=== PATIENT | male | born 1955 | race Caucasian/White ===

== ENCOUNTER 2016-07-25 20:35 | Emergency (ER) | payer BC, OTHER ==
[2016-07-25 20:40] VITALS: BP 154/88; PULSE 106; RESP 22; TEMP 98.8; O2SAT 100
--- NOTE | 2016-07-25 22:09 | PD ---
HPI Chief Complaint: Suicide Ideation/Attempt Time Seen by Provider: 21:57 Travel History International Travel<30 days: No Contact w/Intl Traveler<30days: No Traveled to known affect area: No History of Present Illness HPI Patient is a 61-year-old male who presents to emergency room for a psychiatric evaluation. Patient reports that he is an alcoholic, reports that he has been feeling suicidal. Patient reports that he feels as if he has no purpose in life and reports that he has a loaded gun at home, which he plans to use for suicide. Patient reports that he has a and son at home - reports "i just have no use for this life anymore." Patient denies any recent drugs, reports that he does use alcohol daily, patient did drink today. PFSH Past Medical History Blood Disorders: No Anxiety: Yes Depression: Yes Heart Rhythm Problems: No Cardiovascular Problems: Yes (ANGINA ) High Cholesterol: No Chest Pain: No Congestive Heart Failure: No Diminished Hearing: No Endocrine: No Gastrointestinal Disorders: No Genitourinary: No Hepatitis: Yes (HEP C) Hypertension: No Immune Disorder: No Implanted Vascular Access Dvce: No Musculoskeletal: No Neurologic: No Psychiatric: Yes Reproductive: No Respiratory: No Immunizations Current: Yes Seizures: Yes (DUE TO ALCOHOL WITHDRAWL) Influenza Vaccination: Yes Past Surgical History Oral Surgery: Yes (TEETH EXTRACTIONS) Other Surgery: Yes (UNKNOWN BACK SURGERY) Social History Alcohol Use: Yes Tobacco Use: No (QUIT 7 MONTHS AGO) Substance Use: Yes (ALCOHOL) Allergies-Medications (Allergen,Severity, Reaction): Coded Allergies: Prozac (Unverified Allergy, Mild, Rash, 07/25/16) Penicillin (Verified Allergy, Unknown, 04/15/16) Reported Meds & Prescriptions Reported Meds & Active Scripts Active No Active Prescriptions or Reported Medications Review of Systems General / Constitutional: No: Fever Eyes: No: Visual changes HENT: No: Headaches Cardiovascular: No: Chest Pain or Discomfort Respiratory: No: Shortness of Breath Gastrointestinal: No: Abdominal Pain Genitourinary: No: Dysuria Musculoskeletal: No: Pain Skin: No Rash Neurologic: No: Weakness Psychiatric: Positive: Depression, Suicidal Ideations, Substance Abuse Endocrine: No: Polydipsia Hematologic/Lymphatic: No: Easy Bruising Physical Exam Narrative GENERAL: No acute distress, nontoxic SKIN: Warm and dry. HEAD: Atraumatic. Normocephalic. EYES: Pupils equal and round. No scleral icterus. No injection or drainage. ENT: No nasal bleeding or discharge. Mucous membranes pink and moist. NECK: Trachea midline. No JVD. CARDIOVASCULAR: Regular rate and rhythm. No murmur appreciated. RESPIRATORY: No accessory muscle use. Clear to auscultation. Breath sounds equal bilaterally. GASTROINTESTINAL: Abdomen soft, non-tender, nondistended. Hepatic and splenic margins not palpable. MUSCULOSKELETAL: No obvious deformities. No clubbing. No cyanosis. No edema. NEUROLOGICAL: Awake and alert. No obvious cranial nerve deficits. Motor grossly within normal limits. Normal speech. PSYCHIATRIC: Depressed mood, suicidal idealizations Data Data Last Documented VS Vital Signs Date Time Temp Pulse Resp B/P Pulse Ox O2 Delivery O2 Flow Rate FiO2 07/25/16 20:40 98.8 106 22 154/88 100 Room Air Orders Complete Blood Count With Diff (07/25/16 21:55) Comprehensive Metabolic Panel (07/25/16 21:55) Psych Screen (07/25/16 21:55) Drug Screen, Random Urine (07/25/16 21:55) Alcohol (Ethanol) (07/25/16 21:55) Salicylates (Aspirin) (07/25/16 21:55) Tylenol (Acetaminophen) (07/25/16 21:55) Labs Laboratory Tests Test 07/25/16 07/25/16 22:00 23:00 White Blood Count 7.0 TH/MM3 Red Blood Count 4.80 MIL/MM3 Hemoglobin 14.9 GM/DL Hematocrit 43.5 % Mean Corpuscular Volume 90.6 FL Mean Corpuscular Hemoglobin 31.1 PG Mean Corpuscular Hemoglobin 34.3 % Concent Red Cell Distribution Width 13.3 % Platelet Count 210 TH/MM3 Mean Platelet Volume 6.9 FL Neutrophils (%) (Auto) 46.4 % Lymphocytes (%) (Auto) 42.7 % Monocytes (%) (Auto) 9.3 % Eosinophils (%) (Auto) 1.0 % Basophils (%) (Auto) 0.6 % Neutrophils # (Auto) 3.2 TH/MM3 Lymphocytes # (Auto) 3.0 TH/MM3 Monocytes # (Auto) 0.6 TH/MM3 Eosinophils # (Auto) 0.1 TH/MM3 Basophils # (Auto) 0.0 TH/MM3 CBC Comment DIFF FINAL Differential Comment Salicylates Level LESS THAN 1.7 MG/DL Sodium Level 150 MEQ/L Potassium Level 3.9 MEQ/L Chloride Level 114 MEQ/L Carbon Dioxide Level 23.2 MEQ/L Anion Gap 13 MEQ/L Blood Urea Nitrogen 13 MG/DL Creatinine 0.83 MG/DL Estimat Glomerular Filtration 95 ML/MIN Rate Random Glucose 76 MG/DL Calcium Level 8.6 MG/DL Total Bilirubin 1.1 MG/DL Aspartate Amino Transf 47 U/L (AST/SGOT) Alanine Aminotransferase 62 U/L (ALT/SGPT) Alkaline Phosphatase 62 U/L Total Protein 7.8 GM/DL Albumin 4.3 GM/DL Acetaminophen Level LESS THAN 2.0 MCG/ML Ethyl Alcohol Level 288 MG/DL Urine Opiates Screen NEG Urine Barbiturates Screen NEG Urine Amphetamines Screen NEG Urine Benzodiazepines Screen NEG Urine Cocaine Screen NEG Urine Cannabinoids Screen NEG MDM Medical Decision Making Medical Screen Exam Complete: Yes Emergency Medical Condition: Yes Interpretation(s) Vital Signs Date Time Temp Pulse Resp B/P Pulse Ox O2 Delivery O2 Flow Rate FiO2 07/25/16 20:40 98.8 106 22 154/88 100 Room Air Differential Diagnosis Depression, suicidal evaluations, alcohol abuse Narrative Course Patient is a 61-year-old male who presents to emergency room for evaluation of suicidal evaluations. Patient reports that he is an alcoholic, reports that he feels as if he has no purpose in life. Patient reports that he feel suicidal, reports that he would like to the gun and shoot himself. Patient does have a loaded gun at home. Last drink was prior to coming to ER. Psychiatric screening labs ordered. Will have patient see psychiatric screeners once cleared Scripts No Active Prescriptions or Reported Meds Shaina Renee DO Jul 25, 2016 22:09
[2016-07-25 22:52] LABS: AUTOMATED NEUTROPHIL # 3.2 TH/MM3 (1.8-7.7); BASOPHIL % 0.6 % (0.0-2.0); EOSINOPHIL # 0.1 TH/MM3 (0-0.4); HEMATOCRIT 43.5 % (39.0-51.0); HEMO FLAGS DIFF FINAL; LYMPH % 42.7 % (9.0-44.0); MEAN CELL VOLUME 90.6 FL (80.0-100.0); MEAN CORPUSCULAR HEMOGLOBIN 31.1 PG (27.0-34.0); MEAN CORPUSCULAR HGB CONC 34.3 % (32.0-36.0); MONO % 9.3 % (0.0-8.0); NEUT % 46.4 % (16.0-70.0); PLATELET COUNT 210 TH/MM3 (150-450); RED CELL DISTRIBUTION WIDTH 13.3 % (11.6-17.2)
[2016-07-25 23:19] LABS: ANION GAP 13 MEQ/L (5-15); AST (GOT) 47 U/L (15-37); BICARBONATE 23.2 MEQ/L (21.0-32.0); BLOOD UREA NITROGEN 13 MG/DL (7-18); CHLORIDE 114 MEQ/L (98-107); GLOMERULAR FILTRATION RATE 95 ML/MIN (>89); POTASSIUM 3.9 MEQ/L (3.5-5.1); SODIUM (NA) 150 MEQ/L (136-145)
[2016-07-25 23:22] LABS: ALKALINE PHOSPHATASE 62 U/L (45-117); ALT (GPT) 62 U/L (12-78); TOTAL BILIRUBIN ADULT 1.1 MG/DL (0.2-1.0)
[2016-07-25 23:36] LABS: AMPHETAMINE, URINE NEG (NEG); BARBITURATES, URINE NEG (NEG); COCAINE, URINE NEG (NEG)
[2016-07-26 00:19] LABS: ACETAMINOPHEN LESS THAN 2.0 MCG/ML (10.0-30.0)
[2016-07-26 02:29] VITALS: BP 111/60; PULSE 65; RESP 16; O2SAT 100
[2016-07-26 04:52] VITALS: BP 133/63; PULSE 78; RESP 19; O2SAT 95
[2016-07-26 07:02] VITALS: BP 126/69; PULSE 77; RESP 18; O2SAT 94
[2016-07-26 07:48] VITALS: BP 134/77; PULSE 66; PULSE 67; RESP 18; O2SAT 95
[2016-07-26 09:39] VITALS: BP 163/87; PULSE 88
[2016-07-26] MEDS ORDERED: LORazepam 2 MG/ML VIAL IM ONE (09:45)
[2016-07-26 11:00] VITALS: BP 146/78; PULSE 72; RESP 18; O2SAT 98
[2016-07-26] MEDS ORDERED: chlordiazePOXIDE 25 MG CAP PO SCH (13:00)
--- NOTE | 2016-07-26 14:18 | PD ---
History of Present Illness Chief Complaint: Suicide Ideation/Attempt Time Seen by Provider: 14:00 Travel History International Travel<30 Days: No Contact w/Intl Traveler<30days: No Known affected area: No Legal Status Legal Status: Voluntary History of Present Illness: History of Present Illness HPI Patient is a 61-year-old male with history of alcohol dependence who presents to emergency room on a voluntary basis for a psychiatric evaluation. As per ED documentation he reported that he has been drinking and has been experiencing suicidal ideation with intent to use a gun. His BAL on arrival to ED was 288. His toxicology is negative otherwise. Patient was monitored in J pod . he is at this time clinically sober. Patient is wake, alert and oriented.He appears older than stated age and his hygiene and grooming is poor. He is calm and engaging. He states ' I don't know why I thought I could have a couple of drinks." His speech is clear and logical. His mood is somber. There is no psychosis and no dilip. He states that he has been living at [facility] and has been sober for the past 4 months. He has been working as well. This week he went to lunch with a friend and decided to have a wine cooler. Since then he has been drinking. On the day that he presented to ed he was intoxicated and felt suicidal. He no longer endorses suicidal ideation and is wanting to be discharged. he is having frequent contact with his and his 19 year old daughter and is attending [facility]. He is not currently receiving psychiatric treatment. PFSH Past Medical History Blood Disorders: No Anxiety: Yes Depression: Yes Heart Rhythm Problems: No Cardiovascular Problems: Yes (ANGINA ) High Cholesterol: No Chest Pain: No Congestive Heart Failure: No Diminished Hearing: No Endocrine: No Gastrointestinal Disorders: No Genitourinary: No Hepatitis: Yes (HEP C) Hypertension: No Immune Disorder: No Implanted Vascular Access Dvce: No Musculoskeletal: No Neurologic: No Psychiatric: Yes Reproductive: No Respiratory: No Immunizations Current: Yes Seizures: Yes (DUE TO ALCOHOL WITHDRAWL) Influenza Vaccination: Yes Past Surgical History Oral Surgery: Yes (TEETH EXTRACTIONS) Other Surgery: Yes (UNKNOWN BACK SURGERY) Psychiatric History Psychiatric History Hx Psychiatric Treatment: PATIENT WAS LAST ADMITTED TO [facility] FROM 11/25/15 TO 11/29/15 FOR DEPRESSION associated with alcohol abuse. History of Inpatient Treatment: Yes Guns or firearms in home: No Social History male.Has a daughter. Lives in sober living program. works at [employer]. Hx Alcohol Use: Yes Hx Tobacco Use: No (QUIT 7 MONTHS AGO) Hx Substance Use: Yes Substance Use Type: Alcohol Other Substances Used: States he abuses all substances Hx of Substance Use Treatment: Yes Family Psychiatric History None reported Allergies-Medications (Allergen,Severity, Reaction): Coded Allergies: Prozac (Unverified Allergy, Mild, Rash, 07/25/16) Penicillin (Verified Allergy, Unknown, 04/15/16) Reported Meds & Prescriptions Reported Meds & Active Scripts Active No Active Prescriptions or Reported Medications Review of Systems Except as stated in HPI: all other systems reviewed are Neg Psychiatric: DENIES: Anxiety, Confusion, Mood changes, Depression, Hallucinations, Agitation, Suicidal Ideation, Homicidal Ideation, Delusions Exam Alert: Yes Roby: Person (ox4) Mood: Calm Affect: Euthymic Speech: Clear, Logical Eye Contact: Normal Memory Intact: Comment (no impairmetn) Hallucinations: Other (negative) Delusions: No Suicidal: Ideation (denies any) Homicidal: Ideation (denies any) Insight/Judgement Fair. Not impaired. MDM Medical Decision Making Medical Record Reviewed: Yes Assessment/Plan 61 year old male with history of alcohol dependence who is living at a sober house. He has been sober x 4 months. Today while intoxicated he presented to ed with reports of suicidal ideation. He was allowed to sober up clinically in safe environment. At this time he is clinically sober and denies any suicidal or homicidal ideation, intent or plan. He is requesting discharge. He is future. I strongly suspect that he was unable to return to [facility] in an intoxicated manner and presented to ED instead. Discharge at this time. Orders Complete Blood Count With Diff (07/25/16 21:55) Comprehensive Metabolic Panel (07/25/16 21:55) Psych Screen (07/25/16 21:55) Drug Screen, Random Urine (07/25/16 21:55) Alcohol (Ethanol) (07/25/16 21:55) Salicylates (Aspirin) (07/25/16 21:55) Tylenol (Acetaminophen) (07/25/16 21:55) Diet Regular Basic (07/26/16 Breakfast) Diet Regular Basic (07/26/16 Lunch) Lorazepam Inj (Ativan Inj) (07/26/16 09:45) Chlordiazepoxide (Librium) (07/26/16 13:00) Diet Regular Basic (07/26/16 Dinner) Results Vital Signs Date Time Temp Pulse Resp B/P Pulse Ox O2 Delivery O2 Flow Rate FiO2 07/26/16 11:00 72 18 146/78 98 Room Air 07/26/16 09:39 88 163/87 07/26/16 07:48 66 18 134/77 95 Room Air 07/26/16 07:02 77 18 126/69 94 Room Air 07/26/16 04:52 78 19 133/63 95 Room Air 07/26/16 02:29 65 16 111/60 100 Room Air 07/25/16 20:40 98.8 106 22 154/88 100 Room Air Laboratory Tests Test 07/25/16 07/25/16 22:00 23:00 White Blood Count 7.0 Red Blood Count 4.80 Hemoglobin 14.9 Hematocrit 43.5 Mean Corpuscular Volume 90.6 Mean Corpuscular Hemoglobin 31.1 Mean Corpuscular Hemoglobin 34.3 Concent Red Cell Distribution Width 13.3 Platelet Count 210 Mean Platelet Volume 6.9 Neutrophils (%) (Auto) 46.4 Lymphocytes (%) (Auto) 42.7 Monocytes (%) (Auto) 9.3 Eosinophils (%) (Auto) 1.0 Basophils (%) (Auto) 0.6 Neutrophils # (Auto) 3.2 Lymphocytes # (Auto) 3.0 Monocytes # (Auto) 0.6 Eosinophils # (Auto) 0.1 Basophils # (Auto) 0.0 CBC Comment DIFF FINAL Differential Comment Salicylates Level LESS THAN 1.7 Sodium Level 150 Potassium Level 3.9 Chloride Level 114 Carbon Dioxide Level 23.2 Anion Gap 13 Blood Urea Nitrogen 13 Creatinine 0.83 Estimat Glomerular Filtration 95 Rate Random Glucose 76 Calcium Level 8.6 Total Bilirubin 1.1 Aspartate Amino Transf 47 (AST/SGOT) Alanine Aminotransferase 62 (ALT/SGPT) Alkaline Phosphatase 62 Total Protein 7.8 Albumin 4.3 Acetaminophen Level LESS THAN 2.0 Ethyl Alcohol Level 288 Urine Opiates Screen NEG Urine Barbiturates Screen NEG Urine Amphetamines Screen NEG Urine Benzodiazepines Screen NEG Urine Cocaine Screen NEG Urine Cannabinoids Screen NEG Diagnosis Primary Impression: Alcohol dependence with acute alcoholic intoxication Psychiatrically Cleared: Yes Med/ Other Pt Specific Info: No Meds Exist/No RX given Prescriptions No Active Prescriptions or Reported Meds Disposition: 01 DISCHARGE HOME Condition: Stable Problem Qualifiers Primary Impression: Alcohol dependence with acute alcoholic intoxication Qualified Code: F10.220 - Alcohol dependence with acute alcoholic intoxication , uncomplicated Kasey Taylor [facility] Jul 26, 2016 14:18
== END 2016-07-26 15:50 | disposition home or self-care (01) ==
LOC: NEPA 20:35 → NEPJ 07-26 15:50
DX: F10.229 Alcohol dependence with intoxication, unspecified (principal)
CPT/HCPCS: 80053; 80307; 85025; 96372; 99284; J2060

== ENCOUNTER 2016-09-13 17:47 | Emergency (ER) | payer SELFPAY ==
[~2016-09-13] VITALS: Ht 182.9 cm; Wt 72.5 kg
[2016-09-13 17:59] VITALS: BP 134/78; PULSE 87; RESP 18; TEMP 98.2; O2SAT 98
--- NOTE | 2016-09-13 18:22 | PD ---
HPI Chief Complaint: Alcohol/Drug Intoxication Time Seen by Provider: 18:22 Travel History International Travel<30 days: No Contact w/Intl Traveler<30days: No Traveled to known affect area: No History of Present Illness HPI 61-year-old male with long-standing history of alcoholism presents to emergency department for evaluation. Patient states that he is very depressed and he would like detox from alcohol. He states that he has been having suicidal thoughts with no active plan. States he has been drinking heavily today. Denies any fever or chills. Denies any other acute medical needs at this time. PFSH Past Medical History Blood Disorders: No Anxiety: Yes Depression: Yes Heart Rhythm Problems: No Cardiovascular Problems: Yes (ANGINA ) High Cholesterol: No Chest Pain: No Congestive Heart Failure: No Diminished Hearing: No Endocrine: No Gastrointestinal Disorders: No Genitourinary: No Hepatitis: Yes (HEP C) Hypertension: No Immune Disorder: No Implanted Vascular Access Dvce: No Musculoskeletal: No Neurologic: No Psychiatric: Yes Reproductive: No Respiratory: No Immunizations Current: Yes Seizures: Yes (DUE TO ALCOHOL WITHDRAWL) Past Surgical History Oral Surgery: Yes (TEETH EXTRACTIONS) Other Surgery: Yes (UNKNOWN BACK SURGERY) Social History Alcohol Use: Yes Tobacco Use: No (QUIT 7 MONTHS AGO) Substance Use: Yes Allergies-Medications (Allergen,Severity, Reaction): Coded Allergies: Prozac (Unverified Allergy, Mild, Rash, 09/13/16) Penicillin (Verified Allergy, Unknown, 09/13/16) Reported Meds & Prescriptions Reported Meds & Active Scripts Active No Active Prescriptions or Reported Medications Review of Systems Except as stated in HPI: all other systems reviewed are Neg Physical Exam Narrative GENERAL: Unkempt male patient, in no acute distress SKIN: Focused skin assessment warm/dry. HEAD: Atraumatic. Normocephalic. EYES: Pupils equal and round. No scleral icterus. No injection or drainage. ENT: No nasal bleeding or discharge. Mucous membranes pink and moist. NECK: Trachea midline. No JVD. CARDIOVASCULAR: Regular rate and rhythm. No murmur appreciated. RESPIRATORY: No accessory muscle use. Clear to auscultation. Breath sounds equal bilaterally. GASTROINTESTINAL: Abdomen soft, non-tender, nondistended. Hepatic and splenic margins not palpable. MUSCULOSKELETAL: No obvious deformities. No clubbing. No cyanosis. No edema. NEUROLOGICAL: Awake and alert. No obvious cranial nerve deficits. Motor grossly within normal limits. Normal speech. Data Data Last Documented VS Vital Signs Date Time Temp Pulse Resp B/P Pulse Ox O2 Delivery O2 Flow Rate FiO2 09/13/16 17:59 98.2 87 18 134/78 98 Orders Complete Blood Count With Diff (09/13/16 18:28) Basic Metabolic Panel (Bmp) (09/13/16 18:28) Psych Screen (09/13/16 18:28) Drug Screen, Random Urine (09/13/16 18:28) Alcohol (Ethanol) (09/13/16 18:28) Labs Laboratory Tests Test 09/13/16 18:57 White Blood Count 3.9 TH/MM3 Red Blood Count 4.45 MIL/MM3 Hemoglobin 14.2 GM/DL Hematocrit 41.8 % Mean Corpuscular Volume 93.8 FL Mean Corpuscular Hemoglobin 31.8 PG Mean Corpuscular Hemoglobin 33.9 % Concent Red Cell Distribution Width 15.7 % Platelet Count 65 TH/MM3 Mean Platelet Volume 7.0 FL Neutrophils (%) (Auto) 42.9 % Lymphocytes (%) (Auto) 35.5 % Monocytes (%) (Auto) 19.2 % Eosinophils (%) (Auto) 1.3 % Basophils (%) (Auto) 1.1 % Neutrophils # (Auto) 1.7 TH/MM3 Lymphocytes # (Auto) 1.4 TH/MM3 Monocytes # (Auto) 0.7 TH/MM3 Eosinophils # (Auto) 0.1 TH/MM3 Basophils # (Auto) 0.0 TH/MM3 CBC Comment AUTO DIFF Sodium Level 138 MEQ/L Potassium Level 3.1 MEQ/L Chloride Level 98 MEQ/L Carbon Dioxide Level 29.2 MEQ/L Anion Gap 11 MEQ/L Blood Urea Nitrogen 10 MG/DL Creatinine 0.98 MG/DL Estimat Glomerular Filtration 78 ML/MIN Rate Random Glucose 104 MG/DL Calcium Level 8.3 MG/DL Ethyl Alcohol Level 396 MG/DL [facility] Medical Decision Making Medical Screen Exam Complete: Yes Emergency Medical Condition: Yes Medical Record Reviewed: Yes Differential Diagnosis Intoxication versus substance abuse versus mood disorder versus personality disorder versus adjustment reaction disorder versus malingering Narrative Course 61-year-old male presents to emergency department for evaluation. Patient appears without distress. His vital signs are stable. He is not showing any signs of withdrawal at this time. Lab work is ordered for medical clearance. Pending no acute lab abnormality, patient will be medically cleared and undergo psychiatric screening for further evaluation and disposition. CBC is without acute concern. BMP is with hypokalemia 3.1. This is repleted in the emergency department. EtOH is 396. Patient will be monitored until he is clinically sober at which time he'll be medically cleared to undergo psychiatric screening for further evaluation and disposition. Diagnosis Primary Impression: Substance induced mood disorder Additional Impressions: Hypokalemia Alcohol abuse with intoxication Scripts No Active Prescriptions or Reported Meds Condition: Stable Nanda Downing Sep 13, 2016 18:22
[2016-09-13 19:15] LABS: AUTOMATED NEUTROPHIL # 1.7 TH/MM3 (1.8-7.7); BASOPHIL % 1.1 % (0.0-2.0); EOSINOPHIL # 0.1 TH/MM3 (0-0.4); EOSINOPHIL % 1.3 % (0.0-4.0); HEMATOCRIT 41.8 % (39.0-51.0); LYMPH % 35.5 % (9.0-44.0); LYMPHOCYTE # 1.4 TH/MM3 (1.0-4.8); MEAN CELL VOLUME 93.8 FL (80.0-100.0); MEAN CORPUSCULAR HEMOGLOBIN 31.8 PG (27.0-34.0); MEAN CORPUSCULAR HGB CONC 33.9 % (32.0-36.0); MONO % 19.2 % (0.0-8.0); NEUT % 42.9 % (16.0-70.0); PLATELET COUNT 65 TH/MM3 (150-450); RED BLOOD COUNT 4.45 MIL/MM3 (4.50-5.90); RED CELL DISTRIBUTION WIDTH 15.7 % (11.6-17.2); WHITE BLOOD COUNT 3.9 TH/MM3 (4.0-11.0)
[2016-09-13 19:20] LABS: HEMO FLAGS AUTO DIFF
[2016-09-13 19:33] LABS: BICARBONATE 29.2 MEQ/L (21.0-32.0); POTASSIUM 3.1 MEQ/L (3.5-5.1)
[2016-09-13 20:01] LABS: PLATELET ESTIMATE SMEAR LOW (NORMAL); PLATELET MORPHOLOGY NORMAL (NORMAL); SCAN/DIFF AUTO DIFF CONFIRMED
[2016-09-13 20:47] LABS: AMPHETAMINE, URINE NEG (NEG); BARBITURATES, URINE NEG (NEG); COCAINE, URINE NEG (NEG)
[2016-09-14] MEDS ORDERED: FLUMAZENIL 0.5 MG/5 ML VIAL IV PUSH PRN (00:15)
[2016-09-14] MEDS ORDERED: LORazepam 1 MG TAB PO PRN (00:15)
[2016-09-14] MEDS ORDERED: chlordiazePOXIDE 25 MG CAP PO ONE (00:15)
[2016-09-14] MEDS ORDERED: LORazepam 2 MG TAB PO PRN (00:15)
[2016-09-14] MEDS ORDERED: LORazepam 2 MG/ML VIAL IV PUSH PRN ×4 (00:15)
[2016-09-14 05:43] VITALS: BP 117/65; PULSE 81; RESP 17; TEMP 98.3; O2SAT 97
== END 2016-09-14 06:51 | disposition left against medical advice (07) ==
LOC: NEPD 17:47
DX: F39 Unspecified mood [affective] disorder (principal); E87.6 Hypokalemia; F10.129 Alcohol abuse with intoxication, unspecified; F41.8 Other specified anxiety disorders; F17.201 Nicotine dependence, unspecified, in remission; Y90.8 Blood alcohol level of 240 mg/100 ml or more
CPT/HCPCS: 80048; 80307; 85025; 99285

== ENCOUNTER 2016-09-22 00:21 | Inpatient (IN) | payer SELFPAY ==
[~2016-09-22] VITALS: Ht 182.9 cm; Wt 73.0 kg
[2016-09-22] VITALS (8 sets, daily range): BP systolic 116–161; BP diastolic 69–92; PULSE 52–72; RESP 15–22; TEMP 97.4–98.7; O2SAT 98–99
[2016-09-22] MEDS ORDERED: SODIUM CHLORID 0.9% 500 ML INJ 500 ML IV ONE (03:15)
[2016-09-22] MEDS ORDERED: SODIUM CHLOR 0.9% 1000 ML INJ 1,000 ML IV SCH (03:15)
[2016-09-22] MEDS ORDERED: LORazepam 2 MG/ML VIAL IV PUSH ONE (03:15)
[2016-09-22 04:13] LABS: AUTOMATED NEUTROPHIL # 2.1 TH/MM3 (1.8-7.7); BASOPHIL % 0.7 % (0.0-2.0); EOSINOPHIL % 0.8 % (0.0-4.0); HEMATOCRIT 45.1 % (39.0-51.0); LYMPH % 47.2 % (9.0-44.0); LYMPHOCYTE # 2.3 TH/MM3 (1.0-4.8); MEAN CELL VOLUME 97.4 FL (80.0-100.0); MEAN CORPUSCULAR HEMOGLOBIN 32.8 PG (27.0-34.0); MEAN CORPUSCULAR HGB CONC 33.7 % (32.0-36.0); MONO % 8.9 % (0.0-8.0); NEUT % 42.4 % (16.0-70.0); PLATELET COUNT 60 TH/MM3 (150-450); RED BLOOD COUNT 4.63 MIL/MM3 (4.50-5.90); RED CELL DISTRIBUTION WIDTH 16.3 % (11.6-17.2); WHITE BLOOD COUNT 4.9 TH/MM3 (4.0-11.0)
--- NOTE | 2016-09-22 04:20 | PD ---
HPI Chief Complaint: Alcohol/Drug Intoxication Time Seen by Provider: 03:05 Travel History International Travel<30 days: No Contact w/Intl Traveler<30days: No Traveled to known affect area: No History of Present Illness HPI 61-year-old male presents to the emergency department by private transportation for evaluation of possible alcohol withdrawal. Patient states she's had no alcohol to drink since morning. Patient states that he follow decided that he would just stop drinking alcohol because he has someone who cares for him and he is decided that it's time to stop. Patient is not tapered himself off of alcohol. Patient states he feels tremulous. Patient last drank alcohol reportedly again on morning and presents now for evaluation. Patient denies other concerns or complaints. No fall or injury. Patient does have prior history of hypertension, angina, alcohol withdrawal related seizure, anxiety depression, and hepatitis C. Patient presently taking no prescription medications. PFSH Past Medical History Blood Disorders: No Anxiety: Yes Depression: Yes Heart Rhythm Problems: No Cardiovascular Problems: Yes (ANGINA ) High Cholesterol: No Chest Pain: No Congestive Heart Failure: No Diminished Hearing: No Endocrine: No Gastrointestinal Disorders: No Genitourinary: No Hepatitis: Yes (HEP C) Hypertension: No Immune Disorder: No Implanted Vascular Access Dvce: No Musculoskeletal: No Neurologic: No Psychiatric: Yes Reproductive: No Respiratory: No Immunizations Current: Yes Seizures: Yes (DUE TO ALCOHOL WITHDRAWL) Past Surgical History Oral Surgery: Yes (TEETH EXTRACTIONS) Other Surgery: Yes (UNKNOWN BACK SURGERY) Social History Alcohol Use: Yes Tobacco Use: No (QUIT 7 MONTHS AGO) Substance Use: No Allergies-Medications (Allergen,Severity, Reaction): Coded Allergies: Prozac (Unverified Allergy, Mild, Rash, 09/22/16) Penicillin (Verified Allergy, Unknown, 09/22/16) Reported Meds & Prescriptions Reported Meds & Active Scripts Active No Active Prescriptions or Reported Medications Review of Systems Except as stated in HPI: all other systems reviewed are Neg General / Constitutional: No: Fever, Chills Eyes: No: Visual changes HENT: No: Headaches, Neck Pain Cardiovascular: No: Chest Pain or Discomfort, Palpitations, Diaphoresis Respiratory: No: Shortness of Breath, Pleuritic Pain Gastrointestinal: No: Nausea, Vomiting, Abdominal Pain Genitourinary: No: Flank Pain Musculoskeletal: No: Myalgias, Arthralgias Skin: No Rash Neurologic: Positive: Weakness, No: Dizziness, Syncope, Focal Abnormalities, Headache, Change in Mentation, Slurred Speech, Paresthesia Psychiatric: Positive: Anxiety, No: Depression, Suicidal Ideations, Mood Disorder, Substance Abuse, Homicidal Ideation Endocrine: No: Heat Intolerance Hematologic/Lymphatic: No: Easy Bruising Physical Exam Narrative GENERAL: Well-developed well-nourished male in no acute distress no respiratory distress SKIN: Warm and dry. HEAD: Atraumatic. Normocephalic. EYES: Pupils equal and round. No scleral icterus. No injection or drainage. ENT: No nasal bleeding or discharge. Mucous membranes pink and moist. NECK: Trachea midline. No JVD. CARDIOVASCULAR: Regular rate and rhythm. RESPIRATORY: No accessory muscle use. Clear to auscultation. Breath sounds equal bilaterally. GASTROINTESTINAL: Abdomen soft, non-tender, nondistended. Hepatic and splenic margins not palpable. MUSCULOSKELETAL: Extremities without clubbing, cyanosis, or edema. No obvious deformities. NEUROLOGICAL: Awake and alert. No obvious cranial nerve deficits. Motor grossly within normal limits. Five out of 5 muscle strength in the arms and legs. Normal speech. PSYCHIATRIC: Appropriate mood and affect; insight and judgment normal. Data Data Last Documented VS Vital Signs Date Time Temp Pulse Resp B/P Pulse Ox O2 Delivery O2 Flow Rate FiO2 09/22/16 05:38 98.7 52 18 116/79 98 Room Air Orders Complete Blood Count With Diff (09/22/16 03:05) Comprehensive Metabolic Panel (09/22/16 03:05) Drug Screen, Random Urine (09/22/16 03:05) Alcohol (Ethanol) (09/22/16 03:05) Magnesium (Mg) (09/22/16 03:05) Electrocardiogram (09/22/16 ) Troponin I (09/22/16 03:05) Chest, Single Ap (09/22/16 ) Sodium Chlorid 0.9% 500 Ml Inj (Ns 500 M (09/22/16 03:15) Sodium Chlor 0.9% 1000 Ml Inj (Ns 1000 M (09/22/16 03:15) Lorazepam Inj (Ativan Inj) (09/22/16 03:15) Thiamine Inj (Thiamine Inj) (09/22/16 05:00) Dext 5%-Nacl 0.45% 1000 Ml Inj (D5w-1/2 (09/22/16 05:00) Urinalysis - C+S If Indicated (09/22/16 04:58) Admit Order (Ed Use Only) (09/22/16 ) ^ Saline Lock (09/22/16 05:55) Resp Oxygen Oscar C Titrat 1-4 L (09/22/16 ) Notify Dr: Other (09/22/16 05:55) Sodium Chloride 0.9% Flush (Ns Flush) (09/22/16 09:00) Sodium Chloride 0.9% Flush (Ns Flush) (09/22/16 06:00) Labs Laboratory Tests Test 09/22/16 09/22/16 04:00 04:10 White Blood Count 4.9 TH/MM3 Red Blood Count 4.63 MIL/MM3 Hemoglobin 15.2 GM/DL Hematocrit 45.1 % Mean Corpuscular Volume 97.4 FL Mean Corpuscular Hemoglobin 32.8 PG Mean Corpuscular Hemoglobin 33.7 % Concent Red Cell Distribution Width 16.3 % Platelet Count 60 TH/MM3 Mean Platelet Volume 7.6 FL Neutrophils (%) (Auto) 42.4 % Lymphocytes (%) (Auto) 47.2 % Monocytes (%) (Auto) 8.9 % Eosinophils (%) (Auto) 0.8 % Basophils (%) (Auto) 0.7 % Neutrophils # (Auto) 2.1 TH/MM3 Lymphocytes # (Auto) 2.3 TH/MM3 Monocytes # (Auto) 0.4 TH/MM3 Eosinophils # (Auto) 0.0 TH/MM3 Basophils # (Auto) 0.0 TH/MM3 CBC Comment AUTO DIFF Differential Comment AUTO DIFF CONFIRMED Platelet Estimate LOW Platelet Morphology Comment NORMAL Sodium Level 150 MEQ/L Potassium Level 3.9 MEQ/L Chloride Level 115 MEQ/L Carbon Dioxide Level 24.1 MEQ/L Anion Gap 11 MEQ/L Blood Urea Nitrogen 4 MG/DL Creatinine 0.74 MG/DL Estimat Glomerular Filtration 108 ML/MIN Rate Random Glucose 77 MG/DL Calcium Level 8.2 MG/DL Magnesium Level 2.0 MG/DL Total Bilirubin 0.7 MG/DL Aspartate Amino Transf 161 U/L (AST/SGOT) Alanine Aminotransferase 101 U/L (ALT/SGPT) Alkaline Phosphatase 60 U/L Troponin I LESS THAN 0.02 NG/ML Total Protein 7.9 GM/DL Albumin 4.1 GM/DL Ethyl Alcohol Level 403 MG/DL Urine Color YELLOW Urine Turbidity CLEAR Urine pH 5.0 Urine Specific [place] 1.018 Urine Protein TRACE mg/dL Urine Glucose (UA) NEG mg/dL Urine Ketones NEG mg/dL Urine Occult Blood NEG Urine Nitrite NEG Urine Bilirubin NEG Urine Urobilinogen LESS THAN 2.0 MG/DL Urine Leukocyte Esterase NEG Urine RBC LESS THAN 1 /hpf Urine WBC LESS THAN 1 /hpf Urine Hyaline Casts 1 /lpf Urine Mucus FEW /lpf Microscopic Urinalysis Comment CULT NOT INDICATED Urine Opiates Screen NEG Urine Barbiturates Screen NEG Urine Amphetamines Screen NEG Urine Benzodiazepines Screen POS Urine Cocaine Screen NEG Urine Cannabinoids Screen NEG MDM Medical Decision Making Medical Screen Exam Complete: Yes Emergency Medical Condition: Yes Medical Record Reviewed: Yes Interpretation(s) EKG: Sinus bradycardia rate [address] elevation or injury patern Differential Diagnosis Alcohol ingestion, alcohol withdrawal, electrolyte disturbance, arrhythmia, polysubstance ingestion, hypertension Narrative Course The patient was placed on monitor and storage bin tender IV access obtained specimens collected and sent for resulting patient given bolus of normal saline 1 500 cc times one Maintenance fluid of normal saline and 100 cc per hour Specimens resulting CBC within normal limits except for mild thrombocytopenia and 60,000 however chemistries remarkable for hypernatremia of 150 with normal creatinine and GFR and low normal random glucose is 77; fluid changed to D5 half -normal at 100 cc per hour; (patient first received thiamine 100 mg IV); patient previously complaint of feeling tremulous although mentation intact GCS of 15 no visible tremor neurologic exam otherwise intact administered Ativan 0.5 mg IV Serum alcohol was noted to be elevated at 405 Patient informed of plan for admission in view of hyponatremia and is agreeable to stay. Patient's case discussed with on-call medicine and finish sander at medicine request Physician Communication Physician Communication discussed with [facility] service and finish sander service Diagnosis Primary Impression: Hypernatremia Additional Impression: Alcohol abuse Scripts No Active Prescriptions or Reported Meds Alysa Wheatley MD September 22, 2016 04:20
[2016-09-22 04:26] LABS: HEMO FLAGS AUTO DIFF
[2016-09-22 04:39] LABS: ALT (GPT) 101 U/L (12-78); ANION GAP 11 MEQ/L (5-15); AST (GOT) 161 U/L (15-37); BICARBONATE 24.1 MEQ/L (21.0-32.0); BLOOD UREA NITROGEN 4 MG/DL (7-18); CHLORIDE 115 MEQ/L (98-107); GLOMERULAR FILTRATION RATE 108 ML/MIN (>89); POTASSIUM 3.9 MEQ/L (3.5-5.1); SODIUM (NA) 150 MEQ/L (136-145)
[2016-09-22 04:39] LABS: AMPHETAMINE, URINE NEG (NEG); BARBITURATES, URINE NEG (NEG); COCAINE, URINE NEG (NEG)
--- NOTE | 2016-09-22 04:40 | RADRPT ---
EXAM DATE/TIME: 09/22/2016 03:15 [place] COMPARISON: CHEST SINGLE AP, November 21, 2015, 0:00. INDICATIONS : Shortness of breath. MEDICAL HISTORY : None. SURGICAL HISTORY : None. ENCOUNTER: Initial ACUITY: 1 day PAIN SCORE: Non-responsive. LOCATION: Bilateral chest FINDINGS: A single view of the chest demonstrates the lungs to be symmetrically aerated without evidence of mas s, infiltrate or effusion. The cardiomediastinal contours are unremarkable. Osseous structures are intact. CONCLUSION: No acute disease. Jameson Weems MD on September 22, 2016 at 4:38 Board Certified Radiologist. This report was verified electronically.
[2016-09-22 04:44] LABS: ALKALINE PHOSPHATASE 60 U/L (45-117); TOTAL BILIRUBIN ADULT 0.7 MG/DL (0.2-1.0)
[2016-09-22 04:50] LABS: PLATELET ESTIMATE SMEAR LOW (NORMAL); PLATELET MORPHOLOGY NORMAL (NORMAL); SCAN/DIFF AUTO DIFF CONFIRMED
[2016-09-22] MEDS ORDERED: THIAMINE INJ 100 MG in SODIUM CHLORIDE 0.9% INJ 100 ML IV ONE (05:00)
[2016-09-22] MEDS ORDERED: DEXT 5%-NACL 0.45% 1000 ML INJ 1,000 ML IV SCH (05:00)
[2016-09-22 05:23] LABS: BLOOD, URINE NEG (NEG); GLUCOSE,URINE NEG (NEG); HYALINE CAST, URINE 1 /lpf (RARE); KETONE, URINE NEG (NEG); MUCUS URINE FEW /lpf (OCC); NITRITE,URINE NEG (NEG); URINE COLOR YELLOW (YELLW/STRAW)
[2016-09-22 05:24] LABS: COMMENT (UR) CULT NOT INDICATED; CULTURE IF INDICATED CULT NOT INDICATED
[2016-09-22] MEDS ORDERED: SODIUM CHLORIDE 0.9% FLUSH 10 ML FLUSH IVF PRN (06:00)
[2016-09-22] MEDS ORDERED: ONDANSETRON HCL 4 MG/2 ML VIAL IVP PRN (06:30)
[2016-09-22] MEDS ORDERED: BISACODYL 10 MG SUPP RECTAL PRN (06:30)
[2016-09-22] MEDS ORDERED: LORazepam 1 MG TAB PO PRN (06:30)
[2016-09-22] MEDS ORDERED: HALOPERIDOL LACTATE 5 MG/ML AMP IM PRN (06:30)
[2016-09-22] MEDS ORDERED: FLUMAZENIL 0.5 MG/5 ML VIAL IV PUSH PRN (06:30)
[2016-09-22] MEDS ORDERED: SODIUM CHLORIDE 0.9% FLUSH 10 ML FLUSH IV FLUSH PRN (06:30)
[2016-09-22] MEDS ORDERED: LORazepam 2 MG TAB PO PRN (06:30)
[2016-09-22] MEDS ORDERED: LORazepam 2 MG/ML VIAL IV PUSH PRN ×4 (06:30)
[2016-09-22] MEDS ORDERED: ACETAMINOPHEN 325 MG TAB PO PRN (06:30)
--- NOTE | 2016-09-22 07:53 | HHI.HP ---
[facility] Unknown Admission Diagnosis hypernatremia; alcohol abuse Diagnoses: (1) Hypernatremia Diagnosis: Principal (2) Alcohol abuse Diagnosis: Principal Chief Complaint: ' I couldn't stop shaking.' Travel History International Travel<30 Days: No Contact w/Intl Traveler <30 Da: No Traveled to Known Affected Are: No History of Present Illness patient is a 61 y/o male, alcohol abuser, who presented to ER stating that he couldn't stop shaking. he says that he's been drinking ' a lot' over the past two months, his last drink was yesterday. he says that he had some diarrhea with on and off rectal bleed over the past three weeks.he has mild periumbilical abdominal pain.denies nausea or vomiting. Review of Systems Constitutional: DENIES: Fever, Weight loss, Chills, Night Sweats Eyes: DENIES: Blurred vision, Diplopia, Vision loss, Double Vision Ears, nose, mouth, throat: DENIES: Tinnitus, Vertigo, Throat pain, Epistaxis Respiratory: DENIES: Apneas, Cough, Snoring, Wheezing, Hemoptysis, Sputum production, Shortness of breath Cardiovascular: DENIES: Chest pain, Palpitations, Syncope, Dyspnea on Exertion , PND, Lower Extremity Edema, Orthopnea, Claudication Gastrointestinal: COMPLAINS OF: Abdominal pain, Bloody stools, DENIES: Black stools, Constipation, Diarrhea, Nausea, Vomiting, Difficulty Swallowing, Anorexia Genitourinary: DENIES: Urinary frequency, Urgency, Hematuria, Dysuria Musculoskeletal: DENIES: Joint pain, Muscle aches, Stiffness, Joint Swelling Integumentary: DENIES: Rash Neurologic: DENIES: Abnormal gait, Headache, Localized weakness, Paresthesias, Seizures, Speech Problems, Tremor, Poor Balance Psychiatric: COMPLAINS OF: Anxiety, DENIES: Confusion, Mood changes, Depression, Hallucinations, Agitation, Suicidal Ideation, Homicidal Ideation, Delusions Past Family Social History Past Medical History hepatitis C Past Surgical History oral surgery Reported Medications none reported. Allergies: Coded Allergies: Prozac (Unverified Allergy, Mild, Rash, 09/22/16) Penicillin (Verified Allergy, Unknown, 09/22/16) Active Ordered Medications Current Medications Sodium Chloride 500 ml @ 500 mls/hr BOLUS ONCE IV Last administered on 04:04; Start 09/22/16 at 03:15; Stop 09/22/16 at 04:14; Status DC Sodium Chloride (NS 1000 ml Inj) 1,000 ml @ 100 mls/hr Q10H IV Last administered on 09/22/16 04:04; Start 09/22/16 at 03:15; Stop 09/22/16 at 04:49; Status DC Lorazepam 0.5 mg 0.5 mg ONCE ONCE IV PUSH Last administered on 09/22/16 04:04 ; Start 09/22/16 at 03:15; Stop 09/22/16 at 03:16; Status DC Thiamine HCl 100 mg/Sodium Chloride 101 ml @ 101 mls/hr ONCE ONCE IV Last administered on 09/22/16 05:06; Start 09/22/16 at 05:00; Stop 09/22/16 at 05:59; Status DC Dextrose/Sodium Chloride (D5W-1/2 NS 1000 ml Inj) 1,000 ml @ 125 mls/hr Q8H IV Last administered on 09/22/16 05:38; Start 09/22/16 at 05:00 Sodium Chloride (NS Flush) 2 ml BID IV FLUSH ; Start 09/22/16 at 09:00; Stop 09/22 at 09:00; Status DC Sodium Chloride (NS Flush) 2 ml UNSCH PRN IVF FLUSH AFTER USING IV ACCESS; Start 09/22/16 at 06:00; Stop 09/22/16 at 06:30; Status DC Folic Acid (Folate) 1 mg DAILY PO ; Start 09/22/16 at 09:00; Stop 09/27/16 at 08: 59 Thiamine HCl (Vitamin B1) 100 mg DAILY PO ; Start 09/22/16 at 09:00 Multivitamins/ Minerals Therapeutic (Theragran M Tab) 1 tab DAILY PO ; Start 09/22/16 at 09:00; Stop 09/27/16 at 08:59 Flumazenil (Romazicon Inj) 0.2 mg Q1M PRN IV PUSH SEE LABEL COMMENTS; Start 09/22/16 at 06:30 Lorazepam (Ativan) 1 mg Q4H PRN PO CIWA 8 - 10; Start 09/22/16 at 06:30 Lorazepam (Ativan Inj) 1 mg Q4H PRN IV PUSH CIWA 8 - 10 Last administered on t 06:45; Start 09/22/16 at 06:30 Lorazepam (Ativan) 2 mg Q2H PRN PO CIWA 11-14; Start 09/22/16 at 06:30 Lorazepam (Ativan Inj) 2 mg Q2H PRN IV PUSH CIWA 11-14; Start 09/22/16 at 06:30 Lorazepam (Ativan Inj) 2 mg Q1H PRN IV PUSH CIWA 15-20; Start 09/22/16 at 06:30 Lorazepam (Ativan Inj) 2 mg Q15M PRN IV PUSH CIWA > 20; Start 09/22/16 at 06:30 Haloperidol Lactate (Haldol Inj) 2 mg Q15M PRN IM SEE LABEL COMMENTS; Start 09/22/16 at 06:30 Sodium Chloride (NS Flush) 2 ml UNSCH PRN IV FLUSH FLUSH AFTER USING IV ACCESS ; Start 09/22/16 at 06:30 Sodium Chloride (NS Flush) 2 ml BID IV FLUSH ; Start 09/22/16 at 09:00 Ondansetron HCl (Zofran Inj) 4 mg Q6H PRN IVP NAUSEA OR VOMITING; Start at 06:30 Bisacodyl (Dulcolax Supp) 10 mg DAILY PRN RECTAL CONSTIPATION; Start 09/22/16 at 06:30 Acetaminophen (Tylenol) 650 mg Q6H PRN PO FEVER; Start 09/22/16 at 06:30 Oxycodone HCl (Roxicodone) 10 mg Q4H PRN PO PAIN SCALE 6 TO 10; Start 09/22/16 at 06:30 Oxycodone HCl (Roxicodone) 5 mg Q4H PRN PO PAIN SCALE 3 TO 5; Start 09/22/16 at 06:30 Social History used to smoke and use IV drugs- drinks heavily. Physical Exam Vital Signs Vital Signs Date Time Temp Pulse Resp B/P Pulse Ox O2 Delivery O2 Flow Rate FiO2 09/22/16 06:44 61 18 147/74 99 Room Air 09/22/16 06:07 98 09/22/16 05:38 98.7 52 18 116/79 98 Room Air 09/22/16 04:05 55 18 136/69 99 Room Air 09/22/16 02:46 68 22 117/78 99 Room Air 09/22/16 00:24 97.4 72 15 161/92 98 Room Air Physical Exam GENERAL: This is a well-nourished, well-developed patient, in no apparent distress. SKIN: No rashes, ecchymoses or lesions. Cool and dry. HEAD: Atraumatic. Normocephalic. No temporal or scalp tenderness. EYES: Pupils equal round and reactive. Extraocular motions intact. No scleral icterus. No injection or drainage. ENT: Nose without bleeding, purulent drainage or septal hematoma. Throat without erythema, tonsillar hypertrophy or exudate. Uvula midline. Airway patent. NECK: Trachea midline. No JVD or lymphadenopathy. Supple, nontender, no meningeal signs. CARDIOVASCULAR: Regular rate and rhythm without murmurs, gallops, or rubs. RESPIRATORY: Clear to auscultation. Breath sounds equal bilaterally. No wheezes , rales, or rhonchi. GASTROINTESTINAL: Abdomen soft, non-tender, nondistended. No hepato-splenomegaly , or palpable masses. No guarding. MUSCULOSKELETAL: Extremities without clubbing, cyanosis, or edema. No joint tenderness, effusion, or edema noted. No calf tenderness. Negative Homans sign bilaterally. NEUROLOGICAL: Awake and alert. Cranial nerves II through XII intact. Motor and sensory grossly within normal limits. Five out of 5 muscle strength in all muscle groups. Normal speech. with tremors of both hands. Laboratory Laboratory Tests Test 09/22/16 09/22/16 04:00 04:10 White Blood Count 4.9 Red Blood Count 4.63 Hemoglobin 15.2 Hematocrit 45.1 Mean Corpuscular Volume 97.4 Mean Corpuscular Hemoglobin 32.8 Mean Corpuscular Hemoglobin 33.7 Concent Red Cell Distribution Width 16.3 Platelet Count 60 Mean Platelet Volume 7.6 Neutrophils (%) (Auto) 42.4 Lymphocytes (%) (Auto) 47.2 Monocytes (%) (Auto) 8.9 Eosinophils (%) (Auto) 0.8 Basophils (%) (Auto) 0.7 Neutrophils # (Auto) 2.1 Lymphocytes # (Auto) 2.3 Monocytes # (Auto) 0.4 Eosinophils # (Auto) 0.0 Basophils # (Auto) 0.0 CBC Comment AUTO DIFF Differential Comment AUTO DIFF CONFIRMED Platelet Estimate LOW Platelet Morphology Comment NORMAL Sodium Level 150 Potassium Level 3.9 Chloride Level 115 Carbon Dioxide Level 24.1 Anion Gap 11 Blood Urea Nitrogen 4 Creatinine 0.74 Estimat Glomerular Filtration 108 Rate Random Glucose 77 Calcium Level 8.2 Magnesium Level 2.0 Total Bilirubin 0.7 Aspartate Amino Transf 161 (AST/SGOT) Alanine Aminotransferase 101 (ALT/SGPT) Alkaline Phosphatase 60 Troponin I LESS THAN 0.02 Total Protein 7.9 Albumin 4.1 Ethyl Alcohol Level 403 Urine Color YELLOW Urine Turbidity CLEAR Urine pH 5.0 Urine Specific [place] 1.018 Urine Protein TRACE Urine Glucose (UA) NEG Urine Ketones NEG Urine Occult Blood NEG Urine Nitrite NEG Urine Bilirubin NEG Urine Urobilinogen LESS THAN 2.0 Urine Leukocyte Esterase NEG Urine RBC LESS THAN 1 Urine WBC LESS THAN 1 Urine Hyaline Casts 1 Urine Mucus FEW Microscopic Urinalysis Comment CULT NOT INDICATED Urine Opiates Screen NEG Urine Barbiturates Screen NEG Urine Amphetamines Screen NEG Urine Benzodiazepines Screen POS Urine Cocaine Screen NEG Urine Cannabinoids Screen NEG Result Diagram: 09/22/16 0400 09/22/16 0400 Imaging Last Impressions Chest X-Ray 09/22/16 0000 Signed Impressions: Service Date/Time: Thursday, September 22, 2016 03:15 - CONCLUSION: No acute disease. Jameson Weems MD Assessment and Plan Assessment and Plan A/P - alcohol withdrawal continue with CIWA protocol, thiamin, folic acid and multivitamin advised to stop drinking. -episodes of rectal bleed- H/H stable- had EGD last year with esophagitis, duodenitis and gastritis will consider Gi evaluation if rectal bleed recurs or with drop in H/H start PPI and monitor H/H -hypernatremia- will continue with IV fluid-will monitor -thrombocytopenia/ elevated LFT's due to alcohol - will monitor -DVT prophylaxis with SCD's Discussed Condition With the patient. Physician Certification 2 Midnight Certification Type: Admission for Inpatient Services Order for Inpatient Services The services are ordered in accordance with Medicare regulations or non- Medicare payer requirements, as applicable. In the case of services not specified as inpatient-only, they are appropriately provided as inpatient services in accordance with the 2-midnight benchmark. Estimated LOS (days): 2 days is the estimated time the patient will need to remain in the hospital, assuming treatment plan goals are met and no additional complications. Post-Hospital Plan: Home Angelia Garcia MD September 22, 2016 07:53
[2016-09-22] MEDS ORDERED: SODIUM CHLORIDE 0.9% FLUSH 10 ML FLUSH IV FLUSH SCH ×2 (09:00)
[2016-09-22] MEDS ORDERED: FOLIC ACID 1 MG TAB PO SCH (09:00)
[2016-09-22] MEDS ORDERED: MULTIVITAMINS/MINERALS THERAPEUTIC TAB PO SCH (09:00)
[2016-09-22] MEDS ORDERED: PANTOPRAZOLE SODIUM 40 MG VIAL IV PUSH SCH (09:00)
[2016-09-22] MEDS ORDERED: THIAMINE HCL 100 MG TAB PO SCH (09:00)
--- NOTE | 2016-09-22 15:25 | EKG ---
Date Performed: 09/22/2016 Time Performed: 04:04:09 PTAGE: 61 years EKG: SINUS BRADYCARDIA BORDERLINE ECG NO PREVIOUS TRACING DOCTOR: Tobias Frost Interpretating Date/Time 09/22/2016 15:23:52
== END 2016-09-22 10:25 | disposition left against medical advice (07) | DRG 894 ==
LOC: NEPC 00:21 → NEDA 05:57 → N04A 07:20
PROVIDERS: ADMIT Internal Medicine; ATTEND Internal Medicine
DX: F10.239 Alcohol dependence with withdrawal, unspecified (principal); E87.0 Hyperosmolality and hypernatremia; D69.6 Thrombocytopenia, unspecified; R56.9 Unspecified convulsions; K62.5 Hemorrhage of anus and rectum; I10 Essential (primary) hypertension; B19.20 Unspecified viral hepatitis C without hepatic coma; Z87.891 Personal history of nicotine dependence; R10.33 Periumbilical pain; R19.7 Diarrhea, unspecified
CPT/HCPCS: 71010; 80053; 80307; 81001; 83735; 84484; 85025; 93005; 96361; 96365; 96367; 96375; C9113; J2060; J3411; J7030; J7040

== ENCOUNTER 2016-10-08 16:02 | Inpatient (IN) | payer SELFPAY ==
[~2016-10-08] VITALS: Ht 177.8 cm; Wt 73.8 kg
[2016-10-08] VITALS (13 sets, daily range): BP systolic 100–126; BP diastolic 62–77; PULSE 65–95; RESP 16–18; TEMP 97–98.6; O2SAT 95–100
[2016-10-08] MEDS ORDERED: SODIUM CHLOR 0.9% 1000 ML INJ 1,000 ML IV ONE (16:23)
--- NOTE | 2016-10-08 16:28 | PD ---
HPI Chief Complaint: Alcohol/Drug Intoxication Time Seen by Provider: 16:12 Travel History International Travel<30 days: No Contact w/Intl Traveler<30days: No Traveled to known affect area: No History of Present Illness HPI 61-year-old male with history of hepatitis C, alcoholism presents via EMS for evaluation of alcohol intoxication. Reportedly the patient drank a pint of vodka this morning. He was found asleep on the sidewalk. The paramedics were concerned because he did not seem to be sweating. He is currently alert and oriented. He reports that he has been drinking all morning. He reports that he has a history of alcoholism and he would like to quit drinking. In the past he has attempted to go to [facility] for detox. He denies any pain, shortness of breath, headache, nausea or vomiting, abdominal pain. He has no other complaints. PFSH Past Medical History Blood Disorders: No Anxiety: Yes Depression: Yes Heart Rhythm Problems: No Cardiovascular Problems: Yes (ANGINA ) High Cholesterol: No Chest Pain: No Congestive Heart Failure: No Diminished Hearing: No Endocrine: No Gastrointestinal Disorders: No Genitourinary: No Hepatitis: Yes (HEP C) Hypertension: No Immune Disorder: No Implanted Vascular Access Dvce: No Musculoskeletal: No Neurologic: No Psychiatric: Yes Reproductive: No Respiratory: No Immunizations Current: Yes Seizures: Yes (DUE TO ALCOHOL WITHDRAWL) Past Surgical History Oral Surgery: Yes (TEETH EXTRACTIONS) Other Surgery: Yes (UNKNOWN BACK SURGERY) Social History Alcohol Use: Yes Tobacco Use: No (QUIT 7 MONTHS AGO) Substance Use: No Allergies-Medications (Allergen,Severity, Reaction): Coded Allergies: Prozac (Unverified Allergy, Mild, Rash, 10/08/16) Penicillin (Verified Allergy, Unknown, 10/08/16) Reported Meds & Prescriptions Reported Meds & Active Scripts Active No Active Prescriptions or Reported Medications Review of Systems Except as stated in HPI: all other systems reviewed are Neg Physical Exam Narrative GENERAL: Disheveled-appearing male who is in no acute distress. He is intoxicated but he is answering questions when prompted and responding to commands properly. SKIN: Warm and dry. HEAD: Atraumatic. Normocephalic. No obvious scalp injury. EYES: Pupils equal and round. No scleral icterus. No injection or drainage. ENT: No nasal bleeding or discharge. Mucous membranes pink and moist. NECK: Trachea midline. No JVD. CARDIOVASCULAR: Regular rate and rhythm. No murmur appreciated. RESPIRATORY: No accessory muscle use. Clear to auscultation. Breath sounds equal bilaterally. GASTROINTESTINAL: Abdomen soft, non-tender, nondistended. Hepatic and splenic margins not palpable. MUSCULOSKELETAL: No obvious deformities. No obvious deformity to the upper or lower extremities. No tenderness to palpation along the neck or back. NEUROLOGICAL: Awake and alert. No obvious cranial nerve deficits. Motor grossly within normal limits. Slurred PSYCHIATRIC: Appropriate mood and affect; insight and judgment normal. Data Data Last Documented VS Vital Signs Date Time Temp Pulse Resp B/P Pulse Ox O2 Delivery O2 Flow Rate FiO2 10/08/16 19:00 96 100 10/08/16 18:10 71 18 112/71 10/08/16 16:22 97.0 Orders Electrocardiogram (10/08/16 16:23) Complete Blood Count With Diff (10/08/16 16:23) Comprehensive Metabolic Panel (10/08/16 16:23) Magnesium (Mg) (10/08/16 16:23) Ckmb (Isoenzyme) Profile (10/08/16 16:23) Ecg Monitoring (10/08/16 16:23) Iv Access Insert/Monitor (10/08/16 16:23) Sodium Chlor 0.9% 1000 Ml Inj (Ns 1000 M (10/08/16 16:23) Sodium Chlorid 0.9% 500 Ml Inj (Ns 500 M (10/08/16 16:30) Thiamine Inj (Thiamine Inj) (10/08/16 16:30) Diet Regular Basic (10/08/16 Dinner) Potassium Chloride (Kcl) (10/08/16 17:45) Alcohol (Ethanol) (10/08/16 18:42) Etomidate Inj (Amidate Inj) (10/08/16 18:45) Succinylcholine Inj (Quelicin Inj) (10/08/16 18:45) Midazolam Inj (Versed Inj) (10/08/16 18:56) Midazolam Inj (Versed Inj) (10/08/16 19:00) Midazolam Inj (Versed Inj) (10/08/16 19:00) Midazolam Inj (Versed Inj) (10/08/16 19:07) Admit Order (Ed Use Only) (10/08/16 19:08) Chest, Single Ap (10/08/16 ) Labs Laboratory Tests Test 10/08/16 16:35 White Blood Count 6.1 TH/MM3 Red Blood Count 3.72 MIL/MM3 Hemoglobin 12.2 GM/DL Hematocrit 35.6 % Mean Corpuscular Volume 95.8 FL Mean Corpuscular Hemoglobin 32.7 PG Mean Corpuscular Hemoglobin 34.1 % Concent Red Cell Distribution Width 15.2 % Platelet Count 47 TH/MM3 Mean Platelet Volume 7.2 FL Neutrophils (%) (Auto) 64.2 % Lymphocytes (%) (Auto) 21.3 % Monocytes (%) (Auto) 13.3 % Eosinophils (%) (Auto) 0.4 % Basophils (%) (Auto) 0.8 % Neutrophils # (Auto) 3.9 TH/MM3 Lymphocytes # (Auto) 1.3 TH/MM3 Monocytes # (Auto) 0.8 TH/MM3 Eosinophils # (Auto) 0.0 TH/MM3 Basophils # (Auto) 0.0 TH/MM3 CBC Comment AUTO DIFF Differential Comment AUTO DIFF CONFIRMED Platelet Estimate LOW Platelet Morphology Comment NORMAL Red Cell Morphology Comment NORMAL Sodium Level 145 MEQ/L Potassium Level 3.3 MEQ/L Chloride Level 111 MEQ/L Carbon Dioxide Level 25.9 MEQ/L Anion Gap 8 MEQ/L Blood Urea Nitrogen 9 MG/DL Creatinine 0.77 MG/DL Estimat Glomerular Filtration 103 ML/MIN Rate Random Glucose 86 MG/DL Calcium Level 7.8 MG/DL Magnesium Level 1.8 MG/DL Total Bilirubin 0.7 MG/DL Aspartate Amino Transf 62 U/L (AST/SGOT) Alanine Aminotransferase 58 U/L (ALT/SGPT) Alkaline Phosphatase 54 U/L Total Creatine Kinase 72 U/L Total Protein 6.8 GM/DL Albumin 3.4 GM/DL [facility] Medical Decision Making Medical Screen Exam Complete: Yes Emergency Medical Condition: Yes Medical Record Reviewed: Yes Interpretation(s) EKG normal sinus rhythm Platelet count 47 Potassium 3.3 Differential Diagnosis Intoxication, dehydration, rhabdomyolysis, electrolyte abnormality Narrative Course 61-year-old male with known history of alcoholism presents after being found asleep on a sidewalk. He is currently intoxicated but he is answering my questions appropriately and responding to commands appropriately. He has no obvious injury and he has no complaints of acute injury. He would like to quit drinking. He was given 500 mL of IV fluids via EMS. He'll be given additional 2 L of fluids. Plan is for basic lab work, EKG, ECG monitoring and pulse oximetry. The patient's lab work is been reviewed. He has chronic thrombocytopenia likely secondary to alcohol abuse. Mild hypokalemia. He will be given oral potassium chloride here. The patient will remain here until he is clinically sober and then he will be discharged. 1825: Informed that the patient was eating some chicken when he began choking. He desaturated into the high 70s. Myself and Dr. Wayne attempted Heimlich maneuvers but his discomfort persisted. He was placed on a nonrebreathing mask and his oxygen saturation went up to 98%. He has decreased breath sounds in the right lung. He is placed on 6 L nasal cannula however his oxygen saturation is dropping to 85%. The decision has therefore been made to intubate the patient. Pulmonology has also been called. Admitted to ICU. Diagnosis Primary Impression: Alcohol abuse Additional Impressions: Hypokalemia Aspiration into airway Qualified Code: T17.908A - Aspiration into airway, initial encounter Admitting Information Admitting Physician Requests: Admit Referrals: [facility] No Active Prescriptions or Reported Meds Disposition: DISCHARGE HOME Condition: Stable Jed Pires October 08, 2016 16:28
[2016-10-08] MEDS ORDERED: THIAMINE INJ 100 MG in SODIUM CHLORIDE 0.9% INJ 100 ML IV ONE (16:30)
[2016-10-08] MEDS ORDERED: SODIUM CHLORID 0.9% 500 ML INJ 500 ML IV ONE (16:30)
[2016-10-08 17:07] LABS: AUTOMATED NEUTROPHIL # 3.9 TH/MM3 (1.8-7.7); BASOPHIL % 0.8 % (0.0-2.0); EOSINOPHIL % 0.4 % (0.0-4.0); HEMATOCRIT 35.6 % (39.0-51.0); LYMPH % 21.3 % (9.0-44.0); LYMPHOCYTE # 1.3 TH/MM3 (1.0-4.8); MEAN CELL VOLUME 95.8 FL (80.0-100.0); MEAN CORPUSCULAR HEMOGLOBIN 32.7 PG (27.0-34.0); MEAN CORPUSCULAR HGB CONC 34.1 % (32.0-36.0); MONO % 13.3 % (0.0-8.0); NEUT % 64.2 % (16.0-70.0); PLATELET COUNT 47 TH/MM3 (150-450); RED BLOOD COUNT 3.72 MIL/MM3 (4.50-5.90); RED CELL DISTRIBUTION WIDTH 15.2 % (11.6-17.2); WHITE BLOOD COUNT 6.1 TH/MM3 (4.0-11.0)
[2016-10-08 17:15] LABS: HEMO FLAGS AUTO DIFF
[2016-10-08 17:24] LABS: ANION GAP 8 MEQ/L (5-15); AST (GOT) 62 U/L (15-37); BICARBONATE 25.9 MEQ/L (21.0-32.0); BLOOD UREA NITROGEN 9 MG/DL (7-18); CHLORIDE 111 MEQ/L (98-107); GLOMERULAR FILTRATION RATE 103 ML/MIN (>89); MAGNESIUM 1.8 MG/DL (1.5-2.5); POTASSIUM 3.3 MEQ/L (3.5-5.1); SODIUM (NA) 145 MEQ/L (136-145)
[2016-10-08 17:28] LABS: ALKALINE PHOSPHATASE 54 U/L (45-117); ALT (GPT) 58 U/L (12-78); TOTAL BILIRUBIN ADULT 0.7 MG/DL (0.2-1.0)
[2016-10-08 17:30] LABS: CREATINE KINASE 72 U/L (39-308)
[2016-10-08 17:37] LABS: PLATELET ESTIMATE SMEAR LOW (NORMAL); PLATELET MORPHOLOGY NORMAL (NORMAL); SCAN/DIFF AUTO DIFF CONFIRMED
[2016-10-08] MEDS ORDERED: POTASSIUM CHLORIDE 20 MEQ CONTROLLED RELEASE TAB PO ONE (17:45)
--- NOTE | 2016-10-08 18:41 | PD ---
Physical Exam Narrative I, Dr. Wayne, have reviewed the advance practice practitioner's documentation and am in agreement, met with the patient face to face, made the diagnosis, and the medical decision making was done by me. *My assessment and Findings: Alcohol intoxication 61yo M was brought in for alcohol intoxication. Pt was answering questions. Labs reviewed, no leukocytosis. CMP unremarkable. Informed by nurse at 6:19pm that he choked while eating chicken. Pt was desaturating to high 70s to low 80s and placed on oxygen. Pt states he was eating chicken and was coughing and now has trouble breathing. Attempted heimlsch maneuver but was unsuccessful. Attempted to look in his mouth with laryngoscope and saw the epiglottis without seeing any obvious foreign bodies that I can pull out. Pt has decreased breath sounds in right lower lung. Impression is aspiration. Signs Cleaner paged immediately. Pt reevaluated and is saturating at 85% on 100% nonrebreather. Pt emergently intubated at bedside. CXR showed good ET and OG tube position. Right lower lobe consolidation which may be pneumonitis from aspiration. Placed pt on versed drip. Discussed with butter production supervisor Dr. Nixon and accepted to her service. Data Data Last Documented VS Vital Signs Date Time Temp Pulse Resp B/P Pulse Ox O2 Delivery O2 Flow Rate FiO2 10/08/16 19:00 96 100 10/08/16 18:10 71 18 112/71 10/08/16 16:22 97.0 Orders Electrocardiogram (10/08/16 16:23) Complete Blood Count With Diff (10/08/16 16:23) Comprehensive Metabolic Panel (10/08/16 16:23) Magnesium (Mg) (10/08/16 16:23) Ckmb (Isoenzyme) Profile (10/08/16 16:23) Ecg Monitoring (10/08/16 16:23) Iv Access Insert/Monitor (10/08/16 16:23) Sodium Chlor 0.9% 1000 Ml Inj (Ns 1000 M (10/08/16 16:23) Sodium Chlorid 0.9% 500 Ml Inj (Ns 500 M (10/08/16 16:30) Thiamine Inj (Thiamine Inj) (10/08/16 16:30) Diet Regular Basic (10/08/16 Dinner) Potassium Chloride (Kcl) (10/08/16 17:45) Alcohol (Ethanol) (10/08/16 18:42) Etomidate Inj (Amidate Inj) (10/08/16 18:45) Succinylcholine Inj (Quelicin Inj) (10/08/16 18:45) Midazolam Inj (Versed Inj) (10/08/16 18:56) Midazolam Inj (Versed Inj) (10/08/16 19:00) Midazolam Inj (Versed Inj) (10/08/16 19:00) Midazolam Inj (Versed Inj) (10/08/16 19:07) Admit Order (Ed Use Only) (10/08/16 19:08) Chest, Single Ap (10/08/16 ) Labs Laboratory Tests Test 10/08/16 16:35 White Blood Count 6.1 TH/MM3 Red Blood Count 3.72 MIL/MM3 Hemoglobin 12.2 GM/DL Hematocrit 35.6 % Mean Corpuscular Volume 95.8 FL Mean Corpuscular Hemoglobin 32.7 PG Mean Corpuscular Hemoglobin 34.1 % Concent Red Cell Distribution Width 15.2 % Platelet Count 47 TH/MM3 Mean Platelet Volume 7.2 FL Neutrophils (%) (Auto) 64.2 % Lymphocytes (%) (Auto) 21.3 % Monocytes (%) (Auto) 13.3 % Eosinophils (%) (Auto) 0.4 % Basophils (%) (Auto) 0.8 % Neutrophils # (Auto) 3.9 TH/MM3 Lymphocytes # (Auto) 1.3 TH/MM3 Monocytes # (Auto) 0.8 TH/MM3 Eosinophils # (Auto) 0.0 TH/MM3 Basophils # (Auto) 0.0 TH/MM3 CBC Comment AUTO DIFF Differential Comment AUTO DIFF CONFIRMED Platelet Estimate LOW Platelet Morphology Comment NORMAL Red Cell Morphology Comment NORMAL Sodium Level 145 MEQ/L Potassium Level 3.3 MEQ/L Chloride Level 111 MEQ/L Carbon Dioxide Level 25.9 MEQ/L Anion Gap 8 MEQ/L Blood Urea Nitrogen 9 MG/DL Creatinine 0.77 MG/DL Estimat Glomerular Filtration 103 ML/MIN Rate Random Glucose 86 MG/DL Calcium Level 7.8 MG/DL Magnesium Level 1.8 MG/DL Total Bilirubin 0.7 MG/DL Aspartate Amino Transf 62 U/L (AST/SGOT) Alanine Aminotransferase 58 U/L (ALT/SGPT) Alkaline Phosphatase 54 U/L Total Creatine Kinase 72 U/L Total Protein 6.8 GM/DL Albumin 3.4 GM/DL Acetaminophen Level LESS THAN 2.0 MCG/ML Ethyl Alcohol Level 326 MG/DL MDM Supervised Visit with DIANNE: Yes Critical Care Narrative Aggregate critical care time was 60 minutes. Time to perform other separately billable procedures was not included in the critical care time. My time did not include minutes spent treating any other patients simultaneously or on activities that did not directly contribute to the patient's treatment. The services I provided to this patient were to treat and/or prevent clinically significant deterioration that could result in: Respiratory collapse and . I provided critical care services requiring my management, as noted below: Chart data review, documentation time, medication orders and management, vital sign assessments/reviewing monitor data, ordering and reviewing lab tests, ordering and interpreting/reviewing x-rays and diagnostic studies, care of the patient and discussion of the patient with the admitting physicians. Procedures Procedure Narrative The patient was put in optimal position for the procedure. Rapid sequence intubation was initiated by me using 20 milligrams of etomidate IV and 100 milligrams of succinylcholine IV. The patient was intubated with a 8.0 cuffed endotracheal tube. Tube placement was confirmed by visualization of the tube and balloon passing through the cords, capnometry and subsequent chest x-ray. Breath sounds were equal and well aerated bilaterally postintubation. No breath sounds over stomach. Patient tolerated procedure well. Diagnosis Primary Impression: Acute respiratory failure Qualified Code: J96.01 - Acute respiratory failure with hypoxia Admitting Information Admitting Physician Requests: Admit Referrals: [facility] No Active Prescriptions or Reported Meds Nimo Wayne DO October 08, 2016 18:41
[2016-10-08] MEDS ORDERED: SUCCINYLCHOLINE CHLORIDE 200 MG/10 ML VIAL IV PUSH ONE (18:45)
[2016-10-08] MEDS ORDERED: ETOMIDATE 20 MG/10 ML VIAL IV PUSH ONE (18:45)
[2016-10-08] MEDS ORDERED: MIDAZOLAM HCL 5 MG/ML VIAL (1 ML) ONE (18:56)
[2016-10-08] MEDS ORDERED: MIDAZOLAM 100 MG/ML INJ 100 ML IV SCH (19:00)
[2016-10-08] MEDS ORDERED: MIDAZOLAM HCL 2 MG/2 ML VIAL IV PUSH ONE (19:00)
[2016-10-08] MEDS ORDERED: MIDAZOLAM 100 MG/ML INJ 100 ML ONE (19:07)
[2016-10-08] MEDS ORDERED: POTASSIUM PHOSPHATE MONOBASIC 500 MG TAB PO PRN (19:15)
[2016-10-08] MEDS ORDERED: POTASSIUM CHLORIDE 25 MEQ EFFERVESCENT TAB PO PRN (19:15)
[2016-10-08] MEDS ORDERED: SODIUM PHOSPHATE INJ 30 MMOL in SODIUM CHLOR 0.9% 250 ML INJ 240 ML IV PRN (19:15)
[2016-10-08] MEDS ORDERED: MAGNESIUM SULFATE INJ 4 GM in SODIUM CHLORIDE 0.9% INJ 92 ML IV PRN (19:15)
[2016-10-08] MEDS ORDERED: POTASSIUM CHLOR 40 MEQ PREMIX 100 ML IV PRN ×2 (19:15)
[2016-10-08] MEDS ORDERED: MAGNESIUM SULFATE INJ 2 GM in SODIUM CHLORIDE 0.9% INJ 96 ML IV PRN (19:15)
[2016-10-08] MEDS ORDERED: POTASSIUM PHOSPHATE MONOBASIC 500 MG TAB PO/TUBE PRN (19:15)
[2016-10-08] MEDS ORDERED: POTASSIUM CHLOR 20 MEQ PREMIX 100 ML IV PRN ×2 (19:15)
[2016-10-08] MEDS ORDERED: MAGNESIUM OXIDE 400 MG TAB PO PRN (19:15)
[2016-10-08] MEDS ORDERED: SODIUM CHLORIDE 0.9% FLUSH 10 ML FLUSH PRN (19:30)
[2016-10-08] MEDS ORDERED: CHLORHEXIDINE GLUCONATE 2 % 1 PACK (2 CLOTHS) TOP PRN (19:30)
[2016-10-08] MEDS ORDERED: MISCELLANEOUS NURSING INFORMATION XX SCH (19:30)
[2016-10-08] MEDS ORDERED: RESP: ALBUTEROL 2.5 MG/3 ML NEB (PRN) INH (19:30)
--- NOTE | 2016-10-08 19:35 | RADRPT ---
EXAM DATE/TIME: 10/08/2016 19:08 [facility] COMPARISON: CHEST SINGLE AP, September 22, 2016, 3:15. INDICATIONS : Post Intubation MEDICAL HISTORY : Unobtainable SURGICAL HISTORY : Unobtainable ENCOUNTER: Initial ACUITY: 1 day PAIN SCORE: Non-responsive. LOCATION: Bilateral chest FINDINGS: There is consolidation at the right lung base and a small right pleural effusion. Left lung reasonabl y clear. No pneumothorax seen on either side. Patient is intubated. Endotracheal tube tip is appropriately positioned about 3 cm above the ministerio. There is a nasogastric tube coursing into the stomach. CONCLUSION: Consolidation and small effusion at the right lung base. Appropriate endotracheal tube and nasogastri c tube positions. Stephen Giles MD on October 08, 2016 at 19:33 Board Certified Radiologist. This report was verified electronically.
[2016-10-08 19:43] LABS: BLOOD GAS BASE EXCESS -0.2 mmol/L (-2-2); BLOOD GAS CARBOXYHEMOGLOBIN 1.1 % (0-4); BLOOD GAS HCO3 24 mmol/L (22-26); BLOOD GAS METHEMOGLOBIN 0.7 % (0-2); BLOOD GAS O2 HGB SATURATION 98 % (90-100); BLOOD GAS OXYGEN CONTENT 18.2 Vol % (12.0-20.0); BLOOD GAS PCO2 43 mmHg (38-42); BLOOD GAS PO2 292 mmHG (61-120); BLOOD GAS TOTAL HGB 12.7 G/DL (12.0-16.0); CRITICAL VALUE NO; OXYGEN DEVICE VENTILATOR; TEMP CORR TO 98.6
[2016-10-08 19:44] LABS: FIO2 100 %; VENT SETTINGS AC/16/500/PEEP5
[2016-10-08 19:45] LABS: DRAW SITE RT RADIAL; NUMBER OF ARTERIAL PUNCTURES 1; STAT YES; ULNAR PULSE PRESENT
[2016-10-08] MEDS: PROPOFOL 1000 MG/100 ML INJ 100 ML IV SCH (20:01)
[2016-10-08] MEDS: D5-1/2 NS + KCL 20 MEQ INJ 1,000 ML IV SCH (20:01)
[2016-10-08] MEDS: RESP: ALBUTEROL 2.5 MG/IPRATROPIUM 0.5 MG NEB (SCH) INH (20:04)
[2016-10-08 20:17] LABS: AMPHETAMINE, URINE NEG (NEG); BARBITURATES, URINE NEG (NEG); COCAINE, URINE NEG (NEG)
[2016-10-08 20:38] LABS: APTT (PATIENT) 27.6 SEC (24.3-30.1); PROTHROMBIN TIME - PATIENT 10.9 SEC (9.8-11.6)
[2016-10-08] MEDS: SODIUM CHLORIDE 0.9% FLUSH 10 ML FLUSH SCH (21:00)
--- NOTE | 2016-10-08 21:20 | HHI.HP ---
HPI Service Critical Care Medicine Primary Care Physician No Primary Care Physician Admission Diagnosis Respiratory failure secondary to aspiration Diagnosis: Travel History International Travel<30 Days: No Contact w/Intl Traveler <30 Da: No Traveled to Known Affected Are: No History of Present Illness 61 yo WM with PMH of Hep C, polysubstance abuse (including heavy EtOH as well as IVDU) who presented to [facility] ED via [facility] after he was found sleeping on the sidewalk. He endorsed drinking all day, up to a pint of vodka. He stated he wished to have assistance with alcohol abuse so he was being held in the ED until clinically sober with the plan to refer to [facility] as an outpatient. He was eating some chicken and began to choke and had desaturations into the 70s.. Heimlich maneuver was performed without apparent result. He was placed on NR and sats remained in 80s with decreased breath sounds on the right. He was ultimately intubated by Dr. Wayne. No foreign body was noted in upper airway during laryngoscopy. Critical care medicine was consulted for admission. Review of Systems ROS Limitations: Clinical Condition, Intubated Past Family Social History Allergies: Coded Allergies: Prozac (Unverified Allergy, Mild, Rash, 10/08/16) Penicillin (Verified Allergy, Unknown, 10/08/16) Past Medical History Patient is unable to provide history due to clinical condition Discussed with patient's sister Erica Rodriguez who states: H/o Hep C Long-term history of heavy alcohol use for over 40 years History of polysubstance abuse including IV drug use (heroin) Tobacco abuse Past Surgical History None Reported Medications None Family History No pertinent family medical history per his sister Social History He has a long-term history of smoking Long-term history of heavy alcohol use. He endorses drinking a pint of vodka this morning His sister states he has a history of polysubstance abuse including heroin His sister is unsure of his marital status. He has been before but she is unsure if he is still . His (or ex-) also has EtoH dependence He has a daughter named Susan Mcmanus who may be a student at [employer]. Physical Exam Vital Signs Vital Signs Date Time Temp Pulse Resp B/P Pulse Ox O2 Delivery O2 Flow Rate FiO2 10/08/16 20:49 73 100/62 98 Ventilator 10/08/16 20:20 77 122/73 99 Ventilator 50 10/08/16 20:06 100 50 10/08/16 19:55 50 10/08/16 19:30 78 16 126/75 100 10/08/16 19:00 96 100 10/08/16 18:10 71 18 112/71 96 10/08/16 16:22 97.0 95 18 115/66 95 Physical Exam Drips: Propofol 10 g per KG per minute 0.9 NaCl with 20 mEq of KCl per liter at 100 mL per hour GENERAL: Disheveled male who is orotracheally intubated, sedated SKIN: Warm and dry. There are dark calluses on bilateral MTP (~3 cm on the right , 2 cm on the left) . HEAD: Atraumatic. Normocephalic. EYES: Pupils equal and round, 2mm and reactive bilaterally. No scleral icterus. Mild bilateral conjunctival injection. ENT: No nasal bleeding or discharge. Mucous membranes dry. Poor dentition. NECK: Trachea midline. No JVD. CARDIOVASCULAR: Regular rate and rhythm. No murmurs rubs or gallops. RESPIRATORY: Breathing temporally on mechanical ventilation without accessory muscle use. Clear to auscultation, diminished right base. GASTROINTESTINAL: Abdomen soft, non-tender, nondistended. Bowel sounds present. : Slater in place with yellow urine output. MUSCULOSKELETAL: Extremities without clubbing, cyanosis, or edema. No obvious deformities. NEUROLOGICAL: Eyes open to noxious stimuli. No obvious cranial nerve deficits. Unable to assess speech. Withdraws with all extremities. No clonus. No response to Babinski Laboratory Laboratory Tests Test 10/08/16 10/08/16 10/08/16 16:35 19:33 19:47 White Blood Count 6.1 Red Blood Count 3.72 Hemoglobin 12.2 Hematocrit 35.6 Mean Corpuscular Volume 95.8 Mean Corpuscular Hemoglobin 32.7 Mean Corpuscular Hemoglobin 34.1 Concent Red Cell Distribution Width 15.2 Platelet Count 47 Mean Platelet Volume 7.2 Neutrophils (%) (Auto) 64.2 Lymphocytes (%) (Auto) 21.3 Monocytes (%) (Auto) 13.3 Eosinophils (%) (Auto) 0.4 Basophils (%) (Auto) 0.8 Neutrophils # (Auto) 3.9 Lymphocytes # (Auto) 1.3 Monocytes # (Auto) 0.8 Eosinophils # (Auto) 0.0 Basophils # (Auto) 0.0 CBC Comment AUTO DIFF Differential Comment AUTO DIFF CONFIRMED Platelet Estimate LOW Platelet Morphology Comment NORMAL Red Cell Morphology Comment NORMAL Sodium Level 145 Potassium Level 3.3 Chloride Level 111 Carbon Dioxide Level 25.9 Anion Gap 8 Blood Urea Nitrogen 9 Creatinine 0.77 Estimat Glomerular Filtration 103 Rate Random Glucose 86 Calcium Level 7.8 Magnesium Level 1.8 Total Bilirubin 0.7 Aspartate Amino Transf 62 (AST/SGOT) Alanine Aminotransferase 58 (ALT/SGPT) Alkaline Phosphatase 54 Total Creatine Kinase 72 Total Protein 6.8 Albumin 3.4 Acetaminophen Level LESS THAN 2.0 Ethyl Alcohol Level 326 Blood Gas Puncture Site RT RADIAL Blood Gas Patient Temperature 98.6 Blood Gas HCO3 24 Blood Gas Base Excess -0.2 Blood Gas Oxygen Saturation 98 Arterial Blood pH 7.37 Arterial Blood Partial 43 Pressure CO2 Arterial Blood Partial 292 Pressure O2 Arterial Blood Oxygen Content 18.2 Arterial Blood 1.1 Carboxyhemoglobin Arterial Blood Methemoglobin 0.7 Blood Gas Hemoglobin 12.7 Oxygen Delivery Device VENTILATOR Blood Gas Ventilator Setting AC/16/500/PEEP5 Blood Gas Inspired Oxygen 100 Prothrombin Time 10.9 Prothromb Time International 1.0 Ratio Activated Partial 27.6 Thromboplast Time Salicylates Level LESS THAN 1.7 Urine Opiates Screen NEG Urine Barbiturates Screen NEG Urine Amphetamines Screen NEG Urine Benzodiazepines Screen POS Urine Cocaine Screen NEG Urine Cannabinoids Screen NEG Date/Time Procedure Status Source Growth 10/08/16 19:40 Aerobic Blood Culture Received Blood Peripheral Pending 10/08/16 19:40 Anaerobic Blood Culture Received Blood Peripheral Pending Result Diagram: 10/08/16 1635 10/08/16 1635 Assessment and Plan Assessment and Plan NEURO: EtOH dependence Acute alcohol intoxication Polysubstance abuse Acute encephalopathy Thiamine, multivitamin Ativan as needed for alcohol withdrawal symptoms Propofol for sedation RASS target -2 salicylate/APAP negative. UDS positive for benzos but performed after he had received versed in the ED. Will need ativan prn for EtOH w/d when off propofol. RESP: Aspiration following choking event Acute respiratory failure Tobacco abuse Ventilator Bundle. Bronchoscopy tonight. Plan to do spontaneous breathing trial and hopefully extubate in a.m. CV: Monitor hemodynamics GI: OG tube to low intermittent wall suction. We'll initiate enteral feeds in 24 hours if not able to extubate. FEN/RENAL: Slater in place. Monitor intake and output. Monitor electrolytes and replace as indicated per ICU electrolyte replacement protocol. 0.9 NaCl with 20 mEq of KCl per liter at 100 ml/h ID: History of hepatitis C and IV drug use PCN allergy (sister states he is allergic, unknown severity) CXR with RLL consolidation. Sent BAL with gram stain, culture, sensitivity . Follow-up blood cultures Aztreonam 2 g IV every 8 hours, Flagyl 500 mg IV every 8 hours. HEME: Chronic anemia Chronic thrombocytopenia Likely secondary to EtOH abuse ENDO: Euglycemic PROPH: SCDs for DVT prophylaxis. Hold pharmacologic DVT prophylaxis due to severe thrombocytopenia. Protonix 40 mg IV daily for stress ulcer prophylaxis. ACCESS: Peripheral IV providing adequate access at this time. Discussed with Dr. Wayne. Discussed with ED RN, ICU charge nurse I have updated patients sister, Erica Gil (lives in [place], listed as his first contact). Erica called their sister Aminta Mcmanus and asked that I also update her. She is an ED nurse in [employer]. I called and her voicemail box was full. She later called me back and I updated her also. Aminta Mcmanus wishes to be updated with any major updates, regardless of time, at . CCT 60 minutes exclusive of separately billable procedures Cecilia Nixon MD October 08, 2016 21:20
[2016-10-08] MEDS: metroNIDAZOLE 500 MG INJ 100 ML IV SCH (23:05)
[2016-10-08] MEDS: PANTOPRAZOLE SODIUM 40 MG VIAL IV SCH (23:05)
[2016-10-09] VITALS (30 sets, daily range): BP systolic 118–141; BP diastolic 56–87; PULSE 57–101; RESP 11–34; TEMP 98.7–102.1; O2SAT 96–100
[2016-10-09] MEDS: AZTREONAM INJ 2,000 MG in SODIUM CHLORIDE 0.9% INJ 100 ML IV SCH ×4 (00:59→22:27)
[2016-10-09] MEDS: PROPOFOL 1000 MG/100 ML INJ 100 ML IV SCH ×3 (00:59→08:57)
[2016-10-09] MEDS: RESP: ALBUTEROL 2.5 MG/IPRATROPIUM 0.5 MG NEB (SCH) INH ×4 (03:42→20:27)
[2016-10-09] MEDS: CHLORHEXIDINE GLUCONATE 2 % 1 PACK (2 CLOTHS) TOP SCH ×2 (04:00→22:27)
--- NOTE | 2016-10-09 04:50 | PD.PROCEDR ---
Procedure Note Procedure Date: 10/08/16 at around 22:00 Procedure: Fiberoptic bronchoscopy with bronchoalveolar lavage, diagnostic and therapeutic Indication: Acute respiratory failure following aspiration Details of procedure: Informed consent was obtained from family. Phone consent was witnessed by ED RN and consent form is on the chart. The patient was laid supine with head mildly elevated.. The patient was preoxygenated with 100% FiO2 via endotracheal tube and sedated with fentanyl 100 mcg IV and propofol drip at 50 micrograms per KG per minute. The fiberoptic bronchoscope was advanced into the endotracheal tube and into the right lower lobe. There was evidence of mild aspiration injury in the right lower lobe bronchus. All right lower lobe subsegments were explored in detail and no foreign body was visualized. BAL was performed with 40 mL of NS instilled and there was 15 ML of mostly clear, slight particulate return into the Lukens trap that was sent for gram stain, culture, sensitivity. There was a very small amount of white mucus suctioned from the right upper lobe bronchus. The right middle lobe had no significant secretions or foreign body. The left lung was explored and there were no significant secretions and no foreign body. Patient tolerated the procedure well without apparent complication. Cecilia Nixon MD October 09, 2016 04:50
[2016-10-09] MEDS: D5-1/2 NS + KCL 20 MEQ INJ 1,000 ML IV SCH (05:08)
--- NOTE | 2016-10-09 05:54 | RADRPT ---
EXAM DATE/TIME: 10/09/2016 03:23 [facility] COMPARISON: CHEST SINGLE AP, October 08, 2016, 19:08. INDICATIONS : Shortness of breath, possible pulmonary disease. MEDICAL HISTORY : None. SURGICAL HISTORY : None. ENCOUNTER: Subsequent ACUITY: 2 days PAIN SCORE: Non-responsive. LOCATION: Bilateral chest FINDINGS: ET tube, and NG tube have not changed. There is improvement in the aeration of the lungs with residua l bibasilar parenchymal process remaining. CONCLUSION: Slight improvement in the aeration of the lungs. Katelynn Guerrero MD on October 09, 2016 at 5:51 Board Certified Radiologist. This report was verified electronically.
--- NOTE | 2016-10-09 06:02 | RADRPT ---
EXAM DATE/TIME: 10/09/2016 05:47 [place] COMPARISON: CT BRAIN W/O CONTRAST, November 20, 2015, 23:25. INDICATIONS : Found unresponsive; ETOH. RADIATION DOSE: 52.17 CTDIvol (mGy) MEDICAL HISTORY : Hepatitis C. Diabetes mellitus type 2. Cardiovascular disease SURGICAL HISTORY : back surgery ENCOUNTER: Initial ACUITY: 1 day PAIN SCALE: 0/10 LOCATION: cranial TECHNIQUE: Multiple contiguous axial images were obtained of the head. Using automated exposure control and adj ustment of the mA and/or kV according to patient size, radiation dose was kept as low as reasonably a chievable to obtain optimal diagnostic quality images. FINDINGS: There is no evidence for intracranial hemorrhage, mass effect, mass lesions, edema, or extra-axial fl uid collections. The visualized bony structures appear intact. The ventricles are normal size for t he patient's age. There are no signs of acute infarction for technique. CONCLUSION: Unremarkable study. Katelynn Guerrero MD on October 09, 2016 at 6:00 Board Certified Radiologist. This report was verified electronically.
[2016-10-09] MEDS: metroNIDAZOLE 500 MG INJ 100 ML IV SCH ×3 (06:21→22:26)
[2016-10-09 06:26] LABS: AUTOMATED NEUTROPHIL # 4.5 TH/MM3 (1.8-7.7); BASOPHIL % 0.5 % (0.0-2.0); EOSINOPHIL % 0.6 % (0.0-4.0); HEMATOCRIT 35.5 % (39.0-51.0); LYMPHOCYTE # 0.7 TH/MM3 (1.0-4.8); MEAN CELL VOLUME 96.8 FL (80.0-100.0); MEAN CORPUSCULAR HEMOGLOBIN 33.5 PG (27.0-34.0); MEAN CORPUSCULAR HGB CONC 34.6 % (32.0-36.0); NEUT % 73.9 % (16.0-70.0); PLATELET COUNT 42 TH/MM3 (150-450); RED BLOOD COUNT 3.67 MIL/MM3 (4.50-5.90); RED CELL DISTRIBUTION WIDTH 15.3 % (11.6-17.2); WHITE BLOOD COUNT 6.1 TH/MM3 (4.0-11.0)
[2016-10-09 06:45] LABS: ANION GAP 10 MEQ/L (5-15); AST (GOT) 73 U/L (15-37); BICARBONATE 25.5 MEQ/L (21.0-32.0); BLOOD UREA NITROGEN 9 MG/DL (7-18); CHLORIDE 108 MEQ/L (98-107); GLOMERULAR FILTRATION RATE 114 ML/MIN (>89); MAGNESIUM 1.6 MG/DL (1.5-2.5); POTASSIUM 3.9 MEQ/L (3.5-5.1); SODIUM (NA) 143 MEQ/L (136-145)
[2016-10-09 06:46] LABS: HEMO FLAGS AUTO DIFF
[2016-10-09 06:54] LABS: ALKALINE PHOSPHATASE 48 U/L (45-117); ALT (GPT) 54 U/L (12-78); TOTAL BILIRUBIN ADULT 0.7 MG/DL (0.2-1.0)
[2016-10-09 08:24] LABS: BANDS 16 % (0-6); PLATELET ESTIMATE SMEAR LOW (NORMAL); PLATELET MORPHOLOGY NORMAL (NORMAL); POLYS (SEG NEUTROPHILS) 66 % (16-70); SCAN/DIFF FINAL DIFF MANUAL; WBC DIFF SAMPLE 100
[2016-10-09] MEDS: PANTOPRAZOLE SODIUM 40 MG VIAL IV SCH (08:57)
[2016-10-09] MEDS: MULTIVITAMIN TAB OG-TUBE SCH (08:57)
[2016-10-09] MEDS: CHLORHEXIDINE 0.12% (ORAL KIT) 15 ML CUP MT SCH ×2 (08:58→19:58)
[2016-10-09] MEDS: SODIUM CHLORIDE 0.9% FLUSH 10 ML FLUSH SCH ×2 (08:59→19:58)
--- NOTE | 2016-10-09 09:08 | HHI.CCPN ---
Subjective Remarks/Hospital Course 61 yo WM with PMH of Hep C, polysubstance abuse (including heavy EtOH as well as IVDU) who presented to [facility] ED via [facility] after he was found sleeping on the sidewalk. He endorsed drinking all day, up to a pint of vodka. He stated he wished to have assistance with alcohol abuse so he was being held in the ED until clinically sober with the plan to refer to [facility] as an outpatient. He was eating some chicken and began to choke and had desaturations into the 70s.. Heimlich maneuver was performed without apparent result. He was placed on NR and sats remained in 80s with decreased breath sounds on the right. He was ultimately intubated by Dr. Wayne. No foreign body was noted in upper airway during laryngoscopy. Critical care medicine was consulted for admission. 10/09 Patient is sedated with Diprivan and intubated. Afebrile. T 102.1 at 4 am. Objective Vital Signs Date Time Temp Pulse Resp B/P Pulse Ox O2 Delivery O2 Flow Rate FiO2 10/09/16 08:00 99 40 10/09/16 06:00 76 10/09/16 04:00 102.1 34 139/87 10/08/16 21:21 Ventilator Result Diagram: 10/09/16 0414 10/09/16 0414 Other Results Laboratory Tests Test 10/08/16 10/08/16 10/08/16 10/08/16 16:35 19:33 19:47 21:35 White Blood Count 6.1 TH/MM3 Red Blood Count 3.72 MIL/MM3 Hemoglobin 12.2 GM/DL Hematocrit 35.6 % Mean Corpuscular Volume 95.8 FL Mean Corpuscular Hemoglobin 32.7 PG Mean Corpuscular Hemoglobin 34.1 % Concent Red Cell Distribution Width 15.2 % Platelet Count 47 TH/MM3 Mean Platelet Volume 7.2 FL Neutrophils (%) (Auto) 64.2 % Lymphocytes (%) (Auto) 21.3 % Monocytes (%) (Auto) 13.3 % Eosinophils (%) (Auto) 0.4 % Basophils (%) (Auto) 0.8 % Neutrophils # (Auto) 3.9 TH/MM3 Lymphocytes # (Auto) 1.3 TH/MM3 Monocytes # (Auto) 0.8 TH/MM3 Eosinophils # (Auto) 0.0 TH/MM3 Basophils # (Auto) 0.0 TH/MM3 CBC Comment AUTO DIFF Differential Comment AUTO DIFF CONFIRMED Platelet Estimate LOW Platelet Morphology Comment NORMAL Red Cell Morphology Comment NORMAL Sodium Level 145 MEQ/L Potassium Level 3.3 MEQ/L Chloride Level 111 MEQ/L Carbon Dioxide Level 25.9 MEQ/L Anion Gap 8 MEQ/L Blood Urea Nitrogen 9 MG/DL Creatinine 0.77 MG/DL Estimat Glomerular Filtration 103 ML/MIN Rate Random Glucose 86 MG/DL Calcium Level 7.8 MG/DL Magnesium Level 1.8 MG/DL Total Bilirubin 0.7 MG/DL Aspartate Amino Transf 62 U/L (AST/SGOT) Alanine Aminotransferase 58 U/L (ALT/SGPT) Alkaline Phosphatase 54 U/L Total Creatine Kinase 72 U/L Total Protein 6.8 GM/DL Albumin 3.4 GM/DL Acetaminophen Level LESS THAN 2.0 MCG/ML Ethyl Alcohol Level 326 MG/DL Phosphorus Level 3.1 MG/DL Blood Gas Puncture Site RT RADIAL Blood Gas Patient Temperature 98.6 Blood Gas HCO3 24 mmol/L Blood Gas Base Excess -0.2 mmol/L Blood Gas Oxygen Saturation 98 % Arterial Blood pH 7.37 Arterial Blood Partial 43 mmHg Pressure CO2 Arterial Blood Partial 292 mmHG Pressure O2 Arterial Blood Oxygen Content 18.2 Vol % Arterial Blood 1.1 % Carboxyhemoglobin Arterial Blood Methemoglobin 0.7 % Blood Gas Hemoglobin 12.7 G/DL Oxygen Delivery Device VENTILATOR Blood Gas Ventilator Setting AC/16/500/PEEP5 Blood Gas Inspired Oxygen 100 % Prothrombin Time 10.9 SEC Prothromb Time International 1.0 RATIO Ratio Activated Partial 27.6 SEC Thromboplast Time Salicylates Level LESS THAN 1.7 MG/DL Urine Opiates Screen NEG Urine Barbiturates Screen NEG Urine Amphetamines Screen NEG Urine Benzodiazepines Screen POS Urine Cocaine Screen NEG Urine Cannabinoids Screen NEG Nasal Screen MRSA (PCR) MRSA NOT DETECTED Test 10/09/16 04:14 White Blood Count 6.1 TH/MM3 Red Blood Count 3.67 MIL/MM3 Hemoglobin 12.3 GM/DL Hematocrit 35.5 % Mean Corpuscular Volume 96.8 FL Mean Corpuscular Hemoglobin 33.5 PG Mean Corpuscular Hemoglobin 34.6 % Concent Red Cell Distribution Width 15.3 % Platelet Count 42 TH/MM3 Mean Platelet Volume 8.1 FL Neutrophils (%) (Auto) 73.9 % Lymphocytes (%) (Auto) 11.0 % Monocytes (%) (Auto) 14.0 % Eosinophils (%) (Auto) 0.6 % Basophils (%) (Auto) 0.5 % Neutrophils # (Auto) 4.5 TH/MM3 Lymphocytes # (Auto) 0.7 TH/MM3 Monocytes # (Auto) 0.9 TH/MM3 Eosinophils # (Auto) 0.0 TH/MM3 Basophils # (Auto) 0.0 TH/MM3 CBC Comment AUTO DIFF Differential Total Cells 100 Counted Neutrophils % (Manual) 66 % Band Neutrophils % 16 % Lymphocytes % 12 % Monocytes % 6 % Neutrophils # (Manual) 5.0 TH/MM3 Differential Comment FINAL DIFF MANUAL Platelet Estimate LOW Platelet Morphology Comment NORMAL Sodium Level 143 MEQ/L Potassium Level 3.9 MEQ/L Chloride Level 108 MEQ/L Carbon Dioxide Level 25.5 MEQ/L Anion Gap 10 MEQ/L Blood Urea Nitrogen 9 MG/DL Creatinine 0.71 MG/DL Estimat Glomerular Filtration 114 ML/MIN Rate Random Glucose 103 MG/DL Calcium Level 8.0 MG/DL Phosphorus Level 1.7 MG/DL Magnesium Level 1.6 MG/DL Total Bilirubin 0.7 MG/DL Aspartate Amino Transf 73 U/L (AST/SGOT) Alanine Aminotransferase 54 U/L (ALT/SGPT) Alkaline Phosphatase 48 U/L Total Protein 6.6 GM/DL Albumin 3.3 GM/DL Imaging Last Impressions Chest X-Ray 10/09/16 0600 Signed Impressions: Service Date/Time: Sunday, October 09, 2016 03:23 - CONCLUSION: Slight improvement in the aeration of the lungs. Katelynn Guerrero MD Head CT 10/08/16 0000 Signed Impressions: Service Date/Time: Sunday, October 09, 2016 05:47 - CONCLUSION: Unremarkable study. Katelynn Guerrero MD Objective Remarks Drips: Propofol 10 g per KG per minute 0.9 NaCl with 20 mEq of KCl per liter at 100 mL per hour GENERAL: Disheveled male who is orotracheally intubated, sedated SKIN: Warm and dry. There are dark calluses on bilateral MTP (~3 cm on the right , 2 cm on the left) . HEAD: Atraumatic. Normocephalic. EYES: Pupils equal and round, 2mm and reactive bilaterally. No scleral icterus. Mild bilateral conjunctival injection. ENT: No nasal bleeding or discharge. Mucous membranes dry. Poor dentition. NECK: Trachea midline. No JVD. CARDIOVASCULAR: Regular rate and rhythm. No murmurs rubs or gallops. RESPIRATORY: Breathing temporally on mechanical ventilation without accessory muscle use. Clear to auscultation, diminished right base. GASTROINTESTINAL: Abdomen soft, non-tender, nondistended. Bowel sounds present. : Slater in place with yellow urine output. MUSCULOSKELETAL: Extremities without clubbing, cyanosis, or edema. No obvious deformities. NEUROLOGICAL: Eyes open to noxious stimuli. No obvious cranial nerve deficits. Unable to assess speech. Withdraws with all extremities. No clonus. No response to Babinski A/P Assessment and Plan NEURO: EtOH dependence Acute alcohol intoxication Polysubstance abuse Acute encephalopathy Thiamine, multivitamin Ativan as needed for alcohol withdrawal symptoms Propofol for sedation. Daily sedation vacation RASS target -2 salicylate/APAP negative. UDS positive for benzos but performed after he had received versed in the ED. RESP: Aspiration following choking event Acute respiratory failure Tobacco abuse Continue with vent support keep sat >92% Bronchodilators, ICU vent bundle. Start SBT daily as raina s/p Bronchoscopy last night. CV: Monitor HR and BP keep MAP>65mmhg GI: OG tube to low intermittent wall suction. We'll initiate enteral feeds today if not able to extubate. FEN/RENAL: Slater in place. Monitor intake and output. Monitor electrolytes and replace as indicated per ICU electrolyte replacement protocol. Change IVF to D5NS@75ml/hr ID: History of hepatitis C and IV drug use PCN allergy (sister states he is allergic, unknown severity) Continue with abx (Aztreonam 2 g IV every 8 hours, Flagyl 500 mg IV every 8 hours)monitor for signs of infections ( Fever, WBC). Follow up on cx/ BAL results from last night. HEME: Chronic anemia Chronic thrombocytopenia Likely secondary to EtOH abuse Monitor CBC ENDO: Euglycemic SSI if needed for glycemic control PROPH: SCDs for DVT prophylaxis. Hold pharmacologic DVT prophylaxis due to severe thrombocytopenia. Protonix 40 mg IV daily for stress ulcer prophylaxis. ACCESS: Peripheral IV providing adequate access at this time. Addendum: Patient is extubated on 3L oxygen with good sats. Awake and alert. Will sign off and transfer care to [facility] Level 3 Natalia Urias MD October 09, 2016 09:08
[2016-10-09] MEDS: ACETAMINOPHEN 325 MG TAB PO PRN (09:58)
[2016-10-09] MEDS: DEXT 5%-NACL 0.9% 1000 ML INJ 1,000 ML IV SCH ×2 (09:58→22:26)
[2016-10-09] MEDS: THIAMINE INJ 100 MG in SODIUM CHLORIDE 0.9% INJ 100 ML IV SCH (09:58)
[2016-10-09 11:12] LABS: BACTERIA, URINE OCC /hpf; BLOOD, URINE TRACE (NEG); COMMENT (UR) CATH-CULTURE IND; CULTURE IF INDICATED CATH CULTURE IND; GLUCOSE,URINE NEG (NEG); KETONE, URINE NEG (NEG); MUCUS URINE FEW /lpf (OCC); NITRITE,URINE NEG (NEG); PH, URINE 6.5 (5.0-8.5); URINE COLOR YELLOW (YELLW/STRAW)
[2016-10-09 11:38] LABS: BLOOD GAS BASE EXCESS 0.7 mmol/L (-2-2); BLOOD GAS CARBOXYHEMOGLOBIN 1.4 % (0-4); BLOOD GAS HCO3 24 mmol/L (22-26); BLOOD GAS METHEMOGLOBIN 1.4 % (0-2); BLOOD GAS O2 HGB SATURATION 97 % (90-100); BLOOD GAS OXYGEN CONTENT 16.5 Vol % (12.0-20.0); BLOOD GAS PCO2 35 mmHg (38-42); BLOOD GAS PO2 192 mmHg (61-120); BLOOD GAS TOTAL HGB 11.8 G/DL (12.0-16.0); CRITICAL VALUE NO; OXYGEN DEVICE VENTILATOR; TEMP CORR TO 98.6
[2016-10-09 11:39] LABS: DRAW SITE RT RADIAL; FIO2 40 %; NUMBER OF ARTERIAL PUNCTURES 1; STAT NO; ULNAR PULSE PRESENT; VENT SETTINGS CPAP 5/10PS
--- NOTE | 2016-10-09 13:12 | EKG ---
Date Performed: 10/08/2016 Time Performed: 16:28:53 PTAGE: 61 years EKG: Sinus rhythm NORMAL ECG Compared to prior tracing no significant change PREVIOUS TRACING : 09/22/2016 04.04 DOCTOR: Ted Malhotra Interpretating Date/Time 10/09/2016 13:10:39
[2016-10-09] MEDS ORDERED: chlordiazePOXIDE 25 MG CAP PO ONE (20:00)
[2016-10-09] MEDS ORDERED: LORazepam 2 MG/ML VIAL IV ONE (20:00)
[2016-10-10] VITALS (13 sets, daily range): BP systolic 128–156; BP diastolic 65–76; PULSE 41–88; RESP 18–26; TEMP 97.8–98.8; O2SAT 92–99
[2016-10-10] MEDS: ONDANSETRON HCL 4 MG/2 ML VIAL IV PRN ×2 (00:18→22:13)
[2016-10-10] MEDS: ACETAMINOPHEN 325 MG TAB PO PRN ×3 (00:18→22:13)
[2016-10-10] MEDS: RESP: ALBUTEROL 2.5 MG/IPRATROPIUM 0.5 MG NEB (SCH) INH ×4 (02:44→20:36)
[2016-10-10 04:48] LABS: BASOPHIL % 0.5 % (0.0-2.0); EOSINOPHIL # 0.1 TH/MM3 (0-0.4); EOSINOPHIL % 1.5 % (0.0-4.0); HEMATOCRIT 35.4 % (39.0-51.0); LYMPH % 12.9 % (9.0-44.0); LYMPHOCYTE # 0.7 TH/MM3 (1.0-4.8); MEAN CELL VOLUME 95.8 FL (80.0-100.0); MEAN CORPUSCULAR HGB CONC 34.4 % (32.0-36.0); MONO % 15.3 % (0.0-8.0); NEUT % 69.8 % (16.0-70.0); PLATELET COUNT 47 TH/MM3 (150-450); WHITE BLOOD COUNT 5.8 TH/MM3 (4.0-11.0)
[2016-10-10 04:52] LABS: HEMO FLAGS AUTO DIFF
[2016-10-10 04:56] LABS: ALKALINE PHOSPHATASE 44 U/L (45-117); ALT (GPT) 44 U/L (12-78); ANION GAP 9 MEQ/L (5-15); AST (GOT) 44 U/L (15-37); BICARBONATE 26.6 MEQ/L (21.0-32.0); BLOOD UREA NITROGEN 9 MG/DL (7-18); CHLORIDE 104 MEQ/L (98-107); GLOMERULAR FILTRATION RATE 105 ML/MIN (>89); MAGNESIUM 1.7 MG/DL (1.5-2.5); POTASSIUM 3.3 MEQ/L (3.5-5.1); SODIUM (NA) 140 MEQ/L (136-145); TOTAL BILIRUBIN ADULT 1.2 MG/DL (0.2-1.0)
[2016-10-10] MEDS: metroNIDAZOLE 500 MG INJ 100 ML IV SCH ×3 (05:17→22:14)
[2016-10-10 05:42] LABS: PLATELET ESTIMATE SMEAR LOW (NORMAL); PLATELET MORPHOLOGY NORMAL (NORMAL); SCAN/DIFF AUTO DIFF CONFIRMED
[2016-10-10] MEDS: AZTREONAM INJ 2,000 MG in SODIUM CHLORIDE 0.9% INJ 100 ML IV SCH ×3 (07:39→22:14)
[2016-10-10] MEDS: PANTOPRAZOLE SODIUM 40 MG VIAL IV SCH (07:40)
[2016-10-10] MEDS: MULTIVITAMIN TAB OG-TUBE SCH (07:41)
[2016-10-10] MEDS: THIAMINE INJ 100 MG in SODIUM CHLORIDE 0.9% INJ 100 ML IV SCH (07:41)
[2016-10-10] MEDS: LORazepam 2 MG/ML VIAL IV PRN ×2 (07:41→12:33)
[2016-10-10] MEDS: SODIUM CHLORIDE 0.9% FLUSH 10 ML FLUSH SCH ×2 (07:41→20:01)
[2016-10-10] MEDS: CHLORHEXIDINE 0.12% (ORAL KIT) 15 ML CUP MT SCH ×2 (07:41→20:00)
[2016-10-10] MEDS ORDERED: chlordiazePOXIDE 25 MG CAP PO SCH (09:00)
[2016-10-10] MEDS ORDERED: LORazepam 2 MG TAB PO PRN (12:30)
[2016-10-10] MEDS ORDERED: FLUMAZENIL 0.5 MG/5 ML VIAL IV PUSH PRN (12:30)
[2016-10-10] MEDS ORDERED: LORazepam 1 MG TAB PO PRN (12:30)
[2016-10-10] MEDS ORDERED: LORazepam 2 MG/ML VIAL IV PUSH PRN ×3 (12:30)
[2016-10-10] MEDS: DEXT 5%-NACL 0.9% 1000 ML INJ 1,000 ML IV SCH (12:33)
--- NOTE | 2016-10-10 12:35 | HHI.PR ---
Subjective Remarks Patient seen in follow-up for aspiration pneumonia versus aspiration pneumonitis and alcohol withdrawal. Discussed with RN. Patient extubated yesterday. He is doing well on 3 L nasal cannula. He denies overt shortness of breath. He is complaining of alcohol withdrawal symptoms and an overall feeling of severe anxiety. He states that he wants to quit drinking alcohol and is open to rehabilitation. Objective Vitals Vital Signs Date Time Temp Pulse Resp B/P Pulse Ox O2 Delivery O2 Flow Rate FiO2 10/10/16 10:00 80 10/10/16 09:16 93 10/10/16 08:00 77 10/10/16 08:00 99 10/10/16 08:00 98.5 51 20 133/76 99 10/10/16 06:00 42 10/10/16 04:05 20 10/10/16 04:00 41 10/10/16 04:00 44 10/10/16 04:00 Nasal Cannula 3.00 98 10/10/16 04:00 98.6 41 23 128/65 98 10/10/16 02:00 67 10/10/16 00:00 67 10/10/16 00:00 98.8 67 26 132/74 92 10/10/16 00:00 Room Air 92 10/09/16 22:00 63 10/09/16 20:37 96 10/09/16 20:00 67 10/09/16 20:00 Room Air 96 10/09/16 20:00 98.9 67 34 141/71 96 10/09/16 18:00 101 10/09/16 16:00 99 Nasal Cannula 3.00 10/09/16 16:00 99.7 63 18 130/68 99 10/09/16 16:00 67 10/09/16 14:00 63 10/09/16 13:30 57 25 139/70 99 10/09/16 13:00 62 25 124/69 98 I/O 10/09/16 10/09/16 10/09/16 10/10/16 10/10/16 10/10/16 06:59 14:59 22:59 06:59 14:59 22:59 Intake Total 1604 ml 1038 ml 521 ml 610 ml Output Total 1500 ml 500 ml 630 ml Balance 104 ml 538 ml 521 ml -20 ml Intake Oral 240 ml IV Total 1604 ml 798 ml 521 ml 610 ml Output Urine Total 1500 ml 500 ml 630 ml Result Diagram: 10/10/16 0322 10/10/16 0322 Imaging Last Impressions Chest X-Ray 10/09/16 0600 Signed Impressions: Service Date/Time: Sunday, October 09, 2016 03:23 - CONCLUSION: Slight improvement in the aeration of the lungs. Katelynn Guerrero MD Head CT 10/08/16 0000 Signed Impressions: Service Date/Time: Sunday, October 09, 2016 05:47 - CONCLUSION: Unremarkable study. Katelynn Guerrero MD Objective Remarks GENERAL: Patient appearing older than stated age. No acute distress. CARDIOVASCULAR: Normal rate and regular rhythm without murmurs, gallops, or rubs. RESPIRATORY: Good respiratory efforts. Breath sounds equal and clear to auscultation bilaterally. GASTROINTESTINAL: Abdomen soft, non-tender, non-distended. Normal active bowel sounds MUSCULOSKELETAL: Extremities without cyanosis, or edema. NEURO: Alert & Oriented x4 to person, place, time, situation. Moves all ext x4. He is tremulous. PSYCH: Appropriate mood and affect. Procedures Status post intubation and unremarkable bronchoscopy. A/P Assessment and Plan 61-year-old male with history of polysubstance abuse who was found on the sidewalk. The patient was in the emergency room and had an episode of aspiration in the emergency room. He was intubated. He has since been extubated and transferred to the hospitalist service for continued care. Respiratory failure secondary to aspiration: Pneumonia versus pneumonitis. - Patient is currently improving. Status post extubation. Unremarkable bronchoscopy. Bronchial washing so far negative. Continue antibiotics for complete 48 hours and reassess the need to discontinue versus transitioning to oral antibiotics. Currently on aztreonam and Flagyl Breathing treatments Supplemental oxygen Alcohol dependence/withdrawal. Polysubstance abuse: Place on CIWA protocol Thiamine, multivitamin Slater in place. Monitor intake and output. Monitor electrolytes and replace as indicated. Change IVF to D5NS@75ml/hr History of hepatitis C and IV drug use - Patient advised he will need to follow-up outpatient for treatment of hepatitis C. Chronic anemia Chronic thrombocytopenia Likely secondary to EtOH abuse Continue to monitor PROPH: SCDs for DVT prophylaxis. Hold pharmacologic DVT prophylaxis due to severe thrombocytopenia. Protonix 40 mg IV daily for stress ulcer prophylaxis. [facility] MD October 10, 2016 12:34
[2016-10-10] MEDS: LORazepam 2 MG/ML VIAL IV PUSH PRN ×3 (14:27→20:01)
[2016-10-10] MEDS ORDERED: MELATONIN 5 MG TAB PO ONE (22:45)
[2016-10-10] MEDS: CALCIUM CARBONATE 500 MG CHEWABLE TAB CHEW PRN (22:53)
[2016-10-11] VITALS (14 sets, daily range): BP systolic 110–169; BP diastolic 70–95; PULSE 45–67; RESP 16–30; TEMP 96.2–98.4; O2SAT 88–99
[2016-10-11] MEDS: DEXT 5%-NACL 0.9% 1000 ML INJ 1,000 ML IV SCH (01:15)
[2016-10-11] MEDS: CHLORHEXIDINE GLUCONATE 2 % 1 PACK (2 CLOTHS) TOP SCH (01:27)
[2016-10-11] MEDS: RESP: ALBUTEROL 2.5 MG/IPRATROPIUM 0.5 MG NEB (SCH) INH ×4 (03:25→20:16)
[2016-10-11] MEDS: CALCIUM CARBONATE 500 MG CHEWABLE TAB CHEW PRN (04:59)
[2016-10-11] MEDS: LORazepam 2 MG/ML VIAL IV PUSH PRN (04:59)
[2016-10-11] MEDS: metroNIDAZOLE 500 MG INJ 100 ML IV SCH (04:59)
[2016-10-11] MEDS: ACETAMINOPHEN 325 MG TAB PO PRN (04:59)
[2016-10-11] MEDS: ONDANSETRON HCL 4 MG/2 ML VIAL IV PRN (05:00)
[2016-10-11] MEDS: PANTOPRAZOLE SODIUM 40 MG VIAL IV SCH (07:59)
[2016-10-11] MEDS: AZTREONAM INJ 2,000 MG in SODIUM CHLORIDE 0.9% INJ 100 ML IV SCH (07:59)
[2016-10-11] MEDS: MULTIVITAMIN TAB OG-TUBE SCH (07:59)
[2016-10-11] MEDS: THIAMINE INJ 100 MG in SODIUM CHLORIDE 0.9% INJ 100 ML IV SCH (07:59)
[2016-10-11] MEDS: SODIUM CHLORIDE 0.9% FLUSH 10 ML FLUSH SCH ×2 (08:00→19:35)
[2016-10-11] MEDS: CHLORHEXIDINE 0.12% (ORAL KIT) 15 ML CUP MT SCH ×2 (08:00→20:00)
--- NOTE | 2016-10-11 09:35 | HHI.PR ---
Subjective Remarks Patient seen in follow-up for alcohol withdrawal, aspiration He reports he is feeling better today. Discussed with RN. He is still requiring Ativan frequently for alcohol withdrawals. He denies shortness of breath or chest pain. Doing well on room air. Objective Vitals Vital Signs Date Time Temp Pulse Resp B/P Pulse Ox O2 Delivery O2 Flow Rate FiO2 10/11/16 09:29 97 21 10/11/16 06:04 20 10/11/16 06:00 45 10/11/16 04:00 46 10/11/16 04:00 98.4 46 25 161/79 93 10/11/16 02:00 50 10/11/16 00:00 98.0 50 24 145/73 94 10/11/16 00:00 50 10/10/16 22:00 51 10/10/16 20:00 61 10/10/16 20:00 97.8 61 23 156/74 97 10/10/16 18:00 71 10/10/16 16:00 98.5 88 20 141/72 98 10/10/16 16:00 88 10/10/16 14:00 69 10/10/16 12:00 98.3 63 18 144/73 99 10/10/16 12:00 64 10/10/16 10:00 80 I/O 10/10/16 10/10/16 10/10/16 10/11/16 10/11/16 10/11/16 07:00 15:00 23:00 07:00 15:00 23:00 Intake Total 610 ml 1320 ml 638 ml 536 ml Output Total 630 ml 800 ml 600 ml 1300 ml Balance -20 ml 520 ml 38 ml -764 ml Intake Oral 720 ml IV Total 610 ml 600 ml 638 ml 536 ml Output Urine Total 630 ml 800 ml 600 ml 1300 ml Result Diagram: 10/10/16 0322 10/10/16 0322 Objective Remarks GENERAL: Patient appearing older than stated age. No acute distress. CARDIOVASCULAR: Normal rate and regular rhythm without murmurs, gallops, or rubs. RESPIRATORY: Good respiratory efforts. Breath sounds equal and clear to auscultation bilaterally. GASTROINTESTINAL: Abdomen soft, non-tender, non-distended. Normal active bowel sounds MUSCULOSKELETAL: Extremities without cyanosis, or edema. NEURO: Alert & Oriented x4 to person, place, time, situation. Moves all ext x4. He is less tremulous. PSYCH: Appropriate mood and affect. Procedures Status post intubation and unremarkable bronchoscopy. A/P Assessment and Plan 61-year-old male with history of polysubstance abuse who was found on the sidewalk. The patient was in the emergency room and had an episode of aspiration in the emergency room. He was intubated. He has since been extubated and transferred to the hospitalist service for continued care. Respiratory failure secondary to aspiration: Pneumonia versus pneumonitis. - Patient is currently doing well. Status post extubation. Unremarkable bronchoscopy. Bronchial washing so far negative. He receive aztreonam and Flagyl for about 48 hours. We'll discontinue antibiotics as this time, infection appear to be less likely Breathing treatments as needed Supplemental oxygen as needed Alcohol dependence/withdrawal. Polysubstance abuse: Patient has been on CIWA protocol. Will transition to oral Ativan 2 mg every 4 hours as needed Thiamine, multivitamin Discontinue IV fluid. History of hepatitis C and IV drug use - Patient advised he will need to follow-up outpatient for treatment of hepatitis C. Chronic anemia Chronic thrombocytopenia, stable Likely secondary to EtOH abuse Continue to monitor PROPH: SCDs for DVT prophylaxis. Hold pharmacologic DVT prophylaxis due to severe thrombocytopenia. Protonix 40 mg, changed to oral. Discharge Planning Transfer to floor whenever a bed is available. Will transition to oral medications today. PT consult. Consult case management to assist with DC. Kwasi Guardado MD October 11, 2016 09:35
[2016-10-11] MEDS: LORazepam 2 MG TAB PO PRN ×3 (13:26→22:04)
[2016-10-12] VITALS: BP 142/74; PULSE 49; RESP 18; TEMP 97.7; O2SAT 96
[2016-10-12] MEDS: LORazepam 2 MG TAB PO PRN ×2 (03:00→07:31)
[2016-10-12 04:00] VITALS: BP 128/73; PULSE 63; RESP 16; TEMP 96.6; O2SAT 96
[2016-10-12] MEDS: CHLORHEXIDINE GLUCONATE 2 % 1 PACK (2 CLOTHS) TOP SCH (04:00)
[2016-10-12] MEDS: RESP: ALBUTEROL 2.5 MG/IPRATROPIUM 0.5 MG NEB (SCH) INH ×2 (04:00→08:30)
[2016-10-12] MEDS ORDERED: LORazepam 2 MG/ML VIAL IV PUSH ONE (06:00)
[2016-10-12] MEDS: CHLORHEXIDINE 0.12% (ORAL KIT) 15 ML CUP MT SCH (08:00)
[2016-10-12 08:22] LABS: BICARBONATE 26.6 MEQ/L (21.0-32.0); POTASSIUM 3.6 MEQ/L (3.5-5.1)
[2016-10-12 08:40] VITALS: BP 155/74; PULSE 50; RESP 16; TEMP 96.9; O2SAT 96
[2016-10-12] MEDS: THIAMINE INJ 100 MG in SODIUM CHLORIDE 0.9% INJ 100 ML IV SCH (09:00)
[2016-10-12] MEDS ORDERED: PANTOPRAZOLE SOD 40 MG DELAYED RELEASE TAB PO SCH (09:00)
[2016-10-12] MEDS: SODIUM CHLORIDE 0.9% FLUSH 10 ML FLUSH SCH (09:00)
[2016-10-12] MEDS ORDERED: PROT40TA PO (09:19)
--- NOTE | 2016-10-12 09:19 | HHI.DCPOC ---
Discharge Care Plan Diagnosis: (1) Alcohol withdrawal (2) Acute respiratory failure (3) Alcohol abuse (4) Alcohol abuse with intoxication (5) Substance induced mood disorder Goals to Promote Your Health * To prevent worsening of your condition and complications * To maintain your health at the optimal level Directions to Meet Your Goals Take your medications as prescribed Follow your dietary instruction Follow activity as directed Keep your appointments as scheduled Take your immunizations and boosters as scheduled If your symptoms worsen call your PCP, if no PCP go to Urgent Care Center or Emergency Room Smoking is Dangerous to Your Health. Avoid second hand smoke Call the 24-hour hour crisis hotline for domestic abuse at Kwasi Guardado MD October 12, 2016 09:19
--- NOTE | 2016-10-12 09:26 | HHI.DS ---
Discharge Summary Admission Date October 08, 2016 at 19:09 Discharge Date: October 12, 2016 Admitting Diagnosis Respiratory failure secondary to aspiration (1) Alcohol dependence with acute alcoholic intoxication ICD Code: F10.229 (2) Aspiration into airway ICD Code: T17.908A (3) Substance induced mood disorder ICD Code: F19.94 (4) Hepatitis C virus ICD Code: B19.20 (5) Pancytopenia ICD Code: D61.818 (6) Acute respiratory failure ICD Code: J96.00 Procedures Status post intubation and unremarkable bronchoscopy. Brief History - From Admission History of present illness from the admitting physician. 61 yo WM with PMH of Hep C, polysubstance abuse (including heavy EtOH as well as IVDU) who presented to [facility] ED via [facility] after he was found sleeping on the sidewalk. He endorsed drinking all day, up to a pint of vodka. He stated he wished to have assistance with alcohol abuse so he was being held in the ED until clinically sober with the plan to refer to [facility] as an outpatient. He was eating some chicken and began to choke and had desaturations into the 70s.. Heimlich maneuver was performed without apparent result. He was placed on NR and sats remained in 80s with decreased breath sounds on the right. He was ultimately intubated by Dr. Wayne. No foreign body was noted in upper airway during laryngoscopy. Critical care medicine was consulted for admission. CBC/BMP: 10/10/16 0322 10/12/16 0641 Significant Findings Laboratory Tests Test 10/09/16 10/09/16 10/10/16 10:00 11:30 03:22 Urine Occult Blood TRACE (NEG) Urine Leukocyte Esterase MOD (NEG) Urine RBC 21 /hpf (0-3) Urine WBC 33 /hpf (0-5) Urine Bacteria OCC /hpf (NONE) Urine Mucus FEW /lpf (OCC) Arterial Blood pH 7.46 (7.380-7.420) Arterial Blood Partial 35 mmHg (38-42) Pressure CO2 Arterial Blood Partial 192 mmHg Pressure O2 (61-120) Blood Gas Hemoglobin 11.8 G/DL (12.0-16.0) Red Blood Count 3.70 MIL/MM3 (4.50-5.90) Hemoglobin 12.2 GM/DL (13.0-17.0) Hematocrit 35.4 % (39.0-51.0) Platelet Count 47 TH/MM3 (150-450) Monocytes (%) (Auto) 15.3 % (0.0-8.0) Lymphocytes # (Auto) 0.7 TH/MM3 (1.0-4.8) Platelet Estimate LOW (NORMAL) Potassium Level 3.3 MEQ/L (3.5-5.1) Random Glucose 109 MG/DL (74-106) Calcium Level 8.0 MG/DL (8.5-10.1) Phosphorus Level 2.4 MG/DL (2.5-4.9) Total Bilirubin 1.2 MG/DL (0.2-1.0) Aspartate Amino Transf 44 U/L (15-37) (AST/SGOT) Alkaline Phosphatase 44 U/L (45-117) Total Protein 6.3 GM/DL (6.4-8.2) Albumin 3.0 GM/DL (3.4-5.0) Imaging Last Impressions Chest X-Ray 10/09/16 0600 Signed Impressions: Service Date/Time: Sunday, October 09, 2016 03:23 - CONCLUSION: Slight improvement in the aeration of the lungs. Katelynn Guerrero MD Head CT 10/08/16 0000 Signed Impressions: Service Date/Time: Sunday, October 09, 2016 05:47 - CONCLUSION: Unremarkable study. Katelynn Guerrero MD PE at Discharge GENERAL: Patient appearing older than stated age. No acute distress. CARDIOVASCULAR: Normal rate and regular rhythm without murmurs, gallops, or rubs. RESPIRATORY: Good respiratory efforts. Breath sounds equal and clear to auscultation bilaterally. GASTROINTESTINAL: Abdomen soft, non-tender, non-distended. Normal active bowel sounds MUSCULOSKELETAL: Extremities without cyanosis, or edema. NEURO: Alert & Oriented x4 to person, place, time, situation. Moves all ext x4. He is less tremulous. PSYCH: Appropriate mood and affect. Pt update on day of discharge Patient is dressed and states he is ready to go home. He adamantly refused to go to stool more treatment. He states he has been in rehabilitation multiple times. He states he doesn't know if he will not go back to drinking. He was extensively counseled about the detrimental effects of alcohol on his health. Hospital Course 61-year-old male with history of polysubstance abuse who was found on the sidewalk. The patient was in the emergency room and had an episode of aspiration in the emergency room. He was intubated. He has since been extubated and transferred to the hospitalist service for continued care. Evaluation and treatment course detailed below: Respiratory failure secondary to aspiration: Pneumonia versus pneumonitis. - Status post extubation. Unremarkable bronchoscopy. He receive aztreonam and Flagyl for about 48 hours. Antibiotics were discontinued and the patient remained stable and comfortable on room air. Alcohol dependence/withdrawal. Polysubstance abuse: Patient has been on CIWA protocol. He was transitioned to oral Ativan 2 mg every 4 hours as needed. Unfortunately the patient did not convey her desire to stop drinking on discharge. He adamantly refused to Anival Fiordaliza which was his previous plan. - The patient was extensively counseled on the detrimental effects of alcohol and his health. He is aware this may ultimately lead to worsening condition and . History of hepatitis C and IV drug use - Patient advised to follow-up outpatient for treatment of hepatitis C. Chronic anemia Chronic thrombocytopenia, likely secondary to marrow suppression from chronic alcohol abuse. Patient counseled as noted above. Pt Condition on Discharge: Good Discharge Disposition: Discharge Home Discharge Time: <= 30 minutes Discharge Instructions DIET: Follow Instructions for: As Tolerated, No Restrictions Activities you can perform: Regular-No Restrictions Other Activity Instructions: DO NOT DRINK alcohol. If you continue to drink, it will kill you. New Medications: Pantoprazole (Protonix) 40 Mg Tab 40 MG PO DAILY #30 TAB Kwasi Guardado MD October 12, 2016 09:26
[2016-10-12] MEDS: MULTIVITAMIN TAB OG-TUBE SCH (10:29)
== END 2016-10-12 11:08 | disposition home or self-care (01) | DRG 166 ==
LOC: NEPC 16:02 → NEDA 19:09 → HIMW 21:25 → HOCB 10-11 13:19
PROVIDERS: ADMIT Family Medicine; ATTEND Family Medicine
PROC: 0BH17EZ Insertion of Endotracheal Airway into Trachea, Via Natural or Artificial Opening (ICD-10-PCS; principal; 2016-10-08)
PROC: 0B9F8ZX Drainage of Right Lower Lung Lobe, Via Natural or Artificial Opening Endoscopic, Diagnostic (ICD-10-PCS; 2016-10-08)
PROC: 5A1935Z Respiratory Ventilation, Less than 24 Consecutive Hours (ICD-10-PCS; 2016-10-08)
DX: J96.00 Acute respiratory failure, unspecified whether with hypoxia or hypercapnia (principal); J69.0 Pneumonitis due to inhalation of food and vomit; G93.40 Encephalopathy, unspecified; F10.239 Alcohol dependence with withdrawal, unspecified; F10.229 Alcohol dependence with intoxication, unspecified; Y90.8 Blood alcohol level of 240 mg/100 ml or more; F41.9 Anxiety disorder, unspecified; F32.9 Major depressive disorder, single episode, unspecified; B19.20 Unspecified viral hepatitis C without hepatic coma; D69.59 Other secondary thrombocytopenia; D64.9 Anemia, unspecified; E87.6 Hypokalemia; Z87.891 Personal history of nicotine dependence
CPT/HCPCS: 31500; 31624; 36600; 70450; 71010; 80048; 80053; 80307; 81001; 82550; 82805; 83735; 84100; 85007; 85025; 85027; 85610; 85730; 87040; 87070; 87086; 87205; 87641; 93005; 94002; 94003; 94640; 94664; 96361; 96365; 96375; C9113; J0330; J2060; J2250; J2405; J3010; J3411; J3480; J7030; J7040; J7042

== ENCOUNTER 2016-10-17 16:44 | Emergency (ER) | payer OTHER ==
[~2016-10-17] VITALS: Ht 182.9 cm; Wt 80.0 kg
[~2016-10-17 16:44] MED LIST: PROT40TA PO
[2016-10-17 16:46] VITALS: BP 123/67; PULSE 81; RESP 16; TEMP 98.6; O2SAT 94
[2016-10-17 17:06] LABS: AUTOMATED NEUTROPHIL # 6.4 TH/MM3 (1.8-7.7); BASOPHIL # 0.1 TH/MM3 (0-0.2); BASOPHIL % 1.3 % (0.0-2.0); EOSINOPHIL # 0.1 TH/MM3 (0-0.4); EOSINOPHIL % 0.7 % (0.0-4.0); HEMATOCRIT 41.5 % (39.0-51.0); LYMPH % 22.3 % (9.0-44.0); LYMPHOCYTE # 2.2 TH/MM3 (1.0-4.8); MEAN CELL VOLUME 96.7 FL (80.0-100.0); MEAN CORPUSCULAR HGB CONC 34.2 % (32.0-36.0); MONO % 11.5 % (0.0-8.0); NEUT % 64.2 % (16.0-70.0); PLATELET COUNT 308 TH/MM3 (150-450); RED BLOOD COUNT 4.29 MIL/MM3 (4.50-5.90); WHITE BLOOD COUNT 9.9 TH/MM3 (4.0-11.0)
[2016-10-17 17:11] LABS: HEMO FLAGS AUTO DIFF
[2016-10-17 17:33] LABS: ALKALINE PHOSPHATASE 65 U/L (45-117); TOTAL BILIRUBIN ADULT 0.4 MG/DL (0.2-1.0)
[2016-10-17 17:38] LABS: ALT (GPT) 49 U/L (12-78); ANION GAP 11 MEQ/L (5-15); AST (GOT) 53 U/L (15-37); BICARBONATE 28.5 MEQ/L (21.0-32.0); BLOOD UREA NITROGEN 12 MG/DL (7-18); CHLORIDE 104 MEQ/L (98-107); GLOMERULAR FILTRATION RATE 79 ML/MIN (>89); POTASSIUM 4.2 MEQ/L (3.5-5.1); SODIUM (NA) 143 MEQ/L (136-145)
[2016-10-17 17:39] LABS: BANDS 15 % (0-6); MYELOCYTES 1 % (0-0); PLATELET ESTIMATE SMEAR NORMAL (NORMAL); PLATELET MORPHOLOGY NORMAL (NORMAL); POLYS (SEG NEUTROPHILS) 65 % (16-70); SCAN/DIFF FINAL DIFF MANUAL; WBC DIFF SAMPLE 100
--- NOTE | 2016-10-17 20:22 | PD ---
HPI Chief Complaint: Alcohol/Drug Intoxication Time Seen by Provider: 20:20 Travel History International Travel<30 days: No Contact w/Intl Traveler<30days: No Traveled to known affect area: No History of Present Illness HPI Patient comes in under police escort under a Servin's act for alcohol intoxication. Patient denies any complaints or concerns. States he just drank too much today. Denies any chest pain, shortness of breath, abdominal pain, nausea, vomiting, fevers, or pain anywhere. PFSH Past Medical History Blood Disorders: No Anxiety: Yes Depression: Yes Heart Rhythm Problems: No Cardiovascular Problems: Yes (ANGINA ) High Cholesterol: No Chest Pain: No Congestive Heart Failure: No Diminished Hearing: No Endocrine: No Gastrointestinal Disorders: No Genitourinary: No Hepatitis: Yes (HEP C) Hypertension: No Immune Disorder: No Implanted Vascular Access Dvce: No Musculoskeletal: No Neurologic: No Psychiatric: Yes Reproductive: No Respiratory: No Immunizations Current: Yes Seizures: Yes (DUE TO ALCOHOL WITHDRAWL) Past Surgical History Oral Surgery: Yes (TEETH EXTRACTIONS) Other Surgery: Yes (UNKNOWN BACK SURGERY) Social History Alcohol Use: Yes (ALCOHOLISM) Tobacco Use: No (QUIT) Substance Use: Yes Allergies-Medications (Allergen,Severity, Reaction): Coded Allergies: Prozac (Unverified Allergy, Mild, Rash, 10/08/16) Penicillin (Verified Allergy, Unknown, 10/08/16) Reported Meds & Prescriptions Reported Meds & Active Scripts Active No Active Prescriptions or Reported Medications Review of Systems ROS Limitations: Intoxication Except as stated in HPI: all other systems reviewed are Neg Physical Exam Exam Limitations: Intoxication Narrative GENERAL: Well-developed, well nourished, in no acute distress, and non-ill appearing. Patient appears intoxicated but answers questions appropriately when awoken. SKIN: Focused skin assessment warm and dry. HEAD: Atraumatic. Normocephalic. EYES: Pupils equal and round. EOMI. No scleral icterus. No injection or drainage. ENT: No nasal bleeding or discharge. Mucous membranes pink and moist. NECK: Trachea midline. Supple. No nuclear rigidity. CARDIOVASCULAR: Regular rate and rhythm. No murmur appreciated. RESPIRATORY: No accessory muscle use. No respiratory distress. Clear to auscultation. Breath sounds equal bilaterally. GASTROINTESTINAL: Abdomen soft, non-tender, nondistended. Hepatic and splenic margins not palpable. No pulsatile mass. MUSCULOSKELETAL: No obvious deformities. No clubbing. No cyanosis. No edema. Full range of motion. NEUROLOGICAL: Awake and alert. No obvious cranial nerve deficits. Motor grossly within normal limits. Normal speech. PSYCHIATRIC: Appropriate mood and affect; insight and judgment normal. Data Data Last Documented VS Vital Signs Date Time Temp Pulse Resp B/P Pulse Ox O2 Delivery O2 Flow Rate FiO2 10/17/16 17:00 15 97 10/17/16 16:46 98.6 81 123/67 Orders Complete Blood Count With Diff (10/17/16 16:51) Comprehensive Metabolic Panel (10/17/16 16:51) Alcohol (Ethanol) (10/17/16 20:17) Labs Laboratory Tests Test 10/17/16 16:55 White Blood Count 9.9 TH/MM3 Red Blood Count 4.29 MIL/MM3 Hemoglobin 14.2 GM/DL Hematocrit 41.5 % Mean Corpuscular Volume 96.7 FL Mean Corpuscular Hemoglobin 33.0 PG Mean Corpuscular Hemoglobin 34.2 % Concent Red Cell Distribution Width 15.0 % Platelet Count 308 TH/MM3 Mean Platelet Volume 6.4 FL Neutrophils (%) (Auto) 64.2 % Lymphocytes (%) (Auto) 22.3 % Monocytes (%) (Auto) 11.5 % Eosinophils (%) (Auto) 0.7 % Basophils (%) (Auto) 1.3 % Neutrophils # (Auto) 6.4 TH/MM3 Lymphocytes # (Auto) 2.2 TH/MM3 Monocytes # (Auto) 1.1 TH/MM3 Eosinophils # (Auto) 0.1 TH/MM3 Basophils # (Auto) 0.1 TH/MM3 CBC Comment AUTO DIFF Differential Total Cells 100 Counted Neutrophils % (Manual) 65 % Band Neutrophils % 15 % Lymphocytes % 11 % Monocytes % 8 % Neutrophils # (Manual) 8.0 TH/MM3 Myelocytes 1 % Differential Comment FINAL DIFF MANUAL Platelet Estimate NORMAL Platelet Morphology Comment NORMAL Red Cell Morphology Comment NORMAL Sodium Level 143 MEQ/L Potassium Level 4.2 MEQ/L Chloride Level 104 MEQ/L Carbon Dioxide Level 28.5 MEQ/L Anion Gap 11 MEQ/L Blood Urea Nitrogen 12 MG/DL Creatinine 0.97 MG/DL Estimat Glomerular Filtration 79 ML/MIN Rate Random Glucose 81 MG/DL Calcium Level 9.3 MG/DL Total Bilirubin 0.4 MG/DL Aspartate Amino Transf 53 U/L (AST/SGOT) Alanine Aminotransferase 49 U/L (ALT/SGPT) Alkaline Phosphatase 65 U/L Total Protein 8.8 GM/DL Albumin 4.4 GM/DL Ethyl Alcohol Level 334 MG/DL MDM Medical Decision Making Medical Screen Exam Complete: Yes Emergency Medical Condition: Yes Differential Diagnosis Alcohol intoxication, alcohol dependence, electrolyte abnormality, anemia, other Narrative Course Patient was seen and examined. Patient has been emergency department multiple times for similar. Patient has no medical complaints and appears to be at his baseline. Labs were obtained and reviewed. Patient will be monitored in the emergency department until clinically sober and able to ambulate on their own or until a sober responsible adult comes to pick them up at which time Servin's act will be lifted. Once patient jadon up if he has any complaints patient can be reassessed by different ER provider. RN is aware of this. Discussed patient with Dr. Malhotra prior to and of my shift, who is in agreement with plan of care and disposition. Diagnosis Primary Impression: Alcohol abuse with intoxication Referrals: [facility] Patient Instructions: Abuse of Alcohol (ED), Alcohol Intoxication (DC), General Instructions Additional Instructions: Follow-up with your primary care physician or [facility] for alcohol detox. Stop drinking. Return to the emergency department if symptoms get worse. Scripts No Active Prescriptions or Reported Meds Disposition: 01 DISCHARGE HOME Condition: Stable Hua Zurita October 17, 2016 20:22
[2016-10-18] MEDS ORDERED: LORA-475 PO (16:41)
== END 2016-10-18 02:31 | disposition home or self-care (01) ==
LOC: NEDAMB 16:44
DX: F10.129 Alcohol abuse with intoxication, unspecified (principal); Z86.59 Personal history of other mental and behavioral disorders; Z86.79 Personal history of other diseases of the circulatory system; Z86.19 Personal history of other infectious and parasitic diseases; Z87.891 Personal history of nicotine dependence
CPT/HCPCS: 80053; 80307; 85007; 85027; 99283

== ENCOUNTER 2016-10-18 13:39 | Emergency (ER) | payer SELFPAY ==
[~2016-10-18] VITALS: Ht 177.8 cm; Wt 85.0 kg
[2016-10-18 13:52] VITALS: BP 119/70; PULSE 57; RESP 20; TEMP 97.8; O2SAT 95
--- NOTE | 2016-10-18 14:41 | PD ---
Physical Exam Time Seen by Provider: 14:39 Narrative 61yo M c/o drinking too much ETOH . Brought in by [facility] for ETOH intoxication. Patient says his heart hurts, but denies chest pain. Was here yesterday for similar complaint. Patient seen in triage. VS reviewed. Awaiting bed placement. Data Data Last Documented VS Vital Signs Date Time Temp Pulse Resp B/P Pulse Ox O2 Delivery O2 Flow Rate FiO2 10/18/16 13:52 97.8 57 20 119/70 95 Room Air [facility] Supervised Visit with DIANNE: No Scripts No Active Prescriptions or Reported Meds Vangie Campoverde October 18, 2016 14:41
[2016-10-18 16:27] VITALS: BP 124/73; PULSE 60; RESP 18; O2SAT 98
--- NOTE | 2016-10-18 16:37 | PD ---
HPI Chief Complaint: Alcohol/Drug Intoxication Time Seen by Provider: 16:35 Travel History International Travel<30 days: No Contact w/Intl Traveler<30days: No Traveled to known affect area: No History of Present Illness HPI 61-year-old male with a history of alcohol abuse presents to the emergency department requesting detox from alcohol. He has been drinking daily for many years. The patient states that he has not had any alcohol in "a few days." He complains of heart palpitations today. He denies any chest pain, shortness of breath, lightheadedness, dizziness, nausea, vomiting, abdominal pain. He denies drug use. Denies suicidal or homicidal ideations. No other complaints. PFSH Past Medical History Blood Disorders: No Anxiety: Yes Depression: Yes Heart Rhythm Problems: No Cardiovascular Problems: Yes (ANGINA ) High Cholesterol: No Chest Pain: No Congestive Heart Failure: No Diminished Hearing: No Endocrine: No Gastrointestinal Disorders: No Genitourinary: No Hepatitis: Yes (HEP C) Hypertension: No Immune Disorder: No Implanted Vascular Access Dvce: No Musculoskeletal: No Neurologic: No Psychiatric: Yes Reproductive: No Respiratory: No Immunizations Current: Yes Seizures: Yes (DUE TO ALCOHOL WITHDRAWL) Past Surgical History Oral Surgery: Yes (TEETH EXTRACTIONS) Other Surgery: Yes (UNKNOWN BACK SURGERY) Social History Alcohol Use: Yes (ALCOHOLISM) Tobacco Use: No (QUIT) Substance Use: Yes Allergies-Medications (Allergen,Severity, Reaction): Coded Allergies: Prozac (Unverified Allergy, Mild, Rash, 10/18/16) Penicillin (Verified Allergy, Unknown, 10/18/16) Reported Meds & Prescriptions Reported Meds & Active Scripts Active Reported Ativan (Lorazepam) 2 Mg Tab 2 Mg PO Q4-6H PRN Review of Systems Except as stated in HPI: all other systems reviewed are Neg Physical Exam Narrative GENERAL: Well-nourished and well-developed pleasant male patient in no acute distress who is nontoxic appearing. SKIN: Warm and dry. HEAD: Normocephalic and atraumatic. EYES: No injection, drainage, or hyphema noted. PERRLA. EOMI. ENT: No nasal drainage noted. Oropharynx is clear. NECK: Supple and the trachea is midline. CARDIOVASCULAR: Regular rate and rhythm. RESPIRATORY: Breath sounds are equal bilaterally with no accessory muscle use, wheezing, rhonchi, or crackles. GASTROINTESTINAL: Abdomen is soft, non-tender, and nondistended. MUSCULOSKELETAL: No obvious deformities, swelling, cyanosis, or ecchymosis is present throughout the upper and lower extremities. Patient has full range of motion without any signs of neurovascular compromise. NEUROLOGICAL: Awake, alert, and oriented. Normal speech and gait. Cranial nerves are grossly intact. Data Data Last Documented VS Vital Signs Date Time Temp Pulse Resp B/P Pulse Ox O2 Delivery O2 Flow Rate FiO2 10/18/16 16:27 60 18 124/73 98 Room Air 10/18/16 13:52 97.8 Orders Electrocardiogram (10/18/16 16:34) MDM Medical Decision Making Medical Screen Exam Complete: Yes Emergency Medical Condition: Yes Differential Diagnosis Alcohol abuse versus medical clearance versus alcohol dependence Narrative Course 61-year-old male with a history of alcohol abuse presents to the emergency department requesting detox. Patient is afebrile, vital signs are stable. Physical examination is unremarkable. EKG shows sinus bradycardia with ventricular rate of 57 bpm, no acute ST elevations or depressions. Patient is well-known to our facility for frequent visits for alcohol intoxication. Patient was seen in our emergency department last night for alcohol intoxication and had lab work which was unremarkable for any acute abnormalities besides an alcohol of 334. The patient is not suicidal or homicidal. No evidence on examination of acute alcohol withdrawal. Patient will be discharged to follow-up with [facility] as an outpatient. I discussed the case with my attending physician Dr. Ricks who is aware of the patients history, physical examination findings, and treatment plan. Diagnosis Primary Impression: Alcohol abuse Referrals: [facility] Patient Instructions: General Instructions Additional Instructions: Follow-up with [facility] first thing tomorrow morning. Return to the ED for any acute worsening of symptoms. Med/Other Pt SpecificInfo: No Change to Meds Disposition: 01 DISCHARGE HOME Condition: Stable Vangie Pop October 18, 2016 16:37
[2016-10-18] MEDS ORDERED: LORA-475 PO (16:41)
--- NOTE | 2016-10-19 07:52 | EKG ---
Date Performed: 10/18/2016 Time Performed: 16:43:07 PTAGE: 61 years EKG: SINUS BRADYCARDIA BORDERLINE ECG Compared to the PREVIOUS TRACING from 10/08/16, rate has decreased DOCTOR: Gurpreet Khan Interpretating Date/Time 10/19/2016 07:52:05
== END 2016-10-18 17:43 | disposition home or self-care (01) ==
LOC: NEPD 13:39
DX: F10.10 Alcohol abuse, uncomplicated (principal); R00.1 Bradycardia, unspecified; F41.8 Other specified anxiety disorders; B19.20 Unspecified viral hepatitis C without hepatic coma
CPT/HCPCS: 93005; 99283

== ENCOUNTER 2016-10-19 10:23 | Emergency (ER) | payer OTHER ==
[~2016-10-19] VITALS: Ht 182.9 cm; Wt 77.0 kg
[~2016-10-19 10:23] MED LIST changes: +LORA-475 PO; -PROT40TA PO
--- NOTE | 2016-10-19 10:38 | PD ---
HPI Chief Complaint: [place] act Time Seen by Provider: 10:31 Travel History International Travel<30 days: No Contact w/Intl Traveler<30days: No History of Present Illness HPI Patient is a 61-year-old male who was brought to the emergency room by police officers under act. Reports that he is an alcoholic, reports that he just wants to stop drinking. Patient at this time denies any active homicidal or suicidal ideation. Denies any use of any other drugs besides alcohol. PFSH Past Medical History Anxiety: Yes Depression: Yes Cardiovascular Problems: Yes (ANGINA ) Diminished Hearing: No Hepatitis: Yes (HEP C) Psychiatric: Yes Immunizations Current: Yes Seizures: Yes (DUE TO ALCOHOL WITHDRAWL) Past Surgical History Oral Surgery: Yes (TEETH EXTRACTIONS) Other Surgery: Yes (UNKNOWN BACK SURGERY) Social History Alcohol Use: Yes (ALCOHOLISM LAST DRINK 10/18/16 0700) Tobacco Use: No (QUIT) Substance Use: No Allergies-Medications (Allergen,Severity, Reaction): Coded Allergies: Prozac (Unverified Allergy, Mild, Rash, 10/18/16) Penicillin (Verified Allergy, Unknown, 10/18/16) Reported Meds & Prescriptions Reported Meds & Active Scripts Active Reported Ativan (Lorazepam) 2 Mg Tab 2 Mg PO Q4-6H PRN Review of Systems General / Constitutional: No: Fever Eyes: No: Visual changes HENT: No: Headaches Cardiovascular: No: Chest Pain or Discomfort Respiratory: No: Shortness of Breath Gastrointestinal: No: Abdominal Pain Genitourinary: No: Dysuria Musculoskeletal: No: Pain Skin: No Rash Neurologic: No: Weakness Psychiatric: Positive: Depression, Substance Abuse Endocrine: No: Polydipsia Hematologic/Lymphatic: No: Easy Bruising Physical Exam Narrative GENERAL: No acute distress, nontoxic SKIN: Focused skin assessment warm/dry. HEAD: Atraumatic. Normocephalic. EYES: Pupils equal and round. No scleral icterus. No injection or drainage. ENT: No nasal bleeding or discharge. Mucous membranes pink and moist. NECK: Trachea midline. No JVD. CARDIOVASCULAR: Regular rate and rhythm. No murmur appreciated. RESPIRATORY: No accessory muscle use. Clear to auscultation. Breath sounds equal bilaterally. GASTROINTESTINAL: Abdomen soft, non-tender, nondistended. Hepatic and splenic margins not palpable. MUSCULOSKELETAL: No obvious deformities. No clubbing. No cyanosis. No edema. NEUROLOGICAL: Awake and alert. No obvious cranial nerve deficits. Motor grossly within normal limits. Normal speech. PSYCHIATRIC: Patient intoxicated Data Data Last Documented VS Vital Signs Date Time Temp Pulse Resp B/P Pulse Ox O2 Delivery O2 Flow Rate FiO2 10/19/16 13:22 84 16 98 Nasal Cannula 2 10/19/16 10:45 98.8 118/67 Orders Complete Blood Count With Diff (10/19/16 10:34) Comprehensive Metabolic Panel (10/19/16 10:34) Iv Access Insert/Monitor (10/19/16 10:34) Ecg Monitoring (10/19/16 10:34) Psych Screen (10/19/16 10:34) Drug Screen, Random Urine (10/19/16 10:34) Alcohol (Ethanol) (10/19/16 10:34) Sodium Chlor 0.9% 1000 Ml Inj (Ns 1000 M (10/19/16 13:15) Labs Laboratory Tests Test 10/19/16 10/19/16 10:50 11:15 White Blood Count 3.8 TH/MM3 Red Blood Count 3.90 MIL/MM3 Hemoglobin 12.6 GM/DL Hematocrit 38.4 % Mean Corpuscular Volume 98.6 FL Mean Corpuscular Hemoglobin 32.4 PG Mean Corpuscular Hemoglobin 32.8 % Concent Red Cell Distribution Width 14.9 % Platelet Count 200 TH/MM3 Mean Platelet Volume 6.0 FL Neutrophils (%) (Auto) 54.0 % Lymphocytes (%) (Auto) 25.6 % Monocytes (%) (Auto) 17.4 % Eosinophils (%) (Auto) 1.1 % Basophils (%) (Auto) 1.9 % Neutrophils # (Auto) 2.1 TH/MM3 Lymphocytes # (Auto) 1.0 TH/MM3 Monocytes # (Auto) 0.7 TH/MM3 Eosinophils # (Auto) 0.0 TH/MM3 Basophils # (Auto) 0.1 TH/MM3 CBC Comment DIFF FINAL Differential Comment Sodium Level 151 MEQ/L Potassium Level 4.1 MEQ/L Chloride Level 117 MEQ/L Carbon Dioxide Level 24.7 MEQ/L Anion Gap 9 MEQ/L Blood Urea Nitrogen 11 MG/DL Creatinine 0.79 MG/DL Estimat Glomerular Filtration 100 ML/MIN Rate Random Glucose 82 MG/DL Calcium Level 8.2 MG/DL Total Bilirubin 0.4 MG/DL Aspartate Amino Transf 100 U/L (AST/SGOT) Alanine Aminotransferase 76 U/L (ALT/SGPT) Alkaline Phosphatase 53 U/L Total Protein 7.5 GM/DL Albumin 3.6 GM/DL Ethyl Alcohol Level 357 MG/DL Urine Opiates Screen NEG Urine Barbiturates Screen NEG Urine Amphetamines Screen NEG Urine Benzodiazepines Screen POS Urine Cocaine Screen NEG Urine Cannabinoids Screen NEG MDM Medical Decision Making Medical Screen Exam Complete: Yes Emergency Medical Condition: Yes Differential Diagnosis Alcohol intoxication, impending DTs, suicidal ideations, electrolyte abnormality Narrative Course 61-year-old male who is brought to the emergency room under [place] act by police officers as patient has been drinking and is currently intoxicated, police officers report concerns for his safety. Patient at this time denies any suicidal or homicidal ideations. Plan to obtain tox screens, once medically cleared, will have him seen by psychiatric screeners. Laboratory Tests Test 10/19/16 10/19/16 10:50 11:15 White Blood Count 3.8 TH/MM3 (4.0-11.0) Red Blood Count 3.90 MIL/MM3 (4.50-5.90) Hemoglobin 12.6 GM/DL (13.0-17.0) Hematocrit 38.4 % (39.0-51.0) Mean Corpuscular Volume 98.6 FL (80.0-100.0) Mean Corpuscular Hemoglobin 32.4 PG (27.0-34.0) Mean Corpuscular Hemoglobin 32.8 % Concent (32.0-36.0) Red Cell Distribution Width 14.9 % (11.6-17.2) Platelet Count 200 TH/MM3 (150-450) Mean Platelet Volume 6.0 FL (7.0-11.0) Neutrophils (%) (Auto) 54.0 % (16.0-70.0) Lymphocytes (%) (Auto) 25.6 % (9.0-44.0) Monocytes (%) (Auto) 17.4 % (0.0-8.0) Eosinophils (%) (Auto) 1.1 % (0.0-4.0) Basophils (%) (Auto) 1.9 % (0.0-2.0) Neutrophils # (Auto) 2.1 TH/MM3 (1.8-7.7) Lymphocytes # (Auto) 1.0 TH/MM3 (1.0-4.8) Monocytes # (Auto) 0.7 TH/MM3 (0-0.9) Eosinophils # (Auto) 0.0 TH/MM3 (0-0.4) Basophils # (Auto) 0.1 TH/MM3 (0-0.2) CBC Comment DIFF FINAL Differential Comment Sodium Level 151 MEQ/L (136-145) Potassium Level 4.1 MEQ/L (3.5-5.1) Chloride Level 117 MEQ/L (98-107) Carbon Dioxide Level 24.7 MEQ/L (21.0-32.0) Anion Gap 9 MEQ/L (5-15) Blood Urea Nitrogen 11 MG/DL (7-18) Creatinine 0.79 MG/DL (0.60-1.30) Estimat Glomerular Filtration 100 ML/MIN Rate (>89) Random Glucose 82 MG/DL (74-106) Calcium Level 8.2 MG/DL (8.5-10.1) Total Bilirubin 0.4 MG/DL (0.2-1.0) Aspartate Amino Transf 100 U/L (15-37) (AST/SGOT) Alanine Aminotransferase 76 U/L (12-78) (ALT/SGPT) Alkaline Phosphatase 53 U/L (45-117) Total Protein 7.5 GM/DL (6.4-8.2) Albumin 3.6 GM/DL (3.4-5.0) Ethyl Alcohol Level 357 MG/DL (0-5) Urine Opiates Screen NEG (NEG) Urine Barbiturates Screen NEG (NEG) Urine Amphetamines Screen NEG (NEG) Urine Benzodiazepines Screen POS (NEG) Urine Cocaine Screen NEG (NEG) Urine Cannabinoids Screen NEG (NEG) patient clinically sober at this time. patient ambulating in ER with normal gait. plan to discharge patient to [facility] Diagnosis Primary Impression: Alcohol abuse with intoxication Additional Impression: Depression Referrals: [facility] Patient Instructions: General Instructions Additional Instructions: Please go straight to [facility] for follow up Please stop drinking alcohol Condition: Stable Shaina Renee DO Oct 19, 2016 10:38
[2016-10-19 10:45] VITALS: BP 118/67; PULSE 78; RESP 16; TEMP 98.8; O2SAT 96
[2016-10-19 11:29] LABS: AUTOMATED NEUTROPHIL # 2.1 TH/MM3 (1.8-7.7); BASOPHIL # 0.1 TH/MM3 (0-0.2); BASOPHIL % 1.9 % (0.0-2.0); EOSINOPHIL % 1.1 % (0.0-4.0); HEMATOCRIT 38.4 % (39.0-51.0); HEMO FLAGS DIFF FINAL; LYMPH % 25.6 % (9.0-44.0); MEAN CELL VOLUME 98.6 FL (80.0-100.0); MEAN CORPUSCULAR HEMOGLOBIN 32.4 PG (27.0-34.0); MEAN CORPUSCULAR HGB CONC 32.8 % (32.0-36.0); MONO % 17.4 % (0.0-8.0); PLATELET COUNT 200 TH/MM3 (150-450); RED CELL DISTRIBUTION WIDTH 14.9 % (11.6-17.2); WHITE BLOOD COUNT 3.8 TH/MM3 (4.0-11.0)
[2016-10-19 11:33] LABS: AMPHETAMINE, URINE NEG (NEG); BARBITURATES, URINE NEG (NEG); COCAINE, URINE NEG (NEG)
[2016-10-19 11:51] LABS: ALKALINE PHOSPHATASE 53 U/L (45-117); ALT (GPT) 76 U/L (12-78); ANION GAP 9 MEQ/L (5-15); AST (GOT) 100 U/L (15-37); BICARBONATE 24.7 MEQ/L (21.0-32.0); BLOOD UREA NITROGEN 11 MG/DL (7-18); CHLORIDE 117 MEQ/L (98-107); GLOMERULAR FILTRATION RATE 100 ML/MIN (>89); POTASSIUM 4.1 MEQ/L (3.5-5.1); SODIUM (NA) 151 MEQ/L (136-145); TOTAL BILIRUBIN ADULT 0.4 MG/DL (0.2-1.0)
[2016-10-19] MEDS ORDERED: SODIUM CHLOR 0.9% 1000 ML INJ 1,000 ML IV ONE (13:15)
[2016-10-19 13:22] VITALS: PULSE 84; RESP 16; O2SAT 98
[2016-10-19 16:36] VITALS: BP 113/68; PULSE 78; RESP 16; TEMP 98.2; O2SAT 99
== END 2016-10-19 16:49 | disposition home health service (06) ==
LOC: NEPC 10:23
DX: F10.129 Alcohol abuse with intoxication, unspecified (principal); F32.9 Major depressive disorder, single episode, unspecified; Y90.8 Blood alcohol level of 240 mg/100 ml or more; R56.9 Unspecified convulsions
CPT/HCPCS: 80053; 85025; 96360; 96361; 99284; J7030; 80307

== ENCOUNTER 2016-10-19 21:36 | Emergency (ER) | payer OTHER ==
[2016-10-19 21:52] VITALS: BP 110/63; PULSE 69; RESP 15; TEMP 97.9; O2SAT 96
[2016-10-19 22:20] LABS: AUTOMATED NEUTROPHIL # 2.1 TH/MM3 (1.8-7.7); BASOPHIL # 0.1 TH/MM3 (0-0.2); BASOPHIL % 2.9 % (0.0-2.0); HEMATOCRIT 38.9 % (39.0-51.0); HEMO FLAGS DIFF FINAL; LYMPH % 24.5 % (9.0-44.0); LYMPHOCYTE # 0.9 TH/MM3 (1.0-4.8); MEAN CORPUSCULAR HEMOGLOBIN 32.2 PG (27.0-34.0); MEAN CORPUSCULAR HGB CONC 32.8 % (32.0-36.0); MONO % 16.4 % (0.0-8.0); NEUT % 55.2 % (16.0-70.0); PLATELET COUNT 179 TH/MM3 (150-450); RED BLOOD COUNT 3.97 MIL/MM3 (4.50-5.90); WHITE BLOOD COUNT 3.8 TH/MM3 (4.0-11.0)
[2016-10-19 22:43] LABS: ANION GAP 11 MEQ/L (5-15); AST (GOT) 123 U/L (15-37); BICARBONATE 23.7 MEQ/L (21.0-32.0); BLOOD UREA NITROGEN 7 MG/DL (7-18); CHLORIDE 118 MEQ/L (98-107); GLOMERULAR FILTRATION RATE 108 ML/MIN (>89); POTASSIUM 3.8 MEQ/L (3.5-5.1); SODIUM (NA) 153 MEQ/L (136-145)
[2016-10-19 22:46] LABS: ALKALINE PHOSPHATASE 51 U/L (45-117); ALT (GPT) 92 U/L (12-78); TOTAL BILIRUBIN ADULT 0.4 MG/DL (0.2-1.0)
[2016-10-20 02:25] VITALS: BP 111/63; PULSE 65; RESP 18; O2SAT 96
[2016-10-20 06:13] VITALS: BP 100/52; PULSE 73; RESP 18; O2SAT 96
[2016-10-20] MEDS ORDERED: chlordiazePOXIDE 25 MG CAP PO PRN (07:00)
--- NOTE | 2016-10-20 07:04 | PD ---
HPI Chief Complaint: Psychiatric Symptoms Time Seen by Provider: 06:57 Travel History International Travel<30 days: No Contact w/Intl Traveler<30days: No Traveled to known affect area: No History of Present Illness HPI 61-year-old white male presents to emergency department under [place] act. The patient allegedly was just seen earlier during the day for alcohol intoxication. He was sobered up in the ER. He states that when he left the ER he started feeling shaky again from alcohol withdrawal. He states that he went and drank a large quantity of alcohol. The patient does not recall contacting police. According to the Gut[place]res act he had made suicidal threats. He states that he was going to shoot himself with a shotgun. The patient denies any homicidal ideation. The patient denies any toxic ingestions. PFSH Past Medical History Anxiety: Yes Depression: Yes Cardiovascular Problems: Yes (ANGINA ) Diabetes: No Dialysis: No Diminished Hearing: No Hepatitis: Yes Psychiatric: Yes Immunizations Current: Yes Seizures: Yes (DUE TO ALCOHOL WITHDRAWL) Past Surgical History Oral Surgery: Yes Other Surgery: Yes (UNKNOWN BACK SURGERY) Social History Alcohol Use: Yes Tobacco Use: No (QUIT AFTER 45 YEARS) Substance Use: Yes Allergies-Medications (Allergen,Severity, Reaction): Coded Allergies: Prozac (Unverified Allergy, Mild, Rash, 10/19/16) Penicillin (Verified Allergy, Unknown, 10/19/16) Reported Meds & Prescriptions Reported Meds & Active Scripts Active Reported Ativan (Lorazepam) 2 Mg Tab 2 Mg PO Q4-6H PRN Review of Systems ROS Limitations: Intoxication Physical Exam Narrative GENERAL: Well-nourished, well-developed patient. Patient appears intoxicated. SKIN: Warm and dry. HEAD: Normocephalic and atraumatic. EYES: No scleral icterus. No injection or drainage. ENT: No nasal drainage noted. Mucous membranes pink. Airway patent. NECK: Supple, trachea midline. Moves head freely without obvious discomfort. CARDIOVASCULAR: Regular rate and rhythm without murmurs, gallops, or rubs. RESPIRATORY: Breath sounds equal bilaterally. No accessory muscle use. GASTROINTESTINAL: Abdomen soft, non-tender, nondistended. EXTREMITIES: No cyanosis or edema. BACK: Nontender without obvious deformity. No CVA tenderness. NEURO: Patient is alert and oriented to person. no sensorimotor deficits. Nonfocal. Slurred speech. PSYCH: No delusions. No auditory or visual hallucinations. Data Data Last Documented VS Vital Signs Date Time Temp Pulse Resp B/P Pulse Ox O2 Delivery O2 Flow Rate FiO2 10/20/16 06:13 73 18 100/52 96 Room Air 10/19/16 21:52 97.9 Orders Complete Blood Count With Diff (10/19/16 22:05) Comprehensive Metabolic Panel (10/19/16 22:05) Psych Screen (10/19/16 22:05) Alcohol (Ethanol) (10/19/16 22:02) Diet Regular Basic (10/20/16 Breakfast) Labs Laboratory Tests Test 10/19/16 22:02 White Blood Count 3.8 TH/MM3 Red Blood Count 3.97 MIL/MM3 Hemoglobin 12.8 GM/DL Hematocrit 38.9 % Mean Corpuscular Volume 98.0 FL Mean Corpuscular Hemoglobin 32.2 PG Mean Corpuscular Hemoglobin 32.8 % Concent Red Cell Distribution Width 15.0 % Platelet Count 179 TH/MM3 Mean Platelet Volume 5.6 FL Neutrophils (%) (Auto) 55.2 % Lymphocytes (%) (Auto) 24.5 % Monocytes (%) (Auto) 16.4 % Eosinophils (%) (Auto) 1.0 % Basophils (%) (Auto) 2.9 % Neutrophils # (Auto) 2.1 TH/MM3 Lymphocytes # (Auto) 0.9 TH/MM3 Monocytes # (Auto) 0.6 TH/MM3 Eosinophils # (Auto) 0.0 TH/MM3 Basophils # (Auto) 0.1 TH/MM3 CBC Comment DIFF FINAL Differential Comment Sodium Level 153 MEQ/L Potassium Level 3.8 MEQ/L Chloride Level 118 MEQ/L Carbon Dioxide Level 23.7 MEQ/L Anion Gap 11 MEQ/L Blood Urea Nitrogen 7 MG/DL Creatinine 0.74 MG/DL Estimat Glomerular Filtration 108 ML/MIN Rate Random Glucose 79 MG/DL Calcium Level 7.8 MG/DL Total Bilirubin 0.4 MG/DL Aspartate Amino Transf 123 U/L (AST/SGOT) Alanine Aminotransferase 92 U/L (ALT/SGPT) Alkaline Phosphatase 51 U/L Total Protein 7.2 GM/DL Albumin 3.4 GM/DL Ethyl Alcohol Level 389 MG/DL MDM Medical Decision Making Medical Screen Exam Complete: Yes Emergency Medical Condition: Yes Medical Record Reviewed: Yes Differential Diagnosis MDM: High Differential diagnoses: Schizophrenia, schizoaffective disorder, bipolar, anxiety, depression, adjustment reaction, mood disorder NOS, ODD, depressive disorder NOS, dementia, dementia with agitation, psychosis NOS, substance induced mood disorder, intermittent explosive disorder, Asperger syndrome, infection,electrolyte abnormality, malingering. Narrative Course Mental health screening discussed with the patient. Psychiatric screen ordered. The patient has been allowed to sober up in the ER. The patient now states that he does not recall making any suicidal statements. He does report having a shotgun at home. He states that he has no intention on hurting himself. He states that he had gone home and drank a large quantity of alcohol. The patient now feels somewhat tremulous. He'll be given Librium 50 mg by mouth. This is alcohol induced mood disorder Diagnosis Primary Impression: Substance induced mood disorder Condition: Devon Gonzalez Oct 20, 2016 07:04
[2016-10-20 10:00] VITALS: BP 110/60; PULSE 75; RESP 18
--- NOTE | 2016-10-20 11:24 | PD ---
History of Present Illness Chief Complaint: Psychiatric Symptoms Travel History International Travel<30 Days: No Contact w/Intl Traveler<30days: No Known affected area: No Legal Status Legal Status: Gutierres Act Gutierres Act Signed By: Keysha Fermin History of Present Illness: 61-year-old male with extensive history of alcohol abuse, admitted twice yesterday for alcohol intoxication and suicidal ideation. At this point the patient is sober and he denies any suicidal ideation, plan or intent. He is not homicidal. He has no psychotic symptoms and his cognition is intact. In fact, he would like to be discharged to go to work. He no longer meets criteria for Gutierres act and does not meet criteria for inpatient psychiatric hospitalization. Patient is competent to be discharged on his own accord. [facility] Past Medical History Medical History: Denies Significant Hx Anxiety: Yes Depression: Yes Cardiovascular Problems: Yes (ANGINA ) Diabetes: No Dialysis: No Diminished Hearing: No Hepatitis: Yes Psychiatric: Yes Immunizations Current: Yes Seizures: Yes (DUE TO ALCOHOL WITHDRAWL) Past Surgical History Oral Surgery: Yes Other Surgery: Yes (UNKNOWN BACK SURGERY) Psychiatric History Psychiatric History Hx Psychiatric Treatment: PATIENT WAS LAST ADMITTED TO [facility] FROM 11/25/15 TO 11/29/15 FOR DEPRESSION associated with alcohol abuse. History of Inpatient Treatment: Yes Guns or firearms in home: No Social History Hx Alcohol Use: Yes Hx Tobacco Use: No (QUIT AFTER 45 YEARS) Hx Substance Use: Yes Substance Use Type: Alcohol, Heroin Other Substances Used: last alcohol 0200 and last heroin 3 days ago Hx of Substance Use Treatment: Yes Allergies-Medications (Allergen,Severity, Reaction): Coded Allergies: Prozac (Unverified Allergy, Mild, Rash, 10/19/16) Penicillin (Verified Allergy, Unknown, 10/19/16) Reported Meds & Prescriptions Reported Meds & Active Scripts Active Reported Ativan (Lorazepam) 2 Mg Tab 2 Mg PO Q4-6H PRN Review of Systems Except as stated in HPI: all other systems reviewed are Neg Exam Alert: Yes [place]: Person, Place, Date, Situation Mood: Calm Affect: Appropriate Speech: Clear, Logical Eye Contact: Normal Memory Intact: Immediate, Recent, Remote Insight/Judgement Adequate MDM Medical Decision Making Medical Record Reviewed: Yes Assessment/Plan Patient's Gutierres act being lifted and he is being discharged home. He wants to go to work and this physician feels that would be good for him. He is verbally shlomo for safety and is competent to do so. He was of course encouraged to stop drinking and attend AA meetings. Orders Complete Blood Count With Diff (10/19/16 22:05) Comprehensive Metabolic Panel (10/19/16 22:05) Psych Screen (10/19/16 22:05) Alcohol (Ethanol) (10/19/16 22:02) Diet Regular Basic (10/20/16 Breakfast) Chlordiazepoxide (Librium) (10/20/16 07:00) Diet Regular Basic (10/20/16 Lunch) Results Vital Signs Date Time Temp Pulse Resp B/P Pulse Ox O2 Delivery O2 Flow Rate FiO2 10/20/16 10:00 75 18 110/60 Room Air 10/20/16 06:13 73 18 100/52 96 Room Air 10/20/16 02:25 65 18 111/63 96 Room Air 10/19/16 21:52 97.9 69 15 110/63 96 Laboratory Tests Test 10/19/16 22:02 White Blood Count 3.8 Red Blood Count 3.97 Hemoglobin 12.8 Hematocrit 38.9 Mean Corpuscular Volume 98.0 Mean Corpuscular Hemoglobin 32.2 Mean Corpuscular Hemoglobin 32.8 Concent Red Cell Distribution Width 15.0 Platelet Count 179 Mean Platelet Volume 5.6 Neutrophils (%) (Auto) 55.2 Lymphocytes (%) (Auto) 24.5 Monocytes (%) (Auto) 16.4 Eosinophils (%) (Auto) 1.0 Basophils (%) (Auto) 2.9 Neutrophils # (Auto) 2.1 Lymphocytes # (Auto) 0.9 Monocytes # (Auto) 0.6 Eosinophils # (Auto) 0.0 Basophils # (Auto) 0.1 CBC Comment DIFF FINAL Differential Comment Sodium Level 153 Potassium Level 3.8 Chloride Level 118 Carbon Dioxide Level 23.7 Anion Gap 11 Blood Urea Nitrogen 7 Creatinine 0.74 Estimat Glomerular Filtration 108 Rate Random Glucose 79 Calcium Level 7.8 Total Bilirubin 0.4 Aspartate Amino Transf 123 (AST/SGOT) Alanine Aminotransferase 92 (ALT/SGPT) Alkaline Phosphatase 51 Total Protein 7.2 Albumin 3.4 Ethyl Alcohol Level 389 Diagnosis Primary Impression: Alcohol abuse Departure Forms: Tests/Procedures Patient Instructions: General Instructions, Abuse of Alcohol (ED), Medical Clearance for Psychiatric Care (ED) Additional Instructions: FOLLOW UP WITH YOUR OUTPATIENT PRIMARY CARE. ATTEND AA MEETINGS. RETURN TO EMERGENCY DEPARTMENT IF SYMPTOMS ARE WORSE. Disposition: 01 DISCHARGE HOME Condition: Stable Davie Oconnell MD Oct 20, 2016 11:24
== END 2016-10-20 11:32 | disposition home or self-care (01) ==
LOC: NEDAMB 21:36 → NEPJ 10-20 11:32
DX: F10.14 Alcohol abuse with alcohol-induced mood disorder (principal); F41.8 Other specified anxiety disorders; F11.20 Opioid dependence, uncomplicated; Z87.891 Personal history of nicotine dependence; Y90.8 Blood alcohol level of 240 mg/100 ml or more
CPT/HCPCS: 80053; 80307; 85025; 99283

== ENCOUNTER 2016-10-22 09:59 | Emergency (ER) | payer SELFPAY ==
[~2016-10-22] VITALS: Ht 182.9 cm; Wt 78.0 kg
[2016-10-22 10:13] VITALS: BP 100/64; PULSE 67; RESP 16; TEMP 97.6; O2SAT 92
[2016-10-22] MEDS ORDERED: SODIUM CHLOR 0.9% 1000 ML INJ 1,000 ML IV ONE (10:15)
[2016-10-22 10:33] LABS: AUTOMATED NEUTROPHIL # 2.2 TH/MM3 (1.8-7.7); BASOPHIL # 0.1 TH/MM3 (0-0.2); BASOPHIL % 1.1 % (0.0-2.0); EOSINOPHIL # 0.1 TH/MM3 (0-0.4); EOSINOPHIL % 1.9 % (0.0-4.0); HEMO FLAGS DIFF FINAL; LYMPH % 39.6 % (9.0-44.0); LYMPHOCYTE # 1.8 TH/MM3 (1.0-4.8); MEAN CELL VOLUME 96.8 FL (80.0-100.0); MEAN CORPUSCULAR HEMOGLOBIN 32.8 PG (27.0-34.0); MEAN CORPUSCULAR HGB CONC 33.9 % (32.0-36.0); MONO % 9.5 % (0.0-8.0); NEUT % 47.9 % (16.0-70.0); PLATELET COUNT 155 TH/MM3 (150-450); RED BLOOD COUNT 4.13 MIL/MM3 (4.50-5.90); RED CELL DISTRIBUTION WIDTH 14.5 % (11.6-17.2); WHITE BLOOD COUNT 4.5 TH/MM3 (4.0-11.0)
--- NOTE | 2016-10-22 10:35 | PD ---
HPI Chief Complaint: Medical Clearance Time Seen by Provider: 10:13 Travel History International Travel<30 days: No Contact w/Intl Traveler<30days: No Traveled to known affect area: No History of Present Illness HPI 61-year-old male presents stating he drank too much today and is wanting to get help to get off alcohol. He states he's on the waiting list at [facility]. History is limited on initial evaluation given acute intoxication but he denies other complaints PFSH Past Medical History Anxiety: Yes Depression: Yes Cardiovascular Problems: Yes (ANGINA ) Diabetes: No Dialysis: No Diminished Hearing: No Hepatitis: Yes Psychiatric: Yes Immunizations Current: Yes Seizures: Yes (DUE TO ALCOHOL WITHDRAWL) Past Surgical History Oral Surgery: Yes Other Surgery: Yes (UNKNOWN BACK SURGERY) Social History Alcohol Use: Yes Tobacco Use: No (QUIT AFTER 45 YEARS) Substance Use: Yes Allergies-Medications (Allergen,Severity, Reaction): Coded Allergies: Prozac (Unverified Allergy, Mild, Rash, 10/22/16) Penicillin (Verified Allergy, Unknown, 10/22/16) Reported Meds & Prescriptions Reported Meds & Active Scripts Active Reported Ativan (Lorazepam) 2 Mg Tab 2 Mg PO Q4-6H PRN Review of Systems Except as stated in HPI: all other systems reviewed are Neg Physical Exam Narrative GENERAL: Well-nourished, well-developed patient. SKIN: Warm and dry. HEAD: Normocephalic and atraumatic. EYES: No injection or drainage. ENT: No nasal drainage noted. NECK: Supple, trachea midline. CARDIOVASCULAR: Regular rate and rhythm RESPIRATORY: Breath sounds equal bilaterally. No accessory muscle use. GASTROINTESTINAL: Abdomen soft, non-tender, nondistended. EXTREMITIES: No edema. NEUROLOGICAL: Awake and alert. Motor and sensory grossly within normal limits. slurred speech. Data Data Last Documented VS Vital Signs Date Time Temp Pulse Resp B/P Pulse Ox O2 Delivery O2 Flow Rate FiO2 10/22/16 13:41 48 16 90/56 98 Room Air 10/22/16 10:13 97.6 Orders Complete Blood Count With Diff (10/22/16 10:14) Basic Metabolic Panel (Bmp) (10/22/16 10:14) Iv Access Insert/Monitor (10/22/16 10:14) Alcohol (Ethanol) (10/22/16 10:14) Sodium Chlor 0.9% 1000 Ml Inj (Ns 1000 M (10/22/16 10:15) Labs Laboratory Tests Test 10/22/16 10:17 White Blood Count 4.5 TH/MM3 Red Blood Count 4.13 MIL/MM3 Hemoglobin 13.5 GM/DL Hematocrit 40.0 % Mean Corpuscular Volume 96.8 FL Mean Corpuscular Hemoglobin 32.8 PG Mean Corpuscular Hemoglobin 33.9 % Concent Red Cell Distribution Width 14.5 % Platelet Count 155 TH/MM3 Mean Platelet Volume 6.3 FL Neutrophils (%) (Auto) 47.9 % Lymphocytes (%) (Auto) 39.6 % Monocytes (%) (Auto) 9.5 % Eosinophils (%) (Auto) 1.9 % Basophils (%) (Auto) 1.1 % Neutrophils # (Auto) 2.2 TH/MM3 Lymphocytes # (Auto) 1.8 TH/MM3 Monocytes # (Auto) 0.4 TH/MM3 Eosinophils # (Auto) 0.1 TH/MM3 Basophils # (Auto) 0.1 TH/MM3 CBC Comment DIFF FINAL Differential Comment Sodium Level 145 MEQ/L Potassium Level 3.7 MEQ/L Chloride Level 111 MEQ/L Carbon Dioxide Level 25.3 MEQ/L Anion Gap 9 MEQ/L Blood Urea Nitrogen 8 MG/DL Creatinine 0.78 MG/DL Estimat Glomerular Filtration 102 ML/MIN Rate Random Glucose 146 MG/DL Calcium Level 8.2 MG/DL Ethyl Alcohol Level 492 MG/DL MDM Medical Decision Making Medical Screen Exam Complete: Yes Emergency Medical Condition: Yes Medical Record Reviewed: Yes (pmh confirmed) Interpretation(s) CBC & BMP Diagram 10/22/16 10:17 Alcohol level significantly elevated Differential Diagnosis Alcohol intoxication, electrolyte abnormality, dehydration Narrative Course Will check blood work and dose of fluids and recheck Patient with acute intoxication. Will be monitored until clinically sober 1800 clear speech, steady gait, wanting to go. Patient will take a cab straight home. Patient denies any new complaints, all questions answered. Patient knows that follow up is incumbent on them and to return to the emergency room immediately if new or worsening symptoms develop. Patient given strict return precautions, vitals reviewed and are normal, agrees to further workup as an outpatient. no SI, hr 72, bp 118/79, 97 on room air Diagnosis Primary Impression: Alcohol dependence with acute alcoholic intoxication Qualified Code: F10.220 - Alcohol dependence with acute alcoholic intoxication , uncomplicated Referrals: [facility] for appointment Patient Instructions: General Instructions Additional Instructions: Call [facility]cer[facility] for assistance with rehabilitation, limit alcohol use Med/Other Pt SpecificInfo: No Change to Meds Disposition: 01 DISCHARGE HOME Condition: Stable Willow Fu MD Oct 22, 2016 10:35 Willow Fu MD Oct 22, 2016 10:35
[2016-10-22 10:52] LABS: BICARBONATE 25.3 MEQ/L (21.0-32.0); POTASSIUM 3.7 MEQ/L (3.5-5.1)
[2016-10-22 13:41] VITALS: BP 90/56; PULSE 48; RESP 16; O2SAT 98
[2016-10-22 16:00] VITALS: BP 112/54; PULSE 52; RESP 16; O2SAT 97
[2016-10-22 18:00] VITALS: BP 114/68; PULSE 54; RESP 16; O2SAT 98
== END 2016-10-22 18:38 | disposition home or self-care (01) ==
LOC: NEPE 09:59
DX: F10.220 Alcohol dependence with intoxication, uncomplicated (principal); Z87.891 Personal history of nicotine dependence
CPT/HCPCS: 80048; 80307; 85025; 96360; 96361; 99284; J7030

== ENCOUNTER 2016-10-23 13:14 | Emergency (ER) | payer SELFPAY ==
[2016-10-23 13:38] VITALS: BP 130/70; PULSE 83; RESP 17; TEMP 98.4; O2SAT 97
[2016-10-23] MEDS ORDERED: SODIUM CHLOR 0.9% 1000 ML INJ 1,000 ML IV ONE (13:45)
[2016-10-23] MEDS ORDERED: chlordiazePOXIDE 25 MG CAP PO ONE (13:45)
[2016-10-23] MEDS ORDERED: LORazepam 2 MG/ML VIAL IV ONE (13:45)
--- NOTE | 2016-10-23 13:47 | PD ---
HPI Chief Complaint: Alcohol/Drug Intoxication Time Seen by Provider: 13:40 Travel History International Travel<30 days: No Contact w/Intl Traveler<30days: No Traveled to known affect area: No History of Present Illness HPI 61 y/o male brought in by EMS under the March Act. Patient was sleeping and intoxicated in front of the local [employer]. Patient has stable V/S and EKG was unremarkable. BS 132. Patient poor historian due to intoxication. no Signs or complaints of trauma. Patient allergic to PCN, Prozac. PFSH Past Medical History Medical History: Unable to Obtain Anxiety: Yes Depression: Yes Cardiovascular Problems: Yes (ANGINA ) Diabetes: No Dialysis: No Diminished Hearing: No Hepatitis: Yes Psychiatric: Yes Immunizations Current: Yes Seizures: Yes (DUE TO ALCOHOL WITHDRAWL) Past Surgical History Oral Surgery: Yes Other Surgery: Yes (UNKNOWN BACK SURGERY) Social History Alcohol Use: Yes Tobacco Use: No (QUIT AFTER 45 YEARS) Substance Use: Yes Allergies-Medications (Allergen,Severity, Reaction): Coded Allergies: Prozac (Unverified Allergy, Mild, Rash, 10/23/16) Penicillin (Verified Allergy, Unknown, 10/23/16) Reported Meds & Prescriptions Reported Meds & Active Scripts Active Reported Ativan (Lorazepam) 2 Mg Tab 2 Mg PO Q4-6H PRN Review of Systems ROS Limitations: Intoxication Except as stated in HPI: all other systems reviewed are Neg General / Constitutional: No: Fever Eyes: No: Visual changes HENT: No: Headaches Cardiovascular: No: Chest Pain or Discomfort Respiratory: No: Shortness of Breath Gastrointestinal: No: Abdominal Pain Genitourinary: No: Dysuria Musculoskeletal: No: Pain Skin: No Rash Neurologic: No: Weakness Psychiatric: No: Depression Endocrine: No: Polydipsia Hematologic/Lymphatic: No: Easy Bruising Physical Exam Exam Limitations: Intoxication Narrative GENERAL: patient appears intoxicated and in no acute distress. SKIN: Warm and dry. Normal Color. Normal Turgor. No Signs trauma. HEAD: Atraumatic. Normocephalic. EYES: Pupils equal and round. No scleral icterus. No injection or drainage. ENT: No nasal bleeding or discharge. Mucous membranes pink and moist. Pharynx clear. NECK: Trachea midline. Supple and Non-tender. CARDIOVASCULAR: Regular rate and rhythm. RESPIRATORY: No accessory muscle use. Clear to auscultation. Breath sounds equal bilaterally. GASTROINTESTINAL: Abdomen soft, non-tender, nondistended. Hepatic and splenic margins not palpable. MUSCULOSKELETAL: Extremities without clubbing, cyanosis, or edema. No obvious deformities. NEUROLOGICAL: Awake and alert. No obvious cranial nerve deficits. Motor grossly within normal limits. Five out of 5 muscle strength in the arms and legs. Normal speech. PSYCHIATRIC: Intoxicated. Denies Suicidal or homicidal ideation. Data Data Last Documented VS Vital Signs Date Time Temp Pulse Resp B/P Pulse Ox O2 Delivery O2 Flow Rate FiO2 10/23/16 13:38 98.4 83 17 130/70 97 Orders Complete Blood Count With Diff (10/23/16 13:37) Comprehensive Metabolic Panel (10/23/16 13:37) Iv Access Insert/Monitor (10/23/16 13:37) Lorazepam Inj (Ativan Inj) (10/23/16 13:45) Chlordiazepoxide (Librium) (10/23/16 13:45) Sodium Chlor 0.9% 1000 Ml Inj (Ns 1000 M (10/23/16 13:45) Lipase (10/23/16 14:57) Labs Laboratory Tests Test 10/23/16 14:57 White Blood Count 4.1 TH/MM3 Red Blood Count 3.67 MIL/MM3 Hemoglobin 11.9 GM/DL Hematocrit 36.5 % Mean Corpuscular Volume 99.5 FL Mean Corpuscular Hemoglobin 32.6 PG Mean Corpuscular Hemoglobin 32.7 % Concent Red Cell Distribution Width 15.0 % Platelet Count 138 TH/MM3 Mean Platelet Volume 6.4 FL Neutrophils (%) (Auto) 53.0 % Lymphocytes (%) (Auto) 35.4 % Monocytes (%) (Auto) 7.9 % Eosinophils (%) (Auto) 0.8 % Basophils (%) (Auto) 2.9 % Neutrophils # (Auto) 2.2 TH/MM3 Lymphocytes # (Auto) 1.4 TH/MM3 Monocytes # (Auto) 0.3 TH/MM3 Eosinophils # (Auto) 0.0 TH/MM3 Basophils # (Auto) 0.1 TH/MM3 CBC Comment DIFF FINAL Differential Comment Sodium Level 153 MEQ/L Potassium Level 3.9 MEQ/L Chloride Level 121 MEQ/L Carbon Dioxide Level 25.5 MEQ/L Anion Gap 7 MEQ/L Blood Urea Nitrogen 8 MG/DL Creatinine 0.75 MG/DL Estimat Glomerular Filtration 107 ML/MIN Rate Random Glucose 86 MG/DL Calcium Level 7.5 MG/DL Total Bilirubin 0.3 MG/DL Aspartate Amino Transf 114 U/L (AST/SGOT) Alanine Aminotransferase 105 U/L (ALT/SGPT) Alkaline Phosphatase 71 U/L Total Protein 6.9 GM/DL Albumin 3.3 GM/DL Lipase 395 U/L [facility] Medical Decision Making Medical Screen Exam Complete: Yes Emergency Medical Condition: Yes Differential Diagnosis ETOH intoxication. [place] Act. ETOH withdrawal risk. Narrative Course Patient appears intoxicated but medically stable at time of exam. Labs ordered including CBC, CMP and lipase. IV access is continued, and patient given a 1 L normal saline bolus. Patient is given 1 mg lorazepam IV as well as 25 mg Librium by mouth. CBC shows mild anemia of hemoglobin 11.9 and hematocrit 36.5. Platelet count slightly low at 138. CMP shows sodium 153, potassium 3.9, chloride 121, calcium 7.5, AST is 114, ALT is 105, albumin 3.3, lipase is 395. 1700 hrs. patient is resting comfortably. 2000 hrs. patient is felt stable for discharge. Diagnosis Primary Impression: Alcohol dependence with acute alcoholic intoxication Qualified Code: F10.220 - Alcohol dependence with acute alcoholic intoxication , uncomplicated Referrals: [facility] Patient Instructions: Abuse of Alcohol (ED), General Instructions Med/Other Pt SpecificInfo: No Meds Exist/No RX given Condition: Stable Dion Packer Oct 23, 2016 13:47 Dion Packer Oct 23, 2016 13:47
[2016-10-23 15:20] LABS: AUTOMATED NEUTROPHIL # 2.2 TH/MM3 (1.8-7.7); BASOPHIL # 0.1 TH/MM3 (0-0.2); BASOPHIL % 2.9 % (0.0-2.0); EOSINOPHIL % 0.8 % (0.0-4.0); HEMATOCRIT 36.5 % (39.0-51.0); HEMO FLAGS DIFF FINAL; LYMPH % 35.4 % (9.0-44.0); LYMPHOCYTE # 1.4 TH/MM3 (1.0-4.8); MEAN CELL VOLUME 99.5 FL (80.0-100.0); MEAN CORPUSCULAR HEMOGLOBIN 32.6 PG (27.0-34.0); MEAN CORPUSCULAR HGB CONC 32.7 % (32.0-36.0); MONO % 7.9 % (0.0-8.0); PLATELET COUNT 138 TH/MM3 (150-450); RED BLOOD COUNT 3.67 MIL/MM3 (4.50-5.90); WHITE BLOOD COUNT 4.1 TH/MM3 (4.0-11.0)
[2016-10-23 15:36] LABS: ANION GAP 7 MEQ/L (5-15); AST (GOT) 114 U/L (15-37); BICARBONATE 25.5 MEQ/L (21.0-32.0); BLOOD UREA NITROGEN 8 MG/DL (7-18); CHLORIDE 121 MEQ/L (98-107); GLOMERULAR FILTRATION RATE 107 ML/MIN (>89); POTASSIUM 3.9 MEQ/L (3.5-5.1); SODIUM (NA) 153 MEQ/L (136-145)
[2016-10-23 15:40] LABS: ALKALINE PHOSPHATASE 71 U/L (45-117); ALT (GPT) 105 U/L (12-78); TOTAL BILIRUBIN ADULT 0.3 MG/DL (0.2-1.0)
== END 2016-10-23 20:34 | disposition home or self-care (01) ==
LOC: NEDAMB 13:14
DX: F10.220 Alcohol dependence with intoxication, uncomplicated (principal)
CPT/HCPCS: 80053; 83690; 85025; 96360; 99284; J7030

== ENCOUNTER 2016-10-24 16:29 | Emergency (ER) | payer SELFPAY ==
[~2016-10-24] VITALS: Ht 182.9 cm; Wt 75.0 kg
[2016-10-24 16:30] VITALS: BP 134/81; PULSE 89; RESP 16; TEMP 98.2; O2SAT 99
--- NOTE | 2016-10-24 19:42 | PD ---
HPI Chief Complaint: Alcohol/Drug Intoxication Time Seen by Provider: 17:49 Travel History International Travel<30 days: No Contact w/Intl Traveler<30days: No Traveled to known affect area: No History of Present Illness HPI 61-year-old male came to the emergency room looking for alcohol detox. Patient says that he used to be an alcoholic but was clean for 8 months. However he relapsed and started drinking for past 2 days. He has been binge drinking. His and girlfriend recommended that he should come to the emergency room. Upon asking patient [facility] Patient is answering questions appropriately. However you can smell alcohol in his breath. He refused any suicidal ideations. Vital signs were otherwise stable. [facility] Past Medical History Narrative Medical List of his past medical, surgical, social and family history reviewed from the nursing note. Anxiety: Yes Depression: Yes Cardiovascular Problems: Yes (ANGINA ) Diabetes: No Dialysis: No Diminished Hearing: No Gastrointestinal Disorders: No Hepatitis: Yes Hypertension: No Implanted Vascular Access Dvce: No Psychiatric: Yes Immunizations Current: Yes Seizures: Yes (DUE TO ALCOHOL WITHDRAWL) Past Surgical History Oral Surgery: Yes Other Surgery: Yes (UNKNOWN BACK SURGERY) Social History Alcohol Use: Yes Tobacco Use: No (QUIT AFTER 45 YEARS) Substance Use: Yes Allergies-Medications (Allergen,Severity, Reaction): Coded Allergies: Prozac (Unverified Allergy, Mild, Rash, 10/24/16) Penicillin (Verified Allergy, Unknown, 10/24/16) Comments List of his allergies reviewed from the nursing note. Reported Meds & Prescriptions Reported Meds & Active Scripts Active Reported Ativan (Lorazepam) 2 Mg Tab 2 Mg PO Q4-6H PRN Narrative Medication List of his home medications reviewed from the nursing note. Review of Systems Except as stated in HPI: all other systems reviewed are Neg Physical Exam Narrative GENERAL: Intoxicated but alert, answering questions, disheveled, poor skin hygiene, no obvious distress SKIN: Focused skin assessment warm/dry. HEAD: Atraumatic. Normocephalic. EYES: Pupils equal and round. No scleral icterus. No injection or drainage. ENT: No nasal bleeding or discharge. Mucous membranes pink and moist. NECK: Trachea midline. No JVD. CARDIOVASCULAR: Regular rate and rhythm. No murmur appreciated. RESPIRATORY: No accessory muscle use. Clear to auscultation. Breath sounds equal bilaterally. GASTROINTESTINAL: Abdomen soft, non-tender, nondistended. Hepatic and splenic margins not palpable. MUSCULOSKELETAL: No obvious deformities. No clubbing. No cyanosis. No edema. NEUROLOGICAL: Awake and alert and intoxicated. No obvious cranial nerve deficits. Motor grossly within normal limits. Normal speech. PSYCHIATRIC: Appropriate mood and affect; insight and judgment normal. Data Data Last Documented VS Vital Signs Date Time Temp Pulse Resp B/P Pulse Ox O2 Delivery O2 Flow Rate FiO2 10/24/16 17:45 88 20 98 Room Air 10/24/16 16:30 98.2 134/81 Orders Alcohol (Ethanol) (10/24/16 18:16) Diet Regular Basic (10/24/16 Dinner) Labs Laboratory Tests Test 10/24/16 18:25 Ethyl Alcohol Level 340 MG/DL [facility] Medical Decision Making Medical Screen Exam Complete: Yes Emergency Medical Condition: Yes Medical Record Reviewed: Yes Differential Diagnosis Acute alcohol intoxication, binge drinking Narrative Course 7 PM patient wanted to go home. The alcohol level was still pending. Patient seems to be clinically sober at this point. Procedures EKG Prior to Arrival: No Diagnosis Primary Impression: Alcohol consumption binge drinking Additional Instructions: Please return to the ER if the condition worsens or any other new concerns. Otherwise go to [facility] in the morning to be admitted for alcohol rehabilitation. Disposition: 01 DISCHARGE HOME Condition: Stable Mirian Diaz MD Oct 24, 2016 19:42
== END 2016-10-24 19:47 | disposition home or self-care (01) ==
LOC: NEPD 16:29
DX: F10.129 Alcohol abuse with intoxication, unspecified (principal); Y90.8 Blood alcohol level of 240 mg/100 ml or more
CPT/HCPCS: 80307; 99283

== ENCOUNTER 2016-10-26 19:02 | Inpatient (IN) | payer SELFPAY ==
[~2016-10-26] VITALS: Ht 182.9 cm; Wt 72.0 kg
[2016-10-26] MEDS ORDERED: SODIUM CHLOR 0.9% 1000 ML INJ 1,000 ML IV SCH (19:25)
[2016-10-26] MEDS ORDERED: methylPREDNISolone SOD SUCC 125 MG/2 ML VIAL IV ONE (19:30)
[2016-10-26] MEDS ORDERED: AZITHROMYCIN INJ 500 MG in SODIUM CHLOR 0.9% 250 ML INJ 250 ML IV ONE (19:30)
[2016-10-26] MEDS ORDERED: SODIUM CHLORIDE 0.9% FLUSH 5 ML FLUSH IV FLUSH PRN (19:30)
[2016-10-26 19:36] VITALS: BP 133/89; PULSE 114; RESP 18; TEMP 98.3; O2SAT 95
--- NOTE | 2016-10-26 19:36 | PD ---
HPI Chief Complaint: Respiratory Symptoms Time Seen by Provider: 19:30 Travel History International Travel<30 days: No Contact w/Intl Traveler<30days: No History of Present Illness HPI Patient is a 61-year-old male presenting to the emergency department for evaluation after witnessed choking episode. Patient was observed choking by an off-duty medic who attempted the Heimlich maneuver and called EMS. The Heimlich maneuver failed, when EMS arrived on scene 5 large pieces of chicken were removed from patient's airway with alligator forceps. Per EMS patient was blue, took between 4-5 minutes to get the chicken out. Per EMS there was no loss of consciousness during this episode. Patient was initially unable to speak clearly. He presented to the emergency department on a nonrebreather, O2 sats on room air were between 88 and 90%. Patient had an episode of incontinence of stool during this period. Patient's past medical history significant for EtOH abuse, atrial fibrillation. He does endorse alcohol use today but states he doesn't drink on a daily basis. He also endorses a history of tobacco use, quitting 2 years ago. PFSH Past Medical History Atrial Fibrillation: Yes Anxiety: Yes Depression: Yes Diabetes: No Dialysis: No Diminished Hearing: No Gastrointestinal Disorders: No Hepatitis: Yes Hypertension: No Implanted Vascular Access Dvce: No Immunizations Current: Yes Seizures: Yes (DUE TO ALCOHOL WITHDRAWL) Past Surgical History Oral Surgery: Yes Other Surgery: Yes (UNKNOWN BACK SURGERY) Social History Alcohol Use: Yes Tobacco Use: No (QUIT AFTER 45 YEARS) Substance Use: Yes Allergies-Medications (Allergen,Severity, Reaction): Coded Allergies: Prozac (Unverified Allergy, Mild, Rash, 10/24/16) Penicillin (Verified Allergy, Unknown, 10/24/16) Reported Meds & Prescriptions Reported Meds & Active Scripts Active Reported Ativan (Lorazepam) 2 Mg Tab 2 Mg PO Q4-6H PRN Review of Systems ROS Limitations: Intoxication Except as stated in HPI: all other systems reviewed are Neg HENT: No: Headaches Cardiovascular: No: Chest Pain or Discomfort Respiratory: No: Shortness of Breath Gastrointestinal: No: Nausea, Abdominal Pain Musculoskeletal: No: Myalgias Neurologic: No: Dizziness, Focal Abnormalities Psychiatric: Positive: Depression, Substance Abuse Physical Exam Exam Limitations: Intoxication Narrative GENERAL: Well-developed, disheveled, alert male. Resting comfortably in no acute distress. Patient smells of alcohol. SKIN: Focused skin assessment warm/dry. HEAD: Atraumatic. Normocephalic. EYES: Pupils equal and round. No scleral icterus. No injection or drainage. ENT: No nasal bleeding or discharge. Mucous membranes pink and moist. NECK: Trachea midline. No JVD. CARDIOVASCULAR: Tachycardic. No murmur appreciated. RESPIRATORY: No accessory muscle use. Coarse breath sounds in bilateral lower lung eduardo. GASTROINTESTINAL: Abdomen soft, non-tender, nondistended. Hepatic and splenic margins not palpable. MUSCULOSKELETAL: No obvious deformities. No clubbing. No cyanosis. No edema. NEUROLOGICAL: Awake and alert. No obvious cranial nerve deficits. Motor grossly within normal limits. Normal speech. PSYCHIATRIC: Appropriate mood and affect; insight and judgment normal. Data Data Last Documented VS Vital Signs Date Time Temp Pulse Resp B/P Pulse Ox O2 Delivery O2 Flow Rate FiO2 10/26/16 19:46 103 18 95 Nasal Cannula 3 10/26/16 19:36 98.3 133/89 Orders Electrocardiogram (10/26/16 19:25) Complete Blood Count With Diff (10/26/16 19:25) Comprehensive Metabolic Panel (10/26/16 19:25) Creatine Kinase (Cpk) (10/26/16 19:25) Prothrombin Time / Inr (Pt) (10/26/16 19:25) Act Partial Throm Time (Ptt) (10/26/16 19:25) Chest, Single Ap (10/26/16 19:25) Ct Brain W/O Iv Contrast(Rout) (10/26/16 19:25) Blood Glucose (10/26/16 19:25) Ecg Monitoring (10/26/16 19:25) Iv Access Insert/Monitor (10/26/16 19:25) Oximetry (10/26/16 19:25) Sodium Chloride 0.9% Flush (Ns Flush) (10/26/16 19:30) Sodium Chlor 0.9% 1000 Ml Inj (Ns 1000 M (10/26/16 19:25) Alcohol (Ethanol) (10/26/16 19:25) Azithromycin Inj (Zithromax Inj) (10/26/16 19:30) Albuterol-Ipratropium Neb (Duoneb Neb) (10/26/16 19:30) Methylprednisolone So Succ Inj (Solumedr (10/26/16 19:30) Clindamycin Inj (Cleocin Inj) (10/26/16 20:30) Diltiazem Inj (Cardizem Inj) (10/26/16 20:45) Sodium Chlor 0.9% 1000 Ml Inj (Ns 1000 M (10/26/16 21:00) Diltiazem Cd (Cardizem Cd) (10/26/16 21:00) Admit Order (Ed Use Only) (10/26/16 21:02) Labs Laboratory Tests Test 10/26/16 20:00 White Blood Count 4.1 TH/MM3 Red Blood Count 4.34 MIL/MM3 Hemoglobin 14.4 GM/DL Hematocrit 41.8 % Mean Corpuscular Volume 96.3 FL Mean Corpuscular Hemoglobin 33.1 PG Mean Corpuscular Hemoglobin 34.3 % Concent Red Cell Distribution Width 14.5 % Platelet Count 69 TH/MM3 Mean Platelet Volume 6.6 FL Neutrophils (%) (Auto) 69.8 % Lymphocytes (%) (Auto) 20.0 % Monocytes (%) (Auto) 8.2 % Eosinophils (%) (Auto) 0.9 % Basophils (%) (Auto) 1.1 % Neutrophils # (Auto) 2.9 TH/MM3 Lymphocytes # (Auto) 0.8 TH/MM3 Monocytes # (Auto) 0.3 TH/MM3 Eosinophils # (Auto) 0.0 TH/MM3 Basophils # (Auto) 0.0 TH/MM3 CBC Comment AUTO DIFF Differential Comment AUTO DIFF CONFIRMED Platelet Estimate LOW Platelet Morphology Comment NORMAL Prothrombin Time 11.1 SEC Prothromb Time International 1.0 RATIO Ratio Activated Partial 27.1 SEC Thromboplast Time Sodium Level 150 MEQ/L Potassium Level 3.5 MEQ/L Chloride Level 114 MEQ/L Carbon Dioxide Level 23.5 MEQ/L Anion Gap 13 MEQ/L Blood Urea Nitrogen 4 MG/DL Creatinine 0.76 MG/DL Estimat Glomerular Filtration 105 ML/MIN Rate Random Glucose 120 MG/DL Calcium Level 7.6 MG/DL Total Bilirubin 0.7 MG/DL Aspartate Amino Transf 252 U/L (AST/SGOT) Alanine Aminotransferase 199 U/L (ALT/SGPT) Alkaline Phosphatase 97 U/L Total Creatine Kinase 146 U/L Total Protein 7.7 GM/DL Albumin 3.7 GM/DL Ethyl Alcohol Level 401 MG/DL MDM Medical Decision Making Medical Screen Exam Complete: Yes Emergency Medical Condition: Yes Interpretation(s) Last Impressions Head CT 10/26/161924 Signed Impressions: Service Date/Time: October 19:40 - CONCLUSION: Normal examination. Stephen Kyle MD Chest X-Ray 10/26/161924 Signed Impressions: Service Date/Time: October 19:52 - CONCLUSION: Right perihilar infiltrate Stephen Kyle MD Laboratory Tests Test 10/26/16 20:00 White Blood Count 4.1 TH/MM3 Red Blood Count 4.34 MIL/MM3 Hemoglobin 14.4 GM/DL Hematocrit 41.8 % Mean Corpuscular Volume 96.3 FL Mean Corpuscular Hemoglobin 33.1 PG Mean Corpuscular Hemoglobin 34.3 % Concent Red Cell Distribution Width 14.5 % Platelet Count 69 TH/MM3 Mean Platelet Volume 6.6 FL Neutrophils (%) (Auto) 69.8 % Lymphocytes (%) (Auto) 20.0 % Monocytes (%) (Auto) 8.2 % Eosinophils (%) (Auto) 0.9 % Basophils (%) (Auto) 1.1 % Neutrophils # (Auto) 2.9 TH/MM3 Lymphocytes # (Auto) 0.8 TH/MM3 Monocytes # (Auto) 0.3 TH/MM3 Eosinophils # (Auto) 0.0 TH/MM3 Basophils # (Auto) 0.0 TH/MM3 CBC Comment AUTO DIFF Prothrombin Time 11.1 SEC Prothromb Time International 1.0 RATIO Ratio Activated Partial 27.1 SEC Thromboplast Time Sodium Level 150 MEQ/L Potassium Level 3.5 MEQ/L Chloride Level 114 MEQ/L Carbon Dioxide Level 23.5 MEQ/L Anion Gap 13 MEQ/L Blood Urea Nitrogen 4 MG/DL Creatinine 0.76 MG/DL Estimat Glomerular Filtration 105 ML/MIN Rate Random Glucose 120 MG/DL Calcium Level 7.6 MG/DL Total Bilirubin 0.7 MG/DL Aspartate Amino Transf 252 U/L (AST/SGOT) Alanine Aminotransferase 199 U/L (ALT/SGPT) Alkaline Phosphatase 97 U/L Total Creatine Kinase 146 U/L Total Protein 7.7 GM/DL Albumin 3.7 GM/DL Ethyl Alcohol Level 401 MG/DL Vital Signs Date Time Temp Pulse Resp B/P Pulse Ox O2 Delivery O2 Flow Rate FiO2 10/26/16 19:46 103 18 95 Nasal Cannula 3 10/26/16 19:36 98.3 114 18 133/89 95 Differential Diagnosis Aspiration versus hypoxic brain injury versus substance abuse versus electrolyte abnormality versus cardiac arrhythmia versus other Narrative Course Patient is a 61-year-old male presenting after a witnessed episode of choking.. Patient's initial O2 sats on room air were between 88-90%. Patient is on O2 at 2 L with a sat of 93%. Patient placed on telemetry monitoring, continuous pulse oximetry. DuoNeb and Solu-Medrol ordered. CT scan of the brain is negative for acute abnormality Chest x-ray shows right perihilar infiltrate. Azithromycin and clindamycin IV ordered. EKG shows A. fib with RVR with a rate of 158. Patient given Cardizem 20mg IV 1 dose, heart rate currently at 100. CBC is unremarkable Chemistry sodium is 150, AST 252, ALT 199 Alcohol level is 401 Coags are unremarkable Second liter of IV fluid ordered. Cardizem Cd 120 mg PO X [address] Kim's request. Pt did not receive oral dose of Cardizem, nurse notified that pt's HR was elevated again in the 130-140's. Pt placed on Cardizem gtt. Dr. Kim notified Dr. Toledo of this change. Dr. Kim spoke with Dr. Toledo who accepted admission. Diagnosis Primary Impression: Aspiration pneumonia Qualified Code: J69.0 - Aspiration pneumonia of right upper lobe, unspecified aspiration pneumonia type Additional Impressions: Atrial fibrillation with RVR Alcohol abuse with intoxication Aspiration into airway Qualified Code: T17.908A - Aspiration into airway, initial encounter Hypernatremia Admitting Information Admitting Physician Requests: Admit Condition: Stable Erica Jean Baptiste [facility] Oct 26, 2016 19:36
[2016-10-26 19:46] VITALS: PULSE 103; RESP 18; O2SAT 95
--- NOTE | 2016-10-26 19:58 | RADRPT ---
EXAM DATE/TIME: 10/26/2016 19:40 [facility] COMPARISON: CT BRAIN W/O CONTRAST, October 09, 2016, 5:47. INDICATIONS : Altered mental status. RADIATION DOSE: 43.56 CTDIvol (mGy) MEDICAL HISTORY : Seizures. SURGICAL HISTORY : None. ENCOUNTER: Initial ACUITY: 1 day PAIN SCALE: 0/10 LOCATION: cranial TECHNIQUE: Multiple contiguous axial images were obtained of the head. Using automated exposure control and adj ustment of the mA and/or kV according to patient size, radiation dose was kept as low as reasonably a chievable to obtain optimal diagnostic quality images. FINDINGS: CEREBRUM: The ventricles are normal for age. No evidence of midline shift, mass lesion, hemorrhage or acute in farction. No extra-axial fluid collections are seen. POSTERIOR FOSSA: The cerebellum and brainstem are intact. The 4th ventricle is midline. The cerebellopontine angle i s unremarkable. EXTRACRANIAL: The visualized portion of the orbits is intact. SKULL: The calvaria is intact. No evidence of skull fracture. CONCLUSION: Normal examination. Stephen Kyle MD on October 26, 2016 at 19:54 Board Certified Radiologist. This report was verified electronically.
[2016-10-26] MEDS: RESP: ALBUTEROL 2.5 MG/IPRATROPIUM 0.5 MG NEB (SCH) INH ×2 (20:08→20:09)
[2016-10-26 20:13] LABS: AUTOMATED NEUTROPHIL # 2.9 TH/MM3 (1.8-7.7); BASOPHIL % 1.1 % (0.0-2.0); EOSINOPHIL % 0.9 % (0.0-4.0); HEMATOCRIT 41.8 % (39.0-51.0); LYMPHOCYTE # 0.8 TH/MM3 (1.0-4.8); MEAN CELL VOLUME 96.3 FL (80.0-100.0); MEAN CORPUSCULAR HEMOGLOBIN 33.1 PG (27.0-34.0); MEAN CORPUSCULAR HGB CONC 34.3 % (32.0-36.0); MONO % 8.2 % (0.0-8.0); NEUT % 69.8 % (16.0-70.0); PLATELET COUNT 69 TH/MM3 (150-450); RED BLOOD COUNT 4.34 MIL/MM3 (4.50-5.90); RED CELL DISTRIBUTION WIDTH 14.5 % (11.6-17.2); WHITE BLOOD COUNT 4.1 TH/MM3 (4.0-11.0)
--- NOTE | 2016-10-26 20:13 | RADRPT ---
EXAM DATE/TIME: 10/26/2016 19:52 [facility] COMPARISON: CHEST SINGLE AP, October 09, 2016, 3:23. INDICATIONS : Aspiration. MEDICAL HISTORY : None. SURGICAL HISTORY : None. ENCOUNTER: Initial ACUITY: 1 day PAIN SCORE: 0/10 LOCATION: Bilateral chest FINDINGS: There is mild right perihilar infiltrate present. Left lung is grossly clear. Cardiac contours are sa tisfactory. CONCLUSION: Right perihilar infiltrate Stephen Kyle MD on October 26, 2016 at 20:10 Board Certified Radiologist. This report was verified electronically.
[2016-10-26 20:19] LABS: HEMO FLAGS AUTO DIFF
[2016-10-26 20:28] LABS: APTT (PATIENT) 27.1 SEC (24.3-30.1); PROTHROMBIN TIME - PATIENT 11.1 SEC (9.8-11.6)
[2016-10-26] MEDS ORDERED: CLINDAMYCIN INJ 900 MG in SODIUM CHLORIDE 0.9% INJ 100 ML IV ONE (20:30)
[2016-10-26 20:37] LABS: ANION GAP 13 MEQ/L (5-15); AST (GOT) 252 U/L (15-37); BICARBONATE 23.5 MEQ/L (21.0-32.0); BLOOD UREA NITROGEN 4 MG/DL (7-18); CHLORIDE 114 MEQ/L (98-107); GLOMERULAR FILTRATION RATE 105 ML/MIN (>89); POTASSIUM 3.5 MEQ/L (3.5-5.1); SODIUM (NA) 150 MEQ/L (136-145)
[2016-10-26 20:38] LABS: ALT (GPT) 199 U/L (12-78)
[2016-10-26 20:40] LABS: ALKALINE PHOSPHATASE 97 U/L (45-117); CREATINE KINASE 146 U/L (39-308); TOTAL BILIRUBIN ADULT 0.7 MG/DL (0.2-1.0)
[2016-10-26] MEDS ORDERED: DILTIAZEM HCL 25 MG/5 ML VIAL IV ONE (20:45)
[2016-10-26 21:00] VITALS: BP 125/91; PULSE 112; O2SAT 94
[2016-10-26] MEDS ORDERED: DILTIAZEM-CD 120 MG CAP ER PO ONE (21:00)
[2016-10-26] MEDS ORDERED: SODIUM CHLOR 0.9% 1000 ML INJ 1,000 ML IV ONE (21:00)
[2016-10-26 21:03] LABS: PLATELET ESTIMATE SMEAR LOW (NORMAL); PLATELET MORPHOLOGY NORMAL (NORMAL); SCAN/DIFF AUTO DIFF CONFIRMED
--- NOTE | 2016-10-26 21:10 | HHI.HP ---
HPI Service [facility] Primary Care Physician No Primary Care Physician Admission Diagnosis aspiration pneumonia, A. fib with RVR, EtOH Diagnoses: (1) Hypoxia Diagnosis: Principal (2) Atrial fibrillation with RVR Diagnosis: Principal (3) PNA (pneumonia) Diagnosis: Principal (4) Alcohol abuse Diagnosis: Principal (5) Hypernatremia Diagnosis: Principal (6) Thrombocytopenia Diagnosis: Principal Travel History International Travel<30 Days: No Contact w/Intl Traveler <30 Da: No Traveled to Known Affected Are: No History of Present Illness This is a 61-year-old male with a PMH of Anxiety, Depression, Alcohol Abuse and Alcohol Related Seizure was brought to the ER by EMS after patient was found choking. Witnessed by off-duty medic who attempted successful Heimlich maneuver w/ removal of 5 large pieces of chicken. O2 sat upon EMS arrival 88% on RA. Similar episode on previous admit 10/08-10/12/16 after choking on chicken , s/p prolonged hypoxia requiring intubation at that time. On arrival, BP 133/ 89, HR 114, O2 sat 95% on RA, Afebrile. O2 sats have remained stable at 94-95% on 3L NC w/ no respiratory distress or airway compromise. While in ER, pt noted to have episode of A-fib w/ RVR, HR 120-130's, s/p Cardizem x1 and ultimately started on Cardizem gtt. WBC normal. Platelets 69, previously 138 on 10/23/16. Na 150. LFTs elevated, similar to previous. INR 1.0. Alcohol 401. CXR with right perihilar infiltrate. CT Head normal. S/p Clinda/Zithro in ER. Review of Systems Except as stated in HPI: all other systems reviewed are Neg ROS: 14 point review of systems otherwise negative. Past Family Social History Past Medical History PMH: Anxiety, Depression, Alcohol Abuse and Alcohol Related Seizure Past Surgical History PAST SURGICAL HISTORY: Unknown Allergies: Coded Allergies: Prozac (Unverified Allergy, Mild, Rash, 10/24/16) Penicillin (Verified Allergy, Unknown, 10/24/16) Family History PAST FAMILY HISTORY: Reviewed. No h/o DM or CAD Social History PAST SOCIAL HISTORY: Drinks daily, unable to quantify. Negative for tobacco. History of substance abuse. Physical Exam Vital Signs Vital Signs Date Time Temp Pulse Resp B/P Pulse Ox O2 Delivery O2 Flow Rate FiO2 10/26/16 19:46 103 18 95 Nasal Cannula 3 10/26/16 19:36 98.3 114 18 133/89 95 Physical Exam PE: GENERAL: Middle-aged white male in no acute distress, disheveled. HEENT: PERRLA, EOMI. No scleral icterus or conjunctival pallor. No lid lag or facial droop. CARDIOVASCULAR: Irregularly irregular, in A. fib. No obvious murmurs to auscultation. No chest tenderness to palpation. RESPIRATORY: No obvious rhonchi or wheezing. Clear to auscultation. Breath sounds equal bilaterally. GASTROINTESTINAL: Abdomen soft, non-tender, nondistended. BS normal. MUSCULOSKELETAL: Extremities without clubbing, cyanosis, or edema. No obvious deformities. NEUROLOGICAL: Awake, alert and oriented x4. No focal neurologic deficits. Moving both upper and lower extremities spontaneously. Laboratory Laboratory Tests Test 10/26/16 20:00 White Blood Count 4.1 Red Blood Count 4.34 Hemoglobin 14.4 Hematocrit 41.8 Mean Corpuscular Volume 96.3 Mean Corpuscular Hemoglobin 33.1 Mean Corpuscular Hemoglobin 34.3 Concent Red Cell Distribution Width 14.5 Platelet Count 69 Mean Platelet Volume 6.6 Neutrophils (%) (Auto) 69.8 Lymphocytes (%) (Auto) 20.0 Monocytes (%) (Auto) 8.2 Eosinophils (%) (Auto) 0.9 Basophils (%) (Auto) 1.1 Neutrophils # (Auto) 2.9 Lymphocytes # (Auto) 0.8 Monocytes # (Auto) 0.3 Eosinophils # (Auto) 0.0 Basophils # (Auto) 0.0 CBC Comment AUTO DIFF Differential Comment AUTO DIFF CONFIRMED Platelet Estimate LOW Platelet Morphology Comment NORMAL Prothrombin Time 11.1 Prothromb Time International 1.0 Ratio Activated Partial 27.1 Thromboplast Time Sodium Level 150 Potassium Level 3.5 Chloride Level 114 Carbon Dioxide Level 23.5 Anion Gap 13 Blood Urea Nitrogen 4 Creatinine 0.76 Estimat Glomerular Filtration 105 Rate Random Glucose 120 Calcium Level 7.6 Total Bilirubin 0.7 Aspartate Amino Transf 252 (AST/SGOT) Alanine Aminotransferase 199 (ALT/SGPT) Alkaline Phosphatase 97 Total Creatine Kinase 146 Total Protein 7.7 Albumin 3.7 Ethyl Alcohol Level 401 Result Diagram: 10/26/16199910/26/161999 Assessment and Plan Problem List: (1) Hypoxia ICD Code: R09.02 Status: Acute (2) Atrial fibrillation with RVR ICD Code: I48.91 Status: Acute (3) PNA (pneumonia) ICD Code: J18.9 Status: Acute (4) Hypernatremia ICD Code: E87.0 Status: Acute (5) Alcohol abuse ICD Code: F10.10 Status: Chronic (6) Thrombocytopenia ICD Code: D69.6 Status: Acute Assessment and Plan A/P: 1. Hypoxia: Transient episode of hypoxia secondary to choking, s/p Heimlich maneuver, O2 sat 88% on RA upon EMS arrival, O2 sat has remained stable while in ER at 94-96% on 2-3L NC. Previous admit for similar circumstances w/ prolonged hypoxia requiring intubation. Currently stable. Will monitor closely. 2. Afib: w/ RVR. New Onset. Possibly triggered by hypoxia. S/p Cardizem x1 , currently on Cardizem gtt. Admit to [facility]IC, continue Cardizem, check serial cardiac enzymes, monitor on telemetry. Cardiology consult for further eval. Pt poor candidate for anticoagulation in light of thrombocytopenia and chronic alcohol abuse. 3. PNA: CXR w/ perihilar infiltrate, images reviewed by me. S/p Clinda/ Zithro in ER, will continue w/ IV Abx. 4. Hypernatremia: Na 150, likely secondary to dehydration. IVF, repeat labs in am. 5. Alcohol Abuse: w/ Acute Alcohol Intoxication. Alcohol 401. CIWA, Seizure Precautions, MVT/Thiamine/Folate replacement. 6. Thrombocytopenia: Platelets 69, previously 138 on 10/23/16. No active bleeding at this time. No anticoagulation. Will monitor. Repeat labs in am. 7. DVT Prophylaxis: Pharmacologic contraindication secondary to thrombocytopenia. 8. Social work for d/c planning as needed. 9. Case discussed w/ ER physician at length Physician Certification 2 Midnight Certification Type: Admission for Inpatient Services Order for Inpatient Services The services are ordered in accordance with Medicare regulations or non- Medicare payer requirements, as applicable. In the case of services not specified as inpatient-only, they are appropriately provided as inpatient services in accordance with the 2-midnight benchmark. Estimated LOS (days): 2 days is the estimated time the patient will need to remain in the hospital, assuming treatment plan goals are met and no additional complications. Post-Hospital Plan: Not yet determined Ling Toledo MD Oct 26, 2016 21:10
[2016-10-26] MEDS ORDERED: BISACODYL 10 MG SUPP RECTAL PRN (21:15)
[2016-10-26] MEDS ORDERED: HALOPERIDOL LACTATE 5 MG/ML AMP IM PRN (21:15)
[2016-10-26] MEDS ORDERED: LORazepam 2 MG TAB PO PRN (21:15)
[2016-10-26] MEDS ORDERED: SENNOSIDES 8.6 MG TAB PO PRN (21:15)
[2016-10-26] MEDS ORDERED: LACTULOSE SYRUP 20 GM/30 ML CUP PO PRN (21:15)
[2016-10-26] MEDS ORDERED: FLUMAZENIL 0.5 MG/5 ML VIAL IV PUSH PRN (21:15)
[2016-10-26] MEDS ORDERED: THIAMINE INJ 100 MG in SODIUM CHLORIDE 0.9% INJ 100 ML IV SCH (21:15)
[2016-10-26] MEDS ORDERED: MAGNESIUM HYDROXIDE SUSP 30 ML CUP PO PRN (21:15)
[2016-10-26] MEDS ORDERED: RESP: ALBUTEROL 2.5 MG/IPRATROPIUM 0.5 MG NEB (PRN) NEB (21:15)
[2016-10-26] MEDS ORDERED: ONDANSETRON HCL 4 MG/2 ML VIAL IVP PRN (21:15)
[2016-10-26] MEDS ORDERED: LORazepam 2 MG/ML VIAL IV PUSH PRN ×3 (21:15)
[2016-10-26] MEDS ORDERED: ACETAMINOPHEN 325 MG TAB PO PRN (21:15)
[2016-10-26] MEDS ORDERED: MULTIVITAMIN INJ 10 ML, FOLIC ACID INJ 1 MG in SODIUM CHLORID 0.9% 500 ML INJ 500 ML IV SCH (21:15)
[2016-10-26] MEDS ORDERED: LORazepam 1 MG TAB PO PRN (21:15)
[2016-10-26] MEDS ORDERED: SODIUM CHLORIDE 0.9% FLUSH 10 ML FLUSH IV FLUSH PRN (21:15)
[2016-10-26] MEDS ORDERED: DILTIAZEM INJ 125 MG in SODIUM CHLORIDE 0.9% INJ 100 ML IV SCH (21:30)
[2016-10-26] MEDS: SODIUM CHLOR 0.9% 1000 ML INJ 1,000 ML IV SCH (22:57)
[2016-10-26 22:58] VITALS: BP 128/75
[2016-10-26] MEDS: LORazepam 2 MG/ML VIAL IV PUSH PRN ×2 (23:35→23:51)
[2016-10-26 23:47] VITALS: BP 125/77; PULSE 82; RESP 25; TEMP 99.3; O2SAT 95
[2016-10-26 23:48] VITALS: PULSE 82
[2016-10-27] VITALS (8 sets, daily range): BP systolic 112–135; BP diastolic 67–77; PULSE 66–93; RESP 14–44; TEMP 98.9–99; O2SAT 92–97
[2016-10-27] MEDS: LORazepam 2 MG/ML VIAL IV PUSH PRN (02:16)
[2016-10-27 03:23] LABS: BLOOD, URINE NEG (NEG); COMMENT (UR) CULT NOT INDICATED; CULTURE IF INDICATED CULT NOT INDICATED; GLUCOSE,URINE TRACE mg/dL (NEG); HYALINE CAST, URINE 4 /lpf (RARE); KETONE, URINE NEG (NEG); NITRITE,URINE NEG (NEG); SQUAMOUS EPITHELIAL CELL URINE <1 /hpf (0-5); URINE COLOR YELLOW (YELLW/STRAW)
[2016-10-27] MEDS ORDERED: CHLORHEXIDINE GLUCONATE 2 % 1 PACK (2 CLOTHS)(extra cloths) TOPICAL PRN (03:30)
[2016-10-27] MEDS ORDERED: CHLORHEXIDINE GLUCONATE 2 % 1 PACK (2 CLOTHS)(taper/protocol) TOPICAL SCH (04:00)
[2016-10-27 06:16] LABS: AUTOMATED NEUTROPHIL # 6.1 TH/MM3 (1.8-7.7); BASOPHIL % 0.2 % (0.0-2.0); LYMPHOCYTE # 0.3 TH/MM3 (1.0-4.8); MEAN CELL VOLUME 95.6 FL (80.0-100.0); MEAN CORPUSCULAR HEMOGLOBIN 32.7 PG (27.0-34.0); MEAN CORPUSCULAR HGB CONC 34.2 % (32.0-36.0); MONO % 1.7 % (0.0-8.0); NEUT % 93.1 % (16.0-70.0); PLATELET COUNT 64 TH/MM3 (150-450); RED BLOOD COUNT 3.87 MIL/MM3 (4.50-5.90); WHITE BLOOD COUNT 6.6 TH/MM3 (4.0-11.0)
[2016-10-27 06:19] LABS: HEMO FLAGS AUTO DIFF
[2016-10-27 06:39] LABS: BICARBONATE 24.4 MEQ/L (21.0-32.0); POTASSIUM 3.6 MEQ/L (3.5-5.1); TOTAL BILIRUBIN ADULT 0.8 MG/DL (0.2-1.0)
[2016-10-27 06:41] LABS: CALCIUM-PROTEIN CORRECTED 7.2 MG/DL (8.5-10.1)
[2016-10-27 07:50] LABS: OVALOCYTES 1+ (NORMAL); PLATELET ESTIMATE SMEAR LOW (NORMAL); PLATELET MORPHOLOGY NORMAL (NORMAL); SCAN/DIFF AUTO DIFF CONFIRMED
--- NOTE | 2016-10-27 07:57 | PD.CONS ---
HPI Service cardiology Consult Requested By Reason for Consult Afib RVR Primary Care Physician No Primary Care Physician History of Present Illness 61 yo WM with no prior cardiac disease who has chronic alcoholism admitted last night after he was found choking. Apparently he was given the Heimlich maneuver successfully and brought emergently to ED where he was hypoxic and found to be in afib RVR with HR in 140's. Cardizem po x 1 dose given along with ativan. He then converted to NSR and has remained so. He admits to palpitations and feeling shaky; appears he is withdrawing from etoh currently. He denies chest pain, SOB Review of Systems Consitutional: DENIES: Fever, Chills, Weight gain Respiratory: DENIES: Cough, Shortness of breath, Wheezing, Sputum production Cardiovascular: DENIES: Chest pain, Syncope Gastrointestinal: DENIES: Nausea, Vomiting, Change in bowel habits, Reflux, Bloody stools, Melena Past Family Social History Allergies: Coded Allergies: Prozac (Unverified Allergy, Mild, Rash, 10/24/16) Penicillin (Verified Allergy, Unknown, 10/24/16) Past Medical History Anxiety, Depression, Alcohol Abuse and Alcohol Related Seizure Past Surgical History : Unknown Reported Medications Reported Meds & Active Scripts Active Reported Ativan (Lorazepam) 2 Mg Tab 2 Mg PO Q4-6H PRN Active Ordered Medications Current Medications Medications (Trade) Dose Ordered Sig/Pawel Route Start Time Stop Time Status Last Admin IV Flush 2 ml 2 ml UNSCH PRN IV FLUSH 10/26/16 19:30 (Levaquin 750 Mg Premix Inj) 150 ml @ 100 mls/hr Q24H IV 10/27/16 09:00 (Symbicort 160-4.5 Inh) 2 puff Q12HR INH 10/27/16 09:00 Guaifenesin 600 mg 600 mg BID PO 10/27/16 09:00 Multivitamins 10 ml/Folic Acid 1 mg/Sodium Chloride 510.2 ml @ 125 mls/hr Q24H IV 10/26/16 21:15 10/31/16 21:14 10/27/16 00:50 (Thiamine Inj/NS Inj) 101 ml @ 100 mls/hr Q24H IV 10/26/16 21:15 10/29/16 21:14 (Vitamin B1) 100 mg DAILY PO 10/30/16 09:00 (Romazicon Inj) 0.2 mg Q1M PRN IV PUSH 10/26/16 21:15 (Ativan) 1 mg Q4H PRN PO 10/26/16 21:15 (Ativan Inj) 1 mg Q4H PRN IV PUSH 10/26/16 21:15 (Ativan) 2 mg Q2H PRN PO 10/26/16 21:15 (Ativan Inj) 2 mg Q2H PRN IV PUSH 10/26/16 21:15 (Ativan Inj) 2 mg Q1H PRN IV PUSH 10/26/16 21:15 (Ativan Inj) 2 mg Q15M PRN IV PUSH 10/26/16 21:15 10/27/16 02:16 Haloperidol Lactate 2 mg 2 mg Q15M PRN IM 10/26/16 21:15 (NS 1000 ml Inj) 1,000 ml @ 100 mls/hr Q10H IV 10/26/16 21:02 10/26/16 22:57 (NS Flush) 2 ml UNSCH PRN IV FLUSH 10/26/16 21:15 (NS Flush) 2 ml BID IV FLUSH 10/27/16 09:00 (Zofran Inj) 4 mg Q6H PRN IVP 10/26/16 21:15 (Tylenol) 650 mg Q6H PRN PO 10/26/16 21:15 (Roxicodone) 10 mg Q4H PRN PO 10/26/16 21:15 (Roxicodone) 5 mg Q4H PRN PO 10/26/16 21:15 (Deb-Colace) 1 tab BID PO 10/27/16 09:00 (Milk Of Magnesia Liq) 30 ml Q12H PRN PO 10/26/16 21:15 (Senokot) 17.2 mg Q12H PRN PO 10/26/16 21:15 (Dulcolax Supp) 10 mg DAILY PRN RECTAL 10/26/16 21:15 Lactulose 30 ml 30 ml DAILY PRN PO 10/26/16 21:15 (Cardizem Inj/NS Inj) 125 ml @ 0 mls/hr TITRATE IV 10/26/16 21:30 Miscellaneous Information Patient in critical care unit? Ass... [id number] .XX 10/27/16 03:30 10/27/16 03:30 (Chlorhexidine 2% Cloth) 3 pack DAILY@04 TOPICAL 10/27/16 04:00 10/31/16 04:01 10/27/16 04:00 (Chlorhexidine 2% Cloth) 3 pack UNSCH PRN TOPICAL 10/27/16 03:30 11/01/16 03:27 Family History father IA age 60 Social History Drinks daily, unable to quantify. Negative for tobacco. History of substance abuse. Physical Exam Vital Signs Vital Signs Date Time Temp Pulse Resp B/P Pulse Ox O2 Delivery O2 Flow Rate FiO2 10/27/16 06:00 66 10/27/16 04:00 87 10/27/16 04:00 98.9 87 31 112/69 97 10/27/16 02:00 93 10/27/16 00:00 99.0 81 23 135/77 94 10/27/16 00:00 81 10/26/16 23:48 82 10/26/16 23:47 99.3 82 25 125/77 95 10/26/16 22:58 112 16 128/75 96 10/26/16 21:00 112 125/91 94 Nasal Cannula 10/26/16 19:46 103 18 95 Nasal Cannula 3 10/26/16 19:36 98.3 114 18 133/89 95 Physical Exam EYES: Pupils equal and round. No scleral icterus. No injection or drainage. ENT: No nasal bleeding or discharge. Mucous membranes pink and moist. NECK: Trachea midline. No JVD. CARDIOVASCULAR: Regular rate and rhythm. No murmurs RESPIRATORY: No accessory muscle use. Clear to auscultation. Breath sounds equal bilaterally. MUSCULOSKELETAL: Extremities without clubbing, cyanosis, or edema. No obvious deformities. NEUROLOGICAL: Awake and alert. No obvious cranial nerve deficits. Normal speech. PSYCHIATRIC: Appropriate mood and affect; insight and judgment normal. Laboratory Laboratory Tests Test 10/26/16 10/26/16 10/26/16 10/27/16 20:00 22:30 23:30 05:11 White Blood Count 4.1 6.6 Red Blood Count 4.34 3.87 Hemoglobin 14.4 12.7 Hematocrit 41.8 37.0 Mean Corpuscular Volume 96.3 95.6 Mean Corpuscular Hemoglobin 33.1 32.7 Mean Corpuscular Hemoglobin 34.3 34.2 Concent Red Cell Distribution Width 14.5 14.0 Platelet Count 69 64 Mean Platelet Volume 6.6 7.3 Neutrophils (%) (Auto) 69.8 93.1 Lymphocytes (%) (Auto) 20.0 5.0 Monocytes (%) (Auto) 8.2 1.7 Eosinophils (%) (Auto) 0.9 0.0 Basophils (%) (Auto) 1.1 0.2 Neutrophils # (Auto) 2.9 6.1 Lymphocytes # (Auto) 0.8 0.3 Monocytes # (Auto) 0.3 0.1 Eosinophils # (Auto) 0.0 0.0 Basophils # (Auto) 0.0 0.0 CBC Comment AUTO DIFF AUTO DIFF Differential Comment AUTO DIFF CONFIRMED Platelet Estimate LOW Platelet Morphology Comment NORMAL Prothrombin Time 11.1 Prothromb Time International 1.0 Ratio Activated Partial 27.1 Thromboplast Time Sodium Level 150 145 Potassium Level 3.5 3.6 Chloride Level 114 109 Carbon Dioxide Level 23.5 24.4 Anion Gap 13 12 Blood Urea Nitrogen 4 3 Creatinine 0.76 0.67 Estimat Glomerular Filtration 105 121 Rate Random Glucose 120 118 Calcium Level 7.6 7.1 Total Bilirubin 0.7 0.8 Aspartate Amino Transf 252 187 (AST/SGOT) Alanine Aminotransferase 199 163 (ALT/SGPT) Alkaline Phosphatase 97 76 Total Creatine Kinase 146 Total Protein 7.7 6.9 Albumin 3.7 3.3 Ethyl Alcohol Level 401 Urine Color YELLOW Urine Turbidity CLEAR Urine pH 6.0 Urine Specific [place] 1.012 Urine Protein TRACE Urine Glucose (UA) TRACE Urine Ketones NEG Urine Occult Blood NEG Urine Nitrite NEG Urine Bilirubin NEG Urine Urobilinogen LESS THAN 2.0 Urine Leukocyte Esterase NEG Urine RBC 1 Urine Squamous Epithelial <1 Cells Urine Hyaline Casts 4 Microscopic Urinalysis Comment CULT NOT INDICATED Nasal Screen MRSA (PCR) MRSA NOT DETECTED Protein Corrected Calcium 7.2 Result Diagram: 10/27/1611 10/27/16510 Imaging Last Impressions Head CT 10/26/161924 Signed Impressions: Service Date/Time: October 19:40 - CONCLUSION: Normal examination. Stephen Kyle MD Chest X-Ray 10/26/161924 Signed Impressions: Service Date/Time: October 19:52 - CONCLUSION: Right perihilar infiltrate Stephen Kyle MD Assessment and Plan Problem List: (1) Atrial fibrillation with RVR Assessment and Plan: 61 yo WM with chronic alcoholism and no known cardiac disease admitted last night after being found choking and intoxicated with alcohol. Apparently he was given Heimlich maneuver successfully; brought to ED and found to be hypoxic with afib RVR. Given Cardizem po x 1 and converted to NSR Atrial fib RVR- Currently in NSR. likely induced by hypoxia and etoh. +PNA- on antibiotic will sign off. contact with questions. Carine Arredondo Oct 27, 2016 07:57
[2016-10-27] MEDS: DOCUSATE SODIUM 50 MG/SENNA 8.6 MG TAB PO SCH ×2 (08:01→08:07)
[2016-10-27] MEDS: SODIUM CHLOR 0.9% 1000 ML INJ 1,000 ML IV SCH (08:03)
[2016-10-27] MEDS ORDERED: guaiFENesin E.R. 600 MG TAB PO SCH (09:00)
[2016-10-27] MEDS ORDERED: BUDESONIDE-FORMOTEROL 160/4.5 MCG INHALER INH SCH (09:00)
[2016-10-27] MEDS ORDERED: LEVOFLOXACIN 750 MG PREMIX INJ 150 ML IV SCH (09:00)
[2016-10-27] MEDS ORDERED: SODIUM CHLORIDE 0.9% FLUSH 10 ML FLUSH IV FLUSH SCH (09:00)
--- NOTE | 2016-10-27 17:42 | EKG ---
Date Performed: 10/26/2016 Time Performed: 20:40:22 PTAGE: 61 years EKG: ATRIAL FLUTTER WITH RAPID VENTRICULAR RESPONSE MODERATE INTRAVENTRICULAR CONDUCTION DELAY A BNORMAL ECG PREVIOUS TRACING : 10/26/2016 20.39 Compared to the previous tracing SR no longer present DOCTOR: Yobani Shearer Interpretating Date/Time 10/27/2016 17:40:36
[2016-10-30] MEDS ORDERED: THIAMINE HCL 100 MG TAB PO SCH (09:00)
--- NOTE | 2016-10-30 15:59 | PD.AMA ---
Against Medical Advice Note Discharge Disposition: Against Medical Advice AMA Statement Patient Sanjiv Mcmanus has decided to leave the hospital against medical advice. This patient has the capacity to refuse care and understands the risks of leaving, including permanent disability and/or , and has had an opportunity to ask questions about his condition. The patient has been informed that he may return for care at any time, and follow up has been arranged/ advised. Son Cantor MD Oct 30, 2016 15:59
--- NOTE | 2016-10-30 16:02 | HHI.PR ---
Addendum to Inpatient Note Additional Information Disposition pt left AMA Condition on discharge: guarded healthy haert as tolerated activity rec bed rest Rx written:no rx given (pt left AMA Follow-up with primary care physician: pt left JUANCAROLSA Son Cantor MD Oct 30, 2016 16:02
== END 2016-10-27 10:30 | disposition left against medical advice (07) | DRG 178 ==
LOC: NEPD 19:02 → NEDA 21:04 → HIME 23:47
PROVIDERS: ADMIT Hospitalist; ATTEND Hospitalist
DX: J69.0 Pneumonitis due to inhalation of food and vomit (principal); T17.820A Food in other parts of respiratory tract causing asphyxiation, initial encounter; E87.0 Hyperosmolality and hypernatremia; D69.6 Thrombocytopenia, unspecified; I48.91 Unspecified atrial fibrillation; E86.0 Dehydration; F10.239 Alcohol dependence with withdrawal, unspecified; F32.9 Major depressive disorder, single episode, unspecified; F41.9 Anxiety disorder, unspecified; X58.XXXA Exposure to other specified factors, initial encounter; Y93.9 Activity, unspecified; Y92.9 Unspecified place or not applicable; Y99.9 Unspecified external cause status; Z87.891 Personal history of nicotine dependence; F10.229 Alcohol dependence with intoxication, unspecified; Y90.8 Blood alcohol level of 240 mg/100 ml or more
CPT/HCPCS: 70450; 71010; 80053; 80307; 81001; 82550; 82948; 85025; 85610; 85730; 87641; 93005; 94640; 94664; 96374; 96375; J0456; J1956; J2060; J2930; J7030; J7040; J7050

== ENCOUNTER 2016-11-02 16:10 | Emergency (ER) | payer SELFPAY ==
[2016-11-02 16:13] VITALS: BP 128/84; PULSE 106; RESP 18; TEMP 98.6; O2SAT 96
--- NOTE | 2016-11-02 16:43 | PD ---
Physical Exam Time Seen by Provider: 16:40 Narrative 61yo M c/o concern of ETOH withdrawals. Says he wants to stop drinking alcohol. Drank alcohol last this morning; reports quart of vodka. Denies SI or HI. +vomiting. Patient seen in triage. VS reviewed. Awaiting bed placement. Data Data Last Documented VS Vital Signs Date Time Temp Pulse Resp B/P Pulse Ox O2 Delivery O2 Flow Rate FiO2 11/02/16 16:13 98.6 106 18 128/84 96 Room Air MDM Supervised Visit with DIANNE: Vangie Juarez Nov 02, 2016 16:43
--- NOTE | 2016-11-02 17:40 | PD ---
HPI . wants detox Chief Complaint: Medical Clearance Time Seen by Provider: 17:40 Travel History International Travel<30 days: No Contact w/Intl Traveler<30days: No Traveled to known affect area: No History of Present Illness HPI 61-year-old male who is an alcoholic here requesting detox. Patient tells me that when he wakes up in the morning he is shaking out of the planet. He is requesting detox. He is aware that this hospital does not provide such services. He has no other complaints. He is not intoxicated at the moment. PFSH Past Medical History Atrial Fibrillation: Yes Anxiety: Yes Depression: Yes Cardiovascular Problems: Yes (ANGINA ) Diabetes: No Dialysis: No Diminished Hearing: No Gastrointestinal Disorders: No Hepatitis: Yes Hypertension: No Implanted Vascular Access Dvce: No Psychiatric: Yes Immunizations Current: Yes Seizures: Yes (DUE TO ALCOHOL WITHDRAWL) Tetanus Vaccination: < 5 Years Influenza Vaccination: Yes Past Surgical History Oral Surgery: Yes Other Surgery: Yes (UNKNOWN BACK SURGERY) Social History Alcohol Use: Yes (pt states "I drink enough to stop the shakes") Tobacco Use: No (QUIT AFTER 45 YEARS) Substance Use: No Allergies-Medications (Allergen,Severity, Reaction): Coded Allergies: Prozac (Unverified Allergy, Mild, Rash, 11/02/16) Penicillin (Verified Allergy, Unknown, 11/02/16) Reported Meds & Prescriptions Reported Meds & Active Scripts Active Chlordiazepoxide HCl 25 Mg Capsule 25 Mg PO TID PRN Reported Ativan (Lorazepam) 2 Mg Tab 2 Mg PO Q4-6H PRN Review of Systems General / Constitutional: No: Fever Eyes: No: Visual changes HENT: No: Headaches Cardiovascular: No: Chest Pain or Discomfort Respiratory: No: Shortness of Breath Gastrointestinal: No: Abdominal Pain Genitourinary: No: Dysuria Musculoskeletal: No: Pain Skin: No Rash Neurologic: Positive: Tremor, No: Weakness Psychiatric: No: Depression Endocrine: No: Polydipsia Hematologic/Lymphatic: No: Easy Bruising Physical Exam Narrative GENERAL: AAO x 3, no acute distress, Well-nourished, well-developed patient. SKIN: Warm and dry. No visible rashes or bruising. Sunburn without evidence of infection HEAD: Normocephalic and atraumatic. EYES: No scleral icterus. No injection or drainage. EOM intact, PERRLA ENT: No nasal drainage noted. Mucous membranes pink. Airway patent. NECK: Supple, trachea midline. No JVD. CARDIOVASCULAR: Regular rate and rhythm without murmurs, gallops, or rubs. RESPIRATORY: Breath sounds equal bilaterally. No accessory muscle use. No rhonchi or rales. GASTROINTESTINAL: Abdomen soft, non-tender, nondistended. EXTREMITIES: No cyanosis or edema. BACK: Nontender without obvious deformity. No CVA tenderness. 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 Data Data Last Documented VS Vital Signs Date Time Temp Pulse Resp B/P Pulse Ox O2 Delivery O2 Flow Rate FiO2 11/02/16 16:13 98.6 106 18 128/84 96 Room Air Orders Lorazepam (Ativan) (11/02/16 18:00) [facility] Medical Decision Making Medical Screen Exam Complete: Yes Emergency Medical Condition: Yes Medical Record Reviewed: Yes Differential Diagnosis alcohol abuse, alcohol withdrawals, Narrative Course 61-year-old male here requesting alcohol detox. He is not actively withdrawal. His vital signs are within normal limits. He does not actually have a tremor present. I have provided him with Ativan 1 mg PO here in emergency department. I'm discharging him with Librium. Case discussed with my attending Dr. Wayne and she is in agreement. I've advised him to follow up with [facility]. I discussed with him that he will need to seek help with [facility]. Patient verbalized understanding of instructions, questions were answered, and thanked me for their care. I advised them if their condition worsens, please return to the nearest emergency room for further care. Diagnosis Primary Impression: Alcohol abuse Referrals: [facility] Patient Instructions: General Instructions Additional Instructions: Please return to emergency department if your symptoms return or worsen. Follow up with your primary care provider. Take medications as prescribed. Please follow up with [facility] for alcohol detox. Med/Other Pt SpecificInfo: Prescription(s) given Scripts Chlordiazepoxide HCl 25 Mg [id number] Mg PO TID PRN (SHIVERING) #12 Prov:Nimo Wayne DO 11/02/16 Disposition: 01 DISCHARGE HOME Condition: Stable Victorina Marie Nov 02, 2016 17:40
[2016-11-02] MEDS ORDERED: CHLO25CA9 PO (17:49)
[2016-11-02] MEDS ORDERED: LORazepam 1 MG TAB PO ONE (18:00)
[2016-11-02 18:28] VITALS: BP 115/73; PULSE 87; RESP 19; O2SAT 97
[2016-11-02 20:47] VITALS: BP 112/78
== END 2016-11-02 20:55 | disposition home or self-care (01) ==
LOC: NEPD 16:10
DX: F10.10 Alcohol abuse, uncomplicated (principal); I48.91 Unspecified atrial fibrillation; Z87.891 Personal history of nicotine dependence
CPT/HCPCS: 99283

== ENCOUNTER 2016-11-07 14:18 | Emergency (ER) | payer SELFPAY ==
[~2016-11-07] VITALS: Ht 182.9 cm; Wt 80.0 kg
[~2016-11-07 14:18] MED LIST changes: +CHLO25CA9 PO
[2016-11-07 14:23] VITALS: BP 138/82; PULSE 101; RESP 18; TEMP 97.8; O2SAT 97
--- NOTE | 2016-11-07 18:10 | PD ---
HPI Chief Complaint: Alcohol/Drug Intoxication Time Seen by Provider: 18:10 Travel History International Travel<30 days: No Contact w/Intl Traveler<30days: No Traveled to known affect area: No History of Present Illness HPI 61 YO male presents to the ED via EMS for evaluation of "shakes all day." He endorses chills. Denies fever. Denies nausea and vomiting. Endorses chronic daily diarrhea. Denies melena, hematochezia, dysuria, back pain. Patient is a chronic alcoholic. He endorses drinking 6 beers this morning. PFSH Past Medical History Atrial Fibrillation: Yes Anxiety: Yes Depression: Yes Cardiovascular Problems: Yes (ANGINA ) Diabetes: No Dialysis: No Diminished Hearing: No Gastrointestinal Disorders: No Hepatitis: Yes Hypertension: No Implanted Vascular Access Dvce: No Psychiatric: Yes Immunizations Current: Yes Seizures: Yes (DUE TO ALCOHOL WITHDRAWL) Past Surgical History Oral Surgery: Yes Other Surgery: Yes (UNKNOWN BACK SURGERY) Social History Alcohol Use: Yes (pt states "I drink enough to stop the shakes") Tobacco Use: No (QUIT AFTER 45 YEARS) Substance Use: No Allergies-Medications (Allergen,Severity, Reaction): Coded Allergies: Prozac (Unverified Allergy, Mild, Rash, 11/02/16) Penicillin (Verified Allergy, Unknown, 11/02/16) Reported Meds & Prescriptions Reported Meds & Active Scripts Active Chlordiazepoxide HCl 25 Mg Capsule 25 Mg PO TID PRN Reported Ativan (Lorazepam) 2 Mg Tab 2 Mg PO Q4-6H PRN Review of Systems Except as stated in HPI: all other systems reviewed are Neg Physical Exam Narrative GENERAL: Well-nourished, well-developed white male in no acute distress. SKIN: Focused skin assessment warm/dry. Sunburn over the left-sided torso, flank and back with large peeling spots of skin. No sign of infection. HEAD: Normocephalic. EYES: No scleral icterus. No injection or drainage. PERRLA. EOMI. NECK: Supple, trachea midline. No JVD or lymphadenopathy. CARDIOVASCULAR: Regular rate and rhythm without murmurs, gallops, or rubs. RESPIRATORY: Breath sounds clear and equal bilaterally. No accessory muscle use. GASTROINTESTINAL: Abdomen soft, nondistended. Active bowel sounds. Tender to palpation in the epigastric area. MUSCULOSKELETAL: No cyanosis, or edema. Moves extremities spontaneously. NEUROLOGICAL: Awake and alert. Cranial nerves II through XII intact. Motor and sensory grossly within normal limits. 5/5 muscle strength in all muscle groups. Normal speech. BACK: Nontender without obvious deformity. No CVA tenderness. Data Data Last Documented VS Vital Signs Date Time Temp Pulse Resp B/P Pulse Ox O2 Delivery O2 Flow Rate FiO2 11/07/16 20:37 98.3 82 16 145/68 97 11/07/16 18:59 Room Air Orders Complete Blood Count With Diff (11/07/16 18:29) Comprehensive Metabolic Panel (11/07/16 18:29) Lipase (11/07/16 18:29) Prothrombin Time / Inr (Pt) (11/07/16 18:29) Act Partial Throm Time (Ptt) (11/07/16 18:29) Urinalysis - C+S If Indicated (11/07/16 18:29) Iv Access Insert/Monitor (11/07/16 18:29) Ecg Monitoring (11/07/16 18:29) Oximetry (11/07/16 18:29) Sodium Chloride 0.9% Flush (Ns Flush) (11/07/16 18:30) Lorazepam Inj (Ativan Inj) (11/07/16 18:30) Sodium Chlor 0.9% 1000 Ml Inj (Ns 1000 M (11/07/16 18:30) Lactic Acid (11/07/16 18:31) Alcohol Withdrawal Asmt-Ciwa ONCE (11/07/16 19:17) Flumazenil Inj (Romazicon Inj) (11/07/16 19:30) Lorazepam (Ativan) (11/07/16 19:30) Lorazepam Inj (Ativan Inj) (11/07/16 19:30) Lorazepam (Ativan) (11/07/16 19:30) Lorazepam Inj (Ativan Inj) (11/07/16 19:30) Lorazepam Inj (Ativan Inj) (11/07/16 19:30) Lorazepam Inj (Ativan Inj) (11/07/16 19:30) Labs Laboratory Tests Test 11/07/16 11/07/16 18:58 19:00 White Blood Count 11.7 TH/MM3 Red Blood Count 3.96 MIL/MM3 Hemoglobin 13.0 GM/DL Hematocrit 38.6 % Mean Corpuscular Volume 97.3 FL Mean Corpuscular Hemoglobin 32.7 PG Mean Corpuscular Hemoglobin 33.6 % Concent Red Cell Distribution Width 14.0 % Platelet Count 120 TH/MM3 Mean Platelet Volume 6.2 FL Neutrophils (%) (Auto) 65.9 % Lymphocytes (%) (Auto) 21.8 % Monocytes (%) (Auto) 10.8 % Eosinophils (%) (Auto) 0.9 % Basophils (%) (Auto) 0.6 % Neutrophils # (Auto) 7.7 TH/MM3 Lymphocytes # (Auto) 2.6 TH/MM3 Monocytes # (Auto) 1.3 TH/MM3 Eosinophils # (Auto) 0.1 TH/MM3 Basophils # (Auto) 0.1 TH/MM3 CBC Comment DIFF FINAL Differential Comment Prothrombin Time 10.9 SEC Prothromb Time International 1.0 RATIO Ratio Activated Partial 28.9 SEC Thromboplast Time Sodium Level 147 MEQ/L Potassium Level 4.2 MEQ/L Chloride Level 112 MEQ/L Carbon Dioxide Level 27.2 MEQ/L Anion Gap 8 MEQ/L Blood Urea Nitrogen 7 MG/DL Creatinine 0.75 MG/DL Estimat Glomerular Filtration 107 ML/MIN Rate Random Glucose 89 MG/DL Calcium Level 7.8 MG/DL Total Bilirubin 0.5 MG/DL Aspartate Amino Transf 56 U/L (AST/SGOT) Alanine Aminotransferase 65 U/L (ALT/SGPT) Alkaline Phosphatase 86 U/L Total Protein 7.4 GM/DL Albumin 3.4 GM/DL Lipase 460 U/L Urine Color YELLOW Urine Turbidity CLOUDY Urine pH 5.5 Urine Specific [place] 1.027 Urine Protein 30 mg/dL Urine Glucose (UA) NEG mg/dL Urine Ketones NEG mg/dL Urine Occult Blood NEG Urine Nitrite NEG Urine Bilirubin NEG Urine Urobilinogen LESS THAN 2.0 MG/DL Urine Leukocyte Esterase NEG Urine RBC 1 /hpf Urine WBC 5 /hpf Urine Bacteria RARE /hpf Urine Hyaline Casts 2 /lpf Urine Mucus MOD /lpf Microscopic Urinalysis Comment CULT NOT INDICATED Lactic Acid Level 1.6 mmol/L MDM Medical Decision Making Medical Screen Exam Complete: Yes Emergency Medical Condition: Yes Differential Diagnosis Acute alcohol intoxication versus alcohol withdrawal versus pancreatitis versus dehydration versus malingering versus other Narrative Course 61 YO male presents to the ED via EMS for evaluation of "shakes all day." He endorses chills. Denies fever. Denies nausea and vomiting. Endorses chronic daily diarrhea. Denies melena, hematochezia, dysuria, back pain. Patient is a chronic alcoholic. He endorses drinking 6 beers this morning. Vitals reviewed. Patient is tremulous on physical exam. No focal neural deficits. Patient has a blistering sunburn over the abdomen left flank and left lateral back. Large swaths of peeling skin without signs of infection. Tender to palpation in the epigastric region exam is otherwise unremarkable. IV was established patient was administered 2 mg Ativan, 1 L normal saline. CMP reveals hyperkalemia and hyponatremia which at the patient's baseline. No culture of the urine indicated. This is alcohol dependence with acute alcoholic intoxication. Patient's instructed to follow-up with [facility], return to the ED for any urgent or emergent medical condition. He indicated understanding of instructions and is agreeable care plan. He stable and discharged home. Diagnosis Primary Impression: Alcohol dependence with acute alcoholic intoxication Qualified Code: F10.220 - Alcohol dependence with acute alcoholic intoxication , uncomplicated Referrals: [facility] (Out patient) Patient Instructions: Abuse of Alcohol (ED), General Instructions Additional Instructions: Seek outpatient treatment for chronic alcoholism. Return to the ED for any urgent or emergent medical condition. Disposition: 01 DISCHARGE HOME Condition: Stable Monse Blanchard Nov 07, 2016 18:10
[2016-11-07] MEDS ORDERED: SODIUM CHLOR 0.9% 1000 ML INJ 1,000 ML IV ONE (18:30)
[2016-11-07] MEDS ORDERED: LORazepam 2 MG/ML VIAL IV PUSH ONE (18:30)
[2016-11-07] MEDS ORDERED: SODIUM CHLORIDE 0.9% FLUSH 10 ML FLUSH IV FLUSH PRN (18:30)
[2016-11-07 18:53] VITALS: RESP 18; O2SAT 97
[2016-11-07 18:59] VITALS: BP 154/83; PULSE 69; RESP 18; O2SAT 97
[2016-11-07 19:22] LABS: AUTOMATED NEUTROPHIL # 7.7 TH/MM3 (1.8-7.7); BASOPHIL # 0.1 TH/MM3 (0-0.2); BASOPHIL % 0.6 % (0.0-2.0); EOSINOPHIL # 0.1 TH/MM3 (0-0.4); EOSINOPHIL % 0.9 % (0.0-4.0); HEMATOCRIT 38.6 % (39.0-51.0); HEMO FLAGS DIFF FINAL; LYMPH % 21.8 % (9.0-44.0); LYMPHOCYTE # 2.6 TH/MM3 (1.0-4.8); MEAN CELL VOLUME 97.3 FL (80.0-100.0); MEAN CORPUSCULAR HEMOGLOBIN 32.7 PG (27.0-34.0); MEAN CORPUSCULAR HGB CONC 33.6 % (32.0-36.0); MONO % 10.8 % (0.0-8.0); NEUT % 65.9 % (16.0-70.0); PLATELET COUNT 120 TH/MM3 (150-450); RED BLOOD COUNT 3.96 MIL/MM3 (4.50-5.90); WHITE BLOOD COUNT 11.7 TH/MM3 (4.0-11.0)
[2016-11-07] MEDS ORDERED: LORazepam 1 MG TAB PO PRN (19:30)
[2016-11-07] MEDS ORDERED: LORazepam 2 MG/ML VIAL IV PUSH PRN ×4 (19:30)
[2016-11-07] MEDS ORDERED: FLUMAZENIL 0.5 MG/5 ML VIAL IV PUSH PRN (19:30)
[2016-11-07] MEDS ORDERED: LORazepam 2 MG TAB PO PRN (19:30)
[2016-11-07 19:34] LABS: BACTERIA, URINE RARE /hpf; BLOOD, URINE NEG (NEG); COMMENT (UR) CULT NOT INDICATED; CULTURE IF INDICATED CULT NOT INDICATED; GLUCOSE,URINE NEG (NEG); HYALINE CAST, URINE 2 /lpf (RARE); KETONE, URINE NEG (NEG); MUCUS URINE MOD /lpf (OCC); NITRITE,URINE NEG (NEG); PH, URINE 5.5 (5.0-8.5); URINE COLOR YELLOW (YELLW/STRAW)
[2016-11-07 19:39] LABS: APTT (PATIENT) 28.9 SEC (24.3-30.1); PROTHROMBIN TIME - PATIENT 10.9 SEC (9.8-11.6)
[2016-11-07 19:47] LABS: ANION GAP 8 MEQ/L (5-15); AST (GOT) 56 U/L (15-37); BICARBONATE 27.2 MEQ/L (21.0-32.0); BLOOD UREA NITROGEN 7 MG/DL (7-18); CHLORIDE 112 MEQ/L (98-107); GLOMERULAR FILTRATION RATE 107 ML/MIN (>89); POTASSIUM 4.2 MEQ/L (3.5-5.1); SODIUM (NA) 147 MEQ/L (136-145)
[2016-11-07 19:48] LABS: ALT (GPT) 65 U/L (12-78)
[2016-11-07 19:50] LABS: ALKALINE PHOSPHATASE 86 U/L (45-117); TOTAL BILIRUBIN ADULT 0.5 MG/DL (0.2-1.0)
[2016-11-07 20:37] VITALS: BP 145/68; TEMP 98.3
== END 2016-11-07 20:38 | disposition home or self-care (01) ==
LOC: NEPD 14:18
DX: F10.220 Alcohol dependence with intoxication, uncomplicated (principal); I48.91 Unspecified atrial fibrillation; Y90.9 Presence of alcohol in blood, level not specified
CPT/HCPCS: 80053; 81001; 83605; 83690; 85025; 85610; 85730; 96361; 96374; 99284; J2060; J7030

== ENCOUNTER 2016-11-16 17:41 | Inpatient (IN) | payer SELFPAY ==
[~2016-11-16] VITALS: Ht 182.9 cm; Wt 75.0 kg
[2016-11-16 17:49] VITALS: BP 118/70; PULSE 84; RESP 18; TEMP 98.4; O2SAT 96
[2016-11-16 17:53] VITALS: BP 118/70; PULSE 88; RESP 19; TEMP 98.4; O2SAT 95
[2016-11-16] MEDS ORDERED: SODIUM CHLOR 0.9% 1000 ML INJ 1,000 ML IV SCH (18:08)
[2016-11-16] MEDS: chlordiazePOXIDE 25 MG CAP PO PRN (18:14)
--- NOTE | 2016-11-16 18:15 | PD ---
HPI Chief Complaint: abdominal pain, vomiting, diarrhea Time Seen by Provider: 17:55 Travel History International Travel<30 days: No Contact w/Intl Traveler<30days: No Traveled to known affect area: No History of Present Illness HPI 61yo M with PMH of alcohol abuse, hep C here with c/o abdominal pain, NBNB vomiting and nonbloody diarrhea today. States he last drank vodka at 12pm yesterday. Pt is trying to stop drinking alcohol. Also with occasional chest pain but currently denies any chest pain, sob, fever, cough, focal weakness or numbness. Denies any suicidal or homicidal ideations. PFSH Past Medical History Atrial Fibrillation: Yes Anxiety: Yes Depression: Yes Cardiovascular Problems: Yes (ANGINA ) Cerebrovascular Accident: Yes Diabetes: No Dialysis: No Diminished Hearing: No Gastrointestinal Disorders: No Hepatitis: Yes Hypertension: No Implanted Vascular Access Dvce: No Psychiatric: Yes Immunizations Current: Yes Seizures: Yes (DUE TO ALCOHOL WITHDRAWL) Past Surgical History Oral Surgery: Yes Other Surgery: Yes (UNKNOWN BACK SURGERY) Social History Alcohol Use: Yes (pt states "I drink enough to stop the shakes", abuses frequently) Tobacco Use: No (QUIT AFTER 45 YEARS) Substance Use: No Allergies-Medications (Allergen,Severity, Reaction): Coded Allergies: Prozac (Unverified Allergy, Mild, Rash, 11/16/16) Penicillin (Verified Allergy, Unknown, 11/16/16) Reported Meds & Prescriptions Reported Meds & Active Scripts Active Chlordiazepoxide HCl 25 Mg Capsule 25 Mg PO TID PRN Reported Ativan (Lorazepam) 2 Mg Tab 2 Mg PO Q4-6H PRN Review of Systems Except as stated in HPI: all other systems reviewed are Neg Physical Exam Narrative GENERAL: 61yo M not in distress. SKIN: Focused skin assessment warm/dry. HEAD: Atraumatic. Normocephalic. EYES: Pupils equal and round. No scleral icterus. No injection or drainage. ENT: No nasal bleeding or discharge. Mucous membranes pink and moist. NECK: Trachea midline. No JVD. CARDIOVASCULAR: Regular rate and rhythm. No murmur appreciated. RESPIRATORY: No accessory muscle use. Clear to auscultation. Breath sounds equal bilaterally. GASTROINTESTINAL: Abdomen soft, +TTP epigastric region. +LUQ. No rebound tenderness or guarding. MUSCULOSKELETAL: No obvious deformities. No clubbing. No cyanosis. No edema. NEUROLOGICAL: Awake and alert. No obvious cranial nerve deficits. Motor grossly within normal limits. Normal speech. PSYCHIATRIC: Appropriate mood and affect; insight and judgment normal. Data Data Last Documented VS Vital Signs Date Time Temp Pulse Resp B/P Pulse Ox O2 Delivery O2 Flow Rate FiO2 11/16/16 20:18 86 18 118/70 95 Room Air 11/16/16 17:53 98.4 Orders Complete Blood Count With Diff (11/16/16 18:08) Comprehensive Metabolic Panel (11/16/16 18:08) Lipase (11/16/16 18:08) Prothrombin Time / Inr (Pt) (11/16/16 18:08) Act Partial Throm Time (Ptt) (11/16/16 18:08) Urinalysis - C+S If Indicated (11/16/16 18:08) Ct Abd/Pel W Iv Contrast(Rout) (11/16/16 18:08) Sodium Chlor 0.9% 1000 Ml Inj (Ns 1000 M (11/16/16 18:08) Alcohol (Ethanol) (11/16/16 18:08) Electrocardiogram (11/16/16 ) Troponin I (11/16/16 18:08) Chest, Single Ap (11/16/16 ) Chlordiazepoxide (Librium) (11/16/16 18:15) Potassium Chloride (Kcl) (11/16/16 19:30) Calcium Gluconate Inj (Calcium Gluconate (11/16/16 20:00) Magnesium Sulfate 1 Gm Premix (Magnesium (11/16/16 20:00) Sodium Chlorid 0.9% 500 Ml Inj (Ns 500 M (11/16/16 20:00) Iohexol 350 Inj (Omnipaque 350 Inj) (11/16/16 20:24) Ciprofloxacin 400 Mg Premix (Cipro 400 M (11/16/16 21:00) Metronidazole 250 Mg Inj (Flagyl 250 Mg (11/16/16 21:00) Ondansetron Inj (Zofran Inj) (11/16/16 21:00) Admit Order (Ed Use Only) (11/16/16 21:22) Labs Laboratory Tests Test 11/16/16 11/16/16 18:15 19:05 White Blood Count 7.7 TH/MM3 Red Blood Count 3.74 MIL/MM3 Hemoglobin 12.2 GM/DL Hematocrit 36.6 % Mean Corpuscular Volume 97.9 FL Mean Corpuscular Hemoglobin 32.5 PG Mean Corpuscular Hemoglobin 33.2 % Concent Red Cell Distribution Width 14.0 % Platelet Count 111 TH/MM3 Mean Platelet Volume 5.8 FL Neutrophils (%) (Auto) 71.2 % Lymphocytes (%) (Auto) 19.7 % Monocytes (%) (Auto) 7.8 % Eosinophils (%) (Auto) 0.7 % Basophils (%) (Auto) 0.6 % Neutrophils # (Auto) 5.5 TH/MM3 Lymphocytes # (Auto) 1.5 TH/MM3 Monocytes # (Auto) 0.6 TH/MM3 Eosinophils # (Auto) 0.1 TH/MM3 Basophils # (Auto) 0.0 TH/MM3 CBC Comment DIFF FINAL Differential Comment Prothrombin Time 11.0 SEC Prothromb Time International 1.0 RATIO Ratio Activated Partial 28.4 SEC Thromboplast Time Sodium Level 150 MEQ/L Potassium Level 2.9 MEQ/L Chloride Level 118 MEQ/L Carbon Dioxide Level 22.6 MEQ/L Anion Gap 9 MEQ/L Blood Urea Nitrogen 2 MG/DL Creatinine 0.75 MG/DL Estimat Glomerular Filtration 107 ML/MIN Rate Random Glucose 91 MG/DL Calcium Level 7.4 MG/DL Protein Corrected Calcium 7.7 MG/DL Total Bilirubin 0.6 MG/DL Aspartate Amino Transf 44 U/L (AST/SGOT) Alanine Aminotransferase 37 U/L (ALT/SGPT) Alkaline Phosphatase 147 U/L Troponin I LESS THAN 0.02 NG/ML Total Protein 6.5 GM/DL Albumin 3.0 GM/DL Lipase 298 U/L Ethyl Alcohol Level 403 MG/DL Urine Color YELLOW Urine Turbidity CLEAR Urine pH 5.5 Urine Specific [place] 1.016 Urine Protein TRACE mg/dL Urine Glucose (UA) NEG mg/dL Urine Ketones NEG mg/dL Urine Occult Blood MOD Urine Nitrite NEG Urine Bilirubin NEG Urine Urobilinogen LESS THAN 2.0 MG/DL Urine Leukocyte Esterase NEG Urine RBC 9 /hpf Urine WBC 3 /hpf Urine Hyaline Casts 15 /lpf Urine Mucus FEW /lpf Microscopic Urinalysis Comment CULT NOT INDICATED MDM Medical Decision Making Medical Screen Exam Complete: Yes Emergency Medical Condition: Yes Interpretation(s) EKG: NSR 74bpm. No axis. No ST segment elevation or depression. Differential Diagnosis Alcohol withdrawal vs. pancreatitis vs. colitis vs. UTI Narrative Course 61yo M with alcohol abuse here with vomiting, abdominal pain, diarrhea after he stopped drinking alcohol yesterday. States he used to take librium but does not have it. VS stable. Mild tongue fasciulations. Will give librium. Pt does have significant abdominal tenderness on exam. CXR negative. Will obtain labs, CTa/p and reevaluate. Will sign out to next team to follow up labs , CTa/p. Diagnosis Primary Impression: Abdominal pain Qualified Code: R10.84 - Generalized abdominal pain Nimo Wayne DO Nov 16, 2016 18:14
--- NOTE | 2016-11-16 18:48 | RADRPT ---
EXAM DATE/TIME: 11/16/2016 18:38 [facility] COMPARISON: CHEST SINGLE AP, October 26, 2016, 19:52. INDICATIONS : Short of breath MEDICAL HISTORY : None. SURGICAL HISTORY : None. ENCOUNTER: Initial ACUITY: 1 day PAIN SCORE: Non-responsive. LOCATION: Bilateral chest FINDINGS: A single view of the chest demonstrates the lungs to be symmetrically aerated without evidence of mas s, infiltrate or effusion. The cardiomediastinal contours are unremarkable. Osseous structures are intact. CONCLUSION: No acute disease. Wellington Alcaraz MD on November 16, 2016 at 18:46 Board Certified Radiologist. This report was verified electronically.
[2016-11-16 18:51] LABS: AUTOMATED NEUTROPHIL # 5.5 TH/MM3 (1.8-7.7); BASOPHIL % 0.6 % (0.0-2.0); EOSINOPHIL # 0.1 TH/MM3 (0-0.4); EOSINOPHIL % 0.7 % (0.0-4.0); HEMATOCRIT 36.6 % (39.0-51.0); HEMO FLAGS DIFF FINAL; LYMPH % 19.7 % (9.0-44.0); LYMPHOCYTE # 1.5 TH/MM3 (1.0-4.8); MEAN CELL VOLUME 97.9 FL (80.0-100.0); MEAN CORPUSCULAR HEMOGLOBIN 32.5 PG (27.0-34.0); MEAN CORPUSCULAR HGB CONC 33.2 % (32.0-36.0); MONO % 7.8 % (0.0-8.0); NEUT % 71.2 % (16.0-70.0); PLATELET COUNT 111 TH/MM3 (150-450); RED BLOOD COUNT 3.74 MIL/MM3 (4.50-5.90); WHITE BLOOD COUNT 7.7 TH/MM3 (4.0-11.0)
[2016-11-16 19:03] LABS: APTT (PATIENT) 28.4 SEC (24.3-30.1)
[2016-11-16 19:18] LABS: ALKALINE PHOSPHATASE 147 U/L (45-117); ALT (GPT) 37 U/L (12-78); ANION GAP 9 MEQ/L (5-15); AST (GOT) 44 U/L (15-37); BICARBONATE 22.6 MEQ/L (21.0-32.0); BLOOD UREA NITROGEN 2 MG/DL (7-18); CALCIUM-PROTEIN CORRECTED 7.7 MG/DL (8.5-10.1); CHLORIDE 118 MEQ/L (98-107); GLOMERULAR FILTRATION RATE 107 ML/MIN (>89); SODIUM (NA) 150 MEQ/L (136-145); TOTAL BILIRUBIN ADULT 0.6 MG/DL (0.2-1.0)
[2016-11-16 19:22] LABS: POTASSIUM 2.9 MEQ/L (3.5-5.1)
[2016-11-16 19:24] LABS: BLOOD, URINE MOD (NEG); COMMENT (UR) CULT NOT INDICATED; CULTURE IF INDICATED CULT NOT INDICATED; GLUCOSE,URINE NEG (NEG); HYALINE CAST, URINE 15 /lpf (RARE); KETONE, URINE NEG (NEG); MUCUS URINE FEW /lpf (OCC); NITRITE,URINE NEG (NEG); PH, URINE 5.5 (5.0-8.5); URINE COLOR YELLOW (YELLW/STRAW)
[2016-11-16] MEDS ORDERED: POTASSIUM CHLORIDE 20 MEQ CONTROLLED RELEASE TAB PO ONE (19:30)
--- NOTE | 2016-11-16 19:40 | PD ---
Physical Exam Date Seen by Provider: Nov 16, 2016 Narrative GENERAL: SKIN: Warm and dry. HEAD: Atraumatic. Normocephalic. EYES: Pupils equal and round. No scleral icterus. No injection or drainage. ENT: No nasal bleeding or discharge. Mucous membranes pink and moist. NECK: Trachea midline. No JVD. CARDIOVASCULAR: Regular rate and rhythm. RESPIRATORY: No accessory muscle use. Clear to auscultation. Breath sounds equal bilaterally. GASTROINTESTINAL: Abdomen soft, MILD DIFFUSE TENDERNESS TO PERCUSSION BUT WITHOUT REBOUND/RIGIDITY, nondistended. MUSCULOSKELETAL: Extremities without clubbing, cyanosis, or edema. No obvious deformities. NEUROLOGICAL: Awake and alert. No obvious cranial nerve deficits. Motor grossly within normal limits. Five out of 5 muscle strength in the arms and legs. Normal speech. PSYCHIATRIC: Appropriate mood and affect; insight and judgment normal. Data Data Last Documented VS Vital Signs Date Time Temp Pulse Resp B/P Pulse Ox O2 Delivery O2 Flow Rate FiO2 11/16/16 20:18 86 18 118/70 95 Room Air 11/16/16 17:53 98.4 Orders Complete Blood Count With Diff (11/16/16 18:08) Comprehensive Metabolic Panel (11/16/16 18:08) Lipase (11/16/16 18:08) Prothrombin Time / Inr (Pt) (11/16/16 18:08) Act Partial Throm Time (Ptt) (11/16/16 18:08) Urinalysis - C+S If Indicated (11/16/16 18:08) Ct Abd/Pel W Iv Contrast(Rout) (11/16/16 18:08) Sodium Chlor 0.9% 1000 Ml Inj (Ns 1000 M (11/16/16 18:08) Alcohol (Ethanol) (11/16/16 18:08) Electrocardiogram (11/16/16 ) Troponin I (11/16/16 18:08) Chest, Single Ap (11/16/16 ) Chlordiazepoxide (Librium) (11/16/16 18:15) Potassium Chloride (Kcl) (11/16/16 19:30) Calcium Gluconate Inj (Calcium Gluconate (11/16/16 20:00) Magnesium Sulfate 1 Gm Premix (Magnesium (11/16/16 20:00) Sodium Chlorid 0.9% 500 Ml Inj (Ns 500 M (11/16/16 20:00) Iohexol 350 Inj (Omnipaque 350 Inj) (11/16/16 20:24) Ciprofloxacin 400 Mg Premix (Cipro 400 M (11/16/16 21:00) Metronidazole 250 Mg Inj (Flagyl 250 Mg (11/16/16 21:00) Ondansetron Inj (Zofran Inj) (11/16/16 21:00) Admit Order (Ed Use Only) (11/16/16 21:22) Labs Laboratory Tests Test 11/16/16 11/16/16 18:15 19:05 White Blood Count 7.7 TH/MM3 Red Blood Count 3.74 MIL/MM3 Hemoglobin 12.2 GM/DL Hematocrit 36.6 % Mean Corpuscular Volume 97.9 FL Mean Corpuscular Hemoglobin 32.5 PG Mean Corpuscular Hemoglobin 33.2 % Concent Red Cell Distribution Width 14.0 % Platelet Count 111 TH/MM3 Mean Platelet Volume 5.8 FL Neutrophils (%) (Auto) 71.2 % Lymphocytes (%) (Auto) 19.7 % Monocytes (%) (Auto) 7.8 % Eosinophils (%) (Auto) 0.7 % Basophils (%) (Auto) 0.6 % Neutrophils # (Auto) 5.5 TH/MM3 Lymphocytes # (Auto) 1.5 TH/MM3 Monocytes # (Auto) 0.6 TH/MM3 Eosinophils # (Auto) 0.1 TH/MM3 Basophils # (Auto) 0.0 TH/MM3 CBC Comment DIFF FINAL Differential Comment Prothrombin Time 11.0 SEC Prothromb Time International 1.0 RATIO Ratio Activated Partial 28.4 SEC Thromboplast Time Sodium Level 150 MEQ/L Potassium Level 2.9 MEQ/L Chloride Level 118 MEQ/L Carbon Dioxide Level 22.6 MEQ/L Anion Gap 9 MEQ/L Blood Urea Nitrogen 2 MG/DL Creatinine 0.75 MG/DL Estimat Glomerular Filtration 107 ML/MIN Rate Random Glucose 91 MG/DL Calcium Level 7.4 MG/DL Protein Corrected Calcium 7.7 MG/DL Total Bilirubin 0.6 MG/DL Aspartate Amino Transf 44 U/L (AST/SGOT) Alanine Aminotransferase 37 U/L (ALT/SGPT) Alkaline Phosphatase 147 U/L Troponin I LESS THAN 0.02 NG/ML Total Protein 6.5 GM/DL Albumin 3.0 GM/DL Lipase 298 U/L Ethyl Alcohol Level 403 MG/DL Urine Color YELLOW Urine Turbidity CLEAR Urine pH 5.5 Urine Specific [place] 1.016 Urine Protein TRACE mg/dL Urine Glucose (UA) NEG mg/dL Urine Ketones NEG mg/dL Urine Occult Blood MOD Urine Nitrite NEG Urine Bilirubin NEG Urine Urobilinogen LESS THAN 2.0 MG/DL Urine Leukocyte Esterase NEG Urine RBC 9 /hpf Urine WBC 3 /hpf Urine Hyaline Casts 15 /lpf Urine Mucus FEW /lpf Microscopic Urinalysis Comment CULT NOT INDICATED MDM Medical Record Reviewed: Yes Supervised Visit with DIANNE: No Differential Diagnosis PANCREATITIS V COLITIS V ENTERITIS V ELECTROLYTE ABNL Narrative Course RECEIVED SIGN OUT PENDING LABS AND CT WELL REEVAL...PATIENT FOUND TO BE HYPOKALEMIC,HYPOCALCEMIC AND LIKELY HYPOMAGNESEMIA WELL, ELEV ETOH, CURRENTLY AWAITING HIS CT TO BE PERFORMED....CT SHOWED DIFFUSE BOWEL THICKENING C/W COLITIS Diagnosis Primary Impression: HYPOKALEMIA/HYPOCALCEMIA Additional Impressions: COLITIS ETOH INTOXICATION Admitting Information Admitting Physician Requests: Admit Pablo Rush MD Nov 16, 2016 19:40
[2016-11-16] MEDS ORDERED: SODIUM CHLORID 0.9% 500 ML INJ 500 ML IV ONE (20:00)
[2016-11-16] MEDS ORDERED: CALCIUM GLUCONATE INJ 1 GM in SODIUM CHLORIDE 0.9% INJ 100 ML IV ONE (20:00)
[2016-11-16] MEDS ORDERED: MAGNESIUM SULFATE 1 GM PREMIX 100 ML IV ONE (20:00)
[2016-11-16 20:18] VITALS: BP 118/70; PULSE 86; RESP 18; O2SAT 95
[2016-11-16] MEDS ORDERED: IOHEXOL 350 MG/ML 10 ML VIAL (for RAD DIAG) IV ONE (20:24)
--- NOTE | 2016-11-16 20:46 | RADRPT ---
EXAM DATE/TIME: 11/16/2016 20:20 [facility] COMPARISON: No previous studies available for comparison. INDICATIONS : Abdominal pain, vomiting and diarrhea. IV CONTRAST: 100 cc Omnipaque 350 (iohexol) IV ORAL CONTRAST: No oral contrast ingested. RADIATION DOSE: 5.84 CTDIvol (mGy) MEDICAL HISTORY : Cardiovascular disease. Cirrhosis. Hepatitis.A-fib. SURGICAL HISTORY : None. ENCOUNTER: Initial ACUITY: 1 day PAIN SCALE: 6/10 LOCATION: All quadrants. TECHNIQUE: Volumetric scanning of the abdomen and pelvis was performed. Using automated exposure control and ad justment of the mA and/or kV according to patient size, radiation dose was kept as low as reasonably achievable to obtain optimal diagnostic quality images. DICOM format image data is available electro nically for review and comparison. FINDINGS: LOWER LUNGS: The visualized lower lungs are clear. LIVER: Homogeneous density without lesion. There is no dilation of the biliary tree. There is moderate diff use hepatic steatosis. There is increased density layering dependently in the lower gallbladder no di stinct calcification. SPLEEN: Normal size without lesion. PANCREAS: Within normal limits. KIDNEYS: Normal in size and shape. There is no mass, stone or hydronephrosis. ADRENAL GLANDS: Within normal limits. VASCULAR: There is no aortic aneurysm. BOWEL/MESENTERY: No oral contrast was given limiting the sensitivity of the exam. The bowel gas pattern is abnormal wi th apparent mild diffuse wall thickening involving the majority of the colon and indistinctness. Ther e are multiple loops of borderline dilated small bowel with multiple small air-fluid levels. There is no definite free air or fluid ABDOMINAL WALL: Within normal limits. RETROPERITONEUM: There is no lymphadenopathy. BLADDER: No wall thickening or mass. REPRODUCTIVE: Within normal limits. INGUINAL: There is no lymphadenopathy or hernia. MUSCULOSKELETAL: Within normal limits for patient age. CONCLUSION: 1. Abnormal bowel gas pattern with apparent diffuse colonic wall thickening and indistinctness. There are multiple loops of borderline dilated small bowel with air-fluid levels. The findings are nonspec ific but most consistent with colitis and possible ileus. 2. No definite free air or fluid. No oral contrast was given limiting the sensitivity. 3. High density layering dependently in the gallbladder which could represent gallbladder sludge. The re is no definite calcifications. 4. Moderate hepatic steatosis. Wellington Alcaraz MD on November 16, 2016 at 20:40 Board Certified Radiologist. This report was verified electronically.
[2016-11-16] MEDS ORDERED: ONDANSETRON HCL 4 MG/2 ML VIAL IV PUSH ONE (21:00)
[2016-11-16] MEDS ORDERED: CIPROFLOXACIN 400 MG PREMIX 200 ML IV ONE (21:00)
[2016-11-16] MEDS ORDERED: metroNIDAZOLE 250 MG INJ 50 ML IV ONE (21:00)
[2016-11-16] MEDS ORDERED: SODIUM CHLORIDE 0.9% FLUSH 10 ML FLUSH IV FLUSH PRN (21:45)
[2016-11-16] MEDS ORDERED: LORazepam 2 MG/ML VIAL IV PUSH PRN ×2 (21:45)
[2016-11-16] MEDS ORDERED: ONDANSETRON HCL 4 MG/2 ML VIAL IVP PRN (21:45)
[2016-11-16] MEDS ORDERED: NALOXONE HCL 0.4 MG/ML AMP IV PRN (21:45)
[2016-11-16] MEDS ORDERED: FLUMAZENIL 0.5 MG/5 ML VIAL IV PUSH PRN (21:45)
[2016-11-16] MEDS ORDERED: THIAMINE HCL 100 MG TAB PO ONE (21:45)
[2016-11-16 22:00] VITALS: BP 132/73; PULSE 70; RESP 22; TEMP 98.6; O2SAT 97
[2016-11-16] MEDS: SODIUM CHLOR 0.9% 1000 ML INJ 1,000 ML IV SCH (22:21)
[2016-11-16 22:42] VITALS: BP 115/82
[2016-11-16] MEDS: LORazepam 2 MG/ML VIAL IV PUSH PRN (23:20)
[2016-11-17] MEDS: LORazepam 2 MG/ML VIAL IV PUSH PRN ×5 (02:11→20:42)
--- NOTE | 2016-11-17 03:42 | HHI.HP ---
HPI [facility] Primary Care Physician Unknown Admission Diagnosis HYPOKALEMIA/HYPOCALCEMIA, COLITIS Diagnoses: Travel History International Travel<30 Days: No Contact w/Intl Traveler <30 Da: No Traveled to Known Affected Are: No History of Present Illness about 10x diarrhea for more than a week both black, green, color was not on any antibiotics fever for 2- 3 weeks no nasuea/ no vomiting had burnign urination, pain and frequent urination dizziness frequent urination- have to stop to urinate every 20min or so in the [place] Review of Systems Except as stated in HPI: all other systems reviewed are Neg Past Family Social History Past Medical History etoh withdrawal seizures hepatitis c serious prostate problems right now Past Surgical History dental Allergies: Coded Allergies: Prozac (Unverified Allergy, Mild, Rash, 11/16/16) Penicillin (Verified Allergy, Unknown, 11/16/16) Family History mom had cancer, but all spread by time of diagnosis , dont know primary dad had cva Social History no smoking drink vodka about 5 a day no drugs Physical Exam Vital Signs Vital Signs Date Time Temp Pulse Resp B/P Pulse Ox O2 Delivery O2 Flow Rate FiO2 11/16/16 22:42 86 18 115/82 96 11/16/16 22:00 98.6 70 22 132/73 97 11/16/16 20:18 86 18 118/70 95 Room Air 11/16/16 17:53 88 19 11/16/16 17:53 98.4 88 19 118/70 95 Room Air 11/16/16 17:49 98.4 84 18 118/70 96 Physical Exam GENERAL: This is a well-nourished, well-developed patient, in no apparent distress. SKIN: No rashes, ecchymoses or lesions. Cool and dry. HEAD: Atraumatic. Normocephalic. No temporal or scalp tenderness. EYES: Pupils equal round and reactive. Extraocular motions intact. No scleral icterus. No injection or drainage. ENT: Nose without bleeding, purulent drainage or septal hematoma. Throat without erythema, tonsillar hypertrophy or exudate. Uvula midline. Airway patent. NECK: Trachea midline. No JVD or lymphadenopathy. Supple, nontender, no meningeal signs. CARDIOVASCULAR: Regular rate and rhythm without murmurs, gallops, or rubs. RESPIRATORY: Clear to auscultation. Breath sounds equal bilaterally. No wheezes , rales, or rhonchi. GASTROINTESTINAL: Abdomen soft, non-tender, nondistended. No hepato-splenomegaly , or palpable masses. No guarding. MUSCULOSKELETAL: Extremities without clubbing, cyanosis, or edema. No joint tenderness, effusion, or edema noted. No calf tenderness. Negative Homans sign bilaterally. NEUROLOGICAL: Awake and alert. Cranial nerves II through XII intact. Motor and sensory grossly within normal limits. Five out of 5 muscle strength in all muscle groups. Normal speech. Laboratory Laboratory Tests Test 11/16/16 11/16/16 18:15 19:05 White Blood Count 7.7 Red Blood Count 3.74 Hemoglobin 12.2 Hematocrit 36.6 Mean Corpuscular Volume 97.9 Mean Corpuscular Hemoglobin 32.5 Mean Corpuscular Hemoglobin 33.2 Concent Red Cell Distribution Width 14.0 Platelet Count 111 Mean Platelet Volume 5.8 Neutrophils (%) (Auto) 71.2 Lymphocytes (%) (Auto) 19.7 Monocytes (%) (Auto) 7.8 Eosinophils (%) (Auto) 0.7 Basophils (%) (Auto) 0.6 Neutrophils # (Auto) 5.5 Lymphocytes # (Auto) 1.5 Monocytes # (Auto) 0.6 Eosinophils # (Auto) 0.1 Basophils # (Auto) 0.0 CBC Comment DIFF FINAL Differential Comment Prothrombin Time 11.0 Prothromb Time International 1.0 Ratio Activated Partial 28.4 Thromboplast Time Sodium Level 150 Potassium Level 2.9 Chloride Level 118 Carbon Dioxide Level 22.6 Anion Gap 9 Blood Urea Nitrogen 2 Creatinine 0.75 Estimat Glomerular Filtration 107 Rate Random Glucose 91 Calcium Level 7.4 Protein Corrected Calcium 7.7 Total Bilirubin 0.6 Aspartate Amino Transf 44 (AST/SGOT) Alanine Aminotransferase 37 (ALT/SGPT) Alkaline Phosphatase 147 Troponin I LESS THAN 0.02 Total Protein 6.5 Albumin 3.0 Lipase 298 Ethyl Alcohol Level 403 Urine Color YELLOW Urine Turbidity CLEAR Urine pH 5.5 Urine Specific [place] 1.016 Urine Protein TRACE Urine Glucose (UA) NEG Urine Ketones NEG Urine Occult Blood MOD Urine Nitrite NEG Urine Bilirubin NEG Urine Urobilinogen LESS THAN 2.0 Urine Leukocyte Esterase NEG Urine RBC 9 Urine WBC 3 Urine Hyaline Casts 15 Urine Mucus FEW Microscopic Urinalysis Comment CULT NOT INDICATED Result Diagram: 11/16/16 1815 11/16/16 1815 Imaging Last 48 hours Impressions Abdomen/Pelvis CT 11/16/16 1808 Signed Impressions: Service Date/Time: October 20:20 - CONCLUSION: 1. Abnormal bowel gas pattern with apparent diffuse colonic wall thickening and indistinctness. There are multiple loops of borderline dilated small bowel with air-fluid levels. The findings are nonspecific but most consistent with colitis and possible ileus. 2. No definite free air or fluid. No oral contrast was given limiting the sensitivity. 3. High density layering dependently in the gallbladder which could represent gallbladder sludge. There is no definite calcifications. 4. Moderate hepatic steatosis. Wellington Alcaraz MD Chest X-Ray 11/16/16 0000 Signed Impressions: Service Date/Time: October 18:38 - CONCLUSION: No acute disease. Wellington Alcaraz MD Assessment and Plan Assessment and Plan impression: colitis dehydration alcohol withdrawal Plan: colitiis cipro/ flagyl replace electrolytes agrressively repeat pt may go to med surg with tele watch for withdrawal ativan prn dvt prophylaxis with lovenox gi prophyalxis on pantoprazole Physician Certification 2 Midnight Certification Type: Admission for Inpatient Services Order for Inpatient Services The services are ordered in accordance with Medicare regulations or non- Medicare payer requirements, as applicable. In the case of services not specified as inpatient-only, they are appropriately provided as inpatient services in accordance with the 2-midnight benchmark. Estimated LOS (days): 2 days is the estimated time the patient will need to remain in the hospital, assuming treatment plan goals are met and no additional complications. Post-Hospital Plan: Home Maddie Infante MD Nov 17, 2016 03:42
--- NOTE | 2016-11-17 05:03 | EKG ---
Date Performed: 11/16/2016 Time Performed: 18:56:43 PTAGE: 61 years EKG: Sinus rhythm NORMAL ECG WARNING: DATA QUALITY MAY AFFECT INTERPRETATION COMPARED TO PRIOR ELECTROCARDIOGRAM, Sinu s rhythm has replaced atrial flutter. PREVIOUS TRACING : 10/26/2016 20.40 DOCTOR: Richi Bello Interpretating Date/Time 11/17/2016 05:02:50
[2016-11-17 05:08] VITALS: BP 130/77; PULSE 81; RESP 20; TEMP 97.8; O2SAT 96
[2016-11-17 06:07] LABS: AUTOMATED NEUTROPHIL # 5.8 TH/MM3 (1.8-7.7); BASOPHIL # 0.1 TH/MM3 (0-0.2); BASOPHIL % 0.8 % (0.0-2.0); EOSINOPHIL # 0.1 TH/MM3 (0-0.4); EOSINOPHIL % 1.1 % (0.0-4.0); LYMPH % 18.2 % (9.0-44.0); LYMPHOCYTE # 1.5 TH/MM3 (1.0-4.8); MEAN CELL VOLUME 96.7 FL (80.0-100.0); MEAN CORPUSCULAR HEMOGLOBIN 32.6 PG (27.0-34.0); MEAN CORPUSCULAR HGB CONC 33.7 % (32.0-36.0); MONO % 9.5 % (0.0-8.0); NEUT % 70.4 % (16.0-70.0); PLATELET COUNT 89 TH/MM3 (150-450); RED BLOOD COUNT 3.72 MIL/MM3 (4.50-5.90); WHITE BLOOD COUNT 8.2 TH/MM3 (4.0-11.0)
[2016-11-17 06:12] LABS: HEMO FLAGS AUTO DIFF
[2016-11-17 07:02] LABS: BICARBONATE 24.9 MEQ/L (21.0-32.0); CALCIUM-PROTEIN CORRECTED 7.9 MG/DL (8.5-10.1); TOTAL BILIRUBIN ADULT 0.7 MG/DL (0.2-1.0)
[2016-11-17 08:00] VITALS: BP 128/69; PULSE 82; RESP 17; TEMP 97.3; O2SAT 96
[2016-11-17] MEDS: PANTOPRAZOLE SOD 40 MG DELAYED RELEASE TAB PO SCH (08:56)
[2016-11-17] MEDS: THIAMINE HCL 100 MG TAB PO SCH (08:56)
[2016-11-17] MEDS: ENOXAPARIN SODIUM 40 MG/0.4 ML SYRINGE SQ SCH (08:56)
[2016-11-17] MEDS: LORazepam 2 MG TAB PO PRN ×2 (08:56→14:19)
[2016-11-17] MEDS: SODIUM CHLORIDE 0.9% FLUSH 10 ML FLUSH IV FLUSH SCH ×2 (08:57→20:43)
[2016-11-17] MEDS: metroNIDAZOLE 500 MG INJ 100 ML IV SCH ×3 (08:58→22:00)
[2016-11-17] MEDS: SODIUM CHLOR 0.9% 1000 ML INJ 1,000 ML IV SCH ×2 (08:58→20:43)
[2016-11-17] MEDS: CIPROFLOXACIN 400 MG PREMIX 200 ML IV SCH ×2 (09:04→20:43)
[2016-11-17 09:34] LABS: BANDS 17 % (0-6); EOSINOPHILS 1 % (0-4); NEUTROPHIL # MANUAL DIFF 6.5 TH/MM3 (1.8-7.7); POLYS (SEG NEUTROPHILS) 62 % (16-70); WBC DIFF SAMPLE 100
[2016-11-17 09:35] LABS: OVALOCYTES 1+ (NORMAL); PLATELET ESTIMATE SMEAR LOW (NORMAL); PLATELET MORPHOLOGY NORMAL (NORMAL); SCAN/DIFF FINAL DIFF MANUAL
--- NOTE | 2016-11-17 09:56 | HHI.PR ---
Subjective Remarks resting with no distress. had four loose BM's over night. has mild lower abdominal pain. no fever. Objective Vitals Vital Signs Date Time Temp Pulse Resp B/P Pulse Ox O2 Delivery O2 Flow Rate FiO2 11/17/16 08:00 97.3 82 17 128/69 96 11/17/16 05:08 97.8 81 20 130/77 96 11/16/16 22:42 86 18 115/82 96 11/16/16 22:00 98.6 70 22 132/73 97 11/16/16 20:18 86 18 118/70 95 Room Air 11/16/16 17:53 88 19 11/16/16 17:53 98.4 88 19 118/70 95 Room Air 11/16/16 17:49 98.4 84 18 118/70 96 I/O 11/16/16 11/16/16 11/16/16 11/17/16 11/17/16 11/17/16 07:00 15:00 23:00 07:00 15:00 23:00 Intake Total 755 ml Output Total 425 ml Balance 330 ml Intake Oral 0 ml IV Total 755 ml Output Urine Total 425 ml # Voids 1 # Bowel Movements 1 Result Diagram: 11/17/16 0533 11/17/16 0533 Imaging Last Impressions Abdomen/Pelvis CT 11/16/16 1808 Signed Impressions: Service Date/Time: October 20:20 - CONCLUSION: 1. Abnormal bowel gas pattern with apparent diffuse colonic wall thickening and indistinctness. There are multiple loops of borderline dilated small bowel with air-fluid levels. The findings are nonspecific but most consistent with colitis and possible ileus. 2. No definite free air or fluid. No oral contrast was given limiting the sensitivity. 3. High density layering dependently in the gallbladder which could represent gallbladder sludge. There is no definite calcifications. 4. Moderate hepatic steatosis. Wellington Alcaraz MD Chest X-Ray 11/16/16 0000 Signed Impressions: Service Date/Time: October 18:38 - CONCLUSION: No acute disease. Wellington Alcaraz MD Objective Remarks GENERAL: This is a well-nourished, well-developed patient, in no apparent distress. CARDIOVASCULAR: Regular rate and regular rhythm without murmurs, gallops, or rubs. RESPIRATORY: Clear to auscultation. Breath sounds equal bilaterally. No wheezes , rales, or rhonchi. GASTROINTESTINAL: Abdomen soft, non-tender, nondistended. Normal, active bowel sounds MUSCULOSKELETAL: Extremities without clubbing, cyanosis, or edema. NEURO: Alert & Oriented x4 to person, place, time, situation. Moves all ext x4 Procedures none Medications and IVs Current Medications Sodium Chloride (NS 1000 ml Inj) 1,000 ml @ 1,000 mls/hr Q1H IV Last administered on 11/16/16 18:15; Start 11/16/16 at 18:08; Stop 11/16/16 at 19:07 ; Status DC Chlordiazepoxide (Librium) 25 mg ONCE PRN PO SEVERE ANXIETY OR AGITATION Last administered on 11/16/16 18:14; Start 11/16/16 at 18:15 Potassium Chloride 60 meq 60 meq ONCE ONCE PO Last administered on 11/16/16 19:40; Start 11/16/16 at 19:30; Stop 11/16/16 at 19:31; Status DC Calcium Gluconate 1 gm/Sodium Chloride 110 ml @ 110 mls/hr ONCE ONCE IV Last administered on 11/16/16 20:48; Start 11/16/16 at 20:00; Stop 11/16/16 at 20:59 ; Status DC Magnesium Sulfate/ Dextrose 100 ml @ 100 mls/hr ONCE ONCE IV Last administered on 11/16/16 22:20; Start 11/16/16 at 20:00; Stop 11/16/16 at 20:59 ; Status DC Sodium Chloride (NS 500 ml Inj) 500 ml @ 500 mls/hr BOLUS ONCE IV Last administered on 11/16/16 20:30; Start 11/16/16 at 20:00; Stop 11/16/16 at 20:59 ; Status DC Iohexol 100 ml 100 ml STK-MED ONCE IV Last administered on 11/16/16 20:24; Start 11/16/16 at 20:24; Stop 11/16/16 at 20:25; Status DC Ciprofloxacin/ Dextrose 200 ml @ 200 mls/hr ONCE ONCE IV Last administered on 11/16/16 22:20; Start 11/16/16 at 21:00; Stop 11/16/16 at 21:59; Status DC Metronidazole (Flagyl 250 Mg Inj) 50 ml @ 100 mls/hr ONCE ONCE IV ; Start at 21:00; Stop 11/16/16 at 21:29; Status DC Ondansetron HCl 4 mg 4 mg ONCE ONCE IV PUSH Last administered on 11/16/16 22: 21; Start 11/16/16 at 21:00; Stop 11/16/16 at 21:01; Status DC Sodium Chloride (NS 1000 ml Inj) 1,000 ml @ 100 mls/hr Q10H IV Last administered on 11/17/16 08:58; Start 11/16/16 at 22:00 Sodium Chloride (NS Flush) 2 ml UNSCH PRN IV FLUSH FLUSH AFTER USING IV ACCESS ; Start 11/16/16 at 21:45 Sodium Chloride (NS Flush) 2 ml BID IV FLUSH ; Start 11/17/16 at 09:00 Ondansetron HCl (Zofran Inj) 4 mg Q6H PRN IVP NAUSEA OR VOMITING; Start at 21:45 Naloxone HCl (Narcan Inj) 0.4 mg UNSCH PRN IV SEE LABEL COMMENTS; Start at 21:45 Flumazenil (Romazicon Inj) 0.2 mg Q1M PRN IV PUSH SEE LABEL COMMENTS; Start at 21:45 Lorazepam (Ativan) 1 mg Q4H PRN PO CIWA 8 - 10; Start 11/16/16 at 21:45 Lorazepam (Ativan Inj) 1 mg Q4H PRN IV PUSH CIWA 8 - 10; Start 11/16/16 at 21: 45 Lorazepam (Ativan) 2 mg Q2H PRN PO CIWA 11-14 Last administered on 11/17/16 08 :56; Start 11/16/16 at 21:45 Lorazepam (Ativan Inj) 2 mg Q2H PRN IV PUSH CIWA 11-14 Last administered on 06:51; Start 11/16/16 at 21:45 Lorazepam (Ativan Inj) 2 mg Q1H PRN IV PUSH CIWA 15-20; Start 11/16/16 at 21:45 Lorazepam (Ativan Inj) 2 mg Q15M PRN IV PUSH CIWA > 20; Start 11/16/16 at 21:45 Thiamine HCl (Vitamin B1) 100 mg ONCE ONCE PO Last administered on 11/16/16 22:21; Start 11/16/16 at 21:45; Stop 11/16/16 at 21:46; Status DC Thiamine HCl (Vitamin B1) 100 mg DAILY PO Last administered on 11/17/16 08:56 ; Start 11/17/16 at 09:00 Enoxaparin Sodium (Lovenox Inj) 40 mg Q24H SQ Last administered on 11/17/16 08 :56; Start 11/17/16 at 09:00 Pantoprazole Sodium 40 mg 40 mg DAILY PO Last administered on 11/17/16 08:56; Start 11/17/16 at 09:00 Ciprofloxacin/ Dextrose 200 ml @ 200 mls/hr Q12H IV Last administered on 09:04; Start 11/17/16 at 09:00 Metronidazole (Flagyl 500 Mg Inj) 100 ml @ 100 mls/hr Q6H IV Last administered on 11/17/16 08:58; Start 11/17/16 at 10:00 A/P Assessment and Plan A/P colitis continue cipro and Falgyl- stool work-up pending- will consider GI consult if no improvement within the next 24 hrs dehydration continue IV fluid hypokalemia; will replace and monitor alcohol withdrawal- on CIWA protocol DVT prophylaxis with SCD's Angelia Garcia MD Nov 17, 2016 09:56
[2016-11-17] MEDS ORDERED: POTASSIUM CHLORIDE 10 MEQ CONTROLLED RELEASE TAB PO ONE ×2 (10:00→14:00)
[2016-11-17 12:00] VITALS: BP 134/82; PULSE 80; RESP 17; TEMP 96.8; O2SAT 97
[2016-11-17 16:00] VITALS: BP 139/76; PULSE 89; RESP 17; TEMP 97.9; O2SAT 96
[2016-11-17 20:00] VITALS: BP 121/68; PULSE 68; PULSE 73; RESP 18; TEMP 97.7; O2SAT 97
[2016-11-17 22:27] LABS: C. DIFF EPI 027 PRESUMPTIVE NEGATIVE (NEGATIVE)
[2016-11-17 22:35] LABS: C. DIFF TOXIN PCR POSITIVE (NEGATIVE)
[2016-11-18] VITALS: BP 114/63; PULSE 58; RESP 16; TEMP 98; O2SAT 98
[2016-11-18] MEDS: LORazepam 2 MG/ML VIAL IV PUSH PRN ×8 (00:40→20:38)
[2016-11-18 04:00] VITALS: BP 124/79; PULSE 69; RESP 16; TEMP 97.4; O2SAT 97
[2016-11-18] MEDS: metroNIDAZOLE 500 MG TAB PO SCH ×3 (05:03→20:36)
[2016-11-18] MEDS: SODIUM CHLOR 0.9% 1000 ML INJ 1,000 ML IV SCH ×3 (05:05→20:40)
[2016-11-18 07:05] LABS: BICARBONATE 25.5 MEQ/L (21.0-32.0)
[2016-11-18 07:09] LABS: POTASSIUM 2.9 MEQ/L (3.5-5.1)
[2016-11-18] MEDS: THIAMINE HCL 100 MG TAB PO SCH (07:57)
[2016-11-18] MEDS: PANTOPRAZOLE SOD 40 MG DELAYED RELEASE TAB PO SCH (07:57)
[2016-11-18] MEDS: ENOXAPARIN SODIUM 40 MG/0.4 ML SYRINGE SQ SCH (07:57)
[2016-11-18] MEDS: SODIUM CHLORIDE 0.9% FLUSH 10 ML FLUSH IV FLUSH SCH ×2 (07:58→20:38)
[2016-11-18 08:00] VITALS: BP 154/85; PULSE 72; RESP 18; TEMP 97.3; O2SAT 96
--- NOTE | 2016-11-18 08:50 | HHI.PR ---
Subjective Remarks resting comfortably with no distress. no abdominal pain, nausea or vomiting. had a few loose BM's last night but he says that ' it's slightly better today'. no fever. Objective Vitals Vital Signs Date Time Temp Pulse Resp B/P Pulse Ox O2 Delivery O2 Flow Rate FiO2 11/18/16 08:00 97.3 72 18 154/85 96 11/18/16 04:00 97.4 69 16 124/79 97 11/18/16 04:00 Room Air 11/18/16 00:00 Room Air 11/18/16 00:00 98.0 58 16 114/63 98 11/17/16 20:00 Room Air 11/17/16 20:00 97.7 73 18 121/68 97 11/17/16 20:00 68 11/17/16 16:00 97.9 89 17 139/76 96 11/17/16 12:00 96.8 80 17 134/82 97 I/O 11/17/16 11/17/16 11/17/16 11/18/16 11/18/16 11/18/16 07:00 15:00 23:00 07:00 15:00 23:00 Intake Total 755 ml 480 ml 1801 ml 1026 ml Output Total 425 ml 950 ml 900 ml Balance 330 ml -470 ml 901 ml 1026 ml Intake Oral 0 ml 480 ml 240 ml IV Total 755 ml 1801 ml 786 ml Output Urine Total 425 ml 950 ml 900 ml # Voids 1 2 # Bowel Movements 1 1 1 2 Result Diagram: 11/17/16 0533 11/18/16 0511 Imaging Last Impressions Abdomen/Pelvis CT 11/16/16 1808 Signed Impressions: Service Date/Time: October 20:20 - CONCLUSION: 1. Abnormal bowel gas pattern with apparent diffuse colonic wall thickening and indistinctness. There are multiple loops of borderline dilated small bowel with air-fluid levels. The findings are nonspecific but most consistent with colitis and possible ileus. 2. No definite free air or fluid. No oral contrast was given limiting the sensitivity. 3. High density layering dependently in the gallbladder which could represent gallbladder sludge. There is no definite calcifications. 4. Moderate hepatic steatosis. Wellington Alcaraz MD Chest X-Ray 11/16/16 0000 Signed Impressions: Service Date/Time: October 18:38 - CONCLUSION: No acute disease. Wellington Alcaraz MD Objective Remarks GENERAL: This is a well-nourished, well-developed patient, in no apparent distress. CARDIOVASCULAR: Regular rate and regular rhythm without murmurs, gallops, or rubs. RESPIRATORY: Clear to auscultation. Breath sounds equal bilaterally. No wheezes , rales, or rhonchi. GASTROINTESTINAL: Abdomen soft, non-tender, nondistended. Normal, active bowel sounds MUSCULOSKELETAL: Extremities without clubbing, cyanosis, or edema. NEURO: Alert & Oriented x4 to person, place, time, situation. Moves all ext x4 Procedures none Medications and IVs Current Medications Sodium Chloride (NS 1000 ml Inj) 1,000 ml @ 1,000 mls/hr Q1H IV Last administered on 11/16/16 18:15; Start 11/16/16 at 18:08; Stop 11/16/16 at 19:07 ; Status DC Chlordiazepoxide (Librium) 25 mg ONCE PRN PO SEVERE ANXIETY OR AGITATION Last administered on 11/16/16 18:14; Start 11/16/16 at 18:15 Potassium Chloride 60 meq 60 meq ONCE ONCE PO Last administered on 11/16/16 19:40; Start 11/16/16 at 19:30; Stop 11/16/16 at 19:31; Status DC Calcium Gluconate 1 gm/Sodium Chloride 110 ml @ 110 mls/hr ONCE ONCE IV Last administered on 11/16/16 20:48; Start 11/16/16 at 20:00; Stop 11/16/16 at 20:59 ; Status DC Magnesium Sulfate/ Dextrose 100 ml @ 100 mls/hr ONCE ONCE IV Last administered on 11/16/16 22:20; Start 11/16/16 at 20:00; Stop 11/16/16 at 20:59 ; Status DC Sodium Chloride (NS 500 ml Inj) 500 ml @ 500 mls/hr BOLUS ONCE IV Last administered on 11/16/16 20:30; Start 11/16/16 at 20:00; Stop 11/16/16 at 20:59 ; Status DC Iohexol 100 ml 100 ml STK-MED ONCE IV Last administered on 11/16/16 20:24; Start 11/16/16 at 20:24; Stop 11/16/16 at 20:25; Status DC Ciprofloxacin/ Dextrose 200 ml @ 200 mls/hr ONCE ONCE IV Last administered on 11/16/16 22:20; Start 11/16/16 at 21:00; Stop 11/16/16 at 21:59; Status DC Metronidazole (Flagyl 250 Mg Inj) 50 ml @ 100 mls/hr ONCE ONCE IV ; Start at 21:00; Stop 11/16/16 at 21:29; Status DC Ondansetron HCl 4 mg 4 mg ONCE ONCE IV PUSH Last administered on 11/16/16 22: 21; Start 11/16/16 at 21:00; Stop 11/16/16 at 21:01; Status DC Sodium Chloride (NS 1000 ml Inj) 1,000 ml @ 100 mls/hr Q10H IV Last administered on 11/18/16 05:05; Start 11/16/16 at 22:00 Sodium Chloride (NS Flush) 2 ml UNSCH PRN IV FLUSH FLUSH AFTER USING IV ACCESS ; Start 11/16/16 at 21:45 Sodium Chloride (NS Flush) 2 ml BID IV FLUSH Last administered on 11/18/16 07: 58; Start 11/17/16 at 09:00 Ondansetron HCl (Zofran Inj) 4 mg Q6H PRN IVP NAUSEA OR VOMITING; Start at 21:45 Naloxone HCl (Narcan Inj) 0.4 mg UNSCH PRN IV SEE LABEL COMMENTS; Start at 21:45 Flumazenil (Romazicon Inj) 0.2 mg Q1M PRN IV PUSH SEE LABEL COMMENTS; Start at 21:45 Lorazepam (Ativan) 1 mg Q4H PRN PO CIWA 8 - 10; Start 11/16/16 at 21:45 Lorazepam (Ativan Inj) 1 mg Q4H PRN IV PUSH CIWA 8 - 10 Last administered on 07:57; Start 11/16/16 at 21:45 Lorazepam (Ativan) 2 mg Q2H PRN PO CIWA 11-14 Last administered on 11/17/16 14 :19; Start 11/16/16 at 21:45 Lorazepam (Ativan Inj) 2 mg Q2H PRN IV PUSH CIWA 11-14 Last administered on 11/18 05:04; Start 11/16/16 at 21:45 Lorazepam (Ativan Inj) 2 mg Q1H PRN IV PUSH CIWA 15-20; Start 11/16/16 at 21:45 Lorazepam (Ativan Inj) 2 mg Q15M PRN IV PUSH CIWA > 20; Start 11/16/16 at 21:45 Thiamine HCl (Vitamin B1) 100 mg ONCE ONCE PO Last administered on 11/16/16 22:21; Start 11/16/16 at 21:45; Stop 11/16/16 at 21:46; Status DC Thiamine HCl (Vitamin B1) 100 mg DAILY PO Last administered on 11/18/16 07:57; Start 11/17/16 at 09:00 Enoxaparin Sodium (Lovenox Inj) 40 mg Q24H SQ Last administered on 11/18/16 07: 57; Start 11/17/16 at 09:00 Pantoprazole Sodium 40 mg 40 mg DAILY PO Last administered on 11/18/16 07:57; Start 11/17/16 at 09:00 Ciprofloxacin/ Dextrose 200 ml @ 200 mls/hr Q12H IV Last administered on 20:43; Start 11/17/16 at 09:00; Stop 11/17/16 at 23:04; Status DC Metronidazole (Flagyl 500 Mg Inj) 100 ml @ 100 mls/hr Q6H IV Last administered on 11/17/16 22:00; Start 11/17/16 at 10:00; Stop 11/17/16 at 23:04 ; Status DC Potassium Chloride (KCl) 40 meq ONCE ONCE PO Last administered on 11/17/16 14 :15; Start 11/17/16 at 10:00; Stop 11/17/16 at 10:01; Status DC Potassium Chloride (KCl) 40 meq ONCE ONCE PO Last administered on 11/17/16 17 :08; Start 11/17/16 at 14:00; Stop 11/17/16 at 14:01; Status DC Metronidazole (Flagyl) 500 mg Q8HR PO Last administered on 11/18/16 05:03; Start 11/18/16 at 06:00 A/P Assessment and Plan A/P C-diff colitis continue Falgyl- rest of stool work-up pending- dehydration continue IV fluid hypokalemia; will replace and monitor alcohol abuse- on CIWA protocol and thiamine thrombocytopenia- chronic due to alcohol- will monitor DVT prophylaxis with SCD's Angelia Garcia MD Nov 18, 2016 08:50
[2016-11-18] MEDS ORDERED: POTASSIUM CHLORIDE 20 MEQ CONTROLLED RELEASE TAB PO ONE ×3 (09:15→17:00)
[2016-11-18 12:00] VITALS: BP 117/73; PULSE 85; RESP 17; TEMP 98.6; O2SAT 96
[2016-11-18 16:00] VITALS: BP 122/74; PULSE 72; RESP 17; TEMP 97.6; O2SAT 96
[2016-11-18 20:00] VITALS: BP 131/80; PULSE 86; RESP 17; TEMP 97.2; O2SAT 97
[2016-11-19] VITALS: BP 160/91; PULSE 68; RESP 20; TEMP 97.9; O2SAT 98
[2016-11-19] MEDS: metroNIDAZOLE 500 MG TAB PO SCH ×3 (03:32→19:50)
[2016-11-19] MEDS: LORazepam 2 MG/ML VIAL IV PUSH PRN (03:32)
[2016-11-19 04:00] VITALS: BP 140/81; PULSE 61; RESP 20; TEMP 96.5; O2SAT 97
[2016-11-19] MEDS: LORazepam 1 MG TAB PO PRN ×3 (07:45→19:51)
[2016-11-19] MEDS: ENOXAPARIN SODIUM 40 MG/0.4 ML SYRINGE SQ SCH (07:46)
[2016-11-19] MEDS: PANTOPRAZOLE SOD 40 MG DELAYED RELEASE TAB PO SCH (07:46)
[2016-11-19] MEDS: THIAMINE HCL 100 MG TAB PO SCH (07:46)
[2016-11-19] MEDS: SODIUM CHLORIDE 0.9% FLUSH 10 ML FLUSH IV FLUSH SCH ×2 (07:47→19:52)
[2016-11-19 08:00] VITALS: BP 122/71; PULSE 62; RESP 17; TEMP 98.2; O2SAT 96
[2016-11-19 08:19] LABS: BICARBONATE 26.7 MEQ/L (21.0-32.0); POTASSIUM 3.4 MEQ/L (3.5-5.1)
--- NOTE | 2016-11-19 08:52 | HHI.PR ---
Subjective Remarks resting comfortably with no distress. denies pain. no fever. diarrhea is better; less frequent and not as loose. Objective Vitals Vital Signs Date Time Temp Pulse Resp B/P Pulse Ox O2 Delivery O2 Flow Rate FiO2 11/19/16 08:00 98.2 62 17 122/71 96 11/19/16 04:00 96.5 61 20 140/81 97 11/19/16 00:00 97.9 68 20 160/91 98 11/18/16 20:00 97.2 86 17 131/80 97 11/18/16 16:00 97.6 72 17 122/74 96 11/18/16 12:00 98.6 85 17 117/73 96 I/O 11/18/16 11/18/16 11/18/16 11/19/16 11/19/16 11/19/16 07:00 15:00 23:00 07:00 15:00 23:00 Intake Total 1026 ml 240 ml 1280 ml 240 ml Output Total 2 ml Balance 1026 ml 240 ml 1278 ml 240 ml Intake Oral 240 ml 240 ml 480 ml 240 ml IV Total 786 ml 800 ml Stool Total 2 ml # Voids 2 4 3 1 # Bowel Movements 2 3 1 Result Diagram: 11/17/16 0533 11/19/16 0718 Imaging Last Impressions Abdomen/Pelvis CT 11/16/16 1808 Signed Impressions: Service Date/Time: October 20:20 - CONCLUSION: 1. Abnormal bowel gas pattern with apparent diffuse colonic wall thickening and indistinctness. There are multiple loops of borderline dilated small bowel with air-fluid levels. The findings are nonspecific but most consistent with colitis and possible ileus. 2. No definite free air or fluid. No oral contrast was given limiting the sensitivity. 3. High density layering dependently in the gallbladder which could represent gallbladder sludge. There is no definite calcifications. 4. Moderate hepatic steatosis. Wellington Alcaraz MD Chest X-Ray 11/16/16 0000 Signed Impressions: Service Date/Time: October 18:38 - CONCLUSION: No acute disease. Wellington Alcaraz MD Objective Remarks GENERAL: This is a well-nourished, well-developed patient, in no apparent distress. CARDIOVASCULAR: Regular rate and regular rhythm without murmurs, gallops, or rubs. RESPIRATORY: Clear to auscultation. Breath sounds equal bilaterally. No wheezes , rales, or rhonchi. GASTROINTESTINAL: Abdomen soft, non-tender, nondistended. Normal, active bowel sounds MUSCULOSKELETAL: Extremities without clubbing, cyanosis, or edema. NEURO: Alert & Oriented x4 to person, place, time, situation. Moves all ext x4 Procedures none Medications and IVs Current Medications Sodium Chloride (NS 1000 ml Inj) 1,000 ml @ 1,000 mls/hr Q1H IV Last administered on 11/16/16 18:15; Start 11/16/16 at 18:08; Stop 11/16/16 at 19:07 ; Status DC Chlordiazepoxide (Librium) 25 mg ONCE PRN PO SEVERE ANXIETY OR AGITATION Last administered on 11/16/16 18:14; Start 11/16/16 at 18:15 Potassium Chloride 60 meq 60 meq ONCE ONCE PO Last administered on 11/16/16 19:40; Start 11/16/16 at 19:30; Stop 11/16/16 at 19:31; Status DC Calcium Gluconate 1 gm/Sodium Chloride 110 ml @ 110 mls/hr ONCE ONCE IV Last administered on 11/16/16 20:48; Start 11/16/16 at 20:00; Stop 11/16/16 at 20:59 ; Status DC Magnesium Sulfate/ Dextrose 100 ml @ 100 mls/hr ONCE ONCE IV Last administered on 11/16/16 22:20; Start 11/16/16 at 20:00; Stop 11/16/16 at 20:59 ; Status DC Sodium Chloride (NS 500 ml Inj) 500 ml @ 500 mls/hr BOLUS ONCE IV Last administered on 11/16/16 20:30; Start 11/16/16 at 20:00; Stop 11/16/16 at 20:59 ; Status DC Iohexol 100 ml 100 ml STK-MED ONCE IV Last administered on 11/16/16 20:24; Start 11/16/16 at 20:24; Stop 11/16/16 at 20:25; Status DC Ciprofloxacin/ Dextrose 200 ml @ 200 mls/hr ONCE ONCE IV Last administered on 11/16/16 22:20; Start 11/16/16 at 21:00; Stop 11/16/16 at 21:59; Status DC Metronidazole (Flagyl 250 Mg Inj) 50 ml @ 100 mls/hr ONCE ONCE IV ; Start at 21:00; Stop 11/16/16 at 21:29; Status DC Ondansetron HCl 4 mg 4 mg ONCE ONCE IV PUSH Last administered on 11/16/16 22: 21; Start 11/16/16 at 21:00; Stop 11/16/16 at 21:01; Status DC Sodium Chloride (NS 1000 ml Inj) 1,000 ml @ 100 mls/hr Q10H IV Last administered on 11/18/16 20:40; Start 11/16/16 at 22:00 Sodium Chloride (NS Flush) 2 ml UNSCH PRN IV FLUSH FLUSH AFTER USING IV ACCESS ; Start 11/16/16 at 21:45 Sodium Chloride (NS Flush) 2 ml BID IV FLUSH Last administered on 11/18/16 20: 38; Start 11/17/16 at 09:00 Ondansetron HCl (Zofran Inj) 4 mg Q6H PRN IVP NAUSEA OR VOMITING Last administered on 11/18/16 15:26; Start 11/16/16 at 21:45 Naloxone HCl (Narcan Inj) 0.4 mg UNSCH PRN IV SEE LABEL COMMENTS; Start at 21:45 Flumazenil (Romazicon Inj) 0.2 mg Q1M PRN IV PUSH SEE LABEL COMMENTS; Start at 21:45 Lorazepam (Ativan) 1 mg Q4H PRN PO CIWA 8 - 10 Last administered on 11/19/16 07 :45; Start 11/16/16 at 21:45 Lorazepam (Ativan Inj) 1 mg Q4H PRN IV PUSH CIWA 8 - 10 Last administered on 03:32; Start 11/16/16 at 21:45 Lorazepam (Ativan) 2 mg Q2H PRN PO CIWA 11-14 Last administered on 11/17/16 14 :19; Start 11/16/16 at 21:45 Lorazepam (Ativan Inj) 2 mg Q2H PRN IV PUSH CIWA 11-14 Last administered on 11/18 20:38; Start 11/16/16 at 21:45 Lorazepam (Ativan Inj) 2 mg Q1H PRN IV PUSH CIWA 15-20; Start 11/16/16 at 21:45 Lorazepam (Ativan Inj) 2 mg Q15M PRN IV PUSH CIWA > 20; Start 11/16/16 at 21:45 Thiamine HCl (Vitamin B1) 100 mg ONCE ONCE PO Last administered on 11/16/16 22:21; Start 11/16/16 at 21:45; Stop 11/16/16 at 21:46; Status DC Thiamine HCl (Vitamin B1) 100 mg DAILY PO Last administered on 11/19/16 07:46; Start 11/17/16 at 09:00 Enoxaparin Sodium (Lovenox Inj) 40 mg Q24H SQ Last administered on 11/19/16 07: 46; Start 11/17/16 at 09:00 Pantoprazole Sodium 40 mg 40 mg DAILY PO Last administered on 11/19/16 07:46; Start 11/17/16 at 09:00 Ciprofloxacin/ Dextrose 200 ml @ 200 mls/hr Q12H IV Last administered on 20:43; Start 11/17/16 at 09:00; Stop 11/17/16 at 23:04; Status DC Metronidazole (Flagyl 500 Mg Inj) 100 ml @ 100 mls/hr Q6H IV Last administered on 11/17/16 22:00; Start 11/17/16 at 10:00; Stop 11/17/16 at 23:04 ; Status DC Potassium Chloride (KCl) 40 meq ONCE ONCE PO Last administered on 11/17/16 14 :15; Start 11/17/16 at 10:00; Stop 11/17/16 at 10:01; Status DC Potassium Chloride (KCl) 40 meq ONCE ONCE PO Last administered on 11/17/16 17 :08; Start 11/17/16 at 14:00; Stop 11/17/16 at 14:01; Status DC Metronidazole (Flagyl) 500 mg Q8HR PO Last administered on 11/19/16 03:32; Start 11/18/16 at 06:00 Potassium Chloride (KCl) 40 meq ONCE ONCE PO Last administered on 11/18/16 09: 28; Start 11/18/16 at 09:15; Stop 11/18/16 at 09:16; Status DC Potassium Chloride (KCl) 40 meq ONCE ONCE PO Last administered on 11/18/16 13: 08; Start 11/18/16 at 13:00; Stop 11/18/16 at 13:01; Status DC Potassium Chloride (KCl) 40 meq ONCE ONCE PO Last administered on 11/18/16 17: 38; Start 11/18/16 at 17:00; Stop 11/18/16 at 17:01; Status DC A/P Assessment and Plan A/P C-diff colitis continue Falgyl- dehydration-improved. continue IV fluid hypokalemia; better- will replace. alcohol abuse- on CIWA protocol and thiamine thrombocytopenia- chronic due to alcohol- will monitor DVT prophylaxis with SCD's Discharge Planning dc home tomorrow if continues to improve. Angelia Garcia MD Nov 19, 2016 08:52
[2016-11-19] MEDS ORDERED: METR-1 PO (08:53)
[2016-11-19] MEDS ORDERED: GNP100TA3 PO (08:53)
[2016-11-19] MEDS ORDERED: MULT1TAB46 PO (08:53)
--- NOTE | 2016-11-19 08:54 | HHI.DCPOC ---
Discharge Care Plan Diagnosis: (1) C. difficile colitis Your Health Problems Are: Irregular Bowel Function Goals to Promote Your Health * To prevent worsening of your condition and complications * To maintain your health at the optimal level Directions to Meet Your Goals Take your medications as prescribed Follow your dietary instruction Follow activity as directed Keep your appointments as scheduled Take your immunizations and boosters as scheduled If your symptoms worsen call your PCP, if no PCP go to Urgent Care Center or Emergency Room Smoking is Dangerous to Your Health. Avoid second hand smoke Call the 24-hour hour crisis hotline for domestic abuse at Angelia Garcia MD Nov 19, 2016 08:54
[2016-11-19] MEDS ORDERED: POTASSIUM CHLORIDE 20 MEQ CONTROLLED RELEASE TAB PO ONE (09:00)
[2016-11-19 12:00] VITALS: BP 119/70; PULSE 80; RESP 17; TEMP 98.1; O2SAT 95
[2016-11-19 16:00] VITALS: BP 131/81; PULSE 72; RESP 18; TEMP 98.4; O2SAT 98
[2016-11-19] MEDS: chlordiazePOXIDE 25 MG CAP PO PRN (19:50)
[2016-11-19 20:00] VITALS: BP 149/79; PULSE 63; RESP 20; TEMP 98.7; O2SAT 97
[2016-11-19] MEDS ORDERED: SODIUM CHLOR 0.9% 1000 ML INJ 1,000 ML IV ONE (22:00)
[2016-11-20] VITALS: BP 130/81; PULSE 63; RESP 20; TEMP 97.7; O2SAT 98
[2016-11-20] MEDS: metroNIDAZOLE 500 MG TAB PO SCH ×3 (05:45→20:59)
[2016-11-20] MEDS: LORazepam 1 MG TAB PO PRN ×4 (05:45→18:08)
[2016-11-20 08:00] VITALS: BP 136/86; PULSE 72; RESP 18; TEMP 96.5; O2SAT 95
[2016-11-20] MEDS: ENOXAPARIN SODIUM 40 MG/0.4 ML SYRINGE SQ SCH (08:14)
[2016-11-20] MEDS: THIAMINE HCL 100 MG TAB PO SCH (08:14)
[2016-11-20] MEDS: SODIUM CHLORIDE 0.9% FLUSH 10 ML FLUSH IV FLUSH SCH ×2 (08:14→20:59)
[2016-11-20] MEDS: PANTOPRAZOLE SOD 40 MG DELAYED RELEASE TAB PO SCH (08:14)
--- NOTE | 2016-11-20 09:08 | HHI.PR ---
Subjective Remarks feels ' shaky' today with some hand tremors. he says that 'he's not feeling good today'. had a few BM's last night but he says that they're not ' as loose'. afebrile. Objective Vitals Vital Signs Date Time Temp Pulse Resp B/P Pulse Ox O2 Delivery O2 Flow Rate FiO2 11/20/16 08:00 96.5 72 18 136/86 95 11/20/16 00:00 97.7 63 20 130/81 98 11/19/16 20:00 98.7 63 20 149/79 97 11/19/16 16:00 98.4 72 18 131/81 98 11/19/16 12:00 98.1 80 17 119/70 95 I/O 11/19/16 11/19/16 11/19/16 11/20/16 11/20/16 11/20/16 07:00 15:00 23:00 07:00 15:00 23:00 Intake Total 240 ml 1812 ml 740 ml 740 ml Balance 240 ml 1812 ml 740 ml 740 ml Intake Oral 240 ml 240 ml 240 ml 240 ml IV Total 1572 ml 500 ml 500 ml # Voids 1 5 2 3 1 # Bowel Movements 1 3 1 0 1 Result Diagram: 11/17/16 0533 11/19/16 0718 Imaging Last Impressions Abdomen/Pelvis CT 11/16/16 1808 Signed Impressions: Service Date/Time: October 20:20 - CONCLUSION: 1. Abnormal bowel gas pattern with apparent diffuse colonic wall thickening and indistinctness. There are multiple loops of borderline dilated small bowel with air-fluid levels. The findings are nonspecific but most consistent with colitis and possible ileus. 2. No definite free air or fluid. No oral contrast was given limiting the sensitivity. 3. High density layering dependently in the gallbladder which could represent gallbladder sludge. There is no definite calcifications. 4. Moderate hepatic steatosis. Wellington Alcaraz MD Chest X-Ray 11/16/16 0000 Signed Impressions: Service Date/Time: October 18:38 - CONCLUSION: No acute disease. Wellington Alcaraz MD Objective Remarks GENERAL: This is a well-nourished, well-developed patient, in no apparent distress. CARDIOVASCULAR: Regular rate and regular rhythm without murmurs, gallops, or rubs. RESPIRATORY: Clear to auscultation. Breath sounds equal bilaterally. No wheezes , rales, or rhonchi. GASTROINTESTINAL: Abdomen soft, non-tender, nondistended. Normal, active bowel sounds MUSCULOSKELETAL: Extremities without clubbing, cyanosis, or edema. NEURO: Alert & Oriented x4 to person, place, time, situation. Moves all ext x4 Procedures none Medications and IVs Current Medications Sodium Chloride (NS 1000 ml Inj) 1,000 ml @ 1,000 mls/hr Q1H IV Last administered on 11/16/16 18:15; Start 11/16/16 at 18:08; Stop 11/16/16 at 19:07 ; Status DC Chlordiazepoxide (Librium) 25 mg ONCE PRN PO SEVERE ANXIETY OR AGITATION Last administered on 11/19/16 19:50; Start 11/16/16 at 18:15 Potassium Chloride 60 meq 60 meq ONCE ONCE PO Last administered on 11/16/16 19:40; Start 11/16/16 at 19:30; Stop 11/16/16 at 19:31; Status DC Calcium Gluconate 1 gm/Sodium Chloride 110 ml @ 110 mls/hr ONCE ONCE IV Last administered on 11/16/16 20:48; Start 11/16/16 at 20:00; Stop 11/16/16 at 20:59 ; Status DC Magnesium Sulfate/ Dextrose 100 ml @ 100 mls/hr ONCE ONCE IV Last administered on 11/16/16 22:20; Start 11/16/16 at 20:00; Stop 11/16/16 at 20:59 ; Status DC Sodium Chloride (NS 500 ml Inj) 500 ml @ 500 mls/hr BOLUS ONCE IV Last administered on 11/16/16 20:30; Start 11/16/16 at 20:00; Stop 11/16/16 at 20:59 ; Status DC Iohexol 100 ml 100 ml STK-MED ONCE IV Last administered on 11/16/16 20:24; Start 11/16/16 at 20:24; Stop 11/16/16 at 20:25; Status DC Ciprofloxacin/ Dextrose 200 ml @ 200 mls/hr ONCE ONCE IV Last administered on 11/16/16 22:20; Start 11/16/16 at 21:00; Stop 11/16/16 at 21:59; Status DC Metronidazole (Flagyl 250 Mg Inj) 50 ml @ 100 mls/hr ONCE ONCE IV ; Start at 21:00; Stop 11/16/16 at 21:29; Status DC Ondansetron HCl 4 mg 4 mg ONCE ONCE IV PUSH Last administered on 11/16/16 22: 21; Start 11/16/16 at 21:00; Stop 11/16/16 at 21:01; Status DC Sodium Chloride (NS 1000 ml Inj) 1,000 ml @ 100 mls/hr Q10H IV Last administered on 11/18/16 20:40; Start 11/16/16 at 22:00; Stop 11/19/16 at 08:51; Status DC Sodium Chloride (NS Flush) 2 ml UNSCH PRN IV FLUSH FLUSH AFTER USING IV ACCESS ; Start 11/16/16 at 21:45 Sodium Chloride (NS Flush) 2 ml BID IV FLUSH Last administered on 11/20/16 08: 14; Start 11/17/16 at 09:00 Ondansetron HCl (Zofran Inj) 4 mg Q6H PRN IVP NAUSEA OR VOMITING Last administered on 11/18/16 15:26; Start 11/16/16 at 21:45 Naloxone HCl (Narcan Inj) 0.4 mg UNSCH PRN IV SEE LABEL COMMENTS; Start at 21:45 Flumazenil (Romazicon Inj) 0.2 mg Q1M PRN IV PUSH SEE LABEL COMMENTS; Start at 21:45 Lorazepam (Ativan) 1 mg Q4H PRN PO CIWA 8 - 10 Last administered on 11/20/16 05 :45; Start 11/16/16 at 21:45 Lorazepam (Ativan Inj) 1 mg Q4H PRN IV PUSH CIWA 8 - 10 Last administered on 03:32; Start 11/16/16 at 21:45 Lorazepam (Ativan) 2 mg Q2H PRN PO CIWA 11-14 Last administered on 11/17/16 14 :19; Start 11/16/16 at 21:45 Lorazepam (Ativan Inj) 2 mg Q2H PRN IV PUSH CIWA 11-14 Last administered on 11/18 20:38; Start 11/16/16 at 21:45 Lorazepam (Ativan Inj) 2 mg Q1H PRN IV PUSH CIWA 15-20; Start 11/16/16 at 21:45 Lorazepam (Ativan Inj) 2 mg Q15M PRN IV PUSH CIWA > 20; Start 11/16/16 at 21:45 Thiamine HCl (Vitamin B1) 100 mg ONCE ONCE PO Last administered on 11/16/16 22:21; Start 11/16/16 at 21:45; Stop 11/16/16 at 21:46; Status DC Thiamine HCl (Vitamin B1) 100 mg DAILY PO Last administered on 11/20/16 08:14; Start 11/17/16 at 09:00 Enoxaparin Sodium (Lovenox Inj) 40 mg Q24H SQ Last administered on 11/20/16 08: 14; Start 11/17/16 at 09:00 Pantoprazole Sodium 40 mg 40 mg DAILY PO Last administered on 11/20/16 08:14; Start 11/17/16 at 09:00 Ciprofloxacin/ Dextrose 200 ml @ 200 mls/hr Q12H IV Last administered on 20:43; Start 11/17/16 at 09:00; Stop 11/17/16 at 23:04; Status DC Metronidazole (Flagyl 500 Mg Inj) 100 ml @ 100 mls/hr Q6H IV Last administered on 11/17/16 22:00; Start 11/17/16 at 10:00; Stop 11/17/16 at 23:04 ; Status DC Potassium Chloride (KCl) 40 meq ONCE ONCE PO Last administered on 11/17/16 14 :15; Start 11/17/16 at 10:00; Stop 11/17/16 at 10:01; Status DC Potassium Chloride (KCl) 40 meq ONCE ONCE PO Last administered on 11/17/16 17 :08; Start 11/17/16 at 14:00; Stop 11/17/16 at 14:01; Status DC Metronidazole (Flagyl) 500 mg Q8HR PO Last administered on 11/20/16 05:45; Start 11/18/16 at 06:00 Potassium Chloride (KCl) 40 meq ONCE ONCE PO Last administered on 11/18/16 09: 28; Start 11/18/16 at 09:15; Stop 11/18/16 at 09:16; Status DC Potassium Chloride (KCl) 40 meq ONCE ONCE PO Last administered on 11/18/16 13: 08; Start 11/18/16 at 13:00; Stop 11/18/16 at 13:01; Status DC Potassium Chloride (KCl) 40 meq ONCE ONCE PO Last administered on 11/18/16 17: 38; Start 11/18/16 at 17:00; Stop 11/18/16 at 17:01; Status DC Potassium Chloride 40 meq 40 meq ONCE ONCE PO Last administered on 11/19/16 09 :26; Start 11/19/16 at 09:00; Stop 11/19/16 at 09:01; Status DC Sodium Chloride (NS 1000 ml Inj) 1,000 ml @ 60 mls/hr [id number] ONCE IV Last administered on 11/19/16 19:52; Start 11/19/16 at 22:00; Stop 11/20/16 at 14:39 A/P Assessment and Plan A/P -C-diff colitis- improving continue Flagyl- -alcohol withdrawal continue with CIWA protocol and thiamine- consult PT hypokalemia; replaced. thrombocytopenia- chronic due to alcohol- will monitor DVT prophylaxis with SCD's Discharge Planning will observe today- possible dc home tomorrow if stable. Angelia Garcia MD Nov 20, 2016 09:08
[2016-11-20] MEDS: MULTIVITAMIN TAB PO SCH (10:02)
[2016-11-20 12:00] VITALS: BP 128/79; PULSE 80; RESP 17; TEMP 96.4; O2SAT 96
[2016-11-20 12:30] LABS: BICARBONATE 24.9 MEQ/L (21.0-32.0); POTASSIUM 3.3 MEQ/L (3.5-5.1)
[2016-11-20 16:00] VITALS: BP 131/81; PULSE 76; RESP 18; TEMP 99.1; O2SAT 98
[2016-11-20 20:00] VITALS: BP 127/78; PULSE 66; RESP 18; TEMP 98.1; O2SAT 97
[2016-11-21] VITALS: BP 124/71; PULSE 59; RESP 16; TEMP 98; O2SAT 98
[2016-11-21] MEDS: LORazepam 1 MG TAB PO PRN ×2 (03:19→08:08)
[2016-11-21] MEDS: metroNIDAZOLE 500 MG TAB PO SCH (05:55)
[2016-11-21 08:00] VITALS: BP 147/83; PULSE 68; RESP 20; TEMP 96.9; O2SAT 95
[2016-11-21] MEDS: MULTIVITAMIN TAB PO SCH (08:08)
[2016-11-21] MEDS: SODIUM CHLORIDE 0.9% FLUSH 10 ML FLUSH IV FLUSH SCH (08:08)
[2016-11-21] MEDS: THIAMINE HCL 100 MG TAB PO SCH (08:08)
[2016-11-21] MEDS: PANTOPRAZOLE SOD 40 MG DELAYED RELEASE TAB PO SCH (08:08)
--- NOTE | 2016-11-21 11:29 | HHI.DS ---
Discharge Summary Admission Date Nov 16, 2016 at 21:24 Discharge Date: Nov 21, 2016 Admitting Diagnosis HYPOKALEMIA/HYPOCALCEMIA, COLITIS (1) C. difficile colitis ICD Code: A04.7 (2) Alcohol abuse ICD Code: F10.10 Procedures none Brief History - From Admission about 10x diarrhea for more than a week both black, green, color was not on any antibiotics fever for 2- 3 weeks no nasuea/ no vomiting had burnign urination, pain and frequent urination dizziness frequent urination- have to stop to urinate every 20min or so in the [facility] CBC/BMP: 11/17/16 0533 11/20/16 1149 Significant Findings Laboratory Tests Test 11/19/16 11/20/16 07:18 11:49 Potassium Level 3.4 MEQ/L 3.3 MEQ/L (3.5-5.1) (3.5-5.1) Blood Urea Nitrogen 3 MG/DL (7-18) 5 MG/DL (7-18) Random Glucose 152 MG/DL (74-106) PE at Discharge GENERAL: This is a well-nourished, well-developed patient, in no apparent distress. CARDIOVASCULAR: Regular rate and regular rhythm without murmurs, gallops, or rubs. RESPIRATORY: Clear to auscultation. Breath sounds equal bilaterally. No wheezes , rales, or rhonchi. GASTROINTESTINAL: Abdomen soft, non-tender, nondistended. Normal, active bowel sounds MUSCULOSKELETAL: Extremities without clubbing, cyanosis, or edema. NEURO: Alert & Oriented x4 to person, place, time, situation. Moves all ext x4 Hospital Course Patient admitted on November 16, 2016 for colitis found to have C Diff colitis. He has a history of alcohol abuse and was placed on CIWA protocol in the hospital. Patient was treated with Flagyl. He progressively improved while in the hospital. Patient only had mild withdrawal during his hospitalization which was treated with Ativan. He reported back to his baseline and desire for discharge on 11/21/16. Discharge was agreed upon Pt Condition on Discharge: Stable Discharge Disposition: Discharge Home Discharge Time: <= 30 minutes Discharge Instructions DIET: Follow Instructions for: As Tolerated, No Restrictions Activities you can perform: Regular-No Restrictions Follow up Referrals: PCP Follow-up New Medications: Multiple Vitamin (Multi Vitamin Daily) 1 Tab Tab 1 TAB PO DAILY vitamin Days 30 Ref 0 TAB Metronidazole (Flagyl) 500 Mg Tab 500 MG PO Q8HR colitis Days 7 Ref 0 TAB Thiamine HCl (Gnp Vitamin B-1) 100 Mg Tab 100 MG PO DAILY vitamin Days 30 Ref 0 TAB Discontinued Medications: Chlordiazepoxide HCl (Chlordiazepoxide HCl) 25 Mg Capsule 25 MG PO TID PRN SHIVERING #12 Lorazepam (Ativan) 2 Mg Tab 2 MG PO Q4-6H PRN ANXIETY AND/OR AGITATION Ref 0 TAB Felix Hall MD R2 Nov 21, 2016 11:29
--- NOTE | 2016-11-21 11:34 | HHI.PR ---
Subjective Remarks Patient seen and examined this morning. Afebrile vital signs stable. Patient that his bowel movements are tolerable. He requests discharge home as he no longer wishes to stay in the hospital and feels he can manage at home at this time. Denies any tremors at this time. Objective Vitals Vital Signs Date Time Temp Pulse Resp B/P Pulse Ox O2 Delivery O2 Flow Rate FiO2 11/21/16 08:00 96.9 68 20 147/83 95 11/21/16 00:00 98.0 59 16 124/71 98 11/20/16 20:00 98.1 66 18 127/78 97 11/20/16 16:00 99.1 76 18 131/81 98 11/20/16 12:00 96.4 80 17 128/79 96 I/O 11/20/16 11/20/16 11/20/16 11/21/16 11/21/16 11/21/16 07:00 15:00 23:00 07:00 15:00 23:00 Intake Total 740 ml 601 ml 617 ml 240 ml 120 ml Balance 740 ml 601 ml 617 ml 240 ml 120 ml Intake Oral 240 ml 240 ml 360 ml 240 ml 120 ml IV Total 500 ml 361 ml 257 ml # Voids 3 5 2 2 # Bowel Movements 0 4 0 1 Result Diagram: 11/17/16 0533 11/20/16 1149 Imaging Last Impressions Abdomen/Pelvis CT 11/16/16 1808 Signed Impressions: Service Date/Time: October 20:20 - CONCLUSION: 1. Abnormal bowel gas pattern with apparent diffuse colonic wall thickening and indistinctness. There are multiple loops of borderline dilated small bowel with air-fluid levels. The findings are nonspecific but most consistent with colitis and possible ileus. 2. No definite free air or fluid. No oral contrast was given limiting the sensitivity. 3. High density layering dependently in the gallbladder which could represent gallbladder sludge. There is no definite calcifications. 4. Moderate hepatic steatosis. Wellington Alcaraz MD Chest X-Ray 11/16/16 0000 Signed Impressions: Service Date/Time: October 18:38 - CONCLUSION: No acute disease. Wellington Alcaraz MD Objective Remarks GENERAL: Sitting in bed in no apparent distress SKIN: Warm and dry. HEAD: Normocephalic. EYES: No scleral icterus. No injection or drainage. NECK: Supple, trachea midline. No JVD or lymphadenopathy. CARDIOVASCULAR: Regular rate and rhythm without murmurs, gallops, or rubs. RESPIRATORY: Breath sounds equal bilaterally. No accessory muscle use. GASTROINTESTINAL: Abdomen soft, non-tender, nondistended. MUSCULOSKELETAL: No cyanosis, or edema. No tremors noted BACK: Nontender without obvious deformity. No CVA tenderness. Procedures none Medications and IVs Current Medications Medications (Trade) Dose Ordered Sig/Pawel Route Start Time Stop Time Status Last Admin (Librium) 25 mg ONCE PRN PO 11/16/16 18:15 11/19/16 19:50 (NS Flush) 2 ml UNSCH PRN IV FLUSH 11/16/16 21:45 (NS Flush) 2 ml BID IV FLUSH 11/17/16 09:00 11/21/16 08:08 (Zofran Inj) 4 mg Q6H PRN IVP 11/16/16 21:45 11/18/16 15:26 (Narcan Inj) 0.4 mg UNSCH PRN IV 11/16/16 21:45 (Romazicon Inj) 0.2 mg Q1M PRN IV PUSH 11/16/16 21:45 (Ativan) 1 mg Q4H PRN PO 11/16/16 21:45 11/21/16 08:08 (Ativan Inj) 1 mg Q4H PRN IV PUSH 11/16/16 21:45 11/19/16 03:32 (Ativan) 2 mg Q2H PRN PO 11/16/16 21:45 11/17/16 14:19 (Ativan Inj) 2 mg Q2H PRN IV PUSH 11/16/16 21:45 11/18/16 20:38 (Ativan Inj) 2 mg Q1H PRN IV PUSH 11/16/16 21:45 (Ativan Inj) 2 mg Q15M PRN IV PUSH 11/16/16 21:45 (Vitamin B1) 100 mg DAILY PO 11/17/16 09:00 11/21/16 08:08 (Lovenox Inj) 40 mg Q24H SQ 11/17/16 09:00 Hold 11/20/16 08:14 (Protonix) 40 mg DAILY PO 11/17/16 09:00 11/21/16 08:08 (Flagyl) 500 mg Q8HR PO 11/18/16 06:00 11/21/16 05:55 (Theragran) 1 tab DAILY PO 11/20/16 09:15 11/21/16 08:08 A/P Problem List: (1) C. difficile colitis ICD Code: A04.7 Status: Acute Plan: Improving -Continue by mouth Flagyl (2) Alcohol abuse ICD Code: F10.10 Status: Chronic Plan: Discharged home with thiamine and folate Discharge Planning Discharge from today Felix Hall MD R2 Nov 21, 2016 11:34
== END 2016-11-21 12:12 | disposition home or self-care (01) | DRG 372 ==
LOC: NEPC 17:41 → NEDA 21:24 → N07B 22:48
PROVIDERS: ADMIT Hospitalist; ATTEND Hospitalist
DX: A04.7 Enterocolitis due to Clostridium difficile (principal); F10.239 Alcohol dependence with withdrawal, unspecified; D69.59 Other secondary thrombocytopenia; Y90.8 Blood alcohol level of 240 mg/100 ml or more; E83.51 Hypocalcemia; E87.6 Hypokalemia; E86.0 Dehydration; R35.0 Frequency of micturition; B19.20 Unspecified viral hepatitis C without hepatic coma; Z87.891 Personal history of nicotine dependence
CPT/HCPCS: 71010; 74177; 80048; 80053; 80307; 81001; 83690; 84484; 85007; 85025; 85027; 85610; 85730; 87329; 87493; 87506; 93005; 96374; J0610; J0744; J1650; J2060; J2405; J3475; J7030; J7040; Q9967

== ENCOUNTER 2016-11-30 16:09 | Emergency (ER) | payer SELFPAY ==
[~2016-11-30 16:09] MED LIST changes: -CHLO25CA9 PO; +GNP100TA3 PO; -LORA-475 PO; +METR-1 PO; +MULT1TAB46 PO
[2016-11-30 16:35] VITALS: BP 139/86; PULSE 88; RESP 20; TEMP 98.6; O2SAT 96
--- NOTE | 2016-11-30 17:20 | PD ---
HPI Chief Complaint: Medical Clearance Time Seen by Provider: 17:12 Travel History International Travel<30 days: No Contact w/Intl Traveler<30days: No Traveled to known affect area: No History of Present Illness HPI 61-year-old male with history of alcohol abuse, here for evaluation because he states he wants to get clean from alcohol. He tells me that he has been having shakes and diarrhea. He drinks vodka daily and he states his last drink was this morning. He denies illicit drug use. Triage nurse reported that the patient complained of chest pain, however the patient tells me that he has been having palpitations for the last 2 weeks, no pain. He denies suicidal or homicidal ideation. I walked into the exam room, the patient was sleeping comfortably. He has been here before requesting detox and was instructed to follow-up with [facility]. He tells me that he was there about a month ago, however he continues to drink alcohol. PFSH Past Medical History Atrial Fibrillation: Yes Anxiety: Yes Depression: Yes Cancer: No Cardiovascular Problems: No Cerebrovascular Accident: No Diabetes: No Dialysis: No Diminished Hearing: No Endocrine: No Gastrointestinal Disorders: No GERD: No Genitourinary: No Hepatitis: Yes Hiatal Hernia: No Heparin Induced Thrombocytopen: No Hypertension: No Immune Disorder: No Implanted Vascular Access Dvce: No Kidney Stones: No Musculoskeletal: No Neurologic: No Psychiatric: No Reproductive: No Respiratory: No Immunizations Current: Yes Migraines: No Renal Failure: No Seizures: No (not sure) Sickle Cell Disease: No Ulcer: No ?: Not Past Surgical History Abdominal Surgery: No AICD: No Arteriovenous Shunt: No Cardiac Surgery: No Ear Surgery: No Endocrine Surgery: No Eye Surgery: No Genitourinary Surgery: No Gynecologic Surgery: No Insulin Pump: No Joint Replacement: No Neurologic Surgery: No Oral Surgery: Yes Pacemaker: No Thoracic Surgery: No Other Surgery: Yes (UNKNOWN BACK SURGERY) Social History Alcohol Use: Yes (pt states "I drink enough to stop the shakes", abuses frequently) Tobacco Use: No (QUIT AFTER 45 YEARS) Substance Use: No Allergies-Medications (Allergen,Severity, Reaction): Coded Allergies: Prozac (Unverified Allergy, Mild, Rash, 11/30/16) Penicillin (Verified Allergy, Unknown, 11/30/16) Reported Meds & Prescriptions Reported Meds & Active Scripts Active Multi Vitamin Daily (Multiple Vitamin) 1 Tab Tab 1 Tab PO DAILY 30 Days Gnp Vitamin B-1 (Thiamine HCl) 100 Mg Tab 100 Mg PO DAILY 30 Days Flagyl (Metronidazole) 500 Mg Tab 500 Mg PO Q8HR 7 Days Review of Systems Except as stated in HPI: all other systems reviewed are Neg Physical Exam Narrative GENERAL: Well-developed, well-nourished, sleeping comfortably, easily arousable , no apparent distress. SKIN: Focused skin assessment warm/dry. HEAD: Atraumatic. Normocephalic. EYES: Pupils equal and round. No scleral icterus. No injection or drainage. ENT: Mucous membranes pink and moist. NECK: Trachea midline. No JVD. CARDIOVASCULAR: Regular rate and rhythm. No murmur appreciated. RESPIRATORY: No accessory muscle use. Clear to auscultation. Breath sounds equal bilaterally. GASTROINTESTINAL: Abdomen soft, non-tender, nondistended. MUSCULOSKELETAL: No obvious deformities. No clubbing. No cyanosis. No edema. NEUROLOGICAL: Awake and alert. No obvious cranial nerve deficits. Motor grossly within normal limits. Normal speech. PSYCHIATRIC: Appropriate mood and affect; insight and judgment normal. Data Data Last Documented VS Vital Signs Date Time Temp Pulse Resp B/P Pulse Ox O2 Delivery O2 Flow Rate FiO2 11/30/16 17:57 71 16 114/64 97 Room Air 11/30/16 16:35 98.6 Orders Complete Blood Count With Diff (11/30/16 17:16) Comprehensive Metabolic Panel (11/30/16 17:16) Lipase (11/30/16 17:16) Prothrombin Time / Inr (Pt) (11/30/16 17:16) Act Partial Throm Time (Ptt) (11/30/16 17:16) Iv Access Insert/Monitor (11/30/16 17:16) Ecg Monitoring (11/30/16 17:16) Oximetry (11/30/16 17:16) Sodium Chloride 0.9% Flush (Ns Flush) (11/30/16 17:30) Electrocardiogram (11/30/16 17:16) Ckmb (Isoenzyme) Profile (11/30/16 17:16) Troponin I (11/30/16 17:16) Sodium Chlor 0.9% 1000 Ml Inj (Ns 1000 M (11/30/16 17:30) Alcohol (Ethanol) (11/30/16 17:10) Labs Laboratory Tests Test 11/30/16 17:10 White Blood Count 11.8 TH/MM3 Red Blood Count 4.29 MIL/MM3 Hemoglobin 13.7 GM/DL Hematocrit 42.1 % Mean Corpuscular Volume 98.2 FL Mean Corpuscular Hemoglobin 32.1 PG Mean Corpuscular Hemoglobin 32.7 % Concent Red Cell Distribution Width 13.9 % Platelet Count 266 TH/MM3 Mean Platelet Volume 6.4 FL Neutrophils (%) (Auto) 80.9 % Lymphocytes (%) (Auto) 12.1 % Monocytes (%) (Auto) 5.9 % Eosinophils (%) (Auto) 0.1 % Basophils (%) (Auto) 1.0 % Neutrophils # (Auto) 9.5 TH/MM3 Lymphocytes # (Auto) 1.4 TH/MM3 Monocytes # (Auto) 0.7 TH/MM3 Eosinophils # (Auto) 0.0 TH/MM3 Basophils # (Auto) 0.1 TH/MM3 CBC Comment DIFF FINAL Differential Comment Sodium Level 144 MEQ/L Potassium Level 3.1 MEQ/L Chloride Level 103 MEQ/L Carbon Dioxide Level 25.7 MEQ/L Anion Gap 15 MEQ/L Blood Urea Nitrogen 6 MG/DL Creatinine 0.89 MG/DL Estimat Glomerular Filtration 87 ML/MIN Rate Random Glucose 93 MG/DL Calcium Level 8.4 MG/DL Total Bilirubin 0.7 MG/DL Aspartate Amino Transf 35 U/L (AST/SGOT) Alanine Aminotransferase 39 U/L (ALT/SGPT) Alkaline Phosphatase 87 U/L Total Creatine Kinase 47 U/L Troponin I LESS THAN 0.02 NG/ML Total Protein 7.7 GM/DL Albumin 3.6 GM/DL Lipase 323 U/L Ethyl Alcohol Level 465 MG/DL [facility] Medical Decision Making Medical Screen Exam Complete: Yes Emergency Medical Condition: Yes Medical Record Reviewed: Yes Interpretation(s) EKG: Sinus, rate 75, normal axis, normal intervals, no acute ischemic abnormality. Differential Diagnosis Alcohol intoxication, alcohol withdrawal unlikely, metabolic abnormality, malingering Narrative Course Vital signs reviewed and are within normal limits. CBC shows WBC 11.8, hemoglobin 13.7, hematocrit 42.1, platelets 266. CMP is remarkable for potassium 3.1 which was replaced orally, otherwise unremarkable. Cardiac enzymes are negative. Lipase is 323. Alcohol level is 465. Patient denies suicidal or homicidal ideation. He'll be allowed to sleep off his intoxication in the emergency department. Diagnosis Primary Impression: Alcohol abuse with intoxication Additional Impression: Hypokalemia Referrals: [facility] day Additional Instructions: Go to [facility] tomorrow to get help for alcoholism. Disposition: 01 DISCHARGE HOME Condition: Stable Deni Kim MD Nov 30, 2016 17:19
[2016-11-30] MEDS ORDERED: SODIUM CHLOR 0.9% 1000 ML INJ 1,000 ML IV ONE (17:30)
[2016-11-30] MEDS ORDERED: SODIUM CHLORIDE 0.9% FLUSH 10 ML FLUSH IV FLUSH PRN (17:30)
[2016-11-30 17:54] LABS: AUTOMATED NEUTROPHIL # 9.5 TH/MM3 (1.8-7.7); BASOPHIL # 0.1 TH/MM3 (0-0.2); EOSINOPHIL % 0.1 % (0.0-4.0); HEMATOCRIT 42.1 % (39.0-51.0); HEMO FLAGS DIFF FINAL; LYMPH % 12.1 % (9.0-44.0); LYMPHOCYTE # 1.4 TH/MM3 (1.0-4.8); MEAN CELL VOLUME 98.2 FL (80.0-100.0); MEAN CORPUSCULAR HEMOGLOBIN 32.1 PG (27.0-34.0); MEAN CORPUSCULAR HGB CONC 32.7 % (32.0-36.0); MONO % 5.9 % (0.0-8.0); NEUT % 80.9 % (16.0-70.0); PLATELET COUNT 266 TH/MM3 (150-450); RED BLOOD COUNT 4.29 MIL/MM3 (4.50-5.90); RED CELL DISTRIBUTION WIDTH 13.9 % (11.6-17.2); WHITE BLOOD COUNT 11.8 TH/MM3 (4.0-11.0)
[2016-11-30 17:57] VITALS: BP 114/64; PULSE 71; RESP 16; O2SAT 96; O2SAT 97
[2016-11-30 18:08] LABS: ALT (GPT) 39 U/L (12-78); ANION GAP 15 MEQ/L (5-15); AST (GOT) 35 U/L (15-37); BICARBONATE 25.7 MEQ/L (21.0-32.0); BLOOD UREA NITROGEN 6 MG/DL (7-18); CHLORIDE 103 MEQ/L (98-107); GLOMERULAR FILTRATION RATE 87 ML/MIN (>89); POTASSIUM 3.1 MEQ/L (3.5-5.1); SODIUM (NA) 144 MEQ/L (136-145)
[2016-11-30 18:13] LABS: ALKALINE PHOSPHATASE 87 U/L (45-117); TOTAL BILIRUBIN ADULT 0.7 MG/DL (0.2-1.0)
[2016-11-30 18:19] LABS: CREATINE KINASE 47 U/L (39-308)
[2016-11-30 18:34] LABS: APTT (PATIENT) 27.3 SEC (24.3-30.1); PROTHROMBIN TIME - PATIENT 10.5 SEC (9.8-11.6)
[2016-11-30] MEDS ORDERED: POTASSIUM CHLORIDE 20 MEQ CONTROLLED RELEASE TAB PO ONE (18:45)
[2016-11-30 19:12] VITALS: BP 120/70; PULSE 72; RESP 18; TEMP 98.1; O2SAT 98
[2016-11-30 23:55] VITALS: BP 130/80; PULSE 65; RESP 18; O2SAT 100
[2016-12-01 06:09] VITALS: BP 121/57; PULSE 68; RESP 18; O2SAT 98
--- NOTE | 2016-12-02 11:04 | EKG ---
Date Performed: 11/30/2016 Time Performed: 17:28:42 PTAGE: 61 years EKG: Sinus rhythm NORMAL ECG PREVIOUS TRACING : 11/16/2016 18.56 DOCTOR: Darinel Hammond Interpretating Date/Time 12/02/2016 10:57:13
== END 2016-12-01 06:10 | disposition home or self-care (01) ==
LOC: NEPD 16:09
DX: F10.129 Alcohol abuse with intoxication, unspecified (principal); E87.6 Hypokalemia; R19.7 Diarrhea, unspecified; I48.91 Unspecified atrial fibrillation; F41.9 Anxiety disorder, unspecified; F32.9 Major depressive disorder, single episode, unspecified; Z79.899 Other long term (current) drug therapy; Z88.0 Allergy status to penicillin; Z88.8 Allergy status to other drugs, medicaments and biological substances
CPT/HCPCS: 80053; 80307; 82550; 83690; 84484; 85025; 85610; 85730; 93005; 96360; 99284; J7030

== ENCOUNTER 2016-12-02 09:38 | Inpatient (IN) | payer SELFPAY ==
[~2016-12-02] VITALS: Ht 182.9 cm; Wt 66.8 kg
[2016-12-02 09:57] VITALS: BP 131/81; RESP 20; TEMP 98.4; O2SAT 97
[2016-12-02] MEDS ORDERED: THIAMINE HCL 100 MG TAB PO ONE (10:15)
[2016-12-02] MEDS ORDERED: SODIUM CHLORIDE 0.9% FLUSH 10 ML FLUSH IVF PRN (10:15)
[2016-12-02] MEDS ORDERED: SODIUM CHLOR 0.9% 1000 ML INJ 1,000 ML IV ONE (10:15)
[2016-12-02] MEDS ORDERED: FOLIC ACID 1 MG TAB PO ONE (10:15)
[2016-12-02 10:21] VITALS: O2SAT 97
--- NOTE | 2016-12-02 10:39 | PD ---
HPI Chief Complaint: Alcohol/Drug Intoxication Time Seen by Provider: 10:15 Travel History International Travel<30 days: No Contact w/Intl Traveler<30days: No Traveled to known affect area: No History of Present Illness HPI Patient is a 61-year-old male presenting to the emergency department for evaluation of abdominal cramping, diarrhea, anxiety, suicidal ideations. Patient states that his is cheating on him and is leaving him. He is feeling suicidal secondary to that. He has a history of alcoholism, he reports not drinking any alcohol today. He states he's tried to calm down but hasn't been able to. The anxiety appears to be getting worse. Patient states that he has constant diarrhea, he is gone 5 times this morning. He has abdominal cramping and reports his pain is a 5 out of 10. Denies any fevers, chills, vomiting but states he feels nauseous and feels tremulous. PFSH Past Medical History Atrial Fibrillation: Yes Anxiety: Yes Depression: Yes Cancer: No Cardiovascular Problems: No Cerebrovascular Accident: No Diabetes: No Dialysis: No Diminished Hearing: No Endocrine: No Gastrointestinal Disorders: Yes (CDT colitis) GERD: No Genitourinary: No Hepatitis: Yes Hiatal Hernia: No Heparin Induced Thrombocytopen: No Hypertension: No Immune Disorder: No Implanted Vascular Access Dvce: No Kidney Stones: No Musculoskeletal: No Neurologic: No Psychiatric: No Reproductive: No Respiratory: No Immunizations Current: Yes Migraines: No Renal Failure: No Sickle Cell Disease: No Ulcer: No Tetanus Vaccination: < 5 Years Past Surgical History Abdominal Surgery: No AICD: No Arteriovenous Shunt: No Cardiac Surgery: No Ear Surgery: No Endocrine Surgery: No Eye Surgery: No Genitourinary Surgery: No Gynecologic Surgery: No Insulin Pump: No Joint Replacement: No Neurologic Surgery: No Oral Surgery: Yes Pacemaker: No Thoracic Surgery: No Other Surgery: Yes (UNKNOWN BACK SURGERY) Social History Alcohol Use: Yes (pt states "I drink enough to stop the shakes", abuses frequently) Tobacco Use: No Substance Use: No Allergies-Medications (Allergen,Severity, Reaction): Coded Allergies: Prozac (Unverified Allergy, Mild, Rash, 12/02/16) Penicillin (Verified Allergy, Unknown, 12/02/16) Reported Meds & Prescriptions Reported Meds & Active Scripts Active No Active Prescriptions or Reported Medications Review of Systems Except as stated in HPI: all other systems reviewed are Neg General / Constitutional: No: Fever, Chills HENT: No: Headaches Cardiovascular: No: Chest Pain or Discomfort Respiratory: No: Shortness of Breath Gastrointestinal: Positive: Nausea, Diarrhea, Abdominal Pain Genitourinary: No: Dysuria Neurologic: Positive: Other (tremors) Psychiatric: Positive: Anxiety, Suicidal Ideations, Substance Abuse Physical Exam Narrative GENERAL: Thin, well-developed, alert male. Resting comfortably in no acute distress. SKIN: Warm and dry. HEAD: Atraumatic. Normocephalic. EYES: Pupils equal and round. No scleral icterus. No injection or drainage. ENT: No nasal bleeding or discharge. Mucous membranes pink and moist. NECK: Trachea midline. No JVD. CARDIOVASCULAR: Regular rate and rhythm. RESPIRATORY: No accessory muscle use. Clear to auscultation. Breath sounds equal bilaterally. GASTROINTESTINAL: Abdomen soft, mildly tender in bilateral lower quadrants, nondistended. Hepatic and splenic margins not palpable. Hyperactive bowel sounds MUSCULOSKELETAL: Extremities without clubbing, cyanosis, or edema. No obvious deformities. NEUROLOGICAL: Awake and alert. No obvious cranial nerve deficits. Motor grossly within normal limits. Five out of 5 muscle strength in the arms and legs. Normal speech. PSYCHIATRIC: Depressed, anxious mood and affect; insight and judgment normal. Data Data Last Documented VS Vital Signs Date Time Temp Pulse Resp B/P Pulse Ox O2 Delivery O2 Flow Rate FiO2 12/02/16 10:21 97 12/02/16 09:57 98.4 20 131/81 Orders Comprehensive Metabolic Panel (12/02/16 10:07) Oximetry (12/02/16 10:07) Iv Access Insert/Monitor (12/02/16 10:07) Ecg Monitoring (12/02/16 10:07) Psych Screen (12/02/16 10:07) Sodium Chloride 0.9% Flush (Ns Flush) (12/02/16 10:15) Alcohol (Ethanol) (12/02/16 10:07) Sodium Chlor 0.9% 1000 Ml Inj (Ns 1000 M (12/02/16 10:15) Thiamine (Vit B1) (Vitamin B1) (12/02/16 10:15) Folic Acid (Folate) (12/02/16 10:15) C Diff Toxin Pcr (12/02/16 10:28) Ct Abd/Pel W Iv Contrast(Rout) (12/02/16 ) Complete Blood Count With Diff (12/02/16 10:34) Potassium Chloride (Kcl) (12/02/16 11:30) Iohexol 350 Inj (Omnipaque 350 Inj) (12/02/16 12:13) Admit Order (Ed Use Only) (12/02/16 12:56) Labs Laboratory Tests Test 12/02/16 12/02/16 10:15 10:38 Sodium Level 143 MEQ/L Potassium Level 3.1 MEQ/L Chloride Level 110 MEQ/L Carbon Dioxide Level 24.6 MEQ/L Anion Gap 8 MEQ/L Blood Urea Nitrogen 4 MG/DL Creatinine 0.84 MG/DL Estimat Glomerular Filtration 94 ML/MIN Rate Random Glucose 115 MG/DL Calcium Level 8.4 MG/DL Total Bilirubin 0.6 MG/DL Aspartate Amino Transf 41 U/L (AST/SGOT) Alanine Aminotransferase 35 U/L (ALT/SGPT) Alkaline Phosphatase 89 U/L Total Protein 7.1 GM/DL Albumin 3.4 GM/DL Ethyl Alcohol Level 429 MG/DL White Blood Count 9.6 TH/MM3 Red Blood Count 3.82 MIL/MM3 Hemoglobin 13.1 GM/DL Hematocrit 36.9 % Mean Corpuscular Volume 96.6 FL Mean Corpuscular Hemoglobin 34.4 PG Mean Corpuscular Hemoglobin 35.6 % Concent Red Cell Distribution Width 13.8 % Platelet Count 189 TH/MM3 Mean Platelet Volume 6.3 FL Neutrophils (%) (Auto) 76.8 % Lymphocytes (%) (Auto) 14.5 % Monocytes (%) (Auto) 7.2 % Eosinophils (%) (Auto) 0.7 % Basophils (%) (Auto) 0.8 % Neutrophils # (Auto) 7.3 TH/MM3 Lymphocytes # (Auto) 1.4 TH/MM3 Monocytes # (Auto) 0.7 TH/MM3 Eosinophils # (Auto) 0.1 TH/MM3 Basophils # (Auto) 0.1 TH/MM3 CBC Comment DIFF FINAL Differential Comment MDM Medical Decision Making Medical Screen Exam Complete: Yes Emergency Medical Condition: Yes Medical Record Reviewed: Yes Interpretation(s) Vital Signs Date Time Temp Pulse Resp B/P Pulse Ox O2 Delivery O2 Flow Rate FiO2 12/02/16 10:21 97 12/02/16 09:57 98.4 20 131/81 97 Differential Diagnosis Colitis versus anxiety versus mood disorder versus substance abuse versus CDT versus metabolic abnormality versus other Narrative Course Patient is a 61-year-old male presenting to the emergency department due to alcohol intoxication, seeking rehabilitation and stating that he is suicidal. He also reported frequent diarrhea, abdominal pain and cramping. Upon review of medical records abrasion was diagnosed with C. difficile colitis on November 17, he was inpatient treated with metronidazole and discharged with a prescription. Patient reports compliance with that regimen. However his symptoms persist. Labs and imaging ordered and pending. IV access established, patient placed on telemetry monitoring and continuous pulse oximetry. Alcohol level is 429 CBC shows no acute abnormality Chemistry with a potassium of 3.[address] potassium [address] CT scan of the abdomen and pelvis shows diffuse edema and wall thickening involving both small and large intestine consistent with enteritis and colitis. There is no evidence of cyst formation or free fluid. Stool specimen sent, patient continues to be positive for C. difficile toxin. Residents accepted admission on behalf of Dr. Lopez, orders placed. Diagnosis Primary Impression: C. difficile colitis Additional Impressions: Alcohol dependence with acute alcoholic intoxication Qualified Code: F10.220 - Alcohol dependence with acute alcoholic intoxication , uncomplicated Hypokalemia Suicidal ideation Scripts No Active Prescriptions or Reported Meds Condition: Erica Jessica HOSE OPERATOR Dec 02, 2016 10:39
[2016-12-02 10:48] LABS: AUTOMATED NEUTROPHIL # 7.3 TH/MM3 (1.8-7.7); BASOPHIL # 0.1 TH/MM3 (0-0.2); BASOPHIL % 0.8 % (0.0-2.0); EOSINOPHIL # 0.1 TH/MM3 (0-0.4); EOSINOPHIL % 0.7 % (0.0-4.0); HEMATOCRIT 36.9 % (39.0-51.0); HEMO FLAGS DIFF FINAL; LYMPH % 14.5 % (9.0-44.0); LYMPHOCYTE # 1.4 TH/MM3 (1.0-4.8); MEAN CELL VOLUME 96.6 FL (80.0-100.0); MEAN CORPUSCULAR HEMOGLOBIN 34.4 PG (27.0-34.0); MEAN CORPUSCULAR HGB CONC 35.6 % (32.0-36.0); MONO % 7.2 % (0.0-8.0); NEUT % 76.8 % (16.0-70.0); PLATELET COUNT 189 TH/MM3 (150-450); RED BLOOD COUNT 3.82 MIL/MM3 (4.50-5.90); RED CELL DISTRIBUTION WIDTH 13.8 % (11.6-17.2); WHITE BLOOD COUNT 9.6 TH/MM3 (4.0-11.0)
[2016-12-02 10:52] LABS: ANION GAP 8 MEQ/L (5-15); AST (GOT) 41 U/L (15-37); BICARBONATE 24.6 MEQ/L (21.0-32.0); BLOOD UREA NITROGEN 4 MG/DL (7-18); CHLORIDE 110 MEQ/L (98-107); GLOMERULAR FILTRATION RATE 94 ML/MIN (>89); POTASSIUM 3.1 MEQ/L (3.5-5.1); SODIUM (NA) 143 MEQ/L (136-145)
[2016-12-02 10:53] LABS: ALT (GPT) 35 U/L (12-78)
[2016-12-02 10:57] LABS: ALKALINE PHOSPHATASE 89 U/L (45-117); TOTAL BILIRUBIN ADULT 0.6 MG/DL (0.2-1.0)
[2016-12-02] MEDS ORDERED: POTASSIUM CHLORIDE 10 MEQ CONTROLLED RELEASE TAB PO ONE (11:30)
[2016-12-02] MEDS ORDERED: IOHEXOL 350 MG/ML 10 ML VIAL (for RAD DIAG) IV ONE (12:13)
--- NOTE | 2016-12-02 12:19 | RADRPT ---
EXAM DATE/TIME: 12/02/2016 11:42 [facility] COMPARISON: CT ABDOMEN & PELVIS W CONTRAST, November 16, 2016, 20:20. INDICATIONS : Lower abdominal pain, diarrhea. IV CONTRAST: 90 cc Omnipaque 350 (iohexol) IV ORAL CONTRAST: No oral contrast ingested. RADIATION DOSE: 4.88 CTDIvol (mGy) MEDICAL HISTORY : Hepatitis C. Cardiovascular disease Seizures. SURGICAL HISTORY : None. ENCOUNTER: Initial ACUITY: 2 weeks PAIN SCALE: 4/10 LOCATION: Bilateral lower quadrant TECHNIQUE: Volumetric scanning of the abdomen and pelvis was performed. Using automated exposure control and ad justment of the mA and/or kV according to patient size, radiation dose was kept as low as reasonably achievable to obtain optimal diagnostic quality images. DICOM format image data is available electro nically for review and comparison. FINDINGS: LOWER LUNGS: The visualized lower lungs are clear. LIVER: Homogeneous density without lesion. There is no dilation of the biliary tree. No calcified gallston es. SPLEEN: Normal size without lesion. PANCREAS: Within normal limits. KIDNEYS: Normal in size and shape. There is no mass, stone or hydronephrosis. ADRENAL GLANDS: Within normal limits. VASCULAR: There is no aortic aneurysm. BOWEL/MESENTERY: Wall thickening and edema are identified involving both small and large intestine. There are no extra intestinal fluid collections. Mesenteric vessels appear widely patent. ABDOMINAL WALL: Within normal limits. RETROPERITONEUM: There is no lymphadenopathy. BLADDER: No wall thickening or mass. REPRODUCTIVE: Within normal limits. INGUINAL: There is no lymphadenopathy or hernia. MUSCULOSKELETAL: Within normal limits for patient age. CONCLUSION: Diffuse edema and wall thickening involving both small and large intestine consistent with enteritis and colitis. No evidence of abscess formation or free fluid. No other significant abnormality John Sagastume MD on December 02, 2016 at 12:14 Board Certified Radiologist. This report was verified electronically.
[2016-12-02 12:45] LABS: C. DIFF EPI 027 PRESUMPTIVE NEGATIVE (NEGATIVE)
[2016-12-02 12:59] LABS: C. DIFF TOXIN PCR POSITIVE (NEGATIVE)
[2016-12-02] MEDS ORDERED: NALOXONE HCL 0.4 MG/ML AMP IV PRN (13:15)
[2016-12-02] MEDS ORDERED: BISACODYL 10 MG SUPP RECTAL PRN (13:15)
[2016-12-02] MEDS ORDERED: LORazepam 2 MG TAB PO PRN (13:15)
[2016-12-02] MEDS ORDERED: SENNOSIDES 8.6 MG TAB PO PRN (13:15)
[2016-12-02] MEDS ORDERED: MAGNESIUM HYDROXIDE SUSP 30 ML CUP PO PRN (13:15)
[2016-12-02] MEDS ORDERED: LORazepam 2 MG/ML VIAL IV PUSH PRN ×3 (13:15)
[2016-12-02] MEDS ORDERED: FLUMAZENIL 0.5 MG/5 ML VIAL IV PUSH PRN (13:15)
[2016-12-02] MEDS ORDERED: SODIUM CHLORIDE 0.9% FLUSH 10 ML FLUSH IV FLUSH PRN (13:15)
[2016-12-02] MEDS ORDERED: LACTULOSE SYRUP 20 GM/30 ML CUP PO PRN (13:15)
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
[2016-12-02] MEDS: LORazepam 2 MG/ML VIAL IV PUSH PRN (13:45)
[2016-12-02 14:37] VITALS: BP 139/78
[2016-12-02 16:31] VITALS: BP 139/84; PULSE 66; RESP 17; TEMP 97.6; O2SAT 98
[2016-12-02] MEDS: SODIUM CHLOR 0.9% 1000 ML INJ 1,000 ML IV SCH (17:22)
[2016-12-02] MEDS: metroNIDAZOLE 500 MG TAB PO SCH (17:22)
[2016-12-02] MEDS: THIAMINE HCL 100 MG TAB PO SCH (18:00)
[2016-12-02] MEDS: ENOXAPARIN SODIUM 40 MG/0.4 ML SYRINGE SQ SCH (18:33)
[2016-12-02] MEDS: LORazepam 1 MG TAB PO PRN (18:34)
[2016-12-02] MEDS: PANTOPRAZOLE SOD 40 MG DELAYED RELEASE TAB PO SCH (18:34)
[2016-12-02] MEDS: ONDANSETRON HCL 4 MG/2 ML VIAL IV PRN (18:34)
[2016-12-02] MEDS: MULTIVITAMINS/MINERALS THERAPEUTIC TAB PO SCH (18:34)
[2016-12-02] MEDS: FOLIC ACID 1 MG TAB PO SCH (18:34)
[2016-12-02 20:29] VITALS: BP 108/66; PULSE 69; RESP 18; TEMP 97.4; O2SAT 97
[2016-12-02] MEDS: DOCUSATE SODIUM 50 MG/SENNA 8.6 MG TAB PO SCH (21:00)
[2016-12-02] MEDS: SODIUM CHLORIDE 0.9% FLUSH 10 ML FLUSH IV FLUSH SCH (21:00)
[2016-12-03] VITALS (8 sets, daily range): BP systolic 126–148; BP diastolic 71–81; PULSE 65–80; RESP 18–19; TEMP 97.4–98.3; O2SAT 95–99
[2016-12-03] MEDS: LORazepam 2 MG/ML VIAL IV PUSH PRN ×4 (00:48→12:54)
[2016-12-03] MEDS ORDERED: ENALAPRILAT 1.25 MG/ML VIAL IV PRN (02:00)
[2016-12-03] MEDS: SODIUM CHLOR 0.9% 1000 ML INJ 1,000 ML IV SCH ×2 (03:00→12:54)
[2016-12-03 05:50] LABS: HEMATOCRIT 36.1 % (39.0-51.0); MEAN CELL VOLUME 97.1 FL (80.0-100.0); MEAN CORPUSCULAR HEMOGLOBIN 33.5 PG (27.0-34.0); MEAN CORPUSCULAR HGB CONC 34.5 % (32.0-36.0); PLATELET COUNT 137 TH/MM3 (150-450); RED BLOOD COUNT 3.72 MIL/MM3 (4.50-5.90); RED CELL DISTRIBUTION WIDTH 14.2 % (11.6-17.2); REVIEW FLAG FINAL; WHITE BLOOD COUNT 5.4 TH/MM3 (4.0-11.0)
[2016-12-03 06:08] LABS: ANION GAP 10 MEQ/L (5-15); AST (GOT) 37 U/L (15-37); BICARBONATE 26.5 MEQ/L (21.0-32.0); BLOOD UREA NITROGEN 4 MG/DL (7-18); CHLORIDE 101 MEQ/L (98-107); GLOMERULAR FILTRATION RATE 110 ML/MIN (>89); POTASSIUM 3.5 MEQ/L (3.5-5.1); SODIUM (NA) 137 MEQ/L (136-145)
[2016-12-03 06:11] LABS: ALKALINE PHOSPHATASE 94 U/L (45-117); ALT (GPT) 33 U/L (12-78); TOTAL BILIRUBIN ADULT 0.8 MG/DL (0.2-1.0)
[2016-12-03] MEDS: THIAMINE HCL 100 MG TAB PO SCH (08:25)
[2016-12-03] MEDS: MULTIVITAMINS/MINERALS THERAPEUTIC TAB PO SCH (08:25)
[2016-12-03] MEDS: DOCUSATE SODIUM 50 MG/SENNA 8.6 MG TAB PO SCH ×2 (08:25→20:35)
[2016-12-03] MEDS: PANTOPRAZOLE SOD 40 MG DELAYED RELEASE TAB PO SCH (08:25)
[2016-12-03] MEDS: SODIUM CHLORIDE 0.9% FLUSH 10 ML FLUSH IV FLUSH SCH ×2 (08:26→20:36)
[2016-12-03] MEDS: metroNIDAZOLE 500 MG TAB PO SCH ×3 (08:26→16:21)
[2016-12-03] MEDS: FOLIC ACID 1 MG TAB PO SCH (08:26)
[2016-12-03] MEDS ORDERED: PNEUMOCOCCAL POLYVALENT INJ 25 MCG/0.5 ML SYR IM ONE (10:00)
[2016-12-03] MEDS: VANCOMYCIN 500 MG VIAL (FOR ORAL USE ONLY) PO SCH ×3 (12:54→20:36)
--- NOTE | 2016-12-03 12:58 | HHI.FPPN ---
Problem Problem List: (1) C. difficile colitis (2) EtOH dependence (3) Alcohol abuse with intoxication (4) Hepatitis C virus (5) Suicidal ideation (6) Depression (7) Fluid, Electrolytes, Nutrition and Prophylaxis Subjective Subjective 61 year old with h/o c-dif in the recent past that required hospitalization -- did not take or fill antibiotics at home upon discharge. He is chronic alcoholic with depression and anxiety with recent suicidal ideation (not current ) and very difficult social and living situation. He was has persistent diarrhea and was found to have C-dif still and was admitted for further treatment and for acute alcohol intoxication. Patient reports prior DT in two days after self stopping ETOH in the past -- last brink yesterday until intoxication. Endorses some visual hallucinations last night, none currently but has significant tremor even following librium and ativan administration. Patient continues to report diarrhea and feels somewhat worse with weakness and GI issues since admission. He did eat today without nausea or vomiting. He denies chest pain or sob or urinary issues or focal neuro isses. He reports depression/anxiety but denies active suicidal or homicidal ideation but does report recent history of this. [facility] Objective Objective Laboratory Tests - Abnormals Test 12/03/16 05:27 Red Blood Count 3.72 MIL/MM3 Hemoglobin 12.5 GM/DL Hematocrit 36.1 % Platelet Count 137 TH/MM3 Mean Platelet Volume 6.4 FL Blood Urea Nitrogen 4 MG/DL Calcium Level 8.2 MG/DL Albumin 3.1 GM/DL Vital Signs 12/02/16 12/02/16 12/02/16 12/03/16 14:37 16:31 20:29 00:31 Temp 97.6 97.4 98.3 Pulse 99 66 69 80 Resp 20 17 18 18 B/P 139/78 139/84 108/66 126/74 Pulse Ox 96 98 97 95 12/03/16 12/03/16 12/03/16 04:00 08:00 09:05 Temp 97.5 98.3 Pulse 66 67 Resp 19 18 B/P 127/73 148/75 148/75 Pulse Ox 96 98 INTAKE & OUTPUT 12/03/16 07:00 Intake Total 830 ml Balance 830 ml Physical exam O. CONSTITUTIONAL/GEN: malnourished, thin appearing, unkempt, in no pain or respiratory distress. EYES: conjunctiva normal, PERRLA, EOMI. ENT: Mouth and pharynx normal. NECK: thyroid midline, carotids symmetrical. LUNGS: clear A-P, respiratory effort is normal. CARDIOVASCULAR: RR without murmur or gallop. No significant edema. GI/ABD: soft without masses, without organomegaly, no rebound or guarding, good bowel sounds throughout : no CVA tenderness NEURO: No focal deficits. He is able to ambulate to the bathroom without assistance, he has significant tremor in the upper extremities, SKIN: color normal, no rashes noted. HEME/LYMPH: no bruising, petechia or significant adenopathy MUSC: back is normal in appearance. Extremities are normal in appearance. PSYCH/MENTAL STATUS: Alert and oriented x 3, speech is fluent and coherent, he does not have active hallucinations, he appears to understand his medical issues Assessment Assessment: (1) C. difficile colitis Plan: At admission he was started on flagyl which was what he was previously discharged on. Due to his underlying poor health secondary to the ETOH abuse, and possible resistance that may have developed due to inadequate treatment of the c.dif. coupled with his report of feeling worse since admission will add on vancomycin. Will continue some IVF and antibiotics at this time. (2) Alcohol dependence with acute alcoholic intoxication Plan: He is on the CIWA protocol. and a schedule of librium. He is at high risk for complications from ETOH withdrawal. Close monitoring. (3) Suicidal ideation Plan: WHile this is not active today he has described this in detail in the recent past -- psych consult pending (4) Depression (5) Hepatitis C virus Plan: He has not been treated in the past and has little resources to treat this now. His Liver function is ok at this time. Once other issues are stabilized he might be a candidate for outpatient treatment. (6) Fluid, Electrolytes, Nutrition and Prophylaxis Plan: Cont prophylaxis as ordered and IVF Assessment 61 year old male in poor health secondary to ETOH abuse with active C.dif. Due to his underlying status of malnourishment and lack of follow up he is at high risk for complications from the c-dif and the ETOH withdrawal. Will monitor very closely. PLAN PLAN see above Mercedes Ross MD Dec 03, 2016 12:58
[2016-12-03] MEDS: LACTOBACILLUS ACIDOPHILUS 1 GM PACKET PO SCH ×2 (13:00→16:21)
[2016-12-03] MEDS ORDERED: MELATONIN 5 MG TAB PO PRN (13:45)
--- NOTE | 2016-12-03 13:50 | PD.PSY.CON ---
Provisional Diagnosis Admission Date Dec 02, 2016 at 12:57 [place] I. 1. Alcohol dependence [place] II. Deferred History of Present Illness Service Psychiatry Consult Requested By Dr. Stearns Reason for Consult Suicidal ideation Primary Care Physician No Primary Care Physician HPI Mr. Mcmanus is a 61-year-old male with a history of alcohol use disorder who is presently admitted to the medical floor. He initially presented highly intoxicated with complaints of diarrhea, found to have colitis. Psychiatry is consulted because the patient apparently disclosed suicidal ideation during initial evaluation. However, looking at the time stamp of the H&P and comparing it to the time of his alcohol level, it is clear that the patient must have been quite intoxicated at that time. Reviewing the electronic medical record, I note that the patient was evaluated by Dr. Oconnell on 10/20. Patient seen and examined. Chart reviewed. On my examination today, the patient is clinically sober. Mood is stable; no depressive or hypomanic/manic symptoms elicited. No hopelessness/worthlessness. Appetite fair. Sleep somewhat disturbed. He denies any suicidal or homicidal ideation, intent or plan on direct questioning. Contracts for safety. Denies any audiovisual hallucinations. I can elicit no delusional material. The remainder of the psychiatric ROS is negative. The patient does not believe that he requires psychiatric admission and his pre-contemplative with regards to changing his pattern of alcohol use. Presenting diarrhea is reportedly improving. Past psychiatric history: Patient denies a history of psychiatric diagnosis. He denies a history of outpatient psychiatric treatment. He denies a history of inpatient psychiatric treatment. He denies a history of suicide attempts. Family history: Patient denies any family history of serious mental illness or suicide. He does endorse a family history of alcoholism. Chemical dependency history: Patient reports that he drinks a bottle of vodka daily. He endorses a history of blackouts. Endorses a history of DTs and seizures. He says that he had 8 years of sobriety with Alcoholics Anonymous and still goes to meetings occasionally now. He denies any other substance use. Social history: Patient reports that he lives with his . They were 20 years ago but have since but still live in the same house. They have children. He has 2 years of college. 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 Denies any access to guns or firearms. Review of Systems Except as stated in HPI: all other systems reviewed are Neg Past Family Social History Coded Allergies: Prozac (Unverified Allergy, Mild, Rash, 12/02/16) Penicillin (Verified Allergy, Unknown, 12/02/16) Past Medical History See EMR Discontinued Scripts Multiple Vitamin (Multi Vitamin Daily)1 Tab Tab1 Tab PO DAILY 30 Days Ref 0 Prov:Angelia Garcia MD 11/19/16 Thiamine HCl (Gnp Vitamin B-1)100 Mg [id number] Mg PO DAILY 30 Days Ref 0 Prov:Angelia Garcia MD 11/19/16 Metronidazole (Flagyl)500 Mg [id number] Mg PO Q8HR 7 Days Ref 0 Prov:Angelia Garcia MD 11/19/16 Current Medications Medications (Trade) Dose Ordered Sig/Pawel Route Start Time Stop Time Status Last Admin (NS Flush) 2 ml UNSCH PRN IV FLUSH 12/02/16 13:15 (NS Flush) 2 ml BID IV FLUSH 12/02/16 21:00 (Narcan Inj) 0.4 mg UNSCH PRN IV 12/02/16 13:15 (Deb-Colace) 1 tab BID PO 12/02/16 21:00 12/02/16 21:00 (Milk Of Magnesia Liq) 30 ml Q12H PRN PO 12/02/16 13:15 (Senokot) 17.2 mg Q12H PRN PO 12/02/16 13:15 (Dulcolax Supp) 10 mg DAILY PRN RECTAL 12/02/16 13:15 (Lactulose Liq) 30 ml DAILY PRN PO 12/02/16 13:15 (Romazicon Inj) 0.2 mg Q1M PRN IV PUSH 12/02/16 13:15 (Ativan) 1 mg Q4H PRN PO 12/02/16 13:15 12/02/16 18:34 (Ativan Inj) 1 mg Q4H PRN IV PUSH 12/02/16 13:15 12/03/16 12:54 (Ativan) 2 mg Q2H PRN PO 12/02/16 13:15 (Ativan Inj) 2 mg Q2H PRN IV PUSH 12/02/16 13:15 (Ativan Inj) 2 mg Q1H PRN IV PUSH 12/02/16 13:15 Lorazepam 2 mg 2 mg Q15M PRN IV PUSH 12/02/16 13:15 (NS 1000 ml Inj) 1,000 ml @ 75 mls/hr [id number] IV 12/02/16 17:00 12/03/16 12:54 (Flagyl) 500 mg TID PO 12/02/16 18:00 12/03/16 12:53 (Folate) 1 mg DAILY PO 12/02/16 17:30 12/07/16 17:29 12/03/16 08:26 (Vitamin B1) 100 mg DAILY PO 12/02/16 18:00 12/03/16 08:25 (Theragran M Tab) 1 tab DAILY PO 12/02/16 17:30 12/07/16 17:29 12/03/16 08:25 (Zofran Inj) 4 mg Q6H PRN IV 12/02/16 17:30 12/02/16 18:34 (Protonix) 40 mg DAILY PO 12/02/16 17:30 12/03/16 08:25 (Lovenox Inj) 40 mg Q24H SQ 12/02/16 18:00 12/02/16 18:33 (Vasotec Inj) 1.25 mg Q6H PRN IV 12/03/16 02:00 (Lactinex Pkt) 1 gm TID PO 12/03/16 13:00 12/03/16 13:00 (VANCOMYCIN for oral use only) 125 mg QID PO 12/03/16 13:00 12/03/16 12:54 (Librium) 10 mg Q8HR PO 12/03/16 22:00 (Melatonin) 5 mg HS PRN PO 12/03/16 13:45 UNV Patient's Strengths (min. 2) Able to access clinical care. Verbally fluent. Physical Exam Physical exam completed by primary team. On my examination today, patient appears to be in no acute physical distress. No motor abnormalities noted. No stigmata of withdrawal noted. Labs and vitals reviewed: Vital Signs Vital Signs Date Time Temp Pulse Resp B/P Pulse Ox O2 Delivery O2 Flow Rate FiO2 12/03/16 12:00 97.4 72 18 130/81 99 I/O 12/02/16 12/02/16 12/02/16 07:59 15:59 23:59 Intake Total 200 ml Balance 200 ml Lab Results Laboratory Tests Test 12/02/16 12/02/16 12/02/16 12/03/16 10:15 10:38 11:10 05:27 Ethyl Alcohol Level 429 MG/DL Neutrophils (%) (Auto) 76.8 % Lymphocytes (%) (Auto) 14.5 % Monocytes (%) (Auto) 7.2 % Eosinophils (%) (Auto) 0.7 % Basophils (%) (Auto) 0.8 % Neutrophils # (Auto) 7.3 TH/MM3 Lymphocytes # (Auto) 1.4 TH/MM3 Monocytes # (Auto) 0.7 TH/MM3 Eosinophils # (Auto) 0.1 TH/MM3 Basophils # (Auto) 0.1 TH/MM3 CBC Comment DIFF FINAL Differential Comment Stool C. difficile Toxin (PCR) POSITIVE Stl C. difficile Toxin PRESUMPTIVE Epiderm 027 NEGATIVE White Blood Count 5.4 TH/MM3 Red Blood Count 3.72 MIL/MM3 Hemoglobin 12.5 GM/DL Hematocrit 36.1 % Mean Corpuscular Volume 97.1 FL Mean Corpuscular Hemoglobin 33.5 PG Mean Corpuscular Hemoglobin 34.5 % Concent Red Cell Distribution Width 14.2 % Platelet Count 137 TH/MM3 Mean Platelet Volume 6.4 FL Sodium Level 137 MEQ/L Potassium Level 3.5 MEQ/L Chloride Level 101 MEQ/L Carbon Dioxide Level 26.5 MEQ/L Anion Gap 10 MEQ/L Blood Urea Nitrogen 4 MG/DL Creatinine 0.73 MG/DL Estimat Glomerular Filtration 110 ML/MIN Rate Random Glucose 87 MG/DL Calcium Level 8.2 MG/DL Total Bilirubin 0.8 MG/DL Aspartate Amino Transf 37 U/L (AST/SGOT) Alanine Aminotransferase 33 U/L (ALT/SGPT) Alkaline Phosphatase 94 U/L Total Protein 6.7 GM/DL Albumin 3.1 GM/DL Mental Status Examination Patient is in hospital gown. He is somewhat disheveled but maintaining basic hygiene. He is awake and alert and oriented 3. No evidence of delirium. No motor abnormalities noted. Speech within normal limits for rate, tone and volume. Language and fund of knowledge seemed average. Focus and concentration intact. Memory grossly intact on clinical exam. Mood fair and affect full and reactive. Thought process linear. No loosening of associations. No delusional material elicited. Denies audiovisual hallucinations. Denies suicidal or homicidal ideation, intent or plan. Insight and judgment are poor. Assessment & Plan Problem List: (1) EtOH dependence ICD Code: F10.20 Assessment & Plan This is a 61-year-old male with psychiatric history as detailed above who is presently admitted to the medical floor. Psychiatry is consulted because the patient verbalized suicidal ideation. As noted above, the patient was likely still highly intoxicated at the time of initial evaluation by the primary team. Now that he is clinically sober, he is denying suicidal or homicidal ideation. There is no evidence of any severely unstable mood, anxiety or psychotic disorder in this patient at this time. The patient's ongoing, severe alcohol use disorder is likely his greatest risk factor for self -harm. I have strongly recommended that the patient consider pursuing chemical dependency evaluation and treatment, but he is fairly pre-contemplative to changing his pattern of use as I said, and I fear his overall prognosis is poor unless he changes pattern of use. I recommend that he be referred for chemical dependency evaluation and treatment on discharge. The patient is not interested in psychiatric hospitalization at this time, nor does he meet criteria for involuntary psychiatric hospitalization. He does not require a sitter for safety. Patient to return to the psychiatric emergency room for concerning psychiatric symptoms as part of the general safety plan. Patient is psychiatrically clear for discharge. Thank you very much for this consultation. Please page [phone] with questions through the weekend. Dr. Estrada will resume seeing consults Sunday if you require further assistance with this patient. Request Surrog/Guard Advoc?: No Problem Qualifiers (1) EtOH dependence: Qualified Code: F10.20 - Uncomplicated alcohol dependence Dwight Campos MD Dec 03, 2016 13:50
[2016-12-03] MEDS: ENOXAPARIN SODIUM 40 MG/0.4 ML SYRINGE SQ SCH (16:21)
[2016-12-03] MEDS: LORazepam 1 MG TAB PO PRN ×2 (16:21→20:35)
[2016-12-04] VITALS: BP 149/75; PULSE 58; RESP 19; TEMP 97; O2SAT 98
[2016-12-04] MEDS: LORazepam 1 MG TAB PO PRN ×4 (00:45→20:29)
[2016-12-04] MEDS: SODIUM CHLOR 0.9% 1000 ML INJ 1,000 ML IV SCH ×2 (00:47→15:40)
[2016-12-04 08:00] VITALS: BP_SYST 138; BP_SYST 168; BP_DIAS 84; BP_DIAS 85; PULSE 50; PULSE 67; RESP 17; RESP 18; TEMP 97.4; TEMP 97.7; O2SAT 96; O2SAT 97
[2016-12-04] MEDS: LACTOBACILLUS ACIDOPHILUS 1 GM PACKET PO SCH ×3 (09:00→16:04)
[2016-12-04] MEDS: DOCUSATE SODIUM 50 MG/SENNA 8.6 MG TAB PO SCH ×2 (09:00→20:21)
[2016-12-04] MEDS: SODIUM CHLORIDE 0.9% FLUSH 10 ML FLUSH IV FLUSH SCH ×2 (09:21→20:29)
[2016-12-04] MEDS: MULTIVITAMINS/MINERALS THERAPEUTIC TAB PO SCH (09:21)
[2016-12-04] MEDS: FOLIC ACID 1 MG TAB PO SCH (09:21)
[2016-12-04] MEDS: VANCOMYCIN 500 MG VIAL (FOR ORAL USE ONLY) PO SCH ×4 (09:21→20:28)
[2016-12-04] MEDS: metroNIDAZOLE 500 MG TAB PO SCH ×3 (09:21→16:03)
[2016-12-04] MEDS: THIAMINE HCL 100 MG TAB PO SCH (09:21)
[2016-12-04] MEDS: PANTOPRAZOLE SOD 40 MG DELAYED RELEASE TAB PO SCH (09:21)
--- NOTE | 2016-12-04 11:38 | HHI.FPPN ---
Subjective Remarks Patient was seen and examined this morning. He states he feels better regarding his abdominal pain and diarrhea. Dates he only has abdominal discomfort, mild and the stools are now well formed. They continue to be nonbloody. He states that in regard to alcohol withdrawal, he feels about the same as yesterday if not a little bit improved. He continues to have hand shaking but denies any tactile or auditory hallucination. He states that he feels better after receiving Ativan which he continues to get regularly. He notes he would like to go to [facility] for inpatient alcohol withdrawal and wants to quit. (Sheyla Mayorga MD R1) Objective Vitals Vital Signs Date Time Temp Pulse Resp B/P Pulse Ox O2 Delivery O2 Flow Rate FiO2 12/04/16 08:00 97.7 67 17 138/84 96 12/04/16 00:00 97.0 58 19 149/75 98 12/03/16 20:00 98.0 65 18 132/71 99 12/03/16 17:05 131/79 12/03/16 16:00 97.8 71 18 131/79 97 12/03/16 12:00 97.4 72 18 130/81 99 I/O 12/03/16 12/03/16 12/03/16 12/04/16 12/04/16 12/04/16 07:00 15:00 23:00 07:00 15:00 23:00 Intake Total 630 ml 825 ml 1036 ml 240 ml Output Total 900 ml Balance 630 ml 825 ml 136 ml 240 ml Intake Oral 120 ml 236 ml 240 ml IV Total 510 ml 825 ml 800 ml Output Urine Total 900 ml # Voids 2 2 1 2 # Bowel Movements 1 1 2 (Sheyla Mayorga MD R1) Result Diagram: 12/03/16 0527 12/03/16 0527 Imaging Last Impressions Abdomen/Pelvis CT 12/02/16 0000 Signed Impressions: Service Date/Time: Friday, December 02, 2016 11:42 - CONCLUSION: Diffuse edema and wall thickening involving both small and large intestine consistent with enteritis and colitis. No evidence of abscess formation or free fluid. No other significant abnormality John Sagastume MD Objective Remarks GENERAL: Patient is a thin male lying in bed in no apparent distress. SKIN: Warm and dry. No rashes or bruises noted HEAD: Atraumatic. Normocephalic. EYES: Pupils equal and round. He does have notable conjunctival injection bilaterally without icterus. ENT: No nasal bleeding or discharge. Mucous membranes pink and moist. NECK: Trachea midline. No JVD. CARDIOVASCULAR: Regular rate and rhythm. Normal S1 and S2. No murmurs RESPIRATORY: No accessory muscle use. Clear to auscultation without crackles, wheezes, rhonchi.. Breath sounds equal bilaterally. GASTROINTESTINAL: Abdomen soft, non-tender, nondistended. He has normal bowel sounds. Hepatic and splenic margins not palpable. MUSCULOSKELETAL: Extremities without clubbing, cyanosis, or edema. No obvious deformities. NEUROLOGICAL: Awake and alert. He does have bilateral hand tremors, stable from yesterday. No obvious cranial nerve deficits. Motor grossly within normal limits. Five out of 5 muscle strength in the arms and legs. Normal speech and gait is steady. PSYCHIATRIC: Appropriate mood and affect; insight and judgment normal. He is mildly anxious. Not responding to internal stimuli. He denies SI/HI. Medications and IVs Inpatient Medications Bisacodyl (Dulcolax Supp) 10 mg DAILY PRN RECTAL SEVERE CONSITIPATION; Start at 13:15 Chlordiazepoxide (Librium) 10 mg Q8HR PO Last administered on 12/04/16 05:51; Start 12/03/16 at 22:00 Enalaprilat (Vasotec Inj) 1.25 mg Q6H PRN IV SBP> OR = 180, DBP> OR = 100; Start 12/03/16 at 02:00 Enoxaparin Sodium (Lovenox Inj) 40 mg Q24H SQ Last administered on 12/03/16 16 :21; Start 12/02/16 at 18:00 Flumazenil (Romazicon Inj) 0.2 mg Q1M PRN IV PUSH SEE LABEL COMMENTS; Start at 13:15 Folic Acid (Folate) 1 mg DAILY PO Last administered on 12/04/16 09:21; Start 12/02/16 at 17:30; Stop 12/07/16 at 17:29 Lactobacillus Acidophilus (Lactinex Pkt) 1 gm TID PO Last administered on 16:21; Start 12/03/16 at 13:00 Lactulose (Lactulose Liq) 30 ml DAILY PRN PO SEVERE CONSITIPATION; Start at 13:15 Lorazepam (Ativan Inj) 2 mg Q1H PRN IV PUSH CIWA 15-20; Start 12/02/16 at 13:15 Lorazepam (Ativan) 2 mg Q2H PRN PO CIWA 11-14; Start 12/02/16 at 13:15 Lorazepam 2 mg 2 mg Q15M PRN IV PUSH CIWA > 20; Start 12/02/16 at 13:15 Magnesium Hydroxide (Milk Of Magnesia Liq) 30 ml Q12H PRN PO MILD - MODERATE CONSTIPATION; Start 12/02/16 at 13:15 Melatonin (Melatonin) 5 mg HS PRN PO INSOMNIA; Start 12/03/16 at 13:45 Metronidazole (Flagyl) 500 mg TID PO Last administered on 12/04/16 09:21; Start 12/02/16 at 18:00 Multivitamins/ Minerals Therapeutic (Theragran M Tab) 1 tab DAILY PO Last administered on 12/04/16 09:21; Start 12/02/16 at 17:30; Stop 12/07/16 at 17:29 Naloxone HCl (Narcan Inj) 0.4 mg UNSCH PRN IV SEE LABEL COMMENTS; Start at 13:15 Ondansetron HCl (Zofran Inj) 4 mg Q6H PRN IV NAUSEA OR VOMITING Last administered on 12/02/16 18:34; Start 12/02/16 at 17:30 Pantoprazole Sodium (Protonix) 40 mg DAILY PO Last administered on 12/04/16 09 :21; Start 12/02/16 at 17:30 Pneumococcal Polyvalent Vaccine (Pneumovax-23 Inj) 25 mcg ONCE ONCE IM ; Start 12/03/16 at 10:00; Stop 12/03/16 at 10:01; Status DC Potassium Chloride (KCl) 60 meq ONCE ONCE PO Last administered on 12/02/16 11 :29; Start 12/02/16 at 11:30; Stop 12/02/16 at 11:31; Status DC Senna/Docusate Sodium (Deb-Colace) 1 tab BID PO Last administered on 20:35; Start 12/02/16 at 21:00 Sennosides (Senokot) 17.2 mg Q12H PRN PO MODERATE - SEVERE CONSTIPATION; Start 12/02/16 at 13:15 Sodium Chloride (NS 1000 ml Inj) 1,000 ml @ 75 mls/hr [id number] IV Last administered on 12/03/16 12:54; Start 12/02/16 at 17:00 Sodium Chloride (NS Flush) 2 ml BID IV FLUSH Last administered on 12/04/16 09: 21; Start 12/02/16 at 21:00 Thiamine HCl (Vitamin B1) 100 mg DAILY PO Last administered on 12/04/16 09:21 ; Start 12/02/16 at 18:00 Vancomycin HCl (VANCOMYCIN for oral use only) 125 mg QID PO Last administered on 12/04/16 09:21; Start 12/03/16 at 13:00 (Sheyla Mayorga MD R1) Urinary Catheter: No (Sheyla Mayorga MD R1) Vascular Central Line Catheter: No (Sheyla Mayorga MD R1) A/P Assessment and Plan Patient is a 61 year old male who presents to the ED with worsening diarrhea over the past two weeks. He was recently admitted to the hospital for c.diff colitis. He was treated and discharged after five days. While patient had not returned to baseline, his symptoms had dramatically improved. He was sent home with a course of Flagyl, which patient did not complete. Discharge Planning Possibly tomorrow. He continues to require significant Ativan for his alcohol withdrawal and states he would like to quit using alcohol and is at high risk of seizure if he is not closely monitored. He would like to be discharged with close follow-up with [facility] for alcohol withdrawal (Sheyla Mayorga MD R1) Attending Attestation Patient seen and examined. Case reviewed and discussed with the resident team. Agree with plan of care as discussed with me and documented in the resident note. Patient appears much better and symptoms of withdrawal appears mildly improved from yesterday. Patient is wanting detox with [facility] upon discharge -- he has h/ o 8 year sobriety in the past. Continue current treatment. Anticipate will be ready for d/c tomorrow. (Mercedes Ross MD) Problem List: (1) C. difficile colitis Status: Acute Plan: Symptoms have improved significantly. He will likely be ready for discharge tomorrow, as we would like to give him more doses of PO vancomycin prior to discharge Given difficulty in being able to afford medications, case management was consulted to assist in possibly getting patient antibiotics in hand prior to discharge, likely to be tomorrow Hospital Course: Patient was recently hospitalized and treated for c.diff colitis. He did not complete course of Flagyl at home. At this admission, c.diff Toxin PCR remains positive. WBC is normal. Albumin and Creatine are also normal. Patient meets criteria for mild to moderate C.diff colitis. * Started NS @ 100 mls/hr discontinued 12/03/2016 * Started Flagyl 500 mg 3 times per day PO - monitor patient closely for clinical improvement. * Vancomycin 125 mg by mouth 4 times per day PO initiated on 12/03 * Probiotics started as well (2) Alcohol withdrawal Status: Acute Plan: Symptoms are stable. He has expressed interest in doing an inpatient rehabilitation facility for monitored alcohol withdrawal. Case management was notified of this and state they will give him information for him to set up inpatient rehabilitation Hospital course: Patient admits to being a heavy drinker. He "self-medicates" using alcohol. Has a history of withdrawal seizures; last one was 6 months ago. * Started CIWA protocol * Ativan requirements over last 24 hours: 5 mg by mouth, 2 mg IV * Patient was started on Librium 10 mg TID on 12/03 given history of alcohol withdrawal seizures * Upon discharge, we will continue a Librium taper (3) Depression Status: Acute Plan: Patient endorses suicidal ideations but denies homicidal ideations at this time. He denies having active plans to kill himself. * Psychiatry consulted, appreciate evaluation: Patient does not meet criteria for involuntary psychiatric hospitalization. He is psychiatrically cleared for discharge. * Patient is referred to chemical dependency rehabilitation as noted above (4) Hepatitis C virus Status: Chronic Plan: History of Hepatitis C per patient. Stable. Never treated. Labs at admission showing normal liver enzymes, bilirubin, mildly low albumin Viral load in 2016 was very high, however, patient continues to drink and would not be at this time a good candidate for curative treatment He is counseled regarding this limitation and encouraged toward alcohol cessation (5) Fluid, Electrolytes, Nutrition and Prophylaxis Status: Acute Plan: Fluid: * PO hydration Electrolytes * Monitor and replete as needed Nutrition * Regular Diet as tolerated. DVT Prophylaxis * Lovenox 40 mg q24h SQ. * Ambulate early. GI Prophylaxis * Protonix 40 mg daily PO. (Sheyla Mayorga MD R1) Problem Qualifiers (1) Hepatitis C virus: Sheyla Mayorga MD R1 Dec 04, 2016 11:38 Mercedes Ross MD Dec 04, 2016 15:43
[2016-12-04 12:00] VITALS: BP 126/77; PULSE 64; RESP 17; TEMP 98.2; O2SAT 95
[2016-12-04 13:58] LABS: HEMATOCRIT 40.8 % (39.0-51.0); MEAN CELL VOLUME 98.1 FL (80.0-100.0); MEAN CORPUSCULAR HEMOGLOBIN 33.7 PG (27.0-34.0); MEAN CORPUSCULAR HGB CONC 34.4 % (32.0-36.0); PLATELET COUNT 118 TH/MM3 (150-450); RED BLOOD COUNT 4.16 MIL/MM3 (4.50-5.90); RED CELL DISTRIBUTION WIDTH 13.6 % (11.6-17.2); REVIEW FLAG FINAL; WHITE BLOOD COUNT 5.9 TH/MM3 (4.0-11.0)
[2016-12-04 14:20] LABS: POTASSIUM 3.6 MEQ/L (3.5-5.1)
[2016-12-04] MEDS ORDERED: METR-1 PO (15:20)
[2016-12-04] MEDS ORDERED: CHLO10CA5 PO (15:20)
[2016-12-04] MEDS ORDERED: THERM PO (15:20)
--- NOTE | 2016-12-04 15:21 | HHI.DCPOC ---
Discharge Care Plan Diagnosis: (1) C. difficile colitis (2) Alcohol withdrawal Goals to Promote Your Health * To prevent worsening of your condition and complications * To maintain your health at the optimal level Directions to Meet Your Goals Take your medications as prescribed Follow your dietary instruction Follow activity as directed Keep your appointments as scheduled Take your immunizations and boosters as scheduled If your symptoms worsen call your PCP, if no PCP go to Urgent Care Center or Emergency Room Smoking is Dangerous to Your Health. Avoid second hand smoke Call the 24-hour hour crisis hotline for domestic abuse at Sheyla Mayorga MD R1 Dec 04, 2016 15:21
[2016-12-04 16:00] VITALS: BP 148/73; PULSE 68; RESP 17; TEMP 98.4; O2SAT 98
[2016-12-04] MEDS: ONDANSETRON HCL 4 MG/2 ML VIAL IV PRN (16:03)
[2016-12-04] MEDS: ENOXAPARIN SODIUM 40 MG/0.4 ML SYRINGE SQ SCH (16:04)
[2016-12-05] VITALS: BP 147/73; PULSE 76; RESP 18; TEMP 96.5; O2SAT 97
[2016-12-05] MEDS: ONDANSETRON HCL 4 MG/2 ML VIAL IV PRN (00:38)
[2016-12-05] MEDS: LORazepam 1 MG TAB PO PRN ×2 (00:44→17:07)
[2016-12-05 04:00] VITALS: BP 141/80; PULSE 65; RESP 16; TEMP 96.7; O2SAT 97
[2016-12-05] MEDS: SODIUM CHLOR 0.9% 1000 ML INJ 1,000 ML IV SCH ×2 (05:00→17:07)
[2016-12-05 08:00] VITALS: BP 131/84; PULSE 74; RESP 18; TEMP 97; O2SAT 98
[2016-12-05] MEDS: DOCUSATE SODIUM 50 MG/SENNA 8.6 MG TAB PO SCH ×2 (09:07→21:23)
[2016-12-05] MEDS: MULTIVITAMINS/MINERALS THERAPEUTIC TAB PO SCH (09:07)
[2016-12-05] MEDS: metroNIDAZOLE 500 MG TAB PO SCH ×3 (09:07→17:07)
[2016-12-05] MEDS: FOLIC ACID 1 MG TAB PO SCH (09:08)
[2016-12-05] MEDS: SODIUM CHLORIDE 0.9% FLUSH 10 ML FLUSH IV FLUSH SCH ×2 (09:08→21:23)
[2016-12-05] MEDS: PANTOPRAZOLE SOD 40 MG DELAYED RELEASE TAB PO SCH (09:08)
[2016-12-05] MEDS: VANCOMYCIN 500 MG VIAL (FOR ORAL USE ONLY) PO SCH ×4 (09:08→21:24)
[2016-12-05] MEDS: THIAMINE HCL 100 MG TAB PO SCH (09:08)
[2016-12-05] MEDS: LACTOBACILLUS ACIDOPHILUS 1 GM PACKET PO SCH ×3 (09:08→17:07)
--- NOTE | 2016-12-05 09:52 | HHI.FPPN ---
Subjective Remarks Patient was seen and examined this morning. He states his abdominal discomfort is improved from yesterday. He still has tremors of the hands but feels steady on his feet. He again endorses plans to quit drinking alcohol and wants to go to rehab. He was given information by Case Mgmt yesterday for rehab facilities in the area but he has not called. He denies fevers, chills, nausea, vomiting, chest pain, shortness of breath this morning. He had some nausea last night which resolved spontaneously. (Sheyla Mayorga MD R1) Objective Vitals Vital Signs Date Time Temp Pulse Resp B/P Pulse Ox O2 Delivery O2 Flow Rate FiO2 12/05/16 08:00 97.0 74 18 131/84 98 12/05/16 04:00 96.7 65 16 141/80 97 12/05/16 00:00 96.5 76 18 147/73 97 12/04/16 16:00 98.4 68 17 148/73 98 12/04/16 12:00 98.2 64 17 126/77 95 I/O 12/04/16 12/04/16 12/04/16 12/05/16 12/05/16 12/05/16 07:00 15:00 23:00 07:00 15:00 23:00 Intake Total 240 ml 960 ml 0 ml 0 ml Balance 240 ml 960 ml 0 ml 0 ml Intake Oral 240 ml 960 ml IV Total 0 ml 0 ml 0 ml # Voids 2 3 # Bowel Movements 2 1 (Sheyla Mayorga MD R1) Result Diagram: 12/04/16 1310 12/04/16 1310 Imaging Last Impressions Abdomen/Pelvis CT 12/02/16 0000 Signed Impressions: Service Date/Time: Friday, December 02, 2016 11:42 - CONCLUSION: Diffuse edema and wall thickening involving both small and large intestine consistent with enteritis and colitis. No evidence of abscess formation or free fluid. No other significant abnormality John Sagastume MD Objective Remarks GENERAL: Patient is a thin male lying in bed in no apparent distress. SKIN: Warm and dry. No rashes or bruises noted. HEAD: Atraumatic. Normocephalic. EYES: Pupils equal and round. Conjunctival injection improved but still present. No scleral icterus. ENT: No nasal bleeding or discharge. Mucous membranes pink and moist. NECK: Trachea midline. No JVD. CARDIOVASCULAR: Regular rate and rhythm. Normal S1 and S2. No murmurs. RESPIRATORY: No accessory muscle use. Clear to auscultation without crackles, wheezes, rhonchi.. Breath sounds equal bilaterally. GASTROINTESTINAL: Abdomen soft, non-tender, nondistended. He has normal bowel sounds. Hepatic and splenic margins not palpable. MUSCULOSKELETAL: Extremities without clubbing, cyanosis, or edema. No obvious deformities. NEUROLOGICAL: Awake and alert. He does have bilateral hand tremors, stable. No obvious cranial nerve deficits. Motor grossly within normal limits. Five out of 5 muscle strength in the arms and legs. Normal speech and gait is steady. PSYCHIATRIC: Appropriate mood and affect; insight and judgment normal. Not responding to internal stimuli. Medications and IVs Inpatient Medications Bisacodyl (Dulcolax Supp) 10 mg DAILY PRN RECTAL SEVERE CONSITIPATION; Start at 13:15 Chlordiazepoxide (Librium) 10 mg Q8HR PO Last administered on 12/05/16 05:48; Start 12/03/16 at 22:00 Enalaprilat (Vasotec Inj) 1.25 mg Q6H PRN IV SBP> OR = 180, DBP> OR = 100; Start 12/03/16 at 02:00 Enoxaparin Sodium (Lovenox Inj) 40 mg Q24H SQ Last administered on 12/04/16 16 :04; Start 12/02/16 at 18:00 Flumazenil (Romazicon Inj) 0.2 mg Q1M PRN IV PUSH SEE LABEL COMMENTS; Start at 13:15 Folic Acid (Folate) 1 mg DAILY PO Last administered on 12/05/16 09:08; Start 12/02/16 at 17:30; Stop 12/07/16 at 17:29 Lactobacillus Acidophilus (Lactinex Pkt) 1 gm TID PO Last administered on 09:08; Start 12/03/16 at 13:00 Lactulose (Lactulose Liq) 30 ml DAILY PRN PO SEVERE CONSITIPATION; Start at 13:15 Lorazepam (Ativan Inj) 2 mg Q1H PRN IV PUSH CIWA 15-20; Start 12/02/16 at 13:15 Lorazepam (Ativan) 2 mg Q2H PRN PO CIWA 11-14; Start 12/02/16 at 13:15 Lorazepam 2 mg 2 mg Q15M PRN IV PUSH CIWA > 20; Start 12/02/16 at 13:15 Magnesium Hydroxide (Milk Of Magnnoemí Liq) 30 ml Q12H PRN PO MILD - MODERATE CONSTIPATION; Start 12/02/16 at 13:15 Melatonin (Melatonin) 5 mg HS PRN PO INSOMNIA; Start 12/03/16 at 13:45 Metronidazole (Flagyl) 500 mg TID PO Last administered on 12/05/16 09:07; Start 12/02/16 at 18:00 Multivitamins/ Minerals Therapeutic (Theragran M Tab) 1 tab DAILY PO Last administered on 12/05/16 09:07; Start 12/02/16 at 17:30; Stop 12/07/16 at 17:29 Naloxone HCl (Narcan Inj) 0.4 mg UNSCH PRN IV SEE LABEL COMMENTS; Start at 13:15 Ondansetron HCl (Zofran Inj) 4 mg Q6H PRN IV NAUSEA OR VOMITING Last administered on 12/05/16 00:38; Start 12/02/16 at 17:30 Pantoprazole Sodium (Protonix) 40 mg DAILY PO Last administered on 12/05/16 09 :08; Start 12/02/16 at 17:30 Pneumococcal Polyvalent Vaccine (Pneumovax-23 Inj) 25 mcg ONCE ONCE IM ; Start 12/03/16 at 10:00; Stop 12/03/16 at 10:01; Status DC Potassium Chloride (KCl) 60 meq ONCE ONCE PO Last administered on 12/02/16 11 :29; Start 12/02/16 at 11:30; Stop 12/02/16 at 11:31; Status DC Senna/Docusate Sodium (Deb-Colace) 1 tab BID PO Last administered on 09:07; Start 12/02/16 at 21:00 Sennosides (Senokot) 17.2 mg Q12H PRN PO MODERATE - SEVERE CONSTIPATION; Start 12/02/16 at 13:15 Sodium Chloride (NS 1000 ml Inj) 1,000 ml @ 75 mls/hr [id number] IV Last administered on 12/03/16 12:54; Start 12/02/16 at 17:00 Sodium Chloride (NS Flush) 2 ml BID IV FLUSH Last administered on 12/05/16 09: 08; Start 12/02/16 at 21:00 Thiamine HCl (Vitamin B1) 100 mg DAILY PO Last administered on 12/05/16 09:08 ; Start 12/02/16 at 18:00 Vancomycin HCl (VANCOMYCIN for oral use only) 125 mg QID PO Last administered on 12/05/16 09:08; Start 12/03/16 at 13:00 (Sheyla Mayorga MD R1) Urinary Catheter: No (Sheyla Mayorga MD R1) Vascular Central Line Catheter: No (Sheyla Mayorga MD R1) A/P Assessment and Plan Patient is a 61 year old male who presented with worsening abdominal pain and diarrhea 2 weeks plus alcohol intoxication. He was recently admitted and treated for only 5 days for C. difficile colitis and did not continue prescribed treatment (Flagyl by mouth) at home. He was admitted for inpatient monitoring for withdrawal and further management of C. difficile colitis. Discharge Planning Possibly today or tomorrow. His colitis is medically stable and can be managed as an outpatient with continued Flagyl. He continues to require significant Ativan for his alcohol withdrawal and states he would like to quit using alcohol and is at high risk of seizure if he is not closely monitored. He would like to be discharged with close follow-up with [facility] for alcohol withdrawal (Sheyla Mayorga MD R1) Attending Attestation Patient seen and examined. Case reviewed and discussed with the resident team. Agree with plan of care as discussed with me and documented in the resident note. (Merecdes Ross MD) Problem List: (1) C. difficile colitis Status: Acute Plan: Symptoms have improved significantly. He continues to have frequent but nonbloody stools, which are now more formed. Given difficulty in being able to afford medications, case management was consulted to assist in possibly getting patient antibiotics in hand prior to discharge Hospital Course: Patient was recently hospitalized and treated for Clostridium difficile colitis. He did not complete course of Flagyl at home. At this admission, c.diff Toxin PCR remains positive. WBC is normal. Albumin and Creatine are also normal. Patient meets criteria for mild to moderate C.diff colitis. * Started NS @ 100 mls/hr discontinued 12/03/2016 due to tolerating PO * Started Flagyl 500 mg 3 times per day PO - monitor patient closely for clinical improvement. * Vancomycin 125 mg PO 4 times per day PO initiated on 12/03 * Probiotics started on Day 2 of admission (2) Alcohol withdrawal Status: Acute Plan: Symptoms are stable. He has expressed interest in doing an inpatient rehabilitation facility for monitored alcohol withdrawal. Case management was notified of this and state they will give him information for him to set up inpatient rehabilitation Hospital course: Patient admits to being a heavy drinker. He "self-medicates" using alcohol. Has a history of withdrawal seizures; last one was 6 months ago. * Started CIWA protocol * Ativan requirements over last 24 hours: 5 mg by mouth, 2 mg IV * Patient was started on Librium 10 mg TID on 12/03 given history of alcohol withdrawal seizures * Upon discharge, we will continue a Librium taper. He has been thoroughly counseled on risks of alcohol use with Librium as well as Flagyl and expresses understanding (3) Depression Status: Acute Plan: Patient endorses suicidal ideations but denies homicidal ideations at this time. He denies having active plans to kill himself. * Psychiatry consulted, appreciate evaluation: Patient does not meet criteria for involuntary psychiatric hospitalization. He is psychiatrically cleared for discharge. * Patient is referred to chemical dependency rehabilitation as noted above (4) Hepatitis C virus Status: Chronic Plan: History of Hepatitis C per patient. Stable. Never treated. Labs at admission showing normal liver enzymes, bilirubin, mildly low albumin Viral load in 2016 was >1million, however, patient continues to drink and would not be at this time a good candidate for curative treatment He is counseled regarding this limitation and encouraged toward alcohol cessation (5) Fluid, Electrolytes, Nutrition and Prophylaxis Status: Acute Plan: Fluid: * PO hydration Electrolytes * Monitor and replete as needed Nutrition * Regular Diet as tolerated. DVT Prophylaxis * Lovenox 40 mg q24h SQ. * Ambulate early. GI Prophylaxis * Protonix 40 mg daily PO (Sheyla Mayorga MD R1) Problem Qualifiers (1) Hepatitis C virus: Sheyla Mayorga MD R1 Dec 05, 2016 09:52 Mercedes Ross MD Dec 05, 2016 13:00
[2016-12-05 12:00] VITALS: BP 107/70; PULSE 66; RESP 17; TEMP 97.8; O2SAT 98
--- NOTE | 2016-12-05 14:49 | HHI.PR ---
Addendum to Inpatient Note Addendum Reason: Additional Documentation Additional Information Patient was evaluated at bedside. He has not yet called any facilities on the given list for substance use rehabilitation, and was reminded to do so. He continues to feel better than when he was admitted. He states he will call [facility] today, and this facility was circled on his handout for quick reference. It was discussed that patient will be discharged tomorrow to home, and the importance of securing a rehab follow-up plan today was stressed. Sheyla Mayorga MD R1 Dec 05, 2016 14:49
[2016-12-05 16:00] VITALS: BP 125/75; PULSE 62; RESP 17; TEMP 98.3; O2SAT 98
[2016-12-05] MEDS: ENOXAPARIN SODIUM 40 MG/0.4 ML SYRINGE SQ SCH (17:07)
[2016-12-05 20:19] VITALS: BP 130/75; PULSE 65; RESP 17; TEMP 97; O2SAT 95
[2016-12-06 00:17] VITALS: BP 131/76; PULSE 65; RESP 17; TEMP 97.3; O2SAT 98
[2016-12-06 07:38] LABS: BICARBONATE 25.7 MEQ/L (21.0-32.0); POTASSIUM 3.6 MEQ/L (3.5-5.1)
[2016-12-06] MEDS: SODIUM CHLOR 0.9% 1000 ML INJ 1,000 ML IV SCH (07:40)
[2016-12-06 08:00] VITALS: BP 123/72; PULSE 69; RESP 18; TEMP 97.9; O2SAT 100
--- NOTE | 2016-12-06 08:57 | HHI.FPPN ---
Subjective Remarks Patient was seen and examined this morning. He states he feels great. He has spoken with a software support representative from [facility] and says his will take him to the facility straight from the hospital for an evaluation. He still endorses motivation for complete alcohol cessation. His withdrawal symptoms are not bothersome and he is steady on his feet. His GI symptoms have resolved: he has no abdominal pain, and states his bowel movements are formed and nonbloody. He is eating regular diet. No chest pain, sob, chest pain, headaches. Tremors persist but stable. (Sheyla Mayorga MD R1) Objective Vitals Vital Signs Date Time Temp Pulse Resp B/P Pulse Ox O2 Delivery O2 Flow Rate FiO2 12/06/16 00:17 97.3 65 17 131/76 98 12/05/16 20:19 97.0 65 17 130/75 95 12/05/16 16:00 98.3 62 17 125/75 98 12/05/16 12:00 97.8 66 17 107/70 98 I/O 12/05/16 12/05/16 12/05/16 12/06/16 12/06/16 12/06/16 07:00 15:00 23:00 07:00 15:00 23:00 Intake Total 0 ml 340 ml 480 ml 360 ml Balance 0 ml 340 ml 480 ml 360 ml Intake Oral 340 ml 480 ml 360 ml IV Total 0 ml 0 ml # Voids 4 2 3 # Bowel Movements 2 (Sheyla Mayorga MD R1) Result Diagram: 12/04/16 1310 12/06/16 0556 Imaging Last Impressions Abdomen/Pelvis CT 12/02/16 0000 Signed Impressions: Service Date/Time: Friday, December 02, 2016 11:42 - CONCLUSION: Diffuse edema and wall thickening involving both small and large intestine consistent with enteritis and colitis. No evidence of abscess formation or free fluid. No other significant abnormality John Sagastume MD Objective Remarks GENERAL: Patient is a thin male eating breakfast. Sitting up at bedside. SKIN: Warm and dry. No rashes or bruises noted. HEAD: Atraumatic. Normocephalic. EYES: Pupils equal and round. Conjunctival injection improved. No scleral icterus. ENT: No nasal bleeding or discharge. Mucous membranes pink and moist. NECK: Trachea midline. No JVD. CARDIOVASCULAR: Regular rate and rhythm. Normal S1 and S2. No murmurs. RESPIRATORY: No accessory muscle use. Clear to auscultation without crackles, wheezes, rhonchi.. Breath sounds equal bilaterally. GASTROINTESTINAL: Abdomen soft, non-tender, nondistended. He has normal bowel sounds. Hepatic and splenic margins not palpable. MUSCULOSKELETAL: Extremities without clubbing, cyanosis, or edema. No obvious deformities. NEUROLOGICAL: Awake and alert. He does have bilateral hand tremors, stable. No obvious cranial nerve deficits. Motor grossly within normal limits. Normal speech and gait is steady. PSYCHIATRIC: Appropriate mood and affect; insight and judgment normal. Not responding to internal stimuli. Medications and IVs Inpatient Medications Bisacodyl (Dulcolax Supp) 10 mg DAILY PRN RECTAL SEVERE CONSTIPATION; Start at 13:15 Chlordiazepoxide (Librium) 15 mg Q8HR PO Last administered on 12/06/16 06:26; Start 12/05/16 at 14:00 Enalaprilat (Vasotec Inj) 1.25 mg Q6H PRN IV SBP> OR = 180, DBP> OR = 100; Start 12/03/16 at 02:00 Enoxaparin Sodium (Lovenox Inj) 40 mg Q24H SQ Last administered on 12/05/16 17 :07; Start 12/02/16 at 18:00 Flumazenil (Romazicon Inj) 0.2 mg Q1M PRN IV PUSH SEE LABEL COMMENTS; Start at 13:15 Folic Acid (Folate) 1 mg DAILY PO Last administered on 12/05/16 09:08; Start 12/02/16 at 17:30; Stop 12/07/16 at 17:29 Lactobacillus Acidophilus (Lactinex Pkt) 1 gm TID PO Last administered on 17:07; Start 12/03/16 at 13:00 Lactulose (Lactulose Liq) 30 ml DAILY PRN PO SEVERE CONSITIPATION; Start at 13:15 Lorazepam (Ativan Inj) 2 mg Q1H PRN IV PUSH CIWA 15-20; Start 12/02/16 at 13:15 Lorazepam (Ativan) 2 mg Q2H PRN PO CIWA 11-14; Start 12/02/16 at 13:15 Lorazepam 2 mg 2 mg Q15M PRN IV PUSH CIWA > 20; Start 12/02/16 at 13:15 Magnesium Hydroxide (Milk Of Magnesia Liq) 30 ml Q12H PRN PO MILD - MODERATE CONSTIPATION; Start 12/02/16 at 13:15 Melatonin (Melatonin) 5 mg HS PRN PO INSOMNIA; Start 12/03/16 at 13:45 Metronidazole (Flagyl) 500 mg TID PO Last administered on 12/05/16 17:07; Start 12/02/16 at 18:00 Multivitamins/ Minerals Therapeutic (Theragran M Tab) 1 tab DAILY PO Last administered on 12/05/16 09:07; Start 12/02/16 at 17:30; Stop 12/07/16 at 17:29 Naloxone HCl (Narcan Inj) 0.4 mg UNSCH PRN IV SEE LABEL COMMENTS; Start at 13:15 Ondansetron HCl (Zofran Inj) 4 mg Q6H PRN IV NAUSEA OR VOMITING Last administered on 12/05/16 00:38; Start 12/02/16 at 17:30 Pantoprazole Sodium (Protonix) 40 mg DAILY PO Last administered on 12/05/16 09 :08; Start 12/02/16 at 17:30 Pneumococcal Polyvalent Vaccine (Pneumovax-23 Inj) 25 mcg ONCE ONCE IM ; Start 12/03/16 at 10:00; Stop 12/03/16 at 10:01; Status DC Potassium Chloride (KCl) 60 meq ONCE ONCE PO Last administered on 12/02/16 11 :29; Start 12/02/16 at 11:30; Stop 12/02/16 at 11:31; Status DC Senna/Docusate Sodium (Deb-Colace) 1 tab BID PO Last administered on 09:07; Start 12/02/16 at 21:00 Sennosides (Senokot) 17.2 mg Q12H PRN PO MODERATE - SEVERE CONSTIPATION; Start 12/02/16 at 13:15 Sodium Chloride (NS 1000 ml Inj) 1,000 ml @ 75 mls/hr [id number] IV Last administered on 12/03/16 12:54; Start 12/02/16 at 17:00 Sodium Chloride (NS Flush) 2 ml BID IV FLUSH Last administered on 12/05/16 21: 23; Start 12/02/16 at 21:00 Thiamine HCl (Vitamin B1) 100 mg DAILY PO Last administered on 12/05/16 09:08 ; Start 12/02/16 at 18:00 Vancomycin HCl (VANCOMYCIN for oral use only) 125 mg QID PO Last administered on 12/05/16 21:24; Start 12/03/16 at 13:00 (Sheyla Mayorga MD R1) Urinary Catheter: No (Sheyla Mayorga MD R1) Vascular Central Line Catheter: No (Sheyla Mayorga MD R1) A/P Assessment and Plan Patient is a 61 year old male who presented with worsening abdominal pain and diarrhea 2 weeks plus alcohol intoxication. He was recently admitted and treated for only 5 days for C. difficile colitis and did not continue prescribed treatment (Flagyl by mouth) at home. He was admitted for inpatient monitoring for withdrawal and further management of C. difficile colitis. Discharge Planning Discharge today to home. His colitis is medically stable and can be managed as an outpatient with continued Flagyl. He plans to go to [facility] directly upon discharge for possible inpatient management of chemical dependency He is ready for discharge with close follow-up with [facility] for alcohol withdrawal ( Sheyla Mayorga MD R1) Attending Attestation Patient seen and examined. Case reviewed and discussed with the resident team. Agree with plan of care as discussed with me and documented in the resident note. (Mercedes Ross MD) Problem List: (1) C. difficile colitis Status: Acute Plan: Symptoms have improved significantly. He continues to have frequent more formed stools and abdominal pain resolved Given difficulty in being able to afford medications, case management was consulted to assist in possibly getting patient antibiotics in hand prior to discharge He will continue 12 days of Flagyl at home. He will get script in hand per case management, and get set up with [facility] for follow-up in one week He is to continue probiotics over the counter Hospital Course: Patient was recently hospitalized and treated for Clostridium difficile colitis. He did not complete course of Flagyl at home. At this admission, c.diff Toxin PCR remains positive. WBC is normal. Albumin and Creatine are also normal. Patient meets criteria for mild to moderate C.diff colitis. * Started NS @ 100 mls/hr discontinued 12/03/2016 due to tolerating PO * Started Flagyl 500 mg 3 times per day PO - monitor patient closely for clinical improvement. * Vancomycin 125 mg PO 4 times per day PO initiated on 12/03 * Probiotics started on Day 2 of admission (2) Alcohol withdrawal Status: Acute Plan: Symptoms are stable. He has expressed interest in doing an inpatient rehabilitation facility for monitored alcohol withdrawal. Case management was notified of this and state they will give him information for him to set up inpatient rehabilitation Hospital course: Patient admits to being a heavy drinker. He "self-medicates" using alcohol. Has a history of withdrawal seizures; last one was 6 months ago. * Started CIWA protocol * Ativan requirements over last 24 hours: 5 mg by mouth, 2 mg IV * Patient was started on Librium 10 mg TID on 12/03 given history of alcohol withdrawal seizures * Upon discharge, we will continue a Librium taper. He has been thoroughly counseled on risks of alcohol use with Librium as well as Flagyl and expresses understanding (3) Depression Status: Acute Plan: Stable. Going to [facility] after discharge. Recommended follow-up with PCP Hospital Course: Patient endorses suicidal ideations but denies homicidal ideations at this time. He denies having active plans to kill himself. * Psychiatry consulted, appreciate evaluation: Patient does not meet criteria for involuntary psychiatric hospitalization. He is psychiatrically cleared for discharge. * Patient is referred to chemical dependency rehabilitation as noted above (4) Hepatitis C virus Status: Chronic Plan: History of Hepatitis C per patient. Stable. Never treated. Labs at admission showing normal liver enzymes, bilirubin, mildly low albumin Viral load in 2016 was >1million, however, patient continues to drink and would not be at this time a good candidate for curative treatment He is counseled regarding this limitation and encouraged toward alcohol cessation so that he can be treated in the future (5) Fluid, Electrolytes, Nutrition and Prophylaxis Status: Acute Plan: Fluid: * PO hydration Electrolytes * Monitor and replete as needed Nutrition * Regular Diet as tolerated. DVT Prophylaxis * Lovenox 40 mg q24h SQ. * Ambulate early. GI Prophylaxis * Protonix 40 mg daily PO (Sheyla Mayorga MD R1) Problem Qualifiers (1) Hepatitis C virus: Sheyla Mayorga MD R1 Dec 06, 2016 08:57 Mercedes Ross MD Dec 06, 2016 15:20
[2016-12-06] MEDS: LACTOBACILLUS ACIDOPHILUS 1 GM PACKET PO SCH (09:00)
[2016-12-06] MEDS: VANCOMYCIN 500 MG VIAL (FOR ORAL USE ONLY) PO SCH (09:00)
[2016-12-06] MEDS: metroNIDAZOLE 500 MG TAB PO SCH (09:00)
[2016-12-06] MEDS: PANTOPRAZOLE SOD 40 MG DELAYED RELEASE TAB PO SCH (09:00)
[2016-12-06] MEDS: DOCUSATE SODIUM 50 MG/SENNA 8.6 MG TAB PO SCH (09:00)
[2016-12-06] MEDS: THIAMINE HCL 100 MG TAB PO SCH (09:00)
[2016-12-06] MEDS: FOLIC ACID 1 MG TAB PO SCH (09:00)
[2016-12-06] MEDS: MULTIVITAMINS/MINERALS THERAPEUTIC TAB PO SCH (09:00)
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
== END 2016-12-06 11:50 | disposition home or self-care (01) | DRG 372 ==
LOC: NEPD 09:38 → NEDA 12:57 → NEPHCDU 14:48 → N07B 12-03 00:29
PROVIDERS: ADMIT Family Medicine; ATTEND Family Medicine
DX: A04.7 Enterocolitis due to Clostridium difficile (principal); F10.239 Alcohol dependence with withdrawal, unspecified; R45.851 Suicidal ideations; E46 Unspecified protein-calorie malnutrition; I48.91 Unspecified atrial fibrillation; F32.9 Major depressive disorder, single episode, unspecified; E87.6 Hypokalemia; F41.9 Anxiety disorder, unspecified; Y90.8 Blood alcohol level of 240 mg/100 ml or more; Z68.20 Body mass index [BMI] 20.0-20.9, adult; B19.20 Unspecified viral hepatitis C without hepatic coma; Z88.0 Allergy status to penicillin; Z87.891 Personal history of nicotine dependence; Z91.14 Patient's other noncompliance with medication regimen; Z53.29 Procedure and treatment not carried out because of patient's decision for other reasons
CPT/HCPCS: 74177; 80048; 80053; 80307; 82948; 85025; 85027; 87493; J1650; J2060; J2405; J7030; Q9967

== ENCOUNTER 2016-12-09 09:27 | Emergency (ER) | payer OTHER ==
[~2016-12-09] VITALS: Ht 182.9 cm; Wt 75.0 kg
[~2016-12-09 09:27] MED LIST changes: +CHLO10CA5 PO; -GNP100TA3 PO; -MULT1TAB46 PO; +THERM PO
--- NOTE | 2016-12-09 09:33 | PD ---
HPI . wants clearance to go to detox Chief Complaint: wants clearance to go to detox Time Seen by Provider: 09:42 Travel History International Travel<30 days: No Contact w/Intl Traveler<30days: No Traveled to known affect area: No History of Present Illness HPI 61-year-old male who was recently discharged from the hospital secondary to C. difficile colitis here requesting clearance for detox. Patient admits to alcohol abuse and states that he wants to get help. He was last seen here in the hospital on December 04 and discharged home with a prescription for metronidazole for treatment of his C. difficile colitis, however patient appears to not have been taking the medication. According to the paramedics that brought the patient in, there was no evidence of this medication at his home. He tells me he is taking it, but continues to have approximately 5+ loose stools per day. He tells me that the stools are better formed, but still soft. Vital signs are stable, he has no complaint of fever or chills. Patient also reporting that he wants to . He does not have a plan, but reports depression. Workup last time in the emergency department reveal CT scan of the abdomen and pelvis with signs of colitis. C. difficile toxin was positive. PFSH Past Medical History Atrial Fibrillation: Yes Anxiety: Yes Depression: Yes Heart Rhythm Problems: No Cancer: No Cardiovascular Problems: No High Cholesterol: No Chest Pain: No Congestive Heart Failure: No Cerebrovascular Accident: No Diabetes: No Dialysis: No Diminished Hearing: No Endocrine: No Gastrointestinal Disorders: Yes (CDT colitis) GERD: No Genitourinary: No Hepatitis: Yes Hiatal Hernia: No Heparin Induced Thrombocytopen: No Hypertension: No Immune Disorder: No Implanted Vascular Access Dvce: No Kidney Stones: No Musculoskeletal: No Neurologic: No Psychiatric: No Reproductive: No Respiratory: No Immunizations Current: Yes Migraines: No Renal Failure: No Seizures: Yes (RELATED TO ALCOHOL WITHDRAW) Sickle Cell Disease: No Ulcer: No Past Surgical History Abdominal Surgery: No AICD: No Arteriovenous Shunt: No Cardiac Surgery: No Ear Surgery: No Endocrine Surgery: No Eye Surgery: No Genitourinary Surgery: No Gynecologic Surgery: No Insulin Pump: No Joint Replacement: No Neurologic Surgery: No Oral Surgery: Yes Pacemaker: No Thoracic Surgery: No Other Surgery: Yes (UNKNOWN BACK SURGERY) Social History Alcohol Use: Yes (pt states "I drink enough to stop the shakes", abuses frequently) Tobacco Use: No Substance Use: Yes (DRUGS (5 YEARS AGO) ) Allergies-Medications (Allergen,Severity, Reaction): Coded Allergies: Prozac (Unverified Allergy, Mild, Rash, 12/02/16) Penicillin (Verified Allergy, Unknown, 12/02/16) Reported Meds & Prescriptions Reported Meds & Active Scripts Active Flagyl (Metronidazole) 500 Mg Tab 500 Mg PO TID Chlordiazepoxide HCl 10 Mg Capsule 10 Mg PO Q8HR Take one capsule every 8 hours for day 1 and 2, then take one capsule every 12 hours for day 3 and 4, then take one capsule on day 5, then stop. Review of Systems General / Constitutional: No: Fever Eyes: No: Visual changes HENT: No: Headaches Cardiovascular: No: Chest Pain or Discomfort Respiratory: No: Shortness of Breath Gastrointestinal: Positive: Diarrhea, Abdominal Pain Genitourinary: No: Dysuria Musculoskeletal: No: Pain Skin: No Rash Neurologic: No: Weakness Psychiatric: No: Depression Endocrine: No: Polydipsia Hematologic/Lymphatic: No: Easy Bruising Physical Exam Narrative GENERAL: no acute distress, Well-nourished, well-developed patient. acutely intoxicated SKIN: Warm and dry. No visible rashes or bruising. HEAD: Normocephalic and atraumatic. EYES: No scleral icterus. No injection or drainage. EOM intact, PERRLA ENT: No nasal drainage noted. Mucous membranes pink. Airway patent. NECK: Supple, trachea midline. No JVD. CARDIOVASCULAR: Regular rate and rhythm without murmurs, gallops, or rubs. RESPIRATORY: Breath sounds equal bilaterally. No accessory muscle use. No rhonchi or rales. GASTROINTESTINAL: Abdomen soft, non-tender, nondistended. EXTREMITIES: No cyanosis or edema. BACK: No obvious deformity. NEURO: CN II-12 intact, PSYCH: AAO x 3, normal affect. Data Data Last Documented VS Vital Signs Date Time Temp Pulse Resp B/P Pulse Ox O2 Delivery O2 Flow Rate FiO2 12/09/16 16:47 74 18 115/66 97 Room Air 12/09/16 09:37 97.9 Orders Complete Blood Count With Diff (12/09/16 09:40) Comprehensive Metabolic Panel (12/09/16 09:40) Iv Access Insert/Monitor (12/09/16 09:40) Ecg Monitoring (12/09/16 09:40) Oximetry (12/09/16 09:40) Sodium Chloride 0.9% Flush (Ns Flush) (12/09/16 09:45) Alcohol (Ethanol) (12/09/16 09:40) C Diff Toxin Pcr (12/09/16 09:40) Psych Screen (12/09/16 09:49) Drug Screen, Random Urine (12/09/16 09:49) Alcohol Withdrawal Asmt-Ciwa ONCE (12/09/16 15:07) Flumazenil Inj (Romazicon Inj) (12/09/16 15:15) Lorazepam (Ativan) (12/09/16 15:15) Lorazepam Inj (Ativan Inj) (12/09/16 15:15) Lorazepam (Ativan) (12/09/16 15:15) Lorazepam Inj (Ativan Inj) (12/09/16 15:15) Lorazepam Inj (Ativan Inj) (12/09/16 15:15) Lorazepam Inj (Ativan Inj) (12/09/16 15:15) Labs Laboratory Tests Test 12/09/16 09:50 White Blood Count 6.1 TH/MM3 Red Blood Count 4.01 MIL/MM3 Hemoglobin 13.4 GM/DL Hematocrit 39.4 % Mean Corpuscular Volume 98.4 FL Mean Corpuscular Hemoglobin 33.4 PG Mean Corpuscular Hemoglobin 34.0 % Concent Red Cell Distribution Width 14.3 % Platelet Count 122 TH/MM3 Mean Platelet Volume 6.3 FL Neutrophils (%) (Auto) 47.5 % Lymphocytes (%) (Auto) 32.7 % Monocytes (%) (Auto) 12.9 % Eosinophils (%) (Auto) 5.5 % Basophils (%) (Auto) 1.4 % Neutrophils # (Auto) 2.9 TH/MM3 Lymphocytes # (Auto) 2.0 TH/MM3 Monocytes # (Auto) 0.8 TH/MM3 Eosinophils # (Auto) 0.3 TH/MM3 Basophils # (Auto) 0.1 TH/MM3 CBC Comment DIFF FINAL Differential Comment Sodium Level 144 MEQ/L Potassium Level 3.9 MEQ/L Chloride Level 108 MEQ/L Carbon Dioxide Level 26.6 MEQ/L Anion Gap 9 MEQ/L Blood Urea Nitrogen 12 MG/DL Creatinine 0.76 MG/DL Estimat Glomerular Filtration 105 ML/MIN Rate Random Glucose 84 MG/DL Calcium Level 8.2 MG/DL Total Bilirubin 0.2 MG/DL Aspartate Amino Transf 106 U/L (AST/SGOT) Alanine Aminotransferase 69 U/L (ALT/SGPT) Alkaline Phosphatase 97 U/L Total Protein 7.8 GM/DL Albumin 3.7 GM/DL Ethyl Alcohol Level 458 MG/DL [facility] Medical Decision Making Medical Screen Exam Complete: Yes Emergency Medical Condition: Yes Medical Record Reviewed: Yes Differential Diagnosis C. difficile colitis, alcohol abuse, drug induced mood disorder Narrative Course 61-year-old male here requesting clearance to go to detox. He also has recent diagnosis of C. difficile and is still having loose stools. IV access was obtained, labs and stool sample have been ordered. He is also stating that he wants to , therefore psych screen has been requested. labs were reviewed and patient was medically cleared: stool was still pending. Patient was unable to leave stool sample. He was seen by psych and cleared. Diagnosis Primary Impression: Suicidal ideation Additional Impression: C. difficile colitis Condition: Stable Victorina Marie Dec 09, 2016 09:33
[2016-12-09 09:37] VITALS: BP 144/79; PULSE 84; RESP 15; TEMP 97.9; O2SAT 95
[2016-12-09 09:44] VITALS: BP 144/79; PULSE 84; RESP 15; O2SAT 95
[2016-12-09] MEDS ORDERED: SODIUM CHLORIDE 0.9% FLUSH 10 ML FLUSH IV FLUSH PRN (09:45)
[2016-12-09 10:21] LABS: AUTOMATED NEUTROPHIL # 2.9 TH/MM3 (1.8-7.7); BASOPHIL # 0.1 TH/MM3 (0-0.2); BASOPHIL % 1.4 % (0.0-2.0); EOSINOPHIL # 0.3 TH/MM3 (0-0.4); EOSINOPHIL % 5.5 % (0.0-4.0); HEMATOCRIT 39.4 % (39.0-51.0); HEMO FLAGS DIFF FINAL; LYMPH % 32.7 % (9.0-44.0); MEAN CELL VOLUME 98.4 FL (80.0-100.0); MEAN CORPUSCULAR HEMOGLOBIN 33.4 PG (27.0-34.0); MONO % 12.9 % (0.0-8.0); NEUT % 47.5 % (16.0-70.0); PLATELET COUNT 122 TH/MM3 (150-450); RED BLOOD COUNT 4.01 MIL/MM3 (4.50-5.90); RED CELL DISTRIBUTION WIDTH 14.3 % (11.6-17.2); WHITE BLOOD COUNT 6.1 TH/MM3 (4.0-11.0)
[2016-12-09 10:43] LABS: ALKALINE PHOSPHATASE 97 U/L (45-117); ALT (GPT) 69 U/L (12-78); ANION GAP 9 MEQ/L (5-15); AST (GOT) 106 U/L (15-37); BICARBONATE 26.6 MEQ/L (21.0-32.0); BLOOD UREA NITROGEN 12 MG/DL (7-18); CHLORIDE 108 MEQ/L (98-107); GLOMERULAR FILTRATION RATE 105 ML/MIN (>89); POTASSIUM 3.9 MEQ/L (3.5-5.1); SODIUM (NA) 144 MEQ/L (136-145); TOTAL BILIRUBIN ADULT 0.2 MG/DL (0.2-1.0)
[2016-12-09 12:08] VITALS: BP 108/62; PULSE 71; RESP 22; O2SAT 99
[2016-12-09] MEDS ORDERED: FLUMAZENIL 0.5 MG/5 ML VIAL IV PUSH PRN (15:15)
[2016-12-09] MEDS ORDERED: LORazepam 2 MG/ML VIAL IV PUSH PRN ×4 (15:15)
[2016-12-09] MEDS ORDERED: LORazepam 2 MG TAB PO PRN (15:15)
[2016-12-09] MEDS ORDERED: LORazepam 1 MG TAB PO PRN (15:15)
[2016-12-09 15:21] VITALS: BP 100/64; PULSE 62; RESP 18; O2SAT 96
--- NOTE | 2016-12-09 16:42 | PD ---
History of Present Illness Chief Complaint: Alcohol/Drug Intoxication Time Seen by Provider: 16:30 Travel History International Travel<30 Days: No Contact w/Intl Traveler<30days: No Known affected area: No Legal Status Legal Status: Voluntary History of Present Illness: History of Present Illness HPI 61-year-old male with history of alcohol use disorder who presents to ED on a voluntary basis requesting clearance for admission to [facility] detox. Patient also reporting that he wants to . He does not have a plan, but reports depression. BAL on arrival to ED is 458. EMR is reviewed. Multiple visits to ED for alcohol intoxication as well as suicidal ideation in context of alcohol intoxication. The patient is seen in main ED. Awake, alert male . he is clinically sober. His speech is clear, logical and goal directed. He does not exhibit any acute psychiatric symptomatology. no evidence of any psychosis, no dilip or hypomania. He denies suicidal ideation, intent or plan. No homicidal ideation. States he is ready to seek treatment for his alcohol abuse at this time. he is aware of required process to gain admission at [facility]. . PFSH Past Medical History Atrial Fibrillation: Yes Anxiety: Yes Depression: Yes Heart Rhythm Problems: No Cancer: No Cardiovascular Problems: No High Cholesterol: No Chest Pain: No Congestive Heart Failure: No Cerebrovascular Accident: No Diabetes: No Dialysis: No Diminished Hearing: No Endocrine: No Gastrointestinal Disorders: Yes (CDT colitis) GERD: No Genitourinary: No Hepatitis: Yes (HEP C) Hiatal Hernia: No Heparin Induced Thrombocytopen: No Hypertension: No Immune Disorder: No Implanted Vascular Access Dvce: No Kidney Stones: No Musculoskeletal: No Neurologic: No Psychiatric: No Reproductive: No Respiratory: No Immunizations Current: Yes Migraines: No Renal Failure: No Seizures: Yes (RELATED TO ALCOHOL WITHDRAW) Sickle Cell Disease: No Ulcer: No Influenza Vaccination: Yes Past Surgical History Abdominal Surgery: No AICD: No Arteriovenous Shunt: No Cardiac Surgery: No Ear Surgery: No Endocrine Surgery: No Eye Surgery: No Genitourinary Surgery: No Gynecologic Surgery: No Insulin Pump: No Joint Replacement: No Neurologic Surgery: No Oral Surgery: Yes Pacemaker: No Thoracic Surgery: No Other Surgery: Yes (UNKNOWN BACK SURGERY) Psychiatric History Psychiatric History Hx Psychiatric Treatment: PATIENT WAS LAST ADMITTED TO [facility] FROM 11/25/15 TO 11/29/15 FOR DEPRESSION associated with alcohol abuse. History of Inpatient Treatment: Yes Guns or firearms in home: No Social History but male. 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 lives with . Hx Alcohol Use: Yes (pt states "I drink enough to stop the shakes", abuses frequently) Hx Tobacco Use: No Hx Substance Use: Yes (DRUGS (5 YEARS AGO) ) Substance Use Type: Alcohol, Heroin Other Substances Used: last alcohol 0200 and last heroin 3 days ago Hx of Substance Use Treatment: Yes Family Psychiatric History Negative Allergies-Medications (Allergen,Severity, Reaction): Coded Allergies: Prozac (Unverified Allergy, Mild, Rash, 12/02/16) Penicillin (Verified Allergy, Unknown, 12/02/16) Reported Meds & Prescriptions Reported Meds & Active Scripts Active Flagyl (Metronidazole) 500 Mg Tab 500 Mg PO TID Chlordiazepoxide HCl 10 Mg Capsule 10 Mg PO Q8HR Take one capsule every 8 hours for day 1 and 2, then take one capsule every 12 hours for day 3 and 4, then take one capsule on day 5, then stop. Review of Systems Except as stated in HPI: all other systems reviewed are Neg Gastrointestinal: COMPLAINS OF: Abdominal pain, Diarrhea Exam Alert: Yes [place]: Person (ox4) Mood: Calm Affect: Appropriate Speech: Clear, Logical Eye Contact: Normal Memory Intact: Comment (No impairmetn) Hallucinations: Other (Negative) Delusions: No Suicidal: Ideation (Negative) Homicidal: Ideation (Negative) Insight/Judgement Fair. Not impaired. [facility] Medical Decision Making Medical Record Reviewed: Yes Assessment/Plan This is a 61-year-old male with history of alcohol use disorder and no psychiatric history who presented to ED for medical clearance in order to pursue admission to detox facility. He reported suicidal ideation at time of arrival at ED and a psychiatric screening was ordered. He was intoxicated at the time with BAl of 458. Now that he is clinically sober, he is denying suicidal or homicidal ideation. There is no evidence of any severely unstable mood, anxiety or psychotic disorder in this patient at this time. The patient' s ongoing, severe alcohol use disorder is likely his greatest risk factor for self-harm. He is pursuing detox at this time which has been recommended today as well as in previous contacts with this provider. The patient is not interested in psychiatric hospitalization at this time, nor does he meet criteria for involuntary psychiatric hospitalization. Patient is psychiatrically clear for discharge. Orders Complete Blood Count With Diff (12/09/16 09:40) Comprehensive Metabolic Panel (12/09/16 09:40) Iv Access Insert/Monitor (12/09/16 09:40) Ecg Monitoring (12/09/16 09:40) Oximetry (12/09/16 09:40) Sodium Chloride 0.9% Flush (Ns Flush) (12/09/16 09:45) Alcohol (Ethanol) (12/09/16 09:40) C Diff Toxin Pcr (12/09/16 09:40) Psych Screen (12/09/16 09:49) Drug Screen, Random Urine (12/09/16 09:49) Alcohol Withdrawal Asmt-Ciwa ONCE (12/09/16 15:07) Flumazenil Inj (Romazicon Inj) (12/09/16 15:15) Lorazepam (Ativan) (12/09/16 15:15) Lorazepam Inj (Ativan Inj) (12/09/16 15:15) Lorazepam (Ativan) (12/09/16 15:15) Lorazepam Inj (Ativan Inj) (12/09/16 15:15) Lorazepam Inj (Ativan Inj) (12/09/16 15:15) Lorazepam Inj (Ativan Inj) (12/09/16 15:15) Results Vital Signs Date Time Temp Pulse Resp B/P Pulse Ox O2 Delivery O2 Flow Rate FiO2 12/09/16 15:21 62 18 100/64 96 Room Air 12/09/16 12:08 71 22 108/62 99 Room Air 12/09/16 09:44 84 15 144/79 95 Room Air 12/09/16 09:37 97.9 84 15 144/79 95 Laboratory Tests Test 12/09/16 09:50 White Blood Count 6.1 Red Blood Count 4.01 Hemoglobin 13.4 Hematocrit 39.4 Mean Corpuscular Volume 98.4 Mean Corpuscular Hemoglobin 33.4 Mean Corpuscular Hemoglobin 34.0 Concent Red Cell Distribution Width 14.3 Platelet Count 122 Mean Platelet Volume 6.3 Neutrophils (%) (Auto) 47.5 Lymphocytes (%) (Auto) 32.7 Monocytes (%) (Auto) 12.9 Eosinophils (%) (Auto) 5.5 Basophils (%) (Auto) 1.4 Neutrophils # (Auto) 2.9 Lymphocytes # (Auto) 2.0 Monocytes # (Auto) 0.8 Eosinophils # (Auto) 0.3 Basophils # (Auto) 0.1 CBC Comment DIFF FINAL Differential Comment Sodium Level 144 Potassium Level 3.9 Chloride Level 108 Carbon Dioxide Level 26.6 Anion Gap 9 Blood Urea Nitrogen 12 Creatinine 0.76 Estimat Glomerular Filtration 105 Rate Random Glucose 84 Calcium Level 8.2 Total Bilirubin 0.2 Aspartate Amino Transf 106 (AST/SGOT) Alanine Aminotransferase 69 (ALT/SGPT) Alkaline Phosphatase 97 Total Protein 7.8 Albumin 3.7 Ethyl Alcohol Level 458 Diagnosis Primary Impression: C. difficile colitis Additional Impression: Alcohol dependence with acute alcoholic intoxication Ruled Out: Suicidal ideation Psychiatrically Cleared: Yes Condition: Stable Problem Qualifiers Additional Impression: Alcohol dependence with acute alcoholic intoxication Qualified Code: F10.220 - Alcohol dependence with acute alcoholic intoxication , uncomplicated TaylorKasey Cassy Guo [facility] Dec 09, 2016 16:42
[2016-12-09 16:47] VITALS: BP 115/66; PULSE 74; RESP 18; O2SAT 97
== END 2016-12-09 17:50 | disposition home or self-care (01) ==
LOC: NEPD 09:27
DX: A04.7 Enterocolitis due to Clostridium difficile (principal); F10.220 Alcohol dependence with intoxication, uncomplicated; Y90.8 Blood alcohol level of 240 mg/100 ml or more
CPT/HCPCS: 80053; 80307; 85025; 99283

== ENCOUNTER 2016-12-12 08:53 | Emergency (ER) | payer OTHER ==
[~2016-12-12] VITALS: Ht 182.9 cm; Wt 76.0 kg
[~2016-12-12 08:53] MED LIST changes: -THERM PO
[2016-12-12 08:54] VITALS: BP 131/82; PULSE 97; RESP 15; TEMP 98.2; O2SAT 98
--- NOTE | 2016-12-12 09:41 | PD ---
HPI Chief Complaint: Suicide Ideation/Attempt Time Seen by Provider: 09:38 Travel History International Travel<30 days: No Contact w/Intl Traveler<30days: No Traveled to known affect area: No History of Present Illness HPI 61yo M with PMH of alcohol abuse and depression presents to the ED under [employer] for suicidal ideation. Pt states he drinks daily and last drank today. Has appointment with [facility] but they dont have room right now. States he was suicidal earlier and currently not. Does have access to a gun. Denies any trauma, fever, chest pain, sob, n/v, abdominal pain, focal weakness or numbness. PFSH Past Medical History Atrial Fibrillation: Yes Anxiety: Yes Depression: Yes Heart Rhythm Problems: No Cancer: No Cardiovascular Problems: No High Cholesterol: No Chest Pain: No Congestive Heart Failure: No Cerebrovascular Accident: No Diabetes: No Dialysis: No Diminished Hearing: No Endocrine: No Gastrointestinal Disorders: Yes (CDT colitis) GERD: No Genitourinary: No Hepatitis: Yes (HEP C) Hiatal Hernia: No Heparin Induced Thrombocytopen: No Hypertension: No Immune Disorder: No Implanted Vascular Access Dvce: No Kidney Stones: No Musculoskeletal: No Neurologic: No Psychiatric: No Reproductive: No Respiratory: No Immunizations Current: Yes Migraines: No Renal Failure: No Seizures: Yes (RELATED TO ALCOHOL WITHDRAW) Sickle Cell Disease: No Ulcer: No Tetanus Vaccination: < 5 Years Past Surgical History Abdominal Surgery: No AICD: No Arteriovenous Shunt: No Cardiac Surgery: No Ear Surgery: No Endocrine Surgery: No Eye Surgery: No Genitourinary Surgery: No Gynecologic Surgery: No Insulin Pump: No Joint Replacement: No Neurologic Surgery: No Oral Surgery: Yes Pacemaker: No Thoracic Surgery: No Other Surgery: Yes (UNKNOWN BACK SURGERY) Social History Alcohol Use: Yes (lots) Tobacco Use: No Substance Use: Yes (DRUGS (5 YEARS AGO) ) Allergies-Medications (Allergen,Severity, Reaction): Coded Allergies: Prozac (Unverified Allergy, Mild, Rash, 12/12/16) Penicillin (Verified Allergy, Unknown, 12/12/16) Reported Meds & Prescriptions Reported Meds & Active Scripts Active Review of Systems Except as stated in HPI: all other systems reviewed are Neg Physical Exam Narrative GENERAL: 61yo M not in distress. SKIN: Focused skin assessment warm/dry. HEAD: Atraumatic. Normocephalic. EYES: Pupils equal and round at 3mm bilaterally. No scleral icterus. No injection or drainage. ENT: No nasal bleeding or discharge. Mucous membranes pink and moist. NECK: Trachea midline. No JVD. CARDIOVASCULAR: Regular rate and rhythm. No murmur appreciated. RESPIRATORY: No accessory muscle use. Clear to auscultation. Breath sounds equal bilaterally. GASTROINTESTINAL: Abdomen soft, non-tender, nondistended. MUSCULOSKELETAL: No obvious deformities. No clubbing. No cyanosis. No edema. NEUROLOGICAL: Awake and alert. No obvious cranial nerve deficits. Motor grossly within normal limits. Normal speech. +AOB. Data Data Last Documented VS Vital Signs Date Time Temp Pulse Resp B/P Pulse Ox O2 Delivery O2 Flow Rate FiO2 12/12/16 16:37 66 16 80/ 99 Room Air 12/12/16 08:54 98.2 Orders Complete Blood Count With Diff (12/12/16 09:30) Comprehensive Metabolic Panel (12/12/16 09:30) Psych Screen (12/12/16 09:30) Drug Screen, Random Urine (12/12/16 09:30) Alcohol (Ethanol) (12/12/16 09:30) Salicylates (Aspirin) (12/12/16 09:30) Tylenol (Acetaminophen) (12/12/16 09:30) Diet Regular Basic (12/12/16 Dinner) Alcohol Withdrawal Asmt-Ciwa ONCE (12/12/16 17:16) Flumazenil Inj (Romazicon Inj) (12/12/16 17:30) Lorazepam (Ativan) (12/12/16 17:30) Lorazepam Inj (Ativan Inj) (12/12/16 17:30) Lorazepam (Ativan) (12/12/16 17:30) Lorazepam Inj (Ativan Inj) (12/12/16 17:30) Lorazepam Inj (Ativan Inj) (12/12/16 17:30) Lorazepam Inj (Ativan Inj) (12/12/16 17:30) Labs Laboratory Tests Test 12/12/16 12/12/16 09:45 09:50 White Blood Count 3.4 TH/MM3 Red Blood Count 3.97 MIL/MM3 Hemoglobin 13.3 GM/DL Hematocrit 39.3 % Mean Corpuscular Volume 99.1 FL Mean Corpuscular Hemoglobin 33.5 PG Mean Corpuscular Hemoglobin 33.8 % Concent Red Cell Distribution Width 13.9 % Platelet Count 90 TH/MM3 Mean Platelet Volume 5.8 FL Neutrophils (%) (Auto) 59.9 % Lymphocytes (%) (Auto) 20.5 % Monocytes (%) (Auto) 16.9 % Eosinophils (%) (Auto) 1.3 % Basophils (%) (Auto) 1.4 % Neutrophils # (Auto) 2.0 TH/MM3 Lymphocytes # (Auto) 0.7 TH/MM3 Monocytes # (Auto) 0.6 TH/MM3 Eosinophils # (Auto) 0.0 TH/MM3 Basophils # (Auto) 0.0 TH/MM3 CBC Comment AUTO DIFF Differential Comment AUTO DIFF CONFIRMED Platelet Estimate LOW Platelet Morphology Comment NORMAL Red Cell Morphology Comment NORMAL Sodium Level 147 MEQ/L Potassium Level 3.8 MEQ/L Chloride Level 113 MEQ/L Carbon Dioxide Level 25.9 MEQ/L Anion Gap 8 MEQ/L Blood Urea Nitrogen 9 MG/DL Creatinine 0.73 MG/DL Estimat Glomerular Filtration 110 ML/MIN Rate Random Glucose 95 MG/DL Calcium Level 8.0 MG/DL Total Bilirubin 0.4 MG/DL Aspartate Amino Transf 201 U/L (AST/SGOT) Alanine Aminotransferase 128 U/L (ALT/SGPT) Alkaline Phosphatase 62 U/L Total Protein 7.2 GM/DL Albumin 3.5 GM/DL Salicylates Level LESS THAN 1.7 MG/DL Acetaminophen Level LESS THAN 2.0 MCG/ML Ethyl Alcohol Level 416 MG/DL Urine Opiates Screen NEG Urine Barbiturates Screen NEG Urine Amphetamines Screen NEG Urine Benzodiazepines Screen POS Urine Cocaine Screen NEG Urine Cannabinoids Screen NEG MDM Medical Decision Making Medical Screen Exam Complete: Yes Emergency Medical Condition: Yes Differential Diagnosis alcohol abuse vs. depression vs. suicidal ideation Narrative Course 61yo M under [employer] for suicidal ideation. Labs reviewed, WBC low at 3.4. Thrombocytopenic at 90,000. Elevated AST/ALT. No abdominal pain. Likely secondary to chronic alcohol use. Acetaminophen and salicylate level negative. Positive benzodiazepine. Pt is medically clear for psych evaluation. We were not able to find the [employer] Act form so I printed one out and Bhavik Acted the patient. Diagnosis Primary Impression: Alcohol abuse Scripts No Active Prescriptions or Reported Meds Nimo Wayne DO Dec 12, 2016 09:41
[2016-12-12 10:04] LABS: BASOPHIL % 1.4 % (0.0-2.0); EOSINOPHIL % 1.3 % (0.0-4.0); HEMATOCRIT 39.3 % (39.0-51.0); LYMPH % 20.5 % (9.0-44.0); LYMPHOCYTE # 0.7 TH/MM3 (1.0-4.8); MEAN CELL VOLUME 99.1 FL (80.0-100.0); MEAN CORPUSCULAR HEMOGLOBIN 33.5 PG (27.0-34.0); MEAN CORPUSCULAR HGB CONC 33.8 % (32.0-36.0); MONO % 16.9 % (0.0-8.0); NEUT % 59.9 % (16.0-70.0); PLATELET COUNT 90 TH/MM3 (150-450); RED BLOOD COUNT 3.97 MIL/MM3 (4.50-5.90); RED CELL DISTRIBUTION WIDTH 13.9 % (11.6-17.2); WHITE BLOOD COUNT 3.4 TH/MM3 (4.0-11.0)
[2016-12-12 10:13] LABS: HEMO FLAGS AUTO DIFF
[2016-12-12 10:26] LABS: AMPHETAMINE, URINE NEG (NEG); BARBITURATES, URINE NEG (NEG); COCAINE, URINE NEG (NEG)
[2016-12-12 10:50] LABS: PLATELET ESTIMATE SMEAR LOW (NORMAL); PLATELET MORPHOLOGY NORMAL (NORMAL)
[2016-12-12 10:51] LABS: SCAN/DIFF AUTO DIFF CONFIRMED
[2016-12-12 11:25] VITALS: BP 130/78; PULSE 87; RESP 16; O2SAT 96
[2016-12-12 12:13] LABS: ACETAMINOPHEN LESS THAN 2.0 MCG/ML (10.0-30.0); ANION GAP 8 MEQ/L (5-15); AST (GOT) 201 U/L (15-37); BICARBONATE 25.9 MEQ/L (21.0-32.0); BLOOD UREA NITROGEN 9 MG/DL (7-18); CHLORIDE 113 MEQ/L (98-107); GLOMERULAR FILTRATION RATE 110 ML/MIN (>89); POTASSIUM 3.8 MEQ/L (3.5-5.1); SODIUM (NA) 147 MEQ/L (136-145)
[2016-12-12 12:16] LABS: ALKALINE PHOSPHATASE 62 U/L (45-117); ALT (GPT) 128 U/L (12-78); TOTAL BILIRUBIN ADULT 0.4 MG/DL (0.2-1.0)
[2016-12-12 16:37] VITALS: BP_SYST 80; PULSE 66; RESP 16; O2SAT 99
[2016-12-12] MEDS ORDERED: FLUMAZENIL 0.5 MG/5 ML VIAL IV PUSH PRN (17:30)
[2016-12-12] MEDS ORDERED: LORazepam 2 MG/ML VIAL IV PUSH PRN ×4 (17:30)
[2016-12-12] MEDS ORDERED: LORazepam 1 MG TAB PO PRN (17:30)
[2016-12-12] MEDS ORDERED: LORazepam 2 MG TAB PO PRN (17:30)
[2016-12-12 20:27] VITALS: BP 167/94; PULSE 78; RESP 18; O2SAT 97
[2016-12-12 22:14] VITALS: BP 144/74; PULSE 90; RESP 18; O2SAT 97
== END 2016-12-13 01:50 ==
LOC: NEPD 08:53 → NEPJ 12-13 01:50
DX: F10.10 Alcohol abuse, uncomplicated (principal); R45.851 Suicidal ideations; D69.6 Thrombocytopenia, unspecified; I48.91 Unspecified atrial fibrillation; F41.9 Anxiety disorder, unspecified; F32.9 Major depressive disorder, single episode, unspecified; B19.20 Unspecified viral hepatitis C without hepatic coma; Z88.0 Allergy status to penicillin; Z88.8 Allergy status to other drugs, medicaments and biological substances
CPT/HCPCS: 80053; 80307; 85025; 99283

== ENCOUNTER 2016-12-18 11:41 | Emergency (ER) | payer OTHER ==
[~2016-12-18] VITALS: Ht 182.9 cm; Wt 75.0 kg
[2016-12-18 11:45] VITALS: BP 135/84; PULSE 84; RESP 16; TEMP 98.2; O2SAT 98
--- NOTE | 2016-12-18 11:58 | PD ---
Physical Exam Time Seen by Provider: 11:58 Narrative 61 y/o male alcoholic here with n/v, diarrhea, feels that he is withdrawing. He drank some alcohol this morning "to stop the shakes." Vital signs reviewed. Seen at triage desk. Awaiting bed placement. Data Data Last Documented VS Vital Signs Date Time Temp Pulse Resp B/P Pulse Ox O2 Delivery O2 Flow Rate FiO2 12/18/16 11:45 98.2 84 16 135/84 98 MDM Medical Record Reviewed: Yes Supervised Visit with DIANNE: No Scripts No Active Prescriptions or Reported Meds Jde Pires Dec 18, 2016 11:58
--- NOTE | 2016-12-18 12:15 | PD ---
HPI Chief Complaint: Alcohol/Drug Intoxication Time Seen by Provider: 12:11 Travel History International Travel<30 days: No Contact w/Intl Traveler<30days: No Traveled to known affect area: No History of Present Illness HPI 61-year-old male with history of alcohol abuse presents the emergency department with chief complaint of nausea, vomiting, diarrhea and the shakes after attempting to withdraw himself. He reports he drinks at least a fifth of vodka daily. He attempted to stop drinking yesterday evening but his symptoms became so severe that he drank a pint of vodka at 7 AM. He now feels jittery and is requesting treatment for withdrawal. He reports he contacted [facility] and they do not have a bed. Past medical history significant for hepatitis C. Patient denies chest pain, shortness of breath, abdominal pain. PFSH Past Medical History Atrial Fibrillation: Yes Anxiety: Yes Depression: Yes Heart Rhythm Problems: No Cancer: No Cardiovascular Problems: No High Cholesterol: No Chest Pain: No Congestive Heart Failure: No Cerebrovascular Accident: No Diabetes: No Dialysis: No Diminished Hearing: No Endocrine: No Gastrointestinal Disorders: Yes (CDT colitis) GERD: No Genitourinary: No Hepatitis: Yes (HEP C) Hiatal Hernia: No Heparin Induced Thrombocytopen: No Hypertension: No Immune Disorder: No Implanted Vascular Access Dvce: No Kidney Stones: No Musculoskeletal: No Neurologic: No Psychiatric: No Reproductive: No Respiratory: No Immunizations Current: Yes Migraines: No Renal Failure: No Seizures: Yes (RELATED TO ALCOHOL WITHDRAW) Sickle Cell Disease: No Ulcer: No Past Surgical History Abdominal Surgery: No AICD: No Arteriovenous Shunt: No Cardiac Surgery: No Ear Surgery: No Endocrine Surgery: No Eye Surgery: No Genitourinary Surgery: No Gynecologic Surgery: No Insulin Pump: No Joint Replacement: No Neurologic Surgery: No Oral Surgery: Yes Pacemaker: No Thoracic Surgery: No Other Surgery: Yes (UNKNOWN BACK SURGERY) Social History Alcohol Use: Yes (lots) Tobacco Use: No Substance Use: Yes (DRUGS (5 YEARS AGO) ) Allergies-Medications (Allergen,Severity, Reaction): Coded Allergies: Prozac (Unverified Allergy, Mild, Rash, 12/12/16) Penicillin (Verified Allergy, Unknown, 12/12/16) Reported Meds & Prescriptions Reported Meds & Active Scripts Active Review of Systems Except as stated in HPI: all other systems reviewed are Neg General / Constitutional: No: Fever Eyes: No: Visual changes HENT: No: Headaches Cardiovascular: No: Chest Pain or Discomfort Respiratory: No: Shortness of Breath Gastrointestinal: Positive: Nausea, Vomiting Genitourinary: No: Dysuria Musculoskeletal: No: Pain Skin: No Rash Physical Exam Narrative GENERAL: Alert disheveled appearing male. SKIN: Focused skin assessment warm/dry. HEAD: Normocephalic. EYES: No scleral icterus. No injection or drainage. NECK: Supple, trachea midline. No JVD or lymphadenopathy. CARDIOVASCULAR: Regular rate and rhythm without murmurs, gallops, or rubs. RESPIRATORY: Breath sounds equal bilaterally. No accessory muscle use. GASTROINTESTINAL: Abdomen soft, non-tender, nondistended. MUSCULOSKELETAL: No cyanosis, or edema. Non-tremulous. BACK: Nontender without obvious deformity. No CVA tenderness. Data Data Last Documented VS Vital Signs Date Time Temp Pulse Resp B/P Pulse Ox O2 Delivery O2 Flow Rate FiO2 12/18/16 11:45 98.2 84 16 135/84 98 MDM Medical Decision Making Medical Screen Exam Complete: Yes Emergency Medical Condition: Yes Differential Diagnosis Alcohol abuse, alcohol withdrawal Narrative Course 61-year-old male with history of alcohol abuse presents emergency department requesting treatment for alcohol withdrawal. Patient reports he contacted [facility] morning and they do not have a bed before he presents here. He reports his last drink was approximately 7 AM when he drank a pint of vodka. He does not appear overtly intoxicated. He is alert and oriented with a steady gait. He is not tremulous. 1405 patient resting comfortably in bed. He is non-tremulous. He is reporting mild nausea. He will be given Zofran and discharged home. He was given instructions to follow-up with [facility]. Patient verbalizes understanding and agrees to plan Diagnosis Primary Impression: Alcohol abuse Referrals: [facility] Additional Instructions: Follow-up the [facility] for bed placement. Scripts No Active Prescriptions or Reported Meds Disposition: DISCHARGE HOME Condition: Stable Michaela Smith Dec 18, 2016 12:15
[2016-12-18] MEDS ORDERED: ONDANSETRON ODT 4 MG TAB PO ONE (14:15)
[2016-12-18 14:30] VITALS: BP 108/58; PULSE 70; RESP 18; O2SAT 100
== END 2016-12-18 15:06 | disposition home or self-care (01) ==
LOC: NEPD 11:41
DX: F10.10 Alcohol abuse, uncomplicated (principal); R11.0 Nausea; R19.7 Diarrhea, unspecified; Z86.19 Personal history of other infectious and parasitic diseases; Z86.79 Personal history of other diseases of the circulatory system; Z86.59 Personal history of other mental and behavioral disorders; Z87.19 Personal history of other diseases of the digestive system
CPT/HCPCS: 99283

== ENCOUNTER 2016-12-23 20:38 | Emergency (ER) | payer OTHER ==
[~2016-12-23] VITALS: Ht 182.9 cm; Wt 74.0 kg
[2016-12-23] MEDS ORDERED: SODIUM CHLOR 0.9% 1000 ML INJ 1,000 ML IV ONE ×2 (21:07→23:00)
[2016-12-23 21:12] VITALS: BP 145/82; PULSE 100; RESP 17; TEMP 99.1; O2SAT 98
[2016-12-23] MEDS ORDERED: LIDOCAINE VISCOUS 2% SOLN 15 ML UDC PO ONE (21:15)
[2016-12-23] MEDS ORDERED: SODIUM CHLORIDE 0.9% FLUSH 10 ML FLUSH IVF PRN (21:15)
[2016-12-23] MEDS ORDERED: ONDANSETRON HCL 4 MG/2 ML VIAL IV PUSH ONE (21:15)
[2016-12-23] MEDS ORDERED: ALUMINUM/MAGNESIUM/SIMETH 30 ML CUP PO ONE (21:15)
[2016-12-23] MEDS ORDERED: PANTOPRAZOLE SODIUM 40 MG VIAL IVP ONE (21:15)
[2016-12-23] MEDS ORDERED: THIAMINE HCL 100 MG TAB PO ONE (21:15)
--- NOTE | 2016-12-23 21:28 | PD ---
HPI Chief Complaint: GI Complaint Time Seen by Provider: 21:06 Travel History International Travel<30 days: No Contact w/Intl Traveler<30days: No Traveled to known affect area: No History of Present Illness HPI PATIENT BROUGHT IN BY [employer] PD A [employer], PATIENT WAS FOUND INTOXICATED AND LAYING ON HIS OWN EMESIS AND FECES. PFSH Past Medical History Atrial Fibrillation: Yes Anxiety: Yes Depression: Yes Heart Rhythm Problems: No Cancer: No Cardiovascular Problems: No High Cholesterol: No Chest Pain: No Congestive Heart Failure: No Cerebrovascular Accident: No Diabetes: No Dialysis: No Diminished Hearing: No Endocrine: No Gastrointestinal Disorders: Yes (CDT colitis) GERD: No Genitourinary: No Hepatitis: Yes (HEP C) Hiatal Hernia: No Heparin Induced Thrombocytopen: No Hypertension: No Immune Disorder: No Implanted Vascular Access Dvce: No Kidney Stones: No Musculoskeletal: No Neurologic: No Psychiatric: No Reproductive: No Respiratory: No Immunizations Current: Yes Migraines: No Renal Failure: No Seizures: Yes (RELATED TO ALCOHOL WITHDRAW) Sickle Cell Disease: No Ulcer: No Past Surgical History Abdominal Surgery: No AICD: No Arteriovenous Shunt: No Cardiac Surgery: No Ear Surgery: No Endocrine Surgery: No Eye Surgery: No Genitourinary Surgery: No Gynecologic Surgery: No Insulin Pump: No Joint Replacement: No Neurologic Surgery: No Oral Surgery: Yes Pacemaker: No Thoracic Surgery: No Other Surgery: Yes (UNKNOWN BACK SURGERY) Social History Alcohol Use: Yes (vodka pt states "enough to get me there") Tobacco Use: No Substance Use: No (denies) Allergies-Medications (Allergen,Severity, Reaction): Coded Allergies: Prozac (Unverified Allergy, Mild, Rash, 12/24/16) Penicillin (Verified Allergy, Unknown, 12/24/16) Reported Meds & Prescriptions Reported Meds & Active Scripts Active No Active Prescriptions or Reported Medications Review of Systems ROS Limitations: Intoxication Except as stated in HPI: all other systems reviewed are Neg Physical Exam Exam Limitations: Intoxication Narrative GENERAL: SKIN: Warm and dry. HEAD: Atraumatic. Normocephalic. EYES: Pupils equal and round. No scleral icterus. No injection or drainage. ENT: No nasal bleeding or discharge. Mucous membranes pink and moist. NECK: Trachea midline. No JVD. CARDIOVASCULAR: Regular rate and rhythm. RESPIRATORY: No accessory muscle use. Clear to auscultation. Breath sounds equal bilaterally. GASTROINTESTINAL: Abdomen soft, non-tender, nondistended. Hepatic and splenic margins not palpable. MUSCULOSKELETAL: Extremities without clubbing, cyanosis, or edema. No obvious deformities. NEUROLOGICAL: Awake and alert. No obvious cranial nerve deficits. ABLE TO MOVE ALL 4 EXTREMITIES PSYCHIATRIC: UNABLE TO ASSESS Data Data Last Documented VS Vital Signs Date Time Temp Pulse Resp B/P Pulse Ox O2 Delivery O2 Flow Rate FiO2 12/24/16 08:57 98.9 81 20 127/60 96 Room Air Orders Basic Metabolic Panel (Bmp) (12/23/16 21:07) Complete Blood Count With Diff (12/23/16 21:07) Prothrombin Time / Inr (Pt) (12/23/16 21:07) Act Partial Throm Time (Ptt) (12/23/16 21:07) Blood Glucose (12/23/16 21:07) Iv Access Insert/Monitor (12/23/16 21:07) Ecg Monitoring (12/23/16 21:07) Oximetry (12/23/16 21:07) Sodium Chloride 0.9% Flush (Ns Flush) (12/23/16 21:15) Sodium Chlor 0.9% 1000 Ml Inj (Ns 1000 M (12/23/16 21:07) Alcohol (Ethanol) (12/23/16 21:07) Thiamine (Vit B1) (Vitamin B1) (12/23/16 21:15) Pantoprazole Inj (Protonix Inj) (12/23/16 21:15) Al-Mag Hy-Si 40-40-4 Mg/Ml Liq (Mag-Al P (12/23/16 21:15) Lidocaine 2% Viscous (Xylocaine 2% Visco (12/23/16 21:15) Ondansetron Inj (Zofran Inj) (12/23/16 21:15) Calcium Gluconate Inj (Calcium Gluconate (12/23/16 23:00) Sodium Chlor 0.9% 1000 Ml Inj (Ns 1000 M (12/23/16 23:00) Arterial Blood Gas (Abg) (12/23/16 22:56) Sodium Chlor 0.9% 1000 Ml Inj (Ns 1000 M (12/24/16 00:00) Lorazepam Inj (Ativan Inj) (12/24/16 05:45) Diet Regular Basic (12/24/16 Breakfast) Lorazepam Inj (Ativan Inj) (12/24/16 08:45) Chlordiazepoxide (Librium) (12/24/16 08:45) Labs Laboratory Tests Test 12/23/16 12/23/16 21:30 23:10 White Blood Count 10.0 TH/MM3 Red Blood Count 4.45 MIL/MM3 Hemoglobin 14.7 GM/DL Hematocrit 44.9 % Mean Corpuscular Volume 100.9 FL Mean Corpuscular Hemoglobin 33.1 PG Mean Corpuscular Hemoglobin 32.8 % Concent Red Cell Distribution Width 14.7 % Platelet Count 164 TH/MM3 Mean Platelet Volume 6.3 FL Neutrophils (%) (Auto) 91.7 % Lymphocytes (%) (Auto) 2.4 % Monocytes (%) (Auto) 5.6 % Eosinophils (%) (Auto) 0.0 % Basophils (%) (Auto) 0.3 % Neutrophils # (Auto) 9.1 TH/MM3 Lymphocytes # (Auto) 0.2 TH/MM3 Monocytes # (Auto) 0.6 TH/MM3 Eosinophils # (Auto) 0.0 TH/MM3 Basophils # (Auto) 0.0 TH/MM3 CBC Comment DIFF FINAL Differential Comment Prothrombin Time 11.3 SEC Prothromb Time International 1.0 RATIO Ratio Activated Partial 24.9 SEC Thromboplast Time Sodium Level 146 MEQ/L Potassium Level 4.0 MEQ/L Chloride Level 107 MEQ/L Carbon Dioxide Level 18.9 MEQ/L Anion Gap 20 MEQ/L Blood Urea Nitrogen 6 MG/DL Creatinine 1.14 MG/DL Estimat Glomerular Filtration 66 ML/MIN Rate Random Glucose 229 MG/DL Calcium Level 7.5 MG/DL Ethyl Alcohol Level 315 MG/DL Blood Gas Puncture Site RT RADIAL Blood Gas Patient Temperature 98.6 Blood Gas HCO3 17 mmol/L Blood Gas Base Excess -6.4 mmol/L Blood Gas Oxygen Saturation 94 % Arterial Blood pH 7.41 Arterial Blood Partial 28 mmHg Pressure CO2 Arterial Blood Partial 93 mmHG Pressure O2 Arterial Blood Oxygen Content 17.1 Vol % Arterial Blood 1.6 % Carboxyhemoglobin Arterial Blood Methemoglobin 1.0 % Blood Gas Hemoglobin 12.8 G/DL Oxygen Delivery Device ROOM AIR Blood Gas Inspired Oxygen 21 % MDM Medical Decision Making Medical Screen Exam Complete: Yes Emergency Medical Condition: Yes Medical Record Reviewed: Yes Differential Diagnosis ELECTROLYTE ABNL V DEHYDRATION V INTOXICATION Narrative Course during patient evaluation, found to be in mild compensated AKA for which patient was hydrated with 2l ns and 3rd liter going at 250cc/h, thiamine po given, po challenge given as well which was tolerated well. patient is otherwise stable and will be medically clerared Diagnosis Primary Impression: Alcohol dependence with acute alcoholic intoxication Qualified Code: F10.220 - Alcohol dependence with acute alcoholic intoxication without complication Additional Impression: COMPENSATED ALCOHOLIC KETOACIDOSIS Scripts No Active Prescriptions or Reported Meds Pablo Rush MD Dec 23, 2016 21:28
[2016-12-23 21:52] VITALS: O2SAT 98
[2016-12-23 22:14] LABS: AUTOMATED NEUTROPHIL # 9.1 TH/MM3 (1.8-7.7); BASOPHIL % 0.3 % (0.0-2.0); HEMATOCRIT 44.9 % (39.0-51.0); HEMO FLAGS DIFF FINAL; LYMPH % 2.4 % (9.0-44.0); LYMPHOCYTE # 0.2 TH/MM3 (1.0-4.8); MEAN CELL VOLUME 100.9 FL (80.0-100.0); MEAN CORPUSCULAR HEMOGLOBIN 33.1 PG (27.0-34.0); MEAN CORPUSCULAR HGB CONC 32.8 % (32.0-36.0); MONO % 5.6 % (0.0-8.0); NEUT % 91.7 % (16.0-70.0); PLATELET COUNT 164 TH/MM3 (150-450); RED BLOOD COUNT 4.45 MIL/MM3 (4.50-5.90); RED CELL DISTRIBUTION WIDTH 14.7 % (11.6-17.2)
[2016-12-23 22:21] LABS: APTT (PATIENT) 24.9 SEC (24.3-30.1); PROTHROMBIN TIME - PATIENT 11.3 SEC (9.8-11.6)
[2016-12-23 22:32] LABS: BICARBONATE 18.9 MEQ/L (21.0-32.0)
[2016-12-23] MEDS ORDERED: CALCIUM GLUCONATE INJ 1 GM in DEXTROSE 5% IN WATER 100ML INJ 100 ML IV ONE ×2 (23:00)
[2016-12-23 23:17] LABS: BLOOD GAS BASE EXCESS -6.4 mmol/L (-2-2); BLOOD GAS CARBOXYHEMOGLOBIN 1.6 % (0-4); BLOOD GAS HCO3 17 mmol/L (22-26); BLOOD GAS O2 HGB SATURATION 94 % (90-100); BLOOD GAS OXYGEN CONTENT 17.1 Vol % (12.0-20.0); BLOOD GAS PCO2 28 mmHg (38-42); BLOOD GAS PO2 93 mmHG (61-120); BLOOD GAS TOTAL HGB 12.8 G/DL (12.0-16.0); CRITICAL VALUE NO; DRAW SITE RT RADIAL; FIO2 21 %; NUMBER OF ARTERIAL PUNCTURES 1; OXYGEN DEVICE ROOM AIR; STAT YES; TEMP CORR TO 98.6; ULNAR PULSE PRESENT
[2016-12-24] MEDS ORDERED: SODIUM CHLOR 0.9% 1000 ML INJ 1,000 ML IV ONE
[2016-12-24] MEDS ORDERED: LORazepam 2 MG/ML VIAL IV PUSH ONE ×2 (05:45→08:45)
[2016-12-24 06:44] VITALS: BP 129/73; PULSE 89; RESP 18; O2SAT 96
[2016-12-24] MEDS ORDERED: chlordiazePOXIDE 25 MG CAP PO ONE (08:45)
--- NOTE | 2016-12-24 08:47 | PD ---
Physical Exam Date Seen by Provider: Dec 24, 2016 Time Seen by Provider: 08:46 Narrative Asked by the nurse to evaluate the patient for his "shakes". Patient is having tremors. He was given lorazepam 1 mg at 0545 hours. He denies pain, chills, or fever. Patient is here as a [employer] for acute alcoholic intoxication. He is allergic to penicillin and Prozac. Data Data Last Documented VS Vital Signs Date Time Temp Pulse Resp B/P Pulse Ox O2 Delivery O2 Flow Rate FiO2 12/24/16 08:57 98.9 81 20 127/60 96 Room Air Orders Basic Metabolic Panel (Bmp) (12/23/16 21:07) Complete Blood Count With Diff (12/23/16 21:07) Prothrombin Time / Inr (Pt) (12/23/16 21:07) Act Partial Throm Time (Ptt) (12/23/16 21:07) Blood Glucose (12/23/16 21:07) Iv Access Insert/Monitor (12/23/16 21:07) Ecg Monitoring (12/23/16 21:07) Oximetry (12/23/16 21:07) Sodium Chloride 0.9% Flush (Ns Flush) (12/23/16 21:15) Sodium Chlor 0.9% 1000 Ml Inj (Ns 1000 M (12/23/16 21:07) Alcohol (Ethanol) (12/23/16 21:07) Thiamine (Vit B1) (Vitamin B1) (12/23/16 21:15) Pantoprazole Inj (Protonix Inj) (12/23/16 21:15) Al-Mag Hy-Si 40-40-4 Mg/Ml Liq (Mag-Al P (12/23/16 21:15) Lidocaine 2% Viscous (Xylocaine 2% Visco (12/23/16 21:15) Ondansetron Inj (Zofran Inj) (12/23/16 21:15) Calcium Gluconate Inj (Calcium Gluconate (12/23/16 23:00) Sodium Chlor 0.9% 1000 Ml Inj (Ns 1000 M (12/23/16 23:00) Arterial Blood Gas (Abg) (12/23/16 22:56) Sodium Chlor 0.9% 1000 Ml Inj (Ns 1000 M (12/24/16 00:00) Lorazepam Inj (Ativan Inj) (12/24/16 05:45) Diet Regular Basic (12/24/16 Breakfast) Lorazepam Inj (Ativan Inj) (12/24/16 08:45) Chlordiazepoxide (Librium) (12/24/16 08:45) Labs MDM Medical Record Reviewed: Yes Supervised Visit with DIANNE: Yes Narrative Course Patient is given 2 mg lorazepam IV. Patient is also given Librium 25 mg by mouth. Diagnosis Primary Impression: Alcohol dependence with acute alcoholic intoxication Qualified Code: F10.220 - Alcohol dependence with acute alcoholic intoxication without complication Additional Impression: COMPENSATED ALCOHOLIC KETOACIDOSIS Scripts No Active Prescriptions or Reported Meds Condition: Stable Dion Packer Dec 24, 2016 08:47 Mean Corpuscular Hemoglobin 32.8 % Concent Red Cell Distribution Width 14.7 % Platelet Count 164 TH/MM3 Mean Platelet Volume 6.3 FL Neutrophils (%) (Auto) 91.7 % Lymphocytes (%) (Auto) 2.4 % Monocytes (%) (Auto) 5.6 % Eosinophils (%) (Auto) 0.0 % Basophils (%) (Auto) 0.3 % Neutrophils # (Auto) 9.1 TH/MM3 Lymphocytes # (Auto) 0.2 TH/MM3 Monocytes # (Auto) 0.6 TH/MM3 Eosinophils # (Auto) 0.0 TH/MM3 Basophils # (Auto) 0.0 TH/MM3 CBC Comment DIFF FINAL Differential Comment Prothrombin Time 11.3 SEC Prothromb Time International 1.0 RATIO Ratio Activated Partial 24.9 SEC Thromboplast Time Sodium Level 146 MEQ/L Potassium Level 4.0 MEQ/L Chloride Level 107 MEQ/L Carbon Dioxide Level 18.9 MEQ/L Anion Gap 20 MEQ/L Blood Urea Nitrogen 6 MG/DL Creatinine 1.14 MG/DL Estimat Glomerular Filtration 66 ML/MIN Rate Random Glucose 229 MG/DL Calcium Level 7.5 MG/DL Ethyl Alcohol Level 315 MG/DL Blood Gas Puncture Site RT RADIAL Blood Gas Patient Temperature 98.6 Blood Gas HCO3 17 mmol/L Blood Gas Base Excess -6.4 mmol/L Blood Gas Oxygen Saturation 94 % Arterial Blood pH 7.41 Arterial Blood Partial 28 mmHg Pressure CO2 Arterial Blood Partial 93 mmHG Pressure O2 Arterial Blood Oxygen Content 17.1 Vol % Arterial Blood 1.6 % Carboxyhemoglobin Arterial Blood Methemoglobin 1.0 % Blood Gas Hemoglobin 12.8 G/DL Oxygen Delivery Device ROOM AIR Blood Gas Inspired Oxygen 21 % [facility] Medical Record Reviewed: Yes Supervised Visit with DIANNE: Yes Narrative Course Patient is given 2 mg lorazepam IV. Patient is also given Librium 25 mg by mouth. Diagnosis Primary Impression: Alcohol dependence with acute alcoholic intoxication Qualified Code: F10.220 - Alcohol dependence with acute alcoholic intoxication without complication Additional Impression: COMPENSATED ALCOHOLIC KETOACIDOSIS Scripts No Active Prescriptions or Reported Meds Condition: Stable Dion Packer Dec 24, 2016 08:47
[2016-12-24 08:57] VITALS: BP 127/60; PULSE 81; RESP 20; TEMP 98.9; O2SAT 96
== END 2016-12-24 10:17 | disposition home or self-care (01) ==
LOC: NEPD 20:38
DX: Z02.89 Encounter for other administrative examinations (principal); F10.220 Alcohol dependence with intoxication, uncomplicated; E87.2 Acidosis; E86.0 Dehydration
CPT/HCPCS: 36600; 80048; 80307; 82805; 85025; 85610; 85730; 96361; 96365; 96366; 96375; 96376; 99284; C9113; J0610; J2060; J2405; J7030

== ENCOUNTER 2016-12-24 17:33 | Emergency (ER) | payer SELFPAY ==
[~2016-12-24] VITALS: Ht 182.9 cm; Wt 80.0 kg
[2016-12-24 17:41] VITALS: BP 136/82; PULSE 80; RESP 15; TEMP 98.2; O2SAT 98
--- NOTE | 2016-12-24 18:05 | PD ---
HPI . alcohol intoxication Chief Complaint: Medical Clearance Time Seen by Provider: 18:05 Travel History International Travel<30 days: No Contact w/Intl Traveler<30days: No Traveled to known affect area: No History of Present Illness HPI 61 yr old male well known to the ER here c/o of withdrawals. He says, "I'm gonna shake off the planet." He has no other complaints. He denies any suicidal or homicidal ideation. I asked him repeatedly if he had any abnormal thoughts and he denies such ideations. PFSH Past Medical History Atrial Fibrillation: Yes Anxiety: Yes Depression: Yes Heart Rhythm Problems: No Cancer: No Cardiovascular Problems: No High Cholesterol: No Chest Pain: No Congestive Heart Failure: No Cerebrovascular Accident: No Diabetes: No Dialysis: No Diminished Hearing: No Endocrine: No Gastrointestinal Disorders: Yes (CDT colitis) GERD: No Genitourinary: No Hepatitis: Yes (HEP C) Hiatal Hernia: No Heparin Induced Thrombocytopen: No Hypertension: No Immune Disorder: No Implanted Vascular Access Dvce: No Kidney Stones: No Musculoskeletal: No Neurologic: No Psychiatric: No Reproductive: No Respiratory: No Immunizations Current: Yes Migraines: No Renal Failure: No Seizures: Yes (RELATED TO ALCOHOL WITHDRAW) Sickle Cell Disease: No Ulcer: No Past Surgical History Abdominal Surgery: No AICD: No Arteriovenous Shunt: No Cardiac Surgery: No Ear Surgery: No Endocrine Surgery: No Eye Surgery: No Genitourinary Surgery: No Gynecologic Surgery: No Insulin Pump: No Joint Replacement: No Neurologic Surgery: No Oral Surgery: Yes Pacemaker: No Thoracic Surgery: No Other Surgery: Yes (UNKNOWN BACK SURGERY) Social History Alcohol Use: Yes (vodka pt states "enough to get me there") Tobacco Use: No Substance Use: No (denies) Allergies-Medications (Allergen,Severity, Reaction): Coded Allergies: Prozac (Unverified Allergy, Mild, Rash, 12/24/16) Penicillin (Verified Allergy, Unknown, 12/24/16) Reported Meds & Prescriptions Reported Meds & Active Scripts Active No Active Prescriptions or Reported Medications Review of Systems General / Constitutional: No: Fever Eyes: No: Visual changes HENT: No: Headaches Cardiovascular: No: Chest Pain or Discomfort Respiratory: No: Shortness of Breath Gastrointestinal: No: Abdominal Pain Genitourinary: No: Dysuria Musculoskeletal: No: Pain Skin: No Rash Neurologic: No: Weakness Psychiatric: No: Depression Endocrine: No: Polydipsia Hematologic/Lymphatic: No: Easy Bruising Physical Exam Narrative GENERAL: AAO x 3, disheveled, in no distress SKIN: Warm and dry. No visible rashes or bruising. HEAD: Normocephalic and atraumatic. EYES: No scleral icterus. No injection or drainage. EOM intact, PERRLA ENT: No nasal drainage noted. Mucous membranes pink. Airway patent. NECK: Supple, trachea midline. No JVD. CARDIOVASCULAR: Regular rate and rhythm without murmurs, gallops, or rubs. RESPIRATORY: Breath sounds equal bilaterally. No accessory muscle use. No rhonchi or rales. GASTROINTESTINAL: Abdomen soft, non-tender, nondistended. EXTREMITIES: No cyanosis or edema. BACK: No deformity. No CVA tenderness. NEURO: CN II-12 intact, cognos tm1 developer strength normal b/l, UE and LE 5/5, no focal deficits, no tremors present PSYCH: AAO x 3, normal affect. Data Data Last Documented VS Vital Signs Date Time Temp Pulse Resp B/P Pulse Ox O2 Delivery O2 Flow Rate FiO2 12/24/16 18:13 88 18 12/24/16 17:41 98.2 136/82 98 Orders Alcohol (Ethanol) (12/24/16 18:09) Labs Laboratory Tests Test 12/24/16 18:17 Ethyl Alcohol Level 289 MG/DL [facility] Medical Decision Making Medical Screen Exam Complete: Yes Emergency Medical Condition: Yes Medical Record Reviewed: Yes Differential Diagnosis alcohol intoxication, less likely withdrawals, alcohol abuse Narrative Course 61-year-old male here with complaints of alcohol intoxication and withdrawal. His examination is unremarkable. He has no evidence of withdrawals. He does not have tremors. Alcohol level has been ordered. Patient will likely be cleared for discharge once he jadon up. Laboratory Tests Test 12/24/16 18:17 Ethyl Alcohol Level 289 MG/DL Patient will sleep it off until sober enough to ambulate out of ED. Diagnosis Primary Impression: Alcohol abuse with intoxication Scripts No Active Prescriptions or Reported Meds Condition: Stable Victorina Marie Dec 24, 2016 18:05
[2016-12-25 04:21] VITALS: BP 146/80; TEMP 98.2
== END 2016-12-25 04:21 | disposition home or self-care (01) ==
LOC: NEDAMB 17:33
DX: F10.129 Alcohol abuse with intoxication, unspecified (principal); Y90.8 Blood alcohol level of 240 mg/100 ml or more; B19.20 Unspecified viral hepatitis C without hepatic coma; I48.91 Unspecified atrial fibrillation
CPT/HCPCS: 80307; 99283

== ENCOUNTER 2016-12-25 11:40 | Emergency (ER) | payer SELFPAY ==
[~2016-12-25] VITALS: Ht 177.8 cm; Wt 75.0 kg
[2016-12-25 11:49] VITALS: BP 113/63; PULSE 86; RESP 20; TEMP 98.2; O2SAT 97
[2016-12-25 12:31] LABS: AUTOMATED NEUTROPHIL # 6.8 TH/MM3 (1.8-7.7); BASOPHIL % 0.2 % (0.0-2.0); HEMATOCRIT 37.3 % (39.0-51.0); HEMO FLAGS DIFF FINAL; LYMPH % 14.4 % (9.0-44.0); LYMPHOCYTE # 1.2 TH/MM3 (1.0-4.8); MEAN CELL VOLUME 99.6 FL (80.0-100.0); MEAN CORPUSCULAR HGB CONC 33.1 % (32.0-36.0); MONO % 5.8 % (0.0-8.0); NEUT % 79.6 % (16.0-70.0); PLATELET COUNT 101 TH/MM3 (150-450); RED BLOOD COUNT 3.75 MIL/MM3 (4.50-5.90); RED CELL DISTRIBUTION WIDTH 14.4 % (11.6-17.2); WHITE BLOOD COUNT 8.5 TH/MM3 (4.0-11.0)
--- NOTE | 2016-12-25 12:46 | PD ---
HPI Chief Complaint: Alcohol/Drug Intoxication Time Seen by Provider: 12:00 Travel History International Travel<30 days: No Contact w/Intl Traveler<30days: No Traveled to known affect area: No History of Present Illness HPI 61-year-old gentleman who is homeless, history of alcoholism, presents today under Gutierres act. Patient was found to be intoxicated and was placed under Gutierres act by the PD. Patient admits to drinking alcohol. He denies any suicidal or homicidal ideation on my examination. There are no other complaints. PFSH Past Medical History Atrial Fibrillation: Yes Anxiety: Yes Depression: Yes Heart Rhythm Problems: No Cancer: No Cardiovascular Problems: No High Cholesterol: No Chest Pain: No Congestive Heart Failure: No Cerebrovascular Accident: No Diabetes: No Dialysis: No Diminished Hearing: No Endocrine: No Gastrointestinal Disorders: Yes (CDT colitis) GERD: No Genitourinary: No Hepatitis: Yes (HEP C) Hiatal Hernia: No Heparin Induced Thrombocytopen: No Hypertension: Yes Immune Disorder: No Implanted Vascular Access Dvce: No Kidney Stones: No Musculoskeletal: No Neurologic: No Psychiatric: No Reproductive: No Respiratory: No Immunizations Current: Yes Migraines: No Renal Failure: No Seizures: Yes (RELATED TO ALCOHOL WITHDRAW) Sickle Cell Disease: No Ulcer: No Past Surgical History Abdominal Surgery: No AICD: No Arteriovenous Shunt: No Cardiac Surgery: No Ear Surgery: No Endocrine Surgery: No Eye Surgery: No Genitourinary Surgery: No Gynecologic Surgery: No Insulin Pump: No Joint Replacement: No Neurologic Surgery: No Oral Surgery: Yes Pacemaker: No Thoracic Surgery: No Other Surgery: Yes (UNKNOWN BACK SURGERY) Social History Alcohol Use: Yes Tobacco Use: No Substance Use: No Allergies-Medications (Allergen,Severity, Reaction): Coded Allergies: Prozac (Unverified Allergy, Mild, Rash, 12/24/16) Penicillin (Verified Allergy, Unknown, 12/24/16) Reported Meds & Prescriptions Reported Meds & Active Scripts Active No Active Prescriptions or Reported Medications Review of Systems Except as stated in HPI: all other systems reviewed are Neg General / Constitutional: No: Fever, Chills HENT: No: Headaches, Neck Pain Cardiovascular: No: Chest Pain or Discomfort, Palpitations Respiratory: No: Cough, Shortness of Breath Gastrointestinal: No: Nausea, Vomiting, Abdominal Pain Genitourinary: No: Incontinence Musculoskeletal: No: Weakness, Pain Neurologic: Positive: Slurred Speech, No: Weakness, Headache Psychiatric: No: Suicidal Ideations, Homicidal Ideation Physical Exam Narrative GENERAL: Well developed well-nourished male in no acute rest her distress SKIN: Focused skin assessment warm/dry. HEAD: Atraumatic. Normocephalic. EYES: No scleral icterus. No injection or drainage. ENT: No nasal bleeding or discharge. Mucous membranes pink and moist. NECK: Trachea midline. Supple. CARDIOVASCULAR: Regular rate and rhythm. No murmur appreciated. RESPIRATORY: No accessory muscle use. Clear to auscultation. Breath sounds equal bilaterally. GASTROINTESTINAL: Abdomen soft, non-tender, nondistended. Hepatic and splenic margins not palpable. MUSCULOSKELETAL: No obvious deformities. No clubbing. No cyanosis. No edema. NEUROLOGICAL: Awake and alert. No obvious cranial nerve deficits. Motor grossly within normal limits. Slurred speech. Data Data Last Documented VS Vital Signs Date Time Temp Pulse Resp B/P Pulse Ox O2 Delivery O2 Flow Rate FiO2 12/25/16 11:49 98.2 86 20 113/63 97 Orders Admit Order (Ed Use Only) (12/25/16 12:01) Complete Blood Count With Diff (12/25/16 12:13) Comprehensive Metabolic Panel (12/25/16 12:13) Psych Screen (12/25/16 12:13) Drug Screen, Random Urine (12/25/16 12:13) Alcohol (Ethanol) (12/25/16 12:13) Physician Name Changes (12/25/16 ) Ns + Kcl 40 Meq Inj (Ns + Kcl 40 Meq Inj (12/25/16 14:00) Potassium, Serum (K) (12/25/16 17:41) Labs Laboratory Tests Test 12/25/16 12/25/16 12:15 17:50 White Blood Count 8.5 TH/MM3 Red Blood Count 3.75 MIL/MM3 Hemoglobin 12.4 GM/DL Hematocrit 37.3 % Mean Corpuscular Volume 99.6 FL Mean Corpuscular Hemoglobin 33.0 PG Mean Corpuscular Hemoglobin 33.1 % Concent Red Cell Distribution Width 14.4 % Platelet Count 101 TH/MM3 Mean Platelet Volume 6.6 FL Neutrophils (%) (Auto) 79.6 % Lymphocytes (%) (Auto) 14.4 % Monocytes (%) (Auto) 5.8 % Eosinophils (%) (Auto) 0.0 % Basophils (%) (Auto) 0.2 % Neutrophils # (Auto) 6.8 TH/MM3 Lymphocytes # (Auto) 1.2 TH/MM3 Monocytes # (Auto) 0.5 TH/MM3 Eosinophils # (Auto) 0.0 TH/MM3 Basophils # (Auto) 0.0 TH/MM3 CBC Comment DIFF FINAL Differential Comment Sodium Level 149 MEQ/L Potassium Level 2.9 MEQ/L 3.6 MEQ/L Chloride Level 113 MEQ/L Carbon Dioxide Level 24.2 MEQ/L Anion Gap 12 MEQ/L Blood Urea Nitrogen 2 MG/DL Creatinine 0.73 MG/DL Estimat Glomerular Filtration 110 ML/MIN Rate Random Glucose 119 MG/DL Calcium Level 7.3 MG/DL Protein Corrected Calcium 7.7 MG/DL Total Bilirubin 0.6 MG/DL Aspartate Amino Transf 119 U/L (AST/SGOT) Alanine Aminotransferase 110 U/L (ALT/SGPT) Alkaline Phosphatase 93 U/L Total Protein 6.3 GM/DL Albumin 3.0 GM/DL Ethyl Alcohol Level 408 MG/DL [facility] Medical Decision Making Medical Screen Exam Complete: Yes Emergency Medical Condition: Yes Differential Diagnosis Alcohol ingestion versus polysubstance abuse versus metabolic arrangement. Narrative Course 61-year-old gentleman brought in under Gutierres act. The patient has acute alcohol intoxication. The patient has been medically cleared for psychiatric evaluation. He is had his potassium replaced. He'll be placed on the [facility] protocol for ED Gutierres act. Diagnosis Primary Impression: Gutierres act Additional Impression: Alcohol abuse with intoxication Scripts No Active Prescriptions or Reported Meds Jorge L Hinds MD Dec 25, 2016 12:46
[2016-12-25 12:58] LABS: BICARBONATE 24.2 MEQ/L (21.0-32.0)
[2016-12-25 13:03] LABS: CALCIUM-PROTEIN CORRECTED 7.7 MG/DL (8.5-10.1); TOTAL BILIRUBIN ADULT 0.6 MG/DL (0.2-1.0)
[2016-12-25 13:04] LABS: POTASSIUM 2.9 MEQ/L (3.5-5.1)
[2016-12-25] MEDS: NS + KCL 40 MEQ INJ 1,000 ML IV SCH ×2 (13:53→15:04)
[2016-12-25 19:00] VITALS: BP 128/66; PULSE 89; RESP 21; O2SAT 98
[2016-12-25] MEDS ORDERED: FLUMAZENIL 0.5 MG/5 ML VIAL IV PUSH PRN (19:45)
[2016-12-25] MEDS ORDERED: LORazepam 1 MG TAB PO PRN (19:45)
[2016-12-25] MEDS ORDERED: LORazepam 2 MG TAB PO PRN (19:45)
[2016-12-25] MEDS ORDERED: LORazepam 2 MG/ML VIAL IV PUSH PRN ×3 (19:45)
[2016-12-25 23:00] VITALS: BP 117/69; PULSE 85; RESP 22; O2SAT 97
[2016-12-25] MEDS: LORazepam 2 MG/ML VIAL IV PUSH PRN (23:58)
[2016-12-26 03:00] VITALS: BP 121/70; PULSE 78; RESP 19; O2SAT 95
[2016-12-26] MEDS: LORazepam 2 MG/ML VIAL IV PUSH PRN (03:08)
[2016-12-26] MEDS: NS + KCL 40 MEQ INJ 1,000 ML IV SCH (06:00)
--- NOTE | 2016-12-26 07:48 | PD ---
History of Present Illness Chief Complaint: Alcohol/Drug Intoxication Time Seen by Provider: 07:45 Travel History International Travel<30 Days: No Contact w/Intl Traveler<30days: No Known affected area: No Legal Status Legal Status: Gutierres Act Gutierres Act Signed By: Keysha Gutierres Act Comment: Signed by [facility] Officer Laura Noe #[id number]. History of Present Illness: History of Present Illness 61-year-old male with history of alcohol dependence who is homeless presents today under Gutierres act initiated by [place] [employer]after he was found intoxicated at a [employer] parking lot. He reported to the police that he was going thru alcohol withdrawal and he wanted help with such. He also told them that he wanted to kill himself. Patient admits to drinking alcohol. He denies any suicidal or homicidal ideation on my examination. There are no other complaints. Patient presented to ED with BAL of 408. Seen. EMR reviewed. He has multiple visits to ED for alcohol related complaints and usually presents intoxicated. Patient awake, alert and oriented. Speech is clear and logical. He is clinically sober. he is observed ambulating to the bathroom with no difficulty. There is no psychosis and no dilip. Patient with no suicdal or homicidal ideation, intent or plan. he does report that he feels ill and has been feeling ill for the past month when he was dx with C Diff. He reports that he did not comply with his prescribed antibiotics. Denies any suicidal or homicidal ideation. Patient is provided with information regarding detox including presenting to [facility] Past Medical History Atrial Fibrillation: Yes Anxiety: Yes Depression: Yes Heart Rhythm Problems: No Cancer: No Cardiovascular Problems: No High Cholesterol: No Chest Pain: No Congestive Heart Failure: No Cerebrovascular Accident: No Diabetes: No Dialysis: No Diminished Hearing: No Endocrine: No Gastrointestinal Disorders: Yes (CDT colitis) GERD: No Genitourinary: No Hepatitis: Yes (HEP C) Hiatal Hernia: No Heparin Induced Thrombocytopen: No Hypertension: Yes Immune Disorder: No Implanted Vascular Access Dvce: No Kidney Stones: No Musculoskeletal: No Neurologic: No Psychiatric: No Reproductive: No Respiratory: No Immunizations Current: Yes Migraines: No Renal Failure: No Seizures: Yes (RELATED TO ALCOHOL WITHDRAW) Sickle Cell Disease: No Ulcer: No Past Surgical History Abdominal Surgery: No AICD: No Arteriovenous Shunt: No Cardiac Surgery: No Ear Surgery: No Endocrine Surgery: No Eye Surgery: No Genitourinary Surgery: No Gynecologic Surgery: No Insulin Pump: No Joint Replacement: No Neurologic Surgery: No Oral Surgery: Yes Pacemaker: No Thoracic Surgery: No Other Surgery: Yes (UNKNOWN BACK SURGERY) Psychiatric History Psychiatric History Hx Psychiatric Treatment: PATIENT WAS LAST ADMITTED TO [facility] FROM 11/25/15 TO 11/29/15 FOR DEPRESSION associated with alcohol abuse. History of Inpatient Treatment: Yes Guns or firearms in home: No Social History Homeless male. Hx Alcohol Use: Yes Hx Tobacco Use: No Hx Substance Use: Yes Substance Use Type: Alcohol, Benzos (Valium,Xanax), Synth Opiates-Pain Pills Other Substances Used: last alcohol 0200 and last heroin 3 days ago Hx of Substance Use Treatment: Yes Family Psychiatric History Negative Allergies-Medications (Allergen,Severity, Reaction): Coded Allergies: Prozac (Unverified Allergy, Mild, Rash, 12/26/16) Penicillin (Verified Allergy, Unknown, 12/26/16) Reported Meds & Prescriptions Reported Meds & Active Scripts Active No Active Prescriptions or Reported Medications Review of Systems Gastrointestinal: COMPLAINS OF: Diarrhea Exam Alert: Yes [place]: Person (ox4) Mood: Calm Affect: Appropriate Speech: Clear, Logical Eye Contact: Normal Memory Intact: Comment (not impaired) Hallucinations: Other (negative) Delusions: No Suicidal: Ideation (deneis) Homicidal: Ideation (deneis) Insight/Judgement Poor. Poor [facility] Medical Decision Making Medical Record Reviewed: Yes Assessment/Plan 61-year-old gentleman who is homeless, history of alcoholism, presents today under Gutierres act. Patient was found to be intoxicated and was placed under Gutierres act by the PD. Patient admits to drinking alcohol. He denies any suicidal or homicidal ideation on my examination. No psychosis. No dilip BA is lifted. Cleared by psychiatry for disposition as per ED provider. Counseled on [facility] services for detox and substance abuse treatment. Orders Admit Order (Ed Use Only) (12/25/16 12:01) Complete Blood Count With Diff (12/25/16 12:13) Comprehensive Metabolic Panel (12/25/16 12:13) Psych Screen (12/25/16 12:13) Drug Screen, Random Urine (12/25/16 12:13) Alcohol (Ethanol) (12/25/16 12:13) Physician Name Changes (12/25/16 ) Ns + Kcl 40 Meq Inj (Ns + Kcl 40 Meq Inj (12/25/16 14:00) Potassium, Serum (K) (12/25/16 17:41) Alcohol Withdrawal Asmt-Ciwa ONCE (12/25/16 19:37) Flumazenil Inj (Romazicon Inj) (12/25/16 19:45) Lorazepam (Ativan) (12/25/16 19:45) Lorazepam Inj (Ativan Inj) (12/25/16 19:45) Lorazepam (Ativan) (12/25/16 19:45) Lorazepam Inj (Ativan Inj) (12/25/16 19:45) Lorazepam Inj (Ativan Inj) (12/25/16 19:45) Lorazepam Inj (Ativan Inj) (12/25/16 19:45) Results Vital Signs Date Time Temp Pulse Resp B/P Pulse Ox O2 Delivery O2 Flow Rate FiO2 12/26/16 03:00 78 19 121/70 95 Room Air 12/25/16 23:00 85 22 117/69 97 Room Air 12/25/16 19:00 89 21 128/66 98 Room Air 12/25/16 11:49 98.2 86 20 113/63 97 Laboratory Tests Test 12/25/16 12/25/16 12:15 17:50 White Blood Count 8.5 Red Blood Count 3.75 Hemoglobin 12.4 Hematocrit 37.3 Mean Corpuscular Volume 99.6 Mean Corpuscular Hemoglobin 33.0 Mean Corpuscular Hemoglobin 33.1 Concent Red Cell Distribution Width 14.4 Platelet Count 101 Mean Platelet Volume 6.6 Neutrophils (%) (Auto) 79.6 Lymphocytes (%) (Auto) 14.4 Monocytes (%) (Auto) 5.8 Eosinophils (%) (Auto) 0.0 Basophils (%) (Auto) 0.2 Neutrophils # (Auto) 6.8 Lymphocytes # (Auto) 1.2 Monocytes # (Auto) 0.5 Eosinophils # (Auto) 0.0 Basophils # (Auto) 0.0 CBC Comment DIFF FINAL Differential Comment Sodium Level 149 Potassium Level 2.9 3.6 Chloride Level 113 Carbon Dioxide Level 24.2 Anion Gap 12 Blood Urea Nitrogen 2 Creatinine 0.73 Estimat Glomerular Filtration 110 Rate Random Glucose 119 Calcium Level 7.3 Protein Corrected Calcium 7.7 Total Bilirubin 0.6 Aspartate Amino Transf 119 (AST/SGOT) Alanine Aminotransferase 110 (ALT/SGPT) Alkaline Phosphatase 93 Total Protein 6.3 Albumin 3.0 Ethyl Alcohol Level 408 Diagnosis Primary Impression: Alcohol dependence with acute alcoholic intoxication Additional Impression: Gutierres act Psychiatrically Cleared: Yes Prescriptions No Active Prescriptions or Reported Meds Problem Qualifiers Primary Impression: Alcohol dependence with acute alcoholic intoxication Qualified Code: F10.220 - Alcohol dependence with acute alcoholic intoxication without complication Kasey Taylor [facility] Dec 26, 2016 07:48
[2016-12-26 08:00] VITALS: BP 131/84; PULSE 93; RESP 15; O2SAT 96
== END 2016-12-26 08:47 | disposition home or self-care (01) ==
LOC: NEPC 11:40
DX: Z02.89 Encounter for other administrative examinations (principal); F10.920 Alcohol use, unspecified with intoxication, uncomplicated; F41.9 Anxiety disorder, unspecified
CPT/HCPCS: 80053; 80307; 84132; 85025; 96365; 96366; 96375; 96376; 99285; J2060; J3480

== ENCOUNTER 2016-12-26 11:17 | Emergency (ER) | payer SELFPAY ==
[~2016-12-26] VITALS: Ht 182.9 cm; Wt 70.0 kg
[2016-12-26 11:24] VITALS: BP 134/72; PULSE 76; RESP 15; TEMP 98.2; O2SAT 98
--- NOTE | 2016-12-26 11:45 | PD ---
Physical Exam Time Seen by Provider: 11:44 Narrative 61 y/o male alcoholic, seen here earlier today, presents c/o alcohol withdrawal - feeling rapid heart beat, tremors. 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 Vital signs reviewed. Seen at triage desk. Awaiting bed placement. Data Data Last Documented VS Vital Signs Date Time Temp Pulse Resp B/P Pulse Ox O2 Delivery O2 Flow Rate FiO2 12/26/16 11:24 98.2 76 15 134/72 98 MDM Medical Record Reviewed: Yes Supervised Visit with DIANNE: No Scripts No Active Prescriptions or Reported Meds Jed Pires Dec 26, 2016 11:45
[2016-12-26] MEDS ORDERED: LORazepam 1 MG TAB PO ONE (15:15)
--- NOTE | 2016-12-26 15:22 | PD ---
HPI Chief Complaint: Alcohol/Drug Intoxication Time Seen by Provider: 14:52 Travel History International Travel<30 days: No Contact w/Intl Traveler<30days: No Traveled to known affect area: No History of Present Illness HPI Patient is a 61-year-old male who returns to emergency room for alcohol withdrawal. Patient was just discharged home from the ER as he is an alcoholic, reports that he had his last drink 2 days ago and feels "shakey" from withdrawal. Patient denies si/hi. No other c/o. PFSH Past Medical History Atrial Fibrillation: Yes Anxiety: Yes Depression: Yes Heart Rhythm Problems: No Cancer: No Cardiovascular Problems: No High Cholesterol: No Chest Pain: No Congestive Heart Failure: No Cerebrovascular Accident: No Diabetes: No Dialysis: No Diminished Hearing: No Endocrine: No Gastrointestinal Disorders: Yes (CDT colitis) GERD: No Genitourinary: No Hepatitis: Yes (HEP C) Hiatal Hernia: No Heparin Induced Thrombocytopen: No Hypertension: Yes Immune Disorder: No Implanted Vascular Access Dvce: No Kidney Stones: No Musculoskeletal: No Neurologic: No Psychiatric: No Reproductive: No Respiratory: No Immunizations Current: Yes Migraines: No Renal Failure: No Seizures: Yes (RELATED TO ALCOHOL WITHDRAW) Sickle Cell Disease: No Ulcer: No Past Surgical History Surgical History: Unable to Obtain Abdominal Surgery: No AICD: No Arteriovenous Shunt: No Cardiac Surgery: No Ear Surgery: No Endocrine Surgery: No Eye Surgery: No Genitourinary Surgery: No Gynecologic Surgery: No Insulin Pump: No Joint Replacement: No Neurologic Surgery: No Oral Surgery: Yes Pacemaker: No Thoracic Surgery: No Other Surgery: Yes (UNKNOWN BACK SURGERY) Social History Alcohol Use: Yes Tobacco Use: No Substance Use: Yes Allergies-Medications (Allergen,Severity, Reaction): Coded Allergies: Prozac (Unverified Allergy, Mild, Rash, 12/26/16) Penicillin (Verified Allergy, Unknown, 12/26/16) Reported Meds & Prescriptions Reported Meds & Active Scripts Active No Active Prescriptions or Reported Medications Review of Systems General / Constitutional: No: Fever Eyes: No: Visual changes HENT: No: Headaches Cardiovascular: No: Chest Pain or Discomfort Respiratory: No: Shortness of Breath Gastrointestinal: No: Abdominal Pain Genitourinary: No: Dysuria Musculoskeletal: No: Pain Skin: No Rash Neurologic: No: Weakness Psychiatric: Positive: Substance Abuse (alcohol withdrawl), No: Depression Endocrine: No: Polydipsia Hematologic/Lymphatic: No: Easy Bruising Physical Exam Narrative GENERAL: nad,nontoxic SKIN: Focused skin assessment warm/dry. HEAD: Atraumatic. Normocephalic. EYES: Pupils equal and round. No scleral icterus. No injection or drainage. ENT: No nasal bleeding or discharge. Mucous membranes pink and moist. NECK: Trachea midline. No JVD. CARDIOVASCULAR: Regular rate and rhythm. No murmur appreciated. RESPIRATORY: No accessory muscle use. Clear to auscultation. Breath sounds equal bilaterally. GASTROINTESTINAL: Abdomen soft, non-tender, nondistended. Hepatic and splenic margins not palpable. MUSCULOSKELETAL: No obvious deformities. No clubbing. No cyanosis. No edema. NEUROLOGICAL: Awake and alert. No obvious cranial nerve deficits. Motor grossly within normal limits. Normal speech. PSYCHIATRIC: Appropriate mood and affect; insight and judgment normal. Denies suicidal/homicidal ideations Data Data Last Documented VS Vital Signs Date Time Temp Pulse Resp B/P Pulse Ox O2 Delivery O2 Flow Rate FiO2 12/26/16 15:02 20 Room Air 12/26/16 11:24 98.2 76 134/72 98 Orders Lorazepam (Ativan) (12/26/16 15:15) Alcohol (Ethanol) (12/26/16 15:12) Labs Laboratory Tests Test 12/26/16 15:30 Ethyl Alcohol Level 352 MG/DL [facility] Medical Decision Making Medical Screen Exam Complete: Yes Emergency Medical Condition: Yes Interpretation(s) Vital Signs Date Time Temp Pulse Resp B/P Pulse Ox O2 Delivery O2 Flow Rate FiO2 12/26/16 15:02 20 Room Air 12/26/16 11:24 98.2 76 15 134/72 98 Differential Diagnosis Differential includes alcohol dependence, alcohol withdrawal Narrative Course 61-year-old male who was just discharged from the hospital, presents to emergency room with alcohol withdrawal symptoms as his last drink was 2 days ago. Patient with no other c/o. po dose of ativan ordered patient reports that last drink was 2 days ago, he did have an alcohol level drawn on 12/25/16 at 12:15 - his alcohol level was 408. ETOH 352 - patient most likely drank etoh after he was discharged from ER this morning patient with no c/o. patient will sleep off his etoh and be discharged once clinically sober Diagnosis Primary Impression: Alcohol abuse Additional Impression: Alcohol withdrawal Patient Instructions: General Instructions Additional Instructions: Please drink responsibly Follow up with your primary care doctor Return to ER as needed Med/Other Pt SpecificInfo: Prescription(s) given Scripts No Active Prescriptions or Reported Meds Shaina Renee DO Dec 26, 2016 15:22
== END 2016-12-26 21:50 | disposition home or self-care (01) ==
LOC: NEPD 11:17 → NEDAMB 21:50
DX: F10.239 Alcohol dependence with withdrawal, unspecified (principal); F41.9 Anxiety disorder, unspecified
CPT/HCPCS: 80307; 99283

== ENCOUNTER 2016-12-27 09:17 | Emergency (ER) | payer SELFPAY ==
[~2016-12-27] VITALS: Ht 180.3 cm; Wt 80.0 kg
[2016-12-27 09:26] VITALS: BP 110/67; PULSE 90; RESP 20; TEMP 97.7; O2SAT 96
[2016-12-27] MEDS ORDERED: SODIUM CHLORIDE 0.9% FLUSH 10 ML FLUSH IVF PRN (09:45)
--- NOTE | 2016-12-27 09:45 | PD ---
HPI Chief Complaint: Alcohol/Drug Intoxication Time Seen by Provider: 09:32 Travel History International Travel<30 days: No Contact w/Intl Traveler<30days: No Traveled to known affect area: No History of Present Illness HPI Patient is a 61-year-old male who presents to emergency room for suicidal ideation. Patient reports that he is an alcoholic and would like to . Reports "I am thinking of a plan, I do not have a plan yet." Reports that he was seen yesterday for alcoholism, reports that he does not want to live at this time. Patient did drink alcohol this morning PFSH Past Medical History Atrial Fibrillation: Yes Anxiety: Yes Depression: Yes Heart Rhythm Problems: No Cancer: No Cardiovascular Problems: No High Cholesterol: No Chest Pain: No Congestive Heart Failure: No Cerebrovascular Accident: No Diabetes: No Dialysis: No Diminished Hearing: No Endocrine: No Gastrointestinal Disorders: Yes (CDT colitis) GERD: No Genitourinary: No Hepatitis: Yes (HEP C) Hiatal Hernia: No Heparin Induced Thrombocytopen: No Hypertension: Yes Immune Disorder: No Implanted Vascular Access Dvce: No Kidney Stones: No Musculoskeletal: No Neurologic: No Psychiatric: No Reproductive: No Respiratory: No Immunizations Current: Yes Migraines: No Renal Failure: No Seizures: Yes (RELATED TO ALCOHOL WITHDRAW) Sickle Cell Disease: No Ulcer: No Past Surgical History Abdominal Surgery: No AICD: No Arteriovenous Shunt: No Cardiac Surgery: No Ear Surgery: No Endocrine Surgery: No Eye Surgery: No Genitourinary Surgery: No Gynecologic Surgery: No Insulin Pump: No Joint Replacement: No Neurologic Surgery: No Oral Surgery: Yes Pacemaker: No Thoracic Surgery: No Other Surgery: Yes (UNKNOWN BACK SURGERY) Social History Alcohol Use: Yes Tobacco Use: No Substance Use: Yes Allergies-Medications (Allergen,Severity, Reaction): Coded Allergies: Prozac (Verified Allergy, Mild, Rash, 12/27/16) Penicillin (Verified Allergy, Unknown, 12/27/16) Reported Meds & Prescriptions Reported Meds & Active Scripts Active No Active Prescriptions or Reported Medications Review of Systems General / Constitutional: No: Fever Eyes: No: Visual changes HENT: No: Headaches Cardiovascular: No: Chest Pain or Discomfort Respiratory: No: Shortness of Breath Gastrointestinal: No: Abdominal Pain Genitourinary: No: Dysuria Musculoskeletal: No: Pain Skin: No Rash Neurologic: No: Weakness Psychiatric: Positive: Suicidal Ideations, Substance Abuse, No: Depression Endocrine: No: Polydipsia Hematologic/Lymphatic: No: Easy Bruising Physical Exam Narrative GENERAL: NAD SKIN: Focused skin assessment warm/dry. HEAD: Atraumatic. Normocephalic. EYES: Pupils equal and round. No scleral icterus. No injection or drainage. ENT: No nasal bleeding or discharge. Mucous membranes pink and moist. NECK: Trachea midline. No JVD. CARDIOVASCULAR: Regular rate and rhythm. No murmur appreciated. RESPIRATORY: No accessory muscle use. Clear to auscultation. Breath sounds equal bilaterally. GASTROINTESTINAL: Abdomen soft, non-tender, nondistended. Hepatic and splenic margins not palpable. MUSCULOSKELETAL: No obvious deformities. No clubbing. No cyanosis. No edema. NEUROLOGICAL: Awake and alert. No obvious cranial nerve deficits. Motor grossly within normal limits. Normal speech. PSYCHIATRIC: Depressed affect, positive suicidal ideations Data Data Last Documented VS Vital Signs Date Time Temp Pulse Resp B/P Pulse Ox O2 Delivery O2 Flow Rate FiO2 12/27/16 09:26 97.7 90 20 110/67 96 Room Air Orders Complete Blood Count With Diff (12/27/16 09:32) Comprehensive Metabolic Panel (12/27/16 09:32) Iv Access Insert/Monitor (12/27/16 09:32) Psych Screen (12/27/16 09:32) Sodium Chloride 0.9% Flush (Ns Flush) (12/27/16 09:45) MDM Medical Decision Making Medical Screen Exam Complete: Yes Emergency Medical Condition: Yes Interpretation(s) Vital Signs Date Time Temp Pulse Resp B/P Pulse Ox O2 Delivery O2 Flow Rate FiO2 12/27/16 09:26 97.7 90 20 110/67 96 Room Air Differential Diagnosis Differential includes alcohol intoxication, depression, suicidal ideation Narrative Course 61-year-old male who presents to emergency room for suicidal ideation. Patient is an alcoholic, well-known to facilities. He returns to emergency room as he reports that he does not want to live anymore due to his alcoholism. Screening labs ordered. Once medically cleared, will have patient screened Scripts No Active Prescriptions or Reported Meds Shaina Renee DO Dec 27, 2016 09:44
[2016-12-27 10:34] LABS: AUTOMATED NEUTROPHIL # 4.5 TH/MM3 (1.8-7.7); BASOPHIL % 0.3 % (0.0-2.0); EOSINOPHIL % 0.2 % (0.0-4.0); HEMATOCRIT 39.2 % (39.0-51.0); LYMPH % 17.2 % (9.0-44.0); MEAN CELL VOLUME 98.4 FL (80.0-100.0); MEAN CORPUSCULAR HEMOGLOBIN 33.2 PG (27.0-34.0); MEAN CORPUSCULAR HGB CONC 33.7 % (32.0-36.0); MONO % 7.8 % (0.0-8.0); NEUT % 74.5 % (16.0-70.0); PLATELET COUNT 99 TH/MM3 (150-450); RED BLOOD COUNT 3.99 MIL/MM3 (4.50-5.90); RED CELL DISTRIBUTION WIDTH 14.5 % (11.6-17.2); WHITE BLOOD COUNT 6.1 TH/MM3 (4.0-11.0)
[2016-12-27 10:37] LABS: HEMO FLAGS AUTO DIFF
[2016-12-27 10:52] LABS: ALKALINE PHOSPHATASE 104 U/L (45-117); ALT (GPT) 87 U/L (12-78); ANION GAP 11 MEQ/L (5-15); AST (GOT) 63 U/L (15-37); BICARBONATE 25.3 MEQ/L (21.0-32.0); BLOOD UREA NITROGEN 3 MG/DL (7-18); CHLORIDE 107 MEQ/L (98-107); GLOMERULAR FILTRATION RATE 114 ML/MIN (>89); POTASSIUM 3.1 MEQ/L (3.5-5.1); SODIUM (NA) 143 MEQ/L (136-145); TOTAL BILIRUBIN ADULT 0.7 MG/DL (0.2-1.0)
[2016-12-27 10:53] LABS: ACETAMINOPHEN LESS THAN 2.0 MCG/ML (10.0-30.0)
[2016-12-27] MEDS ORDERED: POTASSIUM CHLORIDE 10 MEQ CONTROLLED RELEASE TAB PO ONE (11:00)
[2016-12-27 11:15] LABS: ALCOHOL 306 MG/DL (0-5)
[2016-12-27 11:36] LABS: PLATELET ESTIMATE SMEAR LOW (NORMAL); PLATELET MORPHOLOGY NORMAL (NORMAL); SCAN/DIFF AUTO DIFF CONFIRMED
--- NOTE | 2016-12-27 13:37 | PD ---
History of Present Illness Chief Complaint: Alcohol/Drug Intoxication Time Seen by Provider: 13:30 Travel History International Travel<30 Days: No Contact w/Intl Traveler<30days: No Known affected area: No Legal Status Legal Status: Voluntary History of Present Illness: This is a 61-year-old male who is well known to the emergency department staff and this physician. He presented yesterday with alcohol intoxication. He is presenting again this morning after having consumed alcohol. He is not threatening suicide at the time of this physician's evaluation. However, the patient is stating that he has not had alcohol since yesterday. The patient has a track record of inaccurate representations regarding his use of alcohol. This physician feels the patient is also quite manipulative when it comes to claiming suicidality. Therefore, despite the risks of the patient acting out and hurting himself to "show" this physician the seriousness of his threats, I feel it is inappropriate and counter therapeutic to get into his manipulations. He was again referred to [facility] for evaluation and treatment of his alcoholism, which is his [place] problem. PFSH Past Medical History Atrial Fibrillation: Yes Anxiety: Yes Depression: Yes Heart Rhythm Problems: No Cancer: No Cardiovascular Problems: No High Cholesterol: No Chest Pain: No Congestive Heart Failure: No Cerebrovascular Accident: No Diabetes: No Dialysis: No Diminished Hearing: No Endocrine: No Gastrointestinal Disorders: Yes (CDT colitis) GERD: No Genitourinary: No Hepatitis: Yes (HEP C) Hiatal Hernia: No Heparin Induced Thrombocytopen: No Hypertension: Yes Immune Disorder: No Implanted Vascular Access Dvce: No Kidney Stones: No Musculoskeletal: No Neurologic: No Psychiatric: No Reproductive: No Respiratory: No Immunizations Current: Yes Migraines: No Renal Failure: No Seizures: Yes (RELATED TO ALCOHOL WITHDRAW) Sickle Cell Disease: No Ulcer: No Past Surgical History Abdominal Surgery: No AICD: No Arteriovenous Shunt: No Cardiac Surgery: No Ear Surgery: No Endocrine Surgery: No Eye Surgery: No Genitourinary Surgery: No Gynecologic Surgery: No Insulin Pump: No Joint Replacement: No Neurologic Surgery: No Oral Surgery: Yes Pacemaker: No Thoracic Surgery: No Other Surgery: Yes (UNKNOWN BACK SURGERY) Psychiatric History Psychiatric History Hx Psychiatric Treatment: PATIENT WAS LAST ADMITTED TO [facility] FROM 11/25/15 TO 11/29/15 FOR DEPRESSION associated with alcohol abuse. This physician does not find any significant objectively clinical evidence of steve ana depression. Rather, his problems appear to stem from its ongoing alcohol abuse. History of Inpatient Treatment: Yes Guns or firearms in home: No Social History Hx Alcohol Use: Yes ("as much as i can handle everyday.") Hx Tobacco Use: No Hx Substance Use: Yes ("you name it") Substance Use Type: Alcohol, Benzos (Valium,Xanax), Synth Opiates-Pain Pills Other Substances Used: last alcohol 0200 and last heroin 3 days ago Hx of Substance Use Treatment: Yes Allergies-Medications (Allergen,Severity, Reaction): Coded Allergies: Prozac (Verified Allergy, Mild, Rash, 12/27/16) Penicillin (Verified Allergy, Unknown, 12/27/16) Reported Meds & Prescriptions Reported Meds & Active Scripts Active No Active Prescriptions or Reported Medications Review of Systems Except as stated in HPI: all other systems reviewed are Neg Exam Alert: Yes [place]: Person, Place, Date, Situation Mood: Calm Affect: Appropriate Speech: Clear, Logical Eye Contact: Normal Memory Intact: Immediate, Recent, Remote Insight/Judgement Adequate MDM Medical Decision Making Medical Record Reviewed: Yes Assessment/Plan This physician spoke with the patient's nurse as well as the patient's ED attending regarding his repeated visits here and his problem with alcoholism. This physician again feels it is counter therapeutic to get into the patient's manipulation and he does not qualify for a Gutierres act or inpatient psychiatric hospitalization. This physician acknowledges the risk the patient may act out to show how serious he is about harming himself but this risk is unpredictable and unavoidable. The patient is once again being referred to [facility] for evaluation and treatment of his alcoholism, which appears to be his primary diagnosis. Orders Complete Blood Count With Diff (12/27/16 09:32) Comprehensive Metabolic Panel (12/27/16 09:32) Iv Access Insert/Monitor (12/27/16 09:32) Psych Screen (12/27/16 09:32) Sodium Chloride 0.9% Flush (Ns Flush) (12/27/16 09:45) Drug Screen, Random Urine (12/27/16 09:32) Alcohol (Ethanol) (12/27/16 09:32) Salicylates (Aspirin) (12/27/16 09:32) Tylenol (Acetaminophen) (12/27/16 09:32) Potassium Chloride (Kcl) (12/27/16 11:00) Results Vital Signs Date Time Temp Pulse Resp B/P Pulse Ox O2 Delivery O2 Flow Rate FiO2 12/27/16 09:26 97.7 90 20 110/67 96 Room Air Laboratory Tests Test 12/27/16 12/27/16 10:00 11:00 White Blood Count 6.1 Red Blood Count 3.99 Hemoglobin 13.2 Hematocrit 39.2 Mean Corpuscular Volume 98.4 Mean Corpuscular Hemoglobin 33.2 Mean Corpuscular Hemoglobin 33.7 Concent Red Cell Distribution Width 14.5 Platelet Count 99 Mean Platelet Volume 6.3 Neutrophils (%) (Auto) 74.5 Lymphocytes (%) (Auto) 17.2 Monocytes (%) (Auto) 7.8 Eosinophils (%) (Auto) 0.2 Basophils (%) (Auto) 0.3 Neutrophils # (Auto) 4.5 Lymphocytes # (Auto) 1.0 Monocytes # (Auto) 0.5 Eosinophils # (Auto) 0.0 Basophils # (Auto) 0.0 CBC Comment AUTO DIFF Differential Comment AUTO DIFF CONFIRMED Platelet Estimate LOW Platelet Morphology Comment NORMAL Sodium Level 143 Potassium Level 3.1 Chloride Level 107 Carbon Dioxide Level 25.3 Anion Gap 11 Blood Urea Nitrogen 3 Creatinine 0.71 Estimat Glomerular Filtration 114 Rate Random Glucose 84 Calcium Level 8.2 Total Bilirubin 0.7 Aspartate Amino Transf 63 (AST/SGOT) Alanine Aminotransferase 87 (ALT/SGPT) Alkaline Phosphatase 104 Total Protein 6.9 Albumin 3.3 Salicylates Level LESS THAN 1.7 Acetaminophen Level LESS THAN 2.0 Ethyl Alcohol Level 306 Urine Opiates Screen NEG Urine Barbiturates Screen NEG Urine Amphetamines Screen NEG Urine Benzodiazepines Screen POS Urine Cocaine Screen NEG Urine Cannabinoids Screen NEG Diagnosis Primary Impression: Alcohol abuse Additional Impression: Adjustment disorder with mixed disturbance of emotions and conduct Prescriptions No Active Prescriptions or Reported Meds Problem Qualifiers Davie Oconnell MD Dec 27, 2016 13:36
[2016-12-27 13:41] VITALS: BP 114/62
== END 2016-12-27 13:42 | disposition home or self-care (01) ==
LOC: NEPD 09:17
DX: F10.129 Alcohol abuse with intoxication, unspecified (principal); F43.25 Adjustment disorder with mixed disturbance of emotions and conduct; B19.20 Unspecified viral hepatitis C without hepatic coma; I48.91 Unspecified atrial fibrillation; I10 Essential (primary) hypertension; Z88.0 Allergy status to penicillin
CPT/HCPCS: 80053; 80307; 85025; 99283

== ENCOUNTER 2016-12-27 15:48 | Emergency (ER) | payer SELFPAY ==
[~2016-12-27] VITALS: Ht 182.9 cm; Wt 73.0 kg
[2016-12-27 15:51] VITALS: BP 114/64; PULSE 82; RESP 20; TEMP 98.4; O2SAT 98
--- NOTE | 2016-12-27 15:57 | PD ---
Physical Exam Date Seen by Provider: Dec 27, 2016 Time Seen by Provider: 15:56 Narrative 61 yo male here for evaluation of diarrhea. History of C. diff. Was seen today and released to [facility] but they refused him and sent him back here. History of alcohol abuse and homlessness. Vitals are stable in triage. Awaiting Bed placement. Data Data Last Documented VS Vital Signs Date Time Temp Pulse Resp B/P Pulse Ox O2 Delivery O2 Flow Rate FiO2 12/27/16 15:51 98.4 82 20 114/64 98 Room Air [facility] Medical Record Reviewed: Yes Supervised Visit with DIANNE: No Scripts No Active Prescriptions or Reported Meds Corey Reynoso Dec 27, 2016 15:57
== END 2016-12-27 17:50 | disposition left against medical advice (07) ==
LOC: NED 15:48
DX: R19.7 Diarrhea, unspecified (principal)
CPT/HCPCS: 99281

== ENCOUNTER 2016-12-27 19:44 | Emergency (ER) | payer SELFPAY ==
[~2016-12-27] VITALS: Ht 182.9 cm; Wt 75.0 kg
--- NOTE | 2016-12-27 19:54 | PD ---
HPI . here under BA Chief Complaint: here under BA Time Seen by Provider: 19:54 Travel History International Travel<30 days: No Contact w/Intl Traveler<30days: No Traveled to known affect area: No History of Present Illness HPI 61-year-old male who is very well-known to the emergency department and recently released this afternoon after being cleared by psych here under Gutierres act. Apparently patient tried to go to [facility] and was told that he could not stay and is now here under Gutierres act. He tells me specifically that he requested Gutierres act so that he would be able to stay here in the hospital. He says he figured if he tells them he is suicidal, he knows they will keep him. He tells me he asked before stating he was suicidal and told, "yes it will help him stay." He denies any suicidal ideation or homicidal ideation. He tells me that he is about to shake off the planet, which is what he usually says. He has no visible signs of withdrawal. He was seen by Dr. Oconnell at 13:36 and discharged from a psychiatric standpoint. He did not meet criteria or BA or inpatient admission. He was told to see treatment for his alcoholism at [facility]. [facility] Past Medical History Atrial Fibrillation: Yes Anxiety: Yes Depression: Yes Heart Rhythm Problems: No Cancer: No Cardiovascular Problems: No High Cholesterol: No Chest Pain: No Congestive Heart Failure: No Cerebrovascular Accident: No Diabetes: No Dialysis: No Diminished Hearing: No Endocrine: No Gastrointestinal Disorders: Yes (CDT colitis) GERD: No Genitourinary: No Hepatitis: Yes (HEP C) Hiatal Hernia: No Heparin Induced Thrombocytopen: No Hypertension: Yes Immune Disorder: No Implanted Vascular Access Dvce: No Kidney Stones: No Musculoskeletal: No Neurologic: No Psychiatric: No Reproductive: No Respiratory: No Immunizations Current: Yes Migraines: No Renal Failure: No Seizures: Yes (RELATED TO ALCOHOL WITHDRAW) Sickle Cell Disease: No Ulcer: No Past Surgical History Abdominal Surgery: No AICD: No Arteriovenous Shunt: No Cardiac Surgery: No Ear Surgery: No Endocrine Surgery: No Eye Surgery: No Genitourinary Surgery: No Gynecologic Surgery: No Insulin Pump: No Joint Replacement: No Neurologic Surgery: No Oral Surgery: Yes Pacemaker: No Thoracic Surgery: No Other Surgery: Yes (UNKNOWN BACK SURGERY) Social History Alcohol Use: Yes ("as much as i can handle everyday.") Tobacco Use: No Substance Use: Yes ("you name it") Allergies-Medications (Allergen,Severity, Reaction): Coded Allergies: Prozac (Verified Allergy, Mild, Rash, 12/27/16) Penicillin (Verified Allergy, Unknown, 12/27/16) Reported Meds & Prescriptions Reported Meds & Active Scripts Active No Active Prescriptions or Reported Medications Review of Systems General / Constitutional: No: Fever Eyes: No: Visual changes HENT: No: Headaches Cardiovascular: No: Chest Pain or Discomfort Respiratory: No: Shortness of Breath Gastrointestinal: No: Abdominal Pain Genitourinary: No: Dysuria Musculoskeletal: No: Pain Skin: No Rash Neurologic: No: Weakness Psychiatric: No: Depression Endocrine: No: Polydipsia Hematologic/Lymphatic: No: Easy Bruising Physical Exam Narrative GENERAL: AAO x 3, no acute distress, slightly disheveled appearance but comfortable SKIN: Warm and dry. No visible rashes or bruising. HEAD: Normocephalic and atraumatic. EYES: No scleral icterus. No injection or drainage. EOM intact, PERRLA ENT: No nasal drainage noted. Mucous membranes pink. Airway patent. NECK: Supple, trachea midline. No JVD. CARDIOVASCULAR: Regular rate and rhythm without murmurs, gallops, or rubs. RESPIRATORY: Breath sounds equal bilaterally. No accessory muscle use. No rhonchi or rales. GASTROINTESTINAL: Abdomen soft, non-tender, nondistended. EXTREMITIES: No cyanosis or edema. BACK: No obvious deformity. 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 Data Data Last Documented VS Vital Signs Date Time Temp Pulse Resp B/P Pulse Ox O2 Delivery O2 Flow Rate FiO2 12/27/16 20:15 98.6 88 18 105/57 95 12/27/16 20:15 Room Air Orders MDM Medical Decision Making Medical Screen Exam Complete: Yes Emergency Medical Condition: Yes Medical Record Reviewed: Yes Differential Diagnosis malingering, alcohol abuse, less likely alcohol withdrawals Narrative Course 61 yr old male here under BA. He is actually not suicidal or homicidal. He is using Gutierres Act in attempts of gaining an overnight stay and has actually told me this. He was already cleared by Psych earlier today. I have discussed the case with Dr. Kim. Patient's BA will be lifted. Once he is clinically sober he will be discharged. I have educated him on the purpose of the ED, but he seems to still believe he should have a place to stay. I advised him to look into community resources to help his current living situation. Diagnosis Primary Impression: Alcohol abuse with intoxication Scripts No Active Prescriptions or Reported Meds Condition: Stable Victorina Marie Dec 27, 2016 19:54
[2016-12-27 20:15] VITALS: BP 105/57; PULSE 88; RESP 18; TEMP 98.6; O2SAT 95
[2016-12-28 00:40] VITALS: BP 145/76
== END 2016-12-28 00:30 | disposition home or self-care (01) ==
LOC: NEDAMB 19:44
DX: B19.20 Unspecified viral hepatitis C without hepatic coma (principal); I10 Essential (primary) hypertension; I48.91 Unspecified atrial fibrillation; Z88.0 Allergy status to penicillin
CPT/HCPCS: 99281

== ENCOUNTER 2016-12-28 10:45 | Emergency (ER) | payer OTHER ==
[~2016-12-28] VITALS: Ht 185.4 cm; Wt 76.0 kg
[2016-12-28 10:53] VITALS: BP 114/78; PULSE 86; RESP 18; TEMP 97.8; O2SAT 98
--- NOTE | 2016-12-28 11:02 | PD ---
HPI Chief Complaint: Psychiatric Symptoms Time Seen by Provider: 11:02 Travel History International Travel<30 days: No Contact w/Intl Traveler<30days: No Traveled to known affect area: No History of Present Illness HPI 61-year-old male well known to the ED with frequent visits yesterday, is brought in under the Gutierres act today stating that he does not get treatment for alcohol he will kill HIMSELF. He is complaining of lower abdominal discomfort and urinary frequency. He denies fever, chills, or other symptoms. He does have reports of diarrhea for the last month. Patient cannot remember the last time he drank. He is allergic to penicillin and Prozac. PFSH Past Medical History Atrial Fibrillation: Yes Anxiety: Yes Depression: Yes Heart Rhythm Problems: No Cancer: No Cardiovascular Problems: No High Cholesterol: No Chest Pain: No Congestive Heart Failure: No Cerebrovascular Accident: No Diabetes: No Dialysis: No Diminished Hearing: No Endocrine: No Gastrointestinal Disorders: Yes (CDT colitis) GERD: No Genitourinary: No Hepatitis: Yes (HEP C) Hiatal Hernia: No Heparin Induced Thrombocytopen: No Hypertension: Yes Immune Disorder: No Implanted Vascular Access Dvce: No Kidney Stones: No Musculoskeletal: No Neurologic: No Psychiatric: No Reproductive: No Respiratory: No Immunizations Current: Yes Migraines: No Renal Failure: No Seizures: Yes (RELATED TO ALCOHOL WITHDRAW) Sickle Cell Disease: No Ulcer: No Past Surgical History Abdominal Surgery: No AICD: No Arteriovenous Shunt: No Cardiac Surgery: No Ear Surgery: No Endocrine Surgery: No Eye Surgery: No Genitourinary Surgery: No Gynecologic Surgery: No Insulin Pump: No Joint Replacement: No Neurologic Surgery: No Oral Surgery: Yes Pacemaker: No Thoracic Surgery: No Other Surgery: Yes (UNKNOWN BACK SURGERY) Social History Alcohol Use: Yes (this am-3 bottles of cooking wine ) Tobacco Use: No Substance Use: Yes ("you name it") Allergies-Medications (Allergen,Severity, Reaction): Coded Allergies: Penicillin (Verified Allergy, Intermediate, rash, 12/28/16) Prozac (Verified Allergy, Mild, Rash, 12/28/16) Reported Meds & Prescriptions Reported Meds & Active Scripts Active No Active Prescriptions or Reported Medications Review of Systems ROS Limitations: Clinical Condition, Intoxication, Poor Historian Except as stated in HPI: all other systems reviewed are Neg General / Constitutional: No: Fever Eyes: No: Visual changes HENT: No: Headaches Cardiovascular: No: Chest Pain or Discomfort Respiratory: No: Shortness of Breath Gastrointestinal: No: Abdominal Pain Genitourinary: Positive: Urgency, Frequency, Incontinence, No: Dysuria Musculoskeletal: No: Pain Skin: No Rash Neurologic: No: Weakness Psychiatric: No: Depression Endocrine: No: Polydipsia Hematologic/Lymphatic: No: Easy Bruising Physical Exam Narrative GENERAL: Patient appears disheveled, unkempt, and intoxicated. SKIN: Warm and dry. Normal color. Poor turgor. HEAD: Atraumatic. Normocephalic. EYES: Pupils equal and round. No scleral icterus. No injection or drainage. ENT: No nasal bleeding or discharge. Mucous membranes pink and moist. Thanks is clear. Airway is patent. NECK: Trachea midline. Neck is supple and nontender. CARDIOVASCULAR: Regular rate and rhythm. RESPIRATORY: No accessory muscle use. Clear to auscultation. Breath sounds equal bilaterally. GASTROINTESTINAL: Abdomen soft, patient complains of diffuse lower abdominal tenderness, nondistended. Bowel sounds present in all quadrants. Hepatic and splenic margins not palpable. No CVA tenderness MUSCULOSKELETAL: Extremities without clubbing, cyanosis, or edema. No obvious deformities. NEUROLOGICAL: Awake and alert. No obvious cranial nerve deficits. Motor grossly within normal limits. Five out of 5 muscle strength in the arms and legs. Normal speech. PSYCHIATRIC: Patient appears intoxicated and confused. Data Data Last Documented VS Vital Signs Date Time Temp Pulse Resp B/P Pulse Ox O2 Delivery O2 Flow Rate FiO2 12/28/16 11:18 18 98 Room Air 12/28/16 10:55 83 12/28/16 10:53 97.8 114/78 Orders Complete Blood Count With Diff (12/28/16 11:04) Comprehensive Metabolic Panel (12/28/16 11:04) Psych Screen (12/28/16 11:04) Drug Screen, Random Urine (12/28/16 11:04) Alcohol (Ethanol) (12/28/16 11:04) Urinalysis - C+S If Indicated (12/28/16 11:09) Iv Access Insert/Monitor (12/28/16 11:09) Ecg Monitoring (12/28/16 11:09) Oximetry (12/28/16 11:09) Pantoprazole Inj (Protonix Inj) (12/28/16 11:15) Sodium Chlor 0.9% 1000 Ml Inj (Ns 1000 M (12/28/16 11:09) Sodium Chloride 0.9% Flush (Ns Flush) (12/28/16 11:15) Electrocardiogram (12/28/16 11:09) Thiamine Inj (Thiamine Inj) (12/28/16 11:15) Chlordiazepoxide (Librium) (12/28/16 11:15) Chest, Single Ap (12/28/16 11:15) Lipase (12/28/16 11:10) Potassium Chloride (Kcl) (12/28/16 12:00) Electrocardiogram (12/28/16 ) Labs Laboratory Tests Test 12/28/16 11:10 White Blood Count 7.8 TH/MM3 Red Blood Count 4.03 MIL/MM3 Hemoglobin 13.9 GM/DL Hematocrit 39.3 % Mean Corpuscular Volume 97.6 FL Mean Corpuscular Hemoglobin 34.6 PG Mean Corpuscular Hemoglobin 35.4 % Concent Red Cell Distribution Width 14.5 % Platelet Count 115 TH/MM3 Mean Platelet Volume 6.5 FL Neutrophils (%) (Auto) 65.0 % Lymphocytes (%) (Auto) 23.2 % Monocytes (%) (Auto) 10.6 % Eosinophils (%) (Auto) 0.6 % Basophils (%) (Auto) 0.6 % Neutrophils # (Auto) 5.1 TH/MM3 Lymphocytes # (Auto) 1.8 TH/MM3 Monocytes # (Auto) 0.8 TH/MM3 Eosinophils # (Auto) 0.0 TH/MM3 Basophils # (Auto) 0.0 TH/MM3 CBC Comment DIFF FINAL Differential Comment Urine Color LIGHT-YELLOW Urine Turbidity CLEAR Urine pH 6.5 Urine Specific [place] 1.002 Urine Protein NEG mg/dL Urine Glucose (UA) NEG mg/dL Urine Ketones NEG mg/dL Urine Occult Blood NEG Urine Nitrite NEG Urine Bilirubin NEG Urine Urobilinogen LESS THAN 2.0 MG/DL Urine Leukocyte Esterase NEG Urine RBC LESS THAN 1 /hpf Urine WBC 1 /hpf Microscopic Urinalysis Comment CULT NOT INDICATED Sodium Level 142 MEQ/L Potassium Level 3.3 MEQ/L Chloride Level 106 MEQ/L Carbon Dioxide Level 26.5 MEQ/L Anion Gap 10 MEQ/L Blood Urea Nitrogen 4 MG/DL Creatinine 0.74 MG/DL Estimat Glomerular Filtration 108 ML/MIN Rate Random Glucose 87 MG/DL Calcium Level 8.4 MG/DL Total Bilirubin 0.9 MG/DL Aspartate Amino Transf 57 U/L (AST/SGOT) Alanine Aminotransferase 82 U/L (ALT/SGPT) Alkaline Phosphatase 112 U/L Total Protein 7.3 GM/DL Albumin 3.4 GM/DL Lipase 234 U/L Urine Opiates Screen NEG Urine Barbiturates Screen NEG Urine Amphetamines Screen NEG Urine Benzodiazepines Screen NEG Urine Cocaine Screen NEG Urine Cannabinoids Screen NEG Ethyl Alcohol Level 351 MG/DL [facility] Medical Decision Making Medical Screen Exam Complete: Yes Emergency Medical Condition: Yes Medical Record Reviewed: Yes Differential Diagnosis Chronic alcohol abuse. Lower abdominal pain. Urinary tract infection. Prostatitis. Psychiatric symptoms. Suicidal ideation. Narrative Course Patient appears medically stable at time of exam. EKG and chest x-ray ordered. IV access is obtained and labs are obtained including CBC, CMP, lipase, urinalysis, urine drug screen, and serum alcohol level. Patient is given 1000 miles normal saline bolus as well as 100 mg thiamine IV. Patient is given 40 mg pantoprazole IV. Patient is given 25 mg Librium by mouth. Psych screen is ordered. Essentially unremarkable except slightly low potassium at 3.3. EKG showed a fibrillation with rapid ventricular response and this was reviewed with Dr. Mdconald. Patient EKG improved after thousand mL bolus, showing only atrial fibrillation. Patient was given 20 mEq potassium by mouth. Patient was discussed with Dr. Mcdonald, who recommended daily aspirin for his atrial fibrillation, with follow-up with primary care. Patient is medically cleared for psychiatric evaluation. Diagnosis Primary Impression: Medical clearance for psychiatric admission Additional Impressions: Hypokalemia Alcohol abuse with intoxication Atrial arrhythmia Scripts No Active Prescriptions or Reported Meds Condition: Dion Garber Dec 28, 2016 11:02
[2016-12-28] MEDS ORDERED: SODIUM CHLOR 0.9% 1000 ML INJ 1,000 ML IV SCH (11:09)
[2016-12-28] MEDS ORDERED: chlordiazePOXIDE 25 MG CAP PO ONE (11:15)
[2016-12-28] MEDS ORDERED: PANTOPRAZOLE SODIUM 40 MG VIAL IVP ONE (11:15)
[2016-12-28] MEDS ORDERED: SODIUM CHLORIDE 0.9% FLUSH 10 ML FLUSH IV FLUSH PRN (11:15)
[2016-12-28] MEDS ORDERED: THIAMINE INJ 100 MG in SODIUM CHLORIDE 0.9% INJ 100 ML IV ONE (11:15)
[2016-12-28 11:18] VITALS: RESP 18; O2SAT 98
[2016-12-28 11:22] LABS: AUTOMATED NEUTROPHIL # 5.1 TH/MM3 (1.8-7.7); BASOPHIL % 0.6 % (0.0-2.0); EOSINOPHIL % 0.6 % (0.0-4.0); HEMATOCRIT 39.3 % (39.0-51.0); HEMO FLAGS DIFF FINAL; LYMPH % 23.2 % (9.0-44.0); LYMPHOCYTE # 1.8 TH/MM3 (1.0-4.8); MEAN CELL VOLUME 97.6 FL (80.0-100.0); MEAN CORPUSCULAR HEMOGLOBIN 34.6 PG (27.0-34.0); MEAN CORPUSCULAR HGB CONC 35.4 % (32.0-36.0); MONO % 10.6 % (0.0-8.0); PLATELET COUNT 115 TH/MM3 (150-450); RED BLOOD COUNT 4.03 MIL/MM3 (4.50-5.90); RED CELL DISTRIBUTION WIDTH 14.5 % (11.6-17.2); WHITE BLOOD COUNT 7.8 TH/MM3 (4.0-11.0)
[2016-12-28 11:27] LABS: BLOOD, URINE NEG (NEG); GLUCOSE,URINE NEG (NEG); KETONE, URINE NEG (NEG); NITRITE,URINE NEG (NEG); PH, URINE 6.5 (5.0-8.5); URINE COLOR LIGHT-YELLOW (YELLW/STRAW)
[2016-12-28 11:32] LABS: COMMENT (UR) CULT NOT INDICATED; CULTURE IF INDICATED CULT NOT INDICATED
--- NOTE | 2016-12-28 11:42 | RADRPT ---
EXAM DATE/TIME: 12/28/2016 11:22 [facility] COMPARISON: CHEST SINGLE AP, November 16, 2016, 18:38. INDICATIONS : Cough MEDICAL HISTORY : Hepatitis C. Cardiovascular disease Seizures. SURGICAL HISTORY : None. ENCOUNTER: Initial ACUITY: 2 days PAIN SCORE: 0/10 LOCATION: chest FINDINGS: A single view of the chest demonstrates the lungs to be symmetrically aerated without evidence of mas s, infiltrate or effusion. The cardiomediastinal contours are unremarkable. Osseous structures are intact. Nodular densities suspicious for enlarged lymph nodes identified in the right exit left. CONCLUSION: No acute disease. Nodular density right exit left suggesting an enlarged lymph node. John Sagastume MD on December 28, 2016 at 11:39 Board Certified Radiologist. This report was verified electronically.
[2016-12-28 11:50] LABS: ALT (GPT) 82 U/L (12-78); ANION GAP 10 MEQ/L (5-15); AST (GOT) 57 U/L (15-37); BICARBONATE 26.5 MEQ/L (21.0-32.0); BLOOD UREA NITROGEN 4 MG/DL (7-18); CHLORIDE 106 MEQ/L (98-107); GLOMERULAR FILTRATION RATE 108 ML/MIN (>89); POTASSIUM 3.3 MEQ/L (3.5-5.1); SODIUM (NA) 142 MEQ/L (136-145)
[2016-12-28 12:00] VITALS: BP 120/81; PULSE 83; RESP 17; TEMP 97.8; O2SAT 98
[2016-12-28 12:00] LABS: ALKALINE PHOSPHATASE 112 U/L (45-117); TOTAL BILIRUBIN ADULT 0.9 MG/DL (0.2-1.0)
[2016-12-28] MEDS ORDERED: POTASSIUM CHLORIDE 20 MEQ CONTROLLED RELEASE TAB PO ONE (12:00)
[2016-12-28 12:03] LABS: ALCOHOL 351 MG/DL (0-5)
[2016-12-28] MEDS ORDERED: ASPIRIN 81 MG CHEW TAB CHEW ONE (12:15)
--- NOTE | 2016-12-28 12:51 | PD ---
History of Present Illness Chief Complaint: Psychiatric Symptoms Time Seen by Provider: 12:30 Travel History International Travel<30 Days: No Contact w/Intl Traveler<30days: No Known affected area: No Legal Status Legal Status: Gutierres Act Gutierres Act Signed By: History of Present Illness: 61-year-old male well known to this physician and the ED staff in general. Has presented himself repeatedly over the last 2 weeks with vague complaints of "I don't feel good". He has been evaluated multiple times in the physical medicine part of the emergency room. He has been evaluated by psychiatry on multiple occasions as well. He is a multiyear alcoholic who continues to deny drinking but repeatedly comes in with a positive alcohol level. At this point, this physician is working with our [facility] liaison personnel to attempt to get him to a detox/rehabilitation bed in [facility]. This is felt to be the most appropriate disposition for this man. However the patient has repeatedly walked away from alcohol detox and rehabilitation in the past. Finally, this physician does not feel it is appropriate to "give in" to the patient's threats, including suicidal threats. Instead, that would be counter therapeutic and enabling his manipulative behavior. PFSH Past Medical History Atrial Fibrillation: Yes Anxiety: Yes Depression: Yes Heart Rhythm Problems: No Cancer: No Cardiovascular Problems: No High Cholesterol: No Chest Pain: No Congestive Heart Failure: No Cerebrovascular Accident: No Diabetes: No Dialysis: No Diminished Hearing: No Endocrine: No Gastrointestinal Disorders: Yes (CDT colitis) GERD: No Genitourinary: No Hepatitis: Yes (HEP C) Hiatal Hernia: No Heparin Induced Thrombocytopen: No Hypertension: Yes Immune Disorder: No Implanted Vascular Access Dvce: No Kidney Stones: No Musculoskeletal: No Neurologic: No Psychiatric: No Reproductive: No Respiratory: No Immunizations Current: Yes Migraines: No Renal Failure: No Seizures: Yes (RELATED TO ALCOHOL WITHDRAW) Sickle Cell Disease: No Ulcer: No Tetanus Vaccination: < 5 Years Influenza Vaccination: Yes Past Surgical History Abdominal Surgery: No AICD: No Arteriovenous Shunt: No Cardiac Surgery: No Ear Surgery: No Endocrine Surgery: No Eye Surgery: No Genitourinary Surgery: No Gynecologic Surgery: No Insulin Pump: No Joint Replacement: No Neurologic Surgery: No Oral Surgery: Yes Pacemaker: No Thoracic Surgery: No Other Surgery: Yes (UNKNOWN BACK SURGERY) Psychiatric History Psychiatric History Hx Psychiatric Treatment: PATIENT WAS LAST ADMITTED TO [facility] FROM 11/25/15 TO 11/29/15 FOR DEPRESSION associated with alcohol abuse. This physician does not find any significant objectively clinical evidence of steve ana depression. Rather, his problems appear to stem from its ongoing alcohol abuse. History of Inpatient Treatment: Yes Guns or firearms in home: No Social History Hx Alcohol Use: Yes (this am-3 bottles of cooking wine ) Hx Tobacco Use: No (PT DENIES) Hx Substance Use: No (PT DENIES) Substance Use Type: Alcohol, Benzos (Valium,Xanax), Synth Opiates-Pain Pills Other Substances Used: last alcohol 0200 and last heroin 3 days ago Hx of Substance Use Treatment: Yes Allergies-Medications (Allergen,Severity, Reaction): Coded Allergies: Penicillin (Verified Allergy, Intermediate, rash, 12/28/16) Prozac (Verified Allergy, Mild, Rash, 12/28/16) Reported Meds & Prescriptions Reported Meds & Active Scripts Active No Active Prescriptions or Reported Medications Review of Systems Except as stated in HPI: all other systems reviewed are Neg Exam Alert: Yes [place]: Person, Place, Date, Situation Mood: Calm Affect: Restricted Speech: Clear, Logical Eye Contact: Normal Memory Intact: Immediate, Recent, Remote Insight/Judgement Adequate MDM Medical Decision Making Medical Record Reviewed: Yes Assessment/Plan Medical record reviewed and the patient's nurse and this physician discussed his case. We are hoping to get a detox bed in [facility] and transport the patient there. Although the patient continues to be at risk for self-harm, acting out, etc., this is unavoidable and unpredictable at this time as the patient continues to drink alcoholically. Orders Complete Blood Count With Diff (12/28/16 11:04) Comprehensive Metabolic Panel (12/28/16 11:04) Psych Screen (12/28/16 11:04) Drug Screen, Random Urine (12/28/16 11:04) Alcohol (Ethanol) (12/28/16 11:04) Urinalysis - C+S If Indicated (12/28/16 11:09) Iv Access Insert/Monitor (12/28/16 11:09) Ecg Monitoring (12/28/16 11:09) Oximetry (12/28/16 11:09) Pantoprazole Inj (Protonix Inj) (12/28/16 11:15) Sodium Chlor 0.9% 1000 Ml Inj (Ns 1000 M (12/28/16 11:09) Sodium Chloride 0.9% Flush (Ns Flush) (12/28/16 11:15) Electrocardiogram (12/28/16 11:09) Thiamine Inj (Thiamine Inj) (12/28/16 11:15) Chlordiazepoxide (Librium) (12/28/16 11:15) Chest, Single Ap (12/28/16 11:15) Lipase (12/28/16 11:10) Potassium Chloride (Kcl) (12/28/16 12:00) Electrocardiogram (12/28/16 ) Aspirin Chew (Aspirin Chew) (12/28/16 12:15) Results Vital Signs Date Time Temp Pulse Resp B/P Pulse Ox O2 Delivery O2 Flow Rate FiO2 12/28/16 11:18 18 98 Room Air 12/28/16 10:55 83 18 12/28/16 10:53 97.8 86 18 114/78 98 Laboratory Tests Test 12/28/16 11:10 White Blood Count 7.8 Red Blood Count 4.03 Hemoglobin 13.9 Hematocrit 39.3 Mean Corpuscular Volume 97.6 Mean Corpuscular Hemoglobin 34.6 Mean Corpuscular Hemoglobin 35.4 Concent Red Cell Distribution Width 14.5 Platelet Count 115 Mean Platelet Volume 6.5 Neutrophils (%) (Auto) 65.0 Lymphocytes (%) (Auto) 23.2 Monocytes (%) (Auto) 10.6 Eosinophils (%) (Auto) 0.6 Basophils (%) (Auto) 0.6 Neutrophils # (Auto) 5.1 Lymphocytes # (Auto) 1.8 Monocytes # (Auto) 0.8 Eosinophils # (Auto) 0.0 Basophils # (Auto) 0.0 CBC Comment DIFF FINAL Differential Comment Urine Color LIGHT-YELLOW Urine Turbidity CLEAR Urine pH 6.5 Urine Specific [place] 1.002 Urine Protein NEG Urine Glucose (UA) NEG Urine Ketones NEG Urine Occult Blood NEG Urine Nitrite NEG Urine Bilirubin NEG Urine Urobilinogen LESS THAN 2.0 Urine Leukocyte Esterase NEG Urine RBC LESS THAN 1 Urine WBC 1 Microscopic Urinalysis Comment CULT NOT INDICATED Sodium Level 142 Potassium Level 3.3 Chloride Level 106 Carbon Dioxide Level 26.5 Anion Gap 10 Blood Urea Nitrogen 4 Creatinine 0.74 Estimat Glomerular Filtration 108 Rate Random Glucose 87 Calcium Level 8.4 Total Bilirubin 0.9 Aspartate Amino Transf 57 (AST/SGOT) Alanine Aminotransferase 82 (ALT/SGPT) Alkaline Phosphatase 112 Total Protein 7.3 Albumin 3.4 Lipase 234 Urine Opiates Screen NEG Urine Barbiturates Screen NEG Urine Amphetamines Screen NEG Urine Benzodiazepines Screen NEG Urine Cocaine Screen NEG Urine Cannabinoids Screen NEG Ethyl Alcohol Level 351 Diagnosis Primary Impression: Alcohol abuse with intoxication Additional Impressions: Atrial arrhythmia Hypokalemia Prescriptions No Active Prescriptions or Reported Meds Condition: Stable Problem Qualifiers Davie Oconnell MD Dec 28, 2016 12:51
[2016-12-28 15:01] VITALS: BP 118/77; PULSE 89; RESP 17; TEMP 97.8; O2SAT 99
[2016-12-28 17:17] VITALS: BP 118/76; PULSE 78; RESP 16; TEMP 98; O2SAT 99
[2016-12-28] MEDS ORDERED: FLUMAZENIL 0.5 MG/5 ML VIAL IV PUSH PRN (19:15)
[2016-12-28] MEDS ORDERED: LORazepam 1 MG TAB PO PRN (19:15)
[2016-12-28] MEDS ORDERED: LORazepam 2 MG/ML VIAL IV PUSH PRN ×3 (19:15)
[2016-12-28] MEDS ORDERED: LORazepam 2 MG TAB PO PRN (19:15)
[2016-12-28] MEDS: LORazepam 2 MG/ML VIAL IV PUSH PRN (19:16)
[2016-12-28 19:17] VITALS: BP 128/70; PULSE 82; RESP 16; TEMP 98.5; O2SAT 99
[2016-12-29 06:04] VITALS: BP 148/62; PULSE 81; RESP 16; TEMP 98.4; O2SAT 97
[2016-12-29] MEDS: LORazepam 2 MG/ML VIAL IV PUSH PRN (08:06)
[2016-12-29 09:45] VITALS: BP 150/86; PULSE 85; RESP 16; TEMP 98.6; O2SAT 98
--- NOTE | 2016-12-29 09:48 | PD ---
History of Present Illness Chief Complaint: Psychiatric Symptoms Time Seen by Provider: 09:35 Travel History International Travel<30 Days: No Contact w/Intl Traveler<30days: No Known affected area: No Legal Status Legal Status: Gutierres Act Gutierres Act Signed By: History of Present Illness: History of Present Illness HPI 61-year-old male with history of alcohol dependence , well known to the ED with frequent visits to ED who is brought to [facility] under the Gutierres act. The BA alleges that the patient stated that if he does not get treatment for alcohol he will kill HIMSELF.The patient was evaluated by Dr. Oconnell yesterday and he denied any suicdal ideation and continued to request treatment for his alcohol dependence. The BA was lifted with plan to place the patient under a professional certificate and.transfer to a detoxification unit once a bed becomes available. Seen with [facility] special education case manager . The patient is alert and calm. He states ' I don't think I need to go to detox. No suicidal or homicidal ideation. He is advised that he has a bed available today at detox facility and will be transported there under a PC. He accepts current plan. PFSH Past Medical History Atrial Fibrillation: Yes Anxiety: Yes Depression: Yes Heart Rhythm Problems: No Cancer: No Cardiovascular Problems: No High Cholesterol: No Chest Pain: No Congestive Heart Failure: No Cerebrovascular Accident: No Diabetes: No Dialysis: No Diminished Hearing: No Endocrine: No Gastrointestinal Disorders: Yes (CDT colitis) GERD: No Genitourinary: No Hepatitis: Yes (HEP C) Hiatal Hernia: No Heparin Induced Thrombocytopen: No Hypertension: Yes Immune Disorder: No Implanted Vascular Access Dvce: No Kidney Stones: No Musculoskeletal: No Neurologic: No Psychiatric: No Reproductive: No Respiratory: No Immunizations Current: Yes Migraines: No Renal Failure: No Seizures: Yes (RELATED TO ALCOHOL WITHDRAW) Sickle Cell Disease: No Ulcer: No Tetanus Vaccination: < 5 Years Influenza Vaccination: Yes Past Surgical History Abdominal Surgery: No AICD: No Arteriovenous Shunt: No Cardiac Surgery: No Ear Surgery: No Endocrine Surgery: No Eye Surgery: No Genitourinary Surgery: No Gynecologic Surgery: No Insulin Pump: No Joint Replacement: No Neurologic Surgery: No Oral Surgery: Yes Pacemaker: No Thoracic Surgery: No Other Surgery: Yes (UNKNOWN BACK SURGERY) Psychiatric History Psychiatric History Hx Psychiatric Treatment: PATIENT WAS LAST ADMITTED TO [facility] FROM 11/25/15 TO 11/29/15 FOR DEPRESSION associated with alcohol abuse. History of Inpatient Treatment: Yes Guns or firearms in home: No Social History . Lives with although he reports that they are and don' t speak to each other. 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 Hx Alcohol Use: Yes (this am-3 bottles of cooking wine ) Hx Tobacco Use: No (PT DENIES) Hx Substance Use: No (PT DENIES) Substance Use Type: Alcohol, Benzos (Valium,Xanax), Synth Opiates-Pain Pills Other Substances Used: last alcohol 0200 and last heroin 3 days ago Hx of Substance Use Treatment: Yes Family Psychiatric History None Allergies-Medications (Allergen,Severity, Reaction): Coded Allergies: Penicillin (Verified Allergy, Intermediate, rash, 12/28/16) Prozac (Verified Allergy, Mild, Rash, 12/28/16) Reported Meds & Prescriptions Reported Meds & Active Scripts Active No Active Prescriptions or Reported Medications Review of Systems Constitutional: COMPLAINS OF: Weight loss Gastrointestinal: COMPLAINS OF: Abdominal pain, Diarrhea Exam Alert: Yes [place]: Person (ox4) Mood: Calm Affect: Appropriate Speech: Clear, Logical Eye Contact: Normal Memory Intact: Comment (No impairment ) Hallucinations: Other (Negative) Delusions: No Suicidal: Ideation (denies any) Homicidal: Ideation (denies any) Insight/Judgement poor. poor MDM Medical Decision Making Medical Record Reviewed: Yes Assessment/Plan 61-year-old male with history of alcohol dependence , well known to the ED with frequent visits to ED who is brought to [facility] under the Gutierres act. The BA alleges that the patient stated that if he does not get treatment for alcohol he will kill HIMSELF. The patient is at this time denying any suicidality. He is ambivalent about going thru with detox at this point. Lift BA. Patient is placed under professional certificate and will be transported to [facility] detox. Transport to [facility] for substance abuse treatment. Orders Complete Blood Count With Diff (12/28/16 11:04) Comprehensive Metabolic Panel (12/28/16 11:04) Psych Screen (12/28/16 11:04) Drug Screen, Random Urine (12/28/16 11:04) Alcohol (Ethanol) (12/28/16 11:04) Urinalysis - C+S If Indicated (12/28/16 11:09) Iv Access Insert/Monitor (12/28/16 11:09) Ecg Monitoring (12/28/16 11:09) Oximetry (12/28/16 11:09) Pantoprazole Inj (Protonix Inj) (12/28/16 11:15) Sodium Chlor 0.9% 1000 Ml Inj (Ns 1000 M (12/28/16 11:09) Sodium Chloride 0.9% Flush (Ns Flush) (12/28/16 11:15) Electrocardiogram (12/28/16 11:09) Thiamine Inj (Thiamine Inj) (12/28/16 11:15) Chlordiazepoxide (Librium) (12/28/16 11:15) Chest, Single Ap (12/28/16 11:15) Lipase (12/28/16 11:10) Potassium Chloride (Kcl) (12/28/16 12:00) Aspirin Chew (Aspirin Chew) (12/28/16 12:15) Diet Regular Basic (12/28/16 Dinner) Alcohol Withdrawal Asmt-Ciwa Q4HX18 (12/28/16 19:03) Flumazenil Inj (Romazicon Inj) (12/28/16 19:15) Lorazepam (Ativan) (12/28/16 19:15) Lorazepam Inj (Ativan Inj) (12/28/16 19:15) Lorazepam (Ativan) (12/28/16 19:15) Lorazepam Inj (Ativan Inj) (12/28/16 19:15) Lorazepam Inj (Ativan Inj) (12/28/16 19:15) Lorazepam Inj (Ativan Inj) (12/28/16 19:15) Results Vital Signs Date Time Temp Pulse Resp B/P Pulse Ox O2 Delivery O2 Flow Rate FiO2 12/29/16 09:45 98.6 85 16 150/86 98 Room Air 12/29/16 06:04 98.4 81 16 148/62 97 Room Air 12/28/16 19:17 98.5 82 16 128/70 99 Room Air 12/28/16 17:17 98.0 78 16 118/76 99 Room Air 12/28/16 15:01 97.8 89 17 118/77 99 Room Air 12/28/16 12:00 97.8 83 17 120/81 98 Room Air 12/28/16 11:18 18 98 Room Air 12/28/16 10:55 83 18 12/28/16 10:53 97.8 86 18 114/78 98 Laboratory Tests Test 12/28/16 11:10 White Blood Count 7.8 Red Blood Count 4.03 Hemoglobin 13.9 Hematocrit 39.3 Mean Corpuscular Volume 97.6 Mean Corpuscular Hemoglobin 34.6 Mean Corpuscular Hemoglobin 35.4 Concent Red Cell Distribution Width 14.5 Platelet Count 115 Mean Platelet Volume 6.5 Neutrophils (%) (Auto) 65.0 Lymphocytes (%) (Auto) 23.2 Monocytes (%) (Auto) 10.6 Eosinophils (%) (Auto) 0.6 Basophils (%) (Auto) 0.6 Neutrophils # (Auto) 5.1 Lymphocytes # (Auto) 1.8 Monocytes # (Auto) 0.8 Eosinophils # (Auto) 0.0 Basophils # (Auto) 0.0 CBC Comment DIFF FINAL Differential Comment Urine Color LIGHT-YELLOW Urine Turbidity CLEAR Urine pH 6.5 Urine Specific [place] 1.002 Urine Protein NEG Urine Glucose (UA) NEG Urine Ketones NEG Urine Occult Blood NEG Urine Nitrite NEG Urine Bilirubin NEG Urine Urobilinogen LESS THAN 2.0 Urine Leukocyte Esterase NEG Urine RBC LESS THAN 1 Urine WBC 1 Microscopic Urinalysis Comment CULT NOT INDICATED Sodium Level 142 Potassium Level 3.3 Chloride Level 106 Carbon Dioxide Level 26.5 Anion Gap 10 Blood Urea Nitrogen 4 Creatinine 0.74 Estimat Glomerular Filtration 108 Rate Random Glucose 87 Calcium Level 8.4 Total Bilirubin 0.9 Aspartate Amino Transf 57 (AST/SGOT) Alanine Aminotransferase 82 (ALT/SGPT) Alkaline Phosphatase 112 Total Protein 7.3 Albumin 3.4 Lipase 234 Urine Opiates Screen NEG Urine Barbiturates Screen NEG Urine Amphetamines Screen NEG Urine Benzodiazepines Screen NEG Urine Cocaine Screen NEG Urine Cannabinoids Screen NEG Ethyl Alcohol Level 351 Diagnosis Primary Impression: Alcohol dependence with acute alcoholic intoxication Additional Impressions: Alcohol abuse with intoxication Atrial arrhythmia Hypokalemia Psychiatrically Cleared: Yes Med/ Other Pt Specific Info: No Meds Exist/No RX given Prescriptions No Active Prescriptions or Reported Meds Disposition: 65 DISC TO PSYCH CARE FACILITY Condition: Stable Problem Qualifiers Primary Impression: Alcohol dependence with acute alcoholic intoxication Qualified Code: F10.220 - Alcohol dependence with acute alcoholic intoxication without complication Kasey Taylor Dec 29, 2016 09:48
--- NOTE | 2016-12-29 17:07 | EKG ---
Date Performed: 12/28/2016 Time Performed: 11:15:01 PTAGE: 61 years EKG: ATRIAL FIBRILLATION WITH RAPID VENTRICULAR RESPONSE Compared to previous tracing, there's a rhythm change from Sinus rhythm to atrial fibrillation. ABNORMAL RHYTHM ECG PREVIOUS TRACING : 11/30/2016 @ 1728 DOCTOR: Davie Whitney Interpretating Date/Time 12/29/2016 17:05:54
== END 2016-12-29 10:20 ==
LOC: NEPD 10:45
DX: F10.220 Alcohol dependence with intoxication, uncomplicated (principal); E87.6 Hypokalemia; Y90.8 Blood alcohol level of 240 mg/100 ml or more
CPT/HCPCS: 71010; 80053; 80307; 81001; 83690; 85025; 93005; 96365; 96375; 96376; 99285; C9113; J2060; J3411; J7030

== ENCOUNTER 2017-01-02 19:08 | Emergency (ER) | payer SELFPAY ==
[~2017-01-02] VITALS: Ht 170.2 cm; Wt 68.0 kg
[2017-01-02 19:29] VITALS: BP 99/60; PULSE 68; RESP 20; TEMP 98; O2SAT 98
--- NOTE | 2017-01-03 00:52 | PD ---
HPI Chief Complaint: Alcohol/Drug Intoxication Time Seen by Provider: 23:41 Travel History International Travel<30 days: No Contact w/Intl Traveler<30days: No Traveled to known affect area: No History of Present Illness HPI Patient's 61. He drinks liquor today as he does most days. Some days he drinks a quart. He states he is going to the [place] on Sunday, 5 days from today. He complains of diarrhea for one month. He has no fever or vomiting. He denies toxic alcohol ingestion. PFSH Past Medical History Atrial Fibrillation: Yes Anxiety: Yes Depression: Yes Heart Rhythm Problems: No Cancer: No Cardiovascular Problems: No High Cholesterol: No Chest Pain: No Congestive Heart Failure: No Cerebrovascular Accident: No Diabetes: No Dialysis: No Diminished Hearing: No Endocrine: No Gastrointestinal Disorders: Yes (CDT colitis) GERD: No Genitourinary: No Hepatitis: Yes (HEP C) Hiatal Hernia: No Heparin Induced Thrombocytopen: No Hypertension: Yes Immune Disorder: No Implanted Vascular Access Dvce: No Kidney Stones: No Musculoskeletal: No Neurologic: No Psychiatric: No Reproductive: No Respiratory: No Immunizations Current: Yes Migraines: No Renal Failure: No Seizures: Yes (RELATED TO ALCOHOL WITHDRAW) Sickle Cell Disease: No Ulcer: No Past Surgical History Abdominal Surgery: No AICD: No Arteriovenous Shunt: No Cardiac Surgery: No Ear Surgery: No Endocrine Surgery: No Eye Surgery: No Genitourinary Surgery: No Gynecologic Surgery: No Insulin Pump: No Joint Replacement: No Neurologic Surgery: No Oral Surgery: Yes Pacemaker: No Thoracic Surgery: No Other Surgery: Yes (UNKNOWN BACK SURGERY) Social History Alcohol Use: Yes (daily vodka) Tobacco Use: No (PT DENIES) Substance Use: No (PT DENIES) Allergies-Medications (Allergen,Severity, Reaction): Coded Allergies: penicillin G (Unverified Allergy, Intermediate, rash, 01/02/17) fluoxetine (Unverified Allergy, Mild, Rash, 01/02/17) Reported Meds & Prescriptions Reported Meds & Active Scripts Active No Active Prescriptions or Reported Medications Review of Systems Except as stated in HPI: all other systems reviewed are Neg Physical Exam Narrative GENERAL: 61-year-old male no acute distress asleep in the room SKIN: Warm and dry. HEAD: Atraumatic. Normocephalic. EYES: Pupils equal and round. No scleral icterus. No injection or drainage. ENT: No nasal bleeding or discharge. Mucous membranes pink and moist. NECK: Trachea midline. No JVD. CARDIOVASCULAR: Regular rate and rhythm. RESPIRATORY: No accessory muscle use. Clear to auscultation. Breath sounds equal bilaterally. GASTROINTESTINAL: Abdomen soft, non-tender, nondistended. Hepatic and splenic margins not palpable. MUSCULOSKELETAL: Extremities without clubbing, cyanosis, or edema. No obvious deformities. NEUROLOGICAL: Awake and alert. No obvious cranial nerve deficits. Motor grossly within normal limits. Five out of 5 muscle strength in the arms and legs. Normal speech. PSYCHIATRIC: Appropriate mood and affect; insight and judgment normal. Data Data Last Documented VS Vital Signs Date Time Temp Pulse Resp B/P Pulse Ox O2 Delivery O2 Flow Rate FiO2 01/02/17 19:29 98.0 68 20 99/60 98 Vital signs reviewed MDM Medical Decision Making Medical Screen Exam Complete: Yes Emergency Medical Condition: Yes Medical Record Reviewed: Yes Differential Diagnosis Alcoholism, alcohol withdrawal syndrome, delirium tremens, chronic diarrhea, malingering Narrative Course Patient will be observed here. He is medically clear and upon demonstration of a normal gait coupled with normal speech memory and mentation discharge will be appropriate. Diagnosis Primary Impression: Alcoholism Additional Impression: Diarrhea Qualified Code: R19.7 - Diarrhea, unspecified type Referrals: [facility] 2 days Additional Instructions: You have a choice when it comes to health care, and we are glad that you chose [facility]. Hopefully, we have met your expectations on today's visit. You are welcome to return to [facility] at any time, as we are committed to meeting the health care needs of our community. Med/Other Pt SpecificInfo: No Change to Meds Scripts No Active Prescriptions or Reported Meds Disposition: DISCHARGE HOME Condition: Zackary Del Real MD Jan 03, 2017 00:52
[2017-01-04] MEDS ORDERED: LORA-475 PO (11:29)
== END 2017-01-03 06:49 | disposition home or self-care (01) ==
LOC: NEPD 19:08
DX: F10.20 Alcohol dependence, uncomplicated (principal); R19.7 Diarrhea, unspecified; F41.9 Anxiety disorder, unspecified; I48.91 Unspecified atrial fibrillation
CPT/HCPCS: 99283

== ENCOUNTER 2017-01-04 10:28 | Emergency (ER) | payer OTHER ==
[~2017-01-04] VITALS: Ht 182.9 cm; Wt 76.0 kg
[2017-01-04 11:27] VITALS: BP 125/73; PULSE 80; RESP 16; TEMP 97.9; O2SAT 99
[2017-01-04] MEDS ORDERED: LORA-475 PO (11:29)
--- NOTE | 2017-01-04 11:42 | PD ---
HPI Chief Complaint: Psychiatric Symptoms Time Seen by Provider: 11:36 Travel History International Travel<30 days: No Contact w/Intl Traveler<30days: No Traveled to known affect area: No History of Present Illness HPI 61 year old male who is well known to the emergency department for alcoholism presents to the emergency department under Gutierres Act by local police for suicidal ideation. According to the Gutierres Act, the patient stated he wanted to walk into traffic to kill himself. He also believes he is withdrawing from alcohol. Patient reports feeling shaky. Patient states he drank a bottle of cooking wine yesterday, but has not drank today. Patient is asking for something to eat. He denies suicidal ideation to me. Patient denies any chronic medical problems or taking any prescribed medications. PFSH Past Medical History Atrial Fibrillation: Yes Anxiety: Yes Depression: Yes Heart Rhythm Problems: No Cancer: No Cardiovascular Problems: No High Cholesterol: No Chest Pain: No Congestive Heart Failure: No Cerebrovascular Accident: No Diabetes: No Dialysis: No Diminished Hearing: No Endocrine: No Gastrointestinal Disorders: Yes (CDT colitis) GERD: No Genitourinary: No Hepatitis: Yes (HEP C) Hiatal Hernia: No Heparin Induced Thrombocytopen: No Hypertension: Yes Immune Disorder: No Implanted Vascular Access Dvce: No Kidney Stones: No Musculoskeletal: No Neurologic: No Psychiatric: No Reproductive: No Respiratory: No Immunizations Current: Yes Migraines: No Renal Failure: No Seizures: Yes (RELATED TO ALCOHOL WITHDRAW) Sickle Cell Disease: No Ulcer: No Past Surgical History Abdominal Surgery: No AICD: No Arteriovenous Shunt: No Cardiac Surgery: No Ear Surgery: No Endocrine Surgery: No Eye Surgery: No Genitourinary Surgery: No Gynecologic Surgery: No Insulin Pump: No Joint Replacement: No Neurologic Surgery: No Oral Surgery: Yes Pacemaker: No Thoracic Surgery: No Other Surgery: Yes (UNKNOWN BACK SURGERY) Social History Alcohol Use: Yes (daily vodka) Tobacco Use: No (PT DENIES) Substance Use: No (PT DENIES) Allergies-Medications (Allergen,Severity, Reaction): Coded Allergies: No Known Allergies (Unverified , 01/04/17) Reported Meds & Prescriptions Reported Meds & Active Scripts Active Reported Ativan (Lorazepam) 2 Mg Tab 2 Mg PO Q6H PRN Review of Systems Except as stated in HPI: all other systems reviewed are Neg Physical Exam Narrative GENERAL: Disheveled male patient, afebrile. Patient is ambulatory. SKIN: Focused skin assessment warm/dry. HEAD: Normocephalic. Atraumatic EYES: No scleral icterus. No injection or drainage. NECK: Supple, trachea midline. No JVD or lymphadenopathy. CARDIOVASCULAR: Regular rate and rhythm without murmurs, gallops, or rubs. RESPIRATORY: Breath sounds equal bilaterally. No accessory muscle use. Lungs sounds are clear to auscultation. GASTROINTESTINAL: Abdomen soft, non-tender, nondistended. MUSCULOSKELETAL: No cyanosis, or edema. PSYCHIATRIC: No delusional thought processes. No hallucinations. Data Data Last Documented VS Vital Signs Date Time Temp Pulse Resp B/P Pulse Ox O2 Delivery O2 Flow Rate FiO2 01/04/17 11:40 78 18 01/04/17 11:27 97.9 125/73 99 Orders Complete Blood Count With Diff (01/04/17 11:35) Comprehensive Metabolic Panel (01/04/17 11:35) Psych Screen (01/04/17 11:35) Drug Screen, Random Urine (01/04/17 11:35) Alcohol (Ethanol) (01/04/17 11:35) Alcohol Withdrawal Asmt-Ciwa Q4HX18 (01/04/17 11:35) ^ Seizure Precautions (01/04/17 11:35) Consult Cm-Etoh Abuse Dc Plan (01/04/17 ) Lorazepam (Ativan) (01/04/17 11:45) Lorazepam Inj (Ativan Inj) (01/04/17 11:45) Lorazepam (Ativan) (01/04/17 11:45) Lorazepam Inj (Ativan Inj) (01/04/17 11:45) Lorazepam Inj (Ativan Inj) (01/04/17 11:45) Lorazepam Inj (Ativan Inj) (01/04/17 11:45) Labs Laboratory Tests Test 01/04/17 11:40 White Blood Count 10.8 TH/MM3 Red Blood Count 3.76 MIL/MM3 Hemoglobin 12.8 GM/DL Hematocrit 38.0 % Mean Corpuscular Volume 101.0 FL Mean Corpuscular Hemoglobin 34.0 PG Mean Corpuscular Hemoglobin 33.6 % Concent Red Cell Distribution Width 15.3 % Platelet Count 162 TH/MM3 Mean Platelet Volume 5.5 FL Neutrophils (%) (Auto) 68.9 % Lymphocytes (%) (Auto) 20.5 % Monocytes (%) (Auto) 9.3 % Eosinophils (%) (Auto) 0.3 % Basophils (%) (Auto) 1.0 % Neutrophils # (Auto) 7.5 TH/MM3 Lymphocytes # (Auto) 2.2 TH/MM3 Monocytes # (Auto) 1.0 TH/MM3 Eosinophils # (Auto) 0.0 TH/MM3 Basophils # (Auto) 0.1 TH/MM3 CBC Comment DIFF FINAL Differential Comment Sodium Level 145 MEQ/L Potassium Level 3.6 MEQ/L Chloride Level 112 MEQ/L Carbon Dioxide Level 25.1 MEQ/L Anion Gap 8 MEQ/L Blood Urea Nitrogen 8 MG/DL Creatinine 0.80 MG/DL Estimat Glomerular Filtration 99 ML/MIN Rate Random Glucose 83 MG/DL Calcium Level 7.7 MG/DL Total Bilirubin 0.5 MG/DL Aspartate Amino Transf 52 U/L (AST/SGOT) Alanine Aminotransferase 60 U/L (ALT/SGPT) Alkaline Phosphatase 99 U/L Total Protein 7.2 GM/DL Albumin 3.4 GM/DL Urine Opiates Screen NEG Urine Barbiturates Screen NEG Urine Amphetamines Screen NEG Urine Benzodiazepines Screen POS Urine Cocaine Screen NEG Urine Cannabinoids Screen NEG Ethyl Alcohol Level 370 MG/DL MDM Medical Decision Making Medical Screen Exam Complete: Yes Emergency Medical Condition: Yes Medical Record Reviewed: Yes Differential Diagnosis Alcohol intoxication versus alcohol withdrawal versus alcohol induced mood disorder versus suicidal ideation Narrative Course 61-year-old male presents to the emergency department under Gutierres act by local police. According the [employer] act, he stated he wanted to walk into traffic. He denies any suicidal ideation me at this time. CBC, CMP, alcohol level, urine drug screen are ordered and pending. [facility] protocol is initiated. CBC shows no acute abnormality. CMP shows no acute abnormality. Alcohol level is 370. UDS is positive for benzodiazepines. Patient is medically cleared for psychiatric screening and disposition. Mental health screening discussed with the patient. Psychiatric screen ordered. Diagnosis Primary Impression: Alcohol abuse Additional Instructions: Patient is medically cleared for psychiatric screening and disposition. Condition: Stable Luciana Sellers JEVON Jan 04, 2017 11:42
[2017-01-04] MEDS ORDERED: LORazepam 1 MG TAB PO PRN (11:45)
[2017-01-04] MEDS ORDERED: LORazepam 2 MG/ML VIAL IV PUSH PRN ×4 (11:45)
[2017-01-04] MEDS ORDERED: LORazepam 2 MG TAB PO PRN (11:45)
[2017-01-04 12:00] LABS: AUTOMATED NEUTROPHIL # 7.5 TH/MM3 (1.8-7.7); BASOPHIL # 0.1 TH/MM3 (0-0.2); EOSINOPHIL % 0.3 % (0.0-4.0); HEMO FLAGS DIFF FINAL; LYMPH % 20.5 % (9.0-44.0); LYMPHOCYTE # 2.2 TH/MM3 (1.0-4.8); MEAN CORPUSCULAR HGB CONC 33.6 % (32.0-36.0); MONO % 9.3 % (0.0-8.0); NEUT % 68.9 % (16.0-70.0); PLATELET COUNT 162 TH/MM3 (150-450); RED BLOOD COUNT 3.76 MIL/MM3 (4.50-5.90); RED CELL DISTRIBUTION WIDTH 15.3 % (11.6-17.2); WHITE BLOOD COUNT 10.8 TH/MM3 (4.0-11.0)
[2017-01-04 12:15] LABS: ALT (GPT) 60 U/L (12-78); ANION GAP 8 MEQ/L (5-15); AST (GOT) 52 U/L (15-37); BICARBONATE 25.1 MEQ/L (21.0-32.0); BLOOD UREA NITROGEN 8 MG/DL (7-18); CHLORIDE 112 MEQ/L (98-107); GLOMERULAR FILTRATION RATE 99 ML/MIN (>89); POTASSIUM 3.6 MEQ/L (3.5-5.1); SODIUM (NA) 145 MEQ/L (136-145)
[2017-01-04 12:20] LABS: ALKALINE PHOSPHATASE 99 U/L (45-117); TOTAL BILIRUBIN ADULT 0.5 MG/DL (0.2-1.0)
[2017-01-04 12:21] LABS: ALCOHOL 370 MG/DL (0-5)
[2017-01-04 13:00] VITALS: BP 122/78; PULSE 86; RESP 16; TEMP 97.8; O2SAT 99
[2017-01-04 14:00] VITALS: BP 122/78; TEMP 97.8
--- NOTE | 2017-01-04 15:03 | PD ---
History of Present Illness Chief Complaint: Psychiatric Symptoms Time Seen by Provider: 13:30 Travel History International Travel<30 Days: No Contact w/Intl Traveler<30days: No Known affected area: No Legal Status Legal Status: Gutierres Act Gutierres Act Signed By: History of Present Illness: 61-year-old male who is very well known to this physician. Patient has been to this facility multiple occasions even in the last several months. Patient drinks alcoholically and does not truly wish treatment for it. He makes suicidal statements but is not truly suicidal. At this time he denies suicidal or homicidal ideation, plan or intent. Cognition is intact and no psychosis. Verbally shlomo for safety. PFSH Past Medical History Atrial Fibrillation: Yes Anxiety: Yes Depression: Yes Heart Rhythm Problems: No Cancer: No Cardiovascular Problems: No High Cholesterol: No Chest Pain: No Congestive Heart Failure: No Cerebrovascular Accident: No Diabetes: No Dialysis: No Diminished Hearing: No Endocrine: No Gastrointestinal Disorders: Yes (CDT colitis) GERD: No Genitourinary: No Hepatitis: Yes (HEP C) Hiatal Hernia: No Heparin Induced Thrombocytopen: No Hypertension: Yes Immune Disorder: No Implanted Vascular Access Dvce: No Kidney Stones: No Musculoskeletal: No Neurologic: No Psychiatric: No Reproductive: No Respiratory: No Immunizations Current: Yes Migraines: No Renal Failure: No Seizures: Yes (RELATED TO ALCOHOL WITHDRAW) Sickle Cell Disease: No Ulcer: No Tetanus Vaccination: < 5 Years Influenza Vaccination: Yes Past Surgical History Abdominal Surgery: No AICD: No Arteriovenous Shunt: No Cardiac Surgery: No Ear Surgery: No Endocrine Surgery: No Eye Surgery: No Genitourinary Surgery: No Gynecologic Surgery: No Insulin Pump: No Joint Replacement: No Neurologic Surgery: No Oral Surgery: Yes Pacemaker: No Thoracic Surgery: No Other Surgery: Yes (UNKNOWN BACK SURGERY) Psychiatric History Psychiatric History Hx Psychiatric Treatment: PATIENT WAS LAST ADMITTED TO [facility] FROM 11/25/15 TO 11/29/15 FOR DEPRESSION associated with alcohol abuse. History of Inpatient Treatment: Yes Guns or firearms in home: No Social History Hx Alcohol Use: Yes (daily vodka) Hx Tobacco Use: No (PT DENIES) Hx Substance Use: No (PT DENIES) Substance Use Type: Alcohol, Benzos (Valium,Xanax), Synth Opiates-Pain Pills Other Substances Used: last alcohol 0200 and last heroin 3 days ago Hx of Substance Use Treatment: Yes Allergies-Medications (Allergen,Severity, Reaction): Coded Allergies: No Known Allergies (Unverified , 01/04/17) Reported Meds & Prescriptions Reported Meds & Active Scripts Active Reported Ativan (Lorazepam) 2 Mg Tab 2 Mg PO Q6H PRN Review of Systems Except as stated in HPI: all other systems reviewed are Neg Exam Alert: Yes [place]: Person, Place, Date, Situation Affect: Appropriate Speech: Clear, Logical Eye Contact: Normal Memory Intact: Immediate, Recent, Remote Delusions: No Insight/Judgement Adequate MDM Medical Decision Making Medical Record Reviewed: Yes Assessment/Plan This physician reviewed the medical record and spoke with the patient's nurse. Patient's Gutierres act being lifted and he is being discharged. Referred to [facility] for alcoholism. Orders Complete Blood Count With Diff (01/04/17 11:35) Comprehensive Metabolic Panel (01/04/17 11:35) Psych Screen (01/04/17 11:35) Drug Screen, Random Urine (01/04/17 11:35) Alcohol (Ethanol) (01/04/17 11:35) Alcohol Withdrawal Asmt-Ciwa [id number] (01/04/17 11:35) ^ Seizure Precautions (01/04/17 11:35) Consult Cm-Etoh Abuse Dc Plan (01/04/17 ) Lorazepam (Ativan) (01/04/17 11:45) Lorazepam Inj (Ativan Inj) (01/04/17 11:45) Lorazepam (Ativan) (01/04/17 11:45) Lorazepam Inj (Ativan Inj) (01/04/17 11:45) Lorazepam Inj (Ativan Inj) (01/04/17 11:45) Lorazepam Inj (Ativan Inj) (01/04/17 11:45) Results Vital Signs Date Time Temp Pulse Resp B/P Pulse Ox O2 Delivery O2 Flow Rate FiO2 01/04/17 13:00 97.8 86 16 122/78 99 Room Air 01/04/17 11:40 78 18 01/04/17 11:27 97.9 80 16 125/73 99 Laboratory Tests Test 01/04/17 11:40 White Blood Count 10.8 Red Blood Count 3.76 Hemoglobin 12.8 Hematocrit 38.0 Mean Corpuscular Volume 101.0 Mean Corpuscular Hemoglobin 34.0 Mean Corpuscular Hemoglobin 33.6 Concent Red Cell Distribution Width 15.3 Platelet Count 162 Mean Platelet Volume 5.5 Neutrophils (%) (Auto) 68.9 Lymphocytes (%) (Auto) 20.5 Monocytes (%) (Auto) 9.3 Eosinophils (%) (Auto) 0.3 Basophils (%) (Auto) 1.0 Neutrophils # (Auto) 7.5 Lymphocytes # (Auto) 2.2 Monocytes # (Auto) 1.0 Eosinophils # (Auto) 0.0 Basophils # (Auto) 0.1 CBC Comment DIFF FINAL Differential Comment Sodium Level 145 Potassium Level 3.6 Chloride Level 112 Carbon Dioxide Level 25.1 Anion Gap 8 Blood Urea Nitrogen 8 Creatinine 0.80 Estimat Glomerular Filtration 99 Rate Random Glucose 83 Calcium Level 7.7 Total Bilirubin 0.5 Aspartate Amino Transf 52 (AST/SGOT) Alanine Aminotransferase 60 (ALT/SGPT) Alkaline Phosphatase 99 Total Protein 7.2 Albumin 3.4 Urine Opiates Screen NEG Urine Barbiturates Screen NEG Urine Amphetamines Screen NEG Urine Benzodiazepines Screen POS Urine Cocaine Screen NEG Urine Cannabinoids Screen NEG Ethyl Alcohol Level 370 Diagnosis Primary Impression: Alcohol abuse Departure Forms: Work Release, Enter return to work date: Jan 06, 2017 Tests/Procedures Patient Instructions: General Instructions, Abuse of Alcohol (ED), Alcohol Dependence (ED) Additional Instructions: Patient is medically cleared for psychiatric screening and disposition. Condition: Stable Davie Oconnell MD Jan 04, 2017 15:03
== END 2017-01-04 14:18 | disposition home or self-care (01) ==
LOC: NEPD 10:28
DX: F10.10 Alcohol abuse, uncomplicated (principal); I48.91 Unspecified atrial fibrillation; F41.9 Anxiety disorder, unspecified; F32.9 Major depressive disorder, single episode, unspecified; B19.20 Unspecified viral hepatitis C without hepatic coma; I10 Essential (primary) hypertension; Z79.899 Other long term (current) drug therapy
CPT/HCPCS: 80053; 80307; 85025; 96374; 99284; J2060

== ENCOUNTER 2017-01-04 14:45 | Emergency (ER) | payer SELFPAY ==
[~2017-01-04] VITALS: Ht 182.9 cm; Wt 72.0 kg
[~2017-01-04 14:45] MED LIST changes: -CHLO10CA5 PO; +LORA-475 PO; -METR-1 PO
[2017-01-04 14:47] VITALS: BP 115/67; PULSE 82; RESP 16; TEMP 98.3; O2SAT 99
--- NOTE | 2017-01-04 14:55 | PD ---
Physical Exam Date Seen by Provider: Jan 04, 2017 Time Seen by Provider: 14:53 Narrative 61 YOWM JUST D/C 2 HRS AGO RETURNS C/O PALPITATIONS. H/O ALCOHOL ABUSE VS REVIEWED WAITING FOR BED PLACEMENT Data Data Last Documented VS Vital Signs Date Time Temp Pulse Resp B/P Pulse Ox O2 Delivery O2 Flow Rate FiO2 01/04/17 14:47 98.3 82 16 115/67 99 MDM Supervised Visit with DIANNE: Devon Coffman Jan 04, 2017 14:55
--- NOTE | 2017-01-05 14:58 | EKG ---
Date Performed: 01/04/2017 Time Performed: 14:58:57 PTAGE: 61 years EKG: Sinus rhythm NORMAL ECG PREVIOUS TRACING : 12/28/2016 11.15 Since previous tracing, no significant change noted DOCTOR: Dwight Mayorga Interpretating Date/Time 01/05/2017 14:56:00
== END 2017-01-04 17:48 | disposition left against medical advice (07) ==
LOC: NED 14:45
DX: R00.2 Palpitations (principal); Z53.21 Procedure and treatment not carried out due to patient leaving prior to being seen by health care provider
CPT/HCPCS: 93005; 99283

== ENCOUNTER 2017-01-04 20:36 | Emergency (ER) | payer SELFPAY ==
[~2017-01-04] VITALS: Ht 188 cm; Wt 77.2 kg
[2017-01-04] MEDS ORDERED: SODIUM CHLOR 0.9% 1000 ML INJ 1,000 ML IV SCH (20:52)
[2017-01-04 21:00] VITALS: BP_SYST 129; BP_SYST 143; BP_DIAS 79; BP_DIAS 81; PULSE 62; PULSE 91; RESP 16; TEMP 98.7; O2SAT 100; O2SAT 97
--- NOTE | 2017-01-04 21:04 | PD ---
HPI Chief Complaint: Chest pain Time Seen by Provider: 20:59 Travel History International Travel<30 days: No Contact w/Intl Traveler<30days: No Traveled to known affect area: No History of Present Illness HPI 61- year old male with a PMHx of Hepatitis C brought to the ED by [facility] complaining of chest pain. The patient reports he had chest pain for the past 3 months, he denies any associated shortness of breath. He states his chest pain is worse with walking and has no radiation. The patient reports that he drinks alcohol, with his last drink this morning. He is concerned that he might get delirium tremens which is why he makes sure to continue to drink so he does not get them. En route to the hospital the patient received 325 mg of ASA and 1 nitroglycerin. The patient reports that his chest pain has improved. He reports that he is having diarrhea, but denies any nausea or vomiting. Of note patient has been here 3 times today. Patient was seen here originally for a Gutierres act and alcohol intoxication. Patient is a frequent visitor to the ER secondary to alcohol-related complaints. PFSH Past Medical History Atrial Fibrillation: Yes Anxiety: Yes Depression: Yes Heart Rhythm Problems: No Cancer: No Cardiovascular Problems: No High Cholesterol: No Chest Pain: No Congestive Heart Failure: No Cerebrovascular Accident: No Diabetes: No Dialysis: No Diminished Hearing: No Endocrine: No Gastrointestinal Disorders: Yes (CDT colitis) GERD: No Genitourinary: No Hepatitis: Yes (HEP C) Hiatal Hernia: No Heparin Induced Thrombocytopen: No Hypertension: Yes Immune Disorder: No Implanted Vascular Access Dvce: No Kidney Stones: No Musculoskeletal: No Neurologic: No Psychiatric: No Reproductive: No Respiratory: No Immunizations Current: Yes Migraines: No Renal Failure: No Seizures: Yes (RELATED TO ALCOHOL WITHDRAW) Sickle Cell Disease: No Ulcer: No Past Surgical History Abdominal Surgery: No AICD: No Arteriovenous Shunt: No Cardiac Surgery: No Ear Surgery: No Endocrine Surgery: No Eye Surgery: No Genitourinary Surgery: No Gynecologic Surgery: No Insulin Pump: No Joint Replacement: No Neurologic Surgery: No Oral Surgery: Yes Pacemaker: No Thoracic Surgery: No Other Surgery: Yes (UNKNOWN BACK SURGERY) Social History Alcohol Use: Yes (daily vodka) Tobacco Use: No (PT DENIES) Substance Use: No (PT DENIES) Allergies-Medications (Allergen,Severity, Reaction): Coded Allergies: No Known Allergies (Unverified , 01/04/17) Reported Meds & Prescriptions Reported Meds & Active Scripts Active Reported Ativan (Lorazepam) 2 Mg Tab 2 Mg PO Q6H PRN Review of Systems ROS Limitations: Intoxication General / Constitutional: No: Fever, Chills, Weight Gain, Weight Loss, Other Eyes: No: Diploplia, Blurred Vision, Photophobia, Drainage, Redness, Foreign Body Sensation, Pain, Tearing, Blind Spots, Visual changes, Blindness, Other HENT: No: Headaches, Vertigo, Lightheadedness, Sore Throat, Rhinitis, Rhinorrhea, Congestion, Nosebleed, Neck Stiffness, Neck Pain, Masses, Gingival Bleeding, Dental Difficulties, Ear Discharge, Earache, Other Cardiovascular: Positive: Chest Pain or Discomfort, No: Palpitations, Irregular Rhythm, Tachycardia, Diaphoresis, Syncope, Dyspnea on exertion, Varicosities, Edema, Cyanosis, Varicosities, Phlebitis, Claudication, Other Respiratory: No: Cough, Shortness of Breath, Wheezing, Sneezing, Orthopnea, Hemoptysis, Stridor, Night Sweats, Pleuritic Pain, Other Gastrointestinal: Positive: Diarrhea, No: Nausea, Vomiting, Abdominal Pain, Hematemesis, Hematochezia, Constipation, Changes in Bowel Habits, Indigestion, Dysphagia, Loss of Appetite, Other Genitourinary: No: Urgency, Frequency, Dysuria, Nocturia, Hematuria, Decreased Urinary Output, Oliguria, Hesitancy, Dribbling, Incontinence, Pelvic Pain, Flank Pain, Dyspareunia, Discharge, Dysmenorrhea, Menorrhagia, Metorrhagia, Vaginal Bleeding, Other Musculoskeletal: No: Myalgias, Arthralgias, Limited ROM, Weakness, Cramping, Edema, Pain, Atrophy, Other Skin: No Rash, No Itching, No Dryness, No Lumps, No Hives, No Change in Pigmentation, No Change in nails, No Alopecia, No Lesions, No Breast Lumps, No Breast Tenderness, No Breast Swelling, No Other Neurologic: No: Weakness, Dizziness, Syncope, Focal Abnormalities, Coordination Problem, Tremor, Ataxia, Headache, Change in Mentation, Slurred Speech, Paresthesia, Incontinence, Seizures, Sensory Disturbance, Other Psychiatric: Positive: Substance Abuse, No: Anxiety, Depression, Suicidal Ideations, Disorder of Thought, Mood Disorder, Homicidal Ideation, Other Endocrine: No: Heat Intolerance, Cold Intolerance, Polyuria, Polydipsia, Other Hematologic/Lymphatic: No: Easy Bruising, Lymph Node Enlargement, Other Physical Exam Exam Limitations: Intoxication Narrative GENERAL: SKIN: Warm and dry. HEAD: Atraumatic. Normocephalic. EYES: Pupils equal and round. No scleral icterus. No injection or drainage. ENT: No nasal bleeding or discharge. Mucous membranes pink and moist. Tongue is midline. No uvula deviation. NECK: Trachea midline. No JVD. CARDIOVASCULAR: Regular rate and rhythm. No S3, S4, or murmurs. RESPIRATORY: No accessory muscle use. Clear to auscultation. Breath sounds equal bilaterally. No wheezes, rales, or rhonchi. GASTROINTESTINAL: Abdomen soft, non-tender, nondistended. Hepatic and splenic margins not palpable. MUSCULOSKELETAL: Extremities without clubbing, cyanosis, or edema. No obvious deformities. Full range of motion of the upper and lower extremities bilaterally. 2+ pulses bilaterally. NEUROLOGICAL: Awake and alert. No obvious cranial nerve deficits. Motor grossly within normal limits. Five out of 5 muscle strength in the arms and legs. Normal speech. PSYCHIATRIC: Appropriate mood and affect; insight and judgment normal. Data Data Last Documented VS Vital Signs Date Time Temp Pulse Resp B/P Pulse Ox O2 Delivery O2 Flow Rate FiO2 01/04/17 22:00 60 16 150/80 97 01/04/17 21:30 Room Air 01/04/17 21:07 2 01/04/17 21:00 98.7 Orders Electrocardiogram (01/04/17 20:52) Basic Metabolic Panel (Bmp) (01/04/17 20:52) Ckmb (Isoenzyme) Profile (01/04/17 20:52) Complete Blood Count With Diff (01/04/17 20:52) Magnesium (Mg) (01/04/17 20:52) Troponin I (01/04/17 20:52) Lipase (01/04/17 20:52) Chest, Single Ap (01/04/17 20:52) Ecg Monitoring (01/04/17 20:52) Bilateral Bp Monitoring (01/04/17 20:52) Iv Access Insert/Monitor (01/04/17 20:52) Oximetry (01/04/17 20:52) Oxygen Administration (01/04/17 20:52) Sodium Chlor 0.9% 1000 Ml Inj (Ns 1000 M (01/04/17 20:52) Alcohol (Ethanol) (01/04/17 20:55) Lorazepam Inj (Ativan Inj) (01/04/17 21:15) Alcohol Withdrawal Asmt-Ciwa ONCE (01/04/17 22:13) Ondansetron Inj (Zofran Inj) (01/04/17 22:15) Flumazenil Inj (Romazicon Inj) (01/04/17 22:15) Lorazepam (Ativan) (01/04/17 22:15) Lorazepam Inj (Ativan Inj) (01/04/17 22:15) Lorazepam (Ativan) (01/04/17 22:15) Lorazepam Inj (Ativan Inj) (01/04/17 22:15) Lorazepam Inj (Ativan Inj) (01/04/17 22:15) Lorazepam Inj (Ativan Inj) (01/04/17 22:15) Labs Laboratory Tests Test 01/04/17 20:45 White Blood Count 7.6 TH/MM3 Red Blood Count 3.53 MIL/MM3 Hemoglobin 11.9 GM/DL Hematocrit 35.2 % Mean Corpuscular Volume 99.8 FL Mean Corpuscular Hemoglobin 33.8 PG Mean Corpuscular Hemoglobin 33.9 % Concent Red Cell Distribution Width 14.8 % Platelet Count 137 TH/MM3 Mean Platelet Volume 6.0 FL Neutrophils (%) (Auto) 51.1 % Lymphocytes (%) (Auto) 33.7 % Monocytes (%) (Auto) 13.3 % Eosinophils (%) (Auto) 0.7 % Basophils (%) (Auto) 1.2 % Neutrophils # (Auto) 3.9 TH/MM3 Lymphocytes # (Auto) 2.5 TH/MM3 Monocytes # (Auto) 1.0 TH/MM3 Eosinophils # (Auto) 0.1 TH/MM3 Basophils # (Auto) 0.1 TH/MM3 CBC Comment DIFF FINAL Differential Comment Sodium Level 140 MEQ/L Potassium Level 3.2 MEQ/L Chloride Level 108 MEQ/L Carbon Dioxide Level 22.3 MEQ/L Anion Gap 10 MEQ/L Blood Urea Nitrogen 7 MG/DL Creatinine 0.82 MG/DL Estimat Glomerular Filtration 96 ML/MIN Rate Random Glucose 158 MG/DL Calcium Level 7.7 MG/DL Magnesium Level 1.7 MG/DL Total Creatine Kinase 61 U/L Troponin I LESS THAN 0.02 NG/ML Lipase 496 U/L Ethyl Alcohol Level 395 MG/DL MDM Medical Decision Making Medical Screen Exam Complete: Yes Emergency Medical Condition: Yes Medical Record Reviewed: Yes Interpretation(s) CBC & BMP Diagram 01/04/17 20:45 Last Impressions Chest X-Ray 01/04/172051 Signed Impressions: Service Date/Time: December 21:05 - CONCLUSION: No acute disease. Devon Decker MD EKG shows sinus rhythm with no sign of acute ischemia or arrhythmia. Read by me and attending. Troponin and CK-MB negative. Differential Diagnosis VA versus pancreatitis versus angina versus acute coronary syndrome versus alcohol intoxication versus GERD Narrative Course 61-year-old male that presents to the ED for evaluation of chest pain. Patient was properly examined and was found to have signs and symptoms consistent more with alcohol abuse and a typical chest pain. Labs and imaging were ordered. Labs worsen she unremarkable other than for an alcohol of 395 which is higher than the one this morning of 370. Patient states that he did not drink anything since been discharged but this is unlikely. Patient does have a slightly elevated lipase of 500 but this time I do not believe this is acute pancreatitis. Patient will be treated with IV fluids. This is likely all related to his alcohol. Troponin and EKG were normal and he actually had an EKG done when he was here less than 6 hours ago that was also normal there is no changes in EKG. I doubt this is cardiac. Patient will be allowed to sleep off his intoxication. Okay to be discharged once medically sober. Diagnosis Primary Impression: Alcohol abuse Additional Impression: Atypical chest pain Corey Reynoso Jan 04, 2017 21:04
[2017-01-04] MEDS ORDERED: LORazepam 2 MG/ML VIAL IV PUSH ONE (21:15)
[2017-01-04 21:30] VITALS: BP 145/91; PULSE 90; RESP 16; O2SAT 96
[2017-01-04 21:46] LABS: AUTOMATED NEUTROPHIL # 3.9 TH/MM3 (1.8-7.7); BASOPHIL # 0.1 TH/MM3 (0-0.2); BASOPHIL % 1.2 % (0.0-2.0); EOSINOPHIL # 0.1 TH/MM3 (0-0.4); EOSINOPHIL % 0.7 % (0.0-4.0); HEMATOCRIT 35.2 % (39.0-51.0); HEMO FLAGS DIFF FINAL; LYMPH % 33.7 % (9.0-44.0); LYMPHOCYTE # 2.5 TH/MM3 (1.0-4.8); MEAN CELL VOLUME 99.8 FL (80.0-100.0); MEAN CORPUSCULAR HEMOGLOBIN 33.8 PG (27.0-34.0); MEAN CORPUSCULAR HGB CONC 33.9 % (32.0-36.0); MONO % 13.3 % (0.0-8.0); NEUT % 51.1 % (16.0-70.0); PLATELET COUNT 137 TH/MM3 (150-450); RED BLOOD COUNT 3.53 MIL/MM3 (4.50-5.90); RED CELL DISTRIBUTION WIDTH 14.8 % (11.6-17.2); WHITE BLOOD COUNT 7.6 TH/MM3 (4.0-11.0)
[2017-01-04 22:00] VITALS: BP 150/80; PULSE 60; RESP 16; O2SAT 97
[2017-01-04 22:01] LABS: ANION GAP 10 MEQ/L (5-15); BICARBONATE 22.3 MEQ/L (21.0-32.0); BLOOD UREA NITROGEN 7 MG/DL (7-18); CHLORIDE 108 MEQ/L (98-107); GLOMERULAR FILTRATION RATE 96 ML/MIN (>89); MAGNESIUM 1.7 MG/DL (1.5-2.5); POTASSIUM 3.2 MEQ/L (3.5-5.1); SODIUM (NA) 140 MEQ/L (136-145)
--- NOTE | 2017-01-04 22:03 | RADRPT ---
EXAM DATE/TIME: 01/04/2017 21:05 [facility] COMPARISON: No previous studies available for comparison. INDICATIONS : Chest pain post suicide attempt. MEDICAL HISTORY : Hepatitis C. Cardiovascular disease Seizures SURGICAL HISTORY : None. ENCOUNTER: Initial ACUITY: 1 day PAIN SCORE: 9/10 LOCATION: Bilateral chest FINDINGS: A single view of the chest demonstrates the lungs to be symmetrically aerated without evidence of mas s, infiltrate or effusion. The cardiomediastinal contours are unremarkable. Osseous structures are intact. CONCLUSION: No acute disease. Devon Decker MD on January 04, 2017 at 22:01 Board Certified Radiologist. This report was verified electronically.
[2017-01-04 22:08] LABS: CREATINE KINASE 61 U/L (39-308)
[2017-01-04] MEDS ORDERED: FLUMAZENIL 0.5 MG/5 ML VIAL IV PUSH PRN (22:15)
[2017-01-04] MEDS ORDERED: LORazepam 2 MG TAB PO PRN (22:15)
[2017-01-04] MEDS ORDERED: ONDANSETRON HCL 4 MG/2 ML VIAL IV PUSH PRN (22:15)
[2017-01-04] MEDS ORDERED: LORazepam 2 MG/ML VIAL IV PUSH PRN ×4 (22:15)
[2017-01-04] MEDS ORDERED: LORazepam 1 MG TAB PO PRN (22:15)
[2017-01-04 23:30] VITALS: BP 116/62; PULSE 64; RESP 16; O2SAT 97
--- NOTE | 2017-01-05 14:57 | EKG ---
Date Performed: 01/04/2017 Time Performed: 20:48:32 PTAGE: 61 years EKG: Sinus rhythm NORMAL ECG PREVIOUS TRACING 01/04/2017 14.58.57 Since previous tracing, no significant change noted DOCTOR: Dwight Mayorga Interpretating Date/Time 01/05/2017 14:55:41
== END 2017-01-05 03:36 | disposition home or self-care (01) ==
LOC: NEPE 20:36 → NEDAMB 01-05 03:36
DX: F10.10 Alcohol abuse, uncomplicated (principal); R07.89 Other chest pain; B19.20 Unspecified viral hepatitis C without hepatic coma; R19.7 Diarrhea, unspecified; I10 Essential (primary) hypertension; I48.91 Unspecified atrial fibrillation; F41.9 Anxiety disorder, unspecified; R56.9 Unspecified convulsions; Z79.899 Other long term (current) drug therapy
CPT/HCPCS: 71010; 80048; 80307; 82550; 83690; 83735; 84484; 85025; 93005; 96374; 99285; J2060; J7030

== ENCOUNTER 2017-01-08 18:00 | Emergency (ER) | payer SELFPAY ==
[2017-01-08 18:02] VITALS: BP 122/77; PULSE 92; RESP 20; TEMP 97.8; O2SAT 100
[2017-01-08 19:06] VITALS: BP 130/69; PULSE 80; RESP 18; O2SAT 97
[2017-01-09] MEDS ORDERED: LORA-474 PO (15:48)
== END 2017-01-08 18:22 | disposition left against medical advice (07) ==
LOC: NEPD 18:00
DX: F10.129 Alcohol abuse with intoxication, unspecified (principal)
CPT/HCPCS: 99281

== ENCOUNTER 2017-01-08 18:52 | Emergency (ER) | payer OTHER ==
[~2017-01-08] VITALS: Ht 182.9 cm; Wt 75.0 kg
[2017-01-08 19:18] VITALS: BP 130/70; PULSE 92; RESP 18; O2SAT 97
--- NOTE | 2017-01-08 19:27 | PD ---
HPI Chief Complaint: Psychiatric Symptoms Time Seen by Provider: 19:22 Travel History International Travel<30 days: No Contact w/Intl Traveler<30days: No Traveled to known affect area: No History of Present Illness HPI 61-year-old male who is well-known the emergency department presents under Gutierres act by local police. The patient states he is suicidal because of his alcoholism. He states he would give anything to have his daughter and back. He states he lost them due to his alcoholism. He states he is suicidal and his plan is to "overdose". He denies any attempt to hurt himself at this point. Patient denies any homicidal ideations to me. He states he drink half a gallon of vodka today. He denies illicit drug use. He denies any medical complaints to me at this time. PFSH Past Medical History Atrial Fibrillation: Yes Anxiety: Yes Depression: Yes Heart Rhythm Problems: No Cancer: No Cardiovascular Problems: No High Cholesterol: No Chest Pain: No Congestive Heart Failure: No Cerebrovascular Accident: No Diabetes: No Dialysis: No Diminished Hearing: No Endocrine: No Gastrointestinal Disorders: Yes (CDT colitis) GERD: No Genitourinary: No Hepatitis: Yes (HEP C) Hiatal Hernia: No Heparin Induced Thrombocytopen: No Hypertension: Yes Immune Disorder: No Implanted Vascular Access Dvce: No Kidney Stones: No Musculoskeletal: No Neurologic: No Psychiatric: No Reproductive: No Respiratory: No Immunizations Current: Yes Migraines: No Renal Failure: No Seizures: Yes (RELATED TO ALCOHOL WITHDRAW) Sickle Cell Disease: No Ulcer: No ?: Not Past Surgical History Abdominal Surgery: No AICD: No Arteriovenous Shunt: No Cardiac Surgery: No Ear Surgery: No Endocrine Surgery: No Eye Surgery: No Genitourinary Surgery: No Gynecologic Surgery: No Insulin Pump: No Joint Replacement: No Neurologic Surgery: No Oral Surgery: Yes Pacemaker: No Thoracic Surgery: No Social History Alcohol Use: Yes (daily vodka) Tobacco Use: No (PT DENIES) Substance Use: No (PT DENIES) Allergies-Medications (Allergen,Severity, Reaction): Coded Allergies: No Known Allergies (Unverified , 01/04/17) Reported Meds & Prescriptions Reported Meds & Active Scripts Active Review of Systems Except as stated in HPI: all other systems reviewed are Neg Physical Exam Narrative GENERAL: Well-nourished, well-developed male patient, afebrile. SKIN: Focused skin assessment warm/dry. HEAD: Normocephalic. Atraumatic. EYES: No scleral icterus. No injection or drainage. NECK: Supple, trachea midline. No JVD or lymphadenopathy. CARDIOVASCULAR: Regular rate and rhythm without murmurs, gallops, or rubs. RESPIRATORY: Breath sounds equal bilaterally. No accessory muscle use. Lungs sounds are clear to auscultation GASTROINTESTINAL: Abdomen soft, non-tender, nondistended. MUSCULOSKELETAL: No cyanosis, or edema. PSYCHIATRIC: No delusional thought processes. No hallucinations. Data Data Last Documented VS Vital Signs Date Time Temp Pulse Resp B/P (MAP) Pulse Ox O2 Delivery O2 Flow Rate FiO2 01/08/17 19:41 97.9 01/08/17 19:18 92 18 130/70 (90) 97 Orders Orders Psych Screen (01/08/17 19:22) Alcohol (Ethanol) (01/08/17 19:22) Labs Laboratory Tests Test 01/08/17 19:25 Ethyl Alcohol Level 313 MG/DL [facility] Medical Decision Making Medical Screen Exam Complete: Yes Emergency Medical Condition: Yes Medical Record Reviewed: Yes Differential Diagnosis Alcohol intoxication versus mood disorder versus depression versus anxiety versus medical clearance Narrative Course 61-year-old male presents to the emergency department under Gutierres act by local police for suicidal ideation. Patient had labs completed recently on December. I have reviewed these labs. CBC showed no acute abnormality. BMP showed no acute abnormality. Alcohol level is ordered and pending. Psych screen is ordered. Alcohol level is 313. Patient is medically cleared for psychiatric screening and disposition. Mental health screening discussed with the patient. Psychiatric screen ordered. Diagnosis Primary Impression: Alcohol abuse with intoxication Additional Instructions: Patient is medically cleared for psychiatric screening and disposition. Condition: Stable Luciana Sellers Jan 08, 2017 19:27
[2017-01-08 19:41] VITALS: TEMP 97.9
[2017-01-09 06:32] VITALS: BP 115/61; PULSE 59; RESP 18; O2SAT 99
--- NOTE | 2017-01-09 10:38 | PD ---
History of Present Illness Chief Complaint: Psychiatric Symptoms Time Seen by Provider: 10:20 Travel History International Travel<30 Days: No Contact w/Intl Traveler<30days: No Known affected area: No Legal Status Legal Status: 79 Group History of Present Illness: History of Present Illness HPI 61-year-old male with history of alcohol dependence who is well-known to the emergency department.So far he has had 15 visits for alcohol intoxication and other alcohol related visits in this month . He presents under Gutierres act by local police. The report alleges that the patient stated that he felt suicidal and like he did not want to live any more. He was at [facility] when he threatened to pull out a weapon and use it on himself and others. He reported to ed provider that " he is suicidal because of his alcoholism and that he would give anything to have his daughter and back. He states he lost them due to his alcoholism. He states he is suicidal and his plan is to "overdose". He denies any attempt to hurt himself at this point. Patient denies any homicidal ideations to me. He states he drink half a gallon of vodka today." BAL on arrival to ED was 313. He was monitored in safe environment and was allowed to sober up . This morning he is clinically sober and is not presenting symptoms of withdrawal. His speech is clear and logical. There is no psychosis. He denies suicidal ideation and states " I'm here because I'm not supposed to be drinking". He reports that he was recently discharged from [facility] and that he has some Ativan that was prescribed for him at that hospital. The case management staff have made arrangements for him to be evaluated and possibly be admitted to a tretametn program but scott ma nto want to wait for the mental health case manager to arrive on the unit and leaves with out the information. PFSH Past Medical History Atrial Fibrillation: Yes Anxiety: Yes Depression: Yes Heart Rhythm Problems: No Cancer: No Cardiovascular Problems: No High Cholesterol: No Chest Pain: No Congestive Heart Failure: No Cerebrovascular Accident: No Diabetes: No Dialysis: No Diminished Hearing: No Endocrine: No Gastrointestinal Disorders: Yes (CDT colitis) GERD: No Genitourinary: No Hepatitis: Yes (HEP C) Hiatal Hernia: No Heparin Induced Thrombocytopen: No Hypertension: Yes Immune Disorder: No Implanted Vascular Access Dvce: No Kidney Stones: No Musculoskeletal: No Neurologic: No Psychiatric: No Reproductive: No Respiratory: No Immunizations Current: Yes Migraines: No Renal Failure: No Seizures: Yes (RELATED TO ALCOHOL WITHDRAW) Sickle Cell Disease: No Ulcer: No ?: Not Past Surgical History Abdominal Surgery: No AICD: No Arteriovenous Shunt: No Cardiac Surgery: No Ear Surgery: No Endocrine Surgery: No Eye Surgery: No Genitourinary Surgery: No Gynecologic Surgery: No Insulin Pump: No Joint Replacement: No Neurologic Surgery: No Oral Surgery: Yes Pacemaker: No Thoracic Surgery: No Psychiatric History Psychiatric History Hx Psychiatric Treatment: PATIENT WAS LAST ADMITTED TO [facility] FROM 11/25/15 TO 11/29/15 FOR DEPRESSION associated with alcohol abuse. History of Inpatient Treatment: Yes Guns or firearms in home: No Social History male. Lives with and a daughter. 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 Hx Alcohol Use: Yes (daily vodka) Hx Tobacco Use: No (PT DENIES) Hx Substance Use: No (PT DENIES) Substance Use Type: Alcohol, Benzos (Valium,Xanax), Synth Opiates-Pain Pills Hx of Substance Use Treatment: Yes Family Psychiatric History Negative Allergies-Medications (Allergen,Severity, Reaction): Coded Allergies: No Known Allergies (Unverified , 01/09/17) Reported Meds & Prescriptions Reported Meds & Active Scripts Active Review of Systems Except as stated in HPI: all other systems reviewed are Neg Exam Alert: Yes [place]: Person (ox4) Mood: Calm Affect: Appropriate Speech: Clear, Logical Eye Contact: Normal Memory Intact: Comment (no impairmetn) Hallucinations: Other (negative) Delusions: No Suicidal: Ideation (deneis any) Homicidal: Ideation (deneis any) Insight/Judgement Poor. not impaired. [facility] Medical Decision Making Medical Record Reviewed: Yes Assessment/Plan 61-year-old male with history of alcohol dependence who is well-known to the emergency department. So far he has had 15 visits for alcohol intoxication and other alcohol related visits in this month . He presents under Gutierres act by local police. The patient was monitored until he was clinically sober.Once sober he denied any suicidal or homicidal ideation , intent or plan. Case management have made arrangements for him to enter a treatment facility but he chooses to leave the unit before speaking with them. Orders Orders Psych Screen (01/08/17 19:22) Alcohol (Ethanol) (01/08/17 19:22) Diet Regular Basic (01/09/17 Lunch) Results Vital Signs Date Time Temp Pulse Resp B/P (MAP) Pulse Ox O2 Delivery O2 Flow Rate FiO2 01/09/17 06:32 59 18 115/61 (79) 99 Room Air 01/08/17 19:41 97.9 01/08/17 19:18 92 18 130/70 (90) 97 Laboratory Tests Test 01/08/17 19:25 Ethyl Alcohol Level 313 Diagnosis Primary Impression: Alcohol dependence with acute alcoholic intoxication Psychiatrically Cleared: Yes Referrals: [facility] (Out patient) call for appointment Departure Forms: Tests/Procedures Patient Instructions: General Instructions, Alcohol Dependence (ED) Additional Instructions: Patient is medically cleared for psychiatric screening and disposition. Disposition: 01 DISCHARGE HOME Condition: Stable Problem Qualifiers Primary Impression: Alcohol dependence with acute alcoholic intoxication Qualified Codes: F10.220 - Alcohol dependence with intoxication, uncomplicated Kasey Taylor [facility] Jan 09, 2017 10:38
[2017-01-09] MEDS ORDERED: LORA-474 PO (15:48)
== END 2017-01-09 11:37 | disposition home or self-care (01) ==
LOC: NEPD 18:52 → NEPJ 01-09 11:37
DX: F10.229 Alcohol dependence with intoxication, unspecified (principal); R45.851 Suicidal ideations; I48.91 Unspecified atrial fibrillation; I10 Essential (primary) hypertension
CPT/HCPCS: 80307; 99284

== ENCOUNTER 2017-01-09 14:19 | Emergency (ER) | payer OTHER ==
[~2017-01-09] VITALS: Ht 177.8 cm; Wt 65.0 kg
[2017-01-09 14:49] VITALS: BP 100/63; PULSE 96; RESP 21; TEMP 97.7; O2SAT 96
[2017-01-09 15:45] LABS: AUTOMATED NEUTROPHIL # 5.8 TH/MM3 (1.8-7.7); BASOPHIL # 0.1 TH/MM3 (0-0.2); BASOPHIL % 0.9 % (0.0-2.0); EOSINOPHIL # 0.1 TH/MM3 (0-0.4); EOSINOPHIL % 0.7 % (0.0-4.0); HEMATOCRIT 40.5 % (39.0-51.0); HEMO FLAGS DIFF FINAL; LYMPH % 22.4 % (9.0-44.0); LYMPHOCYTE # 1.9 TH/MM3 (1.0-4.8); MEAN CELL VOLUME 99.9 FL (80.0-100.0); MEAN CORPUSCULAR HEMOGLOBIN 33.5 PG (27.0-34.0); MEAN CORPUSCULAR HGB CONC 33.6 % (32.0-36.0); MONO % 9.3 % (0.0-8.0); NEUT % 66.7 % (16.0-70.0); PLATELET COUNT 208 TH/MM3 (150-450); RED BLOOD COUNT 4.05 MIL/MM3 (4.50-5.90); RED CELL DISTRIBUTION WIDTH 14.6 % (11.6-17.2); WHITE BLOOD COUNT 8.6 TH/MM3 (4.0-11.0)
[2017-01-09] MEDS ORDERED: LORA-474 PO (15:48)
[2017-01-09 15:57] LABS: ALT (GPT) 80 U/L (12-78); ANION GAP 12 MEQ/L (5-15); AST (GOT) 100 U/L (15-37); BICARBONATE 19.6 MEQ/L (21.0-32.0); BLOOD UREA NITROGEN 12 MG/DL (7-18); CHLORIDE 111 MEQ/L (98-107); GLOMERULAR FILTRATION RATE 62 ML/MIN (>89); POTASSIUM 4.2 MEQ/L (3.5-5.1); SODIUM (NA) 143 MEQ/L (136-145)
[2017-01-09 15:59] LABS: ALKALINE PHOSPHATASE 118 U/L (45-117); TOTAL BILIRUBIN ADULT 0.5 MG/DL (0.2-1.0)
--- NOTE | 2017-01-09 16:20 | PD ---
HPI Chief Complaint: Psychiatric Symptoms Time Seen by Provider: 15:44 Travel History International Travel<30 days: No Contact w/Intl Traveler<30days: No Traveled to known affect area: No History of Present Illness HPI Patient is a 61-year-old male presenting to the emergency department due to suicidal ideations. Patient is well-known, he has been here multiple times with the same complaint. Patient missed a daily excessive alcohol intake. Has no physical complaints at this time. He has no suicide plan. PFSH Past Medical History Atrial Fibrillation: Yes Anxiety: Yes Depression: Yes Heart Rhythm Problems: No Cancer: No Cardiovascular Problems: No High Cholesterol: No Chest Pain: No Congestive Heart Failure: No Cerebrovascular Accident: No Diabetes: No Dialysis: No Diminished Hearing: No Endocrine: No Gastrointestinal Disorders: Yes (CDT colitis) GERD: No Genitourinary: No Hepatitis: Yes (HEP C) Hiatal Hernia: No Heparin Induced Thrombocytopen: No Hypertension: Yes Immune Disorder: No Implanted Vascular Access Dvce: No Kidney Stones: No Musculoskeletal: No Neurologic: No Psychiatric: No Reproductive: No Respiratory: No Immunizations Current: Yes Migraines: No Renal Failure: No Seizures: Yes (RELATED TO ALCOHOL WITHDRAW) Sickle Cell Disease: No Ulcer: No Tetanus Vaccination: < 5 Years ?: Not Past Surgical History Abdominal Surgery: No AICD: No Arteriovenous Shunt: No Cardiac Surgery: No Ear Surgery: No Endocrine Surgery: No Eye Surgery: No Genitourinary Surgery: No Gynecologic Surgery: No Insulin Pump: No Joint Replacement: No Neurologic Surgery: No Oral Surgery: Yes Pacemaker: No Thoracic Surgery: No Social History Alcohol Use: Yes (daily ) Tobacco Use: No (PT DENIES) Substance Use: No (PT DENIES) Allergies-Medications (Allergen,Severity, Reaction): Coded Allergies: No Known Allergies (Unverified , 01/09/17) Reported Meds & Prescriptions Reported Meds & Active Scripts Active Reported Ativan (Lorazepam) 1 Mg Tab 1 Mg PO Q8H PRN Review of Systems ROS Limitations: Intoxication Except as stated in HPI: all other systems reviewed are Neg Psychiatric: Positive: Depression, Suicidal Ideations, Substance Abuse Physical Exam Narrative GENERAL: Thin, well-developed, intoxicated-appearing male. Resting comfortably in no acute distress. SKIN: Warm and dry. HEAD: Atraumatic. Normocephalic. EYES: Pupils equal and round. No scleral icterus. No injection or drainage. ENT: No nasal bleeding or discharge. Mucous membranes pink and moist. NECK: Trachea midline. No JVD. CARDIOVASCULAR: Regular rate and rhythm. RESPIRATORY: No accessory muscle use. Clear to auscultation. Breath sounds equal bilaterally. GASTROINTESTINAL: Abdomen soft, non-tender, nondistended. Hepatic and splenic margins not palpable. MUSCULOSKELETAL: Extremities without clubbing, cyanosis, or edema. No obvious deformities. NEUROLOGICAL: Awake and alert. No obvious cranial nerve deficits. Motor grossly within normal limits. Five out of 5 muscle strength in the arms and legs. Normal speech. PSYCHIATRIC: Depressed mood and affect; insight and judgment normal. Data Data Last Documented VS Vital Signs Date Time Temp Pulse Resp B/P (MAP) Pulse Ox O2 Delivery O2 Flow Rate FiO2 01/09/17 14:49 97.7 96 21 100/63 (75) 96 Orders Orders Complete Blood Count With Diff (01/09/17 14:34) Comprehensive Metabolic Panel (01/09/17 14:34) Psych Screen (01/09/17 14:34) Consult Sma Senior Marketing Associate (01/09/17 ) Alcohol (Ethanol) (01/09/17 15:45) Labs Laboratory Tests Test 01/09/17 14:55 White Blood Count 8.6 TH/MM3 Red Blood Count 4.05 MIL/MM3 Hemoglobin 13.6 GM/DL Hematocrit 40.5 % Mean Corpuscular Volume 99.9 FL Mean Corpuscular Hemoglobin 33.5 PG Mean Corpuscular Hemoglobin Concent 33.6 % Red Cell Distribution Width 14.6 % Platelet Count 208 TH/MM3 Mean Platelet Volume 6.7 FL Neutrophils (%) (Auto) 66.7 % Lymphocytes (%) (Auto) 22.4 % Monocytes (%) (Auto) 9.3 % Eosinophils (%) (Auto) 0.7 % Basophils (%) (Auto) 0.9 % Neutrophils # (Auto) 5.8 TH/MM3 Lymphocytes # (Auto) 1.9 TH/MM3 Monocytes # (Auto) 0.8 TH/MM3 Eosinophils # (Auto) 0.1 TH/MM3 Basophils # (Auto) 0.1 TH/MM3 CBC Comment DIFF FINAL Differential Comment Blood Urea Nitrogen 12 MG/DL Creatinine 1.20 MG/DL Random Glucose 108 MG/DL Total Protein 8.1 GM/DL Albumin 3.7 GM/DL Calcium Level 8.6 MG/DL Alkaline Phosphatase 118 U/L Aspartate Amino Transf (AST/SGOT) 100 U/L Alanine Aminotransferase (ALT/SGPT) 80 U/L Total Bilirubin 0.5 MG/DL Sodium Level 143 MEQ/L Potassium Level 4.2 MEQ/L Chloride Level 111 MEQ/L Carbon Dioxide Level 19.6 MEQ/L Anion Gap 12 MEQ/L Estimat Glomerular Filtration Rate 62 ML/MIN Ethyl Alcohol Level 362 MG/DL MDM Medical Decision Making Medical Screen Exam Complete: Yes Emergency Medical Condition: Yes Medical Record Reviewed: Yes Interpretation(s) Vital Signs Date Time Temp Pulse Resp B/P (MAP) Pulse Ox O2 Delivery O2 Flow Rate FiO2 01/09/17 14:49 97.7 96 21 100/63 (75) 96 Laboratory Tests Test 01/09/17 14:55 White Blood Count 8.6 TH/MM3 Red Blood Count 4.05 MIL/MM3 Hemoglobin 13.6 GM/DL Hematocrit 40.5 % Mean Corpuscular Volume 99.9 FL Mean Corpuscular Hemoglobin 33.5 PG Mean Corpuscular Hemoglobin Concent 33.6 % Red Cell Distribution Width 14.6 % Platelet Count 208 TH/MM3 Mean Platelet Volume 6.7 FL Neutrophils (%) (Auto) 66.7 % Lymphocytes (%) (Auto) 22.4 % Monocytes (%) (Auto) 9.3 % Eosinophils (%) (Auto) 0.7 % Basophils (%) (Auto) 0.9 % Neutrophils # (Auto) 5.8 TH/MM3 Lymphocytes # (Auto) 1.9 TH/MM3 Monocytes # (Auto) 0.8 TH/MM3 Eosinophils # (Auto) 0.1 TH/MM3 Basophils # (Auto) 0.1 TH/MM3 CBC Comment DIFF FINAL Differential Comment Blood Urea Nitrogen 12 MG/DL Creatinine 1.20 MG/DL Random Glucose 108 MG/DL Total Protein 8.1 GM/DL Albumin 3.7 GM/DL Calcium Level 8.6 MG/DL Alkaline Phosphatase 118 U/L Aspartate Amino Transf (AST/SGOT) 100 U/L Alanine Aminotransferase (ALT/SGPT) 80 U/L Total Bilirubin 0.5 MG/DL Sodium Level 143 MEQ/L Potassium Level 4.2 MEQ/L Chloride Level 111 MEQ/L Carbon Dioxide Level 19.6 MEQ/L Anion Gap 12 MEQ/L Estimat Glomerular Filtration Rate 62 ML/MIN Ethyl Alcohol Level 362 MG/DL Vital Signs Date Time Temp Pulse Resp B/P (MAP) Pulse Ox O2 Delivery O2 Flow Rate FiO2 01/09/17 14:49 97.7 96 21 100/63 (75) 96 Differential Diagnosis Substance abuse versus intoxication versus mood disorder versus depression versus suicidal ideations versus other Narrative Course Patient is a 61-year-old male that is well-known has had multiple presentations to the emergency department over the last several days, presenting due to suicidal ideations. Patient has a history of alcoholism and will be going to [facility]. Labs ordered and pending. CBC and chemistry with no emergent findings identified. Alcohol level is 362. Patient is medically clear for psychiatric evaluation at this time. Diagnosis Primary Impression: Medical clearance for psychiatric admission Additional Impressions: Depression with suicidal ideation Alcohol abuse with intoxication Condition: Stable Erica Jean Baptiste Jan 09, 2017 16:20
[2017-01-09 18:17] VITALS: BP 99/56; PULSE 65; RESP 14; O2SAT 96
[2017-01-09] MEDS ORDERED: LORazepam 2 MG TAB PO PRN (21:15)
[2017-01-09] MEDS ORDERED: LORazepam 1 MG TAB PO PRN (21:15)
[2017-01-09] MEDS ORDERED: LORazepam 2 MG/ML VIAL IV PUSH PRN ×4 (21:15)
[2017-01-09 22:00] VITALS: BP 115/64; PULSE 67; RESP 18; O2SAT 100
[2017-01-10 02:10] VITALS: BP 111/58; PULSE 65; RESP 18; O2SAT 97
[2017-01-10 06:21] VITALS: BP 144/82; PULSE 56; RESP 19; O2SAT 99
--- NOTE | 2017-01-10 10:21 | PD ---
History of Present Illness Chief Complaint: Psychiatric Symptoms Time Seen by Provider: 10:00 Travel History International Travel<30 Days: No Contact w/Intl Traveler<30days: No Known affected area: No Legal Status Legal Status: Gutierres Act Gutierres Act Signed By: Keysha Gutierres Act Comment: 01/09/2017 202 PM History of Present Illness: 61-year-old male, well known to this physician and the emergency department staff at [place], presents under a Gutierres act for making suicidal threats. Patient is a daily drinker but is currently asking for detox and rehabilitation. This physician spoke with the patient's media liaison officer, Dion, who has arranged for the patient to receive detox at [facility] and rehabilitation at a facility in the [place]. With this plan, the patient is able to contract for safety. He reports no suicidal or homicidal ideation, plan or intent. He has no psychotic symptoms and his cognition is intact. He is tremulous and will possibly go into withdrawal, but is being given Ativan at this time. PFSH Past Medical History Atrial Fibrillation: Yes Anxiety: Yes Depression: Yes Heart Rhythm Problems: No Cancer: No Cardiovascular Problems: No High Cholesterol: No Chest Pain: No Congestive Heart Failure: No Cerebrovascular Accident: No Diabetes: No Dialysis: No Diminished Hearing: No Endocrine: No Gastrointestinal Disorders: Yes (CDT colitis) GERD: No Genitourinary: No Hepatitis: Yes (HEP C) Hiatal Hernia: No Heparin Induced Thrombocytopen: No Hypertension: Yes Immune Disorder: No Implanted Vascular Access Dvce: No Kidney Stones: No Musculoskeletal: No Neurologic: No Psychiatric: No Reproductive: No Respiratory: No Immunizations Current: Yes Migraines: No Renal Failure: No Seizures: Yes (RELATED TO ALCOHOL WITHDRAW) Sickle Cell Disease: No Ulcer: No Tetanus Vaccination: < 5 Years ?: Not Past Surgical History Abdominal Surgery: No AICD: No Arteriovenous Shunt: No Cardiac Surgery: No Ear Surgery: No Endocrine Surgery: No Eye Surgery: No Genitourinary Surgery: No Gynecologic Surgery: No Insulin Pump: No Joint Replacement: No Neurologic Surgery: No Oral Surgery: Yes Pacemaker: No Thoracic Surgery: No Psychiatric History Psychiatric History Hx Psychiatric Treatment: PATIENT WAS LAST ADMITTED TO [facility] FROM 11/25/15 TO 11/29/15 FOR DEPRESSION associated with alcohol abuse. History of Inpatient Treatment: Yes Guns or firearms in home: No Social History Hx Alcohol Use: Yes (daily ) Hx Tobacco Use: No (PT DENIES) Hx Substance Use: No (PT DENIES) Substance Use Type: Alcohol, Benzos (Valium,Xanax), Synth Opiates-Pain Pills Other Substances Used: last alcohol 0200 and last heroin 3 days ago Hx of Substance Use Treatment: Yes Allergies-Medications (Allergen,Severity, Reaction): Coded Allergies: No Known Allergies (Unverified , 01/09/17) Reported Meds & Prescriptions Reported Meds & Active Scripts Active Reported Ativan (Lorazepam) 1 Mg Tab 1 Mg PO Q8H PRN Review of Systems Except as stated in HPI: all other systems reviewed are Neg Exam Alert: Yes [place]: Person, Place, Date, Situation Mood: Anxious Affect: Appropriate Speech: Clear, Logical Eye Contact: Normal Memory Intact: Immediate, Recent, Remote Insight/Judgement Adequate MDM Medical Decision Making Medical Record Reviewed: Yes Assessment/Plan This physician spoke with the patient's media liaison officer, Dion, the patient's nurse , Zully, and reviewed his record. At this time, this physician feels he does not meet criteria for Gutierres act. This physician is well aware of the patient's repeated suicidal threats but wants to give the patient the opportunity to receive detox and rehabilitation while he is willing to do so. He does not therefore meet criteria for Gutierres act or involuntary psychiatric hospitalization. Orders Orders Complete Blood Count With Diff (01/09/17 14:34) Comprehensive Metabolic Panel (01/09/17 14:34) Psych Screen (01/09/17 14:34) Consult [facility] Maintainer Operator (01/09/17 ) Alcohol (Ethanol) (01/09/17 15:45) Diet Regular Basic (01/09/17 Dinner) Alcohol Withdrawal Asmt-[place] ONCE (01/09/17 21:09) Lorazepam (Ativan) (01/09/17 21:15) Lorazepam Inj (Ativan Inj) (01/09/17 21:15) Lorazepam (Ativan) (01/09/17 21:15) Lorazepam Inj (Ativan Inj) (01/09/17 21:15) Lorazepam Inj (Ativan Inj) (01/09/17 21:15) Lorazepam Inj (Ativan Inj) (01/09/17 21:15) Diet Regular Basic (01/10/17 Breakfast) Results Vital Signs Date Time Temp Pulse Resp B/P (MAP) Pulse Ox O2 Delivery O2 Flow Rate FiO2 01/10/17 06:21 56 19 144/82 (102) 99 Room Air 01/10/17 02:10 65 18 111/58 (75) 97 Room Air 01/09/17 22:00 67 18 115/64 (81) 100 Room Air 01/09/17 18:17 65 14 99/56 (70) 96 Room Air 01/09/17 14:49 97.7 96 21 100/63 (75) 96 Laboratory Tests Test 01/09/17 14:55 White Blood Count 8.6 Red Blood Count 4.05 Hemoglobin 13.6 Hematocrit 40.5 Mean Corpuscular Volume 99.9 Mean Corpuscular Hemoglobin 33.5 Mean Corpuscular Hemoglobin Concent 33.6 Red Cell Distribution Width 14.6 Platelet Count 208 Mean Platelet Volume 6.7 Neutrophils (%) (Auto) 66.7 Lymphocytes (%) (Auto) 22.4 Monocytes (%) (Auto) 9.3 Eosinophils (%) (Auto) 0.7 Basophils (%) (Auto) 0.9 Neutrophils # (Auto) 5.8 Lymphocytes # (Auto) 1.9 Monocytes # (Auto) 0.8 Eosinophils # (Auto) 0.1 Basophils # (Auto) 0.1 CBC Comment DIFF FINAL Differential Comment Blood Urea Nitrogen 12 Creatinine 1.20 Random Glucose 108 Total Protein 8.1 Albumin 3.7 Calcium Level 8.6 Alkaline Phosphatase 118 Aspartate Amino Transf (AST/SGOT) 100 Alanine Aminotransferase (ALT/SGPT) 80 Total Bilirubin 0.5 Sodium Level 143 Potassium Level 4.2 Chloride Level 111 Carbon Dioxide Level 19.6 Anion Gap 12 Estimat Glomerular Filtration Rate 62 Ethyl Alcohol Level 362 Diagnosis Primary Impression: Alcohol dependence with acute alcoholic intoxication Condition: Stable Davie Oconnell MD Jan 10, 2017 10:21
[2017-01-10] MEDS ORDERED: LORazepam 1 MG TAB PO ONE (11:00)
[2017-01-10 13:50] VITALS: BP 140/68; TEMP 98
--- NOTE | 2017-01-10 17:59 | PD ---
HPI . "I have had diarrhea" Chief Complaint: Psychiatric Symptoms Travel History International Travel<30 days: No Contact w/Intl Traveler<30days: No Traveled to known affect area: No History of Present Illness HPI This is a 61 year old male with PMH of Hep C and Alcoholism presents with 1 month of diarrhea. He reports his symptoms are constant and is also complaining of nausea, diarrhea, chills, night sweats. He reports a history of colitis and his last colonoscopy was 2-3 years ago that didn't show anything. He does not have a PCP. Patient was just seen yesterday here for suicidal ideation. He was hogan acted and sent to [facility]. During his visit yesterday he denied any physical complaints. Patient admits he drinks "as much he can get" alcohol and denies tobacco or other drug use. He denies any allergies. PFSH Past Medical History Atrial Fibrillation: Yes Anxiety: Yes Depression: Yes Heart Rhythm Problems: No Cancer: No Cardiovascular Problems: No High Cholesterol: No Chest Pain: No Congestive Heart Failure: No Cerebrovascular Accident: No Diabetes: No Dialysis: No Diminished Hearing: No Endocrine: No Gastrointestinal Disorders: Yes (CDT colitis) GERD: No Genitourinary: No Hepatitis: Yes (HEP C) Hiatal Hernia: No Heparin Induced Thrombocytopen: No Hypertension: Yes Immune Disorder: No Implanted Vascular Access Dvce: No Kidney Stones: No Musculoskeletal: No Neurologic: No Psychiatric: No Reproductive: No Respiratory: No Immunizations Current: Yes Migraines: No Renal Failure: No Seizures: Yes (RELATED TO ALCOHOL WITHDRAW) Sickle Cell Disease: No Ulcer: No Tetanus Vaccination: < 5 Years ?: Not Past Surgical History Abdominal Surgery: No AICD: No Arteriovenous Shunt: No Cardiac Surgery: No Ear Surgery: No Endocrine Surgery: No Eye Surgery: No Genitourinary Surgery: No Gynecologic Surgery: No Insulin Pump: No Joint Replacement: No Neurologic Surgery: No Oral Surgery: Yes Pacemaker: No Thoracic Surgery: No Social History Alcohol Use: Yes (daily ) Tobacco Use: No (PT DENIES) Substance Use: No (PT DENIES) Allergies-Medications (Allergen,Severity, Reaction): Coded Allergies: No Known Allergies (Unverified , 01/09/17) Reported Meds & Prescriptions Reported Meds & Active Scripts Active Reported Ativan (Lorazepam) 1 Mg Tab 1 Mg PO Q8H PRN Review of Systems Except as stated in HPI: all other systems reviewed are Neg General / Constitutional: Positive: Chills, No: Fever HENT: No: Headaches, Lightheadedness, Sore Throat, Congestion Cardiovascular: No: Chest Pain or Discomfort, Palpitations Respiratory: No: Cough, Shortness of Breath Gastrointestinal: Positive: Nausea, Diarrhea, No: Abdominal Pain, Hematemesis, Hematochezia, Constipation Genitourinary: No: Urgency, Dysuria Skin: No Rash Neurologic: No: Weakness, Dizziness Psychiatric: Positive: Anxiety Physical Exam Narrative GENERAL: This is a thin malnourished man who looks older than his stated age. He is lying on the exam bed in no acute distress, he is alert and oriented 3. SKIN: Warm and dry. Sunburn on her neck and arms. No other rashes or lesions. HEAD: Atraumatic. Normocephalic. EYES: Pupils equal and round. ENT: No nasal bleeding or discharge. Mucous membranes pink and moist. NECK: Trachea midline. No lymphadenopathy CARDIOVASCULAR: Regular rate and rhythm. No murmurs or extra beats RESPIRATORY: No accessory muscle use. Clear to auscultation Bilaterally GASTROINTESTINAL: Abdomen soft, non-tender, nondistended. Bowel sounds normal. No tenderness on palpation with stethoscope, however tenderness on exam of abdomen. MUSCULOSKELETAL: No obvious deformities. No edema. NEUROLOGICAL: Awake and alert. No obvious cranial nerve deficits. Motor grossly within normal limits. Normal speech. PSYCHIATRIC: Flat affect. Data Data Last Documented VS Vital Signs Date Time Temp Pulse Resp B/P (MAP) Pulse Ox O2 Delivery O2 Flow Rate FiO2 01/10/17 13:50 98.0 64 18 140/68 (92) 99 01/10/17 06:21 Room Air Orders Orders Complete Blood Count With Diff (01/09/17 14:34) Comprehensive Metabolic Panel (01/09/17 14:34) Psych Screen (01/09/17 14:34) Consult [facility] Worker (01/09/17 ) Alcohol (Ethanol) (01/09/17 15:45) Diet Regular Basic (01/09/17 Dinner) Alcohol Withdrawal Asmt-Ciwa ONCE (01/09/17 21:09) Lorazepam (Ativan) (01/09/17 21:15) Lorazepam Inj (Ativan Inj) (01/09/17 21:15) Lorazepam (Ativan) (01/09/17 21:15) Lorazepam Inj (Ativan Inj) (01/09/17 21:15) Lorazepam Inj (Ativan Inj) (01/09/17 21:15) Lorazepam Inj (Ativan Inj) (01/09/17 21:15) Diet Regular Basic (01/10/17 Breakfast) Lorazepam (Ativan) (01/10/17 11:00) Diet Regular Basic (01/10/17 Lunch) Labs Laboratory Tests Test 01/09/17 14:55 White Blood Count 8.6 TH/MM3 Red Blood Count 4.05 MIL/MM3 Hemoglobin 13.6 GM/DL Hematocrit 40.5 % Mean Corpuscular Volume 99.9 FL Mean Corpuscular Hemoglobin 33.5 PG Mean Corpuscular Hemoglobin Concent 33.6 % Red Cell Distribution Width 14.6 % Platelet Count 208 TH/MM3 Mean Platelet Volume 6.7 FL Neutrophils (%) (Auto) 66.7 % Lymphocytes (%) (Auto) 22.4 % Monocytes (%) (Auto) 9.3 % Eosinophils (%) (Auto) 0.7 % Basophils (%) (Auto) 0.9 % Neutrophils # (Auto) 5.8 TH/MM3 Lymphocytes # (Auto) 1.9 TH/MM3 Monocytes # (Auto) 0.8 TH/MM3 Eosinophils # (Auto) 0.1 TH/MM3 Basophils # (Auto) 0.1 TH/MM3 CBC Comment DIFF FINAL Differential Comment Blood Urea Nitrogen 12 MG/DL Creatinine 1.20 MG/DL Random Glucose 108 MG/DL Total Protein 8.1 GM/DL Albumin 3.7 GM/DL Calcium Level 8.6 MG/DL Alkaline Phosphatase 118 U/L Aspartate Amino Transf (AST/SGOT) 100 U/L Alanine Aminotransferase (ALT/SGPT) 80 U/L Total Bilirubin 0.5 MG/DL Sodium Level 143 MEQ/L Potassium Level 4.2 MEQ/L Chloride Level 111 MEQ/L Carbon Dioxide Level 19.6 MEQ/L Anion Gap 12 MEQ/L Estimat Glomerular Filtration Rate 62 ML/MIN Ethyl Alcohol Level 362 MG/DL MDM Medical Decision Making Medical Screen Exam Complete: Yes Emergency Medical Condition: Yes Medical Record Reviewed: Yes (Seen here yesterday and for several other visits this week for intoxication and suicidal ideation. ) Differential Diagnosis Differential diagnosis of abdominal pain includes but is not limited to gastritis, pancreatitis, hepatitis, gastroenteritis, gallbladder disease, constipation, urinary retention, UTI, peptic ulcer disease, diverticulitis or appendicitis Narrative Course The patient is a 61 year old male with history of chronic alcohol use and Hepatitis C. He has been seen here several times this month. Diagnosis Primary Impression: Alcohol dependence with acute alcoholic intoxication Patient Instructions: General Instructions, Medical Clearance for Psychiatric Care (ED), Alcohol Use Disorder (ED) Departure Forms: Tests/Procedures Additional Instructions: DISCHARGE HOME ALCOHOL INTOXICATION FOLLOW-UP WITH PROVIDER OF CHOICE IN RESOURCE PACKAGE RETURN TO ED FOR WORSENING PROBLEMS Disposition: 01 DISCHARGE HOME Condition: Stable Nini Shepard MD Jan 10, 2017 17:59
== END 2017-01-10 14:07 | disposition home or self-care (01) ==
LOC: NEPD 14:19 → NEPJ 01-10 14:07
DX: F32.9 Major depressive disorder, single episode, unspecified (principal); R45.851 Suicidal ideations; F10.229 Alcohol dependence with intoxication, unspecified; Y90.8 Blood alcohol level of 240 mg/100 ml or more; I10 Essential (primary) hypertension
CPT/HCPCS: 80053; 80307; 85025; 99284

== ENCOUNTER 2017-01-10 15:48 | Emergency (ER) | payer SELFPAY ==
[~2017-01-10] VITALS: Ht 182.9 cm; Wt 72.5 kg
[~2017-01-10 15:48] MED LIST changes: +LORA-474 PO
[2017-01-10 16:04] VITALS: BP 113/72; PULSE 78; RESP 20; TEMP 97.7; O2SAT 95
--- NOTE | 2017-01-10 16:17 | PD ---
Physical Exam Date Seen by Provider: Jan 10, 2017 Time Seen by Provider: 16:16 Narrative 61 yo male here for N/V. History of C. diff. Alcohol abuse. States he is depressed and "sick". No injuries. No other medical issues. Came via [facility]. Vitals are stable in triage. Awaiting bed placement. Data Data Last Documented VS Vital Signs Date Time Temp Pulse Resp B/P (MAP) Pulse Ox O2 Delivery O2 Flow Rate FiO2 01/10/17 16:04 97.7 78 20 113/72 (86) 95 Room Air Orders Orders Complete Blood Count With Diff (01/10/17 16:15) Comprehensive Metabolic Panel (01/10/17 16:15) Lipase (01/10/17 16:15) Drug Screen, Random Urine (01/10/17 16:15) Alcohol (Ethanol) (01/10/17 16:15) [facility] Medical Record Reviewed: Yes Supervised Visit with DIANNE: Corey Gonzales Jan 10, 2017 16:17
--- NOTE | 2017-01-10 18:01 | PD ---
HPI . "I have diarrhea" Chief Complaint: GI Complaint Time Seen by Provider: 17:34 Travel History International Travel<30 days: No Contact w/Intl Traveler<30days: No Traveled to known affect area: No History of Present Illness HPI This is a 61 year old male with PMH of alcohol dependence and hepatitis C who presents to [place] via [facility] with 1 month of chronic diarrhea. He reports the diarrhea is constant and he has associated nausea, chills, night sweats. He reports no modifying factors. He denies any SOB, chest pain, or recorded fevers. He has recieved the diagnosis of colitis in the past. He has no PCP and takes no medications on a daily basis. He reports his last colonoscopy was 2-3 years ago but does not know the results. This patient was last seen here yesterday for suicidal ideation. He was gutierres acted and sent to [facility]. He did not report any physical complaints at that time. He has been seen here over 10 times in the last month and has left A over 3 times. PFSH Past Medical History Atrial Fibrillation: Yes Anxiety: Yes Depression: Yes Heart Rhythm Problems: No Cancer: No Cardiovascular Problems: No High Cholesterol: No Chest Pain: No Congestive Heart Failure: No Cerebrovascular Accident: No Diabetes: No Dialysis: No Diminished Hearing: No Endocrine: No Gastrointestinal Disorders: Yes (CDT colitis) GERD: No Genitourinary: No Hepatitis: Yes (HEP C) Hiatal Hernia: No Heparin Induced Thrombocytopen: No Hypertension: Yes Immune Disorder: No Implanted Vascular Access Dvce: No Kidney Stones: No Musculoskeletal: No Neurologic: No Psychiatric: No Reproductive: No Respiratory: No Immunizations Current: Yes Migraines: No Renal Failure: No Seizures: Yes (RELATED TO ALCOHOL WITHDRAW) Sickle Cell Disease: No Ulcer: No Tetanus Vaccination: < 5 Years Influenza Vaccination: No Past Surgical History Abdominal Surgery: No AICD: No Arteriovenous Shunt: No Cardiac Surgery: No Ear Surgery: No Endocrine Surgery: No Eye Surgery: No Genitourinary Surgery: No Gynecologic Surgery: No Insulin Pump: No Joint Replacement: No Neurologic Surgery: No Oral Surgery: Yes Pacemaker: No Thoracic Surgery: No Social History Alcohol Use: Yes (daily ) Tobacco Use: No (QUIT AFTER 40 PACK YEARS) Substance Use: No (PT DENIES) Allergies-Medications (Allergen,Severity, Reaction): Coded Allergies: No Known Allergies (Unverified , 01/09/17) Reported Meds & Prescriptions Reported Meds & Active Scripts Active Reported Ativan (Lorazepam) 1 Mg Tab 1 Mg PO Q8H PRN Review of Systems Except as stated in HPI: all other systems reviewed are Neg General / Constitutional: Positive: Chills, No: Fever HENT: No: Lightheadedness Cardiovascular: No: Chest Pain or Discomfort, Palpitations Respiratory: No: Cough, Shortness of Breath, Wheezing Gastrointestinal: Positive: Nausea, Diarrhea, Abdominal Pain, No: Vomiting, Hematemesis, Hematochezia, Changes in Bowel Habits Genitourinary: No: Urgency, Frequency, Dysuria, Incontinence Neurologic: No: Weakness, Dizziness, Syncope Psychiatric: Positive: Anxiety Physical Exam Narrative GENERAL: Thin and malnourished man who is lying on the exam bed in no acute distress. Alert and oriented 3 SKIN: Warm and dry. Sunburn on face, neck and arms HEAD: Atraumatic. Normocephalic. Temporal wasting EYES: Pupils equal and round. ENT: No nasal bleeding or discharge. Mucous membranes pink and moist. NECK: Trachea midline. No lymphadenopathy. CARDIOVASCULAR: Regular rate and rhythm. No murmurs or extra beats RESPIRATORY: No accessory muscle use. Clear on auscultation bilaterally GASTROINTESTINAL: Abdomen soft, non-tender, nondistended. Bowel sounds are normal. No tenderness in palpating with the stethoscope, marked tenderness when palpating with fingertips MUSCULOSKELETAL: No obvious deformities. No edema. NEUROLOGICAL: Awake and alert. No obvious cranial nerve deficits. Motor grossly within normal limits. Normal speech. PSYCHIATRIC: Flat affect Data Data Last Documented VS Vital Signs Date Time Temp Pulse Resp B/P (MAP) Pulse Ox O2 Delivery O2 Flow Rate FiO2 01/10/17 16:04 97.7 78 20 113/72 (86) 95 Room Air Orders Orders Complete Blood Count With Diff (01/10/17 16:15) Comprehensive Metabolic Panel (01/10/17 16:15) Lipase (01/10/17 16:15) Drug Screen, Random Urine (01/10/17 16:15) Alcohol (Ethanol) (01/10/17 16:15) Labs Laboratory Tests Test 01/10/17 17:45 White Blood Count 8.5 TH/MM3 Red Blood Count 3.92 MIL/MM3 Hemoglobin 13.1 GM/DL Hematocrit 39.1 % Mean Corpuscular Volume 99.6 FL Mean Corpuscular Hemoglobin 33.4 PG Mean Corpuscular Hemoglobin Concent 33.6 % Red Cell Distribution Width 14.8 % Platelet Count 195 TH/MM3 Mean Platelet Volume 6.7 FL Neutrophils (%) (Auto) 62.6 % Lymphocytes (%) (Auto) 26.6 % Monocytes (%) (Auto) 8.8 % Eosinophils (%) (Auto) 0.6 % Basophils (%) (Auto) 1.4 % Neutrophils # (Auto) 5.3 TH/MM3 Lymphocytes # (Auto) 2.3 TH/MM3 Monocytes # (Auto) 0.7 TH/MM3 Eosinophils # (Auto) 0.1 TH/MM3 Basophils # (Auto) 0.1 TH/MM3 CBC Comment DIFF FINAL Differential Comment MDM Medical Decision Making Medical Screen Exam Complete: Yes Emergency Medical Condition: Yes Medical Record Reviewed: Yes (this patient has been seen for intoxication and suicidal ideation over 10 times this past month, and he has left several times AMA, he was last Gutierres acted on 01-09) Differential Diagnosis Differential diagnosis of abdominal pain includes but is not limited to gastritis, pancreatitis, hepatitis, gastroenteritis, gallbladder disease, constipation, urinary retention, UTI, peptic ulcer disease, diverticulitis or appendicitis Narrative Course This is a 61 year old male with PMH of Hep C and chronic ETOH use. He complains of diffuse abdominal pain and diarrhea. He is hemodynamically stable and shows no signs of dehydration. He tolerated 3 packs of gram crackers and 1 cary westley with no vomiting during this visit. He is stable for discharge. The history, exam, diagnostic testing, and current condition do not suggest any significant pathology to warrant further testing, continued ED treatment, admission, or surgical evaluation at this point. The patient's condition is stable and appropriate for discharge. Diagnosis Primary Impression: Abdominal pain Qualified Codes: R10.84 - Generalized abdominal pain Additional Impression: Diarrhea Qualified Codes: R19.7 - Diarrhea, unspecified Patient Instructions: Abdominal Pain (ED), Chronic Diarrhea (DC), General Instructions Disposition: 01 DISCHARGE HOME Condition: Stable Nini Shepard MD Jan 10, 2017 18:01
[2017-01-10 18:16] LABS: AUTOMATED NEUTROPHIL # 5.3 TH/MM3 (1.8-7.7); BASOPHIL # 0.1 TH/MM3 (0-0.2); BASOPHIL % 1.4 % (0.0-2.0); EOSINOPHIL # 0.1 TH/MM3 (0-0.4); EOSINOPHIL % 0.6 % (0.0-4.0); HEMATOCRIT 39.1 % (39.0-51.0); HEMO FLAGS DIFF FINAL; LYMPH % 26.6 % (9.0-44.0); LYMPHOCYTE # 2.3 TH/MM3 (1.0-4.8); MEAN CELL VOLUME 99.6 FL (80.0-100.0); MEAN CORPUSCULAR HEMOGLOBIN 33.4 PG (27.0-34.0); MEAN CORPUSCULAR HGB CONC 33.6 % (32.0-36.0); MONO % 8.8 % (0.0-8.0); NEUT % 62.6 % (16.0-70.0); PLATELET COUNT 195 TH/MM3 (150-450); RED BLOOD COUNT 3.92 MIL/MM3 (4.50-5.90); RED CELL DISTRIBUTION WIDTH 14.8 % (11.6-17.2); WHITE BLOOD COUNT 8.5 TH/MM3 (4.0-11.0)
[2017-01-10 18:40] LABS: ANION GAP 10 MEQ/L (5-15); AST (GOT) 74 U/L (15-37); BICARBONATE 23.7 MEQ/L (21.0-32.0); BLOOD UREA NITROGEN 10 MG/DL (7-18); CHLORIDE 104 MEQ/L (98-107); GLOMERULAR FILTRATION RATE 96 ML/MIN (>89); POTASSIUM 3.6 MEQ/L (3.5-5.1); SODIUM (NA) 138 MEQ/L (136-145)
[2017-01-10 18:42] LABS: ALT (GPT) 68 U/L (12-78)
[2017-01-10 18:43] LABS: ALCOHOL 252 MG/DL (0-5); ALKALINE PHOSPHATASE 110 U/L (45-117); TOTAL BILIRUBIN ADULT 0.6 MG/DL (0.2-1.0)
== END 2017-01-10 19:07 | disposition home or self-care (01) ==
LOC: NEPC 15:48
DX: R10.84 Generalized abdominal pain (principal); R19.7 Diarrhea, unspecified; B19.20 Unspecified viral hepatitis C without hepatic coma; F41.9 Anxiety disorder, unspecified; Z79.899 Other long term (current) drug therapy
CPT/HCPCS: 80053; 80307; 83690; 85025; 99283

== ENCOUNTER 2017-01-11 05:26 | Emergency (ER) | payer SELFPAY ==
[~2017-01-11] VITALS: Ht 182.9 cm; Wt 71.0 kg
[~2017-01-11 05:26] MED LIST changes: -LORA-475 PO
[2017-01-11 05:29] VITALS: BP 104/63; PULSE 75; RESP 16; TEMP 97.4; O2SAT 97
[2017-01-11 05:45] VITALS: BP 111/73; PULSE 65; RESP 16; O2SAT 98
[2017-01-11] MEDS ORDERED: FAMOTIDINE 20 MG TAB PO ONE (05:45)
[2017-01-11] MEDS ORDERED: LIDOCAINE VISCOUS 2% SOLN 15 ML UDC SWISH-SWAL ONE (05:45)
[2017-01-11] MEDS ORDERED: ALUMINUM/MAGNESIUM/SIMETH 30 ML CUP PO ONE (05:45)
--- NOTE | 2017-01-11 06:37 | PD ---
HPI Chief Complaint: Chest Pain Time Seen by Provider: 05:43 Travel History International Travel<30 days: No Contact w/Intl Traveler<30days: No Traveled to known affect area: No History of Present Illness HPI 61-year-old white male well-known to the medical staff as well as myself due to alcohol abuse presents once again for evaluation. He was just seen earlier this afternoon and was discharged same present he complained of epigastric abdominal pain. He had a extensive workup including CBC, chemistry, lipase. The patient was treated and discharged. A detox bed was available for the patient but he opted not to go. The patient states that he had not drank alcohol since he was discharged. He returns a few hours later stating that he is once again having epigastric pain. He denies any fever or chills. Positive nausea but no vomiting. Positive epigastric pain. Sharp and crampy in nature. [id number]-[id number] in intensity. No fever or chills. No hematemesis. No melena. PFSH Past Medical History Medical History: Denies Significant Hx Atrial Fibrillation: Yes Anxiety: Yes Depression: Yes Heart Rhythm Problems: No Cancer: No Cardiovascular Problems: No High Cholesterol: No Chest Pain: No Congestive Heart Failure: No Cerebrovascular Accident: No Diabetes: No Dialysis: No Diminished Hearing: No Endocrine: No Gastrointestinal Disorders: Yes (Colitis) GERD: No Genitourinary: No Hepatitis: Yes (HEP C) Hiatal Hernia: No Heparin Induced Thrombocytopen: No Hypertension: Yes Immune Disorder: No Implanted Vascular Access Dvce: No Kidney Stones: No Musculoskeletal: No Neurologic: No Psychiatric: No Reproductive: No Respiratory: No Immunizations Current: Yes Migraines: No Renal Failure: No Seizures: Yes (RELATED TO ALCOHOL WITHDRAW) Sickle Cell Disease: No Ulcer: No Tetanus Vaccination: Unknown ?: Not Past Surgical History Surgical History: No Previous Surgery Abdominal Surgery: No AICD: No Arteriovenous Shunt: No Cardiac Surgery: No Ear Surgery: No Endocrine Surgery: No Eye Surgery: No Genitourinary Surgery: No Gynecologic Surgery: No Insulin Pump: No Joint Replacement: No Neurologic Surgery: No Oral Surgery: Yes Pacemaker: No Thoracic Surgery: No Social History Alcohol Use: Yes Tobacco Use: Yes Substance Use: No Allergies-Medications (Allergen,Severity, Reaction): Coded Allergies: No Known Allergies (Unverified , 01/11/17) Reported Meds & Prescriptions Reported Meds & Active Scripts Active Reported Ativan (Lorazepam) 1 Mg Tab 1 Mg PO Q8H PRN Review of Systems Except as stated in HPI: all other systems reviewed are Neg Physical Exam Narrative GENERAL: Well-developed, well-nourished in no acute distress. Nontoxic appearing. HEAD: Normocephalic, atraumatic. EYES: Pupils equal round and reactive. Extraocular motions intact. No scleral icterus. No injection or drainage. ENT: TMs clear without erythema. The external auditory canals clear. Nose: clear . Posterior pharynx is pink and moist. No tonsillar edema or exudate. Uvula midline. Airway patent. NECK: Trachea midline.Supple, nontender, moves head freely. No central bony tenderness or spasm. CARDIOVASCULAR: Regular rate and rhythm without murmurs, gallops, or rubs. RESPIRATORY: Clear to auscultation. Breath sounds equal bilaterally. No wheezes , rales, or rhonchi. GASTROINTESTINAL: Abdomen soft, non-tender, nondistended. No hepato-splenomegaly , or palpable masses. No guarding. EXTREMITIES: No clubbing, cyanosis, or edema. No joint tenderness, effusion, or edema noted. BACK: Nontender without deformity or crepitance. No flank tenderness. Data Data Last Documented VS Vital Signs Date Time Temp Pulse Resp B/P (MAP) Pulse Ox O2 Delivery O2 Flow Rate FiO2 01/11/17 05:45 65 16 111/73 (86) 98 Room Air 01/11/17 05:29 97.4 Orders Orders Al-Mag Hy-Si 40-40-4 Mg/Ml Liq (Mag-Al P (01/11/17 05:45) Lidocaine 2% Viscous (Xylocaine 2% Visco (01/11/17 05:45) Famotidine (Pepcid) (01/11/17 05:45) [facility] Medical Decision Making Medical Screen Exam Complete: Yes Emergency Medical Condition: Yes Medical Record Reviewed: Yes Differential Diagnosis Differential diagnoses: Abdominal pain, gastritis, peptic ulcer disease, pancreatitis, malingering Narrative Course Patient is given GI cocktail of Maalox and discuss lidocaine along with Pepcid 20 g by mouth. Patient has been resting comfortably examination room. Patient is medically cleared for discharge. He is advised not to continue alcohol and to follow-up with [facility] for detox. Diagnosis Primary Impression: Abdominal pain Qualified Codes: R10.9 - Unspecified abdominal pain Additional Impression: Alcoholic gastritis Qualified Codes: K29.20 - Alcoholic gastritis without bleeding Patient Instructions: General Instructions Additional Instructions: Rest. Increase fluids. Avoid alcohol. 2 Pepcid before meals twice daily Avoid illegal substances. Follow-up with [facility] for detox. Do not operate a car or any heavy machinery under the influence of alcohol or drugs. Follow-up with a medical doctor this week. Return to the ER for emergencies Med/Other Pt SpecificInfo: No Meds Exist/No RX given Disposition: 01 DISCHARGE HOME Condition: Stable Devon Luevano Jan 11, 2017 06:37
== END 2017-01-11 06:46 | disposition home or self-care (01) ==
LOC: NEPD 05:26
DX: K29.20 Alcoholic gastritis without bleeding (principal); F10.10 Alcohol abuse, uncomplicated; F17.290 Nicotine dependence, other tobacco product, uncomplicated
CPT/HCPCS: 99283

== ENCOUNTER 2017-01-11 11:38 | Emergency (ER) | payer SELFPAY ==
[~2017-01-11] VITALS: Ht 182.9 cm; Wt 75.0 kg
[2017-01-11 11:44] VITALS: BP 118/70; PULSE 74; RESP 15; TEMP 98.2; O2SAT 99
[2017-01-11 14:44] VITALS: BP 158/68; PULSE 92; RESP 18; TEMP 97.9; O2SAT 97
[2017-01-11 14:56] VITALS: BP 121/74; PULSE 56; RESP 18; O2SAT 98
--- NOTE | 2017-01-11 15:19 | PD ---
HPI Chief Complaint: Alcohol/Drug Intoxication Time Seen by Provider: 14:45 Travel History International Travel<30 days: No Contact w/Intl Traveler<30days: No Traveled to known affect area: No History of Present Illness HPI 61-year-old male returns to the ER. He drank alcohol today as he does every day. He reports intention to stop drinking alcohol. He has no medical complaint. Location generalized. Timing constant. Severity moderate. He denies any intention to hurt himself at the time of evaluation today. PFSH Past Medical History Atrial Fibrillation: Yes Anxiety: Yes Depression: Yes Heart Rhythm Problems: No Cancer: No Cardiovascular Problems: No High Cholesterol: No Chest Pain: No Congestive Heart Failure: No Cerebrovascular Accident: No Diabetes: No Dialysis: No Diminished Hearing: No Endocrine: No Gastrointestinal Disorders: Yes (Colitis) GERD: No Genitourinary: No Hepatitis: Yes (HEP C) Hiatal Hernia: No Heparin Induced Thrombocytopen: No Hypertension: Yes Immune Disorder: No Implanted Vascular Access Dvce: No Kidney Stones: No Musculoskeletal: No Neurologic: No Psychiatric: No Reproductive: No Respiratory: No Immunizations Current: Yes Migraines: No Renal Failure: No Seizures: Yes (RELATED TO ALCOHOL WITHDRAW) Sickle Cell Disease: No Ulcer: No Tetanus Vaccination: < 5 Years Influenza Vaccination: Yes Past Surgical History Abdominal Surgery: No AICD: No Arteriovenous Shunt: No Cardiac Surgery: No Ear Surgery: No Endocrine Surgery: No Eye Surgery: No Genitourinary Surgery: No Gynecologic Surgery: No Insulin Pump: No Joint Replacement: No Neurologic Surgery: No Oral Surgery: Yes Pacemaker: No Thoracic Surgery: No Social History Alcohol Use: Yes Tobacco Use: No Substance Use: No Allergies-Medications (Allergen,Severity, Reaction): Coded Allergies: No Known Allergies (Unverified , 01/11/17) Reported Meds & Prescriptions Reported Meds & Active Scripts Active Reported Ativan (Lorazepam) 1 Mg Tab 1 Mg PO Q8H PRN Review of Systems Except as stated in HPI: all other systems reviewed are Neg Physical Exam Narrative GENERAL: The patient is 61 years old, EtOH on breath, reasonably cooperative SKIN: Warm and dry. HEAD: Atraumatic. Normocephalic. EYES: Pupils equal and round. No scleral icterus. No injection or drainage. ENT: No nasal bleeding or discharge. Mucous membranes pink and moist. NECK: Trachea midline. No JVD. CARDIOVASCULAR: Regular rate and rhythm. RESPIRATORY: No accessory muscle use. Clear to auscultation. Breath sounds equal bilaterally. GASTROINTESTINAL: Abdomen soft, non-tender, nondistended. Hepatic and splenic margins not palpable. MUSCULOSKELETAL: Extremities without clubbing, cyanosis, or edema. No obvious deformities. NEUROLOGICAL: Awake and alert. Speaking full sentences in all extremities in coordinated fashion. PSYCHIATRIC: EtOH on breath. Denies suicidal ideation. Data Data Last Documented VS Vital Signs Date Time Temp Pulse Resp B/P (MAP) Pulse Ox O2 Delivery O2 Flow Rate FiO2 01/11/17 14:56 56 18 121/74 (90) 98 Room Air 01/11/17 14:44 97.9 Vital signs reviewed MDM Medical Decision Making Medical Screen Exam Complete: Yes Emergency Medical Condition: Yes Medical Record Reviewed: Yes Differential Diagnosis Alcohol intoxication, alcoholism, alcohol withdrawal, malingering Narrative Course Patient requests leaving AMA. He has a normal gait. He is intoxicated with alcohol however he drinks daily. Consequently the patient is at his baseline and in this scenario considered competent for discharge AGAINST MEDICAL ADVICE. He states he knows where the [facility] as and will go there. Diagnosis Primary Impression: Alcohol abuse Additional Impression: Left against medical advice Referrals: [facility] 2 days Additional Instructions: n/a Med/Other Pt SpecificInfo: No Change to Meds Disposition: 07 AGAINST MEDICAL ADVICE Condition: Zackary Del Real MD Jan 11, 2017 15:19
== END 2017-01-12 02:54 | disposition left against medical advice (07) ==
LOC: NEPD 11:38
DX: F10.10 Alcohol abuse, uncomplicated (principal)
CPT/HCPCS: 99281

== ENCOUNTER 2017-01-11 20:59 | Emergency (ER) | payer SELFPAY ==
[~2017-01-11] VITALS: Ht 182.9 cm; Wt 72.7 kg
[2017-01-11 21:12] VITALS: BP 120/67; PULSE 92; RESP 14; TEMP 98.6; O2SAT 96
--- NOTE | 2017-01-11 21:49 | PD ---
Physical Exam Time Seen by Provider: 21:47 Narrative 61yo M seen here earlier today for help with ETOH abuse. He now returns saying he feels like he is going to have a seizure. Patient seen in triage. VS reviewed. Awaiting bed placement. Data Data Last Documented VS Vital Signs Date Time Temp Pulse Resp B/P (MAP) Pulse Ox O2 Delivery O2 Flow Rate FiO2 01/11/17 21:12 98.6 92 14 120/67 (84) 96 Room Air [facility] Supervised Visit with DIANNE: Vangie Juarez Jan 11, 2017 21:49
--- NOTE | 2017-01-11 23:26 | PD ---
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 CURRENTLY DOESN'T FEEL SHAKY, HAS NO HALLUCINATIONS. PFSH Past Medical History Atrial Fibrillation: Yes Anxiety: Yes Depression: Yes Heart Rhythm Problems: No Cancer: No Cardiovascular Problems: No High Cholesterol: No Chest Pain: No Congestive Heart Failure: No Cerebrovascular Accident: No Diabetes: No Dialysis: No Diminished Hearing: No Endocrine: No Gastrointestinal Disorders: Yes (Colitis) GERD: No Genitourinary: No Hepatitis: Yes (HEP C) Hiatal Hernia: No Heparin Induced Thrombocytopen: No Hypertension: Yes Immune Disorder: No Implanted Vascular Access Dvce: No Kidney Stones: No Musculoskeletal: No Neurologic: No Psychiatric: No Reproductive: No Respiratory: No Immunizations Current: Yes Migraines: No Renal Failure: No Seizures: Yes (RELATED TO ALCOHOL WITHDRAW) Sickle Cell Disease: No Ulcer: No Past Surgical History Abdominal Surgery: No AICD: No Arteriovenous Shunt: No Cardiac Surgery: No Ear Surgery: No Endocrine Surgery: No Eye Surgery: No Genitourinary Surgery: No Gynecologic Surgery: No Insulin Pump: No Joint Replacement: No Neurologic Surgery: No Oral Surgery: Yes Pacemaker: No Thoracic Surgery: No Social History Alcohol Use: Yes Tobacco Use: No Substance Use: No Allergies-Medications (Allergen,Severity, Reaction): Coded Allergies: No Known Allergies (Unverified , 01/11/17) Reported Meds & Prescriptions Reported Meds & Active Scripts Active Reported Ativan (Lorazepam) 1 Mg Tab 1 Mg PO Q8H PRN Review of Systems Except as stated in HPI: all other systems reviewed are Neg Physical Exam Narrative GENERAL: POORLY KEPT, DISHEVELED APPEARANCE SKIN: Warm and dry. HEAD: Atraumatic. Normocephalic. EYES: Pupils equal and round. No scleral icterus. No injection or drainage. ENT: No nasal bleeding or discharge. Mucous membranes pink and moist. NECK: Trachea midline. No JVD. CARDIOVASCULAR: Regular rate and rhythm. RESPIRATORY: No accessory muscle use. Clear to auscultation. Breath sounds equal bilaterally. GASTROINTESTINAL: Abdomen soft, non-tender, nondistended. Hepatic and splenic margins not palpable. MUSCULOSKELETAL: Extremities without clubbing, cyanosis, or edema. No obvious deformities. NEUROLOGICAL: Awake and alert. No obvious cranial nerve deficits. Motor grossly within normal limits. Five out of 5 muscle strength in the arms and legs. Normal speech. PSYCHIATRIC: Appropriate mood and affect; insight and judgment normal. Data Data Last Documented VS Vital Signs Date Time Temp Pulse Resp B/P (MAP) Pulse Ox O2 Delivery O2 Flow Rate FiO2 01/11/17 21:12 98.6 92 14 120/67 (84) 96 Room Air Orders Orders Orthostatic Vital Signs (01/11/17 23:02) Blood Glucose (01/11/17 23:02) Chlordiazepoxide (Librium) (01/12/17 00:30) MDM Medical Decision Making Medical Screen Exam Complete: Yes Emergency Medical Condition: Yes Medical Record Reviewed: Yes Differential Diagnosis HYPOGLYCEMIA V ORTHOSTATIC V ETOH ABUSE Narrative Course PATIENT HAS HAD MULTIPLE CLEARANCES JUST SINCE JANUARY 08 HE HAS HAD 7 VISITS TO ED, IN WHICH TIME HE HAS HAD MULTIPLE CBC'S, CMP'S, ETOH LEVELS AND HAS AT NO POINT GONE INTO WITDRAWAL IN THE DEPARTMENT AT ALL. Diagnosis Primary Impression: Alcohol abuse Additional Impression: MEDICALLY CLEAR Patient Instructions: General Instructions Additional Instructions: KEEP YOUR APPOINTMENT WITH [facility] AND WE WISH YOU MUCH SUCCESS ON DETOX PROCESS. Disposition: 01 DISCHARGE HOME Condition: Stable aPblo Rush MD Jan 11, 2017 23:26
[2017-01-12] MEDS ORDERED: chlordiazePOXIDE 25 MG CAP PO ONE (00:30)
== END 2017-01-12 00:43 | disposition home or self-care (01) ==
LOC: NEPD 20:59
DX: F10.10 Alcohol abuse, uncomplicated (principal)
CPT/HCPCS: 99283

== ENCOUNTER 2017-01-13 15:11 | Emergency (ER) | payer SELFPAY ==
[~2017-01-13] VITALS: Ht 182.9 cm; Wt 81.0 kg
[2017-01-13 15:34] VITALS: BP 126/67; PULSE 89; RESP 18; TEMP 98.4; O2SAT 98
--- NOTE | 2017-01-13 15:59 | PD ---
HPI Chief Complaint: Psychiatric Symptoms Time Seen by Provider: 15:37 Travel History International Travel<30 days: No Contact w/Intl Traveler<30days: No Traveled to known affect area: No History of Present Illness HPI 61-year-old male who is well-known to the emergency department presents to the emergency department via EMS and from [facility]. Patient states he sad and depressed, but has no suicidal thoughts or plan to hurt himself at this time. He Reports history of alcohol abuse. He has drank a half a gallon of vodka today. He states he was at [facility] for alcohol detox. However, they do not have a bed available at this time. He states they will have a bed available on and he'll return at that time. Patient states that he is going to get help or he is going to lose his and children. He denies any physical complaints to me at this time. PFSH Past Medical History Atrial Fibrillation: Yes Anxiety: Yes Depression: Yes Heart Rhythm Problems: No Cancer: No Cardiovascular Problems: No High Cholesterol: No Chest Pain: No Congestive Heart Failure: No Cerebrovascular Accident: No Diabetes: No Dialysis: No Diminished Hearing: No Endocrine: No Gastrointestinal Disorders: Yes (Colitis) GERD: No Genitourinary: No Hepatitis: Yes (HEP C) Hiatal Hernia: No Heparin Induced Thrombocytopen: No Hypertension: Yes Immune Disorder: No Implanted Vascular Access Dvce: No Kidney Stones: No Musculoskeletal: No Neurologic: No Psychiatric: No Reproductive: No Respiratory: No Immunizations Current: Yes Migraines: No Renal Failure: No Seizures: Yes (RELATED TO ALCOHOL WITHDRAW) Sickle Cell Disease: No Ulcer: No Past Surgical History Abdominal Surgery: No AICD: No Arteriovenous Shunt: No Cardiac Surgery: No Ear Surgery: No Endocrine Surgery: No Eye Surgery: No Genitourinary Surgery: No Gynecologic Surgery: No Insulin Pump: No Joint Replacement: No Neurologic Surgery: No Oral Surgery: Yes Pacemaker: No Thoracic Surgery: No Social History Alcohol Use: Yes Tobacco Use: No Substance Use: No Allergies-Medications (Allergen,Severity, Reaction): Coded Allergies: No Known Allergies (Unverified , 01/13/17) Reported Meds & Prescriptions Reported Meds & Active Scripts Active Reported Ativan (Lorazepam) 1 Mg Tab 1 Mg PO Q8H PRN Review of Systems Except as stated in HPI: all other systems reviewed are Neg Physical Exam Narrative GENERAL: Disheveled male patient, afebrile. SKIN: Focused skin assessment warm/dry. HEAD: Normocephalic. Atraumatic. EYES: No scleral icterus. No injection or drainage. NECK: Supple, trachea midline. No JVD or lymphadenopathy. CARDIOVASCULAR: Regular rate and rhythm without murmurs, gallops, or rubs. RESPIRATORY: Breath sounds equal bilaterally. No accessory muscle use. Lungs sounds are clear to auscultation. GASTROINTESTINAL: Abdomen soft, non-tender, nondistended. MUSCULOSKELETAL: No cyanosis, or edema. PSYCHIATRIC: No delusional thought processes. No hallucinations. Data Data Last Documented VS Vital Signs Date Time Temp Pulse Resp B/P (MAP) Pulse Ox O2 Delivery O2 Flow Rate FiO2 01/13/17 15:35 89 17 01/13/17 15:34 98.4 126/67 (86) 98 MDM Medical Decision Making Medical Screen Exam Complete: Yes Emergency Medical Condition: Yes Medical Record Reviewed: Yes Differential Diagnosis Alcohol intoxication versus depression versus anxiety Narrative Course 61-year-old male is well known to the emergency department presents to the emergency department for depression and alcohol detox. He states that [facility] will have a bed available for him on . He plans to follow-up then. He has no physical complaints at this time. Patient is sad and depressed , but no suicidal thoughts. Patient will be discharged when clinically sober. The patient was discharged in stable condition with instructions, including return instructions and follow up instructions. Diagnosis Primary Impression: Alcohol abuse Referrals: [facility] Patient Instructions: Abuse of Alcohol (ED), General Instructions Additional Instructions: Follow-up at [facility]. Return to the emergency department for any acute worsening of symptoms. Med/Other Pt SpecificInfo: No Change to Meds Disposition: 01 DISCHARGE HOME Condition: Stable Luciana Sellers JEVON Jan 13, 2017 15:59
[2017-01-13 16:10] VITALS: BP 130/77; TEMP 98
== END 2017-01-13 16:10 | disposition home or self-care (01) ==
LOC: NEPD 15:11
DX: F10.10 Alcohol abuse, uncomplicated (principal)
CPT/HCPCS: 99281

== ENCOUNTER 2017-01-13 19:27 | Emergency (ER) | payer SELFPAY ==
[~2017-01-13] VITALS: Ht 182.9 cm; Wt 72.0 kg
[2017-01-13 19:33] VITALS: BP 154/82; PULSE 98; RESP 14; TEMP 98.9; O2SAT 98
--- NOTE | 2017-01-13 19:48 | PD ---
HPI Chief Complaint: Alcohol/Drug Intoxication Time Seen by Provider: 19:46 Travel History International Travel<30 days: No Contact w/Intl Traveler<30days: No Traveled to known affect area: No History of Present Illness HPI 61-year-old male who is well-known to the emergency department comes to the emergency department stating that he thinks he is withdrawing from alcohol. Patient was seen earlier today as well. He states that he has drank half a gallon of vodka today. Patient is not tachycardic. He has no tremors noted. Patient states that he is waiting for his bed from [facility] for detox. He reports depression, but no suicidal ideation. He has no other complaints at this time. PFSH Past Medical History Atrial Fibrillation: Yes Blood Disorders: No Anxiety: Yes Depression: Yes Heart Rhythm Problems: No Cancer: No Cardiovascular Problems: No High Cholesterol: No Chest Pain: No Congestive Heart Failure: No Cerebrovascular Accident: No Diabetes: No Dialysis: No Diminished Hearing: No Endocrine: No Gastrointestinal Disorders: Yes (Colitis) GERD: No Genitourinary: No Hepatitis: Yes (HEP C) Hiatal Hernia: No Heparin Induced Thrombocytopen: No Hypertension: Yes Immune Disorder: No Implanted Vascular Access Dvce: No Kidney Stones: No Musculoskeletal: No Neurologic: No Psychiatric: No Reproductive: No Respiratory: No Immunizations Current: Yes Migraines: No Renal Failure: No Seizures: Yes (RELATED TO ALCOHOL WITHDRAW) Sickle Cell Disease: No Ulcer: No Tetanus Vaccination: < 5 Years Influenza Vaccination: Yes Past Surgical History Abdominal Surgery: No AICD: No Arteriovenous Shunt: No Cardiac Surgery: No Ear Surgery: No Endocrine Surgery: No Eye Surgery: No Genitourinary Surgery: No Gynecologic Surgery: No Insulin Pump: No Joint Replacement: No Neurologic Surgery: No Oral Surgery: Yes Pacemaker: No Thoracic Surgery: No Social History Alcohol Use: Yes (EVERY DAY ) Tobacco Use: No Substance Use: No (PT DENIES) Allergies-Medications (Allergen,Severity, Reaction): Coded Allergies: No Known Allergies (Unverified , 01/13/17) Reported Meds & Prescriptions Reported Meds & Active Scripts Active Reported Ativan (Lorazepam) 1 Mg Tab 1 Mg PO Q8H PRN Review of Systems Except as stated in HPI: all other systems reviewed are Neg Physical Exam Narrative GENERAL: Disheveled male patient. SKIN: Focused skin assessment warm/dry. HEAD: Normocephalic. EYES: No scleral icterus. No injection or drainage. NECK: Supple, trachea midline. No JVD or lymphadenopathy. CARDIOVASCULAR: Regular rate and rhythm without murmurs, gallops, or rubs. RESPIRATORY: Breath sounds equal bilaterally. No accessory muscle use. Lungs sounds are clear to auscultation. GASTROINTESTINAL: Abdomen soft, non-tender, nondistended. MUSCULOSKELETAL: No cyanosis, or edema. BACK: Nontender without obvious deformity. No CVA tenderness. Data Data Last Documented VS Vital Signs Date Time Temp Pulse Resp B/P (MAP) Pulse Ox O2 Delivery O2 Flow Rate FiO2 01/13/17 19:50 01/13/17 19:33 98.9 98 14 98 Room Air [facility] Medical Decision Making Medical Screen Exam Complete: Yes Emergency Medical Condition: Yes Medical Record Reviewed: Yes Differential Diagnosis Alcohol abuse versus malingering versus depression Narrative Course This is a 61-year-old male who is well-known to the emergency department for alcohol abuse. The patient has no evidence of alcohol withdrawal and he states that he drank half a gallon of vodka today. The patient is to follow up at [facility]. The patient was discharged in stable condition with instructions, including return instructions and follow up instructions. Diagnosis Primary Impression: Alcohol abuse Referrals: [facility] call for appointment Patient Instructions: Abuse of Alcohol (ED), General Instructions Additional Instructions: Follow up at [facility]. Return to the emergency department for any acute, worsening of symptoms. Med/Other Pt SpecificInfo: No Change to Meds Disposition: 01 DISCHARGE HOME Condition: Stable Luciana Sellers Jan 13, 2017 19:48
== END 2017-01-13 19:52 | disposition home or self-care (01) ==
LOC: NEPD 19:27
DX: F10.10 Alcohol abuse, uncomplicated (principal)
CPT/HCPCS: 99281

== ENCOUNTER 2017-01-14 10:15 | Emergency (ER) | payer SELFPAY ==
[~2017-01-14] VITALS: Ht 182.9 cm; Wt 74.0 kg
[2017-01-14 10:35] VITALS: BP 163/85; PULSE 82; RESP 18; TEMP 98.3; O2SAT 96
--- NOTE | 2017-01-14 11:02 | PD ---
HPI Chief Complaint: Psychiatric Symptoms Time Seen by Provider: 10:50 Travel History International Travel<30 days: No Contact w/Intl Traveler<30days: No Traveled to known affect area: No History of Present Illness HPI 61-year-old male presents to the emergency Department under Gutier[place] act by local police. Patient is well-known to this emergency department for alcohol abuse, depression. The patient wants help to quit drinking his alcohol. When asked where he is here he states "I can't quit drinking". He has a bed available at [facility] on according to him. He states he is concerned of losing his and daughter if he does not quit drinking. The patient reports drinking half a gallon of vodka today. He reports depression, but no plan to hurt himself at this time. Patient denies any chronic medical problems or take any prescribed medications. Denies any illicit drug use. PFSH Past Medical History Atrial Fibrillation: Yes Blood Disorders: No Anxiety: Yes Depression: Yes Heart Rhythm Problems: No Cancer: No Cardiovascular Problems: No High Cholesterol: No Chest Pain: No Congestive Heart Failure: No Cerebrovascular Accident: No Diabetes: No Dialysis: No Diminished Hearing: No Endocrine: No Gastrointestinal Disorders: Yes (Colitis) GERD: No Genitourinary: No Hepatitis: Yes (HEP C) Hiatal Hernia: No Heparin Induced Thrombocytopen: No Hypertension: Yes Immune Disorder: No Implanted Vascular Access Dvce: No Kidney Stones: No Musculoskeletal: No Neurologic: No Psychiatric: No Reproductive: No Respiratory: No Immunizations Current: Yes Migraines: No Renal Failure: No Seizures: Yes (RELATED TO ALCOHOL WITHDRAW) Sickle Cell Disease: No Ulcer: No Past Surgical History Abdominal Surgery: No AICD: No Arteriovenous Shunt: No Cardiac Surgery: No Ear Surgery: No Endocrine Surgery: No Eye Surgery: No Genitourinary Surgery: No Gynecologic Surgery: No Insulin Pump: No Joint Replacement: No Neurologic Surgery: No Oral Surgery: Yes Pacemaker: No Thoracic Surgery: No Social History Alcohol Use: Yes (EVERY DAY ) Tobacco Use: No Substance Use: No Allergies-Medications (Allergen,Severity, Reaction): Coded Allergies: Penicillins (Verified Allergy, Unknown, 01/14/17) Reported Meds & Prescriptions Reported Meds & Active Scripts Active Review of Systems Except as stated in HPI: all other systems reviewed are Neg Physical Exam Narrative GENERAL: Disheveled male patient, afebrile. SKIN: Focused skin assessment warm/dry. HEAD: Normocephalic. Atraumatic. EYES: No scleral icterus. No injection or drainage. NECK: Supple, trachea midline. No JVD or lymphadenopathy. CARDIOVASCULAR: Regular rate and rhythm without murmurs, gallops, or rubs. Bilateral radial and pedal pulses are 2+ RESPIRATORY: Breath sounds equal bilaterally. No accessory muscle use. Lungs sounds are clear to auscultation. GASTROINTESTINAL: Abdomen soft, non-tender, nondistended. MUSCULOSKELETAL: No cyanosis, or edema. PSYCHIATRIC: No delusional thought processes. No hallucinations. Data Data Last Documented VS Vital Signs Date Time Temp Pulse Resp B/P (MAP) Pulse Ox O2 Delivery O2 Flow Rate FiO2 01/14/17 10:35 98.3 82 18 163/85 (111) 96 MDM Medical Decision Making Medical Screen Exam Complete: Yes Emergency Medical Condition: Yes Medical Record Reviewed: Yes Differential Diagnosis Alcohol abuse versus alcohol intoxication versus depression versus anxiety Narrative Course 61-year-old male presents to the emergency department stating that he wants to quit drinking. According to him, he will have a bed available at [facility] on . I examined the patient twice yesterday as well for the same issue. He reports drinking half a gallon of vodka today. My attending physician, Dr. Ricks, will lift Gutierres Act as patient is not a harm to himself. He examined patient as well. Patient is instructed to follow up at [facility]. He is to return here for any acute, worsening of symptoms. Diagnosis Primary Impression: Alcohol abuse Referrals: [facility] Patient Instructions: Abuse of Alcohol (ED), General Instructions Additional Instructions: Follow-up at [facility]. Return to the emergency department for any acute worsening of symptoms. Med/Other Pt SpecificInfo: No Change to Meds Disposition: 01 DISCHARGE HOME Condition: Stable MarloLuciana Jan 14, 2017 11:02
--- NOTE | 2017-01-14 11:06 | PD ---
Data Data Last Documented VS Vital Signs Date Time Temp Pulse Resp B/P (MAP) Pulse Ox O2 Delivery O2 Flow Rate FiO2 01/14/17 10:35 98.3 82 18 163/85 (111) 96 MDM Supervised Visit with DIANNE: Yes Narrative Course The history, exam, and medical decision-making in the associated mid-level provider note were completed with my assistance. I reviewed and agree with the findings presented. I attest that I had a [id number] encounter with the patient on the same day, and personally performed and documented my assessment and findings in the medical record. *My assessment and Findings: 61-year-old man, well-known to myself in the ED, here under a Gutierres act. He has a history of alcoholism. He is due to get a bed at [facility] in another few days. He is well-known to myself and the PA, in my experience and judgment patient is not an immediate threat to himself or others. Gutierres act will be lifted and he'll be discharged. Diagnosis Primary Impression: Alcohol abuse Additional Instruction: Follow-up with [facility] as planned. Disposition: 01 DISCHARGE HOME Condition: Stable Darinel Ricks MD Jan 14, 2017 11:06
== END 2017-01-14 11:23 | disposition home or self-care (01) ==
LOC: NEPD 10:15
DX: F10.10 Alcohol abuse, uncomplicated (principal)
CPT/HCPCS: 99281

== ENCOUNTER 2017-01-14 13:07 | Emergency (ER) | payer SELFPAY ==
[2017-01-14 13:09] VITALS: BP 129/69; PULSE 84; RESP 20; TEMP 98.6; O2SAT 97
--- NOTE | 2017-01-14 13:34 | PD ---
HPI Chief Complaint: Chest Pain Time Seen by Provider: 13:22 Travel History International Travel<30 days: No Contact w/Intl Traveler<30days: No Traveled to known affect area: No History of Present Illness HPI 61-year-old man seen daily in the ED for various complaints usually alcohol intoxication, psych, abdominal pain, or chest pain, presents emergent heart complaining of chest pain. He was just seen and discharged a few minutes ago. Chest pains been worse. History Past Medical History Narrative Medical Hepatitis C Alcoholism Social History Alcohol Use: Yes (EVERY DAY ) Tobacco Use: No Allergies-Medications (Allergen,Severity, Reaction): Coded Allergies: Penicillins (Verified Allergy, Unknown, 01/14/17) Reported Meds & Prescriptions Reported Meds & Active Scripts Active Review of Systems Except as stated in HPI: all other systems reviewed are Neg Physical Exam Narrative GENERAL: 61-year-old man, disheveled and dirty. Wearing paper hospital scrubs. SKIN: Focused skin assessment warm/dry. HEAD: Atraumatic. Normocephalic. CARDIOVASCULAR: Regular rate and rhythm. No murmur appreciated. RESPIRATORY: No accessory muscle use. Clear to auscultation. Breath sounds equal bilaterally. GASTROINTESTINAL: Abdomen soft, non-tender, nondistended. Hepatic and splenic margins not palpable. MUSCULOSKELETAL: No obvious deformities. No edema. NEUROLOGICAL: Awake and alert. No obvious cranial nerve deficits. Motor grossly within normal limits. Normal speech. PSYCHIATRIC: Appropriate mood and affect; insight and judgment normal. Data Data Last Documented VS Vital Signs Date Time Temp Pulse Resp B/P (MAP) Pulse Ox O2 Delivery O2 Flow Rate FiO2 01/14/17 13:09 98.6 84 20 129/69 (89) 97 Room Air Orders Orders Electrocardiogram (01/14/17 ) [facility] Medical Decision Making Medical Screen Exam Complete: Yes Emergency Medical Condition: Yes Differential Diagnosis ACS, malingering, gastritis, other Narrative Course Medical decision making 61-year-old male, history of alcoholism and malingering, here complaining of chest pain. History of daily ED visits for some time. Seen here earlier and discharged. EKG is unchanged from baseline. No further evaluation at this time. Diagnosis Primary Impression: Malingering Additional Impression: Chest pain Additional Instructions: Follow-up with [facility] as planned. Med/Other Pt SpecificInfo: No Change to Meds Disposition: 01 DISCHARGE HOME Condition: Stable Darinel Ricks MD Jan 14, 2017 13:33
--- NOTE | 2017-01-15 15:14 | EKG ---
Date Performed: 01/14/2017 Time Performed: 13:25:38 PTAGE: 61 years EKG: Sinus rhythm NORMAL ECG PREVIOUS TRACING : 01/04/2017 20.48 Since previous tracing, no significant change noted DOCTOR: Felix Kramer Interpretating Date/Time 01/15/2017 15:11:39
== END 2017-01-14 14:00 | disposition home or self-care (01) ==
LOC: NETRI 13:07
DX: Z76.5 Malingerer [conscious simulation] (principal); R07.9 Chest pain, unspecified; F10.20 Alcohol dependence, uncomplicated
CPT/HCPCS: 93005; 99283

== ENCOUNTER 2017-01-14 16:49 | Emergency (ER) | payer OTHER ==
[~2017-01-14] VITALS: Ht 182.9 cm; Wt 75.0 kg
--- NOTE | 2017-01-14 17:05 | PD ---
HPI Chief Complaint: alcohol abuse Time Seen by Provider: 17:01 Travel History International Travel<30 days: No Contact w/Intl Traveler<30days: No Traveled to known affect area: No History of Present Illness HPI The patient is a 61-year-old male who presents to the emergency department via [facility] Department for alcohol abuse. The patient has been seen twice earlier today for his alcohol abuse and chest pain. The patient states he has a history of alcohol abuse, was seen in the emergency department twice this morning and subsequently discharged. The patient states he immediately started drinking vodka and then went to [facility] where he made suicidal threats to a humane officer was placed under a Gutierres act. Patient has a long-standing history of alcohol abuse and substance induced mood disorder. The patient denies any current physical complaints. PFSH Past Medical History Atrial Fibrillation: Yes Blood Disorders: No Anxiety: Yes Depression: Yes Heart Rhythm Problems: No Cancer: No Cardiovascular Problems: No High Cholesterol: No Chest Pain: No Congestive Heart Failure: No Cerebrovascular Accident: No Diabetes: No Dialysis: No Diminished Hearing: No Endocrine: No Gastrointestinal Disorders: Yes (Colitis) GERD: No Genitourinary: No Hepatitis: Yes (HEP C) Hiatal Hernia: No Heparin Induced Thrombocytopen: No Hypertension: Yes Immune Disorder: No Implanted Vascular Access Dvce: No Kidney Stones: No Musculoskeletal: No Neurologic: No Psychiatric: No Reproductive: No Respiratory: No Immunizations Current: Yes Migraines: No Renal Failure: No Seizures: Yes (RELATED TO ALCOHOL WITHDRAW) Sickle Cell Disease: No Ulcer: No Past Surgical History Abdominal Surgery: No AICD: No Arteriovenous Shunt: No Cardiac Surgery: No Ear Surgery: No Endocrine Surgery: No Eye Surgery: No Genitourinary Surgery: No Gynecologic Surgery: Yes Insulin Pump: No Joint Replacement: No Neurologic Surgery: No Oral Surgery: Yes Pacemaker: No Thoracic Surgery: No Social History Alcohol Use: Yes (EVERY DAY ) Tobacco Use: Yes Substance Use: No Allergies-Medications (Allergen,Severity, Reaction): Coded Allergies: Penicillins (Verified Allergy, Unknown, 01/14/17) Reported Meds & Prescriptions Reported Meds & Active Scripts Active Review of Systems Except as stated in HPI: all other systems reviewed are Neg Cardiovascular: No: Chest Pain or Discomfort Respiratory: No: Shortness of Breath Gastrointestinal: No: Nausea, Vomiting, Abdominal Pain Psychiatric: Positive: Substance Abuse (alcohol abuse) Physical Exam Narrative GENERAL: Awake, alert, nontoxic-appearing 61-year-old male who appears older than his stated age but is in no acute respiratory distress. Disheveled appearance. SKIN: Focused skin assessment warm/dry. HEAD: Atraumatic. Normocephalic. EYES: Mild injection bilaterally. ENT: No nasal bleeding or discharge. Mucous membranes pink and moist. NECK: Trachea midline. No JVD. CARDIOVASCULAR: Regular rate and rhythm. No murmur appreciated. RESPIRATORY: No accessory muscle use. Clear to auscultation. Breath sounds equal bilaterally. GASTROINTESTINAL: Abdomen soft, non-tender, nondistended. MUSCULOSKELETAL: No obvious deformities. No clubbing. No cyanosis. No edema. NEUROLOGICAL: Awake and alert. No obvious cranial nerve deficits. Motor grossly within normal limits. Normal speech. Nonfocal. PSYCHIATRIC: Appropriate mood and affect; insight and judgment normal. Data Data Last Documented VS Vital Signs Date Time Temp Pulse Resp B/P (MAP) Pulse Ox O2 Delivery O2 Flow Rate FiO2 01/14/17 17:48 17 01/14/17 17:11 97.4 79 156/87 (110) 99 Orders Orders Basic Metabolic Panel (Bmp) (01/14/17 17:11) Alcohol (Ethanol) (01/14/17 17:11) Psych Screen (01/14/17 17:11) Labs Laboratory Tests Test 01/14/17 17:30 Blood Urea Nitrogen 4 MG/DL Creatinine 0.97 MG/DL Random Glucose 162 MG/DL Calcium Level 7.8 MG/DL Sodium Level 146 MEQ/L Potassium Level 3.4 MEQ/L Chloride Level 113 MEQ/L Carbon Dioxide Level 22.8 MEQ/L Anion Gap 10 MEQ/L Estimat Glomerular Filtration Rate 79 ML/MIN Ethyl Alcohol Level 495 MG/DL [facility] Medical Decision Making Medical Screen Exam Complete: Yes Emergency Medical Condition: Yes Medical Record Reviewed: Yes Interpretation(s) Laboratory Tests Test 01/14/17 17:30 Blood Urea Nitrogen 4 MG/DL Creatinine 0.97 MG/DL Random Glucose 162 MG/DL Calcium Level 7.8 MG/DL Sodium Level 146 MEQ/L Potassium Level 3.4 MEQ/L Chloride Level 113 MEQ/L Carbon Dioxide Level 22.8 MEQ/L Anion Gap 10 MEQ/L Estimat Glomerular Filtration Rate 79 ML/MIN Ethyl Alcohol Level 495 MG/DL Differential Diagnosis Differential diagnoses includes alcohol dependency, alcohol abuse, alcohol intoxication, substance induced mood disorder, polysubstance abuse, malingering. Narrative Course The patient has been evaluated in the emergency department already twice today. The patient states when he left the hospital earlier today he started drinking once again. The patient went to [place] [employer] [place] humane officer that he was suicidal who subsequently placed him under a Gutierres act. Therefore, BMP and alcohol level were sent to lab, psychiatric evaluation was ordered. I had a long discussion with the patient regarding possible malingering and alcohol abuse. The patient's alcohol level is 495, he will be allowed to sleep it off until sober enough to be evaluated by psychiatry. Disposition as per psych. Diagnosis Primary Impression: Substance induced mood disorder Additional Impression: Alcohol dependence with acute alcoholic intoxication Qualified Codes: F10.220 - Alcohol dependence with intoxication, uncomplicated Condition: Stable Guillermo De La Fuente MD Jan 14, 2017 17:05
[2017-01-14 17:11] VITALS: BP 156/87; PULSE 79; RESP 17; TEMP 97.4; O2SAT 99
[2017-01-14 17:54] LABS: BICARBONATE 22.8 MEQ/L (21.0-32.0); POTASSIUM 3.4 MEQ/L (3.5-5.1)
[2017-01-14 18:59] VITALS: BP 156/67; PULSE 87; RESP 17; TEMP 98.2; O2SAT 98
[2017-01-15 04:48] VITALS: BP 141/72; PULSE 81; RESP 18; O2SAT 96
[2017-01-15] MEDS ORDERED: LORazepam 2 MG/ML VIAL IV PUSH PRN ×4 (09:45)
[2017-01-15] MEDS ORDERED: FLUMAZENIL 0.5 MG/5 ML VIAL IV PUSH PRN (09:45)
[2017-01-15] MEDS ORDERED: LORazepam 2 MG TAB PO PRN (09:45)
[2017-01-15] MEDS ORDERED: LORazepam 1 MG TAB PO PRN (09:45)
[2017-01-15 09:46] VITALS: BP 143/73; PULSE 71; RESP 18; O2SAT 97
--- NOTE | 2017-01-15 10:15 | PD ---
History of Present Illness Chief Complaint: Psychiatric Symptoms Time Seen by Provider: 10:10 Travel History International Travel<30 Days: No Contact w/Intl Traveler<30days: No Known affected area: No Legal Status Legal Status: Gutierres Act Gutierres Act Signed By: Radha Fermin History of Present Illness: History of Present Illness HPI The patient is a 61-year-old male with history of alcohol dependence, substance induced mood disorder, known to [facility] from multiple ed visits who presents to the emergency department via [employer] under a Gutierres act. As per the Gutierres act the police responded in reference to a suicidal person who reported he wanted to kill himself because he misses his and daughter. He also reported that he had been drinking Vodka all day and his BAL was 495 on arrival to ED. Seen with Dion case investigator. patient is alert, oriented, engaging. He is clinically sober with clear speech. He does report that he is feeling withdrawal symptoms and has been on CIWA protocol. There is no psychosis and no dilip. Patient states " I am ready to go to detox now". I can't do this anymore". My daughter told me last night that she wanted me to get into detox". He denies current suicidal or homicidal ideation, intent or plan. PFSH Past Medical History Atrial Fibrillation: Yes Blood Disorders: No Anxiety: Yes Depression: Yes Heart Rhythm Problems: No Cancer: No Cardiovascular Problems: No High Cholesterol: No Chest Pain: No Congestive Heart Failure: No Cerebrovascular Accident: No Diabetes: No Dialysis: No Diminished Hearing: No Endocrine: No Gastrointestinal Disorders: Yes (Colitis) GERD: No Genitourinary: No Hepatitis: Yes (HEP C) Hiatal Hernia: No Heparin Induced Thrombocytopen: No Hypertension: Yes Immune Disorder: No Implanted Vascular Access Dvce: No Kidney Stones: No Medical other: Yes (ALCOHOL ABUSE) Musculoskeletal: No Neurologic: No Psychiatric: No Reproductive: No Respiratory: No Immunizations Current: Yes Migraines: No Renal Failure: No Seizures: Yes (RELATED TO ALCOHOL WITHDRAW) Sickle Cell Disease: No Ulcer: No Tetanus Vaccination: Unknown Past Surgical History Surgical History: No Previous Surgery Abdominal Surgery: No AICD: No Arteriovenous Shunt: No Cardiac Surgery: No Ear Surgery: No Endocrine Surgery: No Eye Surgery: No Genitourinary Surgery: No Gynecologic Surgery: Yes Insulin Pump: No Joint Replacement: No Neurologic Surgery: No Oral Surgery: Yes Pacemaker: No Thoracic Surgery: No Psychiatric History Psychiatric History Hx Psychiatric Treatment: PATIENT WAS LAST ADMITTED TO [facility] FROM 11/25/15 TO 11/29/15 FOR DEPRESSION associated with alcohol abuse. History of Inpatient Treatment: Yes Guns or firearms in home: No Social History but male. Currently homeless. Hx Alcohol Use: Yes Hx Tobacco Use: No Hx Substance Use: No Substance Use Type: Alcohol Other Substances Used: last alcohol 0200 and last heroin 3 days ago Hx of Substance Use Treatment: Yes Allergies-Medications (Allergen,Severity, Reaction): Coded Allergies: Penicillins (Verified Allergy, Unknown, 01/14/17) Reported Meds & Prescriptions Reported Meds & Active Scripts Active Review of Systems Gastrointestinal: COMPLAINS OF: Abdominal pain, Nausea Exam Alert: Yes [place]: Person (ox4) Mood: Calm Affect: Appropriate Speech: Clear, Logical Eye Contact: Normal Memory Intact: Comment (Not impaired.Not impaired) Hallucinations: Other (Negative) Delusions: No Suicidal: Ideation (Deneis any) Homicidal: Ideation (Deneis any) Insight/Judgement Fair. Not impaired. MDM Medical Decision Making Medical Record Reviewed: Yes Assessment/Plan 61 year old male with history of alcohol dependence and substance induced mood disorder who presents intoxicated and under a BA. This morning he is clinically sober and is wanting to go to detox. Denies suicidal ideation, intent or plan. Lift Gutierres Act. Case discussed with Dr. Hinds. Psychiatrically clear for discharge from ED. He is provided with a taxi cab voucher directly to [facility] detox. Orders Orders Basic Metabolic Panel (Bmp) (01/14/17 17:11) Alcohol (Ethanol) (01/14/17 17:11) Psych Screen (01/14/17 17:11) Diet Regular Basic (01/15/17 Breakfast) Alcohol Withdrawal Asmt-Ciwa ONCE (01/15/17 09:35) Flumazenil Inj (Romazicon Inj) (01/15/17 09:45) Lorazepam (Ativan) (01/15/17 09:45) Lorazepam Inj (Ativan Inj) (01/15/17 09:45) Lorazepam (Ativan) (01/15/17 09:45) Lorazepam Inj (Ativan Inj) (01/15/17 09:45) Lorazepam Inj (Ativan Inj) (01/15/17 09:45) Lorazepam Inj (Ativan Inj) (01/15/17 09:45) Results Vital Signs Date Time Temp Pulse Resp B/P (MAP) Pulse Ox O2 Delivery O2 Flow Rate FiO2 01/15/17 09:46 71 18 143/73 (96) 97 Room Air 01/15/17 04:48 81 18 141/72 (95) 96 Room Air 01/14/17 18:59 98.2 87 17 156/67 (96) 98 Room Air 01/14/17 17:48 17 01/14/17 17:11 97.4 79 17 156/87 (110) 99 Laboratory Tests Test 01/14/17 17:30 Blood Urea Nitrogen 4 Creatinine 0.97 Random Glucose 162 Calcium Level 7.8 Sodium Level 146 Potassium Level 3.4 Chloride Level 113 Carbon Dioxide Level 22.8 Anion Gap 10 Estimat Glomerular Filtration Rate 79 Ethyl Alcohol Level 495 Diagnosis Primary Impression: Alcohol dependence with acute alcoholic intoxication Additional Impression: Substance induced mood disorder Psychiatrically Cleared: Yes Disposition: 01 DISCHARGE HOME Condition: Stable Problem Qualifiers Primary Impression: Alcohol dependence with acute alcoholic intoxication Qualified Codes: F10.220 - Alcohol dependence with intoxication, uncomplicated Kasey Taylor Jan 15, 2017 10:15
== END 2017-01-15 13:20 | disposition home or self-care (01) ==
LOC: NEPE 16:49
DX: F19.94 Other psychoactive substance use, unspecified with psychoactive substance-induced mood disorder (principal); F10.220 Alcohol dependence with intoxication, uncomplicated; Y90.8 Blood alcohol level of 240 mg/100 ml or more; I10 Essential (primary) hypertension; I48.91 Unspecified atrial fibrillation
CPT/HCPCS: 80048; 80307; 96374; 99284; J2060

== ENCOUNTER 2017-01-23 16:23 | Emergency (ER) | payer SELFPAY ==
[~2017-01-23] VITALS: Ht 182.9 cm; Wt 72.5 kg
[2017-01-23 16:27] VITALS: BP 134/75; PULSE 85; RESP 16; TEMP 98.4; O2SAT 98
[2017-01-23] MEDS ORDERED: LORazepam 2 MG/ML VIAL IM ONE (18:00)
[2017-01-23] MEDS ORDERED: CHLO25CA9 PO (18:00)
--- NOTE | 2017-01-23 18:01 | PD ---
HPI Chief Complaint: Alcohol/Drug Intoxication Time Seen by Provider: 18:00 Travel History International Travel<30 days: No Contact w/Intl Traveler<30days: No Traveled to known affect area: No History of Present Illness HPI This is a 61-year-old male who is well-known to this emergency department for various complaints related to alcoholism. He presents today for evaluation of withdrawal symptoms. He reports that he was released today after a weeklong stay at the Detoxification center [facility]. He reports that he feels that he was released to early, he has been having withdrawal symptoms, tremors today. He reports that he had some alcohol today in order to help with his withdrawal symptoms. He denies any suicidal or homicidal ideation. He denies any drug use. He has no other complaints at this time. PFS Past Medical History Atrial Fibrillation: Yes Blood Disorders: No Anxiety: Yes Depression: Yes Heart Rhythm Problems: No Cancer: No Cardiovascular Problems: No High Cholesterol: No Chest Pain: No Congestive Heart Failure: No Cerebrovascular Accident: No Diabetes: No Dialysis: No Diminished Hearing: No Endocrine: No Gastrointestinal Disorders: Yes (Colitis) GERD: No Genitourinary: No Hepatitis: Yes (HEP C) Hiatal Hernia: No Heparin Induced Thrombocytopen: No Hypertension: Yes Immune Disorder: No Implanted Vascular Access Dvce: No Kidney Stones: No Musculoskeletal: No Neurologic: No Psychiatric: No Reproductive: No Respiratory: No Immunizations Current: Yes Migraines: No Renal Failure: No Seizures: Yes (RELATED TO ALCOHOL WITHDRAW) Sickle Cell Disease: No Ulcer: No Past Surgical History Abdominal Surgery: No AICD: No Arteriovenous Shunt: No Cardiac Surgery: No Ear Surgery: No Endocrine Surgery: No Eye Surgery: No Genitourinary Surgery: No Gynecologic Surgery: Yes Insulin Pump: No Joint Replacement: No Neurologic Surgery: No Oral Surgery: Yes Pacemaker: No Thoracic Surgery: No Social History Alcohol Use: Yes Tobacco Use: No Substance Use: No Allergies-Medications (Allergen,Severity, Reaction): Coded Allergies: Penicillins (Verified Allergy, Unknown, 01/23/17) Reported Meds & Prescriptions Reported Meds & Active Scripts Active Chlordiazepoxide HCl 25 Mg Capsule 1 Tab PO QID Review of Systems Except as stated in HPI: all other systems reviewed are Neg Physical Exam Narrative GENERAL: This is a somewhat disheveled-appearing male who is in no acute distress. He is speaking fluently, alert and interactive. Responding to commands appropriately. Vital signs reviewed and found to be reassuring. SKIN: Warm and dry. HEAD: Atraumatic. Normocephalic. EYES: Pupils equal and round. No scleral icterus. No injection or drainage. ENT: No nasal bleeding or discharge. Mucous membranes pink and moist. NECK: Trachea midline. No JVD. CARDIOVASCULAR: Regular rate and rhythm. No murmur appreciated. RESPIRATORY: No accessory muscle use. Clear to auscultation. Breath sounds equal bilaterally. GASTROINTESTINAL: Abdomen soft, non-tender, nondistended. Hepatic and splenic margins not palpable. MUSCULOSKELETAL: No obvious deformities. No edema. NEUROLOGICAL: Awake and alert. No obvious cranial nerve deficits. Motor grossly within normal limits. Normal speech. Normal steady gait. Normal finger to nose, rapid alternating movements. He has a mild tremor. PSYCHIATRIC: Appropriate mood and affect; insight and judgment normal. Data Data Last Documented VS Vital Signs Date Time Temp Pulse Resp B/P (MAP) Pulse Ox O2 Delivery O2 Flow Rate FiO2 01/23/17 16:27 98.4 85 16 134/75 (94) 98 Orders Orders Lorazepam Inj (Ativan Inj) (01/23/17 18:00) [facility] Medical Decision Making Medical Screen Exam Complete: Yes Emergency Medical Condition: Yes Medical Record Reviewed: Yes Differential Diagnosis Alcoholism, alcohol withdrawal, dehydration, electrolyte disturbance Narrative Course 61-year-old male reports that he was released today after undergoing alcohol detoxification for one week. He's been having tremors and generalized unease and feels that he is still having withdrawal symptoms despite finishing the benzodiazepine taper at [facility]. On examination he is not currently intoxicated, has a mild tremor. He does report a very strong desire to quit alcohol completely and plans on following up with Alcoholics Anonymous to help in this endeavor. The patient will be given a singular dose of Ativan here and he will be discharged with a very short course of Librium to use for breakthrough withdrawal symptoms. He is stable for discharge. Diagnosis Primary Impression: Alcoholism Additional Instructions: Follow-up with primary care physician, Alcoholics Anonymous, as well as Damon Mancera. Return for any emergent medical conditions. Med/Other Pt SpecificInfo: Prescription(s) given Scripts Chlordiazepoxide HCl (Chlordiazepoxide HCl) 25 Mg Capsule 1 TAB PO QID, #15 Prov: Kaleb Damon MD 01/23/17 Disposition: 01 DISCHARGE HOME Condition: Stable Jed Pires Jan 23, 2017 18:01
== END 2017-01-23 18:36 | disposition home or self-care (01) ==
LOC: NEPD 16:23
DX: F10.20 Alcohol dependence, uncomplicated (principal); R25.1 Tremor, unspecified; I48.91 Unspecified atrial fibrillation; F41.9 Anxiety disorder, unspecified; F32.9 Major depressive disorder, single episode, unspecified; I10 Essential (primary) hypertension; Z86.19 Personal history of other infectious and parasitic diseases; Z88.0 Allergy status to penicillin
CPT/HCPCS: 96372; 99284; J2060

== ENCOUNTER 2017-01-23 21:57 | Emergency (ER) | payer SELFPAY ==
[~2017-01-23 21:57] MED LIST changes: +CHLO25CA9 PO; -LORA-474 PO
[2017-01-23 22:07] VITALS: BP 97/57; PULSE 78; RESP 18; TEMP 98.2; O2SAT 97
--- NOTE | 2017-01-23 22:12 | PD ---
HPI Chief Complaint: tremors Time Seen by Provider: 22:09 Travel History International Travel<30 days: No Contact w/Intl Traveler<30days: No History of Present Illness HPI Patient is a 61-year-old male well-known to this department and seen by my PA earlier today presents emergency Department with similar complaints of tremors. Patient states he was released from [facility] act today and he still had tremors and so he went to drink approximately 1:00 in the afternoon. He states he drank just enough to keep the tremors down and then came over here. He was seen by my PA and I witnessed the patient walking in the [place]. We have written him a prescription of Librium which he states he cannot afford. He states that he did not try to fill it. States she's living outdoors currently and he wanted to see if we would take him back to [facility]. Patient only complaint is of a mild tremor in his hands. He denies any other alcohol intake since 1:00 in the afternoon. Denies any chest pain short of breath abdominal pain nausea vomiting diarrhea fevers. PFSH Past Medical History Atrial Fibrillation: Yes Blood Disorders: No Anxiety: Yes Depression: Yes Heart Rhythm Problems: No Cancer: No Cardiovascular Problems: No High Cholesterol: No Chest Pain: No Congestive Heart Failure: No Cerebrovascular Accident: No Diabetes: No Dialysis: No Diminished Hearing: No Endocrine: No Gastrointestinal Disorders: Yes (Colitis) GERD: No Genitourinary: No Hepatitis: Yes (HEP C) Hiatal Hernia: No Heparin Induced Thrombocytopen: No Hypertension: Yes Immune Disorder: No Implanted Vascular Access Dvce: No Kidney Stones: No Musculoskeletal: No Neurologic: No Psychiatric: No Reproductive: No Respiratory: No Immunizations Current: Yes Migraines: No Renal Failure: No Seizures: Yes (RELATED TO ALCOHOL WITHDRAW) Sickle Cell Disease: No Ulcer: No Past Surgical History Abdominal Surgery: No AICD: No Arteriovenous Shunt: No Cardiac Surgery: No Ear Surgery: No Endocrine Surgery: No Eye Surgery: No Genitourinary Surgery: No Gynecologic Surgery: Yes Insulin Pump: No Joint Replacement: No Neurologic Surgery: No Oral Surgery: Yes Pacemaker: No Thoracic Surgery: No Social History Alcohol Use: Yes Tobacco Use: No Substance Use: No Allergies-Medications (Allergen,Severity, Reaction): Coded Allergies: Penicillins (Verified Allergy, Unknown, 9/5/17) pt states he has had it before but not sure why its on his record and family members are allergic to penicillin Reported Meds & Prescriptions Reported Meds & Active Scripts Active Chlordiazepoxide HCl 25 Mg Capsule 1 Tab PO QID Review of Systems Except as stated in HPI: all other systems reviewed are Neg Physical Exam Narrative GENERAL: Well-developed well-nourished no obvious distress. SKIN: Focused skin assessment warm/dry. HEAD: Atraumatic. Normocephalic. EYES: Pupils equal and round. No scleral icterus. No injection or drainage. ENT: No nasal bleeding or discharge. Mucous membranes pink and moist. NECK: Trachea midline. No JVD. CARDIOVASCULAR: Regular rate and rhythm. No murmur appreciated. RESPIRATORY: No accessory muscle use. Clear to auscultation. Breath sounds equal bilaterally. GASTROINTESTINAL: Abdomen soft, non-tender, nondistended. Hepatic and splenic margins not palpable. MUSCULOSKELETAL: No obvious deformities. No clubbing. No cyanosis. No edema. NEUROLOGICAL: Awake and alert and oriented 4, cranial nerves II through XII grossly intact and nonfocal, 5 out of 5 strength in all 4 extremity's. I observed no tremor of outstretched fingers. Ambulates even with a narrow based gait. He is clinically sober at this time. No nystagmus. PSYCHIATRIC: Appropriate mood and affect; insight and judgment normal. Data Data Last Documented VS Vital Signs Date Time Temp Pulse Resp B/P (MAP) Pulse Ox O2 Delivery O2 Flow Rate FiO2 01/23/17 22:21 18 01/23/17 22:07 98.2 78 97/57 (70) 97 MDM Medical Decision Making Medical Screen Exam Complete: Yes Emergency Medical Condition: Yes Differential Diagnosis Alcoholism, alcohol withdrawal unlikely, electrolyte abnormality unlikely, malingering. Narrative Course Patient roomed emergency department. Of note the patient had 24 visits to emergency department in December. This is his second visit to the emergency department today. Has no medical complaints that warrant further workup at this time. I am working with [facility] psych screener's to see if there is a bed available [facility] and if so we will transport him. There are no beds [facility] therefore the patient will be discharged. He is medically stable for discharge this time. Diagnosis Primary Impression: alcohol dependency Disposition: 01 DISCHARGE HOME Condition: Stable Kaleb Damon MD Jan 23, 2017 22:12
== END 2017-01-23 23:10 | disposition home or self-care (01) ==
LOC: NEPD 21:57
DX: F10.20 Alcohol dependence, uncomplicated (principal); I48.91 Unspecified atrial fibrillation; F41.9 Anxiety disorder, unspecified; F32.9 Major depressive disorder, single episode, unspecified; I10 Essential (primary) hypertension; Z86.19 Personal history of other infectious and parasitic diseases; Z88.0 Allergy status to penicillin; Z79.899 Other long term (current) drug therapy
CPT/HCPCS: 99283

== ENCOUNTER 2017-01-24 10:27 | Emergency (ER) | payer OTHER ==
[2017-01-24 10:42] VITALS: BP 125/68; PULSE 68; RESP 18; TEMP 97.8; O2SAT 97
--- NOTE | 2017-01-24 10:50 | PD ---
HPI Chief Complaint: Alcohol/Drug Intoxication Time Seen by Provider: 10:36 Travel History International Travel<30 days: No Contact w/Intl Traveler<30days: No Traveled to known affect area: No History of Present Illness HPI 61-year-old man, homeless alcoholic well known to the emergency department, here twice yesterday, presents back brought in under the [employer] act from the land for reportedly threatening to kill himself. [employer] act states the patient was holding a gun. Patient does not have possession of a gun. He states he [place] with his brother. Patient states he would like to go to [employer] [facility] helped to quit drinking. So that he can get help to quit drinking. Last drink this morning. No recent illness or injury. No other complaints. History Past Medical History Narrative Medical Alcoholism Homelessness Social History Alcohol Use: Yes (DAILY) Tobacco Use: No Allergies-Medications (Allergen,Severity, Reaction): Coded Allergies: Penicillins (Verified Allergy, Unknown, 01/23/17) pt states he has had it before but not sure why its on his record and family members are allergic to penicillin Reported Meds & Prescriptions Reported Meds & Active Scripts Active Chlordiazepoxide HCl 25 Mg Capsule 1 Tab PO QID Review of Systems Except as stated in HPI: all other systems reviewed are Neg Physical Exam Narrative GENERAL: 61-year-old man, no acute distress. SKIN: Focused skin assessment warm/dry. NECK: Trachea midline. No JVD. CARDIOVASCULAR: Regular rate and rhythm. No murmur appreciated. RESPIRATORY: No accessory muscle use. Clear to auscultation. Breath sounds equal bilaterally. GASTROINTESTINAL: Abdomen soft, non-tender, nondistended. Hepatic and splenic margins not palpable. MUSCULOSKELETAL: No obvious deformities. No clubbing. No cyanosis. No edema. NEUROLOGICAL: Awake and alert. No obvious cranial nerve deficits. Motor grossly within normal limits. Normal speech. PSYCHIATRIC: Insight and judgment are fair. Data Data Last Documented VS Vital Signs Date Time Temp Pulse Resp B/P (MAP) Pulse Ox O2 Delivery O2 Flow Rate FiO2 01/24/17 10:42 97.8 68 18 125/68 (87) 97 MDM Medical Decision Making Medical Screen Exam Complete: Yes Emergency Medical Condition: Yes Differential Diagnosis Intoxication, depression, alcoholism, other Narrative Course Medical decision-making 61-year-old man presents emergency department again intoxicated, brought in by police under Gut[employer] act for threatening suicide. He is not suicidal now. He states that he wants to go to [facility] help with his drinking. He is very similar with all the resources are available in the area. He will need a little bit a time to sober up in the ED and will be discharged. I lifted his Gutierres acted as in my experience and judgment, patient is not an eminent threat to himself or others. Diagnosis Primary Impression: Alcohol dependence with acute alcoholic intoxication [facility] Additional Instructions: Follow-up with [facility] for alcoholism treatment. Return to the emergency department for any new or worsening symptoms. Med/Other Pt SpecificInfo: No Change to Meds Disposition: 01 DISCHARGE HOME Condition: Stable Darinel Ricks MD Jan 24, 2017 10:50
== END 2017-01-24 13:25 | disposition home or self-care (01) ==
LOC: NEPC 10:27
DX: F10.229 Alcohol dependence with intoxication, unspecified (principal); Z79.899 Other long term (current) drug therapy; Z88.0 Allergy status to penicillin; Z59.0 Homelessness
CPT/HCPCS: 99281

== ENCOUNTER 2017-01-26 07:25 | Emergency (ER) | payer OTHER ==
[~2017-01-26] VITALS: Ht 182.9 cm; Wt 75.0 kg
[2017-01-26 07:35] VITALS: BP 154/86; PULSE 95; RESP 19; TEMP 98; O2SAT 96
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
[2017-01-26 07:58] LABS: AUTOMATED NEUTROPHIL # 2.9 TH/MM3 (1.8-7.7); BASOPHIL # 0.2 TH/MM3 (0-0.2); BASOPHIL % 2.6 % (0.0-2.0); EOSINOPHIL # 0.1 TH/MM3 (0-0.4); EOSINOPHIL % 1.1 % (0.0-4.0); HEMATOCRIT 40.2 % (39.0-51.0); HEMO FLAGS DIFF FINAL; LYMPH % 30.2 % (9.0-44.0); LYMPHOCYTE # 1.8 TH/MM3 (1.0-4.8); MEAN CELL VOLUME 99.3 FL (80.0-100.0); MEAN CORPUSCULAR HEMOGLOBIN 33.9 PG (27.0-34.0); MEAN CORPUSCULAR HGB CONC 34.2 % (32.0-36.0); MONO % 16.6 % (0.0-8.0); NEUT % 49.5 % (16.0-70.0); PLATELET COUNT 211 TH/MM3 (150-450); RED BLOOD COUNT 4.05 MIL/MM3 (4.50-5.90); RED CELL DISTRIBUTION WIDTH 14.2 % (11.6-17.2); WHITE BLOOD COUNT 5.9 TH/MM3 (4.0-11.0)
[2017-01-26] MEDS ORDERED: LORazepam 2 MG/ML VIAL IV PUSH PRN ×4 (08:00)
[2017-01-26] MEDS ORDERED: FLUMAZENIL 0.5 MG/5 ML VIAL IV PUSH PRN (08:00)
[2017-01-26] MEDS ORDERED: LORazepam 2 MG TAB PO PRN (08:00)
[2017-01-26] MEDS ORDERED: LORazepam 1 MG TAB PO PRN (08:00)
[2017-01-26 08:16] LABS: ALT (GPT) 116 U/L (12-78); ANION GAP 10 MEQ/L (5-15); AST (GOT) 84 U/L (15-37); BICARBONATE 21.4 MEQ/L (21.0-32.0); BLOOD UREA NITROGEN 10 MG/DL (7-18); CHLORIDE 113 MEQ/L (98-107); GLOMERULAR FILTRATION RATE 100 ML/MIN (>89); POTASSIUM 3.5 MEQ/L (3.5-5.1); SODIUM (NA) 144 MEQ/L (136-145)
[2017-01-26 08:19] LABS: ALKALINE PHOSPHATASE 110 U/L (45-117); TOTAL BILIRUBIN ADULT 0.8 MG/DL (0.2-1.0)
[2017-01-26 08:20] LABS: ALCOHOL 291 MG/DL (0-5)
--- NOTE | 2017-01-26 11:06 | PD ---
History of Present Illness Chief Complaint: Psychiatric Symptoms Time Seen by Provider: 10:45 Travel History International Travel<30 Days: No Contact w/Intl Traveler<30days: No Known affected area: No Legal Status Legal Status: [employer] Act History of Present Illness: 61-year-old male with multiyear history of alcoholism, well known to this physician, presents under a [employer] act for thoughts of suicide and self-harm. Patient is willing to go to [facility] for detox and rehabilitation and therefore does not qualify for Gutierres act on 2 counts. First, Gutierres act is not supposed to be used by law enforcement for individuals with primary alcohol and drug problems. Second, patient is willing to accept help for his alcoholism. This physician recognizes the patient has been seen at this emergency room on multiple occasions while intoxicated and/or making suicidal statements. However , it remains inappropriate and counter therapeutic to admit him here for detox and rehabilitation. Lastly, this facility is not licensed for that type of treatment. Therefore, we are providing transportation for the patient to go to [facility] for further evaluation and treatment. At this time, the patient reports no suicidal or homicidal ideation, plan or intent, psychotic symptoms or cognitive impairments. PFSH Past Medical History Atrial Fibrillation: Yes Blood Disorders: No Anxiety: Yes Depression: Yes Heart Rhythm Problems: No Cancer: No Cardiovascular Problems: No High Cholesterol: No Chest Pain: No Congestive Heart Failure: No Cerebrovascular Accident: No Diabetes: No Dialysis: No Diminished Hearing: No Endocrine: No Gastrointestinal Disorders: Yes (Colitis) GERD: No Genitourinary: No Hepatitis: Yes (HEP C) Hiatal Hernia: No Heparin Induced Thrombocytopen: No Hypertension: Yes Immune Disorder: No Implanted Vascular Access Dvce: No Kidney Stones: No Musculoskeletal: No Neurologic: No Psychiatric: No Reproductive: No Respiratory: No Immunizations Current: Yes Migraines: No Renal Failure: No Seizures: Yes Sickle Cell Disease: No Ulcer: No Tetanus Vaccination: < 5 Years Influenza Vaccination: Yes Past Surgical History Abdominal Surgery: No AICD: No Arteriovenous Shunt: No Cardiac Surgery: No Ear Surgery: No Endocrine Surgery: No Eye Surgery: No Genitourinary Surgery: No Gynecologic Surgery: Yes Insulin Pump: No Joint Replacement: No Neurologic Surgery: No Oral Surgery: Yes Pacemaker: No Thoracic Surgery: No Psychiatric History Psychiatric History Hx Psychiatric Treatment: PATIENT WAS LAST ADMITTED TO [facility] FROM 11/25/15 TO 11/29/15 FOR DEPRESSION associated with alcohol abuse. History of Inpatient Treatment: Yes Guns or firearms in home: No Social History Hx Alcohol Use: Yes (DAILY) Hx Tobacco Use: No Hx Substance Use: Yes (HX OF IVDA) Substance Use Type: Alcohol Other Substances Used: last alcohol 0200 and last heroin 3 days ago Hx of Substance Use Treatment: Yes Allergies-Medications (Allergen,Severity, Reaction): Coded Allergies: Penicillins (Verified Allergy, Unknown, 01/26/17) pt states he has had it before but not sure why its on his record and family members are allergic to penicillin Reported Meds & Prescriptions Reported Meds & Active Scripts Active No Active Prescriptions or Reported Medications Review of Systems Except as stated in HPI: all other systems reviewed are Neg Exam Alert: Yes [place]: Person, Place, Date, Situation Mood: Anxious Affect: Appropriate Speech: Clear, Logical Eye Contact: Normal Memory Intact: Immediate, Recent, Remote Delusions: No Insight/Judgement Adequate MDM Medical Decision Making Medical Record Reviewed: Yes Assessment/Plan Patient seen at bedside, medical record reviewed and case discussed with Dion and the patient's nurse. Patient remains at risk for self-harm chronically, due to his alcoholism. This risk cannot be avoided and cannot be predicted. However, the patient is competent to make decisions on his own half and again is willing to accept treatment at [facility]. Orders Orders Complete Blood Count With Diff (01/26/17 07:29) Comprehensive Metabolic Panel (01/26/17 07:29) Psych Screen (01/26/17 07:29) Drug Screen, Random Urine (01/26/17 07:29) Alcohol (Ethanol) (01/26/17 07:29) Alcohol Withdrawal Asmt-Ciwa ONCE (01/26/17 07:51) Flumazenil Inj (Romazicon Inj) (01/26/17 08:00) Lorazepam (Ativan) (01/26/17 08:00) Lorazepam Inj (Ativan Inj) (01/26/17 08:00) Lorazepam (Ativan) (01/26/17 08:00) Lorazepam Inj (Ativan Inj) (01/26/17 08:00) Lorazepam Inj (Ativan Inj) (01/26/17 08:00) Lorazepam Inj (Ativan Inj) (01/26/17 08:00) Diet Regular Basic (01/26/17 Breakfast) Results Vital Signs Date Time Temp Pulse Resp B/P (MAP) Pulse Ox O2 Delivery O2 Flow Rate FiO2 01/26/17 07:35 98.0 95 19 154/86 (108) 96 Laboratory Tests Test 01/26/17 07:45 01/26/17 07:55 White Blood Count 5.9 Red Blood Count 4.05 Hemoglobin 13.7 Hematocrit 40.2 Mean Corpuscular Volume 99.3 Mean Corpuscular Hemoglobin 33.9 Mean Corpuscular Hemoglobin Concent 34.2 Red Cell Distribution Width 14.2 Platelet Count 211 Mean Platelet Volume 6.2 Neutrophils (%) (Auto) 49.5 Lymphocytes (%) (Auto) 30.2 Monocytes (%) (Auto) 16.6 Eosinophils (%) (Auto) 1.1 Basophils (%) (Auto) 2.6 Neutrophils # (Auto) 2.9 Lymphocytes # (Auto) 1.8 Monocytes # (Auto) 1.0 Eosinophils # (Auto) 0.1 Basophils # (Auto) 0.2 CBC Comment DIFF FINAL Differential Comment Blood Urea Nitrogen 10 Creatinine 0.79 Random Glucose 122 Total Protein 7.8 Albumin 3.6 Calcium Level 7.8 Alkaline Phosphatase 110 Aspartate Amino Transf (AST/SGOT) 84 Alanine Aminotransferase (ALT/SGPT) 116 Total Bilirubin 0.8 Sodium Level 144 Potassium Level 3.5 Chloride Level 113 Carbon Dioxide Level 21.4 Anion Gap 10 Estimat Glomerular Filtration Rate 100 Ethyl Alcohol Level 291 Urine Opiates Screen NEG Urine Barbiturates Screen NEG Urine Amphetamines Screen NEG Urine Benzodiazepines Screen POS Urine Cocaine Screen NEG Urine Cannabinoids Screen NEG Diagnosis Primary Impression: Alcohol abuse Prescriptions No Active Prescriptions or Reported Meds Davie Oconnell MD Jan 26, 2017 11:06
== END 2017-01-26 11:45 | disposition home or self-care (01) ==
LOC: NEPC 07:25 → NEPD 11:45
DX: F10.229 Alcohol dependence with intoxication, unspecified (principal); Y90.8 Blood alcohol level of 240 mg/100 ml or more
CPT/HCPCS: 80053; 80307; 85025; 99283

== ENCOUNTER 2017-01-27 17:51 | Emergency (ER) | payer OTHER ==
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
[2017-01-27 19:00] VITALS: BP 99/60; PULSE 62; RESP 16; TEMP 97.6; O2SAT 98
[2017-01-27 20:43] VITALS: BP 101/59; PULSE 53; RESP 18
[2017-01-27] MEDS ORDERED: LORazepam 1 MG TAB PO PRN (23:30)
[2017-01-27] MEDS ORDERED: LORazepam 2 MG TAB PO PRN (23:30)
[2017-01-27] MEDS ORDERED: LORazepam 2 MG/ML VIAL IV PUSH PRN ×4 (23:30)
[2017-01-27] MEDS ORDERED: FLUMAZENIL 0.5 MG/5 ML VIAL IV PUSH PRN (23:30)
[2017-01-28 02:55] VITALS: BP 93/52; PULSE 61; RESP 18; O2SAT 98
[2017-01-28 10:19] VITALS: BP 139/78; PULSE 62; RESP 18
[2017-01-28 11:20] VITALS: BP 138/76; PULSE 54; RESP 18; TEMP 99.3; O2SAT 98
[2017-01-28] MEDS ORDERED: CHLO25CA9 PO (11:31)
--- NOTE | 2017-01-28 11:33 | PD ---
Physical Exam Time Seen by Provider: 11:[address] Sultana has evaluated patient, lifted the Gutierres act, and patient will be discharged home. Data Data Last Documented VS Vital Signs Date Time Temp Pulse Resp B/P (MAP) Pulse Ox O2 Delivery O2 Flow Rate FiO2 01/28/17 11:20 99.3 54 18 138/76 (96) 98 Orders Orders Psych Screen (01/27/17 18:03) Alcohol (Ethanol) (01/27/17 20:24) Alcohol Withdrawal Asmt-Ciwa ONCE (01/27/17 23:25) Flumazenil Inj (Romazicon Inj) (01/27/17 23:30) Lorazepam (Ativan) (01/27/17 23:30) Lorazepam Inj (Ativan Inj) (01/27/17 23:30) Lorazepam (Ativan) (01/27/17 23:30) Lorazepam Inj (Ativan Inj) (01/27/17 23:30) Lorazepam Inj (Ativan Inj) (01/27/17 23:30) Lorazepam Inj (Ativan Inj) (01/27/17 23:30) Diet Regular Basic (01/28/17 Breakfast) Diet Regular Basic (01/28/17 Lunch) Diet Regular Basic (01/28/17 Dinner) Labs Laboratory Tests Test 01/27/17 20:40 Ethyl Alcohol Level 211 MG/DL [facility] Supervised Visit with DIANNE: No Narrative Course Dr. Sultana has evaluated patient, lifted the Gutierres act, and patient will be discharged home. Patient contracts for safety. Denies homicidal or suicidal ideations. Concern of alcohol withdrawal was brought to my attention. The patient was administered 2 mg of Ativan this morning. Patient's physical exam is unremarkable other than very mild hand tremors. He denies vomiting. His vital signs are stable. Patient provided a three-day supply of Librium. Patient was given a list of shelters in the community. He is medically cleared for discharge. Diagnosis Primary Impression: Suicidal ideation Additional Impressions: alcohol dependency Alcohol withdrawal Qualified Codes: F10.230 - Alcohol dependence with withdrawal, uncomplicated Referrals: Primary Care Physician Psychiatrist [facility] Patient Instructions: Abuse of Alcohol (ED), Alcohol Dependence (ED), Alcohol Intoxication (ED), Alcohol Withdrawal (ED), General Instructions Additional Instruction: Contract safety to your self and others Stop drinking alcohol Take Librium as needed for alcohol withdrawal Follow-up with psychiatry Follow-up with primary care provider Follow-up with [facility] Return to the emergency department immediately with worsening of symptoms Med/Other Pt SpecificInfo: Prescription(s) given Scripts Chlordiazepoxide HCl (Chlordiazepoxide HCl) 25 Mg Capsule 25 MG PO TID Y for WITHDRAWAL for 3 Days Prov: Vangie Campoverde 01/28/17 Disposition: 01 DISCHARGE HOME Condition: Stable Vangie Campoverde Jan 28, 2017 11:33
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
[2017-01-28 14:14] VITALS: BP 136/76; TEMP 99.8
== END 2017-01-28 14:18 | disposition home or self-care (01) ==
LOC: NEDAMB 17:51 → NEPJ 01-28 14:18
DX: F10.230 Alcohol dependence with withdrawal, uncomplicated (principal); I48.91 Unspecified atrial fibrillation; I10 Essential (primary) hypertension
CPT/HCPCS: 80307; 99284

== ENCOUNTER 2017-01-28 16:45 | Emergency (ER) | payer SELFPAY | END 2017-01-28 16:52 | disposition left against medical advice (07) | LOC: NED 16:45 | DX: F99 Mental disorder, not otherwise specified (principal) | CPT/HCPCS: 99281 ==

== ENCOUNTER 2017-01-30 16:42 | Emergency (ER) | payer OTHER ==
[~2017-01-30] VITALS: Ht 182.9 cm; Wt 80.0 kg
--- NOTE | 2017-01-30 17:26 | PD ---
HPI Chief Complaint: Psychiatric Symptoms Time Seen by Provider: 17:25 Travel History International Travel<30 days: No Contact w/Intl Traveler<30days: No Traveled to known affect area: No PFSH Past Medical History Atrial Fibrillation: Yes Blood Disorders: No Anxiety: Yes Depression: Yes Heart Rhythm Problems: No Cancer: No Cardiovascular Problems: No High Cholesterol: No Chest Pain: No Congestive Heart Failure: No Cerebrovascular Accident: No Diabetes: No Dialysis: No Diminished Hearing: No Endocrine: No Gastrointestinal Disorders: Yes (Colitis) GERD: No Genitourinary: No Hepatitis: Yes (HEP C) Hiatal Hernia: No Heparin Induced Thrombocytopen: No Hypertension: Yes Immune Disorder: No Implanted Vascular Access Dvce: No Kidney Stones: No Musculoskeletal: No Neurologic: No Psychiatric: No Reproductive: No Respiratory: No Immunizations Current: Yes Migraines: No Renal Failure: No Seizures: Yes Sickle Cell Disease: No Ulcer: No Past Surgical History Abdominal Surgery: No AICD: No Arteriovenous Shunt: No Cardiac Surgery: No Ear Surgery: No Endocrine Surgery: No Eye Surgery: No Genitourinary Surgery: No Gynecologic Surgery: Yes Insulin Pump: No Joint Replacement: No Neurologic Surgery: No Oral Surgery: Yes Pacemaker: No Thoracic Surgery: No Social History Alcohol Use: Yes (DAILY) Tobacco Use: No Substance Use: Yes Allergies-Medications (Allergen,Severity, Reaction): Coded Allergies: Penicillins (Verified Allergy, Unknown, 01/30/17) pt states he has had it before but not sure why its on his record and family members are allergic to penicillin Reported Meds & Prescriptions Reported Meds & Active Scripts Active Chlordiazepoxide HCl 25 Mg Capsule 25 Mg PO TID PRN 3 Days Data Data Last Documented VS Vital Signs Date Time Temp Pulse Resp B/P (MAP) Pulse Ox O2 Delivery O2 Flow Rate FiO2 01/30/17 17:45 97.8 78 18 96/58 (71) 95 Nanda Downing Jan 30, 2017 17:26
--- NOTE | 2017-01-30 17:30 | PD ---
HPI Chief Complaint: Psychiatric Symptoms Time Seen by Provider: 17:25 Travel History International Travel<30 days: No Contact w/Intl Traveler<30days: No Traveled to known affect area: No History of Present Illness HPI Mr. Staley well-known to me. He is intoxicated. Review of his records shows he was discharged from [facility] this morning with a bus pass an appointment on 02/01. Reportedly told the environmental services coordinator he wanted to kill himself. He has no complaints. History Past Medical History Narrative Medical Intoxication Social History Alcohol Use: Yes (DAILY) Tobacco Use: No Allergies-Medications (Allergen,Severity, Reaction): Coded Allergies: Penicillins (Verified Allergy, Unknown, 01/27/17) pt states he has had it before but not sure why its on his record and family members are allergic to penicillin Reported Meds & Prescriptions Reported Meds & Active Scripts Active Chlordiazepoxide HCl 25 Mg Capsule 25 Mg PO TID PRN 3 Days Review of Systems Except as stated in HPI: all other systems reviewed are Neg Physical Exam Narrative GENERAL: 61-year-old man, slightly intoxicated, slurred speech, distress. SKIN: Focused skin assessment warm/dry. HEAD: Atraumatic. Normocephalic. EYES: Pupils equal and round. No scleral icterus. No injection or drainage. ENT: No nasal bleeding or discharge. Mucous membranes pink and moist. NECK: Trachea midline. No JVD. CARDIOVASCULAR: Regular rate and rhythm. No murmur appreciated. RESPIRATORY: No accessory muscle use. Clear to auscultation. Breath sounds equal bilaterally. GASTROINTESTINAL: Abdomen soft, non-tender, nondistended. Hepatic and splenic margins not palpable. MUSCULOSKELETAL: No obvious deformities. No edema. NEUROLOGICAL: Awake and alert. No obvious cranial nerve deficits. Motor grossly within normal limits. Normal speech. PSYCHIATRIC: Appropriate mood and affect; insight and judgment normal. [facility] Medical Decision Making Medical Screen Exam Complete: Yes Emergency Medical Condition: Yes Differential Diagnosis Intoxication Narrative Course Stop drinking. Follow-up with [facility]. Diagnosis Primary Impression: Alcohol intoxication Patient Instructions: General Instructions Additional Instructions: Follow-up with [facility] as needed. Med/Other Pt SpecificInfo: No Change to Meds Disposition: 01 DISCHARGE HOME Condition: Stable Darinel Ricks MD Jan 30, 2017 17:30
[2017-01-30 17:45] VITALS: BP 96/58; PULSE 78; RESP 18; TEMP 97.8; O2SAT 95
== END 2017-01-30 18:05 | disposition home or self-care (01) ==
LOC: NEDAMB 16:42
DX: F10.920 Alcohol use, unspecified with intoxication, uncomplicated (principal)
CPT/HCPCS: 99281

== ENCOUNTER 2017-01-31 12:37 | Emergency (ER) | payer OTHER ==
--- NOTE | 2017-01-31 13:05 | PD ---
HPI Chief Complaint: Medical Clearance Time Seen by Provider: 13:02 Travel History International Travel<30 days: No Contact w/Intl Traveler<30days: No Traveled to known affect area: No History of Present Illness HPI Mr. Lowry is a 61-year-old man well-known to myself and the emergency department. He usually presents intoxicated threatening suicide. He's been seen multiple times by psychiatry. I saw him yesterday. He insulin seen at [facility] and given an outpatient appointment in the past 48 hours or so. He apparently is back with police after recontact them and stated that he wanted to kill himself and could not get help with his alcoholism. He's been given resources multiple times about where to follow-up for help with his alcoholism. No recent illness or injury. History Past Medical History Narrative Medical Alcoholism Social History Alcohol Use: Yes (DAILY) Tobacco Use: No Allergies-Medications (Allergen,Severity, Reaction): Coded Allergies: Penicillins (Verified Allergy, Unknown, 01/30/17) pt states he has had it before but not sure why its on his record and family members are allergic to penicillin Reported Meds & Prescriptions Reported Meds & Active Scripts Active Chlordiazepoxide HCl 25 Mg Capsule 25 Mg PO TID PRN 3 Days Review of Systems Except as stated in HPI: all other systems reviewed are Neg Physical Exam Narrative GENERAL: 61-year-old man, no acute distress. SKIN: Focused skin assessment warm/dry. NECK: Trachea midline. No JVD. CARDIOVASCULAR: Regular rate and rhythm. No murmur appreciated. RESPIRATORY: No accessory muscle use. Clear to auscultation. Breath sounds equal bilaterally. GASTROINTESTINAL: Abdomen soft, non-tender, nondistended. Hepatic and splenic margins not palpable. MUSCULOSKELETAL: No obvious deformities. No edema. NEUROLOGICAL: Awake and alert. No obvious cranial nerve deficits. Motor grossly within normal limits. Normal speech. PSYCHIATRIC: Appropriate mood and affect; insight and judgment normal. MDM Medical Decision Making Medical Screen Exam Complete: Yes Emergency Medical Condition: Yes Differential Diagnosis Alcoholism, substance induced mood disorder, malingering, other Narrative Course Medical decision making 61-year-old man brought in by police for threatening suicide. After evaluation of my knowledge of this patient multiple previous encounters, in my experience in judgment I do not believe he is an immediate threat to himself or others. I do not believe the patient would benefit from being held to see a psychiatrist again. He was counseled regarding the resources available for all call treatment. Patient is a little bit agitated. He is not known to likely make suicidal gestures when he is discharged for this as a possibility. More likely will see him again tomorrow or the next day. Diagnosis Primary Impression: alcohol dependency Additional Instructions: Follow-up with outpatient substance abuse treatment resources as discussed. Med/Other Pt SpecificInfo: No Change to Meds Disposition: 01 DISCHARGE HOME Condition: Darinel Kirk MD Jan 31, 2017 13:05
== END 2017-01-31 13:47 | disposition home or self-care (01) ==
LOC: NEDAMB 12:37
DX: F10.20 Alcohol dependence, uncomplicated (principal)
CPT/HCPCS: 99281

== ENCOUNTER 2017-02-09 17:52 | Emergency (ER) | payer OTHER ==
[~2017-02-09] VITALS: Ht 177.8 cm; Wt 86.0 kg
[2017-02-09 18:04] VITALS: BP 119/62; PULSE 93; RESP 16; TEMP 97.8
--- NOTE | 2017-02-09 18:25 | PD ---
HPI Chief Complaint: Psychiatric Symptoms Time Seen by Provider: 17:57 Travel History International Travel<30 days: No Contact w/Intl Traveler<30days: No Traveled to known affect area: No History of Present Illness HPI This is a 61-year-old male who presents to the emergency department with a history of alcoholism saying that he is feeling depressed. He is brought in under a Gutierres act and the police say that the patient said he wanted to take the border police's gun and shoot himself. Patient says he doesn't want to hurt himself and he's been depressed for months and he wishes he could quit alcohol. He acknowledges drinking alcohol today. PFSH Past Medical History Atrial Fibrillation: Yes Blood Disorders: No Anxiety: Yes Depression: Yes Heart Rhythm Problems: No Cancer: No Cardiovascular Problems: No High Cholesterol: No Chest Pain: No Congestive Heart Failure: No Cerebrovascular Accident: No Diabetes: No Dialysis: No Diminished Hearing: No Endocrine: No Gastrointestinal Disorders: Yes (Colitis) GERD: No Genitourinary: No Hepatitis: Yes (HEP C) Hiatal Hernia: No Heparin Induced Thrombocytopen: No Hypertension: Yes Immune Disorder: No Implanted Vascular Access Dvce: No Kidney Stones: No Musculoskeletal: No Neurologic: No Psychiatric: No Reproductive: No Respiratory: No Immunizations Current: Yes Migraines: No Renal Failure: No Seizures: Yes Sickle Cell Disease: No Ulcer: No Past Surgical History Abdominal Surgery: No AICD: No Arteriovenous Shunt: No Cardiac Surgery: No Ear Surgery: No Endocrine Surgery: No Eye Surgery: No Genitourinary Surgery: No Gynecologic Surgery: Yes Insulin Pump: No Joint Replacement: No Neurologic Surgery: No Oral Surgery: Yes Pacemaker: No Thoracic Surgery: No Social History Alcohol Use: Yes (DAILY) Tobacco Use: No Substance Use: Yes Allergies-Medications (Allergen,Severity, Reaction): Coded Allergies: Penicillins (Verified Allergy, Unknown, 01/30/17) pt states he has had it before but not sure why its on his record and family members are allergic to penicillin Reported Meds & Prescriptions Reported Meds & Active Scripts Active Review of Systems ROS Limitations: Intoxication Physical Exam Narrative GENERAL:Well appearing, no acute distress SKIN: Focused skin assessment warm and dry. HEAD: Atraumatic. Normocephalic. EYES: Pupils equal and round. No injection or drainage. ENT: Moist mucous membranes NECK: Trachea midline. CARDIOVASCULAR: Regular rate and rhythm. No murmur appreciated. RESPIRATORY: Clear to auscultation. Breath sounds equal bilaterally. GASTROINTESTINAL: Abdomen soft, non-tender, nondistended. MUSCULOSKELETAL: No obvious deformities. NEUROLOGICAL: Clinically intoxicated with some ataxia and dysarthria. Awake and alert. No obvious cranial nerve deficits. Moving all extremities. PSYCHIATRIC: Appropriate mood and affect; insight and judgment normal. Denies suicidal ideation. Data Data Last Documented VS Vital Signs Date Time Temp Pulse Resp B/P (MAP) Pulse Ox O2 Delivery O2 Flow Rate FiO2 02/09/17 18:04 97.8 93 16 119/62 (81) MDM Medical Decision Making Medical Screen Exam Complete: Yes Emergency Medical Condition: Yes Differential Diagnosis Acute alcohol intoxication, alcohol-induced mood disorder, adjustment reaction, depression Narrative Course This is a 61-year-old male who has a long-standing history of alcoholism who presents to the emergency department reporting depression. He encountered the police who placed him under a Gutierres act. On my assessment the patient has intoxicated but denies suicidal ideation. He says he feels depressed but he is been depressed for months and he really wishes he could stop drinking alcohol. Patient's been seen in our emergency department 9 times this month alone. He often reports depression and often reports suicidal ideation or makes suicidal gestures. Unfortunately he is inherently at risk of impulsivity given his history of chronic alcoholism. However he's been evaluated by psychiatry multiple times in our emergency department and he's been referred to [facility] multiple times and given multiple opportunities to engage in substance detoxification, however he continues to drink alcohol. Based on this I don't think the patient's primary diagnosis his mental illness and I think he suffers from chronic alcoholism. I don't think he meets Gutierres act criteria. I don't think he would benefit from additional psychiatric evaluation as he has been evaluated multiple times in the past and on each occasion we have deemed alcohol as the root of his presentation. He once again will be given resources regarding [facility] and alcohol detoxification which I think would most benefit him. Diagnosis Primary Impression: alcohol dependency Patient Instructions: General Instructions Additional Instructions: If you develop thoughts of hurting yourself or others return to the emergency department. Follow up with [facility] in regards to psychiatric or substance related issues at: [phone] [place] [id number] Med/Other Pt SpecificInfo: No Change to Meds Disposition: 01 DISCHARGE HOME Condition: Stable Diane Mcdonald MD Feb 09, 2017 18:25
[2017-02-09 19:26] VITALS: BP 148/87
== END 2017-02-09 19:31 | disposition home or self-care (01) ==
LOC: NEDAMB 17:52
DX: F10.20 Alcohol dependence, uncomplicated (principal)
CPT/HCPCS: 99281

== ENCOUNTER 2017-02-13 20:28 | Emergency (ER) | payer SELFPAY ==
[~2017-02-13] VITALS: Ht 182.9 cm; Wt 72.5 kg
[2017-02-13 20:37] VITALS: BP 91/61; PULSE 90; RESP 15; TEMP 97.8; O2SAT 97
--- NOTE | 2017-02-13 22:02 | PD ---
HPI Chief Complaint: Alcohol/Drug Intoxication Time Seen by Provider: 22:01 Travel History International Travel<30 days: No Contact w/Intl Traveler<30days: No Traveled to known affect area: No History of Present Illness HPI 61-year-old male with long-standing history of alcohol dependency, presents to emergency department for evaluation, seeking detox from alcohol. Patient frequents emergency department and request the same. States that he is done drinking. Denies suicidal or homicidal ideations. He states that he drinks a gallon of vodka today area denies chest pain or tightness. No abdominal pain, nausea, vomiting. No other symptoms to report. PFSH Past Medical History Atrial Fibrillation: Yes Blood Disorders: No Anxiety: Yes Depression: Yes Heart Rhythm Problems: No Cancer: No Cardiovascular Problems: No High Cholesterol: No Chest Pain: No Congestive Heart Failure: No Cerebrovascular Accident: No Diabetes: No Dialysis: No Diminished Hearing: No Endocrine: No Gastrointestinal Disorders: Yes (Colitis) GERD: No Genitourinary: No Hepatitis: Yes (HEP C) Hiatal Hernia: No Heparin Induced Thrombocytopen: No Hypertension: Yes Immune Disorder: No Implanted Vascular Access Dvce: No Kidney Stones: No Musculoskeletal: No Neurologic: No Psychiatric: No Reproductive: No Respiratory: No Immunizations Current: Yes Migraines: No Renal Failure: No Seizures: Yes Sickle Cell Disease: No Ulcer: No Past Surgical History Abdominal Surgery: No AICD: No Arteriovenous Shunt: No Cardiac Surgery: No Ear Surgery: No Endocrine Surgery: No Eye Surgery: No Genitourinary Surgery: No Gynecologic Surgery: Yes Insulin Pump: No Joint Replacement: No Neurologic Surgery: No Oral Surgery: Yes Pacemaker: No Thoracic Surgery: No Social History Alcohol Use: Yes (DAILY) Tobacco Use: No Substance Use: Yes Allergies-Medications (Allergen,Severity, Reaction): Coded Allergies: Penicillins (Verified Allergy, Unknown, 02/13/17) pt states he has had it before but not sure why its on his record and family members are allergic to penicillin Reported Meds & Prescriptions Reported Meds & Active Scripts Active Review of Systems ROS Limitations: Intoxication Except as stated in HPI: all other systems reviewed are Neg Physical Exam Exam Limitations: Intoxication Narrative GENERAL: Well-nourished male patient, ambulatory with an unsteady gait, no acute distress SKIN: Focused skin assessment warm/dry. HEAD: Atraumatic. Normocephalic. EYES: Pupils equal and round. Bilateral scleral icterus. No injection or drainage. ENT: No nasal bleeding or discharge. Mucous membranes pink and moist. NECK: Trachea midline. No JVD. CARDIOVASCULAR: Regular rate and rhythm. No murmur appreciated. RESPIRATORY: No accessory muscle use. Coarse to auscultation. Breath sounds equal bilaterally. GASTROINTESTINAL: Abdomen soft, non-tender, nondistended. Hepatic and splenic margins not palpable. MUSCULOSKELETAL: No obvious deformities. No clubbing. No cyanosis. No edema. NEUROLOGICAL: Awake and alert. No obvious cranial nerve deficits. Motor grossly within normal limits. Slurred speech. Data Data Last Documented VS Vital Signs Date Time Temp Pulse Resp B/P (MAP) Pulse Ox O2 Delivery O2 Flow Rate FiO2 02/13/17 20:37 97.8 90 15 91/61 (71) 97 Room Air MDM Medical Decision Making Medical Screen Exam Complete: Yes Emergency Medical Condition: Yes Medical Record Reviewed: Yes Differential Diagnosis Alcohol intoxication versus dependency versus mood disorder versus personality disorder Narrative Course 61-year-old male presents for his primary requesting detox. Patient has been seen several times in the emergency department for this. Denies fever or chills. He appears without distress. He does appear clinically intoxicated with slurred speech and unsteady gait. He'll be monitored until he is clinically sober at which time he'll be discharged with resource packet for outpatient detox. Diagnosis Primary Impression: alcohol dependency Referrals: [facility] (Out patient) Patient Instructions: Alcohol Dependence (ED), General Instructions Additional Instructions: Consume alcohol in moderation Follow-up with a primary care provider Return immediately with any acute worsening of symptoms Med/Other Pt SpecificInfo: No Meds Exist/No RX given Disposition: 01 DISCHARGE HOME Condition: Stable Nanda Downing JEVON Feb 13, 2017 22:02
== END 2017-02-14 06:34 | disposition home or self-care (01) ==
LOC: NEPD 20:28
DX: F10.20 Alcohol dependence, uncomplicated (principal); I48.91 Unspecified atrial fibrillation; I10 Essential (primary) hypertension
CPT/HCPCS: 99283

== ENCOUNTER 2017-02-14 17:36 | Emergency (ER) | payer OTHER ==
[~2017-02-14] VITALS: Ht 180.3 cm; Wt 78.0 kg
[2017-02-14 18:33] VITALS: BP 118/70; PULSE 96; RESP 20; TEMP 97.8; O2SAT 94
--- NOTE | 2017-02-14 20:38 | PD ---
HPI Chief Complaint: Alcohol/Drug Intoxication Time Seen by Provider: 20:28 Travel History International Travel<30 days: No Contact w/Intl Traveler<30days: No Traveled to known affect area: No History of Present Illness HPI Patient comes emergency Department under a Servin's act by police for alcohol intoxication. Per Servin's act patient was found drunk at [facility] and told police he wanted help for his alcoholism. Patient was reported "highly intoxicated" and "unable to maintain balance on his own, had slurred speech, glossy red eyes, etc.." Patient reportedly told the precinct police lieutenant he just wanted help with his alcoholism after finishing a pint of vodka. Patient denies any medical complaints currently states he is wants to go home. Patient appears highly intoxicated and is unable to contribute much to his history of present illness. Denies any chest pain, shortness of breath, headache, nausea, vomiting, or abdominal pain. Patient has an abrasion on his left temporal appears old however patient is been here twice recently and I see no mention of this, so will evaluated with a CT scan of the head. PFSH Past Medical History Atrial Fibrillation: Yes Blood Disorders: No Anxiety: Yes Depression: Yes Heart Rhythm Problems: No Cancer: No Cardiovascular Problems: No High Cholesterol: No Chest Pain: No Congestive Heart Failure: No Cerebrovascular Accident: No Diabetes: No Dialysis: No Diminished Hearing: No Endocrine: No Gastrointestinal Disorders: Yes (Colitis) GERD: No Genitourinary: No Hepatitis: Yes (HEP C) Hiatal Hernia: No Heparin Induced Thrombocytopen: No Hypertension: Yes Immune Disorder: No Implanted Vascular Access Dvce: No Kidney Stones: No Musculoskeletal: No Neurologic: No Psychiatric: No Reproductive: No Respiratory: No Immunizations Current: Yes Migraines: No Renal Failure: No Seizures: Yes Sickle Cell Disease: No Ulcer: No Past Surgical History Abdominal Surgery: No AICD: No Arteriovenous Shunt: No Cardiac Surgery: No Ear Surgery: No Endocrine Surgery: No Eye Surgery: No Genitourinary Surgery: No Gynecologic Surgery: Yes Insulin Pump: No Joint Replacement: No Neurologic Surgery: No Oral Surgery: Yes Pacemaker: No Thoracic Surgery: No Social History Alcohol Use: Yes (DAILY) Tobacco Use: No Substance Use: Yes Allergies-Medications (Allergen,Severity, Reaction): Coded Allergies: Penicillins (Verified Allergy, Unknown, 02/13/17) pt states he has had it before but not sure why its on his record and family members are allergic to penicillin Reported Meds & Prescriptions Reported Meds & Active Scripts Active No Active Prescriptions or Reported Medications Review of Systems ROS Limitations: Intoxication Except as stated in HPI: all other systems reviewed are Neg Physical Exam Exam Limitations: Intoxication Narrative GENERAL: Well-developed, well nourished, in no acute distress, and non-ill appearing. Alcohol noted on breath SKIN: Focused skin assessment warm and dry. Superficial abrasion noted left temporal appears old. HEAD: Atraumatic. Normocephalic. EYES: Pupils equal and round. EOMI. No scleral icterus. No injection or drainage. ENT: No nasal bleeding or discharge. Mucous membranes pink and moist. NECK: Trachea midline. Supple. No nuclear rigidity. CARDIOVASCULAR: Regular rate and rhythm. No murmur appreciated. RESPIRATORY: No accessory muscle use. No respiratory distress. Clear to auscultation. Breath sounds equal bilaterally. MUSCULOSKELETAL: No obvious deformities. No clubbing. No cyanosis. No edema. Full range of motion. NEUROLOGICAL: Awake and alert. No obvious cranial nerve deficits. Motor grossly within normal limits. Slurred speech. PSYCHIATRIC: Intoxicated. Data Data Last Documented VS Vital Signs Date Time Temp Pulse Resp B/P (MAP) Pulse Ox O2 Delivery O2 Flow Rate FiO2 02/14/17 18:33 97.8 96 20 118/70 (86) [address] Brain W/O Iv Contrast(Rout) (02/14/17 ) [facility] Medical Decision Making Medical Screen Exam Complete: Yes Emergency Medical Condition: Yes Interpretation(s) Head CT read by the radiologist shows: No acute intracranial abnormality. Differential Diagnosis Alcohol intoxication, closed head injury, intracranial hemorrhage, old abrasion , other Narrative Course Patient was seen and examined. CT is obtained and read by the radiologist. Patient is well-known to this emergency department has been here multiple times intoxicated at this point no additional workup is needed. Patient will be monitored in the emergency department until clinically sober and able to ambulate on their own or until a sober responsible adult comes to pick them up. RN is aware of this. Marchman act be lifted that time and patient can be reevaluated prior to discharge for any acute complaints. Diagnosis Primary Impression: Alcohol abuse with intoxication Referrals: [facility] Behavioral Patient Instructions: Abuse of Alcohol (ED), Alcohol Intoxication (ED), General Instructions Additional Instructions: Follow-up with [facility] for alcohol detox. Return to the emergency department if symptoms get worse. Scripts No Active Prescriptions or Reported Meds Disposition: 01 DISCHARGE HOME Condition: Hua De La Fuente Feb 14, 2017 20:38
--- NOTE | 2017-02-14 21:50 | RADRPT ---
EXAM DATE/TIME: 02/14/2017 21:14 [place] COMPARISON: CT BRAIN W/O CONTRAST, October 26, 2016, 19:40. INDICATIONS : Altered mental status, abrasion left temporal. RADIATION DOSE: 56.35 CTDIvol (mGy) MEDICAL HISTORY : Seizures. Hypertension. A-fib, ETOH SURGICAL HISTORY : None. ENCOUNTER: Initial ACUITY: 1 day PAIN SCALE: Non-responsive LOCATION: cranial TECHNIQUE: Multiple contiguous axial images were obtained of the head. Using automated exposure control and adj ustment of the mA and/or kV according to patient size, radiation dose was kept as low as reasonably a chievable to obtain optimal diagnostic quality images. DICOM format image data is available electro nically for review and comparison. FINDINGS: CEREBRUM: The ventricles are normal for age. No evidence of midline shift, mass lesion, hemorrhage or acute in farction. No extra-axial fluid collections are seen. POSTERIOR FOSSA: The cerebellum and brainstem are intact. The 4th ventricle is midline. The cerebellopontine angle i s unremarkable. EXTRACRANIAL: The visualized portion of the orbits is intact. SKULL: The calvaria is intact. No evidence of skull fracture. CONCLUSION: No acute intracranial abnormality. Stephen Giles MD on February 14, 2017 at 21:48 Board Certified Radiologist. This report was verified electronically.
== END 2017-02-15 06:15 | disposition home or self-care (01) ==
LOC: NEDAMB 17:36 → NEPD 02-15 06:15
DX: F10.920 Alcohol use, unspecified with intoxication, uncomplicated (principal); I48.91 Unspecified atrial fibrillation; I10 Essential (primary) hypertension
CPT/HCPCS: 70450; 99284

== ENCOUNTER 2017-02-16 13:36 | Emergency (ER) | payer SELFPAY ==
[2017-02-16 13:55] VITALS: BP 123/67; PULSE 91; RESP 17; TEMP 98.4; O2SAT 95
== END 2017-02-16 18:59 | disposition left against medical advice (07) ==
LOC: NED 13:36
DX: F32.9 Major depressive disorder, single episode, unspecified (principal); Z53.21 Procedure and treatment not carried out due to patient leaving prior to being seen by health care provider
CPT/HCPCS: 99281

== ENCOUNTER 2017-02-17 10:55 | Emergency (ER) | payer OTHER ==
[2017-02-17 11:01] VITALS: BP 152/76; PULSE 68; RESP 16; TEMP 98.4; O2SAT 99
--- NOTE | 2017-02-17 11:27 | PD ---
HPI Chief Complaint: Medical Clearance Time Seen by Provider: 11:09 Travel History International Travel<30 days: No Contact w/Intl Traveler<30days: No Traveled to known affect area: No History of Present Illness HPI 61-year-old male who is well known to the emergency department for alcohol abuse and alcohol intoxication presents to the emergency Department under Gutierres act by local police for suicidal ideation. The patient states he has had a gallon of vodka today. He denies any suicidal or homicidal ideation to me. Patient states that he wants to quit drinking and wants detox. He has been seen on multiple occasions for the same. His been referred to [facility] several times. The patient states that he was unable to complete detox in the past. Patient reports history of hepatitis C. He is not currently on any chronic medications. He has no medical complaints at this time. PFSH Past Medical History Atrial Fibrillation: Yes Blood Disorders: No Anxiety: Yes Depression: Yes Heart Rhythm Problems: No Cancer: No Cardiovascular Problems: No High Cholesterol: No Chest Pain: No Congestive Heart Failure: No Cerebrovascular Accident: No Diabetes: No Dialysis: No Diminished Hearing: No Endocrine: No Gastrointestinal Disorders: Yes (Colitis) GERD: No Genitourinary: No Hepatitis: Yes (HEP C) Hiatal Hernia: No Heparin Induced Thrombocytopen: No Hypertension: Yes Immune Disorder: No Implanted Vascular Access Dvce: No Kidney Stones: No Musculoskeletal: No Neurologic: No Psychiatric: No Reproductive: No Respiratory: No Immunizations Current: Yes Migraines: No Renal Failure: No Seizures: Yes Sickle Cell Disease: No Ulcer: No Past Surgical History Abdominal Surgery: No AICD: No Arteriovenous Shunt: No Cardiac Surgery: No Ear Surgery: No Endocrine Surgery: No Eye Surgery: No Genitourinary Surgery: No Gynecologic Surgery: Yes Insulin Pump: No Joint Replacement: No Neurologic Surgery: No Oral Surgery: Yes Pacemaker: No Thoracic Surgery: No Social History Alcohol Use: Yes (DAILY) Tobacco Use: No Substance Use: Yes Allergies-Medications (Allergen,Severity, Reaction): Coded Allergies: Penicillins (Verified Allergy, Unknown, 02/13/17) pt states he has had it before but not sure why its on his record and family members are allergic to penicillin Reported Meds & Prescriptions Reported Meds & Active Scripts Active No Active Prescriptions or Reported Medications Review of Systems Except as stated in HPI: all other systems reviewed are Neg Physical Exam Narrative GENERAL: Unkempt male patient, afebrile. SKIN: Focused skin assessment warm/dry. HEAD: Normocephalic. Atraumatic. EYES: No scleral icterus. No injection or drainage. NECK: Supple, trachea midline. No JVD or lymphadenopathy. CARDIOVASCULAR: Regular rate and rhythm without murmurs, gallops, or rubs. RESPIRATORY: Breath sounds equal bilaterally. No accessory muscle use. Lungs sounds are clear to auscultation. GASTROINTESTINAL: Abdomen soft, non-tender, nondistended. MUSCULOSKELETAL: No cyanosis, or edema. PSYCHIATRIC: No delusional thought processes. No hallucinations. Data Data Last Documented VS Vital Signs Date Time Temp Pulse Resp B/P (MAP) Pulse Ox O2 Delivery O2 Flow Rate FiO2 02/17/17 11:01 98.4 68 16 152/76 (101) 99 Orders Orders Psych Screen (02/17/17 11:22) MDM Medical Decision Making Medical Screen Exam Complete: Yes Emergency Medical Condition: Yes Medical Record Reviewed: Yes Differential Diagnosis Alcohol intoxication versus alcohol abuse versus mood disorder versus depression Narrative Course 61-year-old male presents to the emergency Department under Gutierres act by local police. Patient is well-known to the emergency department for alcohol intoxication. He denies suicidal ideation to me, but is requesting detox. I reviewed previous labs from January 26, 2017. He has no medical complaints today. Patient is medically cleared for psychiatric screening and disposition. Mental health screening discussed with the patient. Psychiatric screen ordered. Patient was seen by Kasey psychiatric nurse practitioner and denied suicidal ideation to her as well. The Gutierres act was lifted by JEVON Parks. The patient will be allowed to rest in the emergency department until clinically sober. Diagnosis Primary Impression: Alcohol abuse with intoxication [facility] Behavioral Patient Instructions: Abuse of Alcohol (ED), General Instructions Additional Instructions: Follow up at [facility] for alcohol detox. Return to the emergency department for any acute worsening of symptoms. Med/Other Pt SpecificInfo: No Change to Meds Scripts No Active Prescriptions or Reported Meds Disposition: DISCHARGE HOME Condition: Stable Luciana Sellers Feb 17, 2017 11:27
--- NOTE | 2017-02-17 15:01 | PD ---
History of Present Illness Chief Complaint: Medical Clearance Time Seen by Provider: 14:30 Travel History International Travel<30 Days: No Contact w/Intl Traveler<30days: No Known affected area: No Legal Status Legal Status: Gutierres Act Gutierres Act Signed By: Checo Fermin History of Present Illness: History of Present Illness 61-year-old male with history of alcohol dependence, well known to the emergency department presents to the emergency Department under Gutierres act by local police for suicidal ideation. The gutierres act alleges that"kelley Kincaid is homeless male who said he wanted to kill himself. Sanjiv said he has been depressed for several years after his left him. He appeared intoxicated". ED documentation indicated that he reported he had a gallon of vodka today although he does not appear to be severely intoxicated when I see him. he also indicated to them that he wanted to stop drinking and wanted to go to detox. EMR reviewed. He has presented to ED thirteen times in the month of January for alcohol intoxication. Today the patient is awake, alert, oriented. he is engaging, speech is clear and logical. He is unkempt, malodorous. he is not psychotic. He states " The police brought me here but I don't ask to come here. I don't want to stop drinking. If I wanted to stop drinking I would. I am not suicdal and I don't want to hurt anyone else". I cannot go to [facility] because they have trespassed me from there so The police brings me here". PFSH Past Medical History Atrial Fibrillation: Yes Blood Disorders: No Anxiety: Yes Depression: Yes Heart Rhythm Problems: No Cancer: No Cardiovascular Problems: No High Cholesterol: No Chest Pain: No Congestive Heart Failure: No Cerebrovascular Accident: No Diabetes: No Dialysis: No Diminished Hearing: No Endocrine: No Gastrointestinal Disorders: Yes (Colitis) GERD: No Genitourinary: No Hepatitis: Yes (HEP C) Hiatal Hernia: No Heparin Induced Thrombocytopen: No Hypertension: Yes Immune Disorder: No Implanted Vascular Access Dvce: No Kidney Stones: No Musculoskeletal: No Neurologic: No Psychiatric: No Reproductive: No Respiratory: No Immunizations Current: Yes Migraines: No Renal Failure: No Seizures: Yes Sickle Cell Disease: No Ulcer: No Past Surgical History Abdominal Surgery: No AICD: No Arteriovenous Shunt: No Cardiac Surgery: No Ear Surgery: No Endocrine Surgery: No Eye Surgery: No Genitourinary Surgery: No Gynecologic Surgery: Yes Insulin Pump: No Joint Replacement: No Neurologic Surgery: No Oral Surgery: Yes Pacemaker: No Thoracic Surgery: No Psychiatric History Psychiatric History Hx Psychiatric Treatment: HX: DEPRESSION. Not in tx History of Inpatient Treatment: Yes Guns or firearms in home: No Social History male. Homeless, unemployed. Hx Alcohol Use: Yes (DAILY, large quantities for many years. ) Hx Tobacco Use: No Hx Substance Use: Yes Substance Use Type: Alcohol Other Substances Used: last alcohol 0200 and last heroin 3 days ago Hx of Substance Use Treatment: Yes Family Psychiatric History None reported. Allergies-Medications (Allergen,Severity, Reaction): Coded Allergies: Penicillins (Verified Allergy, Unknown, 02/13/17) pt states he has had it before but not sure why its on his record and family members are allergic to penicillin Reported Meds & Prescriptions Reported Meds & Active Scripts Active No Active Prescriptions or Reported Medications Review of Systems Except as stated in HPI: all other systems reviewed are Neg Exam Alert: Yes [place]: Person (ox4) Mood: Calm Affect: Appropriate Speech: Clear, Logical Eye Contact: Normal Memory Intact: Comment (No gross abnormality) Hallucinations: Other (Negative) Delusions: No Suicidal: Ideation (negative) Homicidal: Ideation (Negative) Insight/Judgement Poor. Not impaired. MDM Medical Decision Making Medical Record Reviewed: Yes Assessment/Plan 61-year-old male with history of alcohol dependence, well known to the emergency department presents to the emergency Department under Gutierres act by local police for suicidal ideation. The gutierres act alleges that"kelley Kincaid is homeless male who said he wanted to kill himself. Sanjiv said he has been depressed for several years after his left him. He appeared intoxicated". The patient at this time is clear, alert. He denies any suicidal or homicidal ideation, intent or plan. he is not wanting detox and states " If I wanted to stop I would". He does not meet Gutierres act criteria. The Gutierres act will be lifted. Clear from psychiatry for discharge once he is medically cleared to do so. Orders Orders Psych Screen (02/17/17 11:22) Results Vital Signs Date Time Temp Pulse Resp B/P (MAP) Pulse Ox O2 Delivery O2 Flow Rate FiO2 02/17/17 11:01 98.4 68 16 152/76 (101) 99 Diagnosis Primary Impression: Alcohol abuse with intoxication Psychiatrically Cleared: Yes Referrals: [facility] Behavioral Departure Forms: Tests/Procedures Patient Instructions: General Instructions, Abuse of Alcohol (ED) Additional Instructions: Follow up at [facility] for alcohol detox. Return to the emergency department for any acute worsening of symptoms. Med/ Other Pt Specific Info: No Meds Exist/No RX given Prescriptions No Active Prescriptions or Reported Meds Disposition: 01 DISCHARGE HOME Condition: Stable Kasey Taylor Feb 17, 2017 15:01
== END 2017-02-17 15:00 | disposition home or self-care (01) ==
LOC: NEPE 10:55
DX: F10.129 Alcohol abuse with intoxication, unspecified (principal); R45.851 Suicidal ideations; I48.91 Unspecified atrial fibrillation; F41.9 Anxiety disorder, unspecified; F32.9 Major depressive disorder, single episode, unspecified; B19.20 Unspecified viral hepatitis C without hepatic coma; I10 Essential (primary) hypertension; Z59.0 Homelessness; Z88.0 Allergy status to penicillin
CPT/HCPCS: 99283

== ENCOUNTER 2017-02-17 20:11 | Emergency (ER) | payer OTHER ==
[~2017-02-17] VITALS: Ht 182.9 cm; Wt 73.0 kg
[2017-02-17 20:38] VITALS: BP 152/85; PULSE 55; RESP 16; TEMP 97.8; O2SAT 97
[2017-02-17 21:37] LABS: BASOPHIL % 0.7 % (0.0-2.0); EOSINOPHIL # 0.1 TH/MM3 (0-0.4); EOSINOPHIL % 1.7 % (0.0-4.0); HEMATOCRIT 42.9 % (39.0-51.0); HEMO FLAGS DIFF FINAL; MEAN CELL VOLUME 97.5 FL (80.0-100.0); MEAN CORPUSCULAR HEMOGLOBIN 32.8 PG (27.0-34.0); MEAN CORPUSCULAR HGB CONC 33.6 % (32.0-36.0); MONO % 7.1 % (0.0-8.0); NEUT % 45.5 % (16.0-70.0); PLATELET COUNT 148 TH/MM3 (150-450); RED CELL DISTRIBUTION WIDTH 13.8 % (11.6-17.2); WHITE BLOOD COUNT 6.7 TH/MM3 (4.0-11.0)
[2017-02-17 21:39] LABS: ANION GAP 9 MEQ/L (5-15); BICARBONATE 25.2 MEQ/L (21.0-32.0); BLOOD UREA NITROGEN 6 MG/DL (7-18); CHLORIDE 111 MEQ/L (98-107); GLOMERULAR FILTRATION RATE 115 ML/MIN (>89); POTASSIUM 3.4 MEQ/L (3.5-5.1); SODIUM (NA) 145 MEQ/L (136-145)
[2017-02-17 21:40] LABS: ALT (GPT) 44 U/L (12-78); AST (GOT) 69 U/L (15-37)
[2017-02-17 21:51] LABS: ALKALINE PHOSPHATASE 133 U/L (45-117); TOTAL BILIRUBIN ADULT 0.5 MG/DL (0.2-1.0)
[2017-02-17 21:56] LABS: ALCOHOL 400 MG/DL (0-5)
--- NOTE | 2017-02-17 22:04 | PD ---
HPI Chief Complaint: Psychiatric Symptoms Time Seen by Provider: 20:35 Travel History International Travel<30 days: No Contact w/Intl Traveler<30days: No Traveled to known affect area: No History of Present Illness HPI Patient is a 61 year old male who is brought in by police under a Gutierres Act. He was just released from here a few hours ago. He says he just doesn't want to live any more. He says he is very depressed and want to . He has no medical complaints. He admits to drinking today. PFSH Past Medical History Atrial Fibrillation: Yes Blood Disorders: No Anxiety: Yes Depression: Yes Heart Rhythm Problems: No Cancer: No Cardiovascular Problems: Yes (palpitation) High Cholesterol: No Chest Pain: No Congestive Heart Failure: No Cerebrovascular Accident: No Diabetes: No Dialysis: No Diminished Hearing: No Endocrine: No Gastrointestinal Disorders: Yes (Colitis) GERD: No Genitourinary: No Hepatitis: Yes (HEP C) Hiatal Hernia: No Heparin Induced Thrombocytopen: No Hypertension: Yes Immune Disorder: No Implanted Vascular Access Dvce: No Kidney Stones: No Musculoskeletal: No Neurologic: No Psychiatric: No Reproductive: No Respiratory: No Immunizations Current: Yes Migraines: No Renal Failure: No Seizures: Yes Sickle Cell Disease: No Ulcer: No Tetanus Vaccination: < 5 Years Influenza Vaccination: Yes Past Surgical History Abdominal Surgery: No AICD: No Arteriovenous Shunt: No Cardiac Surgery: No Ear Surgery: No Endocrine Surgery: No Eye Surgery: No Genitourinary Surgery: No Gynecologic Surgery: Yes Insulin Pump: No Joint Replacement: No Neurologic Surgery: No Oral Surgery: Yes Pacemaker: No Thoracic Surgery: No Other Surgery: Yes (UNKNOWN BACK SURGERY) Social History Alcohol Use: Yes (DAILY, large quantities for many years. ) Tobacco Use: No Substance Use: Yes Allergies-Medications (Allergen,Severity, Reaction): Coded Allergies: Penicillins (Verified Allergy, Unknown, 02/18/17) pt states he has had it before but not sure why its on his record and family members are allergic to penicillin Reported Meds & Prescriptions Reported Meds & Active Scripts Active No Active Prescriptions or Reported Medications Review of Systems Except as stated in HPI: all other systems reviewed are Neg General / Constitutional: No: Fever, Chills Eyes: No: Blurred Vision HENT: No: Headaches, Lightheadedness Cardiovascular: No: Chest Pain or Discomfort Respiratory: No: Shortness of Breath Gastrointestinal: No: Nausea, Vomiting Musculoskeletal: No: Myalgias, Pain Skin: No Rash, No Change in Pigmentation Neurologic: No: Weakness, Dizziness Psychiatric: Positive: Suicidal Ideations Physical Exam Narrative GENERAL: Awake and alert, unkept, alcohol on breath SKIN: Focused skin assessment warm/dry. No wounds HEAD: Atraumatic. Normocephalic. EYES: Pupils equal and round. No scleral icterus. Extraocular movements intact ENT: Mucous membranes pink and moist. NECK: Trachea midline. No JVD. CARDIOVASCULAR: Regular rate and rhythm. No murmur appreciated. RESPIRATORY: No accessory muscle use. Clear to auscultation. Breath sounds equal bilaterally. GASTROINTESTINAL: Abdomen soft, non-tender, nondistended. MUSCULOSKELETAL: No obvious deformities. No clubbing. No cyanosis. No edema. NEUROLOGICAL: Awake and alert. No obvious cranial nerve deficits. Motor grossly within normal limits. Normal speech. PSYCHIATRIC: Appropriate mood and affect; insight and judgment normal. Data Data Last Documented VS Vital Signs Date Time Temp Pulse Resp B/P (MAP) Pulse Ox O2 Delivery O2 Flow Rate FiO2 02/18/17 15:35 02/18/17 14:05 72 18 96 Room Air 02/17/17 20:38 97.8 Orders Orders Complete Blood Count With Diff (02/17/17 20:35) Comprehensive Metabolic Panel (02/17/17 20:35) Psych Screen (02/17/17 20:35) Drug Screen, Random Urine (02/17/17 20:35) Alcohol (Ethanol) (02/17/17 20:35) Lipase (02/17/17 20:35) Alcohol Withdrawal Asmt-Ciwa ONCE (02/17/17 22:04) Flumazenil Inj (Romazicon Inj) (02/17/17 22:15) Lorazepam (Ativan) (02/17/17 22:15) Lorazepam Inj (Ativan Inj) (02/17/17 22:15) Lorazepam (Ativan) (02/17/17 22:15) Lorazepam Inj (Ativan Inj) (02/17/17 22:15) Lorazepam Inj (Ativan Inj) (02/17/17 22:15) Lorazepam Inj (Ativan Inj) (02/17/17 22:15) Diet Regular Basic (02/18/17 Lunch) Labs Laboratory Tests Test 02/17/17 20:50 White Blood Count 6.7 TH/MM3 Red Blood Count 4.40 MIL/MM3 Hemoglobin 14.4 GM/DL Hematocrit 42.9 % Mean Corpuscular Volume 97.5 FL Mean Corpuscular Hemoglobin 32.8 PG Mean Corpuscular Hemoglobin Concent 33.6 % Red Cell Distribution Width 13.8 % Platelet Count 148 TH/MM3 Mean Platelet Volume 6.7 FL Neutrophils (%) (Auto) 45.5 % Lymphocytes (%) (Auto) 45.0 % Monocytes (%) (Auto) 7.1 % Eosinophils (%) (Auto) 1.7 % Basophils (%) (Auto) 0.7 % Neutrophils # (Auto) 3.0 TH/MM3 Lymphocytes # (Auto) 3.0 TH/MM3 Monocytes # (Auto) 0.5 TH/MM3 Eosinophils # (Auto) 0.1 TH/MM3 Basophils # (Auto) 0.0 TH/MM3 CBC Comment DIFF FINAL Differential Comment Blood Urea Nitrogen 6 MG/DL Creatinine 0.70 MG/DL Random Glucose 71 MG/DL Total Protein 8.1 GM/DL Albumin 3.5 GM/DL Calcium Level 8.3 MG/DL Alkaline Phosphatase 133 U/L Aspartate Amino Transf (AST/SGOT) 69 U/L Alanine Aminotransferase (ALT/SGPT) 44 U/L Total Bilirubin 0.5 MG/DL Sodium Level 145 MEQ/L Potassium Level 3.4 MEQ/L Chloride Level 111 MEQ/L Carbon Dioxide Level 25.2 MEQ/L Anion Gap 9 MEQ/L Estimat Glomerular Filtration Rate 115 ML/MIN Lipase 351 U/L Urine Opiates Screen NEG Urine Barbiturates Screen NEG Urine Amphetamines Screen NEG Urine Benzodiazepines Screen POS Urine Cocaine Screen NEG Urine Cannabinoids Screen NEG Ethyl Alcohol Level 400 MG/DL MDM Medical Decision Making Medical Screen Exam Complete: Yes Emergency Medical Condition: Yes Medical Record Reviewed: Yes Differential Diagnosis Malingering versus intoxication versus psychosis Narrative Course Patient is a 61-year-old male brought in by police under Gutierres act. He states he wants to kill himself. He has no medical complaints. Labs sent show no elevated alcohol level of 400. Patient will be medically cleared to be seen by psychiatry again. Diagnosis Primary Impression: Alcohol intoxication Qualified Codes: F10.920 - Alcohol use, unspecified with intoxication, uncomplicated Additional Impression: Suicidal ideations Scripts No Active Prescriptions or Reported Meds Condition: Alice Hatfield MD Feb 17, 2017 22:04
[2017-02-17] MEDS ORDERED: LORazepam 2 MG/ML VIAL IV PUSH PRN ×4 (22:15)
[2017-02-17] MEDS ORDERED: LORazepam 2 MG TAB PO PRN (22:15)
[2017-02-17] MEDS ORDERED: LORazepam 1 MG TAB PO PRN (22:15)
[2017-02-17] MEDS ORDERED: FLUMAZENIL 0.5 MG/5 ML VIAL IV PUSH PRN (22:15)
[2017-02-18 07:44] VITALS: BP 154/80; PULSE 65; RESP 18; O2SAT 98
[2017-02-18 14:05] VITALS: BP 144/76; PULSE 72; RESP 18; O2SAT 96
--- NOTE | 2017-02-18 15:14 | PD ---
Data Data Last Documented VS Vital Signs Date Time Temp Pulse Resp B/P (MAP) Pulse Ox O2 Delivery O2 Flow Rate FiO2 02/18/17 14:05 72 18 144/76 (98) 96 Room Air 02/17/17 20:38 97.8 Orders Orders Complete Blood Count With Diff (02/17/17 20:35) Comprehensive Metabolic Panel (02/17/17 20:35) Psych Screen (02/17/17 20:35) Drug Screen, Random Urine (02/17/17 20:35) Alcohol (Ethanol) (02/17/17 20:35) Lipase (02/17/17 20:35) Alcohol Withdrawal Asmt-Ciwa ONCE (02/17/17 22:04) Flumazenil Inj (Romazicon Inj) (02/17/17 22:15) Lorazepam (Ativan) (02/17/17 22:15) Lorazepam Inj (Ativan Inj) (02/17/17 22:15) Lorazepam (Ativan) (02/17/17 22:15) Lorazepam Inj (Ativan Inj) (02/17/17 22:15) Lorazepam Inj (Ativan Inj) (02/17/17 22:15) Lorazepam Inj (Ativan Inj) (02/17/17 22:15) Diet Regular Basic (02/18/17 Lunch) Labs Laboratory Tests Test 02/17/17 20:50 White Blood Count 6.7 TH/MM3 Red Blood Count 4.40 MIL/MM3 Hemoglobin 14.4 GM/DL Hematocrit 42.9 % Mean Corpuscular Volume 97.5 FL Mean Corpuscular Hemoglobin 32.8 PG Mean Corpuscular Hemoglobin Concent 33.6 % Red Cell Distribution Width 13.8 % Platelet Count 148 TH/MM3 Mean Platelet Volume 6.7 FL Neutrophils (%) (Auto) 45.5 % Lymphocytes (%) (Auto) 45.0 % Monocytes (%) (Auto) 7.1 % Eosinophils (%) (Auto) 1.7 % Basophils (%) (Auto) 0.7 % Neutrophils # (Auto) 3.0 TH/MM3 Lymphocytes # (Auto) 3.0 TH/MM3 Monocytes # (Auto) 0.5 TH/MM3 Eosinophils # (Auto) 0.1 TH/MM3 Basophils # (Auto) 0.0 TH/MM3 CBC Comment DIFF FINAL Differential Comment Blood Urea Nitrogen 6 MG/DL Creatinine 0.70 MG/DL Random Glucose 71 MG/DL Total Protein 8.1 GM/DL Albumin 3.5 GM/DL Calcium Level 8.3 MG/DL Alkaline Phosphatase 133 U/L Aspartate Amino Transf (AST/SGOT) 69 U/L Alanine Aminotransferase (ALT/SGPT) 44 U/L Total Bilirubin 0.5 MG/DL Sodium Level 145 MEQ/L Potassium Level 3.4 MEQ/L Chloride Level 111 MEQ/L Carbon Dioxide Level 25.2 MEQ/L Anion Gap 9 MEQ/L Estimat Glomerular Filtration Rate 115 ML/MIN Lipase 351 U/L Urine Opiates Screen NEG Urine Barbiturates Screen NEG Urine Amphetamines Screen NEG Urine Benzodiazepines Screen POS Urine Cocaine Screen NEG Urine Cannabinoids Screen NEG Ethyl Alcohol Level 400 MG/DL MDM Supervised Visit with DIANNE: No Narrative Course The patient was initially seen in the emergency department yesterday evening around 8:30 PM being brought in by [facility] with alcohol intoxication and suicidal comments. It is now 3:00 PM the following evening and the patient is now sober and tells me he wants to go home. He is denying suicidality. He reports that he was intoxicated and does not remember coming here. He is well-known to the emergency department and has presented here several times in the past with alcohol intoxication with suicidal statements. At this point I believe he is safe for discharge home. I will lift his Gutierres act. [facility] follow-up this week. Diagnosis Primary Impression: Alcohol intoxication Qualified Codes: F10.920 - Alcohol use, unspecified with intoxication, uncomplicated Referrals: [facility] 1 day Scripts No Active Prescriptions or Reported Meds Disposition: DISCHARGE HOME Condition: Stable Deni Kim MD Feb 18, 2017 15:14
== END 2017-02-18 15:45 | disposition home or self-care (01) ==
LOC: NEPD 20:11
DX: F10.129 Alcohol abuse with intoxication, unspecified (principal); R45.851 Suicidal ideations; I48.91 Unspecified atrial fibrillation; F41.9 Anxiety disorder, unspecified; B19.20 Unspecified viral hepatitis C without hepatic coma; I10 Essential (primary) hypertension; R56.9 Unspecified convulsions; Z88.0 Allergy status to penicillin
CPT/HCPCS: 80053; 80307; 83690; 85025; 99283

== ENCOUNTER 2017-02-18 19:02 | Emergency (ER) | payer SELFPAY ==
[2017-02-18 19:20] VITALS: BP 144/76; PULSE 57; RESP 18; TEMP 97.9; O2SAT 98
--- NOTE | 2017-02-18 20:12 | PD ---
HPI Chief Complaint: Alcohol/Drug Intoxication Time Seen by Provider: 20:06 Travel History International Travel<30 days: No Contact w/Intl Traveler<30days: No Traveled to known affect area: No History of Present Illness HPI Patient comes in to the emergency department after being found intoxicated. Patient states that he drank enough today to get heavily intoxicated. Patient denies any medical complaints at this time. Denies any chest pain, shortness of breath, fevers, headache, or abdominal pain. Denies suicidal or homicidal ideations. PFSH Past Medical History Atrial Fibrillation: Yes Blood Disorders: No Anxiety: Yes Depression: Yes Heart Rhythm Problems: No Cancer: No Cardiovascular Problems: Yes (palpitation) High Cholesterol: No Chest Pain: No Congestive Heart Failure: No Cerebrovascular Accident: No Diabetes: No Dialysis: No Diminished Hearing: No Endocrine: No Gastrointestinal Disorders: Yes (Colitis) GERD: No Genitourinary: No Hepatitis: Yes (HEP C) Hiatal Hernia: No Heparin Induced Thrombocytopen: No Hypertension: Yes Immune Disorder: No Implanted Vascular Access Dvce: No Kidney Stones: No Musculoskeletal: No Neurologic: No Psychiatric: No Reproductive: No Respiratory: No Immunizations Current: Yes Migraines: No Renal Failure: No Seizures: Yes Sickle Cell Disease: No Ulcer: No Past Surgical History Abdominal Surgery: No AICD: No Arteriovenous Shunt: No Cardiac Surgery: No Ear Surgery: No Endocrine Surgery: No Eye Surgery: No Genitourinary Surgery: No Gynecologic Surgery: Yes Insulin Pump: No Joint Replacement: No Neurologic Surgery: No Oral Surgery: Yes Pacemaker: No Thoracic Surgery: No Other Surgery: Yes (UNKNOWN BACK SURGERY) Social History Alcohol Use: Yes (DAILY, large quantities for many years. ) Tobacco Use: No Substance Use: Yes ( MUCH I CAN GET. STRAIGHT VODKA) Allergies-Medications (Allergen,Severity, Reaction): Coded Allergies: Penicillins (Verified Allergy, Unknown, 02/20/17) pt states he has had it before but not sure why its on his record and family members are allergic to penicillin Reported Meds & Prescriptions Reported Meds & Active Scripts Active No Active Prescriptions or Reported Medications Review of Systems ROS Limitations: Intoxication Except as stated in HPI: all other systems reviewed are Neg Physical Exam Exam Limitations: Intoxication Narrative GENERAL: Well-developed, well nourished, in no acute distress, and non-ill appearing. Alcohol noted on breath. SKIN: Focused skin assessment warm and dry. HEAD: Atraumatic. Normocephalic. EYES: Pupils equal and round. EOMI. No scleral icterus. No injection or drainage. ENT: No nasal bleeding or discharge. Mucous membranes pink and moist. NECK: Trachea midline. Supple. No nuclear rigidity. CARDIOVASCULAR: Regular rate and rhythm. No murmur appreciated. RESPIRATORY: No accessory muscle use. No respiratory distress. Clear to auscultation. Breath sounds equal bilaterally. MUSCULOSKELETAL: No obvious deformities. No clubbing. No cyanosis. No edema. Full range of motion. NEUROLOGICAL: Awake and alert. No obvious cranial nerve deficits. Motor grossly within normal limits. Normal speech. Data Data Last Documented VS Vital Signs Date Time Temp Pulse Resp B/P (MAP) Pulse Ox O2 Delivery O2 Flow Rate FiO2 02/19/17 05:29 02/19/17 05:22 72 16 96 Room Air 02/18/17 19:20 97.9 MDM Medical Decision Making Medical Screen Exam Complete: Yes Emergency Medical Condition: No Differential Diagnosis Alcohol intoxication, alcohol abuse, malingering Narrative Course Patient was seen and examined. Patient is well-known to this emergency department and has been here multiple times for same complaint. Patient will be monitored in the emergency department until clinically sober and able to ambulate on their own or until a sober responsible adult comes to pick them up. Patient can be reevaluated for any acute complaints at that time. RN is aware of this. Diagnosis Primary Impression: Alcohol abuse with intoxication Referrals: [facility] Patient Instructions: Abuse of Alcohol (ED), General Instructions Additional Instructions: Follow-up with [facility] for detox. Return to the emergency department if symptoms get worse. Scripts No Active Prescriptions or Reported Meds Disposition: 01 DISCHARGE HOME Condition: Stable Hua Zurita Feb 18, 2017 20:12
[2017-02-19 05:22] VITALS: BP 142/76; PULSE 72; RESP 16; O2SAT 96
== END 2017-02-19 05:31 | disposition home or self-care (01) ==
LOC: NEDAMB 19:02
DX: F10.129 Alcohol abuse with intoxication, unspecified (principal)
CPT/HCPCS: 99283

== ENCOUNTER 2017-02-19 14:21 | Emergency (ER) | payer SELFPAY ==
[~2017-02-19] VITALS: Ht 185.4 cm; Wt 85.0 kg
[2017-02-19 14:59] VITALS: BP 131/74; PULSE 101; RESP 15; TEMP 98; O2SAT 97
--- NOTE | 2017-02-19 15:30 | PD ---
HPI Chief Complaint: Alcohol/Drug Intoxication Time Seen by Provider: 15:21 Travel History International Travel<30 days: No Contact w/Intl Traveler<30days: No Traveled to known affect area: No History of Present Illness HPI 61-year-old male who is well-known to the emergency department for alcohol abuse , intoxication presents back to the emergency Department under Aranda act for alcohol intoxication. He is not intoxicated is able a parking lot was brought to the emergency department because he was impaired. The patient was here yesterday for the same and twice the day before. The patient has no medical complaints. He states he drink half a gallon of vodka today. He has tried detox in the past, but has never stuck with it. He is currently homeless. PFSH Past Medical History Atrial Fibrillation: Yes Blood Disorders: No Anxiety: Yes Depression: Yes Heart Rhythm Problems: No Cancer: No Cardiovascular Problems: Yes (palpitation) High Cholesterol: No Chest Pain: No Congestive Heart Failure: No Cerebrovascular Accident: No Diabetes: No Dialysis: No Diminished Hearing: No Endocrine: No Gastrointestinal Disorders: Yes (Colitis) GERD: No Genitourinary: No Hepatitis: Yes (HEP C) Hiatal Hernia: No Heparin Induced Thrombocytopen: No Hypertension: Yes Immune Disorder: No Implanted Vascular Access Dvce: No Kidney Stones: No Musculoskeletal: No Neurologic: No Psychiatric: No Reproductive: No Respiratory: No Immunizations Current: Yes Migraines: No Renal Failure: No Seizures: Yes Sickle Cell Disease: No Ulcer: No Past Surgical History Abdominal Surgery: No AICD: No Arteriovenous Shunt: No Cardiac Surgery: No Ear Surgery: No Endocrine Surgery: No Eye Surgery: No Genitourinary Surgery: No Gynecologic Surgery: Yes Insulin Pump: No Joint Replacement: No Neurologic Surgery: No Oral Surgery: Yes Pacemaker: No Thoracic Surgery: No Other Surgery: Yes (UNKNOWN BACK SURGERY) Social History Alcohol Use: Yes (DAILY, large quantities for many years. ) Tobacco Use: No Substance Use: Yes ( MUCH I CAN GET. STRAIGHT VODKA) Allergies-Medications (Allergen,Severity, Reaction): Coded Allergies: Penicillins (Verified Allergy, Unknown, 02/18/17) pt states he has had it before but not sure why its on his record and family members are allergic to penicillin Reported Meds & Prescriptions Reported Meds & Active Scripts Active No Active Prescriptions or Reported Medications Review of Systems Except as stated in HPI: all other systems reviewed are Neg Physical Exam Narrative GENERAL: Unkempt male patient, afebrile. SKIN: Focused skin assessment warm/dry. HEAD: Normocephalic. Atraumatic. EYES: No scleral icterus. No injection or drainage. NECK: Supple, trachea midline. No JVD or lymphadenopathy. CARDIOVASCULAR: Regular rate and rhythm without murmurs, gallops, or rubs. RESPIRATORY: Breath sounds equal bilaterally. No accessory muscle use. Lungs sounds are clear to auscultation. GASTROINTESTINAL: Abdomen soft, non-tender, nondistended. MUSCULOSKELETAL: No cyanosis, or edema. BACK: Nontender without obvious deformity. No CVA tenderness. Data Data Last Documented VS Vital Signs Date Time Temp Pulse Resp B/P (MAP) Pulse Ox O2 Delivery O2 Flow Rate FiO2 02/19/17 14:59 98.0 101 15 131/74 (93) 97 MDM Medical Decision Making Medical Screen Exam Complete: Yes Emergency Medical Condition: Yes Medical Record Reviewed: Yes Differential Diagnosis Alcohol intoxication versus alcohol abuse versus malingering Narrative Course 61-year-old male who is well-known to the emergency department for alcohol abuse , intoxication, presents back to the emergency Department under Aranda after alcohol intoxication. Patient just had lab work completed 2 days ago the emergency department. CBC showed no acute abnormality. CMP showed slightly elevated AST of 69, alkaline phosphatase 133. Urine drug screen was positive for benzodiazepines. Patient will be allowed to rest in the emergency department until clinically sober. Diagnosis Primary Impression: Alcohol abuse with intoxication Referrals: [facility] Patient Instructions: General Instructions Additional Instructions: Follow up with [facility] for detox. Follow-up with your primary care physician. Return to the emergency department for any acute worsening of symptoms. Med/Other Pt SpecificInfo: No Change to Meds Scripts No Active Prescriptions or Reported Meds Disposition: 01 DISCHARGE HOME Condition: Stable MarloLuciana Feb 19, 2017 15:30
== END 2017-02-19 17:44 | disposition home or self-care (01) ==
LOC: NEDAMB 14:21
DX: F10.129 Alcohol abuse with intoxication, unspecified (principal); I48.91 Unspecified atrial fibrillation; F41.9 Anxiety disorder, unspecified; F32.9 Major depressive disorder, single episode, unspecified; R00.2 Palpitations; B19.20 Unspecified viral hepatitis C without hepatic coma; I10 Essential (primary) hypertension; R56.9 Unspecified convulsions; Z59.0 Homelessness
CPT/HCPCS: 99283

== ENCOUNTER 2017-02-19 21:22 | Emergency (ER) | payer OTHER ==
[~2017-02-19] VITALS: Ht 182.9 cm; Wt 75.0 kg
[2017-02-19 21:53] VITALS: BP 125/85; PULSE 78; RESP 18; TEMP 98.2; O2SAT 97
--- NOTE | 2017-02-20 01:31 | PD ---
HPI Chief Complaint: Psychiatric Symptoms Time Seen by Provider: 01:13 Travel History International Travel<30 days: No Contact w/Intl Traveler<30days: No Traveled to known affect area: No History of Present Illness HPI This is a 61-year-old white male well-known to the ER staff for multiple visits for alcohol intoxication. The patient was seen earlier today and was discharged. He states that he went out and drank alcohol again. The patient does not recall making any suicidal homicidal statements. He states that only remembers is that he became drunk. The patient according to his Gutierres acted made suicidal statements in a convenience store. The patient was placed under Gutierres act. The patient here now has sobered up and now recants any suicidal or homicidal ideation. He states that he would like to go home. He denies any toxic ingestions. PFSH Past Medical History Atrial Fibrillation: Yes Blood Disorders: No Anxiety: Yes Depression: Yes Heart Rhythm Problems: No Cancer: No Cardiovascular Problems: Yes (palpitation) High Cholesterol: No Chest Pain: No Congestive Heart Failure: No Cerebrovascular Accident: No Diabetes: No Dialysis: No Diminished Hearing: No Endocrine: No Gastrointestinal Disorders: Yes (Colitis) GERD: No Genitourinary: No Hepatitis: Yes (HEP C) Hiatal Hernia: No Heparin Induced Thrombocytopen: No Hypertension: Yes Immune Disorder: No Implanted Vascular Access Dvce: No Kidney Stones: No Musculoskeletal: No Neurologic: No Psychiatric: No Reproductive: No Respiratory: No Immunizations Current: Yes Migraines: No Renal Failure: No Seizures: Yes Sickle Cell Disease: No Ulcer: No Tetanus Vaccination: Unknown Influenza Vaccination: No Past Surgical History Abdominal Surgery: No AICD: No Arteriovenous Shunt: No Cardiac Surgery: No Ear Surgery: No Endocrine Surgery: No Eye Surgery: No Genitourinary Surgery: No Gynecologic Surgery: Yes Insulin Pump: No Joint Replacement: No Neurologic Surgery: No Oral Surgery: Yes Pacemaker: No Thoracic Surgery: No Other Surgery: Yes (UNKNOWN BACK SURGERY) Social History Alcohol Use: Yes (DAILY, large quantities for many years. ) Tobacco Use: No Substance Use: Yes ( MUCH I CAN GET. STRAIGHT VODKA) Allergies-Medications (Allergen,Severity, Reaction): Coded Allergies: Penicillins (Verified Allergy, Unknown, 02/18/17) pt states he has had it before but not sure why its on his record and family members are allergic to penicillin Reported Meds & Prescriptions Reported Meds & Active Scripts Active No Active Prescriptions or Reported Medications Review of Systems Except as stated in HPI: all other systems reviewed are Neg Physical Exam Narrative GENERAL: Well-nourished, well-developed patient. SKIN: Warm and dry. HEAD: Normocephalic and atraumatic. EYES: No scleral icterus. No injection or drainage. ENT: No nasal drainage noted. Mucous membranes pink. Airway patent. NECK: Supple, trachea midline. Moves head freely without obvious discomfort. CARDIOVASCULAR: Regular rate and rhythm without murmurs, gallops, or rubs. RESPIRATORY: Breath sounds equal bilaterally. No accessory muscle use. GASTROINTESTINAL: Abdomen soft, non-tender, nondistended. EXTREMITIES: No cyanosis or edema. BACK: Nontender without obvious deformity. No CVA tenderness. NEURO: Patient is alert and oriented. no sensorimotor deficits. Nonfocal. Normal speech. PSYCH: No delusions. No auditory or visual hallucinations. Data Data Last Documented VS Vital Signs Date Time Temp Pulse Resp B/P (MAP) Pulse Ox O2 Delivery O2 Flow Rate FiO2 02/19/17 21:53 98.2 78 18 125/85 (98) 97 MDM Medical Decision Making Medical Screen Exam Complete: Yes Emergency Medical Condition: Yes Medical Record Reviewed: Yes Differential Diagnosis Differential diagnoses: Alcohol intoxication, substance abuse, electrolyte abnormality, malingering Narrative Course The patient now is sobered up in the ER. He denies any suicidal homicidal ideation. The patient appears sober. He ambulates with a steady gait. His speech is clear. The patient does not meet Gutierres act criteria at this time. He is sober and denies any suicidal homicidal ideation. The patient's Gutierres act will be lifted. This is alcohol intoxication, Gutierres act-lifted Diagnosis Primary Impression: EtOH dependence Qualified Codes: F10.20 - Alcohol dependence, uncomplicated Additional Impression: Gutierres act-lifted Referrals: [facility] Patient Instructions: General Instructions Additional Instructions: Rest. Increase fluids. Avoid alcohol. Avoid illegal substances. Follow-up with [facility] for detox. Do not operate a car or any heavy machinery under the influence of alcohol or drugs. Follow-up with a medical doctor this week. Return to the ER for emergencies Scripts No Active Prescriptions or Reported Meds Disposition: DISCHARGE HOME Condition: Stable Devon Luevano Feb 20, 2017 01:31
[2017-02-20 01:45] VITALS: BP 118/78
== END 2017-02-20 01:52 | disposition home or self-care (01) ==
LOC: NEDAMB 21:22 → NEPB 02-20 01:52
DX: F10.20 Alcohol dependence, uncomplicated (principal); I48.91 Unspecified atrial fibrillation; F41.9 Anxiety disorder, unspecified; B19.20 Unspecified viral hepatitis C without hepatic coma; I10 Essential (primary) hypertension; R00.2 Palpitations
CPT/HCPCS: 99283

== ENCOUNTER 2017-02-20 11:30 | Emergency (ER) | payer SELFPAY ==
[~2017-02-20] VITALS: Ht 182.9 cm; Wt 74.0 kg
[2017-02-20 11:53] VITALS: BP 119/64; PULSE 84; RESP 20; TEMP 98.3; O2SAT 98
[2017-02-20 11:56] VITALS: BP 119/84; PULSE 84; RESP 20; TEMP 98.3; O2SAT 98
[2017-02-20] MEDS ORDERED: SODIUM CHLOR 0.9% 1000 ML INJ 1,000 ML IV SCH (12:10)
--- NOTE | 2017-02-20 12:14 | PD ---
HPI Chief Complaint: Psychiatric Symptoms Time Seen by Provider: 12:09 Travel History International Travel<30 days: No Contact w/Intl Traveler<30days: No Traveled to known affect area: No History of Present Illness HPI 61-year-old male presents under Gutierres act initiated by the Police Department. According to his Gutierres act form the patient told the police that he wanted to shoot himself. The patient is a frequent visitor to this emergency department, typically for alcohol-related issues. Most recently he was seen here yesterday and discharged. He reports after discharge she "got enough vodka to get drunk. " He doesn't remember the events of this morning very clearly currently. He reports that he is depressed, primarily related to family issues. He reports that he told the police that he wanted to shoot himself to get their sympathy. He has no other complaints at this time. PFSH Past Medical History Atrial Fibrillation: Yes Blood Disorders: No Anxiety: Yes Depression: Yes Heart Rhythm Problems: No Cancer: No Cardiovascular Problems: Yes (palpitation) High Cholesterol: No Chest Pain: No Congestive Heart Failure: No Cerebrovascular Accident: No Diabetes: No Dialysis: No Diminished Hearing: No Endocrine: No Gastrointestinal Disorders: Yes (Colitis) GERD: No Genitourinary: No Hepatitis: Yes (HEP C) Hiatal Hernia: No Heparin Induced Thrombocytopen: No Hypertension: Yes Immune Disorder: No Implanted Vascular Access Dvce: No Kidney Stones: No Musculoskeletal: No Neurologic: No Psychiatric: No Reproductive: No Respiratory: No Immunizations Current: Yes Migraines: No Renal Failure: No Seizures: Yes Sickle Cell Disease: No Ulcer: No Past Surgical History Abdominal Surgery: No AICD: No Arteriovenous Shunt: No Cardiac Surgery: No Ear Surgery: No Endocrine Surgery: No Eye Surgery: No Genitourinary Surgery: No Gynecologic Surgery: Yes Insulin Pump: No Joint Replacement: No Neurologic Surgery: No Oral Surgery: Yes Pacemaker: No Thoracic Surgery: No Other Surgery: Yes (UNKNOWN BACK SURGERY) Social History Alcohol Use: Yes (DAILY, large quantities for many years. ) Tobacco Use: No Substance Use: Yes ( MUCH I CAN GET. STRAIGHT VODKA) Allergies-Medications (Allergen,Severity, Reaction): Coded Allergies: Penicillins (Verified Allergy, Unknown, 02/20/17) pt states he has had it before but not sure why its on his record and family members are allergic to penicillin Reported Meds & Prescriptions Reported Meds & Active Scripts Active No Active Prescriptions or Reported Medications Review of Systems Except as stated in HPI: all other systems reviewed are Neg Physical Exam Narrative GENERAL: Disheveled-appearing male who is tearful on initial examination. Mildly slurred speech. SKIN: Warm and dry. HEAD: Atraumatic. Normocephalic. EYES: Pupils equal and round. No scleral icterus. No injection or drainage. ENT: No nasal bleeding or discharge. Mucous membranes pink and moist. NECK: Trachea midline. No JVD. CARDIOVASCULAR: Regular rate and rhythm. No murmur appreciated. RESPIRATORY: No accessory muscle use. Clear to auscultation. Breath sounds equal bilaterally. GASTROINTESTINAL: Abdomen soft, non-tender, nondistended. Hepatic and splenic margins not palpable. MUSCULOSKELETAL: No obvious deformities. No clubbing. No cyanosis. No edema. NEUROLOGICAL: Awake and alert. No obvious cranial nerve deficits. Motor grossly within normal limits. Slurred speech. PSYCHIATRIC: Depressed, anxious, tearful. Data Data Last Documented VS Vital Signs Date Time Temp Pulse Resp B/P (MAP) Pulse Ox O2 Delivery O2 Flow Rate FiO2 02/20/17 11:56 84 20 02/20/17 11:56 98.3 119/84 (96) 98 Room Air Orders Orders Complete Blood Count With Diff (02/20/17 12:10) Basic Metabolic Panel (Bmp) (02/20/17 12:10) Magnesium (Mg) (02/20/17 12:10) Alcohol (Ethanol) (02/20/17 12:10) Drug Screen, Random Urine (02/20/17 12:10) Thiamine Inj (Thiamine Inj) (02/20/17 12:15) Alcohol Withdrawal Asmt-Ciwa ONCE (02/20/17 12:10) Flumazenil Inj (Romazicon Inj) (02/20/17 12:15) Lorazepam (Ativan) (02/20/17 12:15) Lorazepam Inj (Ativan Inj) (02/20/17 12:15) Lorazepam (Ativan) (02/20/17 12:15) Lorazepam Inj (Ativan Inj) (02/20/17 12:15) Lorazepam Inj (Ativan Inj) (02/20/17 12:15) Lorazepam Inj (Ativan Inj) (02/20/17 12:15) Sodium Chlor 0.9% 1000 Ml Inj (Ns 1000 M (02/20/17 12:10) Psych Screen (02/20/17 12:14) Potassium Chloride (Kcl) (02/20/17 13:45) Labs Laboratory Tests Test 02/20/17 12:25 White Blood Count 8.0 TH/MM3 Red Blood Count 4.12 MIL/MM3 Hemoglobin 13.8 GM/DL Hematocrit 40.1 % Mean Corpuscular Volume 97.5 FL Mean Corpuscular Hemoglobin 33.5 PG Mean Corpuscular Hemoglobin Concent 34.4 % Red Cell Distribution Width 13.5 % Platelet Count 119 TH/MM3 Mean Platelet Volume 6.1 FL Neutrophils (%) (Auto) 69.0 % Lymphocytes (%) (Auto) 24.3 % Monocytes (%) (Auto) 6.1 % Eosinophils (%) (Auto) 0.2 % Basophils (%) (Auto) 0.4 % Neutrophils # (Auto) 5.5 TH/MM3 Lymphocytes # (Auto) 2.0 TH/MM3 Monocytes # (Auto) 0.5 TH/MM3 Eosinophils # (Auto) 0.0 TH/MM3 Basophils # (Auto) 0.0 TH/MM3 CBC Comment DIFF FINAL Differential Comment Blood Urea Nitrogen 8 MG/DL Creatinine 0.77 MG/DL Random Glucose 93 MG/DL Calcium Level 8.4 MG/DL Magnesium Level 1.6 MG/DL Sodium Level 143 MEQ/L Potassium Level 3.2 MEQ/L Chloride Level 107 MEQ/L Carbon Dioxide Level 25.7 MEQ/L Anion Gap 10 MEQ/L Estimat Glomerular Filtration Rate 103 ML/MIN Urine Opiates Screen NEG Urine Barbiturates Screen NEG Urine Amphetamines Screen NEG Urine Benzodiazepines Screen POS Urine Cocaine Screen NEG Urine Cannabinoids Screen NEG Ethyl Alcohol Level 336 MG/DL [facility] Medical Decision Making Medical Screen Exam Complete: Yes Emergency Medical Condition: Yes Medical Record Reviewed: Yes Differential Diagnosis Alcohol intoxication, substance induced mood disorder, malingering, homelessness , major depressive disorder Narrative Course 61-year-old male alcoholic presents under Gutierres act for suicidal statements made to the police. The patient will be given IV thiamine and normal saline. We will recheck his electrolytes, alcohol level. He will be started on CIWA precautions given his high risk of alcohol withdrawal seizures. Mental health screening discussed with the patient. Psychiatric screen ordered. Lab work notable for a 3.2 potassium, he will be given oral potassium chloride 40 mEq. Positive for benzodiazepines. Alcohol level 336. Medically cleared for psychiatric disposition. Diagnosis Primary Impression: Alcohol dependence with acute alcoholic intoxication Qualified Codes: F10.220 - Alcohol dependence with intoxication, uncomplicated Scripts No Active Prescriptions or Reported Meds Jed Pires Feb 20, 2017 12:14
[2017-02-20] MEDS ORDERED: FLUMAZENIL 0.5 MG/5 ML VIAL IV PUSH PRN (12:15)
[2017-02-20] MEDS ORDERED: THIAMINE INJ 100 MG in SODIUM CHLORIDE 0.9% INJ 100 ML IV ONE (12:15)
[2017-02-20] MEDS ORDERED: LORazepam 2 MG TAB PO PRN (12:15)
[2017-02-20] MEDS ORDERED: LORazepam 1 MG TAB PO PRN (12:15)
[2017-02-20] MEDS ORDERED: LORazepam 2 MG/ML VIAL IV PUSH PRN ×4 (12:15)
[2017-02-20 12:51] LABS: AUTOMATED NEUTROPHIL # 5.5 TH/MM3 (1.8-7.7); BASOPHIL % 0.4 % (0.0-2.0); EOSINOPHIL % 0.2 % (0.0-4.0); HEMATOCRIT 40.1 % (39.0-51.0); HEMO FLAGS DIFF FINAL; LYMPH % 24.3 % (9.0-44.0); MEAN CELL VOLUME 97.5 FL (80.0-100.0); MEAN CORPUSCULAR HEMOGLOBIN 33.5 PG (27.0-34.0); MEAN CORPUSCULAR HGB CONC 34.4 % (32.0-36.0); MONO % 6.1 % (0.0-8.0); PLATELET COUNT 119 TH/MM3 (150-450); RED BLOOD COUNT 4.12 MIL/MM3 (4.50-5.90); RED CELL DISTRIBUTION WIDTH 13.5 % (11.6-17.2)
[2017-02-20 13:16] LABS: BICARBONATE 25.7 MEQ/L (21.0-32.0); MAGNESIUM 1.6 MG/DL (1.5-2.5); POTASSIUM 3.2 MEQ/L (3.5-5.1)
[2017-02-20] MEDS ORDERED: POTASSIUM CHLORIDE 20 MEQ CONTROLLED RELEASE TAB PO ONE (13:45)
[2017-02-20 14:26] VITALS: BP 129/71; PULSE 66; RESP 17; O2SAT 99
--- NOTE | 2017-02-20 15:12 | PD ---
History of Present Illness Chief Complaint: Psychiatric Symptoms Time Seen by Provider: 15:00 Travel History International Travel<30 Days: No Contact w/Intl Traveler<30days: No Known affected area: No Legal Status Legal Status: [employer] History of Present Illness: 61-year-old male very well known to this physician from over 2 dozen emergency department visits this year. Patient has obvious problem with chronic alcohol abuse and continues to abuse alcohol despite episodes of detox and rehabilitation mixed in. Currently, the patient does not voice any suicidal or homicidal ideation, plan or intent. This physician and reviewed the record in which he threatened to shoot himself with a gun but patient does not own a gun. Patient however remains at risk for self-harm due to his alcoholism and his unwillingness to take responsibility for treatment, Alcoholics Anonymous, etc. The patient's ongoing risk for self-harm and in fact ruining his health is both unavoidable and unpredictable. However, it is related to his alcoholism and the facility license for treatment of alcoholism remains [facility]. The patient was asked if he wanted to go there any indicated he did. PFSH Past Medical History Atrial Fibrillation: Yes Blood Disorders: No Anxiety: Yes Depression: Yes Heart Rhythm Problems: No Cancer: No Cardiovascular Problems: Yes (palpitation) High Cholesterol: No Chest Pain: No Congestive Heart Failure: No Cerebrovascular Accident: No Diabetes: No Dialysis: No Diminished Hearing: No Endocrine: No Gastrointestinal Disorders: Yes (Colitis) GERD: No Genitourinary: No Hepatitis: Yes (HEP C) Hiatal Hernia: No Heparin Induced Thrombocytopen: No Hypertension: Yes Immune Disorder: No Implanted Vascular Access Dvce: No Kidney Stones: No Musculoskeletal: No Neurologic: No Psychiatric: No Reproductive: No Respiratory: No Immunizations Current: Yes Migraines: No Renal Failure: No Seizures: Yes Sickle Cell Disease: No Ulcer: No Past Surgical History Abdominal Surgery: No AICD: No Arteriovenous Shunt: No Cardiac Surgery: No Ear Surgery: No Endocrine Surgery: No Eye Surgery: No Genitourinary Surgery: No Gynecologic Surgery: Yes Insulin Pump: No Joint Replacement: No Neurologic Surgery: No Oral Surgery: Yes Pacemaker: No Thoracic Surgery: No Other Surgery: Yes (UNKNOWN BACK SURGERY) Psychiatric History Psychiatric History Hx Psychiatric Treatment: HX OF DEPRESSION History of Inpatient Treatment: Yes Guns or firearms in home: No Social History Hx Alcohol Use: Yes (DAILY, large quantities for many years. ) Hx Tobacco Use: No Hx Substance Use: Yes ( MUCH I CAN GET. STRAIGHT VODKA) Substance Use Type: Alcohol Other Substances Used: last alcohol 0200 and last heroin 3 days ago Hx of Substance Use Treatment: Yes Allergies-Medications (Allergen,Severity, Reaction): Coded Allergies: Penicillins (Verified Allergy, Unknown, 02/20/17) pt states he has had it before but not sure why its on his record and family members are allergic to penicillin Reported Meds & Prescriptions Reported Meds & Active Scripts Active No Active Prescriptions or Reported Medications Review of Systems Except as stated in HPI: all other systems reviewed are Neg Exam Alert: Yes [place]: Person, Place, Date, Situation Mood: Calm Affect: Appropriate Speech: Clear Eye Contact: Normal Memory Intact: Immediate, Recent, Remote Insight/Judgement 1 adequate MDM Medical Decision Making Medical Record Reviewed: Yes Assessment/Plan Patient interviewed at bedside, chart reviewed and case discussed with nurse. Patient's main problem remains alcoholism and his depression comes about as a result of that. He once again is in need of detox and rehabilitation and he is stating that he will go to [facility] voluntarily. This physician is lifting his Gutierres act and recommends transport of some kind to [facility] for further evaluation and treatment. Orders Orders Complete Blood Count With Diff (02/20/17 12:10) Basic Metabolic Panel (Bmp) (02/20/17 12:10) Magnesium (Mg) (02/20/17 12:10) Alcohol (Ethanol) (02/20/17 12:10) Drug Screen, Random Urine (02/20/17 12:10) Thiamine Inj (Thiamine Inj) (02/20/17 12:15) Alcohol Withdrawal Asmt-Ciwa ONCE (02/20/17 12:10) Flumazenil Inj (Romazicon Inj) (02/20/17 12:15) Lorazepam (Ativan) (02/20/17 12:15) Lorazepam Inj (Ativan Inj) (02/20/17 12:15) Lorazepam (Ativan) (02/20/17 12:15) Lorazepam Inj (Ativan Inj) (02/20/17 12:15) Lorazepam Inj (Ativan Inj) (02/20/17 12:15) Lorazepam Inj (Ativan Inj) (02/20/17 12:15) Sodium Chlor 0.9% 1000 Ml Inj (Ns 1000 M (02/20/17 12:10) Psych Screen (02/20/17 12:14) Potassium Chloride (Kcl) (02/20/17 13:45) Results Vital Signs Date Time Temp Pulse Resp B/P (MAP) Pulse Ox O2 Delivery O2 Flow Rate FiO2 02/20/17 14:26 66 17 129/71 (90) 99 Room Air 02/20/17 11:56 84 20 02/20/17 11:56 98.3 84 20 119/84 (96) 98 Room Air 02/20/17 11:53 98.3 84 20 119/64 (82) 98 Laboratory Tests Test 02/20/17 12:25 White Blood Count 8.0 Red Blood Count 4.12 Hemoglobin 13.8 Hematocrit 40.1 Mean Corpuscular Volume 97.5 Mean Corpuscular Hemoglobin 33.5 Mean Corpuscular Hemoglobin Concent 34.4 Red Cell Distribution Width 13.5 Platelet Count 119 Mean Platelet Volume 6.1 Neutrophils (%) (Auto) 69.0 Lymphocytes (%) (Auto) 24.3 Monocytes (%) (Auto) 6.1 Eosinophils (%) (Auto) 0.2 Basophils (%) (Auto) 0.4 Neutrophils # (Auto) 5.5 Lymphocytes # (Auto) 2.0 Monocytes # (Auto) 0.5 Eosinophils # (Auto) 0.0 Basophils # (Auto) 0.0 CBC Comment DIFF FINAL Differential Comment Blood Urea Nitrogen 8 Creatinine 0.77 Random Glucose 93 Calcium Level 8.4 Magnesium Level 1.6 Sodium Level 143 Potassium Level 3.2 Chloride Level 107 Carbon Dioxide Level 25.7 Anion Gap 10 Estimat Glomerular Filtration Rate 103 Urine Opiates Screen NEG Urine Barbiturates Screen NEG Urine Amphetamines Screen NEG Urine Benzodiazepines Screen POS Urine Cocaine Screen NEG Urine Cannabinoids Screen NEG Ethyl Alcohol Level 336 Diagnosis Primary Impression: Alcohol dependence with acute alcoholic intoxication Additional Impression: Alcohol abuse Prescriptions No Active Prescriptions or Reported Meds Problem Qualifiers Primary Impression: Alcohol dependence with acute alcoholic intoxication Qualified Codes: F10.220 - Alcohol dependence with intoxication, uncomplicated Davie Oconnell MD Feb 20, 2017 15:12
[2017-02-20 18:08] VITALS: BP 125/69; PULSE 70; RESP 16; O2SAT 96
== END 2017-02-20 18:57 | disposition home or self-care (01) ==
LOC: NEPD 11:30 → NEPB 18:57
DX: F10.220 Alcohol dependence with intoxication, uncomplicated (principal); B19.20 Unspecified viral hepatitis C without hepatic coma; I48.91 Unspecified atrial fibrillation; Y90.8 Blood alcohol level of 240 mg/100 ml or more
CPT/HCPCS: 80048; 80307; 83735; 85025; 96365; 96375; 99284; J2060; J3411; J7030

== ENCOUNTER 2017-02-22 21:16 | Emergency (ER) | payer OTHER ==
[~2017-02-22] VITALS: Ht 188 cm; Wt 80.0 kg
[2017-02-22 21:26] VITALS: BP 150/76; PULSE 80; RESP 16; TEMP 98.7; O2SAT 96
[2017-02-22 21:49] LABS: BASOPHIL % 0.4 % (0.0-2.0); EOSINOPHIL # 0.1 TH/MM3 (0-0.4); HEMATOCRIT 41.3 % (39.0-51.0); HEMO FLAGS DIFF FINAL; LYMPH % 20.1 % (9.0-44.0); LYMPHOCYTE # 2.2 TH/MM3 (1.0-4.8); MEAN CELL VOLUME 98.7 FL (80.0-100.0); MEAN CORPUSCULAR HEMOGLOBIN 33.1 PG (27.0-34.0); MEAN CORPUSCULAR HGB CONC 33.5 % (32.0-36.0); MONO % 6.5 % (0.0-8.0); PLATELET COUNT 114 TH/MM3 (150-450); RED BLOOD COUNT 4.18 MIL/MM3 (4.50-5.90); RED CELL DISTRIBUTION WIDTH 13.6 % (11.6-17.2); WHITE BLOOD COUNT 11.2 TH/MM3 (4.0-11.0)
[2017-02-22 22:01] LABS: POTASSIUM 3.2 MEQ/L (3.5-5.1)
[2017-02-22 22:06] LABS: BICARBONATE 24.2 MEQ/L (21.0-32.0)
[2017-02-22] MEDS ORDERED: LORazepam 2 MG/ML VIAL IV PUSH PRN ×4 (22:15)
[2017-02-22] MEDS ORDERED: LORazepam 2 MG TAB PO PRN (22:15)
[2017-02-22] MEDS ORDERED: ONDANSETRON ODT 4 MG TAB PO PRN (22:15)
[2017-02-22] MEDS ORDERED: FLUMAZENIL 0.5 MG/5 ML VIAL IV PUSH PRN (22:15)
[2017-02-22] MEDS ORDERED: LORazepam 1 MG TAB PO PRN (22:15)
--- NOTE | 2017-02-22 22:15 | PD ---
HPI Chief Complaint: Psychiatric Symptoms Time Seen by Provider: 22:10 Travel History International Travel<30 days: No Contact w/Intl Traveler<30days: No Traveled to known affect area: No History of Present Illness HPI Patient comes in under Gutierres act by police reportedly making statements of wanting to kill himself and his per Gutierres act. Patient denies any homicidal or suicidal ideations. Patient states he just wants to go home. Patient denies any medical complaints or concerns at this time. Denies any chest pain, shortness of breath, fevers, abdominal pain pain, headaches, nausea , or vomiting. PFSH Past Medical History Atrial Fibrillation: Yes Blood Disorders: No Anxiety: Yes Depression: Yes Heart Rhythm Problems: No Cancer: No Cardiovascular Problems: Yes (palpitation) High Cholesterol: No Chest Pain: No Congestive Heart Failure: No Cerebrovascular Accident: No Diabetes: No Dialysis: No Diminished Hearing: No Endocrine: No Gastrointestinal Disorders: Yes (Colitis) GERD: No Genitourinary: No Hepatitis: Yes (HEP C) Hiatal Hernia: No Heparin Induced Thrombocytopen: No Hypertension: Yes Immune Disorder: No Implanted Vascular Access Dvce: No Kidney Stones: No Musculoskeletal: No Neurologic: No Psychiatric: No Reproductive: No Respiratory: No Immunizations Current: Yes Migraines: No Renal Failure: No Seizures: Yes Sickle Cell Disease: No Ulcer: No Past Surgical History Abdominal Surgery: No AICD: No Arteriovenous Shunt: No Cardiac Surgery: No Ear Surgery: No Endocrine Surgery: No Eye Surgery: No Genitourinary Surgery: No Gynecologic Surgery: Yes Insulin Pump: No Joint Replacement: No Neurologic Surgery: No Oral Surgery: Yes Pacemaker: No Thoracic Surgery: No Other Surgery: Yes (UNKNOWN BACK SURGERY) Social History Alcohol Use: Yes (DAILY, large quantities for many years. ) Tobacco Use: No Substance Use: Yes ( MUCH I CAN GET. STRAIGHT VODKA) Allergies-Medications (Allergen,Severity, Reaction): Coded Allergies: Penicillins (Verified Allergy, Unknown, 02/20/17) pt states he has had it before but not sure why its on his record and family members are allergic to penicillin Reported Meds & Prescriptions Reported Meds & Active Scripts Active No Active Prescriptions or Reported Medications Review of Systems Except as stated in HPI: all other systems reviewed are Neg Physical Exam Narrative GENERAL: Well-developed, well nourished, in no acute distress, and non-ill appearing. Disheveled and smelling of urine. Does not appear intoxicated at this time as he is normally in the emergency department. SKIN: Focused skin assessment warm and dry. HEAD: Atraumatic. Normocephalic. EYES: Pupils equal and round. EOMI. No scleral icterus. No injection or drainage. ENT: No nasal bleeding or discharge. Mucous membranes pink and moist. NECK: Trachea midline. Supple. No nuclear rigidity. CARDIOVASCULAR: Regular rate and rhythm. No murmur appreciated. RESPIRATORY: No accessory muscle use. No respiratory distress. Clear to auscultation. Breath sounds equal bilaterally. MUSCULOSKELETAL: No obvious deformities. No clubbing. No cyanosis. No edema. Full range of motion. NEUROLOGICAL: Awake and alert. No obvious cranial nerve deficits. Motor grossly within normal limits. Normal speech. Data Data Last Documented VS Vital Signs Date Time Temp Pulse Resp B/P (MAP) Pulse Ox O2 Delivery O2 Flow Rate FiO2 02/22/17 21:26 98.7 80 16 150/76 (100) 96 Orders Orders Complete Blood Count With Diff (02/22/17 21:30) Basic Metabolic Panel (Bmp) (02/22/17 21:30) Urinalysis - C+S If Indicated (02/22/17 21:30) Alcohol (Ethanol) (02/22/17 21:30) Psych Screen (02/22/17 21:30) Potassium Chloride (Kcl) (02/23/17 09:00) Alcohol Withdrawal Asmt-Ciwa ONCE (02/22/17 22:15) Ondansetron Odt (Zofran Odt) (02/22/17 22:15) Flumazenil Inj (Romazicon Inj) (02/22/17 22:15) Lorazepam (Ativan) (02/22/17 22:15) Lorazepam Inj (Ativan Inj) (02/22/17 22:15) Lorazepam (Ativan) (02/22/17 22:15) Lorazepam Inj (Ativan Inj) (02/22/17 22:15) Lorazepam Inj (Ativan Inj) (02/22/17 22:15) Lorazepam Inj (Ativan Inj) (02/22/17 22:15) Labs Laboratory Tests Test 02/22/17 21:25 White Blood Count 11.2 TH/MM3 Red Blood Count 4.18 MIL/MM3 Hemoglobin 13.8 GM/DL Hematocrit 41.3 % Mean Corpuscular Volume 98.7 FL Mean Corpuscular Hemoglobin 33.1 PG Mean Corpuscular Hemoglobin Concent 33.5 % Red Cell Distribution Width 13.6 % Platelet Count 114 TH/MM3 Mean Platelet Volume 6.6 FL Neutrophils (%) (Auto) 72.0 % Lymphocytes (%) (Auto) 20.1 % Monocytes (%) (Auto) 6.5 % Eosinophils (%) (Auto) 1.0 % Basophils (%) (Auto) 0.4 % Neutrophils # (Auto) 8.0 TH/MM3 Lymphocytes # (Auto) 2.2 TH/MM3 Monocytes # (Auto) 0.7 TH/MM3 Eosinophils # (Auto) 0.1 TH/MM3 Basophils # (Auto) 0.0 TH/MM3 CBC Comment DIFF FINAL Differential Comment Blood Urea Nitrogen 3 MG/DL Creatinine 0.83 MG/DL Random Glucose 176 MG/DL Calcium Level 8.2 MG/DL Sodium Level 140 MEQ/L Potassium Level 3.2 MEQ/L Chloride Level 107 MEQ/L Carbon Dioxide Level 24.2 MEQ/L Anion Gap 9 MEQ/L Estimat Glomerular Filtration Rate 95 ML/MIN Ethyl Alcohol Level 458 MG/DL MDM Medical Decision Making Medical Screen Exam Complete: Yes Emergency Medical Condition: Yes Differential Diagnosis Homicidal, suicidal, likely abnormality, alcohol abuse, substance-induced mood disorder, other Narrative Course Patient was seen and examined. Labs were obtained and reviewed with the exception of urine has not been collected yet. Suspect slightly elevated white blood cell count is stress-induced. Potassium was replaced orally. Patient placed on CIWA protocol secondary to history of alcohol abuse. Patient medically cleared for further treatment and evaluation by psych. Final disposition per psych. Diagnosis Primary Impression: Hypokalemia Additional Impressions: Medical clearance for psychiatric admission Alcohol abuse with intoxication Scripts No Active Prescriptions or Reported Meds Condition: Stable Hua Zurita Feb 22, 2017 22:15
[2017-02-23] MEDS ORDERED: POTASSIUM CHLORIDE 20 MEQ CONTROLLED RELEASE TAB PO SCH (09:00)
--- NOTE | 2017-02-23 11:39 | PD ---
Physical Exam Date Seen by Provider: Feb 23, 2017 Time Seen by Provider: 11:35 Narrative This is a 58-year-old male who is well-known to this emergency department, who is brought under last night under Gutierres act after he was found intoxicated. The patient had a blood alcohol level 456. The patient is appropriately sober after being here all night. He is wishing to be discharged. He is no longer a threat to himself. He is not suicidal or homicidal. The Gutierres act will be lifted by this physician. He'll be discharged and told to avoid alcohol. Data Data Last Documented VS Vital Signs Date Time Temp Pulse Resp B/P (MAP) Pulse Ox O2 Delivery O2 Flow Rate FiO2 02/22/17 21:26 98.7 80 16 150/76 (100) 96 Orders Orders Complete Blood Count With Diff (02/22/17 21:30) Basic Metabolic Panel (Bmp) (02/22/17 21:30) Urinalysis - C+S If Indicated (02/22/17 21:30) Alcohol (Ethanol) (02/22/17 21:30) Psych Screen (02/22/17 21:30) Potassium Chloride (Kcl) (02/23/17 09:00) Alcohol Withdrawal Asmt-Ciwa ONCE (02/22/17 22:15) Ondansetron Odt (Zofran Odt) (02/22/17 22:15) Flumazenil Inj (Romazicon Inj) (02/22/17 22:15) Lorazepam (Ativan) (02/22/17 22:15) Lorazepam Inj (Ativan Inj) (02/22/17 22:15) Lorazepam (Ativan) (02/22/17 22:15) Lorazepam Inj (Ativan Inj) (02/22/17 22:15) Lorazepam Inj (Ativan Inj) (02/22/17 22:15) Lorazepam Inj (Ativan Inj) (02/22/17 22:15) Labs Laboratory Tests Test 02/22/17 21:25 White Blood Count 11.2 TH/MM3 Red Blood Count 4.18 MIL/MM3 Hemoglobin 13.8 GM/DL Hematocrit 41.3 % Mean Corpuscular Volume 98.7 FL Mean Corpuscular Hemoglobin 33.1 PG Mean Corpuscular Hemoglobin Concent 33.5 % Red Cell Distribution Width 13.6 % Platelet Count 114 TH/MM3 Mean Platelet Volume 6.6 FL Neutrophils (%) (Auto) 72.0 % Lymphocytes (%) (Auto) 20.1 % Monocytes (%) (Auto) 6.5 % Eosinophils (%) (Auto) 1.0 % Basophils (%) (Auto) 0.4 % Neutrophils # (Auto) 8.0 TH/MM3 Lymphocytes # (Auto) 2.2 TH/MM3 Monocytes # (Auto) 0.7 TH/MM3 Eosinophils # (Auto) 0.1 TH/MM3 Basophils # (Auto) 0.0 TH/MM3 CBC Comment DIFF FINAL Differential Comment Blood Urea Nitrogen 3 MG/DL Creatinine 0.83 MG/DL Random Glucose 176 MG/DL Calcium Level 8.2 MG/DL Sodium Level 140 MEQ/L Potassium Level 3.2 MEQ/L Chloride Level 107 MEQ/L Carbon Dioxide Level 24.2 MEQ/L Anion Gap 9 MEQ/L Estimat Glomerular Filtration Rate 95 ML/MIN Ethyl Alcohol Level 458 MG/DL [facility] Medical Record Reviewed: Yes Supervised Visit with DIANNE: No Narrative Course 89-year-old male brought in under Gutierres act last evening. The patient had a blood alcohol level of 456. The patient is appropriate sober after being here all night. He is wishing to leave. He'll be discharged and have his Gutierres act lifted by this physician. Diagnosis Primary Impression: Hypokalemia Additional Impressions: Alcohol abuse with intoxication Medical clearance for psychiatric admission Gutierres act lifted. Additional Instruction: Avoid drinking alcohol. Scripts No Active Prescriptions or Reported Meds Disposition: 01 DISCHARGE HOME Condition: Stable Jorge L Hinds MD Feb 23, 2017 11:39
== END 2017-02-23 14:15 | disposition home or self-care (01) ==
LOC: NEDAMB 21:16
DX: E87.6 Hypokalemia (principal); F10.129 Alcohol abuse with intoxication, unspecified; Y90.8 Blood alcohol level of 240 mg/100 ml or more
CPT/HCPCS: 80048; 80307; 85025; 99284

== ENCOUNTER 2017-02-25 20:39 | Emergency (ER) | payer OTHER ==
[~2017-02-25] VITALS: Ht 180.3 cm; Wt 75.0 kg
[2017-02-25 20:45] VITALS: BP 137/78; PULSE 85; RESP 16; TEMP 98; O2SAT 99
[2017-02-26 01:24] LABS: AUTOMATED NEUTROPHIL # 3.2 TH/MM3 (1.8-7.7); BASOPHIL % 0.5 % (0.0-2.0); EOSINOPHIL # 0.2 TH/MM3 (0-0.4); EOSINOPHIL % 2.6 % (0.0-4.0); HEMATOCRIT 40.8 % (39.0-51.0); LYMPH % 44.8 % (9.0-44.0); LYMPHOCYTE # 3.4 TH/MM3 (1.0-4.8); MEAN CELL VOLUME 97.2 FL (80.0-100.0); MEAN CORPUSCULAR HEMOGLOBIN 32.8 PG (27.0-34.0); MEAN CORPUSCULAR HGB CONC 33.8 % (32.0-36.0); MONO % 10.3 % (0.0-8.0); NEUT % 41.8 % (16.0-70.0); PLATELET COUNT 74 TH/MM3 (150-450); RED BLOOD COUNT 4.19 MIL/MM3 (4.50-5.90); RED CELL DISTRIBUTION WIDTH 14.1 % (11.6-17.2); WHITE BLOOD COUNT 7.5 TH/MM3 (4.0-11.0)
[2017-02-26 01:34] LABS: HEMO FLAGS AUTO DIFF
[2017-02-26 01:39] LABS: ANION GAP 12 MEQ/L (5-15); AST (GOT) 38 U/L (15-37); BICARBONATE 22.6 MEQ/L (21.0-32.0); BLOOD UREA NITROGEN 2 MG/DL (7-18); CHLORIDE 105 MEQ/L (98-107); GLOMERULAR FILTRATION RATE 103 ML/MIN (>89); POTASSIUM 3.5 MEQ/L (3.5-5.1); SODIUM (NA) 140 MEQ/L (136-145)
[2017-02-26 01:43] LABS: ALKALINE PHOSPHATASE 113 U/L (45-117); ALT (GPT) 35 U/L (12-78)
[2017-02-26 02:04] LABS: BANDS 2 % (0-6); EOSINOPHILS 1 % (0-4); MYELOCYTES 1 % (0-0); NEUTROPHIL # MANUAL DIFF 3.8 TH/MM3 (1.8-7.7); PLATELET ESTIMATE SMEAR LOW (NORMAL); PLATELET MORPHOLOGY NORMAL (NORMAL); POLYS (SEG NEUTROPHILS) 47 % (16-70); SCAN/DIFF FINAL DIFF MANUAL; WBC DIFF SAMPLE 100
--- NOTE | 2017-02-26 02:34 | PD ---
HPI Chief Complaint: Psychiatric Symptoms Time Seen by Provider: 00:56 Travel History International Travel<30 days: No Contact w/Intl Traveler<30days: No Traveled to known affect area: No History of Present Illness HPI Patient is a 61-year-old male that presented to the emergency Department under a Gutierres act due to suicidal ideations. Patient reported that he is "having trouble with the alcohol". He states that even when he goes to [facility] he goes right back to drinking. He has no physical complaints at this time. PFSH Past Medical History Atrial Fibrillation: Yes Blood Disorders: No Anxiety: Yes Depression: Yes Heart Rhythm Problems: No Cancer: No Cardiovascular Problems: Yes (palpitation) High Cholesterol: No Chest Pain: No Congestive Heart Failure: No Cerebrovascular Accident: No Diabetes: No Dialysis: No Diminished Hearing: No Endocrine: No Gastrointestinal Disorders: Yes (Colitis) GERD: No Genitourinary: No Hepatitis: Yes (HEP C) Hiatal Hernia: No Heparin Induced Thrombocytopen: No Hypertension: Yes Immune Disorder: No Implanted Vascular Access Dvce: No Kidney Stones: No Musculoskeletal: No Neurologic: No Psychiatric: No Reproductive: No Respiratory: No Immunizations Current: Yes Migraines: No Renal Failure: No Seizures: Yes Sickle Cell Disease: No Ulcer: No Past Surgical History Abdominal Surgery: No AICD: No Arteriovenous Shunt: No Cardiac Surgery: No Ear Surgery: No Endocrine Surgery: No Eye Surgery: No Genitourinary Surgery: No Gynecologic Surgery: Yes Insulin Pump: No Joint Replacement: No Neurologic Surgery: No Oral Surgery: Yes Pacemaker: No Thoracic Surgery: No Other Surgery: Yes (UNKNOWN BACK SURGERY) Social History Alcohol Use: Yes (DAILY, large quantities for many years. ) Tobacco Use: No Substance Use: Yes (ALCOHOLISM ) Allergies-Medications (Allergen,Severity, Reaction): Coded Allergies: Penicillins (Verified Allergy, Unknown, 02/25/17) pt states he has had it before but not sure why its on his record and family members are allergic to penicillin Reported Meds & Prescriptions Reported Meds & Active Scripts Active No Active Prescriptions or Reported Medications Review of Systems ROS Limitations: Intoxication Except as stated in HPI: all other systems reviewed are Neg Psychiatric: Positive: Depression, Suicidal Ideations, Substance Abuse Physical Exam Narrative GENERAL: Disheveled, alert male. Resting comfortably in no acute distress. SKIN: Warm and dry. HEAD: Atraumatic. Normocephalic. EYES: Pupils equal and round. No scleral icterus. No injection or drainage. ENT: No nasal bleeding or discharge. Mucous membranes pink and moist. NECK: Trachea midline. No JVD. CARDIOVASCULAR: Regular rate and rhythm. RESPIRATORY: No accessory muscle use. Clear to auscultation. Breath sounds equal bilaterally. GASTROINTESTINAL: Abdomen soft, non-tender, nondistended. Hepatic and splenic margins not palpable. MUSCULOSKELETAL: Extremities without clubbing, cyanosis, or edema. No obvious deformities. NEUROLOGICAL: Awake and alert. No obvious cranial nerve deficits. Motor grossly within normal limits. Five out of 5 muscle strength in the arms and legs. Normal speech. PSYCHIATRIC: Depressed mood and affect; insight and judgment normal. Data Data Last Documented VS Vital Signs Date Time Temp Pulse Resp B/P (MAP) Pulse Ox O2 Delivery O2 Flow Rate FiO2 02/25/17 20:45 98.0 85 16 137/78 (97) 99 Orders Orders Complete Blood Count With Diff (02/25/17 21:45) Comprehensive Metabolic Panel (02/25/17 21:45) Psych Screen (02/25/17 21:45) Drug Screen, Random Urine (02/25/17 21:45) Alcohol (Ethanol) (02/26/17 00:53) Labs Laboratory Tests Test 02/25/17 23:15 02/26/17 00:53 Urine Opiates Screen NEG Urine Barbiturates Screen NEG Urine Amphetamines Screen NEG Urine Benzodiazepines Screen POS Urine Cocaine Screen NEG Urine Cannabinoids Screen NEG White Blood Count 7.5 TH/MM3 Red Blood Count 4.19 MIL/MM3 Hemoglobin 13.8 GM/DL Hematocrit 40.8 % Mean Corpuscular Volume 97.2 FL Mean Corpuscular Hemoglobin 32.8 PG Mean Corpuscular Hemoglobin Concent 33.8 % Red Cell Distribution Width 14.1 % Platelet Count 74 TH/MM3 Mean Platelet Volume 6.8 FL Neutrophils (%) (Auto) 41.8 % Lymphocytes (%) (Auto) 44.8 % Monocytes (%) (Auto) 10.3 % Eosinophils (%) (Auto) 2.6 % Basophils (%) (Auto) 0.5 % Neutrophils # (Auto) 3.2 TH/MM3 Lymphocytes # (Auto) 3.4 TH/MM3 Monocytes # (Auto) 0.8 TH/MM3 Eosinophils # (Auto) 0.2 TH/MM3 Basophils # (Auto) 0.0 TH/MM3 CBC Comment AUTO DIFF Differential Total Cells Counted 100 Neutrophils % (Manual) 47 % Band Neutrophils % 2 % Lymphocytes % 42 % Monocytes % 7 % Eosinophils % 1 % Neutrophils # (Manual) 3.8 TH/MM3 Myelocytes 1 % Differential Comment FINAL DIFF MANUAL Platelet Estimate LOW Platelet Morphology Comment NORMAL Red Cell Morphology Comment NORMAL Blood Urea Nitrogen 2 MG/DL Creatinine 0.77 MG/DL Random Glucose 95 MG/DL Total Protein 8.0 GM/DL Albumin 3.6 GM/DL Calcium Level 8.4 MG/DL Alkaline Phosphatase 113 U/L Aspartate Amino Transf (AST/SGOT) 38 U/L Alanine Aminotransferase (ALT/SGPT) 35 U/L Total Bilirubin 1.0 MG/DL Sodium Level 140 MEQ/L Potassium Level 3.5 MEQ/L Chloride Level 105 MEQ/L Carbon Dioxide Level 22.6 MEQ/L Anion Gap 12 MEQ/L Estimat Glomerular Filtration Rate 103 ML/MIN Ethyl Alcohol Level 323 MG/DL MDM Medical Decision Making Medical Screen Exam Complete: Yes Emergency Medical Condition: Yes Medical Record Reviewed: Yes Interpretation(s) Laboratory Tests Test 02/25/17 23:15 02/26/17 00:53 Urine Opiates Screen NEG Urine Barbiturates Screen NEG Urine Amphetamines Screen NEG Urine Benzodiazepines Screen POS Urine Cocaine Screen NEG Urine Cannabinoids Screen NEG White Blood Count 7.5 TH/MM3 Red Blood Count 4.19 MIL/MM3 Hemoglobin 13.8 GM/DL Hematocrit 40.8 % Mean Corpuscular Volume 97.2 FL Mean Corpuscular Hemoglobin 32.8 PG Mean Corpuscular Hemoglobin Concent 33.8 % Red Cell Distribution Width 14.1 % Platelet Count 74 TH/MM3 Mean Platelet Volume 6.8 FL Neutrophils (%) (Auto) 41.8 % Lymphocytes (%) (Auto) 44.8 % Monocytes (%) (Auto) 10.3 % Eosinophils (%) (Auto) 2.6 % Basophils (%) (Auto) 0.5 % Neutrophils # (Auto) 3.2 TH/MM3 Lymphocytes # (Auto) 3.4 TH/MM3 Monocytes # (Auto) 0.8 TH/MM3 Eosinophils # (Auto) 0.2 TH/MM3 Basophils # (Auto) 0.0 TH/MM3 CBC Comment AUTO DIFF Differential Total Cells Counted 100 Neutrophils % (Manual) 47 % Band Neutrophils % 2 % Lymphocytes % 42 % Monocytes % 7 % Eosinophils % 1 % Neutrophils # (Manual) 3.8 TH/MM3 Myelocytes 1 % Differential Comment FINAL DIFF MANUAL Platelet Estimate LOW Platelet Morphology Comment NORMAL Red Cell Morphology Comment NORMAL Blood Urea Nitrogen 2 MG/DL Creatinine 0.77 MG/DL Random Glucose 95 MG/DL Total Protein 8.0 GM/DL Albumin 3.6 GM/DL Calcium Level 8.4 MG/DL Alkaline Phosphatase 113 U/L Aspartate Amino Transf (AST/SGOT) 38 U/L Alanine Aminotransferase (ALT/SGPT) 35 U/L Total Bilirubin 1.0 MG/DL Sodium Level 140 MEQ/L Potassium Level 3.5 MEQ/L Chloride Level 105 MEQ/L Carbon Dioxide Level 22.6 MEQ/L Anion Gap 12 MEQ/L Estimat Glomerular Filtration Rate 103 ML/MIN Vital Signs Date Time Temp Pulse Resp B/P (MAP) Pulse Ox O2 Delivery O2 Flow Rate FiO2 02/25/17 20:45 98.0 85 16 137/78 (97) 99 Differential Diagnosis Mood disorder versus substance abuse versus suicidal ideations versus depression versus metabolic abnormality Narrative Course Patient is 61-year-old male that presented to emergency under Gutierres act for psychiatric evaluation. Patient is a history of alcoholism and substance induced mood disorder. He has been seen and evaluated in the emergency department several times. He admits drinking alcohol in excess and realizes he has an issue with this. He reports feeling depressed and suicidal but he has no plan. Mental health screening discussed with the patient. Psychiatric screen ordered. Labs reviewed, no acute abnormalities identified. Alcohol level is 323. Patient is medically cleared for psychiatric evaluation at this time. Will initiate [facility] protocol. Diagnosis Primary Impression: Medical clearance for psychiatric admission Additional Impression: Alcohol intoxication Qualified Codes: F10.920 - Alcohol use, unspecified with intoxication, uncomplicated Scripts No Active Prescriptions or Reported Meds Condition: Stable Erica Jean Baptiste Ann [facility] Feb 26, 2017 02:34
[2017-02-26 02:43] LABS: ALCOHOL 323 MG/DL (0-5)
[2017-02-26] MEDS ORDERED: FLUMAZENIL 0.5 MG/5 ML VIAL IV PUSH PRN (03:00)
[2017-02-26] MEDS ORDERED: LORazepam 2 MG TAB PO PRN (03:00)
[2017-02-26] MEDS ORDERED: LORazepam 2 MG/ML VIAL IV PUSH PRN ×4 (03:00)
[2017-02-26] MEDS ORDERED: LORazepam 1 MG TAB PO PRN (03:00)
[2017-02-26] MEDS ORDERED: ONDANSETRON HCL 4 MG/2 ML VIAL IV PUSH PRN (03:00)
[2017-02-26] MEDS ORDERED: ACETAMINOPHEN 325 MG TAB PO PRN (03:00)
[2017-02-26 06:22] VITALS: BP 108/66; PULSE 64; RESP 18
[2017-02-26 09:00] VITALS: BP 108/66; PULSE 64; RESP 18
--- NOTE | 2017-02-26 09:00 | PD ---
Physical Exam Time Seen by Provider: 08:57 JEVON Lopez, has evaluated the patient, lifted the Gutierres act, and the patient will be discharged. Data Data Last Documented VS Vital Signs Date Time Temp Pulse Resp B/P (MAP) Pulse Ox O2 Delivery O2 Flow Rate FiO2 02/26/17 06:22 64 18 108/66 (80) 02/25/17 20:45 98.0 99 Orders Orders Complete Blood Count With Diff (02/25/17 21:45) Comprehensive Metabolic Panel (02/25/17 21:45) Psych Screen (02/25/17 21:45) Drug Screen, Random Urine (02/25/17 21:45) Alcohol (Ethanol) (02/26/17 00:53) Alcohol Withdrawal Asmt-Ciwa ONCE (02/26/17 02:51) Ondansetron Inj (Zofran Inj) (02/26/17 03:00) Acetaminophen (Tylenol) (02/26/17 03:00) Flumazenil Inj (Romazicon Inj) (02/26/17 03:00) Lorazepam (Ativan) (02/26/17 03:00) Lorazepam Inj (Ativan Inj) (02/26/17 03:00) Lorazepam (Ativan) (02/26/17 03:00) Lorazepam Inj (Ativan Inj) (02/26/17 03:00) Lorazepam Inj (Ativan Inj) (02/26/17 03:00) Lorazepam Inj (Ativan Inj) (02/26/17 03:00) Diet Regular Basic (02/26/17 Breakfast) Labs Laboratory Tests Test 02/25/17 23:15 02/26/17 00:53 Urine Opiates Screen NEG Urine Barbiturates Screen NEG Urine Amphetamines Screen NEG Urine Benzodiazepines Screen POS Urine Cocaine Screen NEG Urine Cannabinoids Screen NEG White Blood Count 7.5 TH/MM3 Red Blood Count 4.19 MIL/MM3 Hemoglobin 13.8 GM/DL Hematocrit 40.8 % Mean Corpuscular Volume 97.2 FL Mean Corpuscular Hemoglobin 32.8 PG Mean Corpuscular Hemoglobin Concent 33.8 % Red Cell Distribution Width 14.1 % Platelet Count 74 TH/MM3 Mean Platelet Volume 6.8 FL Neutrophils (%) (Auto) 41.8 % Lymphocytes (%) (Auto) 44.8 % Monocytes (%) (Auto) 10.3 % Eosinophils (%) (Auto) 2.6 % Basophils (%) (Auto) 0.5 % Neutrophils # (Auto) 3.2 TH/MM3 Lymphocytes # (Auto) 3.4 TH/MM3 Monocytes # (Auto) 0.8 TH/MM3 Eosinophils # (Auto) 0.2 TH/MM3 Basophils # (Auto) 0.0 TH/MM3 CBC Comment AUTO DIFF Differential Total Cells Counted 100 Neutrophils % (Manual) 47 % Band Neutrophils % 2 % Lymphocytes % 42 % Monocytes % 7 % Eosinophils % 1 % Neutrophils # (Manual) 3.8 TH/MM3 Myelocytes 1 % Differential Comment FINAL DIFF MANUAL Platelet Estimate LOW Platelet Morphology Comment NORMAL Red Cell Morphology Comment NORMAL Blood Urea Nitrogen 2 MG/DL Creatinine 0.77 MG/DL Random Glucose 95 MG/DL Total Protein 8.0 GM/DL Albumin 3.6 GM/DL Calcium Level 8.4 MG/DL Alkaline Phosphatase 113 U/L Aspartate Amino Transf (AST/SGOT) 38 U/L Alanine Aminotransferase (ALT/SGPT) 35 U/L Total Bilirubin 1.0 MG/DL Sodium Level 140 MEQ/L Potassium Level 3.5 MEQ/L Chloride Level 105 MEQ/L Carbon Dioxide Level 22.6 MEQ/L Anion Gap 12 MEQ/L Estimat Glomerular Filtration Rate 103 ML/MIN Ethyl Alcohol Level 323 MG/DL MDM Supervised Visit with DIANNE: No Narrative Course JEVON Parks has evaluated the patient, lifted the Gutierres act and the patient will be discharged home. Patient contracts safety. Denies suicidal or homicidal ideations. Patient will be provided community resource packet to REESE MURDOCK for follow-up. Has friends and family for support. Patient is medically cleared for discharge. Diagnosis Primary Impression: Medical clearance for psychiatric admission Additional Impression: Alcohol intoxication Qualified Codes: F10.920 - Alcohol use, unspecified with intoxication, uncomplicated Referrals: MATHIEU (Out patient) [facility] Primary Care Physician Psychiatrist [facility] Patient Instructions: Abuse of Alcohol (ED), Alcohol Dependence (ED), Alcohol Intoxication (ED), General Instructions Additional Instruction: Contract safety to your self and others Stop drinking alcohol Follow-up with psychiatry Follow-up with primary care provider Follow-up with Anival Abernathy Return to the emergency department immediately with worsening of symptoms Med/Other Pt SpecificInfo: No Meds Exist/No RX given Scripts No Active Prescriptions or Reported Meds Disposition: 01 DISCHARGE HOME Condition: Stable Vangie Campoverde Feb 26, 2017 09:00
--- NOTE | 2017-02-26 09:03 | PD ---
History of Present Illness Chief Complaint: Psychiatric Symptoms Time Seen by Provider: 08:50 Travel History International Travel<30 Days: No Contact w/Intl Traveler<30days: No Known affected area: No Legal Status Legal Status: Gutierres Act Gutierres Act Signed By: Keysha Fermin History of Present Illness: History of Present Illness Patient is a 61-year-old male with history of alcohol dependence, known to Ed and psychiatry due to multiple visits to ED for alcohol related issues who presented to the emergency Department under a Gutierres act initiated by law enforcement. The Gutierres act alleges that he walked into a convenience store and told an employee to call the police. Upon the arrival of the police they describe him as " appearing intoxicated" and that he stated that he wanted to kill himself by walking into traffic. He then refused to go to the hospital and was placed under a Gutierres act. Patient with BAL of 323 upon arrival to Ed. He was monitored into J pod until he was clinically sober. Patient reported that he is "having trouble with the alcohol". He states that even when he goes to [facility] he goes right back to drinking. Nevertheless when he is approached this morning he states " I don't know why they brought me here. I am 23 years old and I live in [place] and I can drink if I want to ". He is clinically sober and he denies any suicidal or homicidal ideation, intent or plan at this time. he is not interested in receiving treatment for his alcohol dependence. PFSH Past Medical History Atrial Fibrillation: Yes Blood Disorders: Yes (LOW PLATELETS) Anxiety: Yes Depression: Yes Heart Rhythm Problems: No Cancer: No Cardiovascular Problems: Yes (palpitation) High Cholesterol: No Chest Pain: No Congestive Heart Failure: No Cerebrovascular Accident: No Diabetes: No Dialysis: No Diminished Hearing: No Endocrine: No Gastrointestinal Disorders: Yes (Colitis) GERD: No Genitourinary: No Hepatitis: Yes (HEP C) Hiatal Hernia: No Heparin Induced Thrombocytopen: No Hypertension: Yes Immune Disorder: No Implanted Vascular Access Dvce: No Kidney Stones: No Musculoskeletal: No Neurologic: No Psychiatric: No Reproductive: No Respiratory: No Immunizations Current: Yes Migraines: No Renal Failure: No Seizures: Yes Sickle Cell Disease: No Ulcer: No Past Surgical History Abdominal Surgery: No AICD: No Arteriovenous Shunt: No Cardiac Surgery: No Ear Surgery: No Endocrine Surgery: No Eye Surgery: No Genitourinary Surgery: No Gynecologic Surgery: Yes Insulin Pump: No Joint Replacement: No Neurologic Surgery: No Oral Surgery: Yes Pacemaker: No Thoracic Surgery: No Other Surgery: Yes (UNKNOWN BACK SURGERY) Psychiatric History Psychiatric History Hx Psychiatric Treatment: NUMEROUS GUTIERRES ACTS as well as ED visits for suicidal ideation while intoxicated. History of Inpatient Treatment: Yes Guns or firearms in home: No Social History male. Currently homeless. Hx Alcohol Use: Yes (DAILY, large quantities for many years. ) Hx Tobacco Use: No Hx Substance Use: Yes (ALCOHOLISM ) Substance Use Type: Alcohol Other Substances Used: STARTED DRINKING AT AGE 14. SPENT 8 YRS "DRY" AND THEN "IT GOT BORING" Hx of Substance Use Treatment: Yes (Recent admission to [facility] for detox .) Family Psychiatric History Negative. Allergies-Medications (Allergen,Severity, Reaction): Coded Allergies: Penicillins (Verified Allergy, Unknown, 02/25/17) pt states he has had it before but not sure why its on his record and family members are allergic to penicillin Reported Meds & Prescriptions Reported Meds & Active Scripts Active No Active Prescriptions or Reported Medications Review of Systems Except as stated in HPI: all other systems reviewed are Neg Mental Status Examination Appearance: Disheveled, Malodorous Consciousness: Alert Orientation: x4 Motor Activity: Normal gait Speech: Unremarkable Language: Adequate Fund of Knowledge: Adequate Attention and Concentration: Adequate Memory: Unremarkable Mood: Angry (at being here. Staes he wanted to go to [facility]) Affect: Appropriate Thought Process & Associations: Intact Thought Content: Appropriate Hallucination Type: None Delusion Type: None Suicidal Ideation: No Suicidal Plan: No Suicidal Intention: No Homicidal Ideation: No Homicidal Plan: No Homicidal Intention: No Judgment: Adequate MDM Medical Decision Making Medical Record Reviewed: Yes Assessment/Plan Patient is a 61-year-old male with history of alcohol dependence that presented to the emergency Department under a Gutierres act initiated by IRIS while patient intoxicated. The Gutierres act alleges that he reported that he wanted to walk inot traffic. He was allowed to sober up clinically in secure environment. he presented no behavioral concerns and no suicidality. He is now requesting discharge . States " I don't know why they brought me here. I am 23 years old and I live in [place] and I can drink if I want to " He is not motivated or ready for treatment of his alcohol dependence Patient denies any suicidal or homicidal ideation, intent or plan. Does not meet Gutierres act criteria. Will lift. Psychiatrically clear for discharge. Orders Orders Complete Blood Count With Diff (02/25/17 21:45) Comprehensive Metabolic Panel (02/25/17 21:45) Psych Screen (02/25/17 21:45) Drug Screen, Random Urine (02/25/17 21:45) Alcohol (Ethanol) (02/26/17 00:53) Alcohol Withdrawal Asmt-Ciwa ONCE (02/26/17 02:51) Ondansetron Inj (Zofran Inj) (02/26/17 03:00) Acetaminophen (Tylenol) (02/26/17 03:00) Flumazenil Inj (Romazicon Inj) (02/26/17 03:00) Lorazepam (Ativan) (02/26/17 03:00) Lorazepam Inj (Ativan Inj) (02/26/17 03:00) Lorazepam (Ativan) (02/26/17 03:00) Lorazepam Inj (Ativan Inj) (02/26/17 03:00) Lorazepam Inj (Ativan Inj) (02/26/17 03:00) Lorazepam Inj (Ativan Inj) (02/26/17 03:00) Diet Regular Basic (02/26/17 Breakfast) Results Vital Signs Date Time Temp Pulse Resp B/P (MAP) Pulse Ox O2 Delivery O2 Flow Rate FiO2 02/26/17 06:22 64 18 108/66 (80) 02/25/17 20:45 98.0 85 16 137/78 (97) 99 Laboratory Tests Test 02/25/17 23:15 02/26/17 00:53 Urine Opiates Screen NEG Urine Barbiturates Screen NEG Urine Amphetamines Screen NEG Urine Benzodiazepines Screen POS Urine Cocaine Screen NEG Urine Cannabinoids Screen NEG White Blood Count 7.5 Red Blood Count 4.19 Hemoglobin 13.8 Hematocrit 40.8 Mean Corpuscular Volume 97.2 Mean Corpuscular Hemoglobin 32.8 Mean Corpuscular Hemoglobin Concent 33.8 Red Cell Distribution Width 14.1 Platelet Count 74 Mean Platelet Volume 6.8 Neutrophils (%) (Auto) 41.8 Lymphocytes (%) (Auto) 44.8 Monocytes (%) (Auto) 10.3 Eosinophils (%) (Auto) 2.6 Basophils (%) (Auto) 0.5 Neutrophils # (Auto) 3.2 Lymphocytes # (Auto) 3.4 Monocytes # (Auto) 0.8 Eosinophils # (Auto) 0.2 Basophils # (Auto) 0.0 CBC Comment AUTO DIFF Differential Total Cells Counted 100 Neutrophils % (Manual) 47 Band Neutrophils % 2 Lymphocytes % 42 Monocytes % 7 Eosinophils % 1 Neutrophils # (Manual) 3.8 Myelocytes 1 Differential Comment FINAL DIFF MANUAL Platelet Estimate LOW Platelet Morphology Comment NORMAL Red Cell Morphology Comment NORMAL Blood Urea Nitrogen 2 Creatinine 0.77 Random Glucose 95 Total Protein 8.0 Albumin 3.6 Calcium Level 8.4 Alkaline Phosphatase 113 Aspartate Amino Transf (AST/SGOT) 38 Alanine Aminotransferase (ALT/SGPT) 35 Total Bilirubin 1.0 Sodium Level 140 Potassium Level 3.5 Chloride Level 105 Carbon Dioxide Level 22.6 Anion Gap 12 Estimat Glomerular Filtration Rate 103 Ethyl Alcohol Level 323 Diagnosis Primary Impression: Alcohol dependence with acute alcoholic intoxication Additional Impression: Medical clearance for psychiatric admission Psychiatrically Cleared: Yes Additional Instructions: Patient does not want to go to [facility] for detox. Prescriptions No Active Prescriptions or Reported Meds Disposition: 01 DISCHARGE HOME Condition: Stable Problem Qualifiers Primary Impression: Alcohol dependence with acute alcoholic intoxication Qualified Codes: F10.220 - Alcohol dependence with intoxication, uncomplicated Kasey Taylor [facility] Feb 26, 2017 09:03
== END 2017-02-26 09:59 | disposition home or self-care (01) ==
LOC: NEDAMB 20:39 → NEPJ 02-26 09:59
DX: F10.229 Alcohol dependence with intoxication, unspecified (principal); F19.94 Other psychoactive substance use, unspecified with psychoactive substance-induced mood disorder; F41.8 Other specified anxiety disorders; Y90.8 Blood alcohol level of 240 mg/100 ml or more
CPT/HCPCS: 80053; 80307; 85007; 85027; 99284

== ENCOUNTER 2017-02-28 11:47 | Emergency (ER) | payer OTHER ==
[~2017-02-28] VITALS: Ht 182.9 cm; Wt 73.0 kg
[2017-02-28 12:01] VITALS: BP 133/73; PULSE 90; RESP 16; TEMP 98.4; O2SAT 96
--- NOTE | 2017-02-28 13:20 | PD ---
HPI Chief Complaint: Medical Clearance Time Seen by Provider: 13:18 Travel History International Travel<30 days: No Contact w/Intl Traveler<30days: No Traveled to known affect area: No History of Present Illness HPI Patient comes emergency Department under Gutierres act by police for making suicidal statements. Patient denies any suicidal plans, but states he just does not want to live anymore. Patient denies any medical complaints. Denies any chest pain, shortness of breath, fever, pain, loss change in bowel or bladder. Patient states he drinks to help with his depression. Denies anything making it worse. PFSH Past Medical History Atrial Fibrillation: Yes Blood Disorders: Yes (LOW PLATELETS) Anxiety: Yes Depression: Yes Heart Rhythm Problems: No Cancer: No Cardiovascular Problems: Yes (palpitation) High Cholesterol: No Chest Pain: No Congestive Heart Failure: No Cerebrovascular Accident: No Diabetes: No Dialysis: No Diminished Hearing: No Endocrine: No Gastrointestinal Disorders: Yes (Colitis) GERD: No Genitourinary: No Hepatitis: Yes (HEP C) Hiatal Hernia: No Heparin Induced Thrombocytopen: No Hypertension: Yes Immune Disorder: No Implanted Vascular Access Dvce: No Kidney Stones: No Musculoskeletal: No Neurologic: No Psychiatric: No Reproductive: No Respiratory: No Immunizations Current: Yes Migraines: No Renal Failure: No Seizures: Yes Sickle Cell Disease: No Ulcer: No Past Surgical History Abdominal Surgery: No AICD: No Arteriovenous Shunt: No Cardiac Surgery: No Ear Surgery: No Endocrine Surgery: No Eye Surgery: No Genitourinary Surgery: No Gynecologic Surgery: Yes Insulin Pump: No Joint Replacement: No Neurologic Surgery: No Oral Surgery: Yes Pacemaker: No Thoracic Surgery: No Other Surgery: Yes (UNKNOWN BACK SURGERY) Social History Alcohol Use: Yes (DAILY, large quantities for many years. ) Tobacco Use: No Substance Use: Yes (ALCOHOLISM ) Allergies-Medications (Allergen,Severity, Reaction): Coded Allergies: Penicillins (Verified Allergy, Unknown, 02/28/17) pt states he has had it before but not sure why its on his record and family members are allergic to penicillin Reported Meds & Prescriptions Reported Meds & Active Scripts Active No Active Prescriptions or Reported Medications Review of Systems Except as stated in HPI: all other systems reviewed are Neg Physical Exam Narrative GENERAL: Well-developed, well nourished, in no acute distress, and non-ill appearing. SKIN: Focused skin assessment warm and dry. HEAD: Atraumatic. Normocephalic. EYES: Pupils equal and round. EOMI. No scleral icterus. No injection or drainage. ENT: No nasal bleeding or discharge. Mucous membranes pink and moist. NECK: Trachea midline. Supple. No nuclear rigidity. CARDIOVASCULAR: Regular rate and rhythm. No murmur appreciated. RESPIRATORY: No accessory muscle use. No respiratory distress. Clear to auscultation. Breath sounds equal bilaterally. MUSCULOSKELETAL: No obvious deformities. No clubbing. No cyanosis. No edema. Full range of motion. NEUROLOGICAL: Awake and alert. No obvious cranial nerve deficits. Motor grossly within normal limits. Normal speech. PSYCHIATRIC: Appropriate mood and affect. Data Data Last Documented VS Vital Signs Date Time Temp Pulse Resp B/P (MAP) Pulse Ox O2 Delivery O2 Flow Rate FiO2 02/28/17 12:01 98.4 90 16 133/73 (93) 96 Orders Orders Complete Blood Count With Diff (02/28/17 12:54) Comprehensive Metabolic Panel (02/28/17 12:54) Psych Screen (02/28/17 12:54) Drug Screen, Random Urine (02/28/17 12:54) Alcohol (Ethanol) (02/28/17 12:54) Salicylates (Aspirin) (02/28/17 12:54) Tylenol (Acetaminophen) (02/28/17 12:54) Potassium Chloride (Kcl) (02/28/17 15:00) Labs Laboratory Tests Test 02/28/17 13:25 White Blood Count 6.1 TH/MM3 Red Blood Count 4.23 MIL/MM3 Hemoglobin 14.0 GM/DL Hematocrit 41.6 % Mean Corpuscular Volume 98.4 FL Mean Corpuscular Hemoglobin 33.0 PG Mean Corpuscular Hemoglobin Concent 33.6 % Red Cell Distribution Width 14.4 % Platelet Count 92 TH/MM3 Mean Platelet Volume 6.3 FL Neutrophils (%) (Auto) 61.4 % Lymphocytes (%) (Auto) 29.4 % Monocytes (%) (Auto) 8.2 % Eosinophils (%) (Auto) 0.4 % Basophils (%) (Auto) 0.6 % Neutrophils # (Auto) 3.8 TH/MM3 Lymphocytes # (Auto) 1.8 TH/MM3 Monocytes # (Auto) 0.5 TH/MM3 Eosinophils # (Auto) 0.0 TH/MM3 Basophils # (Auto) 0.0 TH/MM3 CBC Comment AUTO DIFF Blood Urea Nitrogen 4 MG/DL Creatinine 0.88 MG/DL Random Glucose 113 MG/DL Total Protein 8.5 GM/DL Albumin 3.8 GM/DL Calcium Level 8.4 MG/DL Alkaline Phosphatase 115 U/L Aspartate Amino Transf (AST/SGOT) 48 U/L Alanine Aminotransferase (ALT/SGPT) 34 U/L Total Bilirubin 0.9 MG/DL Sodium Level 140 MEQ/L Potassium Level 3.2 MEQ/L Chloride Level 106 MEQ/L Carbon Dioxide Level 22.4 MEQ/L Anion Gap 12 MEQ/L Estimat Glomerular Filtration Rate 89 ML/MIN Salicylates Level LESS THAN 1.7 MG/DL Acetaminophen Level LESS THAN 2.0 MCG/ML Ethyl Alcohol Level 378 MG/DL MDM Medical Decision Making Medical Screen Exam Complete: Yes Emergency Medical Condition: Yes Differential Diagnosis Homicidal, suicidal, alcohol intoxication, alcohol abuse, depression, other Narrative Course Patient was seen and examined. Labs were obtained and reviewed with the exception of the urine drug screen that has not been obtained yet. Patient medically cleared for further treatment and evaluation by psych. Final disposition per psych. Diagnosis Primary Impression: Alcohol abuse Scripts No Active Prescriptions or Reported Meds Condition: Stable Hua Zurita Feb 28, 2017 13:20
[2017-02-28 13:58] LABS: AUTOMATED NEUTROPHIL # 3.8 TH/MM3 (1.8-7.7); BASOPHIL % 0.6 % (0.0-2.0); EOSINOPHIL % 0.4 % (0.0-4.0); HEMATOCRIT 41.6 % (39.0-51.0); LYMPH % 29.4 % (9.0-44.0); LYMPHOCYTE # 1.8 TH/MM3 (1.0-4.8); MEAN CELL VOLUME 98.4 FL (80.0-100.0); MEAN CORPUSCULAR HGB CONC 33.6 % (32.0-36.0); MONO % 8.2 % (0.0-8.0); NEUT % 61.4 % (16.0-70.0); PLATELET COUNT 92 TH/MM3 (150-450); RED BLOOD COUNT 4.23 MIL/MM3 (4.50-5.90); RED CELL DISTRIBUTION WIDTH 14.4 % (11.6-17.2); WHITE BLOOD COUNT 6.1 TH/MM3 (4.0-11.0)
[2017-02-28 14:09] LABS: HEMO FLAGS AUTO DIFF
[2017-02-28 14:23] LABS: ANION GAP 12 MEQ/L (5-15); AST (GOT) 48 U/L (15-37); BICARBONATE 22.4 MEQ/L (21.0-32.0); BLOOD UREA NITROGEN 4 MG/DL (7-18); CHLORIDE 106 MEQ/L (98-107); GLOMERULAR FILTRATION RATE 89 ML/MIN (>89); POTASSIUM 3.2 MEQ/L (3.5-5.1); SODIUM (NA) 140 MEQ/L (136-145)
[2017-02-28 14:26] LABS: ALKALINE PHOSPHATASE 115 U/L (45-117); ALT (GPT) 34 U/L (12-78); TOTAL BILIRUBIN ADULT 0.9 MG/DL (0.2-1.0)
[2017-02-28 14:46] LABS: ACETAMINOPHEN LESS THAN 2.0 MCG/ML (10.0-30.0); ALCOHOL 378 MG/DL (0-5)
[2017-02-28] MEDS ORDERED: POTASSIUM CHLORIDE 20 MEQ CONTROLLED RELEASE TAB PO ONE (15:00)
[2017-02-28 15:04] LABS: SCAN/DIFF AUTO DIFF CONFIRMED
[2017-02-28 15:05] LABS: PLATELET ESTIMATE SMEAR LOW (NORMAL); PLATELET MORPHOLOGY NORMAL (NORMAL)
[2017-02-28 15:13] VITALS: BP 132/74
--- NOTE | 2017-02-28 15:16 | PD ---
History of Present Illness Chief Complaint: Medical Clearance Time Seen by Provider: 15:00 Travel History International Travel<30 Days: No Contact w/Intl Traveler<30days: No Known affected area: No Legal Status Legal Status: Gutierres Act Gutierres Act Signed By: Marie Gutierres Act Comment: BA signed by: IRIS EDWARDS Badge#[id number], Case#[id number] , 02/28/17,1126 History of Present Illness: Patient very well known to this physician and ED staff. Once again brought in with intoxication and supposedly did public disturbance/suicidal. Patient denies suicidal or homicidal ideation, plan or intent. No psychosis. Cognition is intact. Wants to go home. Competent to make these decisions. PFSH Past Medical History Atrial Fibrillation: Yes Blood Disorders: Yes (LOW PLATELETS) Anxiety: Yes Depression: Yes Heart Rhythm Problems: No Cancer: No Cardiovascular Problems: Yes (palpitation) High Cholesterol: No Chest Pain: No Congestive Heart Failure: No Cerebrovascular Accident: No Diabetes: No Dialysis: No Diminished Hearing: No Endocrine: No Gastrointestinal Disorders: Yes (Colitis) GERD: No Genitourinary: No Hepatitis: Yes (HEP C) Hiatal Hernia: No Heparin Induced Thrombocytopen: No Hypertension: Yes Immune Disorder: No Implanted Vascular Access Dvce: No Kidney Stones: No Musculoskeletal: No Neurologic: No Psychiatric: No Reproductive: No Respiratory: No Immunizations Current: Yes Migraines: No Renal Failure: No Seizures: Yes Sickle Cell Disease: No Ulcer: No Past Surgical History Abdominal Surgery: No AICD: No Arteriovenous Shunt: No Cardiac Surgery: No Ear Surgery: No Endocrine Surgery: No Eye Surgery: No Genitourinary Surgery: No Gynecologic Surgery: Yes Insulin Pump: No Joint Replacement: No Neurologic Surgery: No Oral Surgery: Yes Pacemaker: No Thoracic Surgery: No Other Surgery: Yes (UNKNOWN BACK SURGERY) Psychiatric History Psychiatric History Hx Psychiatric Treatment: NUMEROUS GUTIERRES ACTS as well as ED visits for suicidal ideation while intoxicated. History of Inpatient Treatment: Yes Guns or firearms in home: No Social History Hx Alcohol Use: Yes (DAILY, large quantities for many years. ) Hx Tobacco Use: No Hx Substance Use: Yes (ALCOHOLISM ) Substance Use Type: Alcohol Other Substances Used: STARTED DRINKING AT AGE 14. SPENT 8 YRS "DRY" AND THEN "IT GOT BORING" Hx of Substance Use Treatment: Yes Allergies-Medications (Allergen,Severity, Reaction): Coded Allergies: Penicillins (Verified Allergy, Unknown, 02/28/17) pt states he has had it before but not sure why its on his record and family members are allergic to penicillin Reported Meds & Prescriptions Reported Meds & Active Scripts Active No Active Prescriptions or Reported Medications Review of Systems Except as stated in HPI: all other systems reviewed are Neg Mental Status Examination Appearance: Appropriate Consciousness: Alert Orientation: x4 Motor Activity: Normal gait Speech: Unremarkable Language: Adequate Fund of Knowledge: Adequate Attention and Concentration: Adequate Memory: Unremarkable Mood: Appropriate Affect: Appropriate Thought Process & Associations: Intact Thought Content: Appropriate Hallucination Type: None Delusion Type: None Suicidal Ideation: No Suicidal Plan: No Suicidal Intention: No Homicidal Ideation: No Homicidal Plan: No Homicidal Intention: No Insight: Adequate Judgment: Adequate MDM Medical Decision Making Medical Record Reviewed: Yes Assessment/Plan Patient interviewed injury. Medical record reviewed. Case discussed with nurse Sofiya. Bhavik act lifted. Patient has alcohol problem and has been referred to Anival Mancera once again, although he has been referred multiple times. Orders Orders Complete Blood Count With Diff (02/28/17 12:54) Comprehensive Metabolic Panel (02/28/17 12:54) Psych Screen (02/28/17 12:54) Drug Screen, Random Urine (02/28/17 12:54) Alcohol (Ethanol) (02/28/17 12:54) Salicylates (Aspirin) (02/28/17 12:54) Tylenol (Acetaminophen) (02/28/17 12:54) Potassium Chloride (Kcl) (02/28/17 15:00) Ed Discharge Order (02/28/17 15:07) Results Vital Signs Date Time Temp Pulse Resp B/P (MAP) Pulse Ox O2 Delivery O2 Flow Rate FiO2 02/28/17 12:01 98.4 90 16 133/73 (93) 96 Laboratory Tests Test 02/28/17 13:25 White Blood Count 6.1 Red Blood Count 4.23 Hemoglobin 14.0 Hematocrit 41.6 Mean Corpuscular Volume 98.4 Mean Corpuscular Hemoglobin 33.0 Mean Corpuscular Hemoglobin Concent 33.6 Red Cell Distribution Width 14.4 Platelet Count 92 Mean Platelet Volume 6.3 Neutrophils (%) (Auto) 61.4 Lymphocytes (%) (Auto) 29.4 Monocytes (%) (Auto) 8.2 Eosinophils (%) (Auto) 0.4 Basophils (%) (Auto) 0.6 Neutrophils # (Auto) 3.8 Lymphocytes # (Auto) 1.8 Monocytes # (Auto) 0.5 Eosinophils # (Auto) 0.0 Basophils # (Auto) 0.0 CBC Comment AUTO DIFF Differential Comment AUTO DIFF CONFIRMED Platelet Estimate LOW Platelet Morphology Comment NORMAL Blood Urea Nitrogen 4 Creatinine 0.88 Random Glucose 113 Total Protein 8.5 Albumin 3.8 Calcium Level 8.4 Alkaline Phosphatase 115 Aspartate Amino Transf (AST/SGOT) 48 Alanine Aminotransferase (ALT/SGPT) 34 Total Bilirubin 0.9 Sodium Level 140 Potassium Level 3.2 Chloride Level 106 Carbon Dioxide Level 22.4 Anion Gap 12 Estimat Glomerular Filtration Rate 89 Salicylates Level LESS THAN 1.7 Acetaminophen Level LESS THAN 2.0 Ethyl Alcohol Level 378 Diagnosis Primary Impression: Alcohol abuse Departure Forms: Tests/Procedures Patient Instructions: General Instructions Prescriptions No Active Prescriptions or Reported Meds Disposition: 01 DISCHARGE HOME Condition: Stable Davie Oconnell MD Feb 28, 2017 15:15
== END 2017-02-28 15:14 | disposition home or self-care (01) ==
LOC: NEDAMB 11:47
DX: F10.129 Alcohol abuse with intoxication, unspecified (principal); Y90.8 Blood alcohol level of 240 mg/100 ml or more
CPT/HCPCS: 80053; 80307; 85025; 99283

== ENCOUNTER 2017-03-05 20:38 | Emergency (ER) | payer OTHER ==
[~2017-03-05] VITALS: Ht 175.3 cm; Wt 75.0 kg
[2017-03-05 21:10] VITALS: BP 106/56; PULSE 88; RESP 16; TEMP 97.7; O2SAT 95
[2017-03-05] MEDS ORDERED: FLUMAZENIL 0.5 MG/5 ML VIAL IV PUSH PRN (22:00)
[2017-03-05] MEDS ORDERED: LORazepam 2 MG TAB PO PRN (22:00)
[2017-03-05] MEDS ORDERED: LORazepam 2 MG/ML VIAL IV PUSH PRN ×4 (22:00)
[2017-03-05 22:27] LABS: AUTOMATED NEUTROPHIL # 3.1 TH/MM3 (1.8-7.7); BASOPHIL % 0.5 % (0.0-2.0); EOSINOPHIL # 0.1 TH/MM3 (0-0.4); EOSINOPHIL % 1.8 % (0.0-4.0); HEMATOCRIT 38.2 % (39.0-51.0); HEMO FLAGS DIFF FINAL; LYMPHOCYTE # 2.5 TH/MM3 (1.0-4.8); MEAN CELL VOLUME 100.1 FL (80.0-100.0); MEAN CORPUSCULAR HEMOGLOBIN 33.8 PG (27.0-34.0); MEAN CORPUSCULAR HGB CONC 33.8 % (32.0-36.0); MONO % 13.9 % (0.0-8.0); NEUT % 45.8 % (16.0-70.0); PLATELET COUNT 118 TH/MM3 (150-450); RED BLOOD COUNT 3.82 MIL/MM3 (4.50-5.90); RED CELL DISTRIBUTION WIDTH 14.7 % (11.6-17.2); WHITE BLOOD COUNT 6.7 TH/MM3 (4.0-11.0)
--- NOTE | 2017-03-05 22:39 | PD ---
HPI Chief Complaint: Psychiatric Symptoms Time Seen by Provider: 21:45 Travel History International Travel<30 days: No Contact w/Intl Traveler<30days: No Traveled to known affect area: No History of Present Illness HPI 61-year-old male with chronic alcoholism, well known to the ED staff, presents to the ED under [employer] act for suicidal ideation. The [employer] act paper work the patient told the responding officer that he is suicidal due to his 's leaving him. He states that he has a gun and will kill himself. On presentation the patient endorses suicidal ideation. He states he is very depressed. He endorses drinking alcohol today. He denies somatic complaints. PFSH Past Medical History Atrial Fibrillation: Yes Blood Disorders: Yes (LOW PLATELETS) Anxiety: Yes Depression: Yes Heart Rhythm Problems: No Cancer: No Cardiovascular Problems: Yes (palpitation) High Cholesterol: No Chest Pain: No Congestive Heart Failure: No Cerebrovascular Accident: No Diabetes: No Dialysis: No Diminished Hearing: No Endocrine: No Gastrointestinal Disorders: Yes (Colitis) GERD: No Genitourinary: No Hepatitis: Yes (HEP C) Hiatal Hernia: No Heparin Induced Thrombocytopen: No Hypertension: Yes Immune Disorder: No Implanted Vascular Access Dvce: No Kidney Stones: No Musculoskeletal: No Neurologic: No Psychiatric: No Reproductive: No Respiratory: No Immunizations Current: Yes Migraines: No Renal Failure: No Seizures: Yes Sickle Cell Disease: No Ulcer: No Past Surgical History Abdominal Surgery: No AICD: No Arteriovenous Shunt: No Cardiac Surgery: No Ear Surgery: No Endocrine Surgery: No Eye Surgery: No Genitourinary Surgery: No Gynecologic Surgery: Yes Insulin Pump: No Joint Replacement: No Neurologic Surgery: No Oral Surgery: Yes Pacemaker: No Thoracic Surgery: No Other Surgery: Yes (UNKNOWN BACK SURGERY) Social History Alcohol Use: Yes (DAILY, large quantities for many years. ) Tobacco Use: No Substance Use: Yes (ALCOHOLISM ) Allergies-Medications (Allergen,Severity, Reaction): Coded Allergies: Penicillins (Verified Allergy, Unknown, 03/05/17) pt states he has had it before but not sure why its on his record and family members are allergic to penicillin Reported Meds & Prescriptions Reported Meds & Active Scripts Active No Active Prescriptions or Reported Medications Review of Systems ROS Limitations: Intoxication Except as stated in HPI: all other systems reviewed are Neg Physical Exam Exam Limitations: Intoxication Narrative GENERAL: Thin, disheveled white male in no acute distress. SKIN: Focused skin assessment warm/dry. Multiple pinpoint erythematous areas of the left antecubital space, consistent with ant bites. Localized erythema. No warmth. No edema. No drainage. HEAD: Normocephalic. EYES: No scleral icterus. No injection or drainage. NECK: Supple, trachea midline. No JVD or lymphadenopathy. CARDIOVASCULAR: Regular rate and rhythm without murmurs, gallops, or rubs. RESPIRATORY: Breath sounds clear and equal bilaterally. No accessory muscle use. GASTROINTESTINAL: Abdomen soft, non-tender, nondistended. Active bowel sounds. MUSCULOSKELETAL: No cyanosis, or edema. BACK: Nontender without obvious deformity. No CVA tenderness. Data Data Last Documented VS Vital Signs Date Time Temp Pulse Resp B/P (MAP) Pulse Ox O2 Delivery O2 Flow Rate FiO2 03/05/17 21:10 97.7 88 16 106/56 (73) 95 Orders Orders Complete Blood Count With Diff (03/05/17 21:58) Comprehensive Metabolic Panel (03/05/17 21:58) Psych Screen (03/05/17 21:58) Drug Screen, Random Urine (03/05/17 21:58) Alcohol (Ethanol) (03/05/17 21:58) Alcohol Withdrawal Asmt-Ciwa ONCE (03/05/17 21:58) Flumazenil Inj (Romazicon Inj) (03/05/17 22:00) Lorazepam (Ativan) (03/05/17 22:00) Lorazepam Inj (Ativan Inj) (03/05/17 22:00) Lorazepam (Ativan) (03/05/17 22:00) Lorazepam Inj (Ativan Inj) (03/05/17 22:00) Lorazepam Inj (Ativan Inj) (03/05/17 22:00) Lorazepam Inj (Ativan Inj) (03/05/17 22:00) Labs Laboratory Tests Test 03/05/17 22:00 White Blood Count 6.7 TH/MM3 Red Blood Count 3.82 MIL/MM3 Hemoglobin 12.9 GM/DL Hematocrit 38.2 % Mean Corpuscular Volume 100.1 FL Mean Corpuscular Hemoglobin 33.8 PG Mean Corpuscular Hemoglobin Concent 33.8 % Red Cell Distribution Width 14.7 % Platelet Count 118 TH/MM3 Mean Platelet Volume 6.8 FL Neutrophils (%) (Auto) 45.8 % Lymphocytes (%) (Auto) 38.0 % Monocytes (%) (Auto) 13.9 % Eosinophils (%) (Auto) 1.8 % Basophils (%) (Auto) 0.5 % Neutrophils # (Auto) 3.1 TH/MM3 Lymphocytes # (Auto) 2.5 TH/MM3 Monocytes # (Auto) 0.9 TH/MM3 Eosinophils # (Auto) 0.1 TH/MM3 Basophils # (Auto) 0.0 TH/MM3 CBC Comment DIFF FINAL Differential Comment MDM Medical Decision Making Medical Screen Exam Complete: Yes Emergency Medical Condition: Yes Differential Diagnosis Acute alcohol intoxication versus malingering versus suicidal ideations versus substance abuse versus substance-induced mood disorder other Narrative Course 61-year-old male with chronic alcoholism, well known to the ED staff, presents to the ED under [employer] act for suicidal ideation. The [employer] act paper work the patient told the responding officer that he is suicidal due to his 's leaving him. He states that he has a gun and will kill himself. On presentation the patient endorses suicidal ideation. He states he is very depressed. He endorses drinking alcohol today. He denies somatic complaints. Vitals reviewed. The patient is intoxicated on presentation but the exam is otherwise unremarkable. Basic lab work ordered and pending. Anticipate medical clearance for psychiatric evaluation. Patient signed out to Dr. Malhotra at change of shift. See her note for disposition. Scripts No Active Prescriptions or Reported Meds Monse Blanchard Mar 05, 2017 22:39
[2017-03-05 22:48] LABS: ANION GAP 9 MEQ/L (5-15); AST (GOT) 44 U/L (15-37); BICARBONATE 25.3 MEQ/L (21.0-32.0); BLOOD UREA NITROGEN 14 MG/DL (7-18); CHLORIDE 114 MEQ/L (98-107); GLOMERULAR FILTRATION RATE 72 ML/MIN (>89); POTASSIUM 3.7 MEQ/L (3.5-5.1); SODIUM (NA) 148 MEQ/L (136-145)
[2017-03-05 22:54] LABS: ALCOHOL 494 MG/DL (0-5); ALKALINE PHOSPHATASE 87 U/L (45-117); ALT (GPT) 30 U/L (12-78); TOTAL BILIRUBIN ADULT 0.3 MG/DL (0.2-1.0)
--- NOTE | 2017-03-06 00:10 | PD ---
Data Data Last Documented VS Vital Signs Date Time Temp Pulse Resp B/P (MAP) Pulse Ox O2 Delivery O2 Flow Rate FiO2 03/06/17 05:00 71 14 98/59 (72) 97 03/05/17 21:10 97.7 Orders Orders Complete Blood Count With Diff (03/05/17 21:58) Comprehensive Metabolic Panel (03/05/17 21:58) Psych Screen (03/05/17 21:58) Drug Screen, Random Urine (03/05/17 21:58) Alcohol (Ethanol) (03/05/17 21:58) Alcohol Withdrawal Asmt-Ciwa ONCE (03/05/17 21:58) Flumazenil Inj (Romazicon Inj) (03/05/17 22:00) Lorazepam (Ativan) (03/05/17 22:00) Lorazepam Inj (Ativan Inj) (03/05/17 22:00) Lorazepam (Ativan) (03/05/17 22:00) Lorazepam Inj (Ativan Inj) (03/05/17 22:00) Lorazepam Inj (Ativan Inj) (03/05/17 22:00) Lorazepam Inj (Ativan Inj) (03/05/17 22:00) Sodium Chlor 0.9% 1000 Ml Inj (Ns 1000 M (03/06/17 00:15) Thiamine Inj (Thiamine Inj) (03/06/17 00:15) Labs Laboratory Tests Test 03/05/17 22:00 White Blood Count 6.7 TH/MM3 Red Blood Count 3.82 MIL/MM3 Hemoglobin 12.9 GM/DL Hematocrit 38.2 % Mean Corpuscular Volume 100.1 FL Mean Corpuscular Hemoglobin 33.8 PG Mean Corpuscular Hemoglobin Concent 33.8 % Red Cell Distribution Width 14.7 % Platelet Count 118 TH/MM3 Mean Platelet Volume 6.8 FL Neutrophils (%) (Auto) 45.8 % Lymphocytes (%) (Auto) 38.0 % Monocytes (%) (Auto) 13.9 % Eosinophils (%) (Auto) 1.8 % Basophils (%) (Auto) 0.5 % Neutrophils # (Auto) 3.1 TH/MM3 Lymphocytes # (Auto) 2.5 TH/MM3 Monocytes # (Auto) 0.9 TH/MM3 Eosinophils # (Auto) 0.1 TH/MM3 Basophils # (Auto) 0.0 TH/MM3 CBC Comment DIFF FINAL Differential Comment Blood Urea Nitrogen 14 MG/DL Creatinine 1.06 MG/DL Random Glucose 117 MG/DL Total Protein 7.3 GM/DL Albumin 3.3 GM/DL Calcium Level 8.3 MG/DL Alkaline Phosphatase 87 U/L Aspartate Amino Transf (AST/SGOT) 44 U/L Alanine Aminotransferase (ALT/SGPT) 30 U/L Total Bilirubin 0.3 MG/DL Sodium Level 148 MEQ/L Potassium Level 3.7 MEQ/L Chloride Level 114 MEQ/L Carbon Dioxide Level 25.3 MEQ/L Anion Gap 9 MEQ/L Estimat Glomerular Filtration Rate 72 ML/MIN Ethyl Alcohol Level 494 MG/DL MDM Medical Record Reviewed: Yes Supervised Visit with DIANNE: No Narrative Course During the course of the patients emergency department visit, the patients history, examination, and differential diagnosis were reviewed with the patient. The patient had IV access obtained and blood work sent for analysis. The patient's case was checked out to me by Monse at the conclusion of her shift. Please see the patient's complete history and physical. The patient was initially provided normal saline 1 L IV fluid bolus, thiamine 100 mg IV. The patients laboratory studies were reviewed and remarkable for a light, 6.7, hemoglobin 12.9, platelets 118 with 13.9 monocytes, CMP is remarkable for sodium of 148, chloride 114, glucose 117, AST 44, albumin 3.3. Alcohol level CDXCIV. The patient has been medically cleared for evaluation by the psychiatric screener and psychiatrist under a [employer] act. Diagnosis Primary Impression: Depression with suicidal ideation Additional Impression: Alcohol dependence with acute alcoholic intoxication Qualified Codes: F10.229 - Alcohol dependence with intoxication, unspecified Scripts No Active Prescriptions or Reported Meds Anu Malhotra MD Mar 06, 2017 00:10
[2017-03-06] MEDS ORDERED: SODIUM CHLOR 0.9% 1000 ML INJ 1,000 ML IV ONE (00:15)
[2017-03-06] MEDS ORDERED: THIAMINE INJ 100 MG in SODIUM CHLORIDE 0.9% INJ 100 ML IV ONE (00:15)
[2017-03-06 05:00] VITALS: BP 98/59; PULSE 71; RESP 14; O2SAT 97
[2017-03-06 09:00] VITALS: BP 115/60; RESP 16; O2SAT 98
[2017-03-06] MEDS: LORazepam 1 MG TAB PO PRN ×2 (11:35→15:39)
[2017-03-06 12:46] VITALS: BP 98/60; PULSE 80; RESP 16; O2SAT 97
--- NOTE | 2017-03-06 17:48 | PD ---
History of Present Illness Chief Complaint: Psychiatric Symptoms Time Seen by Provider: 16:30 Travel History International Travel<30 Days: No Contact w/Intl Traveler<30days: No Known affected area: No Legal Status Legal Status: [employer] History of Present Illness: Patient very well known to this physician. No suicidal or homicidal ideation, plan or intent at this time. No psychotic symptoms and no cognitive deficits. Verbally shlomo for safety. PFSH Past Medical History Atrial Fibrillation: Yes Blood Disorders: Yes (LOW PLATELETS) Anxiety: Yes Depression: Yes Heart Rhythm Problems: No Cancer: No Cardiovascular Problems: Yes (palpitation) High Cholesterol: No Chest Pain: No Congestive Heart Failure: No Cerebrovascular Accident: No Diabetes: No Dialysis: No Diminished Hearing: No Endocrine: No Gastrointestinal Disorders: Yes (Colitis) GERD: No Genitourinary: No Hepatitis: Yes (HEP C) Hiatal Hernia: No Heparin Induced Thrombocytopen: No Hypertension: Yes Immune Disorder: No Implanted Vascular Access Dvce: No Kidney Stones: No Musculoskeletal: No Neurologic: No Psychiatric: No Reproductive: No Respiratory: No Immunizations Current: Yes Migraines: No Renal Failure: No Seizures: Yes Sickle Cell Disease: No Ulcer: No Past Surgical History Abdominal Surgery: No AICD: No Arteriovenous Shunt: No Cardiac Surgery: No Ear Surgery: No Endocrine Surgery: No Eye Surgery: No Genitourinary Surgery: No Gynecologic Surgery: Yes Insulin Pump: No Joint Replacement: No Neurologic Surgery: No Oral Surgery: Yes Pacemaker: No Thoracic Surgery: No Other Surgery: Yes (UNKNOWN BACK SURGERY) Psychiatric History Psychiatric History Hx Psychiatric Treatment: NUMEROUS [employer]S as well as ED visits for suicidal ideation while intoxicated. History of Inpatient Treatment: Yes Social History Hx Alcohol Use: Yes (DAILY, large quantities for many years. ) Hx Tobacco Use: No Hx Substance Use: Yes (ALCOHOLISM ) Substance Use Type: Alcohol Other Substances Used: STARTED DRINKING AT AGE 14. SPENT 8 YRS "DRY" AND THEN "IT GOT BORING" Hx of Substance Use Treatment: Yes Allergies-Medications (Allergen,Severity, Reaction): Coded Allergies: Penicillins (Verified Allergy, Unknown, 03/05/17) pt states he has had it before but not sure why its on his record and family members are allergic to penicillin Reported Meds & Prescriptions Reported Meds & Active Scripts Active No Active Prescriptions or Reported Medications Review of Systems Except as stated in HPI: all other systems reviewed are Neg Mental Status Examination Appearance: Appropriate Consciousness: Alert Orientation: x4 Motor Activity: Normal gait Speech: Unremarkable Language: Adequate Fund of Knowledge: Adequate Attention and Concentration: Adequate Memory: Unremarkable Mood: Appropriate Affect: Appropriate Thought Process & Associations: Intact Thought Content: Appropriate Hallucination Type: None Delusion Type: None Suicidal Ideation: No Suicidal Plan: No Suicidal Intention: No Homicidal Ideation: No Homicidal Plan: No Homicidal Intention: No Insight: Adequate Judgment: Adequate MDM Medical Decision Making Medical Record Reviewed: Yes Assessment/Plan Patient interviewed at bedside, medical record reviewed and case discussed with nurse. Patient once again shlomo for safety and competent to do so. Informed patient stop drinking and attend AA, etc. Orders Orders Complete Blood Count With Diff (03/05/17 21:58) Comprehensive Metabolic Panel (03/05/17 21:58) Psych Screen (03/05/17 21:58) Drug Screen, Random Urine (03/05/17 21:58) Alcohol (Ethanol) (03/05/17 21:58) Alcohol Withdrawal Asmt-Ciwa ONCE (03/05/17 21:58) Flumazenil Inj (Romazicon Inj) (03/05/17 22:00) Lorazepam (Ativan) (03/05/17 22:00) Lorazepam Inj (Ativan Inj) (03/05/17 22:00) Lorazepam (Ativan) (03/05/17 22:00) Lorazepam Inj (Ativan Inj) (03/05/17 22:00) Lorazepam Inj (Ativan Inj) (03/05/17 22:00) Lorazepam Inj (Ativan Inj) (03/05/17 22:00) Sodium Chlor 0.9% 1000 Ml Inj (Ns 1000 M (03/06/17 00:15) Thiamine Inj (Thiamine Inj) (03/06/17 00:15) Results Vital Signs Date Time Temp Pulse Resp B/P (MAP) Pulse Ox O2 Delivery O2 Flow Rate FiO2 03/06/17 17:25 03/06/17 12:46 80 16 98/60 (73) 97 Room Air 03/06/17 09:00 16 115/60 (78) 98 03/06/17 05:00 71 14 98/59 (72) 97 03/05/17 21:10 97.7 88 16 106/56 (73) 95 Laboratory Tests Test 03/05/17 22:00 White Blood Count 6.7 Red Blood Count 3.82 Hemoglobin 12.9 Hematocrit 38.2 Mean Corpuscular Volume 100.1 Mean Corpuscular Hemoglobin 33.8 Mean Corpuscular Hemoglobin Concent 33.8 Red Cell Distribution Width 14.7 Platelet Count 118 Mean Platelet Volume 6.8 Neutrophils (%) (Auto) 45.8 Lymphocytes (%) (Auto) 38.0 Monocytes (%) (Auto) 13.9 Eosinophils (%) (Auto) 1.8 Basophils (%) (Auto) 0.5 Neutrophils # (Auto) 3.1 Lymphocytes # (Auto) 2.5 Monocytes # (Auto) 0.9 Eosinophils # (Auto) 0.1 Basophils # (Auto) 0.0 CBC Comment DIFF FINAL Differential Comment Blood Urea Nitrogen 14 Creatinine 1.06 Random Glucose 117 Total Protein 7.3 Albumin 3.3 Calcium Level 8.3 Alkaline Phosphatase 87 Aspartate Amino Transf (AST/SGOT) 44 Alanine Aminotransferase (ALT/SGPT) 30 Total Bilirubin 0.3 Sodium Level 148 Potassium Level 3.7 Chloride Level 114 Carbon Dioxide Level 25.3 Anion Gap 9 Estimat Glomerular Filtration Rate 72 Ethyl Alcohol Level 494 Diagnosis Primary Impression: alcohol dependency Departure Forms: Tests/Procedures Patient Instructions: General Instructions, Depression (ED) Prescriptions No Active Prescriptions or Reported Meds Davie Oconnell MD Mar 06, 2017 17:48
== END 2017-03-06 17:50 | disposition home or self-care (01) ==
LOC: NEPC 20:38
DX: F10.229 Alcohol dependence with intoxication, unspecified (principal); R45.851 Suicidal ideations; F32.9 Major depressive disorder, single episode, unspecified; I48.91 Unspecified atrial fibrillation; B19.20 Unspecified viral hepatitis C without hepatic coma; I10 Essential (primary) hypertension
CPT/HCPCS: 80053; 80307; 85025; 96365; 96366; 99284; J3411; J7030

== ENCOUNTER 2017-03-06 21:43 | Emergency (ER) | payer SELFPAY ==
[~2017-03-06] VITALS: Ht 182.9 cm; Wt 85.0 kg
[2017-03-06 21:45] VITALS: BP 140/72; PULSE 68; RESP 18; TEMP 98.7; O2SAT 98
[2017-03-06 22:32] LABS: AUTOMATED NEUTROPHIL # 6.1 TH/MM3 (1.8-7.7); BASOPHIL # 0.1 TH/MM3 (0-0.2); BASOPHIL % 1.1 % (0.0-2.0); EOSINOPHIL # 0.1 TH/MM3 (0-0.4); EOSINOPHIL % 0.9 % (0.0-4.0); HEMATOCRIT 37.5 % (39.0-51.0); HEMO FLAGS DIFF FINAL; LYMPH % 25.1 % (9.0-44.0); LYMPHOCYTE # 2.5 TH/MM3 (1.0-4.8); MEAN CELL VOLUME 99.4 FL (80.0-100.0); MEAN CORPUSCULAR HEMOGLOBIN 33.7 PG (27.0-34.0); MEAN CORPUSCULAR HGB CONC 33.9 % (32.0-36.0); MONO % 11.6 % (0.0-8.0); NEUT % 61.3 % (16.0-70.0); PLATELET COUNT 114 TH/MM3 (150-450); RED BLOOD COUNT 3.77 MIL/MM3 (4.50-5.90); RED CELL DISTRIBUTION WIDTH 14.7 % (11.6-17.2); WHITE BLOOD COUNT 9.9 TH/MM3 (4.0-11.0)
[2017-03-06 22:54] LABS: ALKALINE PHOSPHATASE 82 U/L (45-117); ALT (GPT) 29 U/L (12-78); ANION GAP 9 MEQ/L (5-15); AST (GOT) 40 U/L (15-37); BICARBONATE 25.9 MEQ/L (21.0-32.0); BLOOD UREA NITROGEN 9 MG/DL (7-18); CHLORIDE 105 MEQ/L (98-107); GLOMERULAR FILTRATION RATE 126 ML/MIN (>89); SODIUM (NA) 140 MEQ/L (136-145); TOTAL BILIRUBIN ADULT 0.4 MG/DL (0.2-1.0)
--- NOTE | 2017-03-06 23:25 | PD ---
HPI Chief Complaint: Psychiatric Symptoms Time Seen by Provider: 23:10 Travel History International Travel<30 days: No Contact w/Intl Traveler<30days: No Traveled to known affect area: No History of Present Illness HPI 61-year-old male complains of feeling suicidal and requesting help with alcohol problem. Patient was brought in by PD is voluntary psychiatric evaluation. Patient is with history alcohol abuse. Patient feeling suicidal tonight. Patient has history of hepatitis C, hypertension, seizure, thrombocytopenia. PFSH Past Medical History Atrial Fibrillation: Yes Blood Disorders: Yes (LOW PLATELETS) Anxiety: Yes Depression: Yes Heart Rhythm Problems: No Cancer: No Cardiovascular Problems: Yes (palpitation) High Cholesterol: No Chest Pain: No Congestive Heart Failure: No Cerebrovascular Accident: No Diabetes: No Dialysis: No Diminished Hearing: No Endocrine: No Gastrointestinal Disorders: Yes (Colitis) GERD: No Genitourinary: No Hepatitis: Yes (HEP C) Hiatal Hernia: No Heparin Induced Thrombocytopen: No Hypertension: Yes Immune Disorder: No Implanted Vascular Access Dvce: No Kidney Stones: No Musculoskeletal: No Neurologic: No Psychiatric: No Reproductive: No Respiratory: No Immunizations Current: Yes Migraines: No Renal Failure: No Seizures: Yes Sickle Cell Disease: No Ulcer: No Influenza Vaccination: No Past Surgical History Abdominal Surgery: No AICD: No Arteriovenous Shunt: No Cardiac Surgery: No Ear Surgery: No Endocrine Surgery: No Eye Surgery: No Genitourinary Surgery: No Gynecologic Surgery: Yes Insulin Pump: No Joint Replacement: No Neurologic Surgery: No Oral Surgery: Yes Pacemaker: No Thoracic Surgery: No Other Surgery: Yes (UNKNOWN BACK SURGERY) Social History Alcohol Use: Yes (DAILY, large quantities for many years. ) Tobacco Use: No Substance Use: Yes (ALCOHOLISM ) Allergies-Medications (Allergen,Severity, Reaction): Coded Allergies: Penicillins (Verified Allergy, Unknown, 03/06/17) pt states he has had it before but not sure why its on his record and family members are allergic to penicillin Reported Meds & Prescriptions Reported Meds & Active Scripts Active No Active Prescriptions or Reported Medications Review of Systems General / Constitutional: No: Fever Eyes: No: Visual changes HENT: No: Headaches Cardiovascular: No: Chest Pain or Discomfort Respiratory: No: Shortness of Breath Gastrointestinal: No: Abdominal Pain Genitourinary: No: Dysuria Musculoskeletal: No: Pain Skin: No Rash Neurologic: No: Weakness Psychiatric: No: Depression Endocrine: No: Polydipsia Hematologic/Lymphatic: No: Easy Bruising Physical Exam Narrative GENERAL: Well-nourished, well-developed patient. SKIN: Focused skin assessment warm/dry. HEAD: Normocephalic. EYES: No scleral icterus. No injection or drainage. NECK: Supple, trachea midline. No JVD or lymphadenopathy. CARDIOVASCULAR: Regular rate and rhythm without murmurs, gallops, or rubs. RESPIRATORY: Breath sounds equal bilaterally. No accessory muscle use. GASTROINTESTINAL: Abdomen soft, non-tender, nondistended. MUSCULOSKELETAL: No cyanosis, or edema. BACK: Nontender without obvious deformity. No CVA tenderness. Neurologic exam: Patient's is lethargic and sleepy. Patient moves all extremities well. No obvious focal neurological deficit. Data Data Last Documented VS Vital Signs Date Time Temp Pulse Resp B/P (MAP) Pulse Ox O2 Delivery O2 Flow Rate FiO2 03/06/17 21:45 98.7 68 18 140/72 (94) 98 Orders Orders Complete Blood Count With Diff (03/06/17 22:19) Comprehensive Metabolic Panel (03/06/17 22:19) Psych Screen (03/06/17 22:19) Drug Screen, Random Urine (03/06/17 22:19) Labs Laboratory Tests Test 03/06/17 22:24 White Blood Count 9.9 TH/MM3 Red Blood Count 3.77 MIL/MM3 Hemoglobin 12.7 GM/DL Hematocrit 37.5 % Mean Corpuscular Volume 99.4 FL Mean Corpuscular Hemoglobin 33.7 PG Mean Corpuscular Hemoglobin Concent 33.9 % Red Cell Distribution Width 14.7 % Platelet Count 114 TH/MM3 Mean Platelet Volume 5.9 FL Neutrophils (%) (Auto) 61.3 % Lymphocytes (%) (Auto) 25.1 % Monocytes (%) (Auto) 11.6 % Eosinophils (%) (Auto) 0.9 % Basophils (%) (Auto) 1.1 % Neutrophils # (Auto) 6.1 TH/MM3 Lymphocytes # (Auto) 2.5 TH/MM3 Monocytes # (Auto) 1.2 TH/MM3 Eosinophils # (Auto) 0.1 TH/MM3 Basophils # (Auto) 0.1 TH/MM3 CBC Comment DIFF FINAL Differential Comment Blood Urea Nitrogen 9 MG/DL Creatinine 0.65 MG/DL Random Glucose 94 MG/DL Total Protein 7.7 GM/DL Albumin 3.6 GM/DL Calcium Level 8.3 MG/DL Alkaline Phosphatase 82 U/L Aspartate Amino Transf (AST/SGOT) 40 U/L Alanine Aminotransferase (ALT/SGPT) 29 U/L Total Bilirubin 0.4 MG/DL Sodium Level 140 MEQ/L Potassium Level 3.0 MEQ/L Chloride Level 105 MEQ/L Carbon Dioxide Level 25.9 MEQ/L Anion Gap 9 MEQ/L Estimat Glomerular Filtration Rate 126 ML/MIN MDM Medical Decision Making Medical Screen Exam Complete: Yes Emergency Medical Condition: Yes Differential Diagnosis Differential diagnosis including substance-induced mood disorder, depression, suicidal, alcohol intoxication. Narrative Course 61-year-old male with history alcohol abuse, feeling suicidal. Scripts No Active Prescriptions or Reported Meds Chaka Barrientos MD Mar 06, 2017 23:25
[2017-03-07 00:34] VITALS: BP 131/71; PULSE 64; RESP 16; O2SAT 98
--- NOTE | 2017-03-07 01:49 | PD ---
Physical Exam Date Seen by Provider: Mar 07, 2017 Time Seen by Provider: 01:47 Narrative For full history and physical examination please see previous provider's note. Data Data Last Documented VS Vital Signs Date Time Temp Pulse Resp B/P (MAP) Pulse Ox O2 Delivery O2 Flow Rate FiO2 03/07/17 00:34 64 16 131/71 (91) 98 Room Air 03/06/17 21:45 98.7 Orders Orders Complete Blood Count With Diff (03/06/17 22:19) Comprehensive Metabolic Panel (03/06/17 22:19) Psych Screen (03/06/17 22:19) Drug Screen, Random Urine (03/06/17 22:19) Alcohol (Ethanol) (03/06/17 23:14) Labs Laboratory Tests Test 03/06/17 22:24 White Blood Count 9.9 TH/MM3 Red Blood Count 3.77 MIL/MM3 Hemoglobin 12.7 GM/DL Hematocrit 37.5 % Mean Corpuscular Volume 99.4 FL Mean Corpuscular Hemoglobin 33.7 PG Mean Corpuscular Hemoglobin Concent 33.9 % Red Cell Distribution Width 14.7 % Platelet Count 114 TH/MM3 Mean Platelet Volume 5.9 FL Neutrophils (%) (Auto) 61.3 % Lymphocytes (%) (Auto) 25.1 % Monocytes (%) (Auto) 11.6 % Eosinophils (%) (Auto) 0.9 % Basophils (%) (Auto) 1.1 % Neutrophils # (Auto) 6.1 TH/MM3 Lymphocytes # (Auto) 2.5 TH/MM3 Monocytes # (Auto) 1.2 TH/MM3 Eosinophils # (Auto) 0.1 TH/MM3 Basophils # (Auto) 0.1 TH/MM3 CBC Comment DIFF FINAL Differential Comment Blood Urea Nitrogen 9 MG/DL Creatinine 0.65 MG/DL Random Glucose 94 MG/DL Total Protein 7.7 GM/DL Albumin 3.6 GM/DL Calcium Level 8.3 MG/DL Alkaline Phosphatase 82 U/L Aspartate Amino Transf (AST/SGOT) 40 U/L Alanine Aminotransferase (ALT/SGPT) 29 U/L Total Bilirubin 0.4 MG/DL Sodium Level 140 MEQ/L Potassium Level 3.0 MEQ/L Chloride Level 105 MEQ/L Carbon Dioxide Level 25.9 MEQ/L Anion Gap 9 MEQ/L Estimat Glomerular Filtration Rate 126 ML/MIN Ethyl Alcohol Level 419 MG/DL [facility] Medical Record Reviewed: Yes Supervised Visit with DIANNE: Yes Interpretation(s) Vital Signs Date Time Temp Pulse Resp B/P (MAP) Pulse Ox O2 Delivery O2 Flow Rate FiO2 03/07/17 00:34 64 16 131/71 (91) 98 Room Air 03/06/17 21:45 98.7 68 18 140/72 (94) 98 Laboratory Tests Test 03/06/17 22:24 White Blood Count 9.9 TH/MM3 Red Blood Count 3.77 MIL/MM3 Hemoglobin 12.7 GM/DL Hematocrit 37.5 % Mean Corpuscular Volume 99.4 FL Mean Corpuscular Hemoglobin 33.7 PG Mean Corpuscular Hemoglobin Concent 33.9 % Red Cell Distribution Width 14.7 % Platelet Count 114 TH/MM3 Mean Platelet Volume 5.9 FL Neutrophils (%) (Auto) 61.3 % Lymphocytes (%) (Auto) 25.1 % Monocytes (%) (Auto) 11.6 % Eosinophils (%) (Auto) 0.9 % Basophils (%) (Auto) 1.1 % Neutrophils # (Auto) 6.1 TH/MM3 Lymphocytes # (Auto) 2.5 TH/MM3 Monocytes # (Auto) 1.2 TH/MM3 Eosinophils # (Auto) 0.1 TH/MM3 Basophils # (Auto) 0.1 TH/MM3 CBC Comment DIFF FINAL Differential Comment Blood Urea Nitrogen 9 MG/DL Creatinine 0.65 MG/DL Random Glucose 94 MG/DL Total Protein 7.7 GM/DL Albumin 3.6 GM/DL Calcium Level 8.3 MG/DL Alkaline Phosphatase 82 U/L Aspartate Amino Transf (AST/SGOT) 40 U/L Alanine Aminotransferase (ALT/SGPT) 29 U/L Total Bilirubin 0.4 MG/DL Sodium Level 140 MEQ/L Potassium Level 3.0 MEQ/L Chloride Level 105 MEQ/L Carbon Dioxide Level 25.9 MEQ/L Anion Gap 9 MEQ/L Estimat Glomerular Filtration Rate 126 ML/MIN Ethyl Alcohol Level 419 MG/DL Narrative Course Patient is a 61-year-old male presenting voluntarily to the emergency department for psychiatric evaluation due to suicidal ideations and alcohol abuse. Patient has been seen and evaluated several times in the emergency department for the same complaint. Labs reviewed, blood alcohol level is 419. Potassium is 3.0. Oral potassium replacement orally ordered. His vital signs are stable. Patient is medically cleared for psychiatric evaluation. Diagnosis Primary Impression: Medical clearance for psychiatric admission Additional Impressions: Alcohol intoxication Qualified Codes: F10.920 - Alcohol use, unspecified with intoxication, uncomplicated Hypokalemia Scripts No Active Prescriptions or Reported Meds Condition: Stable Erica Jean Baptiste Mar 07, 2017 01:49
[2017-03-07] MEDS ORDERED: POTASSIUM CHLORIDE 10 MEQ CONTROLLED RELEASE TAB PO ONE (02:00)
[2017-03-07 07:18] VITALS: BP 103/52; PULSE 60; RESP 19; O2SAT 93
[2017-03-07 08:31] VITALS: BP 137/77; PULSE 88; RESP 17; O2SAT 99
== END 2017-03-07 09:19 | disposition left against medical advice (07) ==
LOC: NEDAMB 21:43 → NEPD 03-07 09:19
DX: F10.129 Alcohol abuse with intoxication, unspecified (principal); E87.6 Hypokalemia; B19.20 Unspecified viral hepatitis C without hepatic coma; I10 Essential (primary) hypertension; I48.91 Unspecified atrial fibrillation; Y90.8 Blood alcohol level of 240 mg/100 ml or more
CPT/HCPCS: 80053; 80307; 85025; 99283

== ENCOUNTER 2017-03-07 12:46 | Emergency (ER) | payer SELFPAY | END 2017-03-07 17:02 | disposition left against medical advice (07) | LOC: NED 12:46 | DX: Z53.21 Procedure and treatment not carried out due to patient leaving prior to being seen by health care provider (principal) | CPT/HCPCS: 99281 ==

== ENCOUNTER 2017-03-08 19:48 | Emergency (ER) | payer OTHER ==
[~2017-03-08] VITALS: Ht 182.9 cm; Wt 73.0 kg
[2017-03-08 20:20] VITALS: BP 138/79; PULSE 79; RESP 16; TEMP 98; O2SAT 98
--- NOTE | 2017-03-08 21:04 | PD ---
HPI Chief Complaint: Psychiatric Symptoms Time Seen by Provider: 20:23 Travel History International Travel<30 days: No Contact w/Intl Traveler<30days: No Traveled to known affect area: No History of Present Illness HPI This is a 61-year-old male who presents to the emergency department but under a Gutierres act for suicidal ideation. Patient has a long history of alcoholism and alcohol-induced mood disorder. Currently he is sober and says he is not having thoughts of killing himself or others. He says he doesn't feel very well because he thinks he might be going into withdrawals. His symptoms are constant , moderate severity, and he describes it as feeling shaky and nauseous. PFSH Past Medical History Atrial Fibrillation: Yes Blood Disorders: Yes (LOW PLATELETS) Anxiety: Yes Depression: Yes Heart Rhythm Problems: No Cancer: No Cardiovascular Problems: Yes (palpitation) High Cholesterol: No Chest Pain: No Congestive Heart Failure: No Cerebrovascular Accident: No Diabetes: No Dialysis: No Diminished Hearing: No Endocrine: No Gastrointestinal Disorders: Yes (Colitis) GERD: No Genitourinary: No Hepatitis: Yes (HEP C) Hiatal Hernia: No Heparin Induced Thrombocytopen: No Hypertension: Yes Immune Disorder: No Implanted Vascular Access Dvce: No Kidney Stones: No Musculoskeletal: No Neurologic: No Psychiatric: No Reproductive: No Respiratory: No Immunizations Current: Yes Migraines: No Renal Failure: No Seizures: Yes Sickle Cell Disease: No Ulcer: No Past Surgical History Abdominal Surgery: No AICD: No Arteriovenous Shunt: No Cardiac Surgery: No Ear Surgery: No Endocrine Surgery: No Eye Surgery: No Genitourinary Surgery: No Gynecologic Surgery: Yes Insulin Pump: No Joint Replacement: No Neurologic Surgery: No Oral Surgery: Yes Pacemaker: No Thoracic Surgery: No Other Surgery: Yes (UNKNOWN BACK SURGERY) Social History Alcohol Use: Yes (DAILY, large quantities for many years. ) Tobacco Use: No Substance Use: Yes (ALCOHOLISM ) Allergies-Medications (Allergen,Severity, Reaction): Coded Allergies: Penicillins (Verified Allergy, Unknown, 03/08/17) pt states he has had it before but not sure why its on his record and family members are allergic to penicillin Reported Meds & Prescriptions Reported Meds & Active Scripts Active No Active Prescriptions or Reported Medications Review of Systems Except as stated in HPI: all other systems reviewed are Neg Physical Exam Narrative GENERAL:Well appearing, no acute distress SKIN: Focused skin assessment warm and dry. HEAD: Atraumatic. Normocephalic. EYES: Pupils equal and round. No injection or drainage. ENT: Moist mucous membranes NECK: Trachea midline. CARDIOVASCULAR: Regular rate and rhythm. No murmur appreciated. RESPIRATORY: Clear to auscultation. Breath sounds equal bilaterally. GASTROINTESTINAL: Abdomen soft, non-tender, nondistended. MUSCULOSKELETAL: No obvious deformities. NEUROLOGICAL: Awake and alert. No obvious cranial nerve deficits. Moving all extremities. PSYCHIATRIC: Appropriate mood and affect; insight and judgment normal. Data Data Last Documented VS Vital Signs Date Time Temp Pulse Resp B/P (MAP) Pulse Ox O2 Delivery O2 Flow Rate FiO2 03/08/17 20:20 98.0 79 16 138/79 (98) 98 MDM Medical Decision Making Medical Screen Exam Complete: Yes Emergency Medical Condition: Yes Interpretation(s) Afebrile, no tachycardia, normotensive Differential Diagnosis Acute alcohol intoxication, alcohol-induced mood disorder, substance abuse Narrative Course This is a 61-year-old male who has a history of alcoholism. He is well known to the emergency department, this being his fourth visit this week and his 11th visit this month for alcohol-related chief complaint. Patient was placed under a Gutierres act for suicidal statements. He frequently make suicidal statements when intoxicated and then recants them when sober. He is certainly adequate inherent risk of adverse event and impulsivity due to his chronic alcoholism but I don't think he meets Gutierres act criteria at this time as he is denying suicidal ideation and his chief presenting symptom is alcohol related. I think patient can be discharged home. Gutierres act was lifted. Diagnosis Primary Impression: Alcohol intoxication Qualified Codes: F10.920 - Alcohol use, unspecified with intoxication, uncomplicated Patient Instructions: General Instructions Additional Instructions: If you have thoughts of hurting herself or others return to the emergency room. Follow up with [facility]ber[facility]cer[facility] in regards to psychiatric or substance related issues at: [address] [place] [id number] Med/Other Pt SpecificInfo: No Change to Meds Scripts No Active Prescriptions or Reported Meds Disposition: 01 DISCHARGE HOME Condition: Stable Diane Mcdonald MD Mar 08, 2017 21:04
[2017-03-09] MEDS ORDERED: BACI500O9 TOPICAL (12:35)
== END 2017-03-08 23:05 | disposition home or self-care (01) ==
LOC: NEPD 19:48
DX: F10.229 Alcohol dependence with intoxication, unspecified (principal); Y90.9 Presence of alcohol in blood, level not specified
CPT/HCPCS: 99283

== ENCOUNTER 2017-03-09 09:59 | Emergency (ER) | payer OTHER ==
[~2017-03-09] VITALS: Ht 180.3 cm; Wt 80.0 kg
[2017-03-09 10:09] VITALS: BP 122/63; PULSE 89; RESP 15; TEMP 98.9; O2SAT 95
[2017-03-09 10:44] LABS: AUTOMATED NEUTROPHIL # 3.4 TH/MM3 (1.8-7.7); BASOPHIL # 0.1 TH/MM3 (0-0.2); BASOPHIL % 1.5 % (0.0-2.0); EOSINOPHIL # 0.1 TH/MM3 (0-0.4); HEMATOCRIT 37.5 % (39.0-51.0); HEMO FLAGS DIFF FINAL; LYMPH % 26.3 % (9.0-44.0); LYMPHOCYTE # 1.5 TH/MM3 (1.0-4.8); MEAN CELL VOLUME 99.1 FL (80.0-100.0); MEAN CORPUSCULAR HEMOGLOBIN 33.7 PG (27.0-34.0); MONO % 11.9 % (0.0-8.0); NEUT % 59.3 % (16.0-70.0); PLATELET COUNT 128 TH/MM3 (150-450); RED BLOOD COUNT 3.78 MIL/MM3 (4.50-5.90); RED CELL DISTRIBUTION WIDTH 14.6 % (11.6-17.2); WHITE BLOOD COUNT 5.7 TH/MM3 (4.0-11.0)
[2017-03-09 11:13] LABS: ANION GAP 9 MEQ/L (5-15); AST (GOT) 58 U/L (15-37); BICARBONATE 24.1 MEQ/L (21.0-32.0); BLOOD UREA NITROGEN 6 MG/DL (7-18); CHLORIDE 105 MEQ/L (98-107); GLOMERULAR FILTRATION RATE 128 ML/MIN (>89); POTASSIUM 3.3 MEQ/L (3.5-5.1); SODIUM (NA) 138 MEQ/L (136-145)
[2017-03-09 11:20] LABS: ALKALINE PHOSPHATASE 86 U/L (45-117); ALT (GPT) 35 U/L (12-78); TOTAL BILIRUBIN ADULT 0.6 MG/DL (0.2-1.0)
[2017-03-09 11:22] LABS: ALCOHOL 441 MG/DL (0-5)
[2017-03-09] MEDS ORDERED: LORazepam 1 MG TAB PO PRN (12:30)
[2017-03-09] MEDS ORDERED: LORazepam 2 MG/ML VIAL IV PUSH PRN ×4 (12:30)
[2017-03-09] MEDS ORDERED: ONDANSETRON ODT 4 MG TAB PO PRN (12:30)
[2017-03-09] MEDS ORDERED: FLUMAZENIL 0.5 MG/5 ML VIAL IV PUSH PRN (12:30)
[2017-03-09] MEDS ORDERED: LORazepam 2 MG TAB PO PRN (12:30)
[2017-03-09] MEDS ORDERED: ACETAMINOPHEN 325 MG TAB PO PRN (12:30)
[2017-03-09] MEDS ORDERED: BACI500O9 TOPICAL (12:35)
--- NOTE | 2017-03-09 12:41 | PD ---
HPI Chief Complaint: Psychiatric Symptoms Time Seen by Provider: 12:19 Travel History International Travel<30 days: No Contact w/Intl Traveler<30days: No Traveled to known affect area: No History of Present Illness HPI 61-year-old male that presents to the ED for evaluation of psychiatric evaluation. Patient was Gutierres acted by police after apparently he went to a store and told that he wanted to hurt himself. Patient has a History of substance abuse including alcohol has been here multiple times for same. Patient had bulbar before I went to see the patient and his blood work show elevated alcohol in the 400s. His been somewhat uncooperative with staff and he keeps walking out of the ER. He saw was found by police and brought back here. Patient denies any homicidal ideation. He does still feeling suicidal and wants help with his alcohol. He has been here multiple times for same. This is patient's 10th time here this month alone. He has an allergy to penicillin. Denies any fevers chills or sweats. Patient for the most part is a poor historian secondary to his intoxication. He states that he has hep C. No other medical issues at this time. PFSH Past Medical History Atrial Fibrillation: Yes Blood Disorders: Yes (LOW PLATELETS) Anxiety: Yes Depression: Yes Heart Rhythm Problems: No Cancer: No Cardiovascular Problems: Yes (palpitation) High Cholesterol: No Chest Pain: No Congestive Heart Failure: No Cerebrovascular Accident: No Diabetes: No Dialysis: No Diminished Hearing: No Endocrine: No Gastrointestinal Disorders: Yes (Colitis) GERD: No Genitourinary: No Hepatitis: Yes (HEP C) Hiatal Hernia: No Heparin Induced Thrombocytopen: No Hypertension: Yes Immune Disorder: No Implanted Vascular Access Dvce: No Kidney Stones: No Musculoskeletal: No Neurologic: No Psychiatric: No Reproductive: No Respiratory: No Immunizations Current: Yes Migraines: No Renal Failure: No Seizures: Yes Sickle Cell Disease: No Ulcer: No Past Surgical History Abdominal Surgery: No AICD: No Arteriovenous Shunt: No Cardiac Surgery: No Ear Surgery: No Endocrine Surgery: No Eye Surgery: No Genitourinary Surgery: No Gynecologic Surgery: Yes Insulin Pump: No Joint Replacement: No Neurologic Surgery: No Oral Surgery: Yes Pacemaker: No Thoracic Surgery: No Other Surgery: Yes (UNKNOWN BACK SURGERY) Social History Alcohol Use: Yes (DAILY, large quantities for many years. ) Tobacco Use: No Substance Use: Yes (ALCOHOLISM ) Allergies-Medications (Allergen,Severity, Reaction): Coded Allergies: Penicillins (Verified Allergy, Unknown, 03/08/17) pt states he has had it before but not sure why its on his record and family members are allergic to penicillin Reported Meds & Prescriptions Reported Meds & Active Scripts Active Bacitracin Topical 500 Unit/Gm Oint 1 Applic TOPICAL BID 10 Days Review of Systems ROS Limitations: Intoxication Except as stated in HPI: all other systems reviewed are Neg Physical Exam Exam Limitations: Intoxication Narrative GENERAL: SKIN: Warm and dry. Patient has pustules on the left arm. Appears to be both bites. Some of them appear to be infected with some erythema. Nontender. Pruritic. HEAD: Atraumatic. Normocephalic. EYES: Pupils equal and round. No scleral icterus. No injection or drainage. ENT: No nasal bleeding or discharge. Mucous membranes pink and moist. NECK: Trachea midline. No JVD. CARDIOVASCULAR: Regular rate and rhythm. No murmurs, S3, S4. RESPIRATORY: No accessory muscle use. Clear to auscultation. Breath sounds equal bilaterally. GASTROINTESTINAL: Abdomen soft, non-tender, nondistended. Hepatic and splenic margins not palpable. MUSCULOSKELETAL: Extremities without clubbing, cyanosis, or edema. No obvious deformities. Full range of motion of the upper and lower extremities bilaterally. 2+ pulses bilaterally. NEUROLOGICAL: Awake and alert. No obvious cranial nerve deficits. Motor grossly within normal limits. Five out of 5 muscle strength in the arms and legs. Normal speech. PSYCHIATRIC: Intoxicated mood and affect; insight and judgment normal. Data Data Last Documented VS Vital Signs Date Time Temp Pulse Resp B/P (MAP) Pulse Ox O2 Delivery O2 Flow Rate FiO2 03/09/17 10:09 98.9 89 15 122/63 (82) 95 Orders Orders Complete Blood Count With Diff (03/09/17 10:15) Comprehensive Metabolic Panel (03/09/17 10:15) Psych Screen (03/09/17 10:15) Drug Screen, Random Urine (03/09/17 10:15) Alcohol (Ethanol) (03/09/17 10:15) Alcohol Withdrawal Asmt-Ciwa ONCE (03/09/17 12:27) Ondansetron Odt (Zofran Odt) (03/09/17 12:30) Acetaminophen (Tylenol) (03/09/17 12:30) Flumazenil Inj (Romazicon Inj) (03/09/17 12:30) Lorazepam (Ativan) (03/09/17 12:30) Lorazepam Inj (Ativan Inj) (03/09/17 12:30) Lorazepam (Ativan) (03/09/17 12:30) Lorazepam Inj (Ativan Inj) (03/09/17 12:30) Lorazepam Inj (Ativan Inj) (03/09/17 12:30) Lorazepam Inj (Ativan Inj) (03/09/17 12:30) Ed Discharge Order (03/09/17 15:23) Labs Laboratory Tests Test 03/09/17 10:20 White Blood Count 5.7 TH/MM3 Red Blood Count 3.78 MIL/MM3 Hemoglobin 12.7 GM/DL Hematocrit 37.5 % Mean Corpuscular Volume 99.1 FL Mean Corpuscular Hemoglobin 33.7 PG Mean Corpuscular Hemoglobin Concent 34.0 % Red Cell Distribution Width 14.6 % Platelet Count 128 TH/MM3 Mean Platelet Volume 6.2 FL Neutrophils (%) (Auto) 59.3 % Lymphocytes (%) (Auto) 26.3 % Monocytes (%) (Auto) 11.9 % Eosinophils (%) (Auto) 1.0 % Basophils (%) (Auto) 1.5 % Neutrophils # (Auto) 3.4 TH/MM3 Lymphocytes # (Auto) 1.5 TH/MM3 Monocytes # (Auto) 0.7 TH/MM3 Eosinophils # (Auto) 0.1 TH/MM3 Basophils # (Auto) 0.1 TH/MM3 CBC Comment DIFF FINAL Differential Comment Blood Urea Nitrogen 6 MG/DL Creatinine 0.64 MG/DL Random Glucose 103 MG/DL Total Protein 7.4 GM/DL Albumin 3.5 GM/DL Calcium Level 8.2 MG/DL Alkaline Phosphatase 86 U/L Aspartate Amino Transf (AST/SGOT) 58 U/L Alanine Aminotransferase (ALT/SGPT) 35 U/L Total Bilirubin 0.6 MG/DL Sodium Level 138 MEQ/L Potassium Level 3.3 MEQ/L Chloride Level 105 MEQ/L Carbon Dioxide Level 24.1 MEQ/L Anion Gap 9 MEQ/L Estimat Glomerular Filtration Rate 128 ML/MIN Ethyl Alcohol Level 441 MG/DL MDM Medical Decision Making Medical Screen Exam Complete: Yes Emergency Medical Condition: Yes Medical Record Reviewed: Yes Interpretation(s) CBC & BMP Diagram 03/09/17 10:20 Total Protein 7.4, Albumin 3.5, Calcium Level 8.2 L, Alkaline Phosphatase 86, Aspartate Amino Transf (AST/SGOT) 58 H, Alanine Aminotransferase (ALT/SGPT) 35, Total Bilirubin 0.6 alcohol in the 400s Differential Diagnosis Depression versus suicidal ideation versus anxiety versus adjustment disorder versus mood disorder versus bipolar disorder versus schizophrenia versus paranoid disorder versus psychosis versus substance abuse versus alcohol abuse versus alcohol induced psychosis versus homicidality addition versus cutting versus personality disorder versus alcoholism Narrative Course 61-year-old male that presents to the ED for evaluation of Gutierres act. Patient was properly examined and was found to have signs and symptoms consistent with appears to be alcohol intoxication with psychiatric illness. No sign of acute medical distress. Before I went to see the patient patient already had protocols done and show an alcohol in the 400s. Otherwise unremarkable. CIWA was ordered by me. Patient was medically cleared. Okay to be seen by psych. Mental health screening was discussed with the patient. Dr Barrientos lifted the BA. Patient was discharged with instructions to follow up with [facility] or outpatient rehab. Given prescription for bactroban for folliculitis. She will be allowed to sleep off his intoxication until medically sober to be able to be discharged. ED nurse aware of this and will dispo when patient is ready. See ED if worst. Diagnosis Primary Impression: Substance induced mood disorder Additional Impression: Folliculitis Patient Instructions: General Instructions Additional Instructions: Stop drinking alcohol. See ED if worst. Med/Other Pt SpecificInfo: Prescription(s) given Scripts Bacitracin Topical (Bacitracin Topical) 500 Unit/Gm Oint 1 APPLIC TOPICAL BID for Infection for 10 Days, #30 GM 0 Refills Prov: Evangelista Coon MD 03/09/17 Disposition: 01 DISCHARGE HOME Condition: Stable Corey Reynoso Mar 09, 2017 12:41
== END 2017-03-09 16:34 | disposition home or self-care (01) ==
LOC: NEDAMB 09:59
DX: F10.129 Alcohol abuse with intoxication, unspecified (principal); Y90.8 Blood alcohol level of 240 mg/100 ml or more; L73.9 Follicular disorder, unspecified
CPT/HCPCS: 80053; 80307; 85025; 99283

== ENCOUNTER 2017-03-21 17:46 | Emergency (ER) | payer SELFPAY ==
[~2017-03-21 17:46] MED LIST changes: +BACI500O9 TOPICAL; -CHLO25CA9 PO
[2017-03-21 18:15] VITALS: BP 137/74; PULSE 90; RESP 18; TEMP 99.2; O2SAT 96
[2017-03-21 18:34] VITALS: BP 137/74; PULSE 90; RESP 18; TEMP 99.2; O2SAT 96
--- NOTE | 2017-03-21 18:50 | PD ---
HPI Chief Complaint: Alcohol/Drug Intoxication Time Seen by Provider: 18:18 Travel History International Travel<30 days: No Contact w/Intl Traveler<30days: No History of Present Illness HPI 61-year-old male arrives via EMS after bystanders called an ambulance because he was found passed out under a palm tree. The patient is easily arousable. He smells of EtOH. He says he fell and hit his head and lost consciousness. He also told me that he is taking Plavix for a blood clot in his shoulder. He does have history of hepatitis C. Patient has no current medical complaints. He says all he wants to do is detoxed from drinking alcohol. No known relieving or aggravating factors. Allergies to penicillin. No other modifying factors or associated signs and symptoms. PFSH Past Medical History Atrial Fibrillation: Yes Blood Disorders: Yes (LOW PLATELETS) Anxiety: Yes Depression: Yes Heart Rhythm Problems: No Cancer: No Cardiovascular Problems: Yes (palpitation) High Cholesterol: No Chest Pain: No Congestive Heart Failure: No Cerebrovascular Accident: No Diabetes: No Dialysis: No Diminished Hearing: No Endocrine: No Gastrointestinal Disorders: Yes (Colitis) GERD: No Genitourinary: No Hepatitis: Yes (HEP C) Hiatal Hernia: No Heparin Induced Thrombocytopen: No Hypertension: Yes Immune Disorder: No Implanted Vascular Access Dvce: No Kidney Stones: No Musculoskeletal: No Neurologic: No Psychiatric: No Reproductive: No Respiratory: No Immunizations Current: Yes Migraines: No Renal Failure: No Seizures: Yes Sickle Cell Disease: No Ulcer: No ?: Not Past Surgical History Abdominal Surgery: No AICD: No Arteriovenous Shunt: No Cardiac Surgery: No Ear Surgery: No Endocrine Surgery: No Eye Surgery: No Genitourinary Surgery: No Gynecologic Surgery: Yes Insulin Pump: No Joint Replacement: No Neurologic Surgery: No Oral Surgery: Yes Pacemaker: No Thoracic Surgery: No Other Surgery: Yes (UNKNOWN BACK SURGERY) Social History Alcohol Use: Yes (DAILY, large quantities for many years. ) Tobacco Use: No Substance Use: Yes (ALCOHOLISM ) Allergies-Medications (Allergen,Severity, Reaction): Coded Allergies: Penicillins (Verified Allergy, Unknown, 03/21/17) pt states he has had it before but not sure why its on his record and family members are allergic to penicillin Reported Meds & Prescriptions Reported Meds & Active Scripts Active Bacitracin Topical 500 Unit/Gm Oint 1 Applic TOPICAL BID 10 Days Review of Systems Except as stated in HPI: all other systems reviewed are Neg Physical Exam Narrative GENERAL: Thin, male patient, in no acute distress; disheveled, smells of EtOH SKIN: Warm and dry. HEAD: Atraumatic. Normocephalic. EYES: Pupils equal and round. ENT: Mucosa pink and moist. NECK: Supple. Trachea midline. CARDIOVASCULAR: Regular rate and rhythm. No murmur appreciated. RESPIRATORY: No accessory muscle use. Clear to auscultation. Breath sounds equal bilaterally. GASTROINTESTINAL: Abdomen soft, non-tender, nondistended. Hepatic and splenic margins not palpable. Bowel sounds are active 4 quadrants. MUSCULOSKELETAL: No obvious deformities. No clubbing. No cyanosis. No edema. NEUROLOGICAL: Easily arousable. Awake and alert. Oriented 3. No obvious cranial nerve deficits. Motor grossly within normal limits. Normal speech. Moves all extremities. 5/5 strength to all extremities. PSYCHIATRIC: No delusional thought processes. No hallucinations. Data Data Last Documented VS Vital Signs Date Time Temp Pulse Resp B/P (MAP) Pulse Ox O2 Delivery O2 Flow Rate FiO2 03/21/17 18:34 99.2 90 18 137/74 (95) 96 Room Air Orders Orders Ct Brain W/O Iv Contrast(Rout) (03/21/17 ) Alcohol (Ethanol) (03/21/17 18:48) MDM Medical Decision Making Medical Screen Exam Complete: Yes Emergency Medical Condition: Yes Medical Record Reviewed: Yes Differential Diagnosis Alcohol intoxication, alcohol abuse, alcohol dependency Narrative Course 61-year-old male that is well-known to the emergency department with history of alcohol dependence, alcohol abuse and alcohol intoxication. He was here March 19, 2017 under Gutierres act and had labs drawn at that time; CBC and CMP were unremarkable. I do not feel that it is necessary to draw labs again at this time. Patient says he fell and hit his head and lost consciousness. CT head ordered. EtOH ordered. 1940: CT head unremarkable. Patient will be given time to sleep. He will be reevaluated later time and discharged when clinically sober. Diagnosis Primary Impression: Alcohol intoxication Qualified Codes: F10.920 - Alcohol use, unspecified with intoxication, uncomplicated Referrals: [facility] (Out patient) [facility] Primary Care Physician [facility] Patient Instructions: Abuse of Alcohol (ED), Alcohol Dependence (ED), Alcohol Intoxication (ED), General Instructions Additional Instructions: Stop drinking alcohol Follow-up with primary care provider Follow-up with An[facility] Return to the emergency department immediately with worsening of symptoms Med/Other Pt SpecificInfo: No Change to Meds, No Meds Exist/No RX given Disposition: 01 DISCHARGE HOME Condition: Stable Vangie Campoverde [facility] Mar 21, 2017 18:50
--- NOTE | 2017-03-21 19:36 | RADRPT ---
EXAM DATE/TIME: 03/21/2017 19:21 [facility] COMPARISON: CT BRAIN W/O CONTRAST, February 14, 2017, 21:14. INDICATIONS : Altered mental status; ETOH. RADIATION DOSE: 31.92 CTDIvol (mGy) MEDICAL HISTORY : Hepatitis C. Hypertension. Cardiovascular diseaseSeizures SURGICAL HISTORY : None. ENCOUNTER: Initial ACUITY: 1 day PAIN SCALE: Non-responsive LOCATION: cranial TECHNIQUE: Multiple contiguous axial images were obtained of the head. Using automated exposure control and adj ustment of the mA and/or kV according to patient size, radiation dose was kept as low as reasonably a chievable to obtain optimal diagnostic quality images. DICOM format image data is available electro nically for review and comparison. FINDINGS: CEREBRUM: The ventricles are normal for age. No evidence of midline shift, mass lesion, hemorrhage or acute in farction. No extra-axial fluid collections are seen. POSTERIOR FOSSA: The cerebellum and brainstem are intact. The 4th ventricle is midline. The cerebellopontine angle i s unremarkable. EXTRACRANIAL: The visualized portion of the orbits is intact. SKULL: The calvaria is intact. No evidence of skull fracture. CONCLUSION: Unremarkable exam. Wellington Alcaraz MD on March 21, 2017 at 19:34 Board Certified Radiologist. This report was verified electronically.
[2017-03-21 20:00] VITALS: BP 100/55; PULSE 84; RESP 20; O2SAT 97
[2017-03-22 06:43] VITALS: BP 102/58; PULSE 68; RESP 18; O2SAT 97
== END 2017-03-22 06:53 | disposition home or self-care (01) ==
LOC: NEPD 17:46
DX: F10.920 Alcohol use, unspecified with intoxication, uncomplicated (principal); Y90.8 Blood alcohol level of 240 mg/100 ml or more; I10 Essential (primary) hypertension; I48.1 Persistent atrial fibrillation; D69.6 Thrombocytopenia, unspecified; F41.9 Anxiety disorder, unspecified; F32.9 Major depressive disorder, single episode, unspecified; B19.20 Unspecified viral hepatitis C without hepatic coma
CPT/HCPCS: 70450; 80307

== ENCOUNTER 2017-03-22 13:52 | Emergency (ER) | payer OTHER ==
[~2017-03-22] VITALS: Ht 182.9 cm; Wt 72.5 kg
[2017-03-22 14:12] VITALS: BP 113/59; PULSE 90; RESP 19; TEMP 98.4; O2SAT 94
--- NOTE | 2017-03-22 14:12 | PD ---
HPI Chief Complaint: Psychiatric Symptoms Time Seen by Provider: 14:10 Travel History International Travel<30 days: No Contact w/Intl Traveler<30days: No Traveled to known affect area: No History of Present Illness HPI This is a 61-year-old male that is well known to our emergency department and been seen here with multiple visits over the past few months. I just saw this patient yesterday after being brought in for alcohol intoxication. The patient is brought in under Gutierres act today and per law enforcement report the officer was "contacted in reference to a Diabeto call. Upon contact him and stated that he was very depressed because of his substance abuse issues and he felt like harming himself. Mom and stated that he is tired of being like this and wanted it to end. Abdomen was Gutierres acted." Patient is easily arousable. He denies having any alcohol today. He says he did make a statement that he wanted things to end, but he denies being suicidal and does not have a plan. Has no current medical complaints. Denies chest pain, shortness breath, abdominal pain, vomiting, fever, change in stool or urine. No known aggravating or relieving factors. Allergies to penicillins. No other modifying factors or associated signs and symptoms. PFSH Past Medical History Atrial Fibrillation: Yes Blood Disorders: Yes (LOW PLATELETS) Anxiety: Yes Depression: Yes Heart Rhythm Problems: No Cancer: No Cardiovascular Problems: Yes (palpitation) High Cholesterol: No Chest Pain: No Congestive Heart Failure: No Cerebrovascular Accident: No Diabetes: No Dialysis: No Diminished Hearing: No Endocrine: No Gastrointestinal Disorders: Yes (Colitis) GERD: No Genitourinary: No Hepatitis: Yes (HEP C) Hiatal Hernia: No Heparin Induced Thrombocytopen: No Hypertension: Yes Immune Disorder: No Implanted Vascular Access Dvce: No Kidney Stones: No Musculoskeletal: No Neurologic: No Psychiatric: No Reproductive: No Respiratory: No Immunizations Current: Yes Migraines: No Renal Failure: No Seizures: Yes Sickle Cell Disease: No Ulcer: No Past Surgical History Abdominal Surgery: No AICD: No Arteriovenous Shunt: No Cardiac Surgery: No Ear Surgery: No Endocrine Surgery: No Eye Surgery: No Genitourinary Surgery: No Gynecologic Surgery: Yes Insulin Pump: No Joint Replacement: No Neurologic Surgery: No Oral Surgery: Yes Pacemaker: No Thoracic Surgery: No Other Surgery: Yes (UNKNOWN BACK SURGERY) Social History Alcohol Use: Yes (DAILY, large quantities for many years. ) Tobacco Use: No Substance Use: Yes (ALCOHOLISM ) Allergies-Medications (Allergen,Severity, Reaction): Coded Allergies: Penicillins (Verified Allergy, Unknown, 03/22/17) pt states he has had it before but not sure why its on his record and family members are allergic to penicillin Reported Meds & Prescriptions Reported Meds & Active Scripts Active Bacitracin Topical 500 Unit/Gm Oint 1 Applic TOPICAL BID 10 Days Review of Systems Except as stated in HPI: all other systems reviewed are Neg Physical Exam Narrative GENERAL: Thin, male patient, in no acute distress; disheveled and foul smelling; smells of urine SKIN: Warm and dry. HEAD: Atraumatic. Normocephalic. EYES: Pupils equal and round. ENT: Mucosa pink and moist. NECK: Supple. Trachea midline. CARDIOVASCULAR: Regular rate and rhythm. No murmur appreciated. RESPIRATORY: No accessory muscle use. Clear to auscultation. Breath sounds equal bilaterally. GASTROINTESTINAL: Abdomen soft, non-tender, nondistended. Hepatic and splenic margins not palpable. Bowel sounds are active 4 quadrants. MUSCULOSKELETAL: No obvious deformities. No clubbing. No cyanosis. No edema. NEUROLOGICAL: Awake and alert. Oriented 3. No obvious cranial nerve deficits. Motor grossly within normal limits. Normal speech. Moves all extremities. 5/5 strength to all extremities. PSYCHIATRIC: No delusional thought processes. No hallucinations. Data Data Last Documented VS Vital Signs Date Time Temp Pulse Resp B/P (MAP) Pulse Ox O2 Delivery O2 Flow Rate FiO2 03/22/17 18:20 70 15 115/64 (81) 100 Room Air 03/22/17 14:12 98.4 Orders Orders Complete Blood Count With Diff (03/22/17 14:10) Comprehensive Metabolic Panel (03/22/17 14:10) Psych Screen (03/22/17 14:10) Drug Screen, Random Urine (03/22/17 14:10) Alcohol (Ethanol) (03/22/17 14:10) Salicylates (Aspirin) (03/22/17 14:10) Tylenol (Acetaminophen) (03/22/17 14:10) Sodium Chlor 0.45% 1000 Ml Inj (/2 Ns 1 (03/22/17 17:15) Labs Laboratory Tests Test 03/22/17 14:35 03/22/17 17:45 White Blood Count 6.9 TH/MM3 Red Blood Count 3.89 MIL/MM3 Hemoglobin 12.8 GM/DL Hematocrit 38.7 % Mean Corpuscular Volume 99.5 FL Mean Corpuscular Hemoglobin 32.9 PG Mean Corpuscular Hemoglobin Concent 33.1 % Red Cell Distribution Width 14.8 % Platelet Count 220 TH/MM3 Mean Platelet Volume 6.8 FL Neutrophils (%) (Auto) 60.9 % Lymphocytes (%) (Auto) 28.1 % Monocytes (%) (Auto) 9.5 % Eosinophils (%) (Auto) 0.3 % Basophils (%) (Auto) 1.2 % Neutrophils # (Auto) 4.2 TH/MM3 Lymphocytes # (Auto) 2.0 TH/MM3 Monocytes # (Auto) 0.7 TH/MM3 Eosinophils # (Auto) 0.0 TH/MM3 Basophils # (Auto) 0.1 TH/MM3 CBC Comment DIFF FINAL Differential Comment Blood Urea Nitrogen 8 MG/DL Creatinine 0.87 MG/DL Random Glucose 82 MG/DL Total Protein 7.7 GM/DL Albumin 3.5 GM/DL Calcium Level 7.9 MG/DL Alkaline Phosphatase 104 U/L Aspartate Amino Transf (AST/SGOT) 54 U/L Alanine Aminotransferase (ALT/SGPT) 44 U/L Total Bilirubin 0.3 MG/DL Sodium Level 150 MEQ/L Potassium Level 3.7 MEQ/L Chloride Level 113 MEQ/L Carbon Dioxide Level 25.5 MEQ/L Anion Gap 12 MEQ/L Estimat Glomerular Filtration Rate 90 ML/MIN Salicylates Level LESS THAN 1.7 MG/DL Acetaminophen Level LESS THAN 2.0 MCG/ML Ethyl Alcohol Level 422 MG/DL Urine Opiates Screen NEG Urine Barbiturates Screen NEG Urine Amphetamines Screen NEG Urine Benzodiazepines Screen POS Urine Cocaine Screen NEG Urine Cannabinoids Screen NEG MDM Medical Decision Making Medical Screen Exam Complete: Yes Emergency Medical Condition: Yes Medical Record Reviewed: Yes Differential Diagnosis Alcohol intoxication, alcohol abuse, alcohol dependency medical clearance for psych evaluation, suicidal ideation Narrative Course Patient presents under a Gutierres act. Physical examination and vital signs are essentially unremarkable. Patient has no medical complaints to report. Psych screen has been ordered. If the laboratory results are unremarkable, the patient will be medically cleared for psychiatric evaluation and disposition. 2013: Kasey, T[employer] CASTING MACHINE OPERATOR has evaluated the patient, lifted the Gutierres act and cleared the patient for discharge. Patient says he has plan to follow up in [facility] for detox. He says he has recently made contact with his daughter. Patient contracts safety. Denies suicidal or homicidal ideations. Patient will be provided community resource packet to [facility] for follow-up. Has friends and family for support. Patient is medically cleared for discharge. Diagnosis Primary Impression: Alcohol intoxication Qualified Codes: F10.920 - Alcohol use, unspecified with intoxication, uncomplicated Additional Impressions: alcohol dependency Alcohol abuse Referrals: MATHIEU (Out patient) [facility] Primary Care Physician Psychiatrist Ronel MURDOCK Behavioral Patient Instructions: Abuse of Alcohol (ED), Alcohol Dependence (ED), Alcohol Intoxication (ED), General Instructions Additional Instructions: Contract safety to your self and others Stop drinking alcohol Follow-up with psychiatry Follow-up with primary care provider Follow-up with Anival Abernathy Return to the emergency department immediately with worsening of symptoms Med/Other Pt SpecificInfo: No Change to Meds, No Meds Exist/No RX given Disposition: 01 DISCHARGE HOME Condition: Stable Vangie Campoverde Mar 22, 2017 14:12
[2017-03-22 15:22] LABS: AUTOMATED NEUTROPHIL # 4.2 TH/MM3 (1.8-7.7); BASOPHIL # 0.1 TH/MM3 (0-0.2); BASOPHIL % 1.2 % (0.0-2.0); EOSINOPHIL % 0.3 % (0.0-4.0); HEMATOCRIT 38.7 % (39.0-51.0); HEMO FLAGS DIFF FINAL; LYMPH % 28.1 % (9.0-44.0); MEAN CELL VOLUME 99.5 FL (80.0-100.0); MEAN CORPUSCULAR HEMOGLOBIN 32.9 PG (27.0-34.0); MEAN CORPUSCULAR HGB CONC 33.1 % (32.0-36.0); MONO % 9.5 % (0.0-8.0); NEUT % 60.9 % (16.0-70.0); PLATELET COUNT 220 TH/MM3 (150-450); RED BLOOD COUNT 3.89 MIL/MM3 (4.50-5.90); RED CELL DISTRIBUTION WIDTH 14.8 % (11.6-17.2); WHITE BLOOD COUNT 6.9 TH/MM3 (4.0-11.0)
[2017-03-22 15:30] LABS: ALT (GPT) 44 U/L (12-78); ANION GAP 12 MEQ/L (5-15); AST (GOT) 54 U/L (15-37); BICARBONATE 25.5 MEQ/L (21.0-32.0); BLOOD UREA NITROGEN 8 MG/DL (7-18); CHLORIDE 113 MEQ/L (98-107); GLOMERULAR FILTRATION RATE 90 ML/MIN (>89); POTASSIUM 3.7 MEQ/L (3.5-5.1); SODIUM (NA) 150 MEQ/L (136-145)
[2017-03-22 15:33] LABS: ALKALINE PHOSPHATASE 104 U/L (45-117); TOTAL BILIRUBIN ADULT 0.3 MG/DL (0.2-1.0)
[2017-03-22 15:43] LABS: ACETAMINOPHEN LESS THAN 2.0 MCG/ML (10.0-30.0); ALCOHOL 422 MG/DL (0-5)
[2017-03-22] MEDS ORDERED: SODIUM CHLOR 0.45% 1000 ML INJ 1,000 ML IV ONE (17:15)
[2017-03-22 18:20] VITALS: BP 115/64; PULSE 70; RESP 15; O2SAT 100
--- NOTE | 2017-03-22 20:27 | PD ---
History of Present Illness Chief Complaint: Psychiatric Symptoms Time Seen by Provider: 20:00 Travel History International Travel<30 Days: No Contact w/Intl Traveler<30days: No Known affected area: No Legal Status Legal Status: Gutierres Act Gutierres Act Signed By: Keysha Fermin History of Present Illness: History of Present Illness This is a 61-year-old male with history of alcohol dependence that is well known to our emergency department and been seen here w multiple visits over the past few months who presents under a Gutierres act initiated by IRIS alleging that they were contacted in reference to someone trespassing and when they contacted him he reported that he was depressed and that he was tired and wanted it to end. He was intoxicated with a BAL of 422 on arrival to ED. The patient is seen once he is clinically sober. he is alert and cam. Speech is clear and logical. He denies any suicidal or homicidal ideation and states that he is planning on going to [place] to a [facility] residential facility to receive treatment for his alcohol dependence. He tells me that he is ready to seek treatment and that he is happy he saw his step daughter recently who gave him the address of his and his daughter. He has a grandson now and wants to begin to work on his sobriety. PFSH Past Medical History Atrial Fibrillation: Yes Blood Disorders: Yes (LOW PLATELETS) Anxiety: Yes Depression: Yes Heart Rhythm Problems: No Cancer: No Cardiovascular Problems: Yes (palpitation) High Cholesterol: No Chest Pain: No Congestive Heart Failure: No Cerebrovascular Accident: No Diabetes: No Dialysis: No Diminished Hearing: No Endocrine: No Gastrointestinal Disorders: Yes (Colitis) GERD: No Genitourinary: No Hepatitis: Yes (HEP C) Hiatal Hernia: No Heparin Induced Thrombocytopen: No Hypertension: Yes Immune Disorder: No Implanted Vascular Access Dvce: No Kidney Stones: No Musculoskeletal: No Neurologic: No Psychiatric: No Reproductive: No Respiratory: No Immunizations Current: Yes Migraines: No Renal Failure: No Seizures: Yes Sickle Cell Disease: No Ulcer: No Past Surgical History Abdominal Surgery: No AICD: No Arteriovenous Shunt: No Cardiac Surgery: No Ear Surgery: No Endocrine Surgery: No Eye Surgery: No Genitourinary Surgery: No Gynecologic Surgery: Yes Insulin Pump: No Joint Replacement: No Neurologic Surgery: No Oral Surgery: Yes Pacemaker: No Thoracic Surgery: No Other Surgery: Yes (UNKNOWN BACK SURGERY) Psychiatric History Psychiatric History Hx Psychiatric Treatment: NUMEROUS GUTIERRES ACTS as well as ED visits for suicidal ideation while intoxicated. This physician finds the patient extremely manipulative. History of Inpatient Treatment: Yes Guns or firearms in home: No Social History , homeless male. Hx Alcohol Use: Yes (DAILY, large quantities for many years. ) Hx Tobacco Use: No Hx Substance Use: Yes (ALCOHOLISM ) Substance Use Type: Alcohol Other Substances Used: STARTED DRINKING AT AGE 14. SPENT 8 YRS "DRY" AND THEN "IT GOT BORING" Hx of Substance Use Treatment: Yes Family Psychiatric History Negative Allergies-Medications (Allergen,Severity, Reaction): Coded Allergies: Penicillins (Verified Allergy, Unknown, 03/22/17) pt states he has had it before but not sure why its on his record and family members are allergic to penicillin Reported Meds & Prescriptions Reported Meds & Active Scripts Active Bacitracin Topical 500 Unit/Gm Oint 1 Applic TOPICAL BID 10 Days Review of Systems Except as stated in HPI: all other systems reviewed are Neg Mental Status Examination Appearance: Disheveled Consciousness: Alert Orientation: x4 Motor Activity: Other (patietn in bed.) Speech: Unremarkable Language: Adequate Fund of Knowledge: Adequate Attention and Concentration: Adequate Memory: Unremarkable Mood: Appropriate Affect: Appropriate Thought Process & Associations: Intact Thought Content: Appropriate Hallucination Type: None Delusion Type: None Suicidal Ideation: No Suicidal Plan: No Suicidal Intention: No Homicidal Ideation: No Homicidal Plan: No Homicidal Intention: No Insight: Adequate Judgment: Adequate MDM Medical Decision Making Medical Record Reviewed: Yes Assessment/Plan This is a 61-year-old male with history of alcohol dependence that is well known to our emergency department and been seen here w multiple visits over the past few months who presents under a Gutierres act initiated by IRIS alleging that they were contacted in reference to someone trespassing and when they contacted him he reported that he was depressed and that he was tired and wanted it to end. He was intoxicated with a BAL of 422 on arrival to ED. Once clinically sober he denies any suicidal or homicidal ideation, intent or plan. he is future oriented and has plans on seeking admission to a [facility] residential treatment center in [place]. The patient does not meet gutierres act criteria. The BA is lifted. Psychiatrically clear for discharge once he is medically cleared. Orders Orders Complete Blood Count With Diff (03/22/17 14:10) Comprehensive Metabolic Panel (03/22/17 14:10) Psych Screen (03/22/17 14:10) Drug Screen, Random Urine (03/22/17 14:10) Alcohol (Ethanol) (03/22/17 14:10) Salicylates (Aspirin) (03/22/17 14:10) Tylenol (Acetaminophen) (03/22/17 14:10) Sodium Chlor 0.45% 1000 Ml Inj (05/22 Ns 1 (03/22/17 17:15) Results Vital Signs Date Time Temp Pulse Resp B/P (MAP) Pulse Ox O2 Delivery O2 Flow Rate FiO2 03/22/17 18:20 70 15 115/64 (81) 100 Room Air 03/22/17 14:12 98.4 90 19 113/59 (77) 94 Room Air 03/22/17 14:12 19 Laboratory Tests Test 03/22/17 14:35 03/22/17 17:45 White Blood Count 6.9 Red Blood Count 3.89 Hemoglobin 12.8 Hematocrit 38.7 Mean Corpuscular Volume 99.5 Mean Corpuscular Hemoglobin 32.9 Mean Corpuscular Hemoglobin Concent 33.1 Red Cell Distribution Width 14.8 Platelet Count 220 Mean Platelet Volume 6.8 Neutrophils (%) (Auto) 60.9 Lymphocytes (%) (Auto) 28.1 Monocytes (%) (Auto) 9.5 Eosinophils (%) (Auto) 0.3 Basophils (%) (Auto) 1.2 Neutrophils # (Auto) 4.2 Lymphocytes # (Auto) 2.0 Monocytes # (Auto) 0.7 Eosinophils # (Auto) 0.0 Basophils # (Auto) 0.1 CBC Comment DIFF FINAL Differential Comment Blood Urea Nitrogen 8 Creatinine 0.87 Random Glucose 82 Total Protein 7.7 Albumin 3.5 Calcium Level 7.9 Alkaline Phosphatase 104 Aspartate Amino Transf (AST/SGOT) 54 Alanine Aminotransferase (ALT/SGPT) 44 Total Bilirubin 0.3 Sodium Level 150 Potassium Level 3.7 Chloride Level 113 Carbon Dioxide Level 25.5 Anion Gap 12 Estimat Glomerular Filtration Rate 90 Salicylates Level LESS THAN 1.7 Acetaminophen Level LESS THAN 2.0 Ethyl Alcohol Level 422 Urine Opiates Screen NEG Urine Barbiturates Screen NEG Urine Amphetamines Screen NEG Urine Benzodiazepines Screen POS Urine Cocaine Screen NEG Urine Cannabinoids Screen NEG Diagnosis Primary Impression: Alcohol dependence with acute alcoholic intoxication Psychiatrically Cleared: Yes Referrals: MATHIEU (Out patient) [facility] Primary Care Physician Psychiatrist Ronel MURDOCK Behavioral Patient Instructions: General Instructions, Alcohol Intoxication (ED), Abuse of Alcohol (ED), Alcohol Dependence (ED) Additional Instructions: Contract safety to your self and others Stop drinking alcohol Follow-up with psychiatry Follow-up with primary care provider Follow-up with Anival Mancera/MATHIEU Return to the emergency department immediately with worsening of symptoms Disposition: 01 DISCHARGE HOME Condition: Stable Kasey Taylor Mar 22, 2017 20:26
== END 2017-03-23 02:16 | disposition home or self-care (01) ==
LOC: NEPD 13:52
DX: F10.229 Alcohol dependence with intoxication, unspecified (principal); F32.9 Major depressive disorder, single episode, unspecified; B19.20 Unspecified viral hepatitis C without hepatic coma; Y90.8 Blood alcohol level of 240 mg/100 ml or more
CPT/HCPCS: 80053; 80307; 85025; 96360

== ENCOUNTER 2017-03-25 12:11 | Emergency (ER) | payer OTHER ==
[~2017-03-25] VITALS: Ht 182.9 cm; Wt 73.0 kg
[2017-03-25 12:22] VITALS: BP 125/80; PULSE 99; RESP 16; TEMP 98.2; O2SAT 98
--- NOTE | 2017-03-25 12:27 | PD ---
HPI Chief Complaint: etoh intoxication Time Seen by Provider: 12:22 Travel History International Travel<30 days: No Contact w/Intl Traveler<30days: No History of Present Illness HPI Patient is 61-year-old male who is well-known to our facilities, presents to the emergency room under Servin's act for alcohol intoxication. Patient was found heavily intoxicated, unable to ambulate prior to coming to the emergency room today. Patient denies suicidal or homicidal ideations. Patient reports that he has been drinking heavily for years. Patient with no other complaints at this time. PFSH Past Medical History Atrial Fibrillation: Yes Blood Disorders: Yes (LOW PLATELETS) Anxiety: Yes Depression: Yes Heart Rhythm Problems: No Cancer: No Cardiovascular Problems: Yes (palpitation) High Cholesterol: No Chest Pain: No Congestive Heart Failure: No Cerebrovascular Accident: No Diabetes: No Dialysis: No Diminished Hearing: No Endocrine: No Gastrointestinal Disorders: Yes (Colitis) GERD: No Genitourinary: No Hepatitis: Yes (HEP C) Hiatal Hernia: No Heparin Induced Thrombocytopen: No Hypertension: Yes Immune Disorder: No Implanted Vascular Access Dvce: No Kidney Stones: No Musculoskeletal: No Neurologic: No Psychiatric: No Reproductive: No Respiratory: No Immunizations Current: Yes Migraines: No Renal Failure: No Seizures: Yes Sickle Cell Disease: No Ulcer: No Past Surgical History Abdominal Surgery: No AICD: No Arteriovenous Shunt: No Cardiac Surgery: No Ear Surgery: No Endocrine Surgery: No Eye Surgery: No Genitourinary Surgery: No Gynecologic Surgery: Yes Insulin Pump: No Joint Replacement: No Neurologic Surgery: No Oral Surgery: Yes Pacemaker: No Thoracic Surgery: No Other Surgery: Yes (UNKNOWN BACK SURGERY) Social History Alcohol Use: Yes (DAILY, large quantities for many years. ) Tobacco Use: No Substance Use: Yes (ALCOHOLISM ) Allergies-Medications (Allergen,Severity, Reaction): Coded Allergies: Penicillins (Verified Allergy, Unknown, 03/25/17) pt states he has had it before but not sure why its on his record and family members are allergic to penicillin Reported Meds & Prescriptions Reported Meds & Active Scripts Active No Active Prescriptions or Reported Medications Review of Systems General / Constitutional: No: Fever Eyes: No: Visual changes HENT: No: Headaches Cardiovascular: No: Chest Pain or Discomfort Respiratory: No: Shortness of Breath Gastrointestinal: No: Abdominal Pain Genitourinary: No: Dysuria Musculoskeletal: No: Pain Skin: No Rash Neurologic: No: Weakness Psychiatric: Positive: Substance Abuse, No: Depression Endocrine: No: Polydipsia Hematologic/Lymphatic: No: Easy Bruising Physical Exam Narrative GENERAL: patient intoxicated SKIN: Focused skin assessment warm/dry. HEAD: Atraumatic. Normocephalic. EYES: Pupils equal and round. No scleral icterus. No injection or drainage. ENT: No nasal bleeding or discharge. Mucous membranes pink and moist. NECK: Trachea midline. No JVD. CARDIOVASCULAR: Regular rate and rhythm. No murmur appreciated. RESPIRATORY: No accessory muscle use. Clear to auscultation. Breath sounds equal bilaterally. GASTROINTESTINAL: Abdomen soft, non-tender, nondistended. Hepatic and splenic margins not palpable. MUSCULOSKELETAL: No obvious deformities. No clubbing. No cyanosis. No edema. NEUROLOGICAL: Awake and alert. Normal speech. PSYCHIATRIC: Flat mood and affect; insight and judgment normal. Data Data Last Documented VS Vital Signs Date Time Temp Pulse Resp B/P (MAP) Pulse Ox O2 Delivery O2 Flow Rate FiO2 03/25/17 12:27 99 16 03/25/17 12:22 98.2 125/80 (95) 98 MDM Medical Decision Making Medical Screen Exam Complete: Yes Emergency Medical Condition: Yes Medical Record Reviewed: Yes Differential Diagnosis Alcohol intoxication Narrative Course 61-year-old male who is well-known to the emergency room, presents to emergency room under Bakers act for alcohol intoxication. Patient with no suicidal or homicidal ideations. Plan to monitor patient. Diagnosis Primary Impression: Alcohol intoxication Additional Impressions: alcohol dependency Alcohol abuse Additional Instructions: Please drink alcohol responsibly Please follow-up with your primary care doctor and return to the emergency room as needed Scripts No Active Prescriptions or Reported Meds Shaina Renee DO Mar 25, 2017 12:27
--- NOTE | 2017-03-25 20:00 | PD ---
Physical Exam Date Seen by Provider: Mar 25, 2017 Time Seen by Provider: 19:59 Narrative 61-year-old male presents to the emergency room under Whittington act. He is well- known to this emergency department. Patient has long history of alcohol abuse, alcohol intoxication. Patient was seen at 12:30 this afternoon. He has been sleeping in the emergency department. Patient is easily awakened and is ambulatory. Data Data Last Documented VS Vital Signs Date Time Temp Pulse Resp B/P (MAP) Pulse Ox O2 Delivery O2 Flow Rate FiO2 03/25/17 12:27 99 16 03/25/17 12:22 98.2 125/80 (95) 98 MDM Supervised Visit with DIANNE: No Diagnosis Primary Impression: Alcohol intoxication Qualified Codes: F10.920 - Alcohol use, unspecified with intoxication, uncomplicated Additional Impressions: Alcohol abuse alcohol dependency Patient Instructions: General Instructions, Abuse of Alcohol (ED) Departure Forms: Tests/Procedures Additional Instruction: Please drink alcohol responsibly Please follow-up with your primary care doctor and return to the emergency room as needed Med/Other Pt SpecificInfo: No Change to Meds Scripts No Active Prescriptions or Reported Meds Disposition: 01 DISCHARGE HOME Condition: Stable Luciana Sellers JEVON Mar 25, 2017 20:00
[2017-03-25 20:07] VITALS: BP 118/72; PULSE 80; RESP 18; O2SAT 98
== END 2017-03-25 20:34 | disposition home or self-care (01) ==
LOC: NEPD 12:11 → NEDAMB 20:34
DX: F10.129 Alcohol abuse with intoxication, unspecified (principal); I48.91 Unspecified atrial fibrillation; F41.9 Anxiety disorder, unspecified; F32.9 Major depressive disorder, single episode, unspecified; I10 Essential (primary) hypertension; R56.9 Unspecified convulsions; Z88.0 Allergy status to penicillin; Z86.19 Personal history of other infectious and parasitic diseases
CPT/HCPCS: 99282

== ENCOUNTER 2017-03-26 16:50 | Emergency (ER) | payer SELFPAY ==
[~2017-03-26] VITALS: Ht 182.9 cm; Wt 73.0 kg
[2017-03-26 16:54] VITALS: BP 113/71; PULSE 87; RESP 16; TEMP 98.6; O2SAT 97
--- NOTE | 2017-03-26 18:18 | PD ---
HPI Chief Complaint: Psychiatric Symptoms Time Seen by Provider: 18:15 Travel History International Travel<30 days: No Contact w/Intl Traveler<30days: No Traveled to known affect area: No History of Present Illness HPI This is a 61-year-old male who is well-known to this emergency department, who presents here today with complaints of feeling shaky. Patient states he last drank alcohol this morning. Patient has no other complaints time my examination. He does report that he is hungry. He denies any other complaints. PFSH Past Medical History Atrial Fibrillation: Yes Blood Disorders: Yes (LOW PLATELETS) Anxiety: Yes Depression: Yes Heart Rhythm Problems: No Cancer: No Cardiovascular Problems: Yes (palpitation) High Cholesterol: No Chest Pain: No Congestive Heart Failure: No Cerebrovascular Accident: No Diabetes: No Dialysis: No Diminished Hearing: No Endocrine: No Gastrointestinal Disorders: Yes (Colitis) GERD: No Genitourinary: No Hepatitis: Yes (HEP C) Hiatal Hernia: No Heparin Induced Thrombocytopen: No Hypertension: Yes Immune Disorder: No Implanted Vascular Access Dvce: No Kidney Stones: No Musculoskeletal: No Neurologic: No Psychiatric: No Reproductive: No Respiratory: No Immunizations Current: Yes Migraines: No Renal Failure: No Seizures: Yes Sickle Cell Disease: No Ulcer: No Past Surgical History Abdominal Surgery: No AICD: No Arteriovenous Shunt: No Cardiac Surgery: No Ear Surgery: No Endocrine Surgery: No Eye Surgery: No Genitourinary Surgery: No Gynecologic Surgery: Yes Insulin Pump: No Joint Replacement: No Neurologic Surgery: No Oral Surgery: Yes Pacemaker: No Thoracic Surgery: No Other Surgery: Yes (UNKNOWN BACK SURGERY) Social History Alcohol Use: Yes Tobacco Use: No Substance Use: No Allergies-Medications (Allergen,Severity, Reaction): Coded Allergies: Penicillins (Verified Allergy, Unknown, 03/25/17) pt states he has had it before but not sure why its on his record and family members are allergic to penicillin Reported Meds & Prescriptions Reported Meds & Active Scripts Active No Active Prescriptions or Reported Medications Review of Systems Except as stated in HPI: all other systems reviewed are Neg General / Constitutional: No: Fever, Chills HENT: No: Headaches, Lightheadedness, Neck Pain Cardiovascular: No: Chest Pain or Discomfort, Palpitations, Tachycardia Respiratory: Positive: Cough (chronic cough,), No: Shortness of Breath ( no) Gastrointestinal: No: Nausea, Vomiting Genitourinary: No: Dysuria, Incontinence Musculoskeletal: No: Weakness, Pain Skin: No Rash Neurologic: Positive: Other (shaking of his hands.), No: Weakness, Dizziness, Ataxia, Headache, Change in Mentation Psychiatric: Positive: Substance Abuse (history of alcoholism), No: Depression , Suicidal Ideations, Disorder of Thought Physical Exam Narrative GENERAL: Well-nourished, well-developed patient, in no acute rest her distress.. SKIN: Focused skin assessment warm/dry. HEAD: Normocephalic/atraumatic. EYES: No injection or drainage. NECK: Supple, trachea midline. CARDIOVASCULAR: Regular rate and rhythm without murmurs, gallops, or rubs. RESPIRATORY: Breath sounds equal bilaterally. No accessory muscle use. GASTROINTESTINAL: Abdomen soft, non-tender, nondistended. MUSCULOSKELETAL: No cyanosis, or edema. NEUROLOGICAL: Awake and alert. Cranial nerves II through XII intact. Motor and sensory grossly within normal limits. Five out of 5 muscle strength in all muscle groups. Normal speech. Patient has fine tremors in his hands. Data Data Last Documented VS Vital Signs Date Time Temp Pulse Resp B/P (MAP) Pulse Ox O2 Delivery O2 Flow Rate FiO2 03/26/17 16:54 98.6 87 16 113/71 (85) 97 Orders Orders Psych Screen (03/26/17 18:54) MDM Medical Decision Making Medical Screen Exam Complete: Yes Emergency Medical Condition: Yes Differential Diagnosis Alcohol withdrawal versus metabolic arrangement versus Narrative Course She is a 61-year-old male who is well-known to this emergency department, presents here multiple times per week with complaints of suicidal ideation and being hungry. The patient has been seen and evaluated by psychiatric multiple times. The patient has a heavy history of alcohol abuse. When asked while he was here, patient stated he wanted to see psychiatry. He also stated that he felt shaky. The patient is in no acute distress in my examination. He apparently voiced to one of the staff that he felt suicidal. When I asked him, he stated he had no plan. I will observe him and have the psych screener see him. At this time I do not think he meets inpatient criteria. Diagnosis Primary Impression: Depression Additional Impressions: Maling[address] Street of alcohol abuse. Scripts No Active Prescriptions or Reported Meds Jorge L Hinds MD Mar 26, 2017 18:18
== END 2017-03-26 22:14 | disposition left against medical advice (07) ==
LOC: NEDAMB 16:50
DX: F32.9 Major depressive disorder, single episode, unspecified (principal); Z76.5 Malingerer [conscious simulation]
CPT/HCPCS: 99283

== ENCOUNTER 2017-03-27 11:38 | Emergency (ER) | payer SELFPAY ==
[2017-03-27 11:55] VITALS: BP 123/74; PULSE 89; RESP 18; TEMP 98; O2SAT 97
--- NOTE | 2017-03-27 12:26 | PD ---
HPI Chief Complaint: Depression Time Seen by Provider: 12:24 Travel History International Travel<30 days: No Contact w/Intl Traveler<30days: No Traveled to known affect area: No History of Present Illness HPI 61-year-old male presents complaining of withdrawal symptoms. Specifically he feels shaky. He reports that his last treatment was this morning. He has a history of alcoholism and is a very frequent visitor to this emergency department. Most recently he was seen here yesterday with the same complaint. He endorses chronic depression. He denies any acute suicidal or homicidal intent. He denies any illicit drug use. He reports that [facility] was attempting to send him to a facility in [place] for long-term treatment of his alcoholism. He has no other medical complaints at this time. [facility] Past Medical History Atrial Fibrillation: Yes Blood Disorders: Yes (LOW PLATELETS) Anxiety: Yes Depression: Yes Heart Rhythm Problems: No Cancer: No Cardiovascular Problems: Yes (palpitation) High Cholesterol: No Chest Pain: No Congestive Heart Failure: No Cerebrovascular Accident: No Diabetes: No Dialysis: No Diminished Hearing: No Endocrine: No Gastrointestinal Disorders: Yes (Colitis) GERD: No Genitourinary: No Hepatitis: Yes (HEP C) Hiatal Hernia: No Heparin Induced Thrombocytopen: No Hypertension: Yes Immune Disorder: No Implanted Vascular Access Dvce: No Kidney Stones: No Musculoskeletal: No Neurologic: No Psychiatric: No Reproductive: No Respiratory: No Immunizations Current: Yes Migraines: No Renal Failure: No Seizures: Yes Sickle Cell Disease: No Ulcer: No Past Surgical History Abdominal Surgery: No AICD: No Arteriovenous Shunt: No Cardiac Surgery: No Ear Surgery: No Endocrine Surgery: No Eye Surgery: No Genitourinary Surgery: No Gynecologic Surgery: Yes Insulin Pump: No Joint Replacement: No Neurologic Surgery: No Oral Surgery: Yes Pacemaker: No Thoracic Surgery: No Other Surgery: Yes (UNKNOWN BACK SURGERY) Social History Alcohol Use: Yes Tobacco Use: No Substance Use: No Allergies-Medications (Allergen,Severity, Reaction): Coded Allergies: Penicillins (Verified Allergy, Unknown, 03/25/17) pt states he has had it before but not sure why its on his record and family members are allergic to penicillin Reported Meds & Prescriptions Reported Meds & Active Scripts Active No Active Prescriptions or Reported Medications Review of Systems Except as stated in HPI: all other systems reviewed are Neg Physical Exam Narrative GENERAL: Disheveled male who is in no acute distress. SKIN: Warm and dry. HEAD: Atraumatic. Normocephalic. EYES: Pupils equal and round. No scleral icterus. No injection or drainage. ENT: No nasal bleeding or discharge. Mucous membranes pink and moist. NECK: Trachea midline. No JVD. CARDIOVASCULAR: Regular rate and rhythm. No murmur appreciated. RESPIRATORY: No accessory muscle use. Clear to auscultation. Breath sounds equal bilaterally. GASTROINTESTINAL: Abdomen soft, non-tender, nondistended. Hepatic and splenic margins not palpable. MUSCULOSKELETAL: No obvious deformities. No clubbing. No cyanosis. No edema. NEUROLOGICAL: Awake and alert. No obvious cranial nerve deficits. Motor grossly within normal limits. Normal speech. PSYCHIATRIC: Depressed mood. Insight and judgment appear reasonable. Data Data Last Documented VS Vital Signs Date Time Temp Pulse Resp B/P (MAP) Pulse Ox O2 Delivery O2 Flow Rate FiO2 03/27/17 11:55 98.0 89 18 123/74 (90) 97 Room Air Orders Orders Ed Discharge Order (03/27/17 12:24) MDM Medical Decision Making Medical Screen Exam Complete: Yes Emergency Medical Condition: Yes Medical Record Reviewed: Yes Differential Diagnosis Alcoholism, alcohol withdrawal, depression Narrative Course This patient has been seen here multiple times with similar complaints. Ideally this patient would seek treatment for his alcoholism. Reportedly he is being referred to a facility in [place] by Anival Mancera. He is encouraged to get in touch with janneth Mancera in regards to this. Diagnosis Primary Impression: alcohol dependency Referrals: [facility]Other Pt SpecificInfo: No Change to Meds Scripts No Active Prescriptions or Reported Meds Disposition: 01 DISCHARGE HOME Condition: Stable Jed Pires Mar 27, 2017 12:25
[2017-03-27 13:00] VITALS: BP 126/72
== END 2017-03-27 13:01 | disposition home or self-care (01) ==
LOC: NEPD 11:38
DX: F10.20 Alcohol dependence, uncomplicated (principal); B19.20 Unspecified viral hepatitis C without hepatic coma; I10 Essential (primary) hypertension
CPT/HCPCS: 99283

== ENCOUNTER 2017-04-21 13:59 | Emergency (ER) | payer OTHER ==
[~2017-04-21] VITALS: Ht 172.7 cm; Wt 70.0 kg
[2017-04-21 14:22] VITALS: BP 152/86; PULSE 90; RESP 18; TEMP 98.5; O2SAT 100
[2017-04-21 15:04] LABS: AUTOMATED NEUTROPHIL # 2.7 TH/MM3 (1.8-7.7); BASOPHIL % 0.7 % (0.0-2.0); EOSINOPHIL # 0.1 TH/MM3 (0-0.4); EOSINOPHIL % 1.5 % (0.0-4.0); HEMATOCRIT 40.2 % (39.0-51.0); HEMO FLAGS DIFF FINAL; LYMPH % 40.6 % (9.0-44.0); LYMPHOCYTE # 2.4 TH/MM3 (1.0-4.8); MEAN CELL VOLUME 97.3 FL (80.0-100.0); MEAN CORPUSCULAR HEMOGLOBIN 33.2 PG (27.0-34.0); MEAN CORPUSCULAR HGB CONC 34.1 % (32.0-36.0); MONO % 11.6 % (0.0-8.0); NEUT % 45.6 % (16.0-70.0); PLATELET COUNT 178 TH/MM3 (150-450); RED BLOOD COUNT 4.13 MIL/MM3 (4.50-5.90); RED CELL DISTRIBUTION WIDTH 14.2 % (11.6-17.2)
--- NOTE | 2017-04-21 15:07 | PD ---
HPI Chief Complaint: Psychiatric Symptoms Time Seen by Provider: 14:28 Travel History International Travel<30 days: No Contact w/Intl Traveler<30days: No Traveled to known affect area: No History of Present Illness HPI This is a 61-year-old male who is well-known to the emergency department [place]. He was brought in under Gutierres act and according to law enforcement report the patient "was at the [facility] stating he did not want to live anymore. The patient began to offer information about his separation from his . He recently began thinking of shooting himself to end his pain. He kept crying and repeating he just wanted to ." Patient has no emergent medical complaints at this time. He denies chest pain, shortness breath, abdominal pain, vomiting, change in urine or stool. Allergies to penicillins. Symptoms aggravated with drinking alcohol. No known relieving factors. No other modifying factors or associated signs and symptoms. PFSH Past Medical History Atrial Fibrillation: Yes Blood Disorders: Yes (LOW PLATELETS) Anxiety: Yes Depression: Yes Heart Rhythm Problems: No Cancer: No Cardiovascular Problems: Yes (palpitation) High Cholesterol: No Chest Pain: No Congestive Heart Failure: No Cerebrovascular Accident: No Diabetes: No Dialysis: No Diminished Hearing: No Endocrine: No Gastrointestinal Disorders: Yes (Colitis) GERD: No Genitourinary: No Hepatitis: Yes (HEP C) Hiatal Hernia: No Heparin Induced Thrombocytopen: No Hypertension: Yes Immune Disorder: No Implanted Vascular Access Dvce: No Kidney Stones: No Musculoskeletal: No Neurologic: No Psychiatric: No Reproductive: No Respiratory: No Immunizations Current: Yes Migraines: No Renal Failure: No Seizures: Yes Sickle Cell Disease: No Ulcer: No Past Surgical History Abdominal Surgery: No AICD: No Arteriovenous Shunt: No Cardiac Surgery: No Ear Surgery: No Endocrine Surgery: No Eye Surgery: No Genitourinary Surgery: No Gynecologic Surgery: Yes Insulin Pump: No Joint Replacement: No Neurologic Surgery: No Oral Surgery: Yes Pacemaker: No Thoracic Surgery: No Other Surgery: Yes (UNKNOWN BACK SURGERY) Social History Alcohol Use: Yes Tobacco Use: No Substance Use: No Allergies-Medications (Allergen,Severity, Reaction): Coded Allergies: Penicillins (Verified Allergy, Unknown, 03/25/17) pt states he has had it before but not sure why its on his record and family members are allergic to penicillin Reported Meds & Prescriptions Reported Meds & Active Scripts Active No Active Prescriptions or Reported Medications Review of Systems Except as stated in HPI: all other systems reviewed are Neg Physical Exam Narrative GENERAL: Well-nourished, well-developed male patient, in no acute distress; disheveled SKIN: Warm and dry. HEAD: Atraumatic. Normocephalic. EYES: Pupils equal and round. ENT: Mucosa pink and moist. NECK: Supple. Trachea midline. CARDIOVASCULAR: Regular rate and rhythm. No murmur appreciated. RESPIRATORY: No accessory muscle use. Clear to auscultation. Breath sounds equal bilaterally. GASTROINTESTINAL: Abdomen soft, non-tender, nondistended. Hepatic and splenic margins not palpable. Bowel sounds are active 4 quadrants. MUSCULOSKELETAL: No obvious deformities. No clubbing. No cyanosis. No edema. NEUROLOGICAL: Awake and alert. Oriented 3. No obvious cranial nerve deficits. Motor grossly within normal limits. Normal speech. Moves all extremities. 5/5 strength to all extremities. PSYCHIATRIC: No delusional thought processes. No hallucinations. Data Data Last Documented VS Vital Signs Date Time Temp Pulse Resp B/P (MAP) Pulse Ox O2 Delivery O2 Flow Rate FiO2 04/21/17 14:22 98.5 90 18 152/86 (108) 100 Orders Orders Complete Blood Count With Diff (04/21/17 14:28) Comprehensive Metabolic Panel (04/21/17 14:28) Psych Screen (04/21/17 14:28) Drug Screen, Random Urine (04/21/17 14:28) Alcohol (Ethanol) (04/21/17 14:28) Salicylates (Aspirin) (04/21/17 14:28) Tylenol (Acetaminophen) (04/21/17 14:28) Labs Laboratory Tests Test 04/21/17 14:45 White Blood Count 6.0 TH/MM3 Red Blood Count 4.13 MIL/MM3 Hemoglobin 13.7 GM/DL Hematocrit 40.2 % Mean Corpuscular Volume 97.3 FL Mean Corpuscular Hemoglobin 33.2 PG Mean Corpuscular Hemoglobin Concent 34.1 % Red Cell Distribution Width 14.2 % Platelet Count 178 TH/MM3 Mean Platelet Volume 8.3 FL Neutrophils (%) (Auto) 45.6 % Lymphocytes (%) (Auto) 40.6 % Monocytes (%) (Auto) 11.6 % Eosinophils (%) (Auto) 1.5 % Basophils (%) (Auto) 0.7 % Neutrophils # (Auto) 2.7 TH/MM3 Lymphocytes # (Auto) 2.4 TH/MM3 Monocytes # (Auto) 0.7 TH/MM3 Eosinophils # (Auto) 0.1 TH/MM3 Basophils # (Auto) 0.0 TH/MM3 CBC Comment DIFF FINAL Differential Comment Blood Urea Nitrogen 12 MG/DL Creatinine 0.91 MG/DL Random Glucose 107 MG/DL Total Protein 7.5 GM/DL Albumin 3.6 GM/DL Calcium Level 7.9 MG/DL Alkaline Phosphatase 98 U/L Aspartate Amino Transf (AST/SGOT) 86 U/L Alanine Aminotransferase (ALT/SGPT) 85 U/L Total Bilirubin 0.4 MG/DL Sodium Level 147 MEQ/L Potassium Level 3.9 MEQ/L Chloride Level 114 MEQ/L Carbon Dioxide Level 23.3 MEQ/L Anion Gap 10 MEQ/L Estimat Glomerular Filtration Rate 85 ML/MIN Salicylates Level LESS THAN 1.7 MG/DL Urine Opiates Screen NEG Acetaminophen Level LESS THAN 2.0 MCG/ML Urine Barbiturates Screen NEG Urine Amphetamines Screen NEG Urine Benzodiazepines Screen POS Urine Cocaine Screen NEG Urine Cannabinoids Screen NEG Ethyl Alcohol Level 389 MG/DL MDM Medical Decision Making Medical Screen Exam Complete: Yes Emergency Medical Condition: Yes Medical Record Reviewed: Yes Differential Diagnosis Suicidal ideation, alcohol intoxication, substance induced mood disorder, medical clearance for psychiatric evaluation Narrative Course Patient presents under a Gutierres act. Physical examination and vital signs are essentially unremarkable. Patient has no medical complaints to report. Psych screen has been ordered. If the laboratory results are unremarkable, the patient will be medically cleared for psychiatric evaluation and disposition. Diagnosis Primary Impression: Medical clearance for psychiatric admission Scripts No Active Prescriptions or Reported Meds Condition: Stable Vangie Campoverde Apr 21, 2017 15:07
[2017-04-21 15:20] LABS: ANION GAP 10 MEQ/L (5-15)
[2017-04-21 15:31] LABS: ALKALINE PHOSPHATASE 98 U/L (45-117); ALT (GPT) 85 U/L (12-78); AST (GOT) 86 U/L (15-37); BICARBONATE 23.3 MEQ/L (21.0-32.0); BLOOD UREA NITROGEN 12 MG/DL (7-18); CHLORIDE 114 MEQ/L (98-107); GLOMERULAR FILTRATION RATE 85 ML/MIN (>89); POTASSIUM 3.9 MEQ/L (3.5-5.1); SODIUM (NA) 147 MEQ/L (136-145); TOTAL BILIRUBIN ADULT 0.4 MG/DL (0.2-1.0)
[2017-04-21 15:32] LABS: ACETAMINOPHEN LESS THAN 2.0 MCG/ML (10.0-30.0)
[2017-04-21 16:01] LABS: ALCOHOL 389 MG/DL (0-5)
[2017-04-21 22:05] VITALS: BP 99/57; PULSE 84; RESP 20; O2SAT 98
[2017-04-21] MEDS ORDERED: FLUMAZENIL 0.5 MG/5 ML VIAL IV PUSH PRN (22:30)
[2017-04-21] MEDS ORDERED: LORazepam 1 MG TAB PO PRN (22:30)
[2017-04-21] MEDS ORDERED: LORazepam 2 MG/ML VIAL IV PUSH PRN ×4 (22:30)
[2017-04-21] MEDS ORDERED: LORazepam 2 MG TAB PO PRN (22:30)
[2017-04-21 23:02] VITALS: BP 138/82; PULSE 87; RESP 20; O2SAT 98
[2017-04-22 02:00] VITALS: BP 117/63; PULSE 90; RESP 17; TEMP 99; O2SAT 98
[2017-04-22 06:00] VITALS: BP 139/75; PULSE 63; RESP 20; O2SAT 97
--- NOTE | 2017-04-22 08:36 | PD ---
Data Data Last Documented VS Vital Signs Date Time Temp Pulse Resp B/P (MAP) Pulse Ox O2 Delivery O2 Flow Rate FiO2 04/22/17 06:00 63 20 139/75 (96) 97 Room Air 04/22/17 02:00 99.0 Orders Orders Complete Blood Count With Diff (04/21/17 14:28) Comprehensive Metabolic Panel (04/21/17 14:28) Psych Screen (04/21/17 14:28) Drug Screen, Random Urine (04/21/17 14:28) Alcohol (Ethanol) (04/21/17 14:28) Salicylates (Aspirin) (04/21/17 14:28) Tylenol (Acetaminophen) (04/21/17 14:28) Alcohol Withdrawal Asmt-Ciwa ONCE (04/21/17 22:26) Flumazenil Inj (Romazicon Inj) (04/21/17 22:30) Lorazepam (Ativan) (04/21/17 22:30) Lorazepam Inj (Ativan Inj) (04/21/17 22:30) Lorazepam (Ativan) (04/21/17 22:30) Lorazepam Inj (Ativan Inj) (04/21/17 22:30) Lorazepam Inj (Ativan Inj) (04/21/17 22:30) Lorazepam Inj (Ativan Inj) (04/21/17 22:30) Diet Regular Basic (04/22/17 Breakfast) Ed Discharge Order (04/22/17 08:33) Labs Laboratory Tests Test 04/21/17 14:45 White Blood Count 6.0 TH/MM3 Red Blood Count 4.13 MIL/MM3 Hemoglobin 13.7 GM/DL Hematocrit 40.2 % Mean Corpuscular Volume 97.3 FL Mean Corpuscular Hemoglobin 33.2 PG Mean Corpuscular Hemoglobin Concent 34.1 % Red Cell Distribution Width 14.2 % Platelet Count 178 TH/MM3 Mean Platelet Volume 8.3 FL Neutrophils (%) (Auto) 45.6 % Lymphocytes (%) (Auto) 40.6 % Monocytes (%) (Auto) 11.6 % Eosinophils (%) (Auto) 1.5 % Basophils (%) (Auto) 0.7 % Neutrophils # (Auto) 2.7 TH/MM3 Lymphocytes # (Auto) 2.4 TH/MM3 Monocytes # (Auto) 0.7 TH/MM3 Eosinophils # (Auto) 0.1 TH/MM3 Basophils # (Auto) 0.0 TH/MM3 CBC Comment DIFF FINAL Differential Comment Blood Urea Nitrogen 12 MG/DL Creatinine 0.91 MG/DL Random Glucose 107 MG/DL Total Protein 7.5 GM/DL Albumin 3.6 GM/DL Calcium Level 7.9 MG/DL Alkaline Phosphatase 98 U/L Aspartate Amino Transf (AST/SGOT) 86 U/L Alanine Aminotransferase (ALT/SGPT) 85 U/L Total Bilirubin 0.4 MG/DL Sodium Level 147 MEQ/L Potassium Level 3.9 MEQ/L Chloride Level 114 MEQ/L Carbon Dioxide Level 23.3 MEQ/L Anion Gap 10 MEQ/L Estimat Glomerular Filtration Rate 85 ML/MIN Salicylates Level LESS THAN 1.7 MG/DL Urine Opiates Screen NEG Acetaminophen Level LESS THAN 2.0 MCG/ML Urine Barbiturates Screen NEG Urine Amphetamines Screen NEG Urine Benzodiazepines Screen POS Urine Cocaine Screen NEG Urine Cannabinoids Screen NEG Ethyl Alcohol Level 389 MG/DL MDM Supervised Visit with DIANNE: Yes Narrative Course 61-year-old man well-known to me in the department, alcoholism and intoxication and frequent interactions law enforcement and Gutierres acts, apparently intoxicated and depressed yesterday evening, now sober and requesting discharge. Denies suicidality. Diagnosis Primary Impression: Substance induced mood disorder Additional Impression: Alcohol abuse Referrals: [facility] day Additional Instruction: Avoid excessive alcohol use. Med/Other Pt SpecificInfo: No Change to Meds Scripts No Active Prescriptions or Reported Meds Disposition: 01 DISCHARGE HOME Condition: Stable Darinel Ricks MD Apr 22, 2017 08:36
== END 2017-04-22 08:49 | disposition home or self-care (01) ==
LOC: NEPD 13:59 → NEPJ 04-22 08:49
DX: F19.94 Other psychoactive substance use, unspecified with psychoactive substance-induced mood disorder (principal); F10.10 Alcohol abuse, uncomplicated; I48.91 Unspecified atrial fibrillation; F32.9 Major depressive disorder, single episode, unspecified; B19.20 Unspecified viral hepatitis C without hepatic coma; I10 Essential (primary) hypertension; Y90.8 Blood alcohol level of 240 mg/100 ml or more
CPT/HCPCS: 80053; 80307; 85025; 96374; 99285; J2060

== ENCOUNTER 2017-04-22 13:37 | Emergency (ER) | payer SELFPAY ==
[2017-04-22 13:40] VITALS: BP 123/72; PULSE 104; RESP 22; TEMP 97.6; O2SAT 96
== END 2017-04-22 14:12 | disposition left against medical advice (07) ==
LOC: NED 13:37
DX: Z00.8 Encounter for other general examination (principal); Z53.21 Procedure and treatment not carried out due to patient leaving prior to being seen by health care provider
CPT/HCPCS: 99281

== ENCOUNTER 2017-04-23 18:39 | Emergency (ER) | payer OTHER ==
[2017-04-23 18:52] VITALS: BP 116/84; PULSE 68; RESP 18; TEMP 98.1; O2SAT 96
[2017-04-23 19:36] VITALS: BP 119/61; PULSE 81; RESP 18; O2SAT 98
--- NOTE | 2017-04-23 19:46 | PD ---
HPI Chief Complaint: Medical Clearance Time Seen by Provider: 19:25 Travel History International Travel<30 days: No Contact w/Intl Traveler<30days: No Traveled to known affect area: No History of Present Illness HPI The patient is a 61-year-old male who presents to the emergency department via police as a Gutierres act. Patient is well-known in the emergency department with multiple visits for alcohol intoxication and psychiatric evaluation for depression. The patient states he feels alone this time of year without his family, states he is depressed. The patient does admit to drinking vodka earlier today, states he drank enough to "numb the pain ". He does have intermittent episodes and thoughts of suicide, but denies any current suicidal ideation. He denies any homicidal ideation, hallucinations, or delusions. He denies any current physical complaints. Symptoms are mild to moderate, exacerbated by history of depression and alcohol abuse, there are no currently bleeding factors. PFSH Past Medical History Atrial Fibrillation: Yes Blood Disorders: Yes (LOW PLATELETS) Anxiety: Yes Depression: Yes Heart Rhythm Problems: No Cancer: No Cardiovascular Problems: Yes (palpitation) High Cholesterol: No Chest Pain: No Congestive Heart Failure: No Cerebrovascular Accident: No Diabetes: No Dialysis: No Diminished Hearing: No Endocrine: No Gastrointestinal Disorders: Yes (Colitis) GERD: No Genitourinary: No Hepatitis: Yes (HEP C) Hiatal Hernia: No Heparin Induced Thrombocytopen: No Hypertension: Yes Immune Disorder: No Implanted Vascular Access Dvce: No Kidney Stones: No Musculoskeletal: No Neurologic: No Psychiatric: No Reproductive: No Respiratory: No Immunizations Current: Yes Migraines: No Renal Failure: No Seizures: Yes Sickle Cell Disease: No Ulcer: No Past Surgical History Abdominal Surgery: No AICD: No Arteriovenous Shunt: No Cardiac Surgery: No Ear Surgery: No Endocrine Surgery: No Eye Surgery: No Genitourinary Surgery: No Gynecologic Surgery: Yes Insulin Pump: No Joint Replacement: No Neurologic Surgery: No Oral Surgery: Yes Pacemaker: No Thoracic Surgery: No Other Surgery: Yes (UNKNOWN BACK SURGERY) Social History Alcohol Use: Yes Tobacco Use: No Substance Use: Yes Allergies-Medications (Allergen,Severity, Reaction): Coded Allergies: Penicillins (Verified Allergy, Unknown, 03/25/17) pt states he has had it before but not sure why its on his record and family members are allergic to penicillin Reported Meds & Prescriptions Reported Meds & Active Scripts Active No Active Prescriptions or Reported Medications Review of Systems Except as stated in HPI: all other systems reviewed are Neg General / Constitutional: No: Fever Cardiovascular: No: Chest Pain or Discomfort Respiratory: No: Shortness of Breath Gastrointestinal: No: Nausea, Vomiting, Abdominal Pain Psychiatric: Positive: Depression, Suicidal Ideations, Substance Abuse, No: Homicidal Ideation Physical Exam Narrative GENERAL: Awake, alert, pleasant 61-year-old male appears his stated age and is in no acute respiratory distress. SKIN: Focused skin assessment warm/dry. HEAD: Atraumatic. Normocephalic. EYES: Pupils equal and round. Mild injection bilaterally. ENT: No nasal bleeding or discharge. Breath smells of alcohol. NECK: Trachea midline. No JVD. CARDIOVASCULAR: Regular rate and rhythm. No murmur appreciated. RESPIRATORY: No accessory muscle use. Clear to auscultation. Breath sounds equal bilaterally. GASTROINTESTINAL: Abdomen soft, non-tender, nondistended. Hepatic and splenic margins not palpable. MUSCULOSKELETAL: No obvious deformities. No clubbing. No cyanosis. No edema. NEUROLOGICAL: Awake and alert. No obvious cranial nerve deficits. Motor grossly within normal limits. Normal speech. Nonfocal. Oriented 4. Follows simple commands. PSYCHIATRIC: Appropriate mood and affect; insight and judgment normal. Data Data Last Documented VS Vital Signs Date Time Temp Pulse Resp B/P (MAP) Pulse Ox O2 Delivery O2 Flow Rate FiO2 04/23/17 19:36 81 18 119/61 (80) 98 Room Air 04/23/17 18:52 98.1 Orders Orders Complete Blood Count With Diff (04/23/17 19:33) Comprehensive Metabolic Panel (04/23/17 19:33) Psych Screen (04/23/17 19:33) Drug Screen, Random Urine (04/23/17 19:33) Alcohol (Ethanol) (04/23/17 19:33) Labs Laboratory Tests Test 04/23/17 19:45 04/23/17 20:00 Urine Opiates Screen NEG Urine Barbiturates Screen NEG Urine Amphetamines Screen NEG Urine Benzodiazepines Screen POS Urine Cocaine Screen NEG Urine Cannabinoids Screen NEG White Blood Count 6.2 TH/MM3 Red Blood Count 4.14 MIL/MM3 Hemoglobin 13.5 GM/DL Hematocrit 40.0 % Mean Corpuscular Volume 96.5 FL Mean Corpuscular Hemoglobin 32.6 PG Mean Corpuscular Hemoglobin Concent 33.7 % Red Cell Distribution Width 14.0 % Platelet Count 179 TH/MM3 Mean Platelet Volume 7.2 FL Neutrophils (%) (Auto) 50.0 % Lymphocytes (%) (Auto) 34.8 % Monocytes (%) (Auto) 12.7 % Eosinophils (%) (Auto) 1.8 % Basophils (%) (Auto) 0.7 % Neutrophils # (Auto) 3.1 TH/MM3 Lymphocytes # (Auto) 2.2 TH/MM3 Monocytes # (Auto) 0.8 TH/MM3 Eosinophils # (Auto) 0.1 TH/MM3 Basophils # (Auto) 0.0 TH/MM3 CBC Comment DIFF FINAL Differential Comment Blood Urea Nitrogen 13 MG/DL Creatinine 0.96 MG/DL Random Glucose 91 MG/DL Total Protein 7.7 GM/DL Albumin 3.6 GM/DL Calcium Level 8.2 MG/DL Alkaline Phosphatase 98 U/L Aspartate Amino Transf (AST/SGOT) 71 U/L Alanine Aminotransferase (ALT/SGPT) 78 U/L Total Bilirubin 0.3 MG/DL Sodium Level 150 MEQ/L Potassium Level 4.0 MEQ/L Chloride Level 114 MEQ/L Carbon Dioxide Level 29.4 MEQ/L Anion Gap 7 MEQ/L Estimat Glomerular Filtration Rate 80 ML/MIN Ethyl Alcohol Level 370 MG/DL MDM Medical Decision Making Medical Screen Exam Complete: Yes Emergency Medical Condition: Yes Medical Record Reviewed: Yes Interpretation(s) Laboratory Tests Test 04/23/17 19:45 04/23/17 20:00 Urine Opiates Screen NEG Urine Barbiturates Screen NEG Urine Amphetamines Screen NEG Urine Benzodiazepines Screen POS Urine Cocaine Screen NEG Urine Cannabinoids Screen NEG White Blood Count 6.2 TH/MM3 Red Blood Count 4.14 MIL/MM3 Hemoglobin 13.5 GM/DL Hematocrit 40.0 % Mean Corpuscular Volume 96.5 FL Mean Corpuscular Hemoglobin 32.6 PG Mean Corpuscular Hemoglobin Concent 33.7 % Red Cell Distribution Width 14.0 % Platelet Count 179 TH/MM3 Mean Platelet Volume 7.2 FL Neutrophils (%) (Auto) 50.0 % Lymphocytes (%) (Auto) 34.8 % Monocytes (%) (Auto) 12.7 % Eosinophils (%) (Auto) 1.8 % Basophils (%) (Auto) 0.7 % Neutrophils # (Auto) 3.1 TH/MM3 Lymphocytes # (Auto) 2.2 TH/MM3 Monocytes # (Auto) 0.8 TH/MM3 Eosinophils # (Auto) 0.1 TH/MM3 Basophils # (Auto) 0.0 TH/MM3 CBC Comment DIFF FINAL Differential Comment Blood Urea Nitrogen 13 MG/DL Creatinine 0.96 MG/DL Random Glucose 91 MG/DL Total Protein 7.7 GM/DL Albumin 3.6 GM/DL Calcium Level 8.2 MG/DL Alkaline Phosphatase 98 U/L Aspartate Amino Transf (AST/SGOT) 71 U/L Alanine Aminotransferase (ALT/SGPT) 78 U/L Total Bilirubin 0.3 MG/DL Sodium Level 150 MEQ/L Potassium Level 4.0 MEQ/L Chloride Level 114 MEQ/L Carbon Dioxide Level 29.4 MEQ/L Anion Gap 7 MEQ/L Estimat Glomerular Filtration Rate 80 ML/MIN Ethyl Alcohol Level 370 MG/DL Differential Diagnosis Differential diagnosis includes alcohol abuse, alcohol dependence, adjustment disorder with mixed disturbance of emotions and conduct, substance induced mood disorder, depressive disorder NOS. Narrative Course Labs are drawn and sent. Psychiatric evaluation was ordered. Alcohol level was ordered, was 370. Sodium is slightly high at 150. The patient is medically clear to be evaluated by psychiatry. Disposition as per psych. Diagnosis Primary Impression: Substance induced mood disorder Additional Impression: Alcohol dependence with acute alcoholic intoxication Qualified Codes: F10.220 - Alcohol dependence with intoxication, uncomplicated Scripts No Active Prescriptions or Reported Meds Condition: Stable Guillermo De La Fuente MD Apr 23, 2017 19:46
[2017-04-23 20:12] LABS: AUTOMATED NEUTROPHIL # 3.1 TH/MM3 (1.8-7.7); BASOPHIL % 0.7 % (0.0-2.0); EOSINOPHIL # 0.1 TH/MM3 (0-0.4); EOSINOPHIL % 1.8 % (0.0-4.0); HEMO FLAGS DIFF FINAL; LYMPH % 34.8 % (9.0-44.0); LYMPHOCYTE # 2.2 TH/MM3 (1.0-4.8); MEAN CELL VOLUME 96.5 FL (80.0-100.0); MEAN CORPUSCULAR HEMOGLOBIN 32.6 PG (27.0-34.0); MEAN CORPUSCULAR HGB CONC 33.7 % (32.0-36.0); MONO % 12.7 % (0.0-8.0); PLATELET COUNT 179 TH/MM3 (150-450); RED BLOOD COUNT 4.14 MIL/MM3 (4.50-5.90); WHITE BLOOD COUNT 6.2 TH/MM3 (4.0-11.0)
[2017-04-23 20:34] LABS: ALT (GPT) 78 U/L (12-78); ANION GAP 7 MEQ/L (5-15); AST (GOT) 71 U/L (15-37); BICARBONATE 29.4 MEQ/L (21.0-32.0); BLOOD UREA NITROGEN 13 MG/DL (7-18); CHLORIDE 114 MEQ/L (98-107); GLOMERULAR FILTRATION RATE 80 ML/MIN (>89); SODIUM (NA) 150 MEQ/L (136-145)
[2017-04-23 20:38] LABS: ALKALINE PHOSPHATASE 98 U/L (45-117); TOTAL BILIRUBIN ADULT 0.3 MG/DL (0.2-1.0)
[2017-04-23 20:39] LABS: ALCOHOL 370 MG/DL (0-5)
== END 2017-04-24 03:04 ==
LOC: NEDAMB 18:39 → NEPJ 04-24 03:04
DX: F19.94 Other psychoactive substance use, unspecified with psychoactive substance-induced mood disorder (principal); F10.229 Alcohol dependence with intoxication, unspecified; F32.9 Major depressive disorder, single episode, unspecified; I48.91 Unspecified atrial fibrillation; F41.9 Anxiety disorder, unspecified; R00.2 Palpitations; I10 Essential (primary) hypertension; R56.9 Unspecified convulsions; Z86.19 Personal history of other infectious and parasitic diseases
CPT/HCPCS: 80053; 80307; 85025; 99285

== ENCOUNTER 2017-04-24 20:42 | Emergency (ER) | payer OTHER ==
[~2017-04-24] VITALS: Ht 180.3 cm; Wt 73.0 kg
[2017-04-24 21:10] VITALS: BP 114/61; PULSE 78; RESP 16; O2SAT 98
--- NOTE | 2017-04-24 21:22 | PD ---
HPI . Gutierres act Chief Complaint: Suicide Ideation/Attempt Time Seen by Provider: 20:55 Travel History International Travel<30 days: No Contact w/Intl Traveler<30days: No Traveled to known affect area: No History of Present Illness HPI 61-year-old male patient presents emergency department as a Gutierres act from [place] police department. Patient is clearly intoxicated. Patient told the police surgeon that he had a gun he would kill himself. Patient Gutierres acted from that statement. Patient denies any physiological complaints at this time. Patient has soiled clothes. Patient is denying any homicidal or suicidal ideation at this time. Patient expresses irritation that the police Gutierres acted him. Patient has been Gutierres acted by our facility in the past multiple times and he always expresses irritation at the police Gutierres act him. Patient is a known alcoholic. PFSH Past Medical History Atrial Fibrillation: Yes Blood Disorders: Yes (LOW PLATELETS) Anxiety: Yes Depression: Yes Heart Rhythm Problems: No Cancer: No Cardiovascular Problems: Yes (palpitation) High Cholesterol: No Chest Pain: No Congestive Heart Failure: No Cerebrovascular Accident: No Diabetes: No Dialysis: No Diminished Hearing: No Endocrine: No Gastrointestinal Disorders: Yes (Colitis) GERD: No Hepatitis: Yes (HEP C) Hiatal Hernia: No Heparin Induced Thrombocytopen: No Hypertension: Yes Immune Disorder: No Implanted Vascular Access Dvce: No Immunizations Current: Yes Seizures: Yes Past Surgical History Surgical History: No Previous Surgery Abdominal Surgery: No AICD: No Arteriovenous Shunt: No Cardiac Surgery: No Ear Surgery: No Endocrine Surgery: No Eye Surgery: No Genitourinary Surgery: No Gynecologic Surgery: Yes Insulin Pump: No Joint Replacement: No Neurologic Surgery: No Oral Surgery: Yes Thoracic Surgery: No Other Surgery: Yes (UNKNOWN BACK SURGERY) Social History Alcohol Use: Yes Tobacco Use: No Substance Use: Yes Allergies-Medications (Allergen,Severity, Reaction): Coded Allergies: Penicillins (Verified Allergy, Unknown, 04/24/17) pt states he has had it before but not sure why its on his record and family members are allergic to penicillin Reported Meds & Prescriptions Reported Meds & Active Scripts Active No Active Prescriptions or Reported Medications Review of Systems Except as stated in HPI: all other systems reviewed are Neg Physical Exam Narrative GENERAL: Disheveled with soiled closed a 61 year old male patient that appears to be intoxicated is irritated that he is Gutierres acted. SKIN: Focused skin assessment warm/dry. HEAD: Normocephalic. Atraumatic. EYES: No scleral icterus. No injection or drainage. NECK: Supple, trachea midline. No JVD or lymphadenopathy. CARDIOVASCULAR: Regular rate and rhythm without murmurs, gallops, or rubs. RESPIRATORY: Breath sounds equal bilaterally. No accessory muscle use. GASTROINTESTINAL: Abdomen soft, non-tender, nondistended. MUSCULOSKELETAL: No cyanosis, or edema. BACK: Nontender without obvious deformity. No CVA tenderness. Data Data Last Documented VS Vital Signs Date Time Temp Pulse Resp B/P (MAP) Pulse Ox O2 Delivery O2 Flow Rate FiO2 04/24/17 21:10 78 16 114/61 (78) 98 Orders Orders Complete Blood Count With Diff (04/24/17 21:03) Comprehensive Metabolic Panel (04/24/17 21:03) Urinalysis - C+S If Indicated (04/24/17 21:03) Psych Screen (04/24/17 21:) Drug Screen, Random Urine (04/24/17 21:03) Labs Laboratory Tests Test 04/24/17 21:25 04/24/17 21:29 Urine Color LIGHT-YELLOW Urine Turbidity CLEAR Urine pH 5.0 Urine Specific [place] 1.004 Urine Protein NEG mg/dL Urine Glucose (UA) NEG mg/dL Urine Ketones NEG mg/dL Urine Occult Blood NEG Urine Nitrite NEG Urine Bilirubin NEG Urine Urobilinogen LESS THAN 2.0 MG/DL Urine Leukocyte Esterase NEG Urine Mucus FEW /lpf Microscopic Urinalysis Comment CULT NOT INDICATED Urine Opiates Screen NEG Urine Barbiturates Screen NEG Urine Amphetamines Screen NEG Urine Benzodiazepines Screen NEG Urine Cocaine Screen NEG Urine Cannabinoids Screen NEG White Blood Count 4.9 TH/MM3 Red Blood Count 4.02 MIL/MM3 Hemoglobin 12.9 GM/DL Hematocrit 38.5 % Mean Corpuscular Volume 95.8 FL Mean Corpuscular Hemoglobin 32.2 PG Mean Corpuscular Hemoglobin Concent 33.6 % Red Cell Distribution Width 14.5 % Platelet Count 148 TH/MM3 Mean Platelet Volume 7.2 FL Neutrophils (%) (Auto) 53.0 % Lymphocytes (%) (Auto) 31.2 % Monocytes (%) (Auto) 13.7 % Eosinophils (%) (Auto) 1.1 % Basophils (%) (Auto) 1.0 % Neutrophils # (Auto) 2.6 TH/MM3 Lymphocytes # (Auto) 1.5 TH/MM3 Monocytes # (Auto) 0.7 TH/MM3 Eosinophils # (Auto) 0.1 TH/MM3 Basophils # (Auto) 0.0 TH/MM3 CBC Comment DIFF FINAL Differential Comment Blood Urea Nitrogen 9 MG/DL Creatinine 0.84 MG/DL Random Glucose 90 MG/DL Albumin 3.6 GM/DL Calcium Level 8.3 MG/DL Aspartate Amino Transf (AST/SGOT) 109 U/L Alanine Aminotransferase (ALT/SGPT) 105 U/L Sodium Level 144 MEQ/L Potassium Level 3.2 MEQ/L Chloride Level 110 MEQ/L Carbon Dioxide Level 24.8 MEQ/L Anion Gap 9 MEQ/L Estimat Glomerular Filtration Rate 94 ML/MIN MDM Medical Decision Making Medical Screen Exam Complete: Yes Emergency Medical Condition: Yes Differential Diagnosis Depression versus suicidal ideation versus anxiety versus adjustment disorder versus mood disorder versus bipolar disorder versus schizophrenia versus paranoid disorder versus psychosis versus substance abuse versus alcohol abuse versus alcohol induced psychosis versus homicidality addition versus cutting versus personality disorder Narrative Course 61-year-old male patient presents emergency department as a Gutierres act. Patient denies any physiological point of this time. CBC, CMP, UA, drug screen and psych screening ordered and pending. Lab work, drug screen and UA unremarkable. Patient is medically cleared at this time. Psych screen ordered and pending. Psych to determine the disposition of the patient. Diagnosis Primary Impression: Psychiatric exam requested by authority Scripts No Active Prescriptions or Reported Meds Condition: Stable RadhaAlice martinez Kira APPIAHP Apr 24, 2017 21:22
[2017-04-24 21:51] LABS: AUTOMATED NEUTROPHIL # 2.6 TH/MM3 (1.8-7.7); EOSINOPHIL # 0.1 TH/MM3 (0-0.4); EOSINOPHIL % 1.1 % (0.0-4.0); HEMATOCRIT 38.5 % (39.0-51.0); HEMO FLAGS DIFF FINAL; LYMPH % 31.2 % (9.0-44.0); LYMPHOCYTE # 1.5 TH/MM3 (1.0-4.8); MEAN CELL VOLUME 95.8 FL (80.0-100.0); MEAN CORPUSCULAR HEMOGLOBIN 32.2 PG (27.0-34.0); MEAN CORPUSCULAR HGB CONC 33.6 % (32.0-36.0); MONO % 13.7 % (0.0-8.0); PLATELET COUNT 148 TH/MM3 (150-450); RED BLOOD COUNT 4.02 MIL/MM3 (4.50-5.90); RED CELL DISTRIBUTION WIDTH 14.5 % (11.6-17.2); WHITE BLOOD COUNT 4.9 TH/MM3 (4.0-11.0)
[2017-04-24 22:03] LABS: BLOOD, URINE NEG (NEG); COMMENT (UR) CULT NOT INDICATED; CULTURE IF INDICATED CULT NOT INDICATED; GLUCOSE,URINE NEG (NEG); KETONE, URINE NEG (NEG); MUCUS URINE FEW /lpf (OCC); NITRITE,URINE NEG (NEG); URINE COLOR LIGHT-YELLOW (YELLW/STRAW)
[2017-04-24 22:12] LABS: ALT (GPT) 105 U/L (12-78); ANION GAP 9 MEQ/L (5-15); AST (GOT) 109 U/L (15-37); BICARBONATE 24.8 MEQ/L (21.0-32.0); BLOOD UREA NITROGEN 9 MG/DL (7-18); CHLORIDE 110 MEQ/L (98-107); GLOMERULAR FILTRATION RATE 94 ML/MIN (>89); POTASSIUM 3.2 MEQ/L (3.5-5.1); SODIUM (NA) 144 MEQ/L (136-145)
[2017-04-24 22:15] LABS: ALKALINE PHOSPHATASE 92 U/L (45-117); TOTAL BILIRUBIN ADULT 0.4 MG/DL (0.2-1.0)
[2017-04-25 05:46] VITALS: BP 97/63; PULSE 79; RESP 18
[2017-04-25 10:00] VITALS: BP 114/56; PULSE 79; RESP 18; TEMP 98.4; O2SAT 100
--- NOTE | 2017-04-25 11:57 | PD ---
History of Present Illness Chief Complaint: Suicide Ideation/Attempt Time Seen by Provider: 11:30 Travel History International Travel<30 Days: No Contact w/Intl Traveler<30days: No Known affected area: No Legal Status Legal Status: Gutierres Act History of Present Illness: Patient very well known to this physician. Long history of alcoholism. Wants to leave. No suicidal or homicidal ideation. No cognitive deficits. No intoxication. No psychosis. PFSH Past Medical History Atrial Fibrillation: Yes Blood Disorders: Yes (LOW PLATELETS) Anxiety: Yes Depression: Yes Heart Rhythm Problems: No Cancer: No Cardiovascular Problems: Yes (palpitation) High Cholesterol: No Chest Pain: No Congestive Heart Failure: No Cerebrovascular Accident: No Diabetes: No Dialysis: No Diminished Hearing: No Endocrine: No Gastrointestinal Disorders: Yes (Colitis) GERD: No Hepatitis: Yes (HEP C) Hiatal Hernia: No Heparin Induced Thrombocytopen: No Hypertension: Yes Immune Disorder: No Implanted Vascular Access Dvce: No Immunizations Current: Yes Seizures: Yes Past Surgical History Surgical History: No Previous Surgery Abdominal Surgery: No AICD: No Arteriovenous Shunt: No Cardiac Surgery: No Ear Surgery: No Endocrine Surgery: No Eye Surgery: No Genitourinary Surgery: No Gynecologic Surgery: Yes Insulin Pump: No Joint Replacement: No Neurologic Surgery: No Oral Surgery: Yes Thoracic Surgery: No Other Surgery: Yes (UNKNOWN BACK SURGERY) Psychiatric History Psychiatric History Hx Psychiatric Treatment: PATIENT HAS NUMEROUS E.D. VISITS TO THIS FACILITY FOR SUICIDAL IDEATION WHILE INTOXICATED AND GUTIERRES ACTS. History of Inpatient Treatment: Yes Guns or firearms in home: No Social History Hx Alcohol Use: Yes Hx Tobacco Use: No Hx Substance Use: Yes Substance Use Type: Alcohol Other Substances Used: STARTED DRINKING AT AGE 14. SPENT 8 YRS "DRY" AND THEN "IT GOT BORING" Hx of Substance Use Treatment: Yes Allergies-Medications (Allergen,Severity, Reaction): Coded Allergies: Penicillins (Verified Allergy, Unknown, 04/24/17) pt states he has had it before but not sure why its on his record and family members are allergic to penicillin Reported Meds & Prescriptions Reported Meds & Active Scripts Active No Active Prescriptions or Reported Medications Review of Systems Except as stated in HPI: all other systems reviewed are Neg Mental Status Examination Appearance: Disheveled Consciousness: Alert Orientation: x4 Motor Activity: Normal gait Speech: Unremarkable Language: Adequate Fund of Knowledge: Adequate Attention and Concentration: Adequate Memory: Unremarkable Mood: Appropriate Affect: Appropriate Thought Process & Associations: Intact Thought Content: Appropriate Hallucination Type: None Delusion Type: None Suicidal Ideation: No Suicidal Plan: No Suicidal Intention: No Homicidal Ideation: No Homicidal Plan: No Homicidal Intention: No Insight: Adequate Judgment: Adequate MDM Medical Decision Making Medical Record Reviewed: Yes Assessment/Plan Patient interviewed in his room. Medical record reviewed. Case discussed with nurse Jeanette. Patient has been sent to [facility] previously and does not wish to go there this time. He does not meet Gutierres at criteria. He does not meet criteria for involuntary psychiatric hospitalization. Orders Orders Complete Blood Count With Diff (04/24/17 21:03) Comprehensive Metabolic Panel (04/24/17 21:03) Urinalysis - C+S If Indicated (04/24/17 21:03) Psych Screen (04/24/17 21:03) Drug Screen, Random Urine (04/24/17 21:03) Diet Regular Basic (04/25/17 Breakfast) Diet Regular Basic (04/25/17 Lunch) Results Vital Signs Date Time Temp Pulse Resp B/P (MAP) Pulse Ox O2 Delivery O2 Flow Rate FiO2 04/25/17 10:00 98.4 79 18 114/56 (75) 100 04/25/17 05:46 79 18 97/63 (74) Room Air 04/24/17 21:10 78 16 114/61 (78) 98 Laboratory Tests Test 04/24/17 21:25 04/24/17 21:29 Urine Color LIGHT-YELLOW Urine Turbidity CLEAR Urine pH 5.0 Urine Specific [place] 1.004 Urine Protein NEG Urine Glucose (UA) NEG Urine Ketones NEG Urine Occult Blood NEG Urine Nitrite NEG Urine Bilirubin NEG Urine Urobilinogen LESS THAN 2.0 Urine Leukocyte Esterase NEG Urine Mucus FEW Microscopic Urinalysis Comment CULT NOT INDICATED Urine Opiates Screen NEG Urine Barbiturates Screen NEG Urine Amphetamines Screen NEG Urine Benzodiazepines Screen NEG Urine Cocaine Screen NEG Urine Cannabinoids Screen NEG White Blood Count 4.9 Red Blood Count 4.02 Hemoglobin 12.9 Hematocrit 38.5 Mean Corpuscular Volume 95.8 Mean Corpuscular Hemoglobin 32.2 Mean Corpuscular Hemoglobin Concent 33.6 Red Cell Distribution Width 14.5 Platelet Count 148 Mean Platelet Volume 7.2 Neutrophils (%) (Auto) 53.0 Lymphocytes (%) (Auto) 31.2 Monocytes (%) (Auto) 13.7 Eosinophils (%) (Auto) 1.1 Basophils (%) (Auto) 1.0 Neutrophils # (Auto) 2.6 Lymphocytes # (Auto) 1.5 Monocytes # (Auto) 0.7 Eosinophils # (Auto) 0.1 Basophils # (Auto) 0.0 CBC Comment DIFF FINAL Differential Comment Blood Urea Nitrogen 9 Creatinine 0.84 Random Glucose 90 Total Protein 7.6 Albumin 3.6 Calcium Level 8.3 Alkaline Phosphatase 92 Aspartate Amino Transf (AST/SGOT) 109 Alanine Aminotransferase (ALT/SGPT) 105 Total Bilirubin 0.4 Sodium Level 144 Potassium Level 3.2 Chloride Level 110 Carbon Dioxide Level 24.8 Anion Gap 9 Estimat Glomerular Filtration Rate 94 Diagnosis Primary Impression: Alcohol abuse Prescriptions No Active Prescriptions or Reported Meds Condition: Stable Davie Oconnell MD Apr 25, 2017 11:57
--- NOTE | 2017-04-25 12:00 | PD ---
Physical Exam Date Seen by Provider: Apr 25, 2017 Time Seen by Provider: 11:58 Narrative 61-year-old male previously medically cleared for psychiatric evaluation has been evaluated by the psychiatrist felt to be psychiatrically stable for discharge. Patient continues to be medically stable for discharge. Patient to follow up per psychiatric note. Data Data Last Documented VS Vital Signs Date Time Temp Pulse Resp B/P (MAP) Pulse Ox O2 Delivery O2 Flow Rate FiO2 04/25/17 10:00 98.4 79 18 114/56 (75) 100 04/25/17 05:46 Room Air Orders Orders Complete Blood Count With Diff (04/24/17 21:03) Comprehensive Metabolic Panel (04/24/17 21:03) Urinalysis - C+S If Indicated (04/24/17 21:03) Psych Screen (04/24/17 21:03) Drug Screen, Random Urine (04/24/17 21:03) Diet Regular Basic (04/25/17 Breakfast) Diet Regular Basic (04/25/17 Lunch) Labs Laboratory Tests Test 04/24/17 21:25 04/24/17 21:29 Urine Color LIGHT-YELLOW Urine Turbidity CLEAR Urine pH 5.0 Urine Specific [place] 1.004 Urine Protein NEG mg/dL Urine Glucose (UA) NEG mg/dL Urine Ketones NEG mg/dL Urine Occult Blood NEG Urine Nitrite NEG Urine Bilirubin NEG Urine Urobilinogen LESS THAN 2.0 MG/DL Urine Leukocyte Esterase NEG Urine Mucus FEW /lpf Microscopic Urinalysis Comment CULT NOT INDICATED Urine Opiates Screen NEG Urine Barbiturates Screen NEG Urine Amphetamines Screen NEG Urine Benzodiazepines Screen NEG Urine Cocaine Screen NEG Urine Cannabinoids Screen NEG White Blood Count 4.9 TH/MM3 Red Blood Count 4.02 MIL/MM3 Hemoglobin 12.9 GM/DL Hematocrit 38.5 % Mean Corpuscular Volume 95.8 FL Mean Corpuscular Hemoglobin 32.2 PG Mean Corpuscular Hemoglobin Concent 33.6 % Red Cell Distribution Width 14.5 % Platelet Count 148 TH/MM3 Mean Platelet Volume 7.2 FL Neutrophils (%) (Auto) 53.0 % Lymphocytes (%) (Auto) 31.2 % Monocytes (%) (Auto) 13.7 % Eosinophils (%) (Auto) 1.1 % Basophils (%) (Auto) 1.0 % Neutrophils # (Auto) 2.6 TH/MM3 Lymphocytes # (Auto) 1.5 TH/MM3 Monocytes # (Auto) 0.7 TH/MM3 Eosinophils # (Auto) 0.1 TH/MM3 Basophils # (Auto) 0.0 TH/MM3 CBC Comment DIFF FINAL Differential Comment Blood Urea Nitrogen 9 MG/DL Creatinine 0.84 MG/DL Random Glucose 90 MG/DL Total Protein 7.6 GM/DL Albumin 3.6 GM/DL Calcium Level 8.3 MG/DL Alkaline Phosphatase 92 U/L Aspartate Amino Transf (AST/SGOT) 109 U/L Alanine Aminotransferase (ALT/SGPT) 105 U/L Total Bilirubin 0.4 MG/DL Sodium Level 144 MEQ/L Potassium Level 3.2 MEQ/L Chloride Level 110 MEQ/L Carbon Dioxide Level 24.8 MEQ/L Anion Gap 9 MEQ/L Estimat Glomerular Filtration Rate 94 ML/MIN [facility] Medical Record Reviewed: Yes Supervised Visit with DIANNE: Yes Narrative Course 61-year-old male previously medically cleared for psychiatric evaluation has been evaluated by the psychiatrist felt to be psychiatrically stable for discharge. Patient continues to be medically stable for discharge. Patient to follow up per psychiatric note. Diagnosis Primary Impression: Alcohol abuse Referrals: [facility] Patient Instructions: Abuse of Alcohol (ED), General Instructions Med/Other Pt SpecificInfo: No Meds Exist/No RX given Scripts No Active Prescriptions or Reported Meds Disposition: 01 DISCHARGE HOME Condition: Stable Dion Packer Apr 25, 2017 12:00
== END 2017-04-25 12:35 | disposition home or self-care (01) ==
LOC: NEPC 20:42 → NEPJ 04-25 12:35
DX: F10.10 Alcohol abuse, uncomplicated (principal); I48.91 Unspecified atrial fibrillation; F41.9 Anxiety disorder, unspecified; F32.9 Major depressive disorder, single episode, unspecified; I10 Essential (primary) hypertension; Z86.19 Personal history of other infectious and parasitic diseases
CPT/HCPCS: 80053; 80307; 81001; 85025; 99283

== ENCOUNTER 2017-04-28 09:20 | Emergency (ER) | payer SELFPAY ==
[2017-04-28 09:35] VITALS: BP 144/72; PULSE 73; RESP 18; TEMP 98; O2SAT 100
--- NOTE | 2017-04-28 09:40 | PD ---
HPI Chief Complaint: suicidal ideation/Gutierres Act Time Seen by Provider: 09:33 Travel History International Travel<30 days: No Contact w/Intl Traveler<30days: No History of Present Illness HPI The patient's 61 years old. He arrives to the ER on a routine basis voluntarily or via police escort. His complaints typically include suicidal ideation, alcoholism and/or a concern for pending alcohol withdrawal syndrome. Today he denies suicidal ideation however had that reported to the police officers. He's been evaluated by our psychiatry service at least a dozen times in the last year with a similar report each time attesting that the patient will have unpredictable and unavoidable suicidal ideations indefinitely. He arrives as a Gutierres act today having reported suicidal ideation to police officers which he denies to me. PFSH Past Medical History Atrial Fibrillation: Yes Blood Disorders: Yes (LOW PLATELETS) Anxiety: Yes Depression: Yes Heart Rhythm Problems: No Cancer: No Cardiovascular Problems: Yes (palpitation) High Cholesterol: No Chest Pain: No Congestive Heart Failure: No Cerebrovascular Accident: No Diabetes: No Dialysis: No Diminished Hearing: No Endocrine: No Gastrointestinal Disorders: Yes (Colitis) GERD: No Hepatitis: Yes (HEP C) Hiatal Hernia: No Heparin Induced Thrombocytopen: No Hypertension: Yes Immune Disorder: No Implanted Vascular Access Dvce: No Immunizations Current: Yes Seizures: Yes Past Surgical History Abdominal Surgery: No AICD: No Arteriovenous Shunt: No Cardiac Surgery: No Ear Surgery: No Endocrine Surgery: No Eye Surgery: No Genitourinary Surgery: No Gynecologic Surgery: Yes Insulin Pump: No Joint Replacement: No Neurologic Surgery: No Oral Surgery: Yes Thoracic Surgery: No Other Surgery: Yes (UNKNOWN BACK SURGERY) Social History Alcohol Use: Yes Tobacco Use: No Substance Use: Yes Allergies-Medications (Allergen,Severity, Reaction): Coded Allergies: Penicillins (Verified Allergy, Unknown, 04/24/17) pt states he has had it before but not sure why its on his record and family members are allergic to penicillin Reported Meds & Prescriptions Reported Meds & Active Scripts Active No Active Prescriptions or Reported Medications Review of Systems Except as stated in HPI: all other systems reviewed are Neg Physical Exam Narrative GENERAL: 61-year-old male well-nourished well-developed no acute distress sitting upright in a chair SKIN: Warm and dry. HEAD: Atraumatic. Normocephalic. EYES: Pupils equal and round. No scleral icterus. No injection or drainage. ENT: No nasal bleeding or discharge. Mucous membranes pink and moist. NECK: Trachea midline. No JVD. CARDIOVASCULAR: Regular rate and rhythm. RESPIRATORY: Lungs are clear. There is no respiratory distress. GASTROINTESTINAL: Abdomen soft, non-tender, nondistended. Hepatic and splenic margins not palpable. MUSCULOSKELETAL: Extremities without clubbing, cyanosis, or edema. No obvious deformities. NEUROLOGICAL: Awake and alert. No obvious cranial nerve deficits. Motor grossly within normal limits. Five out of 5 muscle strength in the arms and legs. Normal speech. PSYCHIATRIC: Denies suicidal/homicidal ideation. Cooperative Data Data Last Documented VS Vital Signs Date Time Temp Pulse Resp B/P (MAP) Pulse Ox O2 Delivery O2 Flow Rate FiO2 04/28/17 10:02 04/28/17 09:48 18 04/28/17 09:35 98.0 73 100 Room Air Orders Orders Ed Discharge Order (04/28/17 09:33) MDM Medical Decision Making Medical Screen Exam Complete: Yes Emergency Medical Condition: Yes Medical Record Reviewed: Yes Differential Diagnosis Altered mental status/psychosis due to infection/environmental exposure/ metabolic abnormality, polypharmacy, alcohol abuse/intoxication, illicit or prescribed drug abuse, malingering/secondary gain, non-organic psychiatric disease Narrative Course Patient has no acute medical complaint. Patient has chronic psychiatric complaints. None of the patient's indications for ER evaluation today stand to benefit from a workup here or by admission. Diagnosis Primary Impression: Alcoholism Additional Impression: Suicidal ideation Referrals: [facility] 2 days Additional Instructions: You have a choice when it comes to health care, and we are glad that you chose [facility]. Hopefully, we have met your expectations on today's visit. You are welcome to return to [facility] at any time, as we are committed to meeting the health care needs of our community. Med/Other Pt SpecificInfo: No Change to Meds Scripts No Active Prescriptions or Reported Meds Disposition: 01 DISCHARGE HOME Condition: Stable Zackary Khan MD Apr 28, 2017 09:40
== END 2017-04-28 10:03 | disposition home or self-care (01) ==
LOC: NEPD 09:20
DX: F10.20 Alcohol dependence, uncomplicated (principal); R45.851 Suicidal ideations
CPT/HCPCS: 99283

== ENCOUNTER 2017-04-28 19:07 | Emergency (ER) | payer SELFPAY ==
[~2017-04-28] VITALS: Ht 185.4 cm; Wt 73.0 kg
[2017-04-28 19:25] VITALS: BP 129/72; PULSE 57; RESP 16; TEMP 98.2; O2SAT 97
--- NOTE | 2017-04-28 19:48 | PD ---
HPI Chief Complaint: Alcohol/Drug Intoxication Time Seen by Provider: 19:22 Travel History International Travel<30 days: No Contact w/Intl Traveler<30days: No Traveled to known affect area: No History of Present Illness HPI 61-year-old white male presents to emergency department by EMS on a long spineboard and cervical immobilization due to alcohol intoxication. This is a patient well-known to the medical staff and myself. He was just seen earlier today and was discharged. He returns again heavily intoxicated. Accu-Chek was 80 by EMS. There is no evidence of trauma. The patient was [place] in a park laying on the ground covered empirically and appeared heavily intoxicated. The patient is unable to give any meaningful history. He has urinated on himself. PFSH Past Medical History Atrial Fibrillation: Yes Blood Disorders: Yes Anxiety: Yes Depression: Yes Heart Rhythm Problems: No Cancer: No Cardiovascular Problems: Yes High Cholesterol: No Chest Pain: No Congestive Heart Failure: No Cerebrovascular Accident: No Diabetes: No Dialysis: No Diminished Hearing: No Endocrine: No Gastrointestinal Disorders: Yes (COLITIS) GERD: No Hepatitis: Yes (HEP C) Hiatal Hernia: No Heparin Induced Thrombocytopen: No Hypertension: Yes Immune Disorder: No Implanted Vascular Access Dvce: No Immunizations Current: Yes Seizures: Yes (R/T ETOH WD) Past Surgical History Abdominal Surgery: No AICD: No Arteriovenous Shunt: No Cardiac Surgery: No Ear Surgery: No Endocrine Surgery: No Eye Surgery: No Genitourinary Surgery: No Gynecologic Surgery: Yes Insulin Pump: No Joint Replacement: No Neurologic Surgery: No Oral Surgery: Yes Thoracic Surgery: No Other Surgery: Yes (UNKNOWN BACK SURGERY) Social History Alcohol Use: Yes (daily) Tobacco Use: No Substance Use: Yes Allergies-Medications (Allergen,Severity, Reaction): Coded Allergies: Penicillins (Verified Allergy, Unknown, 04/24/17) pt states he has had it before but not sure why its on his record and family members are allergic to penicillin Reported Meds & Prescriptions Reported Meds & Active Scripts Active No Active Prescriptions or Reported Medications Review of Systems ROS Limitations: Intoxication Physical Exam Narrative GENERAL: Well-nourished, well-developed patient. Heavily intoxicated. Incoherent speech but arouses to painful stimuli SKIN: Warm and dry. HEAD: Normocephalic and atraumatic. EYES: No scleral icterus. No injection or drainage. ENT: No nasal drainage noted. Mucous membranes pink. Airway patent. Patient is handling his secretions. He has a positive gag reflex. NECK: Supple, trachea midline. Moves head freely without obvious discomfort. CARDIOVASCULAR: Regular rate and rhythm without murmurs, gallops, or rubs. RESPIRATORY: Breath sounds equal bilaterally. No accessory muscle use. GASTROINTESTINAL: Abdomen soft, non-tender, nondistended. EXTREMITIES: No cyanosis or edema. BACK: Nontender without obvious deformity. No CVA tenderness. NEURO: Patient is somnolent but arouses to noxious stimuli falls back to sleep readily.. no sensorimotor deficits. Nonfocal. Slurred speech. PSYCH: No delusions. No auditory or visual hallucinations. Data Data Last Documented VS Vital Signs Date Time Temp Pulse Resp B/P (MAP) Pulse Ox O2 Delivery O2 Flow Rate FiO2 04/29/17 05:03 50 15 104/63 (77) 96 Room Air 04/28/17 19:33 2.00 04/28/17 19:25 98.2 Orders Orders Complete Blood Count With Diff (04/28/17 20:28) Basic Metabolic Panel (Bmp) (04/28/17 20:28) Iv Access Insert/Monitor (04/28/17 20:28) Sodium Chlor 0.9% 1000 Ml Inj (Ns 1000 M (04/28/17 20:30) Labs Laboratory Tests Test 04/28/17 20:35 White Blood Count 5.8 TH/MM3 Red Blood Count 4.07 MIL/MM3 Hemoglobin 13.2 GM/DL Hematocrit 39.1 % Mean Corpuscular Volume 95.9 FL Mean Corpuscular Hemoglobin 32.4 PG Mean Corpuscular Hemoglobin Concent 33.8 % Red Cell Distribution Width 14.1 % Platelet Count 117 TH/MM3 Mean Platelet Volume 7.0 FL Neutrophils (%) (Auto) 63.4 % Lymphocytes (%) (Auto) 28.2 % Monocytes (%) (Auto) 7.6 % Eosinophils (%) (Auto) 0.5 % Basophils (%) (Auto) 0.3 % Neutrophils # (Auto) 3.7 TH/MM3 Lymphocytes # (Auto) 1.6 TH/MM3 Monocytes # (Auto) 0.4 TH/MM3 Eosinophils # (Auto) 0.0 TH/MM3 Basophils # (Auto) 0.0 TH/MM3 CBC Comment DIFF FINAL Differential Comment Blood Urea Nitrogen 11 MG/DL Creatinine 0.63 MG/DL Random Glucose 112 MG/DL Calcium Level 7.9 MG/DL Sodium Level 145 MEQ/L Potassium Level 3.5 MEQ/L Chloride Level 110 MEQ/L Carbon Dioxide Level 25.3 MEQ/L Anion Gap 10 MEQ/L Estimat Glomerular Filtration Rate 130 ML/MIN MDM Medical Decision Making Medical Screen Exam Complete: Yes Emergency Medical Condition: Yes Medical Record Reviewed: Yes Interpretation(s) CBC & BMP Diagram 04/28/17 20:35 Calcium Level 7.9 L Differential Diagnosis Differential diagnoses: Alcohol intoxication, substance abuse, electrolyte abnormality, malingering Narrative Course IV access is obtained. Patient's given a total of 2 L normal saline. Patient is on a monitor. Patient is taken out of his wet clothes. He is covered in warm blankets. It was noted that his initial core temperature was 2 below normal. Patient's EKG shows no acute ST-T wave changes. The patient's mentation is gradually improved as his alcohol has been metabolized. The patient's pulse has come off. His blood pressure has come up. His activity level has now normalized. The patient is considered medically stable and can be discharged safely. This alcohol dependence with acute intoxication Diagnosis Primary Impression: Alcohol dependence with acute alcoholic intoxication Additional Impression: alcohol dependency Patient Instructions: General Instructions Additional Instructions: Rest. Increase fluids. Avoid alcohol. Avoid illegal substances. Follow-up with [facility] for detox. Do not operate a car or any heavy machinery under the influence of alcohol or drugs. Follow-up with a medical doctor this week. Return to the ER for emergencies Med/Other Pt SpecificInfo: No Meds Exist/No RX given Scripts No Active Prescriptions or Reported Meds Disposition: 01 DISCHARGE HOME Condition: Stable Devon Luevano Apr 28, 2017 19:48
[2017-04-28] MEDS ORDERED: SODIUM CHLOR 0.9% 1000 ML INJ 1,000 ML IV ONE (20:30)
[2017-04-28 20:59] LABS: AUTOMATED NEUTROPHIL # 3.7 TH/MM3 (1.8-7.7); BASOPHIL % 0.3 % (0.0-2.0); EOSINOPHIL % 0.5 % (0.0-4.0); HEMATOCRIT 39.1 % (39.0-51.0); HEMO FLAGS DIFF FINAL; LYMPH % 28.2 % (9.0-44.0); LYMPHOCYTE # 1.6 TH/MM3 (1.0-4.8); MEAN CELL VOLUME 95.9 FL (80.0-100.0); MEAN CORPUSCULAR HEMOGLOBIN 32.4 PG (27.0-34.0); MEAN CORPUSCULAR HGB CONC 33.8 % (32.0-36.0); MONO % 7.6 % (0.0-8.0); NEUT % 63.4 % (16.0-70.0); PLATELET COUNT 117 TH/MM3 (150-450); RED BLOOD COUNT 4.07 MIL/MM3 (4.50-5.90); RED CELL DISTRIBUTION WIDTH 14.1 % (11.6-17.2); WHITE BLOOD COUNT 5.8 TH/MM3 (4.0-11.0)
[2017-04-28 21:11] LABS: BICARBONATE 25.3 MEQ/L (21.0-32.0); POTASSIUM 3.5 MEQ/L (3.5-5.1)
[2017-04-28 23:00] VITALS: BP 93/65; PULSE 38; RESP 14; TEMP 96.1; O2SAT 97
[2017-04-29 01:14] VITALS: BP 105/63; PULSE 65; RESP 17; O2SAT 97
[2017-04-29 02:15] VITALS: BP 106/61; PULSE 49; RESP 14; O2SAT 95
[2017-04-29 05:03] VITALS: BP 104/63; PULSE 50; RESP 15; O2SAT 96
[2017-04-29 05:37] VITALS: BP 119/63; PULSE 53; RESP 14; O2SAT 95
--- NOTE | 2017-04-29 13:20 | EKG ---
Date Performed: 04/28/2017 Time Performed: 20:42:41 PTAGE: 61 years EKG: Sinus rhythm ST ELEVATION, PROBABLY EARLY REPOLARIZATION BORDERLINE ECG PREVIOUS TRACING : 01/14/2017 13.25 Since previous tracing, early repolarization changes are mo re prominent. DOCTOR: Davie Whitney Interpretating Date/Time 04/29/2017 13:18:48
== END 2017-04-29 06:11 | disposition home or self-care (01) ==
LOC: NEPD 19:07
DX: F10.229 Alcohol dependence with intoxication, unspecified (principal); I48.91 Unspecified atrial fibrillation
CPT/HCPCS: 80048; 85025; 93005; 99283; J7030

== ENCOUNTER 2017-05-11 17:09 | Emergency (ER) | payer OTHER ==
[~2017-05-11] VITALS: Ht 185.4 cm; Wt 73.0 kg
[2017-05-11 18:08] VITALS: BP 128/80; PULSE 99; RESP 18; TEMP 97.8; O2SAT 98
--- NOTE | 2017-05-11 18:14 | PD ---
HPI Chief Complaint: Psychiatric Symptoms Time Seen by Provider: 17:51 Travel History International Travel<30 days: No Contact w/Intl Traveler<30days: No History of Present Illness HPI 62 male presents to emergency department as a Gutierres act from [facility] with suicidal ideations. Patient states that he feels depressed and is concerned about losing his and family. Patient states that he recently came out of detox and states that they would "take him back immediately". Patient denies other ingestions, hallucinations. 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 Patient says he drinks daily to prevent from going through withdrawals. Patient denies fever, chills, chest pain, shortness of breath. He has chronic non bloody diarrhea. States he fell 3 days ago and hit his head. Patient denies loss of consciousness or headaches. Denies blurred vision. PFSH Past Medical History Atrial Fibrillation: Yes Blood Disorders: Yes Anxiety: Yes Depression: Yes Heart Rhythm Problems: No Cancer: No Cardiovascular Problems: Yes High Cholesterol: No Chest Pain: No Congestive Heart Failure: No Cerebrovascular Accident: No Diabetes: No Dialysis: No Diminished Hearing: No Endocrine: No Gastrointestinal Disorders: Yes (COLITIS) GERD: No Hepatitis: Yes (HEP C) Hiatal Hernia: No Heparin Induced Thrombocytopen: No Hypertension: Yes Immune Disorder: No Implanted Vascular Access Dvce: No Immunizations Current: Yes Seizures: Yes (R/T ETOH WD) Past Surgical History Abdominal Surgery: No AICD: No Arteriovenous Shunt: No Cardiac Surgery: No Ear Surgery: No Endocrine Surgery: No Eye Surgery: No Genitourinary Surgery: No Gynecologic Surgery: Yes Insulin Pump: No Joint Replacement: No Neurologic Surgery: No Oral Surgery: Yes Thoracic Surgery: No Other Surgery: Yes (UNKNOWN BACK SURGERY) Social History Alcohol Use: Yes (daily) Tobacco Use: No Substance Use: Yes Allergies-Medications (Allergen,Severity, Reaction): Coded Allergies: Penicillins (Verified Allergy, Unknown, 05/11/17) pt states he has had it before but not sure why its on his record and family members are allergic to penicillin Reported Meds & Prescriptions Reported Meds & Active Scripts Active No Active Prescriptions or Reported Medications Review of Systems Except as stated in HPI: all other systems reviewed are Neg Physical Exam Narrative GENERAL: Well developed well nourished, disheveled and malodorous SKIN: Focused skin assessment warm/dry. HEAD: Normocephalic. Atraumatic. EYES: Pupils equal and round. No scleral icterus. No injection or drainage. EOMI. ENT: No nasal bleeding or discharge. Mucous membranes pink and moist. NECK: Trachea midline. No JVD. No midline tenderness CARDIOVASCULAR: Regular rate and rhythm. No murmur appreciated. RESPIRATORY: No accessory muscle use. Clear to auscultation. Breath sounds equal bilaterally. GASTROINTESTINAL: Abdomen soft, non-tender, nondistended. Hepatomegaly present. MUSCULOSKELETAL: No obvious deformities. No clubbing. No cyanosis. No edema. BACK: No CVA tenderness. No rash. No point tenderness on palpation of the spine. NEUROLOGICAL: Awake and alert. No obvious cranial nerve deficits. Motor grossly within normal limits. Normal speech. PSYCHIATRIC: Appropriate mood and affect; insight and judgment normal. Data Data Last Documented VS Vital Signs Date Time Temp Pulse Resp B/P (MAP) Pulse Ox O2 Delivery O2 Flow Rate FiO2 05/11/17 18:08 97.8 99 18 128/80 (96) 98 Room Air Orders Orders Complete Blood Count With Diff (05/11/17 18:08) Comprehensive Metabolic Panel (05/11/17 18:08) Urinalysis - C+S If Indicated (05/11/17 18:08) Psych Screen (05/11/17 18:08) Drug Screen, Random Urine (05/11/17 18:08) Alcohol (Ethanol) (05/11/17 18:08) Ct Brain W/O Iv Contrast(Rout) (05/11/17 ) Ct Cerv Spine W/O Contrast (05/11/17 ) Alcohol Withdrawal Asmt-Ciwa [id number] (05/11/17 18:14) Flumazenil Inj (Romazicon Inj) (05/11/17 18:15) Lorazepam (Ativan) (05/11/17 18:15) Lorazepam Inj (Ativan Inj) (05/11/17 18:15) Lorazepam (Ativan) (05/11/17 18:15) Lorazepam Inj (Ativan Inj) (05/11/17 18:15) Lorazepam Inj (Ativan Inj) (05/11/17 18:15) Lorazepam Inj (Ativan Inj) (05/11/17 18:15) Labs Laboratory Tests Test 05/11/17 18:38 White Blood Count 8.8 TH/MM3 Red Blood Count 4.17 MIL/MM3 Hemoglobin 13.4 GM/DL Hematocrit 39.4 % Mean Corpuscular Volume 94.6 FL Mean Corpuscular Hemoglobin 32.2 PG Mean Corpuscular Hemoglobin Concent 34.0 % Red Cell Distribution Width 14.0 % Platelet Count 322 TH/MM3 Mean Platelet Volume 6.3 FL Neutrophils (%) (Auto) 44.4 % Lymphocytes (%) (Auto) 45.3 % Monocytes (%) (Auto) 8.2 % Eosinophils (%) (Auto) 1.2 % Basophils (%) (Auto) 0.9 % Neutrophils # (Auto) 3.9 TH/MM3 Lymphocytes # (Auto) 4.0 TH/MM3 Monocytes # (Auto) 0.7 TH/MM3 Eosinophils # (Auto) 0.1 TH/MM3 Basophils # (Auto) 0.1 TH/MM3 CBC Comment DIFF FINAL Differential Comment Urine Color YELLOW Urine Turbidity CLEAR Urine pH 5.0 Urine Specific [place] 1.017 Urine Protein TRACE mg/dL Urine Glucose (UA) NEG mg/dL Urine Ketones NEG mg/dL Urine Occult Blood NEG Urine Nitrite NEG Urine Bilirubin NEG Urine Urobilinogen LESS THAN 2.0 MG/DL Urine Leukocyte Esterase NEG Urine WBC 1 /hpf Microscopic Urinalysis Comment CULT NOT INDICATED Blood Urea Nitrogen 12 MG/DL Creatinine 0.78 MG/DL Random Glucose 87 MG/DL Total Protein 7.9 GM/DL Albumin 3.5 GM/DL Calcium Level 8.1 MG/DL Alkaline Phosphatase 97 U/L Aspartate Amino Transf (AST/SGOT) 40 U/L Alanine Aminotransferase (ALT/SGPT) 49 U/L Total Bilirubin 0.3 MG/DL Sodium Level 143 MEQ/L Potassium Level 3.8 MEQ/L Chloride Level 109 MEQ/L Carbon Dioxide Level 24.9 MEQ/L Anion Gap 9 MEQ/L Estimat Glomerular Filtration Rate 102 ML/MIN Urine Opiates Screen NEG Urine Barbiturates Screen NEG Urine Amphetamines Screen NEG Urine Benzodiazepines Screen NEG Urine Cocaine Screen NEG Urine Cannabinoids Screen NEG Ethyl Alcohol Level 363 MG/DL [facility] Medical Decision Making Medical Screen Exam Complete: Yes Emergency Medical Condition: Yes Differential Diagnosis Malingering, suicidal ideations, depression, alcohol intoxication, alcohol withdrawal Narrative Course 62 male presents to emergency department as a Gutierres act from [employer] intoxicated with suicidal ideations. Patient states that he feels depressed and is concerned about losing his and family. Patient states that he recently came out of detox and states that they would "take him back immediately". Patient denies other ingestions, hallucinations. 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 Patient says he drinks daily to prevent from going through withdrawals. Patient denies fever, chills, chest pain, shortness of breath. He has chronic non bloody diarrhea. States he fell 3 days ago and hit his head. Patient denies loss of consciousness or headaches. Denies blurred vision. According to patient's notes that he brought in today, patient was discharged from inpatient rehabilitation from [facility] on May 09. Patient admits to drinking "enough to stop the withdrawals". I spoke with GWENDOLYN Gallagher regarding this patient. She states that the patient is well known to her and staff. She advised to obtain an alcohol level and the patient does go through alcohol withdrawals frequently and rapidly. [facility] protocol placed. Labs and imaging pending as of transfer of care to Jed Reyes PA-C. Diagnosis Primary Impression: Suicidal ideation Additional Impression: Alcohol intoxication Qualified Codes: F10.920 - Alcohol use, unspecified with intoxication, uncomplicated Scripts No Active Prescriptions or Reported Meds Condition: Stable Kathryn Kohler May 11, 2017 18:14
[2017-05-11] MEDS ORDERED: LORazepam 1 MG TAB PO PRN (18:15)
[2017-05-11] MEDS ORDERED: LORazepam 2 MG/ML VIAL IV PUSH PRN ×4 (18:15)
[2017-05-11] MEDS ORDERED: LORazepam 2 MG TAB PO PRN (18:15)
[2017-05-11] MEDS ORDERED: FLUMAZENIL 0.5 MG/5 ML VIAL IV PUSH PRN (18:15)
--- NOTE | 2017-05-11 19:00 | RADRPT ---
EXAM DATE/TIME: 05/11/2017 18:42 [facility] COMPARISON: CT BRAIN W/O CONTRAST, March 21, 2017, 19:21. INDICATIONS : Patient complains of generalized pain. RADIATION DOSE: 31.55 CTDIvol (mGy) MEDICAL HISTORY : Seizures. Cardiovascular disease Hypertension.Hep C SURGICAL HISTORY : None. ENCOUNTER: Initial ACUITY: 1 day PAIN SCALE: Non-responsive LOCATION: cranial TECHNIQUE: Multiple contiguous axial images were obtained of the head. Using automated exposure control and adj ustment of the mA and/or kV according to patient size, radiation dose was kept as low as reasonably a chievable to obtain optimal diagnostic quality images. DICOM format image data is available electro nically for review and comparison. FINDINGS: CEREBRUM: The ventricles are normal for age. No evidence of midline shift, mass lesion, hemorrhage or acute in farction. No extra-axial fluid collections are seen. POSTERIOR FOSSA: The cerebellum and brainstem are intact. The 4th ventricle is midline. The cerebellopontine angle i s unremarkable. EXTRACRANIAL: The visualized portion of the orbits is intact. There is mild thickening of the glucose of the later al maxillary sinus measuring up to 1 cm, a new finding from prior. SKULL: The calvaria is intact. No evidence of skull fracture. CONCLUSION: 1. No acute findings in the brain. 2. Right maxillary sinus disease. Ming Perkins MD on May 11, 2017 at 18:57 Board Certified Radiologist. This report was verified electronically.
--- NOTE | 2017-05-11 19:03 | RADRPT ---
EXAM DATE/TIME: 05/11/2017 18:42 [facility] COMPARISON: CT BRAIN W/O CONTRAST, May 11, 2017, 18:42. INDICATIONS : Patient complains of generalized pain. RADIATION DOSE: 21.68 CTDIvol (mGy) MEDICAL HISTORY : Seizures. Cardiovascular disease Hypertension.Hep C SURGICAL HISTORY : None. ENCOUNTER: Initial ACUITY: 1 day PAIN SCALE: Non-responsive LOCATION: neck TECHNIQUE: Volumetric scanning of the cervical spine was performed. Multiplanar reconstructions in the sagittal, coronal and oblique axial planes were performed. Using automated exposure control and adjustment o f the mA and/or kV according to patient size, radiation dose was kept as low as reasonably achievable to obtain optimal diagnostic quality images. DICOM format image data is available electronically f or review and comparison. FINDINGS: There is normal alignment of the vertebral bodies of the cervical spine in sagittal projection. Mild curvature of the cervicothoracic spine towards the left. There are moderate discogenic degenerative changes C4-C7 with disc space narrowing and anterior and posterior osteophytes. No evidence of spon dylolisthesis or compression deformity. The atlantoaxial articulation is the posterior elements are in normal alignment without evidence of locked or perched facets. The spinous processes are intact. C2-C3: No fracture seen. The neural foramina are patent. C3-C4: No fracture seen. The neural foramina are patent. C4-C5: No fracture seen. The neural foramina are patent. C5-C6: No fracture seen. The neural foramina are patent. C6-C7: No fracture seen. The neural foramina are patent. C7-T1: No fracture seen. The neural foramina are patent. CONCLUSION: No evidence of compression deformity or spondylolisthesis. Moderate severity discogenic degenerative changes in the mid-lower cervical spine. Ming Perkins MD on May 11, 2017 at 18:58 Board Certified Radiologist. This report was verified electronically.
[2017-05-11 19:13] LABS: AUTOMATED NEUTROPHIL # 3.9 TH/MM3 (1.8-7.7); BASOPHIL # 0.1 TH/MM3 (0-0.2); BASOPHIL % 0.9 % (0.0-2.0); EOSINOPHIL # 0.1 TH/MM3 (0-0.4); EOSINOPHIL % 1.2 % (0.0-4.0); HEMATOCRIT 39.4 % (39.0-51.0); HEMOGLOBIN 13.4 GM/DL (13.0-17.0); LYMPH % 45.3 % (9.0-44.0); MEAN CELL VOLUME 94.6 FL (80.0-100.0); MEAN CORPUSCULAR HEMOGLOBIN 32.2 PG (27.0-34.0); MEAN PLATELET VOLUME 6.3 FL (7.0-11.0); MONO % 8.2 % (0.0-8.0); MONOCYTE # 0.7 TH/MM3 (0-0.9); NEUT % 44.4 % (16.0-70.0); PLATELET COUNT 322 TH/MM3 (150-450); RED BLOOD COUNT 4.17 MIL/MM3 (4.50-5.90); WHITE BLOOD COUNT 8.8 TH/MM3 (4.0-11.0)
[2017-05-11 19:21] LABS: BILIRUBIN, URINE NEG (NEG); BLOOD, URINE NEG (NEG); GLUCOSE,URINE NEG (NEG); KETONE, URINE NEG (NEG); NITRITE,URINE NEG (NEG); URINE COLOR YELLOW (YELLW/STRAW); URINE LEUKOCYTE ESTERASE NEG (NEG)
[2017-05-11 19:25] LABS: ALBUMIN 3.5 GM/DL (3.4-5.0); AST (GOT) 40 U/L (15-37); BICARBONATE 24.9 MEQ/L (21.0-32.0); BLOOD UREA NITROGEN 12 MG/DL (7-18); CALCIUM 8.1 MG/DL (8.5-10.1); CHLORIDE 109 MEQ/L (98-107); CREATININE 0.78 MG/DL (0.60-1.30); GLOMERULAR FILTRATION RATE 102 ML/MIN (>89); GLUCOSE,RANDOM 87 MG/DL (74-106); SODIUM (NA) 143 MEQ/L (136-145)
[2017-05-11 19:26] LABS: ALT (GPT) 49 U/L (12-78)
[2017-05-11 19:30] LABS: ALKALINE PHOSPHATASE 97 U/L (45-117); TOTAL BILIRUBIN ADULT 0.3 MG/DL (0.2-1.0); TOTAL PROTEIN 7.9 GM/DL (6.4-8.2)
--- NOTE | 2017-05-11 20:09 | PD ---
Physical Exam Time Seen by Provider: 20:05 Data Data Last Documented VS Vital Signs Date Time Temp Pulse Resp B/P (MAP) Pulse Ox O2 Delivery O2 Flow Rate FiO2 05/11/17 18:08 97.8 99 18 128/80 (96) 98 Room Air Orders Orders Complete Blood Count With Diff (05/11/17 18:08) Comprehensive Metabolic Panel (05/11/17 18:08) Urinalysis - C+S If Indicated (05/11/17 18:08) Psych Screen (05/11/17 18:08) Drug Screen, Random Urine (05/11/17 18:08) Alcohol (Ethanol) (05/11/17 18:08) Ct Brain W/O Iv Contrast(Rout) (05/11/17 ) Ct Cerv Spine W/O Contrast (05/11/17 ) Alcohol Withdrawal Asmt-Ciwa Q4HX18 (05/11/17 18:14) Flumazenil Inj (Romazicon Inj) (05/11/17 18:15) Lorazepam (Ativan) (05/11/17 18:15) Lorazepam Inj (Ativan Inj) (05/11/17 18:15) Lorazepam (Ativan) (05/11/17 18:15) Lorazepam Inj (Ativan Inj) (05/11/17 18:15) Lorazepam Inj (Ativan Inj) (05/11/17 18:15) Lorazepam Inj (Ativan Inj) (05/11/17 18:15) Labs Laboratory Tests Test 05/11/17 18:38 White Blood Count 8.8 TH/MM3 Red Blood Count 4.17 MIL/MM3 Hemoglobin 13.4 GM/DL Hematocrit 39.4 % Mean Corpuscular Volume 94.6 FL Mean Corpuscular Hemoglobin 32.2 PG Mean Corpuscular Hemoglobin Concent 34.0 % Red Cell Distribution Width 14.0 % Platelet Count 322 TH/MM3 Mean Platelet Volume 6.3 FL Neutrophils (%) (Auto) 44.4 % Lymphocytes (%) (Auto) 45.3 % Monocytes (%) (Auto) 8.2 % Eosinophils (%) (Auto) 1.2 % Basophils (%) (Auto) 0.9 % Neutrophils # (Auto) 3.9 TH/MM3 Lymphocytes # (Auto) 4.0 TH/MM3 Monocytes # (Auto) 0.7 TH/MM3 Eosinophils # (Auto) 0.1 TH/MM3 Basophils # (Auto) 0.1 TH/MM3 CBC Comment DIFF FINAL Differential Comment Urine Color YELLOW Urine Turbidity CLEAR Urine pH 5.0 Urine Specific [place] 1.017 Urine Protein TRACE mg/dL Urine Glucose (UA) NEG mg/dL Urine Ketones NEG mg/dL Urine Occult Blood NEG Urine Nitrite NEG Urine Bilirubin NEG Urine Urobilinogen LESS THAN 2.0 MG/DL Urine Leukocyte Esterase NEG Urine WBC 1 /hpf Microscopic Urinalysis Comment CULT NOT INDICATED Blood Urea Nitrogen 12 MG/DL Creatinine 0.78 MG/DL Random Glucose 87 MG/DL Total Protein 7.9 GM/DL Albumin 3.5 GM/DL Calcium Level 8.1 MG/DL Alkaline Phosphatase 97 U/L Aspartate Amino Transf (AST/SGOT) 40 U/L Alanine Aminotransferase (ALT/SGPT) 49 U/L Total Bilirubin 0.3 MG/DL Sodium Level 143 MEQ/L Potassium Level 3.8 MEQ/L Chloride Level 109 MEQ/L Carbon Dioxide Level 24.9 MEQ/L Anion Gap 9 MEQ/L Estimat Glomerular Filtration Rate 102 ML/MIN Urine Opiates Screen NEG Urine Barbiturates Screen NEG Urine Amphetamines Screen NEG Urine Benzodiazepines Screen NEG Urine Cocaine Screen NEG Urine Cannabinoids Screen NEG Ethyl Alcohol Level 363 MG/DL [facility] Medical Record Reviewed: Yes Supervised Visit with DIANNE: No Narrative Course This patient was signed out to me pending lab work and imaging studies. Briefly this is a patient who is here under a hogan act. He is imaging studies are normal. His alcohol level is 363. He is medically cleared for psychiatric disposition. Diagnosis Primary Impression: Suicidal ideation Additional Impression: Alcohol intoxication Qualified Codes: F10.920 - Alcohol use, unspecified with intoxication, uncomplicated Scripts No Active Prescriptions or Reported Meds Condition: Stable Jed Pires May 11, 2017 20:09
[2017-05-11 23:45] VITALS: BP 130/78; PULSE 89; RESP 18; O2SAT 98
[2017-05-12 02:25] VITALS: BP 131/82; PULSE 95; RESP 18; O2SAT 98
[2017-05-12 05:22] VITALS: BP 134/86; PULSE 83; RESP 16; TEMP 98.4; O2SAT 97
[2017-05-12 06:29] VITALS: BP 147/68; PULSE 91; RESP 16; TEMP 98.6; O2SAT 96
[2017-05-12 11:05] VITALS: BP 156/90; PULSE 108; RESP 16; TEMP 99.5; O2SAT 97
--- NOTE | 2017-05-12 11:06 | PD ---
Data Data Last Documented VS Vital Signs Date Time Temp Pulse Resp B/P (MAP) Pulse Ox O2 Delivery O2 Flow Rate FiO2 05/12/17 11:37 05/12/17 11:05 99.5 108 16 97 05/12/17 06:29 Room Air Orders Orders Complete Blood Count With Diff (05/11/17 18:08) Comprehensive Metabolic Panel (05/11/17 18:08) Urinalysis - C+S If Indicated (05/11/17 18:08) Psych Screen (05/11/17 18:08) Drug Screen, Random Urine (05/11/17 18:08) Alcohol (Ethanol) (05/11/17 18:08) Ct Brain W/O Iv Contrast(Rout) (05/11/17 ) Ct Cerv Spine W/O Contrast (05/11/17 ) Alcohol Withdrawal Asmt-Ciwa Q4HX18 (05/11/17 18:14) Flumazenil Inj (Romazicon Inj) (05/11/17 18:15) Lorazepam (Ativan) (05/11/17 18:15) Lorazepam Inj (Ativan Inj) (05/11/17 18:15) Lorazepam (Ativan) (05/11/17 18:15) Lorazepam Inj (Ativan Inj) (05/11/17 18:15) Lorazepam Inj (Ativan Inj) (05/11/17 18:15) Lorazepam Inj (Ativan Inj) (05/11/17 18:15) Ed Discharge Order (05/12/17 11:10) Labs Laboratory Tests Test 05/11/17 18:38 White Blood Count 8.8 TH/MM3 Red Blood Count 4.17 MIL/MM3 Hemoglobin 13.4 GM/DL Hematocrit 39.4 % Mean Corpuscular Volume 94.6 FL Mean Corpuscular Hemoglobin 32.2 PG Mean Corpuscular Hemoglobin Concent 34.0 % Red Cell Distribution Width 14.0 % Platelet Count 322 TH/MM3 Mean Platelet Volume 6.3 FL Neutrophils (%) (Auto) 44.4 % Lymphocytes (%) (Auto) 45.3 % Monocytes (%) (Auto) 8.2 % Eosinophils (%) (Auto) 1.2 % Basophils (%) (Auto) 0.9 % Neutrophils # (Auto) 3.9 TH/MM3 Lymphocytes # (Auto) 4.0 TH/MM3 Monocytes # (Auto) 0.7 TH/MM3 Eosinophils # (Auto) 0.1 TH/MM3 Basophils # (Auto) 0.1 TH/MM3 CBC Comment DIFF FINAL Differential Comment Urine Color YELLOW Urine Turbidity CLEAR Urine pH 5.0 Urine Specific [place] 1.017 Urine Protein TRACE mg/dL Urine Glucose (UA) NEG mg/dL Urine Ketones NEG mg/dL Urine Occult Blood NEG Urine Nitrite NEG Urine Bilirubin NEG Urine Urobilinogen LESS THAN 2.0 MG/DL Urine Leukocyte Esterase NEG Urine WBC 1 /hpf Microscopic Urinalysis Comment CULT NOT INDICATED Blood Urea Nitrogen 12 MG/DL Creatinine 0.78 MG/DL Random Glucose 87 MG/DL Total Protein 7.9 GM/DL Albumin 3.5 GM/DL Calcium Level 8.1 MG/DL Alkaline Phosphatase 97 U/L Aspartate Amino Transf (AST/SGOT) 40 U/L Alanine Aminotransferase (ALT/SGPT) 49 U/L Total Bilirubin 0.3 MG/DL Sodium Level 143 MEQ/L Potassium Level 3.8 MEQ/L Chloride Level 109 MEQ/L Carbon Dioxide Level 24.9 MEQ/L Anion Gap 9 MEQ/L Estimat Glomerular Filtration Rate 102 ML/MIN Urine Opiates Screen NEG Urine Barbiturates Screen NEG Urine Amphetamines Screen NEG Urine Benzodiazepines Screen NEG Urine Cocaine Screen NEG Urine Cannabinoids Screen NEG Ethyl Alcohol Level 363 MG/DL MDM Supervised Visit with DIANNE: Yes Narrative Course Is asked by psychiatry department to see this patient Gutierres act was lifted this morning. A 62-year-old male well known to me in this department for previous visits for alcohol intoxication suicidal ideation. No visible with complaint of warrants further workup at this time is medically cleared by psychiatry for discharge. Patient is a in the emergency department, clinically sober. Diagnosis Primary Impression: Suicidal ideation Additional Impression: Alcohol intoxication Qualified Codes: F10.920 - Alcohol use, unspecified with intoxication, uncomplicated Scripts No Active Prescriptions or Reported Meds Disposition: 01 DISCHARGE HOME Condition: Stable Kaleb Damon MD May 12, 2017 11:05
--- NOTE | 2017-05-12 11:18 | PD.PSY.CON ---
Provisional Diagnosis Admission Date [place] I. Alcohol abuse with acute alcohol intoxication f 10.229 History of Present Illness Service Psychiatry Consult Requested By EDMD Reason for Consult Ugtierres act Primary Care Physician No Primary Care Physician HPI Patient is 62 white male well known to us from multiple prior contacts primarily related to his alcohol misuse. He has multiple values going back to 2016 the highest being 495. Patient was brought to the CDU under Gutierres act by the [place] [employer] Department dated 05/11/17 at 4:30 PM the document has been reviewed and essentially states Darinel is a homeless male who abuses alcoholic beverages Darinel has requested to be Gutierres acted several times within the past years Darinel says is feeling depressed and wanted to because his family doesn't want him anymore based on Darinel suicidal state of mind I determined he could be a danger to himself and with the criteria for an involuntary Gutierres act. Patient seen screened in the ED blood alcohol level of 363. Patient seen in his room on J pod with nurse Evangelista. Patient is alert oriented calm cooperative and quite pleasant with us at lodging his chronic misuse of alcohol. He states he does go to meetings but soon afterwards has a drink. His favorite drink is but He says it is a couple of times per week though I doubt that it appears she does drink daily when considering of the tolerance she has developed. He denies any prior psychiatric contact hospitalization his psychotropic medications. He denies any suicidal ideation intent or plan. He does have a place to live. He is ostracized from his and adult children. At this time patient does not meet Gutierres criteria will lift Gutierres act as okay by psych for discharge when medically clear and stable. No Rx by me. Strong recommendation follow-up AA Review of Systems Constitutional: DENIES: Diaphoretic episodes, Fatigue, Fever, Weight gain, Weight loss, Chills, Dizziness, Change in appetite, Night Sweats Endocrine: DENIES: Heat/cold intolerance, Polydipsia, Polyuria, Polyphagia Eyes: DENIES: Blurred vision, Diplopia, Eye inflammation, Eye pain, Vision loss , Photosensitivity, Double Vision Ears, nose, mouth, throat: DENIES: Tinnitus, Hearing loss, Vertigo, Nasal discharge, Oral lesions, Throat pain, Hoarseness, Ear Pain, Running Nose, Epistaxis, Sinus Pain, Toothache, Odynophagia Respiratory: DENIES: Apneas, Cough, Snoring, Wheezing, Hemoptysis, Sputum production, Shortness of breath Gastrointestinal: DENIES: Abdominal pain, Black stools, Bloody stools, Constipation, Diarrhea, Nausea, Vomiting, Difficulty Swallowing, Anorexia Genitourinary: DENIES: Sexual dysfunction, Urinary frequency, Urinary incontinence, Urgency, Hematuria, Dysuria, Nocturia, Penile Discharge, Testicular Pain, Testicular Swelling Musculoskeletal: DENIES: Joint pain, Muscle aches, Stiffness, Joint Swelling, Back pain, Neck pain Integumentary: DENIES: Abnormal pigmentation, Nail changes, Pruritus, Rash Hematologic/lymphatic: DENIES: Bruising, Lymphadenopathy Immunologic/allergic: DENIES: Eczema, Urticaria Neurologic: DENIES: Abnormal gait, Headache, Localized weakness, Paresthesias, Seizures, Speech Problems, Tremor, Poor Balance Psychiatric: DENIES: Anxiety, Confusion, Mood changes, Depression, Hallucinations, Agitation, Suicidal Ideation, Homicidal Ideation, Delusions Past Family Social History Coded Allergies: Penicillins (Verified Allergy, Unknown, 05/11/17) pt states he has had it before but not sure why its on his record and family members are allergic to penicillin No Active Prescriptions or Reported Meds Current Medications Medications (Trade) Dose Ordered Sig/Pawel Route Start Time Stop Time Status Last Admin (Romazicon Inj) 0.2 mg Q1M PRN IV PUSH 05/11/17 18:15 (Ativan) 1 mg Q4H PRN PO 05/11/17 18:15 05/12/17 04:05 (Ativan Inj) 1 mg Q4H PRN IV PUSH 05/11/17 18:15 (Ativan) 2 mg Q2H PRN PO 05/11/17 18:15 05/12/17 08:29 (Ativan Inj) 2 mg Q2H PRN IV PUSH 05/11/17 18:15 (Ativan Inj) 2 mg Q1H PRN IV PUSH 05/11/17 18:15 (Ativan Inj) 2 mg Q15M PRN IV PUSH 05/11/17 18:15 Family Psych History Patient denies Social History Patient alcoholic lives by self is ostracized from family Patient's Strengths (min. 2) Patient verbal intellectual axis health care Physical Exam Patient medically cleared ED Vital Signs Vital Signs Date Time Temp Pulse Resp B/P (MAP) Pulse Ox O2 Delivery O2 Flow Rate FiO2 05/12/17 11:05 99.5 108 16 156/90 (112) 97 05/12/17 06:29 Room Air I/O 05/12/17 05/12/17 05/13/17 08:00 16:00 00:00 Intake Total 591 ml Balance 591 ml Lab Results Test 05/11/17 18:38 White Blood Count 8.8 TH/MM3 Red Blood Count 4.17 MIL/MM3 Hemoglobin 13.4 GM/DL Hematocrit 39.4 % Mean Corpuscular Volume 94.6 FL Mean Corpuscular Hemoglobin 32.2 PG Mean Corpuscular Hemoglobin Concent 34.0 % Red Cell Distribution Width 14.0 % Platelet Count 322 TH/MM3 Mean Platelet Volume 6.3 FL Neutrophils (%) (Auto) 44.4 % Lymphocytes (%) (Auto) 45.3 % Monocytes (%) (Auto) 8.2 % Eosinophils (%) (Auto) 1.2 % Basophils (%) (Auto) 0.9 % Neutrophils # (Auto) 3.9 TH/MM3 Lymphocytes # (Auto) 4.0 TH/MM3 Monocytes # (Auto) 0.7 TH/MM3 Eosinophils # (Auto) 0.1 TH/MM3 Basophils # (Auto) 0.1 TH/MM3 CBC Comment DIFF FINAL Differential Comment Urine Color YELLOW Urine Turbidity CLEAR Urine pH 5.0 Urine Specific [place] 1.017 Urine Protein TRACE mg/dL Urine Glucose (UA) NEG mg/dL Urine Ketones NEG mg/dL Urine Occult Blood NEG Urine Nitrite NEG Urine Bilirubin NEG Urine Urobilinogen LESS THAN 2.0 MG/DL Urine Leukocyte Esterase NEG Urine WBC 1 /hpf Microscopic Urinalysis Comment CULT NOT INDICATED Blood Urea Nitrogen 12 MG/DL Creatinine 0.78 MG/DL Random Glucose 87 MG/DL Total Protein 7.9 GM/DL Albumin 3.5 GM/DL Calcium Level 8.1 MG/DL Alkaline Phosphatase 97 U/L Aspartate Amino Transf (AST/SGOT) 40 U/L Alanine Aminotransferase (ALT/SGPT) 49 U/L Total Bilirubin 0.3 MG/DL Sodium Level 143 MEQ/L Potassium Level 3.8 MEQ/L Chloride Level 109 MEQ/L Carbon Dioxide Level 24.9 MEQ/L Anion Gap 9 MEQ/L Estimat Glomerular Filtration Rate 102 ML/MIN Urine Opiates Screen NEG Urine Barbiturates Screen NEG Urine Amphetamines Screen NEG Urine Benzodiazepines Screen NEG Urine Cocaine Screen NEG Urine Cannabinoids Screen NEG Ethyl Alcohol Level 363 MG/DL Mental Status Examination Appearance: Disheveled Consciousness: Alert Orientation: Person, Place, Date/Time, Situation Motor Activity: Normal gait Speech: Unremarkable Language: Adequate Fund of Knowledge: Adequate Attention and Concentration: Adequate Memory: Unremarkable (poor) Mood: Other (euthymic) Affect: Other (good range and intensity) Thought Process & Associations: Intact Thought Content: Appropriate Hallucination Type: None Delusion Type: None Suicidal Ideation: No Suicidal Plan: No Suicidal Intention: No Homicidal Ideation: No Homicidal Plan: No Homicidal Intention: No Insight: Fair Judgment: Poor Assessment & Plan Problem List: (1) Alcohol dependence with acute alcoholic intoxication ICD Codes: F10.229 - Alcohol dependence with intoxication, unspecified Status: Acute Assessment & Plan Estimated LOS: days patient does not meet Gutierres criteria will lift Gutierres act. It is okay by psych for discharge when medically clear and stable. No Rx by me. Referred to AA Discharge Planning See above Request HC Surrog/Guard Advoc?: No Problem Qualifiers (1) Alcohol dependence with acute alcoholic intoxication: Qualified Codes: F10.220 - Alcohol dependence with intoxication, uncomplicated Stephen Sultana MD May 12, 2017 11:18
== END 2017-05-12 11:39 | disposition home or self-care (01) ==
LOC: NEDAMB 17:09 → NEPJ 05-12 11:39
DX: R45.851 Suicidal ideations (principal); F10.129 Alcohol abuse with intoxication, unspecified; B19.20 Unspecified viral hepatitis C without hepatic coma; Y90.8 Blood alcohol level of 240 mg/100 ml or more
CPT/HCPCS: 70450; 72125; 80053; 80307; 81001; 85025; 99285

== ENCOUNTER 2017-05-13 10:26 | Emergency (ER) | payer SELFPAY ==
[2017-05-13 11:17] VITALS: BP 125/68; PULSE 90; RESP 18; TEMP 95.9; O2SAT 91
--- NOTE | 2017-05-13 11:21 | PD ---
HPI Chief Complaint: Psychiatric Symptoms Time Seen by Provider: 11:05 Travel History International Travel<30 days: No Contact w/Intl Traveler<30days: No History of Present Illness HPI Patient is a 62-year-old male well-known to me in this department for multiple presentations for alcohol intoxication and suicidal ideation. Patient on arrival to the emergency department had a trip and fall where and he hit his head and face. He is heavily intoxicated on arrival. The patient found by me lying on the floor next to a bed in J pod. He has no complaints currently. PFSH Past Medical History Atrial Fibrillation: Yes Blood Disorders: Yes Anxiety: Yes Depression: Yes Heart Rhythm Problems: No Cancer: No Cardiovascular Problems: Yes High Cholesterol: No Chest Pain: No Congestive Heart Failure: No Cerebrovascular Accident: No Diabetes: No Dialysis: No Diminished Hearing: No Endocrine: No Gastrointestinal Disorders: Yes (COLITIS) GERD: No Hepatitis: Yes (HEP C) Hiatal Hernia: No Heparin Induced Thrombocytopen: No Hypertension: Yes Immune Disorder: No Implanted Vascular Access Dvce: No Psychiatric: Yes Immunizations Current: Yes Seizures: Yes (R/T ETOH WD) Past Surgical History Abdominal Surgery: No AICD: No Arteriovenous Shunt: No Cardiac Surgery: No Ear Surgery: No Endocrine Surgery: No Eye Surgery: No Genitourinary Surgery: No Gynecologic Surgery: Yes Insulin Pump: No Joint Replacement: No Neurologic Surgery: No Oral Surgery: Yes Thoracic Surgery: No Other Surgery: Yes (BACK SURGERY) Social History Alcohol Use: Yes (daily) Tobacco Use: No Substance Use: Yes Allergies-Medications (Allergen,Severity, Reaction): Coded Allergies: Penicillins (Verified Allergy, Unknown, 05/11/17) pt states he has had it before but not sure why its on his record and family members are allergic to penicillin Reported Meds & Prescriptions Reported Meds & Active Scripts Active No Active Prescriptions or Reported Medications Review of Systems Except as stated in HPI: all other systems reviewed are Neg Physical Exam Narrative GENERAL: Well-developed well-nourished, no obvious distress, unkempt, smells of alcohol. SKIN: Focused skin assessment warm/dry. HEAD: Atraumatic. Normocephalic. EYES: Pupils equal and round. No scleral icterus. No injection or drainage. ENT: No nasal bleeding or discharge. Mucous membranes pink and moist. NECK: Trachea midline. No JVD. CARDIOVASCULAR: Regular rate and rhythm. No murmur appreciated. RESPIRATORY: No accessory muscle use. Clear to auscultation. Breath sounds equal bilaterally. GASTROINTESTINAL: Abdomen soft, non-tender, nondistended. Hepatic and splenic margins not palpable. MUSCULOSKELETAL: No obvious deformities. No clubbing. No cyanosis. No edema. No midline CT or L-spine tenderness. C-collar placed in a J-POD NEUROLOGICAL: Awake and alert. No obvious cranial nerve deficits. Motor grossly within normal limits. Normal speech. PSYCHIATRIC: Appropriate mood and affect; insight and judgment normal. Data Data Last Documented VS Vital Signs Date Time Temp Pulse Resp B/P (MAP) Pulse Ox O2 Delivery O2 Flow Rate FiO2 05/13/17 15:48 86 18 95/54 (68) 100 Room Air 05/13/17 11:17 95.9 Orders Orders Comprehensive Metabolic Panel (05/13/17 11:06) Basic Metabolic Panel (Bmp) (05/13/17 11:06) Psych Screen (05/13/17 11:06) Drug Screen, Random Urine (05/13/17 11:06) Alcohol (Ethanol) (05/13/17 11:06) Ct Brain W/O Iv Contrast(Rout) (05/13/17 ) Ct Cerv Spine W/O Contrast (05/13/17 ) Apply Cervical Collar (05/13/17 11:06) Alcohol Withdrawal Asmt-Ciwa Q4HX18 (05/13/17 11:48) Lorazepam (Ativan) (05/13/17 12:00) Lorazepam Inj (Ativan Inj) (05/13/17 12:00) Lorazepam (Ativan) (05/13/17 12:00) Lorazepam Inj (Ativan Inj) (05/13/17 12:00) Lorazepam Inj (Ativan Inj) (05/13/17 12:00) Lorazepam Inj (Ativan Inj) (05/13/17 12:00) Labs Laboratory Tests Test 05/13/17 13:10 Blood Urea Nitrogen 7 MG/DL Creatinine 0.74 MG/DL Random Glucose 95 MG/DL Total Protein 7.4 GM/DL Albumin 3.2 GM/DL Calcium Level 7.7 MG/DL Alkaline Phosphatase 90 U/L Aspartate Amino Transf (AST/SGOT) 35 U/L Alanine Aminotransferase (ALT/SGPT) 42 U/L Total Bilirubin 0.2 MG/DL Sodium Level 149 MEQ/L Potassium Level 4.2 MEQ/L Chloride Level 116 MEQ/L Carbon Dioxide Level 25.4 MEQ/L Anion Gap 8 MEQ/L Estimat Glomerular Filtration Rate 108 ML/MIN Ethyl Alcohol Level 399 MG/DL [facility] Medical Decision Making Medical Screen Exam Complete: Yes Emergency Medical Condition: Yes Differential Diagnosis Alcohol intoxication, fall, head injury, neck injury. Narrative Course Patient well known to this department and myself for frequent presentations for alcohol intoxication, he is under Gutierres act today, had a fall in psychiatry, CTs are negative, medically has no complaints to warrant further workup, medically cleared for psychiatric evaluation. Patient is significantly more intoxicated than I saw him the other day, alcohol level is 399 drawn several hours after admission to the ER. We'll need to sober up prior to discharge and demonstrate ambulation prior to discharge. Diagnosis Primary Impression: Fall Additional Impressions: Alcohol intoxication Suicidal ideation Scripts No Active Prescriptions or Reported Meds Condition: Stable Kaleb Damon MD May 13, 2017 11:21
--- NOTE | 2017-05-13 11:35 | RADRPT ---
EXAM DATE/TIME: 05/13/2017 11:06 [facility] COMPARISON: CT BRAIN W/O CONTRAST, May 11, 2017, 18:42. INDICATIONS : Trauma, fall. RADIATION DOSE: 56.35 CTDIvol (mGy) MEDICAL HISTORY : Seizures. Hypertension. Hepatitis C. SURGICAL HISTORY : None. ENCOUNTER: Initial ACUITY: 1 day PAIN SCALE: Non-responsive LOCATION: cranial TECHNIQUE: Multiple contiguous axial images were obtained of the head. Using automated exposure control and adj ustment of the mA and/or kV according to patient size, radiation dose was kept as low as reasonably a chievable to obtain optimal diagnostic quality images. DICOM format image data is available electro nically for review and comparison. FINDINGS: CEREBRUM: The ventricles are normal for age. No evidence of midline shift, mass lesion, hemorrhage or acute in farction. No extra-axial fluid collections are seen. POSTERIOR FOSSA: The cerebellum and brainstem are intact. The 4th ventricle is midline. The cerebellopontine angle i s unremarkable. EXTRACRANIAL: The visualized portion of the orbits is intact. SKULL: The calvaria is intact. No evidence of skull fracture. CONCLUSION: Negative for acute process. Sanjiv Hamilton MD FACR on May 13, 2017 at 11:33 Board Certified Radiologist. This report was verified electronically.
--- NOTE | 2017-05-13 11:42 | RADRPT ---
EXAM DATE/TIME: 05/13/2017 11:07 [facility] COMPARISON: CT CERVICAL SPINE W/O CONTRAST, May 11, 2017, 18:42. INDICATIONS : Trauma, fall. RADIATION DOSE: 35.61 CTDIvol (mGy) MEDICAL HISTORY : Hypertension. Seizures. SURGICAL HISTORY : None. ENCOUNTER: Initial ACUITY: 1 day PAIN SCALE: Non-responsive LOCATION: neck TECHNIQUE: Volumetric scanning of the cervical spine was performed. Multiplanar reconstructions in the sagittal, coronal and oblique axial planes were performed. Using automated exposure control and adjustment o f the mA and/or kV according to patient size, radiation dose was kept as low as reasonably achievable to obtain optimal diagnostic quality images. DICOM format image data is available electronically f or review and comparison. FINDINGS: VERTEBRAE: Normal vertebral body height. ALIGNMENT: No evidence of subluxation. C2-C3: The bony spinal canal is normal in size. No evidence of disc bulge or herniation. The neural forami na are bilaterally patent. C3-C4: Mild uncinate ridging present without significant stenosis. C4-C5: Scaj-ch-kwysmiel uncinate ridging present with minimal bilateral neural foramina encroachment. C5-C6: Moderate uncinate ridging present with minimal bilateral neural foramina encroachment. C6-C7: The bony spinal canal is normal in size. No evidence of disc bulge or herniation. The neural forami na are bilaterally patent. C7-T1: The bony spinal canal is normal in size. No evidence of disc bulge or herniation. The neural forami na are bilaterally patent. CONCLUSION: Degenerative changes, negative for fracture. Sanjiv Hamilton MD FACR on May 13, 2017 at 11:37 Board Certified Radiologist. This report was verified electronically.
[2017-05-13] MEDS ORDERED: LORazepam 2 MG/ML VIAL IV PUSH PRN ×4 (12:00)
[2017-05-13] MEDS ORDERED: LORazepam 1 MG TAB PO PRN (12:00)
[2017-05-13 13:49] LABS: ALBUMIN 3.2 GM/DL (3.4-5.0); AST (GOT) 35 U/L (15-37); BICARBONATE 25.4 MEQ/L (21.0-32.0); BLOOD UREA NITROGEN 7 MG/DL (7-18); CALCIUM 7.7 MG/DL (8.5-10.1); CHLORIDE 116 MEQ/L (98-107); CREATININE 0.74 MG/DL (0.60-1.30); GLOMERULAR FILTRATION RATE 108 ML/MIN (>89); GLUCOSE,RANDOM 95 MG/DL (74-106); SODIUM (NA) 149 MEQ/L (136-145)
[2017-05-13 13:55] LABS: ALKALINE PHOSPHATASE 90 U/L (45-117); ALT (GPT) 42 U/L (12-78); TOTAL BILIRUBIN ADULT 0.2 MG/DL (0.2-1.0); TOTAL PROTEIN 7.4 GM/DL (6.4-8.2)
[2017-05-13 15:48] VITALS: BP 95/54; PULSE 86; RESP 18; O2SAT 100
[2017-05-13 17:52] VITALS: BP 145/69; PULSE 94; RESP 18
[2017-05-13] MEDS: LORazepam 2 MG TAB PO PRN ×2 (17:57→22:03)
[2017-05-13 22:01] VITALS: BP 133/76; PULSE 83; RESP 18; TEMP 99.9; O2SAT 97
[2017-05-14 02:01] VITALS: BP 134/64; PULSE 81; RESP 18; TEMP 100.5; O2SAT 97
[2017-05-14] MEDS: LORazepam 2 MG TAB PO PRN ×2 (02:57→07:41)
[2017-05-14 06:25] VITALS: BP 151/83; PULSE 99; RESP 18; TEMP 99.8; O2SAT 95
--- NOTE | 2017-05-14 09:19 | PD ---
History of Present Illness Chief Complaint: Psychiatric Symptoms Time Seen by Provider: 09:00 Travel History International Travel<30 Days: No Contact w/Intl Traveler<30days: No Known affected area: No Legal Status Legal Status: Gutierres Act Gutierres Act Signed By: Checo Fermin History of Present Illness: 62-year-old male very well known to this physician, Gutierres acted for making suicidal threats while intoxicated. Patient no longer intoxicated and denies any suicidal or homicidal ideation, plan or intent. No psychotic symptoms and no cognitive deficits. Patient verbally contracts for safety and he is competent to do so. He wants to leave and is not interested in detox or rehabilitation. PFSH Past Medical History Atrial Fibrillation: Yes Blood Disorders: Yes Anxiety: Yes Depression: Yes Heart Rhythm Problems: No Cancer: No Cardiovascular Problems: Yes High Cholesterol: No Chest Pain: No Congestive Heart Failure: No Cerebrovascular Accident: No Diabetes: No Dialysis: No Diminished Hearing: No Endocrine: No Gastrointestinal Disorders: Yes (COLITIS) GERD: No Hepatitis: Yes (HEP C) Hiatal Hernia: No Heparin Induced Thrombocytopen: No Hypertension: Yes Immune Disorder: No Implanted Vascular Access Dvce: No Psychiatric: Yes Immunizations Current: Yes Seizures: Yes (R/T ETOH WD) Past Surgical History Abdominal Surgery: No AICD: No Arteriovenous Shunt: No Cardiac Surgery: No Ear Surgery: No Endocrine Surgery: No Eye Surgery: No Genitourinary Surgery: No Gynecologic Surgery: Yes Insulin Pump: No Joint Replacement: No Neurologic Surgery: No Oral Surgery: Yes Thoracic Surgery: No Other Surgery: Yes (BACK SURGERY) Psychiatric History Psychiatric History Hx Psychiatric Treatment: PATIENT HAS NUMEROUS E.D. VISITS TO THIS FACILITY FOR SUICIDAL IDEATION WHILE INTOXICATED AND GUTIERRES ACTS. History of Inpatient Treatment: Yes Guns or firearms in home: No Social History Hx Alcohol Use: Yes (daily) Hx Tobacco Use: No Hx Substance Use: Yes Substance Use Type: Alcohol Other Substances Used: STARTED DRINKING AT AGE 14. SPENT 8 YRS "DRY" AND THEN "IT GOT BORING" Hx of Substance Use Treatment: Yes Allergies-Medications (Allergen,Severity, Reaction): Coded Allergies: Penicillins (Verified Allergy, Unknown, 05/11/17) pt states he has had it before but not sure why its on his record and family members are allergic to penicillin Reported Meds & Prescriptions Reported Meds & Active Scripts Active No Active Prescriptions or Reported Medications Review of Systems Except as stated in HPI: all other systems reviewed are Neg Mental Status Examination Appearance: Disheveled Consciousness: Alert Orientation: x4 Motor Activity: Normal gait Speech: Unremarkable Language: Adequate Fund of Knowledge: Adequate Attention and Concentration: Adequate Memory: Unremarkable Mood: Appropriate Affect: Appropriate Thought Process & Associations: Intact Thought Content: Appropriate Hallucination Type: None Delusion Type: None Suicidal Ideation: No Suicidal Plan: No Suicidal Intention: No Homicidal Ideation: No Homicidal Plan: No Homicidal Intention: No Insight: Adequate Judgment: Adequate MDM Medical Decision Making Medical Record Reviewed: Yes Assessment/Plan Patient interviewed at bedside. Medical record reviewed. Case discussed with nurse Naidu. Patient does not meet criteria for Gutierres act or involuntary psychiatric hospitalization at this time. Orders Orders Comprehensive Metabolic Panel (05/13/17 11:06) Basic Metabolic Panel (Bmp) (05/13/17 11:06) Psych Screen (05/13/17 11:06) Drug Screen, Random Urine (05/13/17 11:06) Alcohol (Ethanol) (05/13/17 11:06) Ct Brain W/O Iv Contrast(Rout) (05/13/17 ) Ct Cerv Spine W/O Contrast (05/13/17 ) Apply Cervical Collar (05/13/17 11:06) Alcohol Withdrawal Asmt-Ciwa [id number] (05/13/17 11:48) Lorazepam (Ativan) (05/13/17 12:00) Lorazepam Inj (Ativan Inj) (05/13/17 12:00) Lorazepam (Ativan) (05/13/17 12:00) Lorazepam Inj (Ativan Inj) (05/13/17 12:00) Lorazepam Inj (Ativan Inj) (05/13/17 12:00) Lorazepam Inj (Ativan Inj) (05/13/17 12:00) Diet Regular Basic (05/13/17 Dinner) Diet Regular Basic (05/14/17 Breakfast) Results Vital Signs Date Time Temp Pulse Resp B/P (MAP) Pulse Ox O2 Delivery O2 Flow Rate FiO2 05/14/17 06:25 99.8 99 18 151/83 (105) 95 Room Air 05/14/17 02:01 100.5 81 18 134/64 (87) 97 Room Air 05/13/17 22:01 99.9 83 18 133/76 (95) 97 Room Air 05/13/17 17:52 94 18 145/69 (94) 05/13/17 15:48 86 18 95/54 (68) 100 Room Air 05/13/17 11:17 95.9 90 18 125/68 (87) 91 Room Air Laboratory Tests Test 05/13/17 13:10 Blood Urea Nitrogen 7 Creatinine 0.74 Random Glucose 95 Total Protein 7.4 Albumin 3.2 Calcium Level 7.7 Alkaline Phosphatase 90 Aspartate Amino Transf (AST/SGOT) 35 Alanine Aminotransferase (ALT/SGPT) 42 Total Bilirubin 0.2 Sodium Level 149 Potassium Level 4.2 Chloride Level 116 Carbon Dioxide Level 25.4 Anion Gap 8 Estimat Glomerular Filtration Rate 108 Ethyl Alcohol Level 399 Diagnosis Primary Impression: Alcohol abuse Prescriptions No Active Prescriptions or Reported Meds Condition: Stable Davie Oconnell MD May 14, 2017 09:19
== END 2017-05-14 09:37 | disposition home or self-care (01) ==
LOC: NEPJ 10:26
DX: F10.129 Alcohol abuse with intoxication, unspecified (principal); S09.90XA Unspecified injury of head, initial encounter; W01.0XXA Fall on same level from slipping, tripping and stumbling without subsequent striking against object, initial encounter; Y90.8 Blood alcohol level of 240 mg/100 ml or more
CPT/HCPCS: 70450; 72125; 80053; 80307; 99285

== ENCOUNTER 2017-05-14 12:55 | Emergency (ER) | payer SELFPAY ==
--- NOTE | 2017-05-14 13:17 | PD ---
HPI . Alcohol intoxication Chief Complaint: Psychiatric Symptoms Time Seen by Provider: 13:10 Travel History International Travel<30 days: No Contact w/Intl Traveler<30days: No Traveled to known affect area: No History of Present Illness HPI Patient presents to us with alcohol intoxication. The patient was just discharged from here 3 hours ago. He spent the night here last night for suicidal ideation associated with alcohol intoxication. I am told that he received a total of 8 mg of Ativan during the night for CIWA precautions. He admits that he's been out drinking again since being discharged this morning. He wants to go to [facility]. I have told him that he is free to go there but he will have to go there on his own. History Past Medical Histgory Hx Cancer: No Social History Alcohol Use: Yes (daily) Tobacco Use: No Allergies-Medications (Allergen,Severity, Reaction): Coded Allergies: Penicillins (Verified Allergy, Unknown, 05/11/17) pt states he has had it before but not sure why its on his record and family members are allergic to penicillin Reported Meds & Prescriptions Reported Meds & Active Scripts Active No Active Prescriptions or Reported Medications Review of Systems Except as stated in HPI: all other systems reviewed are Neg Psychiatric: Positive: Substance Abuse Physical Exam Narrative GENERAL: Disheveled and intoxicated. SKIN: Warm and dry. HEAD: Normocephalic/atraumatic. EYES: Pupils are equal. Extraocular movements are intact. NECK: Normal range of motion. CARDIOVASCULAR: Regular rate and rhythm. RESPIRATORY: Nonlabored respirations. MUSCULOSKELETAL: Atraumatic. NEUROLOGICAL: Nonfocal. PSYCHIATRIC: Poor judgment. MDM Medical Screen Exam Complete: Yes Emergency Medical Condition: No Narrative Course A medical screening exam was performed: At the time of evaluation the presenting medical condition was determined not to be of an emergent nature. The patient was given the option of receiving additional care, but declined. Patient was given options for additional community resources from which to obtain care. The Patient Has Been advised to seek medical attention for their presenting complaint. The patient has been advised to return to the ER at any time if an emergent condition develops. Primary Impression: Encounter for medical screening examination Patient Instructions: General Instructions Departure Forms: Tests/Procedures Scripts No Active Prescriptions or Reported Meds Condition: Nini Rainey MD May 14, 2017 13:17
== END 2017-05-14 13:18 | disposition left against medical advice (07) ==
LOC: NEPD 12:55
DX: F10.129 Alcohol abuse with intoxication, unspecified (principal); Z88.0 Allergy status to penicillin
CPT/HCPCS: 99281

== ENCOUNTER 2017-05-31 16:32 | Emergency (ER) | payer SELFPAY ==
[~2017-05-31] VITALS: Ht 182.9 cm; Wt 75.0 kg
[2017-05-31 16:33] VITALS: BP 136/65; PULSE 99; RESP 20; TEMP 97.7; O2SAT 94
--- NOTE | 2017-06-01 00:57 | PD ---
HPI Chief Complaint: Psychiatric Symptoms Time Seen by Provider: 00:35 Travel History International Travel<30 days: No Contact w/Intl Traveler<30days: No Traveled to known affect area: No History of Present Illness HPI 62-year-old white male well-known to the ER staff and myself do to alcohol abuse. He presents stating that he feels tremulous. He states that he feels that he is going to due to his alcohol abuse. He had been in [facility] for 3 day detox last week but went directly to the liquor store and started drinking again. He states that is been drinking now for the last 4 days. The patient states that he would like to go back to [facility] for detox again. The patient denies any true suicidal ideation. He denies any active plan. No homicidal ideation. He does report being congested and coughing. No chest pain or shortness of breath. No nausea vomiting. No abdominal pain or diarrhea. Symptoms are moderate. No alleviating factors. Exacerbated by alcohol. PFSH Past Medical History Atrial Fibrillation: Yes Blood Disorders: Yes Anxiety: Yes Depression: Yes Heart Rhythm Problems: No Cancer: No Cardiovascular Problems: Yes High Cholesterol: No Chest Pain: No Congestive Heart Failure: No Cerebrovascular Accident: No Diabetes: No Dialysis: No Diminished Hearing: No Endocrine: No Gastrointestinal Disorders: Yes (COLITIS) GERD: No Hepatitis: Yes (HEP C) Hiatal Hernia: No Heparin Induced Thrombocytopen: No Hypertension: Yes Immune Disorder: No Implanted Vascular Access Dvce: No Psychiatric: Yes Immunizations Current: Yes Seizures: Yes (R/T ETOH WD) Past Surgical History Abdominal Surgery: No AICD: No Arteriovenous Shunt: No Cardiac Surgery: No Ear Surgery: No Endocrine Surgery: No Eye Surgery: No Genitourinary Surgery: No Gynecologic Surgery: Yes Insulin Pump: No Joint Replacement: No Neurologic Surgery: No Oral Surgery: Yes Thoracic Surgery: No Other Surgery: Yes (BACK SURGERY) Social History Alcohol Use: Yes (daily) Tobacco Use: No Substance Use: Yes Allergies-Medications (Allergen,Severity, Reaction): Coded Allergies: Penicillins (Verified Allergy, Unknown, 05/11/17) pt states he has had it before but not sure why its on his record and family members are allergic to penicillin Reported Meds & Prescriptions Reported Meds & Active Scripts Active No Active Prescriptions or Reported Medications Review of Systems General / Constitutional: No: Fever Eyes: No: Visual changes HENT: No: Headaches Cardiovascular: No: Chest Pain or Discomfort Respiratory: Positive: Cough, No: Shortness of Breath Gastrointestinal: No: Abdominal Pain Genitourinary: No: Dysuria Musculoskeletal: No: Pain Skin: No Rash Neurologic: No: Weakness Psychiatric: No: Depression Endocrine: No: Polydipsia Hematologic/Lymphatic: No: Easy Bruising Physical Exam Narrative GENERAL: This is a well-nourished, well-developed patient, in no apparent distress. Patient's mildly tremulous but stops when he is distracted. SKIN: No rashes, ecchymoses or lesions. Warm and dry. HEAD: Atraumatic. Normocephalic. EYES: PERRL, EOMI, no discharge or injection. No scleral icterus. EARS: Clear NOSE: Nasal turbinates appear normal. THROAT: Mucosa pink and moist. Airway patent. NECK: Trachea midline. supple, moves head freely. LUNGS: Clear to auscultation. CV: Regular in rhythm. ABDOMEN: Soft nontender. EXT: No clubbing cyanosis or edema. Data Data Last Documented VS Vital Signs Date Time Temp Pulse Resp B/P (MAP) Pulse Ox O2 Delivery O2 Flow Rate FiO2 05/31/17 16:33 97.7 99 20 136/65 (88) 94 Room Air Orders Orders Lorazepam (Ativan) (06/01/17 01:00) Ed Discharge Order (06/01/17 00:48) MDM Medical Decision Making Medical Screen Exam Complete: Yes Emergency Medical Condition: Yes Medical Record Reviewed: Yes Differential Diagnosis Differential diagnoses: Alcohol intoxication, substance abuse, electrolyte abnormality, malingering Narrative Course The patient is given Ativan 2 mg by mouth. He is advised to follow-up with [facility]. This is alcohol dependence Diagnosis Primary Impression: alcohol dependency Patient Instructions: General Instructions Additional Instructions: Rest. Increase fluids. Avoid alcohol. Avoid illegal substances. Follow-up with [facility] for detox. Do not operate a car or any heavy machinery under the influence of alcohol or drugs. Follow-up with a medical doctor this week. Return to the ER for emergencies Med/Other Pt SpecificInfo: No Meds Exist/No RX given Scripts No Active Prescriptions or Reported Meds Disposition: DISCHARGE HOME Condition: Stable Devon Luevano Jun 01, 2017 00:57
[2017-06-01] MEDS ORDERED: LORazepam 2 MG TAB PO ONE (01:00)
== END 2017-06-01 01:10 | disposition home or self-care (01) ==
LOC: NEPD 16:32
DX: F10.20 Alcohol dependence, uncomplicated (principal); I48.91 Unspecified atrial fibrillation; I10 Essential (primary) hypertension; F41.9 Anxiety disorder, unspecified; F32.9 Major depressive disorder, single episode, unspecified; B19.20 Unspecified viral hepatitis C without hepatic coma
CPT/HCPCS: 99283

== ENCOUNTER 2017-06-03 12:40 | Emergency (ER) | payer SELFPAY ==
[2017-06-03 12:51] VITALS: BP 122/77; PULSE 62; RESP 16; TEMP 98; O2SAT 98
--- NOTE | 2017-06-03 13:28 | PD ---
HPI Chief Complaint: Psychiatric Symptoms Time Seen by Provider: 12:42 Travel History International Travel<30 days: No Contact w/Intl Traveler<30days: No Traveled to known affect area: No History of Present Illness HPI Patient is a 62-year-old male well-known to this emergency department for multiple presentations for suicidal ideation and alcohol intoxication. Strongly suspect malingering in this patient. Patient presents emergency department today saying that he is "at the end of his rope". The patient states that he is really thinking about killing himself this time. He is crying. Appears intoxicated. Brought in by EMS and is not currently under Gutierres act her Aranda act. Head extensive history with the patient at this encounter and he states that he has family in town but they do not allow him to live with him anymore. I had asked him why several times and he avoids the subject of his drinking. When confronted on his alcohol intoxication and his alcoholism the patient the little this fact and turns his head aside and starts crying more. He denies any physical complaints denies any chest pain short of breath abdominal pain nausea vomiting diarrhea constipation fevers chills or trauma to pain. PFSH Past Medical History Atrial Fibrillation: Yes Blood Disorders: Yes Anxiety: Yes Depression: Yes Cardiovascular Problems: Yes Diminished Hearing: No Gastrointestinal Disorders: Yes (COLITIS) Hepatitis: Yes (HEP C) Hypertension: Yes Psychiatric: Yes Immunizations Current: Yes Seizures: Yes (R/T ETOH WD) Past Surgical History Gynecologic Surgery: Yes Oral Surgery: Yes Other Surgery: Yes (BACK SURGERY) Social History Alcohol Use: Yes (daily) Tobacco Use: Yes Substance Use: Yes Allergies-Medications (Allergen,Severity, Reaction): Coded Allergies: Penicillins (Verified Allergy, Unknown, 06/03/17) pt states he has had it before but not sure why its on his record and family members are allergic to penicillin Reported Meds & Prescriptions Reported Meds & Active Scripts Active No Active Prescriptions or Reported Medications Review of Systems Except as stated in HPI: all other systems reviewed are Neg Physical Exam Narrative GENERAL: Well-developed, unkempt in no obvious distress, crying. SKIN: Focused skin assessment warm/dry. HEAD: Atraumatic. Normocephalic. EYES: Pupils equal and round. No scleral icterus. No injection or drainage. ENT: No nasal bleeding or discharge. Mucous membranes pink and moist. NECK: Trachea midline. No JVD. CARDIOVASCULAR: Regular rate and rhythm. No murmur appreciated. RESPIRATORY: No accessory muscle use. Clear to auscultation. Breath sounds equal bilaterally. GASTROINTESTINAL: Abdomen soft, non-tender, nondistended. Hepatic and splenic margins not palpable. MUSCULOSKELETAL: No obvious deformities. No clubbing. No cyanosis. No edema. NEUROLOGICAL: Awake and alert. No obvious cranial nerve deficits. Motor grossly within normal limits. Normal speech. PSYCHIATRIC: Versus suicidal ideation without active plan. Intoxicated. Insight poor. Data Data Last Documented VS Vital Signs Date Time Temp Pulse Resp B/P (MAP) Pulse Ox O2 Delivery O2 Flow Rate FiO2 06/03/17 12:51 98.0 62 16 122/77 (92) 98 Orders Orders Complete Blood Count With Diff (06/03/17 13:19) Comprehensive Metabolic Panel (06/03/17 13:19) Psych Screen (06/03/17 13:19) Drug Screen, Random Urine (06/03/17 13:19) Alcohol (Ethanol) (06/03/17 13:19) MDM Medical Decision Making Medical Screen Exam Complete: Yes Emergency Medical Condition: Yes Differential Diagnosis Alcohol intoxication, malingering, suicidal ideation. Narrative Course Patient is well known to me from previous visits, is very depressed mood, crying , states is at the end of his rope. I had an extensive conversation with the patient regarding his multiple ER visits, and axis of 70 in the year 2017. Patient states that he needs 1 more chance. I had a discussion with Dr. Hanna about this patient and it appears as though the patient has a presentation different from the usual presentation I see him with, we will have a psychiatric consultation and basic psych labs have been ordered. He is medically cleared for psychiatric evaluation. Scripts No Active Prescriptions or Reported Meds Condition: Kaleb Triana MD Jun 03, 2017 13:28
[2017-06-03 20:17] VITALS: BP 128/79; PULSE 64; RESP 16; O2SAT 99
--- NOTE | 2017-06-04 03:24 | PD ---
Physical Exam Time Seen by Provider: 03:23 Narrative Please refer to previous providers documentation for details surrounding the patient's current visit. Data Data Last Documented VS Vital Signs Date Time Temp Pulse Resp B/P (MAP) Pulse Ox O2 Delivery O2 Flow Rate FiO2 06/03/17 20:17 64 16 128/79 (95) 99 Room Air 06/03/17 12:51 98.0 Orders Orders Psych Screen (06/03/17 13:19) Ed Discharge Order (06/04/17 03:22) [facility] Medical Record Reviewed: Yes Supervised Visit with DIANNE: No Narrative Course Patient was medically cleared, seen and evaluated by psychiatry. He does not meet inpatient criteria. He'll be discharged home with outpatient resources. Diagnosis Primary Impression: Alcohol dependence with acute alcoholic intoxication Qualified Codes: F10.229 - Alcohol dependence with intoxication, unspecified Additional Impression: Drug-induced mood disorder Referrals: [facility] (Out patient) Additional Instruction: Stop drinking alcohol Utilize outpatient resources to help in doing so Return immediately to the emergency department with any acute worsening of symptoms Med/Other Pt SpecificInfo: No Change to Meds Scripts No Active Prescriptions or Reported Meds Disposition: 01 DISCHARGE HOME Condition: Stable SalinaKatyaNandaalex ESCOTO Jun 04, 2017 03:24
== END 2017-06-04 05:21 | disposition home or self-care (01) ==
LOC: NEDAMB 12:40
DX: F10.229 Alcohol dependence with intoxication, unspecified (principal); F19.94 Other psychoactive substance use, unspecified with psychoactive substance-induced mood disorder; R45.851 Suicidal ideations; I48.91 Unspecified atrial fibrillation; F41.9 Anxiety disorder, unspecified; F32.9 Major depressive disorder, single episode, unspecified; I10 Essential (primary) hypertension; R56.9 Unspecified convulsions; Z86.19 Personal history of other infectious and parasitic diseases
CPT/HCPCS: 99283

== ENCOUNTER 2017-06-06 10:25 | Emergency (ER) | payer OTHER ==
[2017-06-06 10:41] VITALS: BP 102/58; PULSE 67; RESP 16; TEMP 97.5; O2SAT 98
--- NOTE | 2017-06-06 10:56 | PD ---
HPI Chief Complaint: Psychiatric Symptoms Time Seen by Provider: 10:53 Travel History International Travel<30 days: No Contact w/Intl Traveler<30days: No Traveled to known affect area: No History of Present Illness HPI 62-year-old male brought in under the [place] act for suicidal ideation. Patient is homeless male who is a chronic alcoholic. He states that he doesn't want to live anymore. He states recent drinking mouthwash that she does not want to withdrawal. The patient has had withdrawals in the past from alcohol. Patient denies any medical complaints at this time. He is allergic to penicillin. PFSH Past Medical History Atrial Fibrillation: Yes Blood Disorders: Yes Anxiety: Yes Depression: Yes Cardiovascular Problems: Yes Diminished Hearing: No Gastrointestinal Disorders: Yes (COLITIS) Hepatitis: Yes (HEP C) Hypertension: Yes Psychiatric: Yes Immunizations Current: Yes Seizures: Yes (R/T ETOH WD) Past Surgical History Gynecologic Surgery: Yes Oral Surgery: Yes Other Surgery: Yes (BACK SURGERY) Social History Alcohol Use: Yes (daily) Tobacco Use: Yes Substance Use: Yes Allergies-Medications (Allergen,Severity, Reaction): Coded Allergies: Penicillins (Verified Allergy, Unknown, 06/03/17) pt states he has had it before but not sure why its on his record and family members are allergic to penicillin Reported Meds & Prescriptions Reported Meds & Active Scripts Active No Active Prescriptions or Reported Medications Review of Systems ROS Limitations: Intoxication Except as stated in HPI: all other systems reviewed are Neg General / Constitutional: No: Fever Eyes: No: Visual changes HENT: No: Headaches Cardiovascular: No: Chest Pain or Discomfort Respiratory: No: Shortness of Breath Gastrointestinal: No: Abdominal Pain Genitourinary: No: Dysuria Musculoskeletal: No: Pain Skin: No Rash Neurologic: No: Weakness Psychiatric: No: Depression Endocrine: No: Polydipsia Hematologic/Lymphatic: No: Easy Bruising Physical Exam Exam Limitations: Intoxication Narrative GENERAL: [id number] male obviously intoxicated, but cooperative SKIN: Warm and dry.. Normal turgor. No sign of trauma or open wounds. HEAD: Atraumatic. Normocephalic. EYES: Pupils equal and round. No scleral icterus. No injection or drainage. ENT: No nasal bleeding or discharge. Mucous membranes pink and moist. Pharynx is clear. Airway is patent. NECK: Trachea midline. Supple and nontender. CARDIOVASCULAR: Regular rate and rhythm. RESPIRATORY: No accessory muscle use. Clear to auscultation. Breath sounds equal bilaterally. GASTROINTESTINAL: Abdomen soft, non-tender, nondistended. Hepatic and splenic margins not palpable. MUSCULOSKELETAL: Extremities without clubbing, cyanosis, or edema. No obvious deformities. NEUROLOGICAL: Awake and alert. No obvious cranial nerve deficits. Motor grossly within normal limits. Five out of 5 muscle strength in the arms and legs. Normal speech. PSYCHIATRIC: Appropriate mood and affect; insight and judgment normal. Patient states he wants to kill himself. No specific plan. Data Data Last Documented VS Vital Signs Date Time Temp Pulse Resp B/P (MAP) Pulse Ox O2 Delivery O2 Flow Rate FiO2 06/06/17 13:59 71 15 117/73 (88) 97 Room Air 06/06/17 10:41 97.5 Orders Orders Complete Blood Count With Diff (06/06/17 10:56) Comprehensive Metabolic Panel (06/06/17 10:56) Urinalysis - C+S If Indicated (06/06/17 10:56) Psych Screen (06/06/17 10:56) Drug Screen, Random Urine (06/06/17 10:56) Alcohol (Ethanol) (06/06/17 10:56) Thiamine Inj (Thiamine Inj) (06/06/17 11:00) Alcohol Withdrawal Asmt-Ciwa [id number] (06/06/17 10:56) Flumazenil Inj (Romazicon Inj) (06/06/17 11:00) Lorazepam (Ativan) (06/06/17 11:00) Lorazepam Inj (Ativan Inj) (06/06/17 11:00) Lorazepam (Ativan) (06/06/17 11:00) Lorazepam Inj (Ativan Inj) (06/06/17 11:00) Lorazepam Inj (Ativan Inj) (06/06/17 11:00) Lorazepam Inj (Ativan Inj) (06/06/17 11:00) Haloperidol Inj (Haldol Inj) (06/06/17 11:00) Diet Regular Basic (06/06/17 Lunch) Chlordiazepoxide (Librium) (06/06/17 11:15) Potassium Chloride (Kcl) (06/06/17 14:15) Labs Laboratory Tests Test 06/06/17 11:35 06/06/17 13:10 White Blood Count 5.9 TH/MM3 Red Blood Count 4.29 MIL/MM3 Hemoglobin 13.6 GM/DL Hematocrit 40.0 % Mean Corpuscular Volume 93.3 FL Mean Corpuscular Hemoglobin 31.7 PG Mean Corpuscular Hemoglobin Concent 34.0 % Red Cell Distribution Width 14.2 % Platelet Count 164 TH/MM3 Mean Platelet Volume 6.3 FL Neutrophils (%) (Auto) 48.0 % Lymphocytes (%) (Auto) 36.1 % Monocytes (%) (Auto) 13.8 % Eosinophils (%) (Auto) 1.9 % Basophils (%) (Auto) 0.2 % Neutrophils # (Auto) 2.8 TH/MM3 Lymphocytes # (Auto) 2.1 TH/MM3 Monocytes # (Auto) 0.8 TH/MM3 Eosinophils # (Auto) 0.1 TH/MM3 Basophils # (Auto) 0.0 TH/MM3 CBC Comment DIFF FINAL Differential Comment Blood Urea Nitrogen 9 MG/DL Creatinine 0.75 MG/DL Random Glucose 108 MG/DL Total Protein 7.8 GM/DL Albumin 3.2 GM/DL Calcium Level 8.1 MG/DL Alkaline Phosphatase 76 U/L Aspartate Amino Transf (AST/SGOT) 47 U/L Alanine Aminotransferase (ALT/SGPT) 38 U/L Total Bilirubin 0.4 MG/DL Sodium Level 144 MEQ/L Potassium Level 3.1 MEQ/L Chloride Level 109 MEQ/L Carbon Dioxide Level 26.8 MEQ/L Anion Gap 8 MEQ/L Estimat Glomerular Filtration Rate 106 ML/MIN Ethyl Alcohol Level 386 MG/DL Urine Color LIGHT-YELLOW Urine Turbidity CLEAR Urine pH 6.0 Urine Specific [place] 1.006 Urine Protein NEG mg/dL Urine Glucose (UA) NEG mg/dL Urine Ketones NEG mg/dL Urine Occult Blood NEG Urine Nitrite NEG Urine Bilirubin NEG Urine Urobilinogen LESS THAN 2.0 MG/DL Urine Leukocyte Esterase NEG Urine RBC LESS THAN 1 /hpf Urine WBC LESS THAN 1 /hpf Urine Mucus FEW /lpf Microscopic Urinalysis Comment CULT NOT INDICATED Urine Opiates Screen NEG Urine Barbiturates Screen NEG Urine Amphetamines Screen NEG Urine Benzodiazepines Screen NEG Urine Cocaine Screen NEG Urine Cannabinoids Screen NEG MDM Medical Decision Making Medical Screen Exam Complete: Yes Emergency Medical Condition: Yes Medical Record Reviewed: Yes Differential Diagnosis Alcoholic intoxication. Suicidal ideation. Depression. Narrative Course Patient is stable at time of exam. Labs ordered person psychiatric protocol. CIWA protocol is placed. Patient is given thiamine 1 g IM. Patient is given 25 mg Librium by mouth. Laboratory normal CBC, CMP shows slightly low potassium 3.1. Chloride of 109. Glucose 108. Calcium 8.1. Urinalysis is unremarkable. Urine drug screen is negative. Serum alcohol level is 386. Patient is given 30 mEq of potassium by mouth. Patient is medically cleared for psychiatric eval. Diagnosis Primary Impression: Suicidal ideation Additional Impression: Alcohol dependence with acute alcoholic intoxication Qualified Codes: F10.220 - Alcohol dependence with intoxication, uncomplicated Scripts No Active Prescriptions or Reported Meds Condition: Stable Dion Packer Jun 06, 2017 10:56
[2017-06-06] MEDS ORDERED: THIAMINE HCL 200 MG/2 ML VIAL IM ONE (11:00)
[2017-06-06] MEDS ORDERED: LORazepam 2 MG TAB PO PRN (11:00)
[2017-06-06] MEDS ORDERED: LORazepam 1 MG TAB PO PRN (11:00)
[2017-06-06] MEDS ORDERED: FLUMAZENIL 0.5 MG/5 ML VIAL IV PUSH PRN (11:00)
[2017-06-06] MEDS ORDERED: HALOPERIDOL LACTATE 5 MG/ML AMP IM PRN (11:00)
[2017-06-06] MEDS ORDERED: LORazepam 2 MG/ML VIAL IV PUSH PRN ×4 (11:00)
[2017-06-06] MEDS ORDERED: chlordiazePOXIDE 25 MG CAP PO ONE (11:15)
[2017-06-06 11:33] VITALS: BP 114/74; PULSE 75; RESP 16; O2SAT 98
[2017-06-06 12:11] LABS: AUTOMATED NEUTROPHIL # 2.8 TH/MM3 (1.8-7.7); BASOPHIL % 0.2 % (0.0-2.0); EOSINOPHIL # 0.1 TH/MM3 (0-0.4); EOSINOPHIL % 1.9 % (0.0-4.0); HEMOGLOBIN 13.6 GM/DL (13.0-17.0); LYMPH % 36.1 % (9.0-44.0); LYMPHOCYTE # 2.1 TH/MM3 (1.0-4.8); MEAN CELL VOLUME 93.3 FL (80.0-100.0); MEAN CORPUSCULAR HEMOGLOBIN 31.7 PG (27.0-34.0); MEAN PLATELET VOLUME 6.3 FL (7.0-11.0); MONO % 13.8 % (0.0-8.0); MONOCYTE # 0.8 TH/MM3 (0-0.9); PLATELET COUNT 164 TH/MM3 (150-450); RED BLOOD COUNT 4.29 MIL/MM3 (4.50-5.90); RED CELL DISTRIBUTION WIDTH 14.2 % (11.6-17.2); WHITE BLOOD COUNT 5.9 TH/MM3 (4.0-11.0)
[2017-06-06 12:28] LABS: ALBUMIN 3.2 GM/DL (3.4-5.0); AST (GOT) 47 U/L (15-37); BICARBONATE 26.8 MEQ/L (21.0-32.0); BLOOD UREA NITROGEN 9 MG/DL (7-18); CALCIUM 8.1 MG/DL (8.5-10.1); CHLORIDE 109 MEQ/L (98-107); CREATININE 0.75 MG/DL (0.60-1.30); GLOMERULAR FILTRATION RATE 106 ML/MIN (>89); GLUCOSE,RANDOM 108 MG/DL (74-106); SODIUM (NA) 144 MEQ/L (136-145)
[2017-06-06 12:33] LABS: ALKALINE PHOSPHATASE 76 U/L (45-117); ALT (GPT) 38 U/L (12-78); TOTAL BILIRUBIN ADULT 0.4 MG/DL (0.2-1.0); TOTAL PROTEIN 7.8 GM/DL (6.4-8.2)
[2017-06-06 13:59] VITALS: BP 117/73; PULSE 71; RESP 15; O2SAT 97
[2017-06-06 14:01] LABS: BILIRUBIN, URINE NEG (NEG); BLOOD, URINE NEG (NEG); GLUCOSE,URINE NEG (NEG); KETONE, URINE NEG (NEG); MUCUS URINE FEW /lpf (OCC); NITRITE,URINE NEG (NEG); URINE COLOR LIGHT-YELLOW (YELLW/STRAW); URINE LEUKOCYTE ESTERASE NEG (NEG)
[2017-06-06] MEDS ORDERED: POTASSIUM CHLORIDE 10 MEQ CONTROLLED RELEASE TAB PO ONE (14:15)
[2017-06-06 15:30] VITALS: BP 119/76; PULSE 68; RESP 16; O2SAT 96
[2017-06-06 19:58] VITALS: BP 136/74; PULSE 94; RESP 18; TEMP 97.5; O2SAT 98
[2017-06-06 22:52] VITALS: BP 98/57; PULSE 76; RESP 18; TEMP 99.7; O2SAT 95
== END 2017-06-07 01:07 ==
LOC: NEDAMB 10:25 → NEPJ 06-07 01:07
DX: R45.851 Suicidal ideations (principal); F10.229 Alcohol dependence with intoxication, unspecified; I48.91 Unspecified atrial fibrillation; F41.9 Anxiety disorder, unspecified; F32.9 Major depressive disorder, single episode, unspecified; I10 Essential (primary) hypertension; Z86.19 Personal history of other infectious and parasitic diseases; Z72.0 Tobacco use; Z59.0 Homelessness
CPT/HCPCS: 80053; 80307; 81001; 85025; 96372; 99284; J3411